=== PATIENT | female | born 1945 | race Caucasian/White ===

== ENCOUNTER → 2018-01-02 10:23 | Outpatient (CLI) | payer MEDICARE, BC, SELFPAY ==
--- NOTE | 2018-01-02 10:30 | XR_ITS ---
XR knee RT 3V HISTORY: ITS.REASON: ANTERIOR RT KNEE PAIN ORDERING PHYSICIAN: Joni Valente MD PATIENT AGE: 72 years COMPARISON: None FINDINGS: There are mild osteoarthritic changes of the medial compartment. Increased density is present in the suprapatellar region suggesting small knee joint effusion. No fracture or dislocation. No lytic or blastic change. IMPRESSION: Mild osteoarthritis with small knee joint effusion
== END ==
PROVIDERS: PCP Internal Medicine Adolescent Medicine; Visit Provider Internal Medicine Adolescent Medicine
DX: M25.561 Pain in right knee (principal)
CPT/HCPCS: 73562

== ENCOUNTER → 2018-01-18 10:04 | Outpatient (CLI) | payer MEDICARE, BC, SELFPAY ==
--- NOTE | 2018-01-18 10:07 | XR_ITS ---
XR DEXA axial skeleton HISTORY: ITS.REASON: POST MENOPAUSAL ORDERING PHYSICIAN: Joni Valente MD PATIENT AGE: 72 years COMPARISON: FINDINGS: The BMD measured at the right femoral neck femoral neck is 0.650 g/cm squared with a T score of -2.8. This is considered osteoporotic according to the World Health Organization criteria. Fracture risk is high. Treatment is advised. L1 L4 density has is -0.7. There is sclerosis in the mid lumbar spine. The radius 33% T score is -3.2 IMPRESSION: Osteoporosis with high fracture risk. Treatment suggested. Recommend follow-up exam in January 2019
== END ==
PROVIDERS: PCP Internal Medicine Adolescent Medicine; Visit Provider Internal Medicine Adolescent Medicine
DX: Z13.820 Encounter for screening for osteoporosis (principal); Z78.0 Asymptomatic menopausal state
CPT/HCPCS: 77080

== ENCOUNTER → 2018-04-11 16:07 | Outpatient (CLI) | payer MEDICARE, SELFPAY ==
--- NOTE | 2018-04-11 16:15 | XR_ITS ---
XR hip RT 2-3V w/pelvis HISTORY: ITS.REASON: RT HIP PAIN ORDERING PHYSICIAN: Nae Cortés PATIENT AGE: 72 years COMPARISON: 09/23/2015 FINDINGS: There are mild osteoarthritic changes of the right hip with decrease in the joint space superiorly and mild osteosclerosis of the acetabular roof with small subarticular cystic changes of the acetabulum and femoral head. The osteoarthritis is slightly worse compared to the previous exam. No fracture or dislocation. No lytic or blastic change. There is a bipolar prosthesis in the left hip in good alignment. IMPRESSION: Mild osteoarthritic changes of the right hip which is slightly worsened compared to the previous exam
== END ==
PROVIDERS: PCP Internal Medicine Adolescent Medicine; Visit Provider Nurse Practitioner Family
DX: M25.551 Pain in right hip (principal)
CPT/HCPCS: 73502

== ENCOUNTER → 2018-04-23 09:17 | Outpatient (POV) | payer MEDICARE, SELFPAY ==
[2018-04-23 09:42] VITALS: BP 183/64; PULSE 70; RESP 18; O2SAT 99; BMI 27.3
--- NOTE | 2018-04-23 11:47 | HMH.PAINSOAP ---
[facility] Pain Management SOAP Note Subjective:: Patient is a pleasant 72-year-old white female who presents today for follow-up. Patient had injections in her hip and SI joint in the past and did well with them. She is awaiting a right hip replacement. She rates her pain a 8 out of 10 today. Patient is interested in getting injections to help with the pain until she has her surgery. ROS General: no recent weight change, no fever, no sleep disturbances Respiratory: no cough, no shortness of air, no recurring pulmonary infections Cardiovascular/Peripheral Vascular: No chest pain, No palpitations, no edema, no shortness of breath. Gastrointestinal: no incontinence, normal bowel movements reported Genitourinary: no incontinence Musculoskeletal: Right SI joint pain, right hip pain Psychiatric: normal mood/ affect Neurological: [denies weakness in extremities], [denies balance issues] Objective:: Physical Exam General: Alert and oriented x3, no acute distress, pleasant and cooperative, [on room air] Lungs: Resps E/U, Symmetrical chest expansion, Eyes: PERRL Musculoskeletal: Flexion and extension of lumbar spine somewhat guarded secondary to pain, deep tendon reflexes normal, strength in upper and lower extremities [5/5], [abnormal gait noted] Neurological: speech clear, mechanical process engineer equal, no gross sensory deficits Assessment:: Right hip pain, sacroiliitis Plan:: We will schedule the patient for right SI right greater trochanteric bursa injection. I believe it would be beneficial for her. I will follow-up with the patient after her injection and reassess her symptoms at that time. Dr. Lopez has reviewed this note and agrees with this plan of care. This note was dictated using voice recognition software and may contain errors or omissions
--- NOTE | 2018-04-23 11:50 | P.CONS_ITS ---
[facility] Pain Management SOAP Note Subjective:: Patient is a pleasant 72-year-old white female who presents today for follow-up. Patient had injections in her hip and SI joint in the past and did well with them. She is awaiting a right hip replacement. She rates her pain a 8 out of 10 today. Patient is interested in getting injections to help with the pain until she has her surgery. ROS General: no recent weight change, no fever, no sleep disturbances Respiratory: no cough, no shortness of air, no recurring pulmonary infections Cardiovascular/Peripheral Vascular: No chest pain, No palpitations, no edema, no shortness of breath. Gastrointestinal: no incontinence, normal bowel movements reported Genitourinary: no incontinence Musculoskeletal: Right SI joint pain, right hip pain Psychiatric: normal mood/ affect Neurological: [denies weakness in extremities], [denies balance issues] Objective:: Physical Exam General: Alert and oriented x3, no acute distress, pleasant and cooperative, [on room air] Lungs: Resps E/U, Symmetrical chest expansion, Eyes: PERRL Musculoskeletal: Flexion and extension of lumbar spine somewhat guarded secondary to pain, deep tendon reflexes normal, strength in upper and lower extremities [5/5], [abnormal gait noted] Neurological: speech clear, ear muff assembler equal, no gross sensory deficits Assessment:: Right hip pain, sacroiliitis Plan:: We will schedule the patient for right SI right greater trochanteric bursa injection. I believe it would be beneficial for her. I will follow-up with the patient after her injection and reassess her symptoms at that time. Dr. Lopez has reviewed this note and agrees with this plan of care. This note was dictated using voice recognition software and may contain errors or omissions
== END ==
PROVIDERS: PCP Internal Medicine Adolescent Medicine; Visit Provider Clinical Nurse Specialist Family Health
DX: M46.1 Sacroiliitis, not elsewhere classified (principal)
CPT/HCPCS: 99213

== ENCOUNTER → 2018-05-28 10:44 | Outpatient (POV) | payer MEDICARE, SELFPAY ==
[2018-05-28 11:10] VITALS: BP 189/87; PULSE 68; RESP 18; O2SAT 98; BMI 27.6
--- NOTE | 2018-05-28 16:19 | HMH.PAINSOAP ---
[facility] Pain Management SOAP Note Subjective:: Patient is a very pleasant 72-year-old white female who presents today for follow-up after SI joint and bursa injection. Patient is awaiting a right hip replacement she rates her pain a 8 out of 10. She states that the injection did help her for 3 weeks. She states she had 50-60% relief of her pain during that time. Patient would like to repeat this 1 more time prior to surgery. ROS General: no recent weight change, no fever, no sleep disturbances Respiratory: no cough, no shortness of air, no recurring pulmonary infections Cardiovascular/Peripheral Vascular: No chest pain, No palpitations, no edema, no shortness of breath. Gastrointestinal: no incontinence, normal bowel movements reported Genitourinary: no incontinence Musculoskeletal: Right hip pain Psychiatric: normal mood/ affect Neurological: [denies weakness in extremities], [denies balance issues] Objective:: Physical Exam General: Alert and oriented x3, no acute distress, pleasant and cooperative, [on room air] Lungs: Resps E/U, Symmetrical chest expansion, Eyes: PERRL Musculoskeletal: Flexion and extension of lumbar spine somewhat guarded secondary to pain, deep tendon reflexes normal, strength in upper and lower extremities [5/5], [abnormal gait noted] positive SI joint compression test, hip thrust test, Alfredo's test on the right side, extreme point tenderness over right greater trochanteric bursa Neurological: speech clear, oncology patient navigator equal, no gross sensory deficits Assessment:: Sacroiliitis, bursitis Plan:: We will schedule right SI joint and right greater trochanteric bursa injection for the patient. We will do one more prior to her having surgery. I will follow-up with the patient at this time reassess her symptoms. Patient's been instructed to call the office if she has any issues prior to her next appointment. Dr. Lopez has reviewed this note and agrees with this plan of care. This note was dictated using voice recognition software and may contain errors or omissions
== END ==
PROVIDERS: PCP Internal Medicine Adolescent Medicine; Visit Provider Clinical Nurse Specialist Family Health
DX: M46.1 Sacroiliitis, not elsewhere classified (principal); M71.9 Bursopathy, unspecified
CPT/HCPCS: 99213

== ENCOUNTER → 2018-06-20 09:47 | Outpatient (CLI) | payer MEDICARE, SELFPAY ==
[2018-06-20 09:53] LABS: Microscopic, Urine URINE MICROSCOPIC (MICROSCOPIC)
--- NOTE | 2018-06-20 10:17 | XR_ITS ---
XR chest 2V HISTORY: ITS.REASON: COPD ORDERING PHYSICIAN: Raúl Merritt PATIENT AGE: 73 years COMPARISON: 03/27/2016 FINDINGS: The cardiomediastinal silhouette and pulmonary vascularity are within normal limits. The lungs are clear without infiltrates, suspicious nodules, or pleural effusions. There is mild hyperinflation with attenuation of the peripheral pulmonary vessels consistent with COPD. No acute bony abnormalities. IMPRESSION: COPD, no change with no acute finding
[2018-06-20 10:19] LABS: Appearance,Urine CLEAR (Clear); Bilirubin,Urine Negative (Negative); Blood, Urine Negative (Negative); Color,Urine YELLOW (Yellow); Glucose,Urine (UA) Negative (Negative); Ketones,Urine Negative (Negative); Leukocyte Esterase,Urine Negative (Negative); Nitrate,Urine Negative (Negative); PH,Urine 6.5 (5.0-8.5); Protein,Urine Negative (Negative); Urobilinogen,Urine 0.2 EU/dl (0.2)
[2018-06-20 10:32] LABS: Basophils # 0.1 K/mm3 (0-0.2); Basophils % 0.7 % (0.1-2.0); Eosinophils # 0.2 K/mm3 (0.0-0.4); Eosinophils % 1.8 % (0.1-12.0); Hematocrit 41.8 % (37.0-47.0); Hemoglobin 13.6 g/dL (12.2-16.2); Lymphocytes # 2.4 K/mm3 (0.7-4.5); Lymphocytes % 28.2 % (10-50); Mean Corpuscular HGB Conc 32.5 g/dL (31.8-35.4); Mean Corpuscular Hemoglobin 31.1 pg (27.0-31.2); Mean Corpuscular Volume 95.5 fl (81-99); Mean Platelet Volume 6.5 fl (7.4-10.4); Monocytes # 0.6 K/mm3 (0.1-1.0); Monocytes % 7.5 % (1.7-9.3); Neutrophils # 5.2 K/mm3 (1.8-7.8); Neutrophils % 61.9 % (37.0-80.0); Platelet Count 293 K/mm3 (142-424); Red Blood Count 4.38 M/mm3 (4.20-5.40); Red Cell Distribution Width 13.6 % (11.5-17.5); White Blood Count 8.3 K/mm3 (4.8-10.8)
[2018-06-20 10:38] LABS: INR 0.98 (0.9-1.1); Prothrombin Time 10.1 seconds (9.4-11.8)
[2018-06-20 11:06] LABS: Bacteria,Urine 3+ /lpf
[2018-06-20 13:37] LABS: Hemoglobin A1C 5.8 % (0.0-7.0)
[2018-06-20 13:40] LABS: Anion Gap 14.5 mEq/L (5-15); Blood Urea Nitrogen 17 mg/dL (7-18); Calcium 9.8 mg/dL (8.5-10.1); Carbon Dioxide 29 mmol/L (21.0-32.0); Chloride 95 mmol/L (98-107); Creatinine,Serum 0.76 mg/dL (0.55-1.02); Estimated Glomerular Filt Rate 75 ml/min (>60); GFR (African American) 91 ML/MIN (>60); Glucose 101 mg/dL (74-106); Potassium 4.5 mmoL/L (3.5-5.1); Sodium 134 mmol/L (136-145)
== END ==
PROVIDERS: Visit Provider Orthopaedic Surgery
DX: E11.9 Type 2 diabetes mellitus without complications (principal); J44.9 Chronic obstructive pulmonary disease, unspecified; R82.90 Unspecified abnormal findings in urine; Z01.818 Encounter for other preprocedural examination
CPT/HCPCS: 36415; 71046; 80048; 81001; 83036; 85025; 85610; 85730; 87086; 93005

== ENCOUNTER → 2018-10-30 08:15 | Outpatient (CLI) | payer MEDICARE, SELFPAY ==
--- NOTE | 2018-10-30 08:50 | CT_ITS ---
PROCEDURE: CT LUMBAR SPINE WO CON CLINICAL HISTORY: LUMBAR NEURALGIA,MECHANICAL LOW BACK PAIN Low back pain. Right leg and hip pain COMPARISON: DRIER AND PULVERIZER TENDER/O MRI-L-SPINE W/O from 03/02/2014 TECHNIQUE: Axial images obtained with sagittal and coronal reformats. All CT scans at the facility use one or more dose reduction, viz: automated exposure control, ma/kV adjustment per patient size (including targeted exams where dose is matched to indication, i.e. head), or iterative reconstruction technique. FINDINGS: There is moderate lumbar curvature convex right measuring 26 degrees by the Aburto technique. T10-T11: Mild bilateral lateral recess narrowing from facet and ligamentum hypertrophic change T11-T12: Unremarkable. T12-L1: Unremarkable. L1-L2: Mild degenerative disc disease with right lateral bulging disc L2-L3: Degenerate disc disease. L3-L4: Degenerate disc disease with concentric bulging disc. L4-5: Degenerate disc disease with concentric bulging disc eccentric toward the left with mild left-sided foraminal narrowing and mild left lateral recess narrowing. L5-S1: Degenerate disc disease with mild concentric bulging disc and mild bilateral foraminal narrowing. No acute fracture or dislocation. No lytic or blastic change. 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 IMPRESSION: Dextroscoliosis with multilevel lumbar spondylosis with degenerative disc disease with bulging disc and mild facet arthritic change. Please see above for detailed description at each level Dictated by: Jerman Skinner MD 10/31/2018 06:30 Signed by: <Electronically signed by Jerman Skinner MD in [place]> 10/31/2018 06:30
== END ==
PROVIDERS: PCP Internal Medicine Adolescent Medicine; Visit Provider Internal Medicine Adolescent Medicine
DX: M54.5 Low back pain (principal); M54.16 Radiculopathy, lumbar region
CPT/HCPCS: 72131

== ENCOUNTER → 2018-11-05 10:04 | Outpatient (POV) | payer MEDICARE, SELFPAY ==
--- NOTE | 2018-11-05 12:45 | P.CONS_ITS ---
[facility] Pain Management SOAP Note Subjective:: Patient is a pleasant 73-year-old white female who presents today for follow-up after recent CT of her lumbar spine. Patient had right hip replacement done back in July her hip pain seems to have resolved some she does have some numbness and tingling in the area of the surgery. She also had her left hip replaced several years back and she still has numbness and tingling in that area as well. But her complaint today is low back pain radiating into her legs. She does have an L4-L5 L5-S1 bulging disc. Patient past we discussed repeating one to see if this is beneficial. Her pain started back in September. She is not on any anticoagulation therapy. Patient has just recently completed physical therapy and is continuing a home stretching program. She rates her pain today a 5 out of 10. ROS General: no recent weight change, no fever, no sleep disturbances Respiratory: no cough, no shortness of air, no recurring pulmonary infections Cardiovascular/Peripheral Vascular: No chest pain, No palpitations, no edema, no shortness of breath. Gastrointestinal: no incontinence, normal bowel movements reported Genitourinary: no incontinence Musculoskeletal: Back pain, leg pain Psychiatric: normal mood/ affect Neurological: [denies weakness in extremities], [denies balance issues] Objective:: Physical Exam General: Alert and oriented x3, no acute distress, pleasant and cooperative, [on room air] Lungs: Resps E/U, Symmetrical chest expansion, Eyes: PERRL Musculoskeletal: Flexion and extension of lumbar spine somewhat guarded secondary to pain, deep tendon reflexes normal, strength in upper and lower extremities [5/5], [abnormal gait noted] Neurological: speech clear, bowl sander equal, no gross sensory deficits Assessment:: Degenerative disc disease lumbar spine with lumbar radiculopathy Plan:: We will schedule the patient for an L4-L5 lumbar epidural steroid injection and I believe given her symptomology this would be beneficial. I will follow-up with the patient after her injection reassess her symptoms at that time she is been instructed to call the office if she has any issues prior to her next appointment. Dr. Lopez has reviewed this note and agrees with this plan of care. This note was dictated using voice recognition software and may contain errors or omissions Pain Management Hx Components *Have you ever received a pneumonia vaccine?: Yes *Have you received a flu vaccine this season?: Yes - *Social History *Occupational Status:: retired *Travel in the last 8 weeks: None
== END ==
PROVIDERS: PCP Internal Medicine Adolescent Medicine; Visit Provider Clinical Nurse Specialist Family Health
DX: M51.16 Intervertebral disc disorders with radiculopathy, lumbar region (principal)
CPT/HCPCS: 99212

== ENCOUNTER → 2018-12-09 14:13 | Outpatient (POV) | payer MEDICARE, SELFPAY ==
[2018-12-09 14:29] VITALS: BP 117/55; PULSE 75; RESP 18; O2SAT 98; BMI 24.9
--- NOTE | 2018-12-10 08:34 | HMH.PAINSOAP ---
[facility] Pain Management SOAP Note Subjective:: Patient is a pleasant 73-year-old white female who presents today for follow-up after lumbar epidural steroid injection. Patient had no relief with this injection however her pain is changed. Patient's main pain is focal in her back. Patient has difficulty with twisting. Patient does have a CT and a MRI stating that she has spondylosis. She is completed physical therapy and is continuing at home. She is on anti-inflammatories. Patient and I discussed a medial branch block. She rates her pain sitting down a 4 out of 10 ROS General: no recent weight change, no fever, no sleep disturbances Respiratory: no cough, no shortness of air, no recurring pulmonary infections Cardiovascular/Peripheral Vascular: No chest pain, No palpitations, no edema, no shortness of breath. Gastrointestinal: no incontinence, normal bowel movements reported Genitourinary: no incontinence Musculoskeletal: Low back pain Psychiatric: normal mood/ affect, [denies depression], [denies anxiety] Neurological: [denies weakness in extremities], [denies balance issues] Objective:: Physical Exam General: Alert and oriented x3, no acute distress, pleasant and cooperative, Lungs: Resps E/U, Symmetrical chest expansion, Eyes: PERRL Positive Musculoskeletal: Flexion and extension of lumbar spine somewhat guarded secondary to pain, deep tendon reflexes normal, strength in upper and lower extremities [5/5], [abnormal gait noted] positive Kemps test and facet loading lumbar spine bilaterally Neurological: speech clear, utilization management um nurse equal, no gross sensory deficits Assessment:: Lumbar spondylosis Plan:: We will plan on an L4-L5 L5-S1 bilateral medial branch block/facet joint injection she understands the diagnostic nature of this. Patient potentially could be a rhizotomy candidate I will follow-up with the patient after this reassess her symptoms at that time she is been instructed to call the office if she has any issues prior to her next appointment. She is not on any anticoagulation therapy. Dr. Lopez has reviewed this note and agrees with this plan of care. This note was dictated using voice recognition software and may contain errors or omissions [facility] History I have reviewed the patient's past medical history: Yes Medical History: Reports:: Hypertension Denies:: Cancer, Diabetes Mellitus Type 1, Diabetes Mellitus Type 2, Internal Pacemaker, MRSA, Seizures *Have you ever received a pneumonia vaccine?: Yes *Have you received a flu vaccine this season?: Yes Laterality Cases: Left: Total Hip Replacement Other Surgeries: Yes: Thyroidectomy. No: Pacemaker Amputation: No Fractures: No - *Social History Smoking Status: Current every day smoker Tobacco Type: cigarettes # Packs/Day (cigarettes): 1 Alcohol Intake: never *Occupational Status:: other Housing: house Household Members: other *Travel in the last 8 weeks: None Family Hx:: Non-contributory
== END ==
PROVIDERS: PCP Internal Medicine Adolescent Medicine; Visit Provider Clinical Nurse Specialist Family Health
DX: M47.816 Spondylosis without myelopathy or radiculopathy, lumbar region (principal)
CPT/HCPCS: 99212

== ENCOUNTER → 2019-08-06 14:05 | Outpatient (CLI) | payer MEDICARE, SELFPAY ==
--- NOTE | 2019-08-06 14:20 | XR_ITS ---
PROCEDURE: XR FEMUR LT 2V CLINICAL INDICATION: LT HIP PAIN,LT SIDE SCIATICA COMPARISON: XR HIP LT 2-3V W/PELVIS from 08/06/2019 FINDINGS: An AP view of the pelvis shows a bilateral bipolar prosthesis present in good position. The left femur has an otherwise unremarkable appearance. No fracture or dislocation. Minimal osteoarthritic changes are present at the knee. IMPRESSION: Bipolar prosthesis present. No acute finding Dictated by: Jerman Skinner MD 08/06/2019 15:12 Electronically signed by Jerman Skinner MD in [place] 08/06/2019 15:12
--- NOTE | 2019-08-06 14:20 | XR_ITS ---
PROCEDURE: XR LUMBAR SPINE MIN 4V CLINICAL INDICATION: LT HIP PAIN,LT SIDE SCIATICA COMPARISON: LS5 LUMBAR SPINE 5 VIEWS from 02/20/[address] CHEST W/ CONTRAST from 12/21/2014 FINDINGS: Moderate dextroscoliosis of the lumbar spine slightly worse. Multilevel degenerative disc disease. There is mild right lateral translation of L2 of 7 mm. There is degenerative disc disease from L1-S1. No obvious fracture or dislocation. Facet arthritic changes are present on the left at the lumbosacral junction. Bilateral bipolar hip prosthesis are present. IMPRESSION: Scoliosis with degenerative disc disease. These findings have progressed since the previous exam Dictated by: Jerman Skinner MD 08/06/2019 15:10 Electronically signed by Jerman Skinner MD in [place] 08/06/2019 15:10
== END ==
PROVIDERS: PCP Internal Medicine Adolescent Medicine; Visit Provider Internal Medicine Adolescent Medicine
DX: M25.552 Pain in left hip (principal); M54.32 Sciatica, left side
CPT/HCPCS: 72110; 73502; 73552

== ENCOUNTER → 2019-08-07 10:17 | Outpatient (POV) | payer MEDICARE, SELFPAY ==
[2019-08-07 12:07] VITALS: BP 143/85; PULSE 69; RESP 18; TEMP 36.6; O2SAT 99; BMI 25.1
--- NOTE | 2019-08-07 13:17 | HMH.PAINSOAP ---
[facility] Pain Management SOAP Note Subjective:: Patient is a 74-year-old white female who presents today for follow-up after medial branch block/facet joint injections at L4-L5 L5-S1 bilaterally. Patient is being treated for low back pain with lumbar spondylosis and facet arthropathy lumbar spine. Patient rates her pain a 3 out of 10 today. She says she is continuing to have low back pain with radiation into her left hip and leg lateral thigh area. She says that she has numbness and tingling in her left leg. Patient says that she did get approximately 60% relief with her medial branch block, however, she does feel that her previous injection of a SI injection did give her more relief. She says that she would like to proceed with a another left SI injection and a left trochanteric bursa injection. Patient does point to her left hip and says that she feels severe pain over her left hip with walking and standing. Her pain is improved with sitting. She says she is currently on Xifaxan prescribed per Dr. Blank. She has been encouraged not to take any type of steroid injection at this time until she completes her medication. Patient says she will complete the medicine on Sunday this upcoming week. Review of Systems General: No recent weight changes, no fever, no sleep disturbances Respiratory: No cough, no shortness of air, no recurring pulmonary infections Cardiovascular/peripheral vascular: No chest pain, no palpitations, no edema, no shortness of breath Gastrointestinal: No new onset incontinence, normal bowel movements reported Genitourinary: No new onset incontinence Musculoskeletal: Low back pain, left hip pain, left lateral thigh pain Psychiatric: Normal mood/affect Neurological: [Denies weakness in extremities], [denies balance issues] Objective:: Physical exam General: Alert and oriented x3, no acute distress, pleasant and cooperative, [on room air] Lungs: Respirations even and unlabored, symmetrical chest expansion Eyes: PERRL Musculoskeletal: Flexion and extension of lumbar spine somewhat guarded secondary to pain, deep tendon reflexes normal, strength in upper and lower extremities [5/5], [abnormal gait noted] Neurological: Speech clear, tutoring manager equal, no gross sensory deficit Assessment:: Degenerative disc disease lumbar spine with lumbar radiculopathy symptoms, lumbar spondylosis, facet arthropathy lumbar spine, left sacroiliitis, left trochanteric bursitis Plan:: Patient does not feel she got adequate relief with the medial branch block. She would like to proceed with a left SI joint injection left trochanteric bursa injection. We will schedule her for the procedures after she completes her medication of Xifaxan. We will see her back in the clinic afterwards to reassess her symptoms. Patient has been instructed to contact clinic if she has any concerns for next appointment. The patient and I specifically discussed risk factors for COVID19. These risks include, but are not limited to age greater than 60, heart or lung disease, diabetes, immunosuppression, and travel. We also discussed NSAIDs may worsen COVID19 infection or symptoms. Patient should not use NSAIDs to treat COVID19 signs or symptoms. Patient was also informed that any type of corticosteroid of any form (oral or injection) will decrease the patient's immune system response and may increase the likelihood of COVID19 infection and symptoms. Given the risks and benefits of the injection, she would like to proceed with the injection. Dr. Lopez has reviewed this note and agrees with this plan of care. This note was dictated using voice recognition software and make contain errors or omissions. [facility] History I have reviewed the patient's past medical history: Yes Medical History: Reports:: Hypertension Denies:: Cancer, Diabetes Mellitus Type 1, Diabetes Mellitus Type 2, Internal Pacemaker, MRSA, Seizures *Have you ever received a pneumonia vaccine?: Yes *Have
== END ==
PROVIDERS: PCP Internal Medicine Adolescent Medicine; Visit Provider Clinical Nurse Specialist Family Health
DX: M51.16 Intervertebral disc disorders with radiculopathy, lumbar region (principal); M47.816 Spondylosis without myelopathy or radiculopathy, lumbar region; M12.88 Other specific arthropathies, not elsewhere classified, other specified site; M46.1 Sacroiliitis, not elsewhere classified; M70.62 Trochanteric bursitis, left hip
CPT/HCPCS: 99212

== ENCOUNTER 2019-08-12 14:02 | Day surgery (SDC) | payer MEDICARE, SELFPAY ==
[2019-08-12 14:09] VITALS: BP 159/75; PULSE 75; RESP 18; TEMP 36.7; O2SAT 98; BMI 25.1
[2019-08-12 14:28] VITALS: BP 162/85; PULSE 85; RESP 18
[2019-08-12 14:31] VITALS: BP 165/88; PULSE 79; RESP 18; O2SAT 98
--- NOTE | 2019-08-12 14:40 | HMH.PMPROC ---
- Procedure Date: 08/12/19 Time: 14:40 Anesthesiologist:: Yuliya Caraballo APRN Complications:: None Pre-procedure Diagnosis:: Left hip pain, arthritis, sacroiliitis Post-procedure Diagnosis:: Same Indications for Procedure:: Patient is a pleasant 74-year-old white female who presents today for a left SI joint injection left hip injection. Patient has had both hips replaced by Dr. Ramires. She has pain in her left SI joint left hip. She rates it a 5 out of 10. She has a positive Niko test SI joint compression test and Cyndi's test on the left side. She is also extremely tender over her left hip. Physical Exam General: Alert and oriented x3, no acute distress, pleasant and cooperative, [on room air] Lungs: Resps E/U, Symmetrical chest expansion, Eyes: PERRL Musculoskeletal: Flexion and extension of lumbar spine somewhat guarded secondary to pain, deep tendon reflexes normal, strength in upper and lower extremities [5/5], [abnormal gait noted] Neurological: speech clear, dry ice maker equal, no gross sensory deficits Procedure Details:: Informed consent was obtained and the risks and benefits of the procedure were explained to the patient. Patient was taken to the procedure room. Patient was placed prone on the procedure table. The left hip was prepped using ChloraPrep as a cleansing solution. The skin and subcutaneous tissues were anesthetized using lidocaine. Using fluoroscopic guidance I placed a 22-gauge spinal needle into the inferior aspect of the left SI joint. After this I injected 5 mL bupivacaine 0.25% and Depo-Medrol 40 mg into the [right] SI joint. The patient tolerated the procedure well with no complication. We then moved onto the intra-articular hip injection. Under fluoroscopic guidance the area of maximal tenderness was identified. The skin overlying the left hip region was prepped with ChloraPrep and draped in sterile fashion. Strict aseptic technique was observed throughout the entire procedure. The skin was anesthetized with 1% lidocaine without epinephrine. A 22-gauge spinal needle was passed to the joint space using fluoroscopic guidance. 1.5 mL's of Omnipaque 300 preservative-free contrast was injected into the joint to confirm location 3 mL's of a solution containing 0.25% bupivacaine and 40 mg of Depo-Medrol were injected into the left hip. Patient tolerated well. Plan and Disposition:: Follow-up with the patient after 2 to 3 weeks reassess her symptoms at that time she has been instructed to call the office if she has any issues prior to her next appointment. Dr. Lopez has reviewed this note and agrees with this plan of care. This note was dictated using voice recognition software and may contain errors or omissions
[2019-08-12 14:45] VITALS: BP 153/78; PULSE 72; RESP 20; O2SAT 98
== END 2019-08-12 14:46 | disposition home or self-care (01) ==
LOC: SC.PAINP 14:03
PROVIDERS: PCP Internal Medicine Adolescent Medicine; Visit Provider Clinical Nurse Specialist Family Health
DX: M25.552 Pain in left hip (principal); M19.90 Unspecified osteoarthritis, unspecified site; M46.1 Sacroiliitis, not elsewhere classified
CPT/HCPCS: 20610; 27096; 77002; G0260; J1030; Q9966

== ENCOUNTER → 2019-09-02 09:27 | Outpatient (POV) | payer MEDICARE, SELFPAY ==
[2019-09-02 09:30] VITALS: BP 175/84; PULSE 65; RESP 18; TEMP 36.8; O2SAT 99; BMI 27.3
--- NOTE | 2019-09-02 10:16 | P.CONS_ITS ---
[facility] Pain Management SOAP Note Subjective:: Patient is a pleasant 74-year-old white female who presents today for follow-up after left SI joint injection. Patient is doing well at this time. She rates her pain today 2 out of 10. She just recently returned from a visit to [place]. ROS General: no recent weight change, no fever, no sleep disturbances Respiratory: no cough, no shortness of air, no recurring pulmonary infections Cardiovascular/Peripheral Vascular: No chest pain, No palpitations, no edema, no shortness of breath. Gastrointestinal: no new onset incontinence, normal bowel movements reported Genitourinary: no new onset incontinence Musculoskeletal: SI joint pain, hip pain at times Psychiatric: normal mood/ affect, Neurological: [denies new onset weakness in extremities], [denies new onset balance issues] Objective:: Physical Exam General: Alert and oriented x3, no acute distress, pleasant and cooperative, [on room air] Lungs: Resps E/U, Symmetrical chest expansion, Eyes: PERRL Musculoskeletal: Flexion and extension of lumbar spine somewhat guarded secondary to pain, deep tendon reflexes normal, strength in upper and lower extremities [5/5], antalgic gait noted Neurological: speech clear, corrections caseworker equal, no gross sensory deficits Assessment:: Sacroiliitis, left hip pain, arthritis Plan:: We will see the patient back on an as-needed basis she has been instructed to call the office if she has any issues prior to her next appointment. Dr. Lopez has reviewed this note and agrees with this plan of care. This note was dictated using voice recognition software and may contain errors or omissions [facility] History I have reviewed the patient's past medical history: Yes Medical History: Reports:: Arrhythmia, Hypertension Denies:: Cancer, Diabetes Mellitus Type 1, Diabetes Mellitus Type 2, Internal Pacemaker, MRSA, Seizures *Have you ever received a pneumonia vaccine?: Yes *Have you received a flu vaccine this season?: Yes Other Medical History: Reports: Thyroid Disease. Denies: Blood Transfusion Reaction Laterality Cases: Bilateral: Total Hip Replacement Other Surgeries: Yes: Thyroidectomy. No: Pacemaker Amputation: No Fractures: No - *Social History Smoking Status: Current every day smoker Tobacco Type: cigarettes # Packs/Day (cigarettes): 1 Alcohol Intake: never *Occupational Status:: other Housing: house Household Members: other *Travel in the last 8 weeks: None Family Hx:: Non-contributory
== END ==
PROVIDERS: PCP Internal Medicine Adolescent Medicine; Visit Provider Clinical Nurse Specialist Family Health
DX: M46.1 Sacroiliitis, not elsewhere classified (principal); M19.90 Unspecified osteoarthritis, unspecified site
CPT/HCPCS: 99212

== ENCOUNTER → 2019-12-29 10:37 | Outpatient (CLI) | payer MEDICARE, SELFPAY ==
[2019-12-29 12:19] LABS: Alanine Aminotransferase 13 U/L (12-78); Albumin Level 4.2 g/dl (3.5-5.0); Albumin/Globulin Ratio 1.6 (1.1-1.8); Alkaline Phosphatase 49 U/L (38-126); Anion Gap 12.4 mEq/L (5-15); Aspartate Amino Transferase 22 U/L (14-36); Bilirubin,Total 0.4 mg/dl (0.2-1.3); Blood Urea Nitrogen 15 mg/dl (7-17); Calcium 10.3 mg/dl (8.4-10.2); Carbon Dioxide 32 mmol/L (22.0-30.0); Chloride 90 mmol/L (98-107); Estimated Glomerular Filt Rate 70 ml/min (>60); GFR (African American) 85 ML/MIN (>60); Globulin 2.6 g/dL (1.3-3.2); Glucose 105 mg/dl (74-100); Potassium 4.4 mmoL/L (3.5-5.1); Sodium 130 mmol/L (136-145); Total Protein,Serum 6.8 g/dl (6.3-8.2)
[2019-12-29 13:34] LABS: Basophils # 0.1 K/mm3 (0-0.2); Basophils % 0.8 % (0.1-2.0); Eosinophils # 0.2 K/mm3 (0.0-0.4); Eosinophils % 2.1 % (0.1-12.0); Hematocrit 43.1 % (37.0-47.0); Hemoglobin 13.7 g/dL (12.2-16.2); Lymphocytes # 2.1 K/mm3 (0.7-4.5); Mean Corpuscular HGB Conc 31.7 g/dL (31.8-35.4); Mean Corpuscular Hemoglobin 30.9 pg (27.0-31.2); Mean Corpuscular Volume 97.4 fl (81-99); Mean Platelet Volume 8.2 fl (7.4-10.4); Monocytes # 0.6 K/mm3 (0.1-1.0); Monocytes % 7.8 % (1.7-9.3); Neutrophils # 4.9 K/mm3 (1.8-7.8); Neutrophils % 62.3 % (37.0-80.0); Platelet Count 354 K/mm3 (142-424); Red Blood Count 4.43 M/mm3 (4.20-5.40); Red Cell Distribution Width 13.4 % (11.5-17.5); White Blood Count 7.8 K/mm3 (4.8-10.8)
== END ==
PROVIDERS: Visit Provider Internal Medicine Adolescent Medicine
DX: K52.9 Noninfective gastroenteritis and colitis, unspecified (principal)
CPT/HCPCS: 36415; 80053; 85025

== ENCOUNTER → 2019-12-30 14:14 | Outpatient (CLI) | payer MEDICARE, SELFPAY ==
[2019-12-30 14:19] LABS: Adenovirus F 40/41, stool Not Detected (NotDetected); Astrovirus Not Detected (NotDetected); Campylobacter Not Detected (NotDetected); Clostridium Difficile A/B, PCR Not Detected (NotDetected); Cryptosporidium Not Detected (NotDetected); Cyclospora Cayetanesis Not Detected (NotDetected); Entamoeba histolytica Not Detected (NotDetected); Enteroaggregative E coli Not Detected (NotDetected); Enteropathogenic E coli Not Detected (NotDetected); Enterotoxigenic E coli Not Detected (NotDetected); Giardia lamblia Not Detected (NotDetected); Norovirus Not Detected (NotDetected); Plesimonas Shigalloides, PCR Not Detected (NotDetected); Rotavirus A Not Detected (NotDetected); Salmonella, PCR Not Detected (NotDetected); Sapovirus Not Detected (NotDetected); Shiga-like toxin E coli Not Detected (NotDetected); Shigella Enterovasive E coli Not Detected (NotDetected); Vibrio Cholerae Not Detected (NotDetected); Vibrio, PCR Not Detected (NotDetected); Yersinia Entercolitica, PCR Not Detected (NotDetected)
[2020-01-02 10:04] LABS: Fats, Neutral Normal (.); Fats, Total Normal (.)
[2020-01-05 23:15] LABS: Calprotectin, Fecal 68 ug/g (0-120)
== END ==
PROVIDERS: Visit Provider Internal Medicine Adolescent Medicine
DX: K52.9 Noninfective gastroenteritis and colitis, unspecified (principal)
CPT/HCPCS: 82705; 83993; 87205; 87506

== ENCOUNTER → 2020-01-24 11:37 | Outpatient (CLI) | payer MEDICARE, SELFPAY ==
[2020-01-24 15:58] LABS: Coronavirus 19 IgG Antibody Positive (Negative); Coronavirus 19 IgM Antibody Negative (Negative)
== END ==
PROVIDERS: Visit Provider Internal Medicine Gastroenterology
DX: Z01.818 Encounter for other preprocedural examination (principal); Z12.11 Encounter for screening for malignant neoplasm of colon
CPT/HCPCS: 36415; 86328

== ENCOUNTER 2020-01-26 09:53 | Day surgery (SDC) | payer MEDICARE, SELFPAY ==
[2020-01-20 15:15] VITALS: BMI 24.5
[2020-01-26] VITALS (7 sets, daily range): BP systolic 94–135; BP diastolic 53–69; PULSE 62–81; RESP 18; TEMP 36.3–36.6; O2SAT 96–97
--- NOTE | 2020-01-26 10:40 | P.PN_ITS ---
[facility] Anesthesia Checklist - Patient Identification Patient Identification: Arm Band, Verbal (Name & ) - Structural Data Admitted From: Home Planned Operative Procedure/s: Colonoscopy Consent for Planned Operative Procedure(s) Verified: Yes Verified Documents: Surgical Consent, History and Physical - NPO Status Verified Time NPO: 00:00 - Chart Verification Results Verified: CBC, BMP - Additional verifications Anesthesia Reactions: No Hx Blood Transfusions: No Blood Transfusion Reaction: No - Airway Assessment C-Spine Mobility Assessed: Yes TMJ Mobility Assessed: Yes Dentition: Good Dentition - Neurological Assessment Level of Consciousness: Awake, Alert, Appropriate, Follows Commands Hx Seizures: No Numbness or tingling in extremities: No - Anesthesia Plan Anesthesia Risk discussed: Yes Anesthesia Plan: Verified ASA Class: III Anesthesia Type: MAC [facility] History I have reviewed the patient's past medical history: Yes Medical History: Reports:: Anxiety, Arrhythmia, Chronic Obstructive Pulmonary Disease (COPD), Hypertension Denies:: Cancer, Diabetes Mellitus Type 1, Diabetes Mellitus Type 2, Internal Pacemaker, MRSA, Seizures *Have you ever received a pneumonia vaccine?: Yes *Have you received a flu vaccine this season?: Yes Other Medical History: Reports: Hypothyroidism, Thyroid Disease. Denies: Blood Transfusion Reaction Anesthesia experience/problems:: None Laterality Cases: Bilateral: Cataract, Total Hip Replacement Other Surgeries: Yes: Thyroidectomy. No: Pacemaker Amputation: No Fractures: No - *Social History Smoking Status: Current every day smoker Tobacco Type: cigarettes # Packs/Day (cigarettes): 1 Alcohol Intake: never Substance Use Type: denies use *Occupational Status:: retired Housing: house Household Members: spouse *Travel in the last 8 weeks: None Family Hx:: No significant family history
--- NOTE | 2020-01-26 11:06 | HMH.PROC ---
[facility] Procedure Note Procedure Note:: Colonoscopy Procedure Report: Colonoscopy with cold snare polypectomy and cold biopsies Endoscopist: Jorge Cortez II, MD Referring physician: Joni Valente M.D. Date of Procedure: January 26, 2020 Equipment: Olympus 180 variable stiffness pediatric colonoscope Sedation: MAC sedation Indication: Mrs. Braxton is a 74-year-old female who has had a change in her bowel habits. The patient does state that she has had some intermittent chronic diarrhea since her cholecystectomy more than 20 years ago. She would have some postprandial bowel urgency. Since June or July 2019, she has noted a change in her bowel habits with thin stools that are either loose or watery. She will see some yellow bilious discoloration and some slimy mucus. She does state that she had colitis many years ago. Her last colonoscopy was more than 10 years ago. The patient has had some gassiness and bloating. She reports no abdominal pain or cramps. She reports no rectal bleeding. She reports no family history of colitis, Crohn's disease or colon cancer. Her PCR gastrointestinal panel was also reportedly normal. Procedure: Prior to the procedure, a history and physical exam was performed, and patient's medications and allergies were reviewed. The risks, benefits and alternatives of the sedation and procedure were discussed with the patient. All questions were answered and informed consent was obtained. The patient was brought to the procedure room. Patient identification and proposed procedure were verified by the physician and the nurse. The patient was placed in a left lateral decubitus position and the scope was passed under direct vision. Throughout the procedure, the patient's blood pressure, pulse, and oxygen saturations were monitored continuously. The colonoscopy was accomplished without difficulty. The patient tolerated the procedure well. Findings: On digital rectal examination there was normal rectal tone. There were no external hemorrhoids. The colonoscope was introduced through the anal canal to the rectum and advanced to the cecum. The ileocecal valve and appendiceal orifice were identified. The scope was advanced a short distance into the ileum which appeared grossly normal. The scope was then withdrawn into the colon. The cecum was normal. There were 5 colon polyps (ascending x1 (4 mm), descending x2 (4 and 6 mm), sigmoid x1 (7 mm) and rectosigmoid x1 (5 mm)) which were all removed via cold snare polypectomy. There were extensive scattered diverticuli throughout the colon but more predominantly in the descending and sigmoid colon (LEFT colon). Random biopsies were taken from both the right and the left colon to rule out microscopic colitis. The rectum itself was normal. Upon retroflexion within the rectum there were grade 1-2 internal hemorrhoids. The preparation was excellent throughout with [place] Preparation Score of 9. The cecal time was 13 minutes. Impression: 1. Colonic polyps x5 2. Extensive pandiverticulosis 3. Grade 1-2 internal hemorrhoids Plan: I will follow-up the polyp histology and biopsies. She certainly may have microscopic/lymphocytic colitis. I would encourage bulk fiber supplementation (FiberCon 2 tablets by mouth twice daily). If the biopsies are normal, I would consider colestipol. If the biopsies do show evidence of microscopic (lymphocytic or collagenous colitis), I will recommend treatment with budesonide/Entocort. I will discuss the findings with the patient and family.
== END 2020-01-26 12:11 | disposition home or self-care (01) ==
LOC: OUTP 09:57
PROVIDERS: PCP Internal Medicine Adolescent Medicine; Visit Provider Internal Medicine Gastroenterology
PROC: 0DJD8ZZ Inspection of Lower Intestinal Tract, Via Natural or Artificial Opening Endoscopic (ICD-10-PCS; CPT 45378; principal; 2020-01-26 10:30)
DX: K63.5 Polyp of colon (principal); K57.30 Diverticulosis of large intestine without perforation or abscess without bleeding; K64.0 First degree hemorrhoids; K52.9 Noninfective gastroenteritis and colitis, unspecified; Z90.49 Acquired absence of other specified parts of digestive tract; J44.9 Chronic obstructive pulmonary disease, unspecified; I10 Essential (primary) hypertension; F41.9 Anxiety disorder, unspecified; I49.9 Cardiac arrhythmia, unspecified; E03.9 Hypothyroidism, unspecified; Z72.0 Tobacco use
CPT/HCPCS: 45385; 88305

== ENCOUNTER → 2020-03-22 10:08 | Outpatient (POV) | payer MEDICARE, SELFPAY | PROVIDERS: Visit Provider Nurse Practitioner Family | DX: Z00.00 Encounter for general adult medical examination without abnormal findings (principal) ==

== ENCOUNTER → 2020-06-21 10:02 | Outpatient (POV) | payer MEDICARE, SELFPAY ==
[2020-06-21 10:52] VITALS: BP 135/85; PULSE 65; RESP 18; TEMP 36.8; O2SAT 98; BMI 26.4
--- NOTE | 2020-06-21 11:31 | P.CONS_ITS ---
[facility] Pain Management SOAP Note Subjective:: Patient is a pleasant 75-year-old white female who presents today for follow-up. Patient had a left SI joint injection back summer of last year. She is done well until recently. She rates her pain a 6 out of 10. Her pain is beginning to return. Mostly in her low back radiating down her left leg does not past her knee. Patient is interested in injective therapy given the efficacy of this in the past. She got over 80% relief for over 3 months. She has a positive Niko test SI joint compression test Cyndi's test and distraction test on the left side. ROS General: no recent weight change, no fever, no sleep disturbances Respiratory: no cough, no shortness of air, no recurring pulmonary infections Cardiovascular/Peripheral Vascular: No chest pain, No palpitations, no edema, no shortness of breath. Gastrointestinal: no new onset incontinence, normal bowel movements reported Genitourinary: no new onset incontinence Musculoskeletal: Left SI joint pain Psychiatric: normal mood/ affect Neurological: [denies new onset weakness in extremities], [denies new onset balance issues] Objective:: Physical Exam General: Alert and oriented x3, no acute distress, pleasant and cooperative, [on room air] Lungs: Resps E/U, Symmetrical chest expansion, Eyes: PERRL Musculoskeletal: Flexion and extension of lumbar spine somewhat guarded secondary to pain, deep tendon reflexes normal, strength in upper and lower extremities [5/5], [abnormal gait noted] Neurological: speech clear, power generation turbine room operator equal, no gross sensory deficits Assessment:: Sacroiliitis Plan:: We will schedule the patient for left SI joint injection. We will follow up with her after this reassess her symptoms at that time she has been instructed to call the office if she has any issues prior to her next appointment. Dr. Lopez has reviewed this note and agrees with this plan of care. This note was dictated using voice recognition software and may contain errors or omissions [facility] History I have reviewed the patient's past medical history: Yes Medical History: Reports:: Anxiety, Arrhythmia, Chronic Obstructive Pulmonary Disease (COPD), Hypertension Denies:: Cancer, Diabetes Mellitus Type 1, Diabetes Mellitus Type 2, Internal Pacemaker, MRSA, Seizures *Have you ever received a pneumonia vaccine?: Yes *Have you received a flu vaccine this season?: Yes Other Medical History: Reports: Hypothyroidism, Thyroid Disease. Denies: Blood Transfusion Reaction Laterality Cases: Bilateral: Total Hip Replacement Other Surgeries: Yes: Thyroidectomy. No: Pacemaker Amputation: No Fractures: No - *Social History Smoking Status: Current every day smoker Tobacco Type: cigarettes # Packs/Day (cigarettes): 1 Alcohol Intake: never Substance Use Type: denies use *Occupational Status:: retired Housing: house Household Members: spouse *Travel in the last 8 weeks: None - Psychiatric History Pschychiatric History:: Reports:: Anxiety Family Hx:: No significant family history
== END ==
PROVIDERS: Visit Provider Clinical Nurse Specialist Family Health
DX: M46.1 Sacroiliitis, not elsewhere classified (principal)
CPT/HCPCS: 99212; G0463

== ENCOUNTER 2020-07-02 10:22 | Day surgery (SDC) | payer MEDICARE, SELFPAY ==
[2020-07-02 10:31] VITALS: BP 186/80; PULSE 64; RESP 18; TEMP 36.6; O2SAT 98; BMI 19.2
[2020-07-02 10:53] VITALS: BP 174/88; PULSE 85; RESP 18; TEMP 36.8; O2SAT 98
[2020-07-02 10:56] VITALS: BP 168/88; PULSE 78; RESP 18; O2SAT 98
[2020-07-02 11:07] VITALS: BP 178/68; PULSE 64; RESP 20; O2SAT 98
--- NOTE | 2020-07-02 11:08 | P.PCN_ITS ---
- Procedure Date: 07/02/20 Time: 11:08 Anesthesiologist:: Mike Lopez MD Complications:: None Pre-procedure Diagnosis:: Sacroiliitis Post-procedure Diagnosis:: Same Indications for Procedure:: Patient is a pleasant 75-year-old white female who we are treating for this. She has tenderness over the left SI joint. She has a positive Cyndi's test on the left side. She is positive Niko test on the left side. She has positive SI joint compression test on the left side. She has a positive distraction test on left side. We will plan on left SI joint injection under fluoroscopy today to help with pain symptoms. Procedure Details:: Left SI joint injection under fluoroscopy Informed consent was obtained and the risks and benefits of the procedure was e xplained to the patient. Patient was taken to the procedure room. Patient was placed prone on the procedure table. The left hip was prepped using ChloraPrep. The skin and subcutaneous tissues were anesthetized using lidocaine. I placed a 22-gauge spinal needle into the inferior aspect of the left SI joint. Needle placement was confirmed with dye. After this we injected 5 mL bupivacaine 0.25% and Depo-Medrol 40 mg into the left SI joint. The patient tolerated the procedure well with no complication. Plan and Disposition:: We will follow-up with her in 2 weeks. Will reevaluate symptoms at that time.
== END 2020-07-02 11:08 | disposition home or self-care (01) ==
LOC: SC.PAINP 10:26
PROVIDERS: PCP Internal Medicine Adolescent Medicine; Visit Provider Anesthesiology
DX: M46.1 Sacroiliitis, not elsewhere classified (principal); I10 Essential (primary) hypertension; J44.9 Chronic obstructive pulmonary disease, unspecified; F41.9 Anxiety disorder, unspecified; F32.9 Major depressive disorder, single episode, unspecified; E89.0 Postprocedural hypothyroidism; Z90.49 Acquired absence of other specified parts of digestive tract; Z88.8 Allergy status to other drugs, medicaments and biological substances; Z88.1 Allergy status to other antibiotic agents; Z91.040 Latex allergy status
CPT/HCPCS: 27096; G0260; J1040; Q9966

== ENCOUNTER → 2020-07-19 11:36 | Outpatient (POV) | payer MEDICARE, SELFPAY ==
[2020-07-19 11:43] VITALS: BP 148/77; PULSE 52; RESP 18; O2SAT 96; BMI 23.6
--- NOTE | 2020-07-19 11:56 | HMH.PAINSOAP ---
[facility] Pain Management SOAP Note Subjective:: 75-year-old white female presents today for follow-up after left SI joint injection. Patient has had significant improvement rating her pain today 3 out of 10. Patient usually gets up to 80% relief for 3 to 4 months. Overall patient doing well at this time. ROS General: no recent weight change, no fever, no sleep disturbances Respiratory: no cough, no shortness of air, no recurring pulmonary infections Cardiovascular/Peripheral Vascular: No chest pain, No palpitations, no edema, no shortness of breath. Gastrointestinal: no new onset incontinence, normal bowel movements reported Genitourinary: no new onset incontinence Musculoskeletal: Left SI joint pain Psychiatric: normal mood/ affect Neurological: [denies new onset weakness in extremities], [denies new onset balance issues] Objective:: Physical Exam General: Alert and oriented x3, no acute distress, pleasant and cooperative, [on room air] Lungs: Resps E/U, Symmetrical chest expansion, Eyes: PERRL Musculoskeletal: Flexion and extension of lumbar spine somewhat guarded secondary to pain, deep tendon reflexes normal, strength in upper and lower extremities [5/5], slightly antalgic gait noted Neurological: speech clear, learning support services director equal, no gross sensory deficits Assessment:: Sacroiliitis Plan:: We will see the patient back in 2 months reassess her symptoms at that time if she has any issues prior to this appointment she has been instructed to call the office. Dr. Lpoez has reviewed this note and agrees with this plan of care. This note was dictated using voice recognition software and may contain errors or omissions [facility] History I have reviewed the patient's past medical history: Yes Medical History: Reports:: Anxiety, Arrhythmia, Chronic Obstructive Pulmonary Disease (COPD), Hypertension Denies:: Cancer, Diabetes Mellitus Type 1, Diabetes Mellitus Type 2, Internal Pacemaker, MRSA, Seizures *Have you ever received a pneumonia vaccine?: Yes *Have you received a flu vaccine this season?: Yes Other Medical History: Reports: Hypothyroidism, Thyroid Disease. Denies: Blood Transfusion Reaction Laterality Cases: Bilateral: Total Hip Replacement Other Surgeries: Yes: Cholecystectomy, Thyroidectomy. No: Pacemaker Amputation: No Fractures: No - *Social History Smoking Status: Current every day smoker Tobacco Type: cigarettes # Packs/Day (cigarettes): 1 Alcohol Intake: never Substance Use Type: denies use *Occupational Status:: other Housing: house Household Members: spouse *Travel in the last 8 weeks: None - Psychiatric History Pschychiatric History:: Reports:: Anxiety Family Hx:: No significant family history
== END ==
PROVIDERS: PCP Internal Medicine Adolescent Medicine; Visit Provider Clinical Nurse Specialist Family Health
DX: M46.1 Sacroiliitis, not elsewhere classified (principal)
CPT/HCPCS: 99212; G0463

== ENCOUNTER → 2020-11-29 11:03 | Outpatient (CLI) | payer MEDICARE, SELFPAY ==
[2020-11-29 11:43] LABS: Basophils # 0.1 K/mm3 (0-0.2); Eosinophils # 0.1 K/mm3 (0.0-0.4); Eosinophils % 0.9 % (0.1-12.0); Hematocrit 45.1 % (37.0-47.0); Hemoglobin 14.7 g/dL (12.2-16.2); Lymphocytes # 2.3 K/mm3 (0.7-4.5); Lymphocytes % 29.3 % (10-50); Mean Corpuscular HGB Conc 32.5 g/dL (31.8-35.4); Mean Corpuscular Hemoglobin 32.8 pg (27.0-31.2); Mean Corpuscular Volume 100.9 fl (81-99); Mean Platelet Volume 6.7 fl (7.4-10.4); Monocytes # 0.6 K/mm3 (0.1-1.0); Monocytes % 7.2 % (1.7-9.3); Neutrophils # 4.8 K/mm3 (1.8-7.8); Neutrophils % 61.4 % (37.0-80.0); Platelet Count 322 K/mm3 (142-424); Red Blood Count 4.47 M/mm3 (4.20-5.40); Red Cell Distribution Width 12.6 % (11.5-17.5); White Blood Count 7.8 K/mm3 (4.8-10.8)
[2020-11-29 12:29] LABS: Alanine Aminotransferase 17 U/L (12-78); Albumin Level 4.2 g/dl (3.5-5.0); Albumin/Globulin Ratio 1.8 (1.1-1.8); Alkaline Phosphatase 48 U/L (38-126); Anion Gap 13.8 mEq/L (5-15); Aspartate Amino Transferase 25 U/L (14-36); Bilirubin,Total 0.3 mg/dl (0.2-1.3); Blood Urea Nitrogen 10 mg/dl (7-17); Calcium 9.7 mg/dl (8.4-10.2); Carbon Dioxide 32 mmol/L (22.0-30.0); Chloride 87 mmol/L (98-107); Chol/HDL Ratio 3.3 (1-3.5); Cholesterol 228 mg/dl (140-200); Estimated Glomerular Filt Rate 98 ml/min (>60); GFR (African American) 118 ML/MIN (>60); Globulin 2.4 g/dL (1.3-3.2); Glucose 116 mg/dl (74-100); HDL Cholesterol 69 mg/dl (40-60); Magnesium 1.8 mg/dl (1.6-2.3); Potassium 3.8 mmoL/L (3.5-5.1); Sodium 129 mmol/L (136-145); Total Protein,Serum 6.6 g/dl (6.3-8.2); Triglycerides 168 mg/dl (30-150); VLDL Cholesterol 34 mg/dL (0-40)
[2020-11-29 12:41] LABS: Direct LDL Cholesterol 111.66 mg/dL (100-129)
[2020-11-29 12:45] LABS: 25-OH Vitamin D, Total 51.2 ng/mL (30-100)
[2020-11-29 13:00] LABS: Thyroid Stimulating Hormone 1.21 uIU/mL (0.465-4.68)
== END ==
PROVIDERS: Visit Provider Nurse Practitioner Family
DX: R00.2 Palpitations (principal); R60.9 Edema, unspecified; I10 Essential (primary) hypertension; E03.9 Hypothyroidism, unspecified; E55.9 Vitamin D deficiency, unspecified
CPT/HCPCS: 36415; 80053; 80061; 82306; 83735; 84443; 85025; 93225; 93226

== ENCOUNTER 2021-01-29 16:46 | Emergency (ER) | payer MEDICARE, SELFPAY ==
[2021-01-29 17:00] VITALS: BP 204/98; PULSE 70; RESP 18; TEMP 36.7; O2SAT 96; BMI 24.1
--- NOTE | 2021-01-29 17:06 | XR_ITS ---
PROCEDURE INFORMATION: Exam: XR Chest Exam date and time: 01/29/2021 5:06 PM Age: 75 years old Clinical indication: Cough; Additional info: Cough for 1 month- non smoker TECHNIQUE: Imaging protocol: XR of the chest. Views: 2 views. Total images: 2 COMPARISON: CR CXR2V XR chest 2V 06/20/2018 10:22 AM FINDINGS: Lungs: Question slight hyperexpansion and hyperlucency with minimal diaphragmatic flattening suggesting possible COPD. Mild central vascular congestion. Alveolar opacities in the right mid lung and lung base concerning for multifocal pneumonia. Pleural spaces: No pleural effusion. No pneumothorax. Heart/Mediastinum: Heart size normal. No tracheal/mediastinal shift. Vasculature: Moderate aortic ectasia/tortuosity. Bones/joints: No acute osseous abnormalities are identified. Osteopenia. Moderate rightward convexity scoliosis with about 1.2 cm leftward lateral listhesis of T12 on L1 and advanced upper lumbar degenerative disc disease. IMPRESSION: 1. Right-sided alveolar opacities concerning for pneumonia. 2. Evidence of underlying COPD.
--- NOTE | 2021-01-29 17:33 | HMH.EDUTC ---
[facility] [place] Clinical Impression: COPD exacerbation Disposition: Home, Self-Care Condition on Discharge: Good Instructions: Pneumonia-Adult, Chronic Obstructive Pulmonary Disease, DI for Chronic Obstructive Pulmonary Disease, DI for Pneumonia -- Adult Additional Instructions: Drink plenty of fluids. Take tylenol or ibuprofen for pain or fever. Take the medications as directed. Make sure you follow up with Dr. Valente within the next 48 to 72 hours to be rechecked to make sure you are getting better. GO TO THE ER FOR ANY WORSENING SYMPTOMS Prescriptions: Benzonatate [Benzonatate 100mg cap] 100 mg PO TIDP PRN #30 cap PRN Reason: Cough Transmission Status: Received by [facility] predniSONE [Deltasone 10mg tablet] 10 mg PO DAILY 9 Days #21 tab Transmission Status: Received by [facility] Cefdinir [Omnicef 300mg Capsule] 300 mg PO BID #20 cap Transmission Status: [facility] Referrals: Joni Valente MD [Primary Care Provider] - Time of Disposition: 19:21 Medical Decision Making - Medical Records Medical records reviewed: No: I reviewed the patient's medical records. - Adalid Inquiry Pt receiving controlled substance: No Vital Signs: 01/29/21 17:00 01/29/21 19:24 Temperature 98.1 F 98.1 F Temperature Source Oral Pulse Rate 70 Pulse Rate [Left] 70 Respiratory Rate 18 18 Blood Pressure 0/0 L Blood Pressure [Right Arm] 204/98 H Blood Pressure Mean [Right Arm] 133 02 Sat by Pulse Oximetry 96 - Lab Data Lab Results 01/29/21 18:10: WBC 10.0, RBC 4.05 L, Hgb 12.8, Hct 39.6, MCV 97.9, MCH 31.7 H, MCHC 32.4, RDW 13.2, Plt Count 417, MPV 7.7, Neut % (Auto) 73.0, Lymph % (Auto) 17.9, Wirt % (Auto) 7.1, Eos % (Auto) 1.1, Baso % (Auto) 0.9, Neut # (Auto) 7.3, Lymph # (Auto) 1.8, Wirt # (Auto) 0.7, Eos # (Auto) 0.1, Baso # (Auto) 0.1 01/29/21 18:10: Sodium 131 L, Potassium 3.8, Chloride 90 L, Carbon Dioxide 37 H, Anion Gap 7.8, BUN 12, Creatinine 0.60, Estimated Creat Clear 45, Estimated GFR 98, Est GFR ( Amer) 118, Glucose 108 H, Calcium 9.5 Result diagrams: 01/29/21 18:10 01/29/21 18:10 Orders (Tests/Meds): ED MEDICATIONS Discontinued Medications Generic Name Dose Route Start Last Admin Trade Name Freq PRN Reason Stop Dose Admin Ceftriaxone Sodium 1 gm 01/29/21 18:58 01/29/21 19:15 Ceftriaxone 1gm Vial IM 01/29/21 18:59 1 gm ONCE ONE Administration Lidocaine HCl 0 ml 01/29/21 18:58 01/29/21 19:15 Lidocaine 1% 5ml Pf Vial IM 01/29/21 18:59 2.5 ml ONCE ONE Administration Methylprednisolone Sodium Succinate 125 mg 01/29/21 18:58 01/29/21 19:15 Methylprednisolone Sod Succ 125mg Vial IM 01/29/21 18:59 125 mg ONCE ONE Administration - Radiology Data #1 Image(s): Chest Image Reviewed: Yes I reviewed the patient's radiology image, Yes I have reviewed radiologist's interpretation Preliminary Findings: Abnormal PROCEDURE INFORMATION: Exam: XR Chest Exam date and time: 01/29/2021 5:06 PM Age: 75 years old Clinical indication: Cough; Additional info: Cough for 1 month- non smoker TECHNIQUE: Imaging protocol: XR of the chest. Views: 2 views. Total images: 2 COMPARISON: CR CXR2V XR chest 2V 06/20/2018 10:22 AM FINDINGS: Lungs: Question slight hyperexpansion and hyperlucency with minimal diaphragmatic flattening suggesting possible COPD. Mild central vascular congestion. Alveolar opacities in the right mid lung and lung base concerning for multifocal pneumonia. Pleural spaces: No pleural effusion. No pneumothorax. Heart/Mediastinum: Heart size normal. No tracheal/mediastinal shift. Vasculature: Moderate aortic ectasia/tortuosity. Bones/joints: No acute osseous abnormalities are identified. Osteopenia. Moderate rightward convexity scoliosis with about 1.2 cm leftward lateral listhesis of T12 on L1 and advanced upper lumbar degenerative disc disease.
[2021-01-29 18:28] LABS: Basophils # 0.1 K/mm3 (0-0.2); Basophils % 0.9 % (0.1-2.0); Eosinophils # 0.1 K/mm3 (0.0-0.4); Eosinophils % 1.1 % (0.1-12.0); Hematocrit 39.6 % (37.0-47.0); Hemoglobin 12.8 g/dL (12.2-16.2); Lymphocytes # 1.8 K/mm3 (0.7-4.5); Lymphocytes % 17.9 % (10-50); Mean Corpuscular HGB Conc 32.4 g/dL (31.8-35.4); Mean Corpuscular Hemoglobin 31.7 pg (27.0-31.2); Mean Corpuscular Volume 97.9 fl (81-99); Mean Platelet Volume 7.7 fl (7.4-10.4); Monocytes # 0.7 K/mm3 (0.1-1.0); Monocytes % 7.1 % (1.7-9.3); Neutrophils # 7.3 K/mm3 (1.8-7.8); Platelet Count 417 K/mm3 (142-424); Red Blood Count 4.05 M/mm3 (4.20-5.40); Red Cell Distribution Width 13.2 % (11.5-17.5)
[2021-01-29 18:37] LABS: Anion Gap 7.8 mEq/L (5-15); Blood Urea Nitrogen 12 mg/dl (7-17); Calcium 9.5 mg/dl (8.4-10.2); Carbon Dioxide 37 mmol/L (22.0-30.0); Chloride 90 mmol/L (98-107); Creatinine Clearance Estimated 45 mL/min (50-200); Estimated Glomerular Filt Rate 98 ml/min (>60); GFR (African American) 118 ML/MIN (>60); Glucose 108 mg/dl (74-100); Potassium 3.8 mmoL/L (3.5-5.1); Sodium 131 mmol/L (136-145)
[2021-01-29 19:24] VITALS: BP 0/0; PULSE 70; RESP 18; TEMP 36.7
== END 2021-01-29 19:30 | disposition home or self-care (01) ==
PROVIDERS: Emergency Provider Nurse Practitioner Family; PCP Internal Medicine Adolescent Medicine
DX: J44.1 Chronic obstructive pulmonary disease with (acute) exacerbation (principal); F41.9 Anxiety disorder, unspecified; I10 Essential (primary) hypertension; E03.9 Hypothyroidism, unspecified; F17.210 Nicotine dependence, cigarettes, uncomplicated
CPT/HCPCS: G0463; 71046; 80048; 85025; 99202; C9803; U0003; U0005

== ENCOUNTER → 2021-02-16 17:30 | Outpatient (CLI) | payer MEDICARE, SELFPAY ==
[2021-02-16 18:10] LABS: Basophils # 0.1 K/mm3 (0-0.2); Eosinophils # 0.2 K/mm3 (0.0-0.4); Eosinophils % 2.5 % (0.1-12.0); Hematocrit 41.3 % (37.0-47.0); Hemoglobin 13.8 g/dL (12.2-16.2); Lymphocytes # 2.4 K/mm3 (0.7-4.5); Mean Corpuscular HGB Conc 33.4 g/dL (31.8-35.4); Mean Corpuscular Hemoglobin 32.5 pg (27.0-31.2); Mean Corpuscular Volume 97.2 fl (81-99); Mean Platelet Volume 7.8 fl (7.4-10.4); Monocytes # 0.6 K/mm3 (0.1-1.0); Monocytes % 9.1 % (1.7-9.3); Neutrophils # 3.8 K/mm3 (1.8-7.8); Neutrophils % 53.5 % (37.0-80.0); Platelet Count 314 K/mm3 (142-424); Red Blood Count 4.24 M/mm3 (4.20-5.40); White Blood Count 7.1 K/mm3 (4.8-10.8)
[2021-02-16 18:41] LABS: Anion Gap 7.9 mEq/L (5-15); Blood Urea Nitrogen 16 mg/dl (7-17); Calcium 9.9 mg/dl (8.4-10.2); Carbon Dioxide 35 mmol/L (22.0-30.0); Chloride 91 mmol/L (98-107); Estimated Glomerular Filt Rate 98 ml/min (>60); GFR (African American) 118 ML/MIN (>60); Glucose 101 mg/dl (74-100); Potassium 3.9 mmoL/L (3.5-5.1); Sodium 130 mmol/L (136-145)
[2021-02-16 18:50] LABS: NT Pro Brain Natriuretic Pep. 969 pg/mL (0-125)
[2021-02-16 19:12] LABS: Thyroid Stimulating Hormone 1.46 uIU/mL (0.465-4.68)
== END ==
PROVIDERS: Visit Provider Nurse Practitioner Family
DX: E03.9 Hypothyroidism, unspecified (principal); R60.9 Edema, unspecified; R06.09 Other forms of dyspnea
CPT/HCPCS: 36415; 80048; 83735; 83880; 84443; 85025

== ENCOUNTER → 2021-02-21 14:13 | Outpatient (CLI) | payer MEDICARE, SELFPAY ==
--- NOTE | 2021-02-21 | CA_ITS ---
APPROVED REPORT EXAM: Comprehensive 2D, Doppler, and color-flow Echocardiogram Convention Worker: Tiffany Stanford RT(R) Ht: 5 ft 1 in Wt: 135lbs BSA: 1.60 BP: 204/98 mmHg Indications: COPD, Smoker, edema, HTN, SOB, Elevated BNP, recent pneumonia 2D Dimensions LVOT 1.89 cm (M/F) 1.5-2.5 LVEF (Garay's) 59.20 % F: 54 - 74 LV Volume 90.90 mL F: 46 - 106 LV Volume Index 57.16 mL/m2 F: 29 - 61 LA Volume 36.70 mL LA Volume Index 23.08 mL/m2 (M/F) 16-34 M-Mode Dimensions RVDd 2.48 cm (0.9-2.6) LA Diam 3.43 cm (1.9-4.0) LVDd 3.99 cm (3.5-5.7) Ao Diam 2.52 cm (2.0-3.7) LVDs 3.15 cm (3.5-5.7) IVSd 0.84 cm (0.6-1.1) PWd 0.67 cm (0.6-1.1) EF (Teich) 43.40% FS 21.10% EDV (Teich) 69.60 mL ESV (Teich) 39.40 mL LV Diastology E Decel Time 207.00 (160-240 msec) E/A Ratio 0.6 MED E' 6.90 (< 7 cm/sec) E'/MED E' Ratio 7.88 (>14) LAT E' 7.80 (<10 cm/sec) E/LAT E' Ratio 6.97 (>14) Mitral Valve MV E Max Davin. 54.00 (40-130 cm/s) MV A Velocity 88.00 (40-130 cm/s) E/A Ratio 0.62 MV Decel. Time 207.00 (160-240 ms) MV PHT 61.00 ms Left Ventricle Left atrium is mildly enlarged, left ventricle is normal size, mild concentric left ventricular hypertrophy, visually estimated ejection fraction 55% with no regional wall motion abnormality, grade 1 diastolic dysfunction seen without tissue Doppler evidence of raise left atrial pressure. Right Ventricle Right atrium and right ventricle are normal size and contractility. Aortic Valve Aortic valve is minimally thickened and fibrosed, there is no aortic stenosis or aortic insufficiency. Mitral Valve Mitral valve is grossly normal, there is trace mitral regurgitation. Tricuspid Valve Tricuspid valve grossly normal, there is trace tricuspid regurgitation, tricuspid regurgitation jet velocity is inadequate for calculation of the right ventricular systolic pressure. Pulmonic Valve Pulmonic valve is poorly visualized. Great Vessels Aortic root is normal size. Inferior vena cava is normal size with normal inspiratory collapse. Pericardium No significant pericardial effusion noted. Conclusion 1. Left atrium is mildly enlarged, left ventricle is normal size, mild concentric left ventricular hypertrophy, visually estimated ejection fraction 55% with no regional wall motion abnormality, grade 1 diastolic dysfunction seen without tissue Doppler evidence of raise left atrial pressure. 2. Trace mitral and tricuspid regurgitation. 3. No significant pericardial effusion noted. 4. Inferior vena cava normal size with normal inspiratory collapse. Electronically signed by : Karl Hamlin MD 02/21/2021 20:12:58
== END ==
PROVIDERS: PCP Internal Medicine Adolescent Medicine; Visit Provider Nurse Practitioner Family
DX: R60.0 Localized edema (principal); R06.02 Shortness of breath; R79.89 Other specified abnormal findings of blood chemistry
CPT/HCPCS: 93306

== ENCOUNTER → 2021-06-10 16:57 | Outpatient (CLI) | payer MEDICARE, SELFPAY ==
[2021-06-10 18:02] LABS: Anion Gap 9.2 mEq/L (5-15); Blood Urea Nitrogen 14 mg/dl (7-17); Calcium 9.3 mg/dl (8.4-10.2); Carbon Dioxide 36 mmol/L (22.0-30.0); Chloride 91 mmol/L (98-107); Estimated Glomerular Filt Rate 120 ml/min (>60); GFR (African American) 146 ML/MIN (>60); Glucose 104 mg/dl (74-100); Potassium 4.2 mmoL/L (3.5-5.1); Sodium 132 mmol/L (136-145)
== END ==
PROVIDERS: PCP Nurse Practitioner Family; Visit Provider Internal Medicine Adolescent Medicine
DX: R60.9 Edema, unspecified (principal)
CPT/HCPCS: 36415; 80048

== ENCOUNTER → 2021-06-21 09:53 | Outpatient (POV) | payer MEDICARE, SELFPAY ==
[2021-06-21 10:26] VITALS: BP 152/92; PULSE 58; RESP 18; TEMP 36.1; O2SAT 98; BMI 24.1
--- NOTE | 2021-06-21 11:10 | P.CONS_ITS ---
[facility] Pain Management SOAP Note Subjective:: Patient is very pleasant 75-year-old female that comes our clinic today for follow-up visit regarding bilateral lumbar back pain. She has extreme point tenderness over the bilateral SI joints. Patient has had SI joint injections in the past with significant improvement. Also, bilateral trochanteric bursa injections as well. Patient has been on her feet quite a bit lately and states her lumbar back pain is worse than normal. She rates the pain 7/10. I discussed in detail with the patient regarding bilateral SI joint injections. She wishes to proceed. Patient states pain increases when standing for any length of time. Pain increases when sitting for any length of time. Objective:: Patient is awake alert oriented x3. No acute distress. Flexion-extension lumbar spine somewhat guarded secondary to pain. Deep tendon reflexes upper and lower extremities normal. Motor strength upper and lower extremities normal. There is no gross sensory deficit. Gait is normal. Assessment:: Degenerative disc disease lumbar spine multilevels. Bilateral sacroiliitis. Plan:: I suggest bilateral SI joint injections. Patient is to proceed. We will get this scheduled for her. [facility] History Medical History: Reports:: Anxiety, Arrhythmia, Chronic Obstructive Pulmonary Disease (COPD), Hypertension Denies:: Cancer, Diabetes Mellitus Type 1, Diabetes Mellitus Type 2, Internal Pacemaker, MRSA, Seizures *Have you ever received a pneumonia vaccine?: No *Have you received a flu vaccine this season?: No Other Medical History: Reports: Hypothyroidism, Thyroid Disease. Denies: Blood Transfusion Reaction Laterality Cases: Bilateral: Total Hip Replacement Other Surgeries: Yes: Cholecystectomy, Thyroidectomy. No: Pacemaker Amputation: No Fractures: No - *Social History Smoking Status: Current every day smoker Tobacco Type: cigarettes # Packs/Day (cigarettes): 1 Alcohol Intake: never Substance Use Type: denies use *Occupational Status:: retired Housing: house Household Members: spouse *Travel in the last 8 weeks: None - Psychiatric History Pschychiatric History:: Reports:: Anxiety Family Hx:: No significant family history
== END ==
PROVIDERS: Visit Provider Nurse Anesthetist, Certified Registered
DX: M51.36 Other intervertebral disc degeneration, lumbar region (principal); M46.1 Sacroiliitis, not elsewhere classified
CPT/HCPCS: 99212; G0463

== ENCOUNTER 2021-07-08 11:27 | Day surgery (SDC) | payer MEDICARE, SELFPAY ==
[2021-07-08 11:34] VITALS: BP 178/98; PULSE 63; RESP 20; TEMP 36.4; O2SAT 98; BMI 24.1
[2021-07-08 12:06] VITALS: BP 192/110; PULSE 68; RESP 18; O2SAT 98
[2021-07-08 12:07] VITALS: BP 192/110; PULSE 82; RESP 18; O2SAT 98
[2021-07-08 12:15] VITALS: BP 175/99; PULSE 62; RESP 20; TEMP 36.3; O2SAT 98
--- NOTE | 2021-07-08 12:16 | HMH.PMPROC ---
- Procedure Date: 07/08/21 Time: 12:16 Anesthesiologist:: Mike Lopez MD Complications:: None Pre-procedure Diagnosis:: Sacroiliitis Post-procedure Diagnosis:: Same Indications for Procedure:: The patient is a pleasant 76-year-old white female who we are treating for bilateral sacroiliitis. She is tender over both SI joints. She has positive Cyndi's test bilaterally. She is positive Niko test bilaterally. She is positive SI joint compression test bilaterally. We will plan on bilateral SI joint injections under fluoroscopy today to help her with her pain symptoms. Procedure Details:: B/L SI joint injection under fluoroscopy Informed consent was obtained and the risks and benefits of the procedure was explained to the patient. The patient was taken to the procedure room and placed prone on the procedure table. The patient was prepped using ChloraPrep. The skin and subcutaneous tissues overlying the SI joints were anesthetized using lidocaine. I placed a 22-gauge needle first in the left SI joint and second in the right SI joint. Needle placement was confirmed with dye. After this we injected 5 mL bupivacaine 0.25% and Depo-Medrol 40 mg into each SI joint. Patient tolerated the procedure well with no complication. Plan and Disposition:: We will follow-up with her in 2 weeks. Will reevaluate symptoms at that time.
== END 2021-07-08 12:16 | disposition home or self-care (01) ==
LOC: SC.PAINP 11:28
PROVIDERS: PCP Nurse Practitioner Family; Visit Provider Anesthesiology
DX: M46.1 Sacroiliitis, not elsewhere classified (principal); F41.9 Anxiety disorder, unspecified; J44.9 Chronic obstructive pulmonary disease, unspecified; I10 Essential (primary) hypertension; I49.9 Cardiac arrhythmia, unspecified; E78.5 Hyperlipidemia, unspecified; E89.0 Postprocedural hypothyroidism; F32.A Depression, unspecified; Z90.49 Acquired absence of other specified parts of digestive tract; Z72.0 Tobacco use; Z88.8 Allergy status to other drugs, medicaments and biological substances; Z88.1 Allergy status to other antibiotic agents; Z91.040 Latex allergy status
CPT/HCPCS: 27096; G0260; J1030; Q9966

== ENCOUNTER 2021-07-22 11:54 | Day surgery (SDC) | payer MEDICARE, SELFPAY ==
[2021-07-22 12:05] VITALS: BP 134/101; PULSE 39; RESP 20; TEMP 36.6; O2SAT 99; BMI 22.6
--- NOTE | 2021-07-22 12:06 | P.PCN_ITS ---
- Procedure Date: 07/22/21 Time: 12:07 Anesthesiologist:: Alfredo Nice CRNA Complications:: None Pre-procedure Diagnosis:: Left trochanteric bursitis Post-procedure Diagnosis:: Same Indications for Procedure:: Patient is a pleasant 76-year-old female that presents to our injection clinic today for left trochanteric bursa injection. Patient has extreme point tenderness over the left trochanteric bursa area. Procedure Details:: Procedure:Left trochanteric bursa injection under fluoroscopy We then moved to the left trochanteric bursa.~ C-arm fluoroscopy was used to view the left greater trochanter.~ The skin and subcutaneous tissues overlying the left greater trochanter were anesthetized using lidocaine, 1.5% and a 25- gauge needle.~ After this, a 22-gauge spinal needle was inserted and advanced until it contacted the left greater trochanter.~ Dye was injected and good spread was seen throughout the left trochanteric bursa. After this, approximatel y 5 mL of bupivacaine, 0.25% and Depo-Medrol, 40 mg was incrementally injected into the left trochanteric bursa.~ The patient tolerated the procedure well with no complications. Plan and Disposition:: Patient was discharged without incident.
[2021-07-22 12:14] VITALS: BP 135/104; PULSE 45; RESP 18; O2SAT 99
[2021-07-22 12:16] VITALS: BP 135/104; PULSE 45; RESP 18; O2SAT 99
[2021-07-22 12:32] VITALS: BP 174/78; PULSE 64; RESP 20; O2SAT 98
== END 2021-07-22 12:33 | disposition home or self-care (01) ==
LOC: SC.PAINP 11:55
PROVIDERS: PCP Nurse Practitioner Family; Visit Provider Nurse Anesthetist, Certified Registered
DX: M70.62 Trochanteric bursitis, left hip (principal); I10 Essential (primary) hypertension; F41.9 Anxiety disorder, unspecified; F32.A Depression, unspecified; Z72.0 Tobacco use; J44.9 Chronic obstructive pulmonary disease, unspecified; Z88.8 Allergy status to other drugs, medicaments and biological substances; Z88.1 Allergy status to other antibiotic agents; Z91.040 Latex allergy status
CPT/HCPCS: 20610; 77002; J1040

== ENCOUNTER → 2021-08-02 11:45 | Outpatient (POV) | payer MEDICARE, SELFPAY ==
[2021-08-02 11:58] VITALS: BP 178/101; PULSE 62; RESP 18; TEMP 36.3; O2SAT 97; BMI 22.6
--- NOTE | 2021-08-02 13:09 | HMH.PAINSOAP ---
[facility] Pain Management SOAP Note Subjective:: Patient is a pleasant 86-year-old female came to our clinic today for a follow-up after receiving bilateral SI joint injections. She is reporting 50 to 70% improvement terms of her lumbar back pain and bilateral posterior hip pain. The injections were done on 07/08/2021. Patient continues to be doing much better. Patient describing some left lateral hip numbness which is now a chronic issue after having left hip replaced. Patient states feeling has not returned to that area covering the incision. Otherwise patient seems to be doing very well. Patient's Adalid [id number] is been reviewed and appropriate. Objective:: Patient is awake alert oriented x3. In no acute distress. Flexion-extension lumbar spine somewhat guarded secondary to pain. Deep tendon reflexes upper lower extremities normal. Motor strength upper and lower extremities normal. There is no gross sensory deficit. Gait is normal. Patient has small open wound on the left lower lateral leg. She is point to wound therapy for treatment. Assessment:: Bilateral sacroiliitis. Degenerative disc disease lumbar spine. Left multilevels. Plan:: Patient return to see us in 2 months. She is doing quite well since having bilateral SI joint injections. [facility] History Medical History: Reports:: Anxiety, Arrhythmia, Chronic Obstructive Pulmonary Disease (COPD), Hyperlipidemia, Hypertension Denies:: Cancer, Diabetes Mellitus Type 1, Diabetes Mellitus Type 2, Internal Pacemaker, MRSA, Seizures *Have you ever received a pneumonia vaccine?: Yes *Have you received a flu vaccine this season?: No Other Medical History: Reports: Arthritis, Hypothyroidism, Thyroid Disease. Denies: Blood Transfusion Reaction Laterality Cases: Bilateral: Total Hip Replacement Other Surgeries: Yes: Cholecystectomy, Open Heart Surgery, Thyroidectomy. No: Pacemaker Amputation: No Fractures: No - *Social History Smoking Status: Current every day smoker Tobacco Type: cigarettes # Packs/Day (cigarettes): 1 Alcohol Intake: never Substance Use Type: denies use *Occupational Status:: retired Housing: house Household Members: spouse *Travel in the last 8 weeks: None - Psychiatric History Pschychiatric History:: Reports:: Anxiety Family Hx:: No significant family history
== END ==
PROVIDERS: Visit Provider Nurse Anesthetist, Certified Registered
DX: M46.1 Sacroiliitis, not elsewhere classified (principal); M51.36 Other intervertebral disc degeneration, lumbar region
CPT/HCPCS: 99212; G0463

== ENCOUNTER 2021-09-14 14:00 | Outpatient (RCR) | payer MEDICARE, SELFPAY ==
--- NOTE | 2021-07-20 10:43 | HMH.PTOPWND ---
Rehab Outpt Wound Evaluation Rehab OP Wound Evaluation Start: 07/20/21 09:09 Freq: Status: Active Protocol: Document 07/20/21 10:32 STEFANO (Rec: 07/20/21 10:43 PHOMALLORY [id number]) Electronically Signed By Sebastien Womack, PT 07/20/21 10:32 Subjective/History History History Pt is 76 yowf who presents with c/o L anterior mcdaniels wound x ~ 6 wks with slow healing. She reports, I bumped my leg on a chair and it just hasn't healed. 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 She reports PMH of HTN, SVT, hypothyroid, anxiety, depression. Subjective Subjective Pt c/o pain in the eliecer-wound area, 5/10. Pt reports significant tenderness to palpation, 3/4 with light touch to eliecer-wound skin. Wound Eval Wound Left Anterior Mcdaniels Wound Type Skin Tear Is This a Chronic Wound Yes Wound Length (cm) 2.5 Wound Width (cm) 2.0 Wound Depth (cm) 0.2 Wound Bed Appearance Beefy Red,[place],Yellow,Eschar Percentage Granulated (%) 30 Percentage of Eschar (Yellow) (%) 70 Wound Margins Description Well Defined Surrounding Tissue Appearance [place] Edema Type Non-Pitting Edema Degree 1+ Query Text:1+ Trace, Barely Detectable, Rebound 15-30 seconds 2+ Moderate, Slight Indentation, Rebound 10-20 seconds 3+ Deep, Deeper Indentation, Rebound > 30 seconds 4+ Very Deep, Rebound > 60 seconds Edema Appearance Puffy Drainage Description Serosanguineous Drainage Amount Scant Wound Topical Solution/Irrigant Saline Irrigant Primary Dressing Composite Comment therahoney gel, optifoam gentle border lite. Wound Debridement Method Sharps,Forceps,Gauze Wound Debridement Amount of Tissue Minimal Removed Dressing Change Patient Tolerance Tolerated Poorly Wound Problems/Impairments Impairments Problems/Impairmments Palpation Tenderness,Impaired Walking,Impaired Standing, Impaired Recreational Activities,I
--- NOTE | 2021-08-15 10:28 | HMH.RHREAS ---
Rehab Reassessment Rehab OP Re-assessment Start: 08/15/21 10:21 Freq: Status: Active Protocol: Document 08/15/21 10:22 STEFANO (Rec: 08/15/21 10:27 STEFANO [id number]) Electronically Signed By Sebastien Womack, PT 08/15/21 10:22 Rehab Re-assessment Subjective Subjective PT reports much less pain overall, but she remains anxious about her B LE edema and healing of her wound. Objective Objective Notes L lateral anterior mcdaniels wound: L= 1.7 cm, W= 1.0 cm, D= 0.0 cm. Assessment Progress Assessment Progressing as Expected Assessment Notes Pt has shown significant change in status with >50% of wound area decrease at this point. She has no depth to her wound at this time and almost complete granulation tissue in the wound bed. B LE edema remains consistent. Patient goals met ST,2,3 Goals Not Met LT,2,3,4,5 Revised Goals none Plan Plan Continue per initial POC. Pt would benefit from lyphedema compression pump moving forward due to chronic B LE edema. Frequency of Therapy 1-2 x/wk Duration of therapy 4 wks Time and Billing Re-Eval Time 16 Re-Eval Billing Units 1 PHYSICIAN CERTIFICATION: I certify the specified therapy services for Cindy Braxton are required, authorized, and reviewed every 30 days.
== END 2021-09-14 14:05 | disposition home or self-care (01) ==
LOC: PT 14:00
PROVIDERS: PCP Nurse Practitioner Family; Visit Provider Nurse Practitioner Family
DX: S81.802D Unspecified open wound, left lower leg, subsequent encounter (principal); L97.221 Non-pressure chronic ulcer of left calf limited to breakdown of skin
CPT/HCPCS: 97140; 97162; 97164; 97597

== ENCOUNTER → 2021-09-29 11:01 | Outpatient (POV) | payer MEDICARE, SELFPAY ==
[2021-09-29 11:09] VITALS: BP 164/92; PULSE 61; RESP 20; O2SAT 97; BMI 22.6
--- NOTE | 2021-09-29 13:02 | HMH.PAINSOAP ---
[facility] Pain Management SOAP Note Subjective:: Patient is a pleasant 76-year-old female who comes to our clinic today for follow-up. We are currently treating the patient for degenerative disc disease of lumbar spine, left multilevels, bilateral sacroiliitis. Today she rates her pain a 8 out of 10. She states the pain is in her low back that goes down to her left hip and down her left leg stops at her knee. She states this is a aching, throbbing, occasional numb sensation that is worse with activity. She states she feels her legs are weak and she cannot sleep on her left side due to the pain. She states that she feels like her pain has increased over the last several months which has led to a decrease in her independence at home doing activities. She states she has been having to rely on her children more frequently. Patient denies any new trauma or injury to the area. She denies any new change to the location or the type of pain. We have done injective therapy in the past for this patient. She states that she has had 1 injection per year for the last 3 years. She states her last injection the SI and hip did provide about 50% improvement but this only lasted for 2 to 3 days. Patient states she has had physical therapy a couple years ago with minimal relief. She has tried at home exercise and strength training with minimal relief. She has also tried topical application of icy hot and Biofreeze with minimal relief. She states she takes 2 Tylenol and up ibuprofen multiple times throughout the day to help manage this pain. She states the Mobic gives her no relief. Her Adalid is [id number]. It has been reviewed and appropriate. Review of Systems: General: No recent weight changes, no fever, no sleep disturbances Respiratory: No cough, no shortness of air, no recurring pulmonary infections Cardiovascular/peripheral vascular: No chest pain, no palpitations, no edema, no shortness of breath Gastrointestinal: No new onset incontinence, normal bowel movements reported Genitourinary: No new onset incontinence Musculoskeletal: Back pain, left leg pain, left hip pain Psychiatric: [Normal mood/affect] Neurological: [Denies weakness in extremities], [denies balance issues] Objective:: Physical Exam: General: Alert and oriented x3, no acute distress, pleasant and cooperative Lungs: Respirations even and unlabored, symmetrical chest expansion Eyes: PERRL Musculoskeletal: Flexion and extension of lumbar [spine] somewhat guarded secondary to pain, [antalgic gait noted] Neurological: Speech clear, no gross sensory deficit Assessment:: Degenerative disc disease of lumbar spine, left multilevels bilateral sacroiliitis Plan:: Patient is still currently experiencing significant pain in her low back that radiates to her left hip and down to her knee. Patient did receive Left SI and hip injection that provided 50% relief that lasted 2 to 3 days. I have discussed with the patient regarding having a repeat SI and hip injection. Risk and benefits of this procedure were discussed with the patient and her daughter. They would like to proceed forward with these injections. I have counseled the patient regarding having more frequent injections to provide better relief. I have also discussed with the patient regarding possible SI stabilization, as well as long-term therapy in the future such as a stimulator. Educational handouts were given to the patient at today's visit we will start the patient on compounding cream. We will schedule the patient for repeat left SI and left greater trochanteric bursa injections at today's visit. Patient has been instructed to contact the clinic with any concerns before the next appointment. Dr. Lopez has reviewed this note and agrees with this plan of care. This note was dictated using voice recognition software and make contain errors or omissions. [facility] History I have reviewed the patient's past medical history: Yes Medical History: Darlyn
== END ==
PROVIDERS: Visit Provider Student in an Organized Health Care Education/Training Program
DX: M51.36 Other intervertebral disc degeneration, lumbar region (principal); M46.1 Sacroiliitis, not elsewhere classified
CPT/HCPCS: 99212; G0463

== ENCOUNTER 2021-10-04 12:41 | Day surgery (SDC) | payer MEDICARE, SELFPAY ==
[2021-10-04 12:59] VITALS: BP 177/96; BP 190/91; PULSE 66; PULSE 70; RESP 18; RESP 20; TEMP 36.5; O2SAT 94; BMI 23.0
[2021-10-04 13:23] VITALS: BP 187/82; PULSE 63; RESP 18; O2SAT 96
--- NOTE | 2021-10-04 13:33 | HMH.PMPROC ---
- Procedure Date: 10/04/21 Time: 13:33 Anesthesiologist:: Alfredo Nice CRNA Complications:: None Pre-procedure Diagnosis:: Left sacroiliitis. Left trochanteric bursitis. Post-procedure Diagnosis:: Same Indications for Procedure:: This patient is a pleasant 76-year-old female whose been a patient of ours for quite some time. Today she presents to the injection clinic for left SI joint injection as well as left trochanteric bursa injection. Upon examination he has extreme point tenderness over the left SI joint as well as the left trochanteric bursa. Patient has had both of the sites injected in the past with a couple of weeks of relief. Today she complains the pain is sharp, stabbing in both locations. She rates the pain 8/10. Procedure Details:: Procedure: Left sacroiliac injection under fluoroscopy Informed consent was obtained and the risk and benefits of the procedure were explained to the patient.~ The patient was taken to the procedure room and noninvasive monitors were placed including noninvasive blood pressure cuff and pulse oximeter.~ The patient was placed prone on the procedure table.~ The~ left hip was cleansed using Betadine as a cleansing solution.~ C-arm fluorosocpy was used to view the left SI joint.~ The skin and subcutaneous tissues were anesthetized using Lidocaine 1.5% and a 25-gauge needle.~ After this, a 22-gauge spinal needle was inserted under fluoroscopic guidance into the inferior aspect of the left SI joint.~ Omnipaque dye was injected and a good spread was seen throughout the joint.~ After this, approximately 5 mL of bupivacaine 0.25% and Depo-Medrol 40 mg was incrementally injected into the sacroiliac joint.~ The patient tolerated the procedure well with no complications.~ The patient was observed in the Pain Clinic for a period of 30-45 minutes, then discharged home neurologically intact.~ Procedure:Left trochanteric bursa injection under fluoroscopy We then moved to the left trochanteric bursa.~ C-arm fluoroscopy was used to view the left greater trochanter.~ The skin and subcutaneous tissues overlying the left greater trochanter were anesthetized using lidocaine, 1.5% and a 25-gauge needle.~ After this, a 22-gauge spinal needle was inserted and advanced until it contacted the left greater trochanter.~ Dye was injected and good spread was seen throughout the left trochanteric bursa. After this, approximately 5 mL of bupivacaine, 0.25% and Depo-Medrol, 40 mg was incrementally injected into the left trochanteric bursa.~ The patient tolerated the procedure well with no complications. Plan and Disposition:: Patient was reevaluated 10 minutes post procedure. She reports 80 to 90% improvement in both sites. Patient reports less pain when ambulating and sitting. Patient discussed with me regarding previous medial branch block lumbar spine. She reports 1 week of significant improvement terms of her low back pain. Patient will follow-up with us in 2 weeks.
== END 2021-10-04 13:24 | disposition home or self-care (01) ==
LOC: SC.PAINP 12:42
PROVIDERS: PCP Nurse Practitioner Family; Visit Provider Nurse Anesthetist, Certified Registered
DX: M46.1 Sacroiliitis, not elsewhere classified (principal); M53.3 Sacrococcygeal disorders, not elsewhere classified; M70.62 Trochanteric bursitis, left hip
CPT/HCPCS: 20610; 27096; 77002; G0260; J1040

== ENCOUNTER → 2021-10-17 13:10 | Outpatient (POV) | payer MEDICARE, SELFPAY ==
[2021-10-17 13:20] VITALS: BP 137/79; PULSE 70; RESP 20; BMI 23.0
--- NOTE | 2021-10-17 14:13 | HMH.PAINSOAP ---
[facility] Pain Management SOAP Note Subjective:: Patient is a pleasant 76-year-old female who presents today for follow-up of a left sacral iliac injection and left trochanteric bursa on 10/04/2021. We are currently treating the patient for left sacroiliitis and left trochanteric bursitis. Patient states she has had moderate relief from this injection. She states about 60% improvement. Patient rates her pain a 4 out of 10 today. She states she does still have numbness in her left hip that radiates down her leg to her knee. She states she has had this since about 2 weeks after her hip surgery about 7 years ago. She was currently seeing physical therapy and it was during 1 therapy session that this started. Patient states she takes 2 Tylenol with an ibuprofen every day with some relief. States she did just get her compounding cream mailed to her and she has not started it yet. Patient denies any new trauma or injury. She denies any change to the location or type of pain she experiences. her Adalid is [id number]. It has been reviewed and appropriate. Review of Systems: General: No recent weight changes, no fever, no sleep disturbances Respiratory: No cough, no shortness of air, no recurring pulmonary infections Cardiovascular/peripheral vascular: No chest pain, no palpitations, no edema, no shortness of breath Gastrointestinal: No new onset incontinence, normal bowel movements reported Genitourinary: No new onset incontinence Musculoskeletal: [Left hip pain, left leg pain/numbness] Psychiatric: [Normal mood/affect] Neurological: [Denies weakness in extremities], [denies balance issues] Objective:: Physical Exam: General: Alert and oriented x3, no acute distress, pleasant and cooperative Lungs: Respirations even and unlabored, symmetrical chest expansion Eyes: PERRL Musculoskeletal: Flexion and extension of lumbar [spine] somewhat guarded secondary to pain, [antalgic gait noted] Neurological: Speech clear, no gross sensory deficit Assessment:: Left sacroiliitis, left trochanteric bursitis Plan:: Patient has had 60% improvement from her left SI and left trochanteric bursa injections. I have discussed with the patient regarding trying diclofenac 75 mg twice daily. The patient was counseled on taking medication with food to decrease stomach upset and discontinuing any other NSAIDs while trying this medication. I will order diclofenac 75 mg twice a day and give a 14-day supply. Patient will follow-up in 2 weeks. I have also discussed with the patient regarding having repeat injections if her symptoms worsen. Patient will return to clinic in 2 weeks for follow-up and reevaluation of symptoms. Patient has been instructed to contact the clinic with any concerns before the next appointment. Dr. Lopez has reviewed this note and agrees with this plan of care. This note was dictated using voice recognition software and make contain errors or omissions. [facility] History I have reviewed the patient's past medical history: Yes Medical History: Reports:: Anxiety, Arrhythmia, Chronic Obstructive Pulmonary Disease (COPD), Hyperlipidemia, Hypertension Denies:: Cancer, Diabetes Mellitus Type 1, Diabetes Mellitus Type 2, Internal Pacemaker, MRSA, Seizures *Have you ever received a pneumonia vaccine?: Yes *Have you received a flu vaccine this season?: No Other Medical History: Reports: Arthritis, Hypothyroidism, Thyroid Disease. Denies: Blood Transfusion Reaction Laterality Cases: Bilateral: Total Hip Replacement Other Surgeries: Yes: Cholecystectomy, Open Heart Surgery, Thyroidectomy. No: Pacemaker Amputation: No Fractures: No - *Social History Smoking Status: Current every day smoker Tobacco Type: cigarettes # Packs/Day (cigarettes): 1 Alcohol Intake: never Substance Use Type: denies use *Occupational Status:: retired Housing: house Household Members: spouse *Travel in the last 8 weeks: None - Psychiatric History Pschychiatric History:: Reports:: Anxiety
== END ==
PROVIDERS: PCP Nurse Practitioner Family; Visit Provider Nurse Practitioner Family
DX: M46.1 Sacroiliitis, not elsewhere classified (principal); M70.62 Trochanteric bursitis, left hip
CPT/HCPCS: 99212; G0463

== ENCOUNTER → 2021-10-31 13:26 | Outpatient (POV) | payer MEDICARE, SELFPAY ==
[2021-10-31 13:46] VITALS: BP 159/81; PULSE 95; RESP 20; TEMP 36.7; O2SAT 98; BMI 30.5
--- NOTE | 2021-10-31 14:06 | HMH.PAINSOAP ---
[facility] Pain Management SOAP Note Subjective:: Patient is a pleasant 76-year-old female that presents today for follow-up. We are currently treating the patient for left sacroiliitis and left trochanteric bursitis. Today she rates her pain a 7 out of 10 and states it is all in her low back with more pain on her left side. We have done injective therapy in the past that has provided significant improvement of her symptoms however none of these have given long-term relief. Patient states that she is having anxiety regarding the fact that she feels like she is still hurting just the same as when she started coming to our office. Patient has a history of bilateral hip surgery. She is also seen physical therapy in the past with some improvement of her symptoms. She does take [id number] Tylenol as needed for her pain. She states that her compounding cream does help her pain however it is about the same as her Biofreeze. Patient has been taking diclofenac 75 mg twice a day for the last 2 weeks. She denies any side effects to this medication. She states she has not noticed a significant difference as of right now. She is requesting a 3-month refill due to her Medicare advantage health insurance. Her Adalid is [id number]. Its been reviewed and appropriate. Review of Systems: General: No recent weight changes, no fever, no sleep disturbances Respiratory: No cough, no shortness of air, no recurring pulmonary infections Cardiovascular/peripheral vascular: No chest pain, no palpitations, no edema, no shortness of breath Gastrointestinal: No new onset incontinence, normal bowel movements reported Genitourinary: No new onset incontinence Musculoskeletal: Low back pain Psychiatric: [Normal mood/affect] Neurological: [Denies weakness in extremities], [denies balance issues] Objective:: Physical Exam: General: Alert and oriented x3, no acute distress, pleasant and cooperative Lungs: Respirations even and unlabored, symmetrical chest expansion Eyes: PERRL Musculoskeletal: Flexion and extension of lumbar [spine] somewhat guarded secondary to pain, [antalgic gait noted] Neurological: Speech clear, no gross sensory deficit Assessment:: Left sacroiliitis, left trochanteric bursitis, low back pain Plan:: Patient continues to have low back pain primarily on her left side. I have discussed with the patient regarding doing a SI stabilization procedure for more long-term results. Patient was given educational handouts on corner lock at a previous visit. At this time the patient is unsure of how much relief she is getting with these injections and would like to wait at this time. I have also discussed with the patient that she may benefit from trying physical therapy again. She did have a good experience with [facility] in the past. I I will refill the patient's diclofenac 75 mg twice a day. Patient denies any side effects with this medication states she has no cardiac history or kidney issues. I will prescribe her a 90-day refill on this due to the fact it is cheaper through her insurance. Patient will follow-up in 3 months. Patient will return to clinic in 3 months for follow-up, reevaluation of symptoms and medication refill. Patient has been instructed to contact the clinic with any concerns before the next appointment. Dr. Lopez has reviewed this note and agrees with this plan of care. This note was dictated using voice recognition software and make contain errors or omissions. [facility] History I have reviewed the patient's past medical history: Yes Medical History: Reports:: Anxiety, Arrhythmia, Chronic Obstructive Pulmonary Disease (COPD), Hyperlipidemia, Hypertension Denies:: Cancer, Diabetes Mellitus Type 1, Diabetes Mellitus Type 2, Internal Pacemaker, MRSA, Seizures *Have you ever received a pneumonia vaccine?: No *Have you received a flu vaccine this season?: No Other Medical History: Reports: Arthritis, Hypothyroidism, Thyroid Disease. Denies: Blood Transfusi
== END ==
PROVIDERS: PCP Nurse Practitioner Family; Visit Provider Nurse Practitioner Family
DX: M46.1 Sacroiliitis, not elsewhere classified (principal); M70.62 Trochanteric bursitis, left hip; M54.50 Low back pain, unspecified
CPT/HCPCS: 99212; G0463

== ENCOUNTER → 2021-12-06 11:01 | Outpatient (POV) | payer MEDICARE, SELFPAY ==
[2021-12-06 11:17] VITALS: PULSE 60; RESP 20; TEMP 36.4; O2SAT 98; BMI 23.0
--- NOTE | 2021-12-06 12:48 | EXP.PAIN.SOA ---
[facility] Pain Management SOAP Note Subjective:: This patient is a pleasant 76-year-old female who comes our clinic today for follow-up visit in regards to chronic low back pain, bilateral hip and leg radicular symptoms, sacroiliac joint pain. Patient has had a plethora of injections including lumbar epidural steroid injection, bilateral sacroiliac joint injections, bilateral trochanteric bursa injections. Patient states each injection has been effective only 3 to 4 days. Pain returns in its entirety after this time. Patient a little bit exhausted regarding her pain and options. I discussed in detail with her regarding intrathecal pain pump. I think this would be her best option for her significant improvement in her overall symptoms and active daily living. I answered the patient's questions. Gave her a brochure regarding the procedure. I talked extensively with her regarding pump trial. Permanent pump. Objective:: Patient is awake alert Darwin x3. No acute distress. Flexion extension lumbar spine very guarded secondary to pain. Deep tendon reflexes upper lower extremities normal. Motor strength upper and lower extremities normal. There is no gross sensory deficit. Gait is normal. Assessment:: Degenerative disc disease lumbar spine multilevels. Lumbar radiculopathy symptoms. Lumbar scoliosis. Lumbar spondylosis. Multilevel lumbar facet arthropathy. Bilateral sacroiliitis. Bilateral trochanteric bursitis. Plan:: Patient will read material and watch video regarding intrathecal pain pump management. I answered a plethora of questions for her today. I spent about 25 minutes with her explaining options for chronic back pain. She will call for a return visit when she makes up her mind regarding intrathecal pain pump option. [facility] Social History Smoking Status: Current every day smoker tobacco type: cigarettes packs per day: 1 second hand exposure: Yes alcohol intake: never substance use type: denies use current occupational status: retired Travel in the last 8 weeks: None household members: spouse housing: house current occupational exposures/hazards: No caffeine: Yes
== END ==
PROVIDERS: PCP Nurse Practitioner Family; Visit Provider Nurse Anesthetist, Certified Registered
DX: M51.16 Intervertebral disc disorders with radiculopathy, lumbar region (principal); M47.26 Other spondylosis with radiculopathy, lumbar region; M46.1 Sacroiliitis, not elsewhere classified; M70.61 Trochanteric bursitis, right hip; M70.62 Trochanteric bursitis, left hip; M41.9 Scoliosis, unspecified
CPT/HCPCS: 99212; G0463

== ENCOUNTER → 2022-01-13 13:50 | Outpatient (CLI) | payer MEDICARE, SELFPAY ==
--- NOTE | 2022-01-13 13:57 | US_ITS ---
PROCEDURE INFORMATION: Exam: US Left Breast, Complete Exam date and time: 01/13/2022 3:04 PM Age: 76 years old Clinical indication: Mass, lump, or swelling; Left; Additional info: Mass upper outer quad L breast TECHNIQUE: Imaging protocol: Complete ultrasound of all four quadrants of the Left breast and the retroareolar regions, including ultrasound of the axilla when performed. COMPARISON: MG MM DIG MAMM BI DX W/CAD 01/13/2022 2:03 PM FINDINGS: Breast: In the area of palpable concern, left breast 2 o'clock position, there is a rounded but irregularly marginated lesion containing low level echoes, measuring 1.1 x 1.4 x 1.1 cm. This lesion is nonspecific but can not be characterized as benign based on current study. Punctate calcifications are indicated on series 1, image 14 (also at the 2 o'clock position of the left breast) and in the left inner quadrant on series 1, image 22 (left inner quadrant). Other findings: The left axillary region, there are several apparent lymph nodes, measuring 1.4, 0.8 and 1.9 cm. IMPRESSION: 1. Rounded, irregularly marginated lesion at the 2 o'clock position left breast which can not be characterized as benign based on current study. Correlate with mammographic findings. 2. Punctate calcifications are also noted the left breast, as above. 3. Mildly prominent left axillary lymph nodes.
--- NOTE | 2022-01-13 13:59 | MM_ITS ---
PROCEDURE INFORMATION: Exam: US Left Breast, Complete MG Bilateral Diagnostic Breast Tomosynthesis Exam date and time: 01/13/2022 2:03 PM Age: 76 years old Clinical indication: Concern for lump in the left upper outer quadrant. No family history of breast cancer. TECHNIQUE: Imaging protocol: Complete ultrasound of all four quadrants of the Left breast and the retroareolar regions, including ultrasound of the axilla when performed. Bilateral Diagnostic tomosynthesis and 2D mammography including computer-aided detection (CAD) when performed. Unilateral or bilateral exam. COMPARISON: No relevant prior studies available. If prior mammograms are provided, I am happy to add an addendum. FINDINGS: MAMMOGRAPHY: Breast composition: There are scattered areas of fibroglandular density. Mass: Corresponding to the palpable concern in the left upper outer quadrant posterior 3rd, is a 1.0 cm slightly irregular mass. Architectural distortion: None. Calcifications: No suspicious calcifications. Asymmetric density: None. Skin thickening: None. Axillary adenopathy: Mild symmetric bilateral skin thickening. ULTRASOUND: Corresponding to the palpable concern and mammographic mass in the left breast at 2 o'clock 7 cm from the nipple, is an irregular solid mass measuring 1.1 by 1.4 x 1.1 cm, which is suspicious for cancer. Retained shadowing macro calcification is annotated at 7 o'clock 3 cm from the nipple. Abnormal appearing axillary nodes with thickened cortex and compressed hilum. IMPRESSION: Corresponding to the palpable concern in the highly suspicious mass in the left breast at 2 o'clock, seen mammographically and sonographically. Ultrasound-guided biopsy is recommended with corresponds to ensure that the clip matches the mammographic target. Abnormal appearing axillary lymph nodes, consider fine needle aspiration as clinically indicated. ASSESSMENT: BI-RADS Category 5: Highly suggestive of malignancy
== END ==
PROVIDERS: PCP Nurse Practitioner Family; Visit Provider Nurse Practitioner Family
DX: R92.8 Other abnormal and inconclusive findings on diagnostic imaging of breast (principal); N63.20 Unspecified lump in the left breast, unspecified quadrant
CPT/HCPCS: 76641; 77062; 77066; G0279

== ENCOUNTER → 2022-01-25 08:58 | Outpatient (CLI) | payer MEDICARE, SELFPAY ==
--- NOTE | 2022-01-25 09:05 | MM_ITS ---
FINAL REPORT CLINICAL HISTORY: .s/p clip placement, left breast biopsy FINDINGS: MAMMOGRAM LEFT TECHNIQUE: Standard digital 2-D views COMPARISON: None DENSITY: There are scattered areas of fibroglandular density FINDINGS: Nodule recently biopsied in the left upper outer quadrant is noted. Biopsy marker clip is not visualized within the lesion. The clip was thought to be within the lesion at the time of ultrasound deployment. IMPRESSION: Left breast nodule without marker clip evident RECOMMENDATION: Given histopathology of invasive ductal carcinoma, medical and surgical oncology referral recommended. If imaging guided localization is needed prior to surgery, lesion is amenable to ultrasound directed wire localization given appearance on post biopsy ultrasound. Authenticated and ERN
--- NOTE | 2022-01-25 09:47 | US_ITS ---
FINAL REPORT CLINICAL HISTORY: Left breast mass FINDINGS: ULTRASOUND-GUIDED LEFT BREAST CORE BIOPSY TECHNIQUE: Limited images were obtained to localize region of interest. The left breast was prepped in a routine sterile fashion and locally anesthetized with 1% lidocaine. Standard written informed consent was obtained. The biopsy needle was positioned within the outer periphery of the lesion. A total of 3 passes were made with a 16 gauge core biopsy needle. A biopsy marker clip was deployed and appeared to be in good position on sonography. However postbiopsy mammogram showed the lesion to be associated with post biopsy changes but no clip was evident. Clip may have been dislodged due to superficial nature or not deployed as originally thought during the biopsy portion of the procedure. Procedure was well tolerated . CONCLUSION: 1. Technically successful ultrasound guided core biopsy of left breast lesion as above. 2. Failed attempt at biopsy marker clip placement on postbiopsy mammogram. However the lesion did remain readily evident sonographically. Should patient require surgical intervention, sonographic localization based on the readily visualized nodule should be performed. Authenticated and ERN
== END ==
PROVIDERS: PCP Nurse Practitioner Family; Visit Provider Nurse Practitioner Family
DX: R92.8 Other abnormal and inconclusive findings on diagnostic imaging of breast (principal)
CPT/HCPCS: 19083; 77065

== ENCOUNTER 2022-02-04 13:31 | Emergency (ER) | payer MEDICARE, SELFPAY ==
[2022-02-04] VITALS (8 sets, daily range): BP systolic 160–179; BP diastolic 71–118; PULSE 32–68; RESP 15–20; TEMP 36.9; O2SAT 91–94; BMI 22.6
--- NOTE | 2022-02-04 15:30 | XR_ITS ---
PROCEDURE INFORMATION: Exam: XR Chest Exam date and time: 02/04/2022 4:09 PM Age: 76 years old Clinical indication: Shortness of breath; Additional info: Weakness. TECHNIQUE: Imaging protocol: Radiologic exam of the chest. Views: 1 view. COMPARISON: CR XR CHEST 2V 01/29/2021 5:07 PM FINDINGS: Lungs: No evidence of pneumonia or interstitial edema. Pleural spaces: Unremarkable. No pleural effusion. No pneumothorax. Heart/Mediastinum: Unremarkable. No cardiomegaly. Bones/joints: Unremarkable. IMPRESSION: No evidence of pneumonia or interstitial edema.
[2022-02-04 15:44] LABS: Basophils # 0.1 K/mm3 (0-0.2); Basophils % 0.9 % (0.1-2.0); Eosinophils # 0.1 K/mm3 (0.0-0.4); Eosinophils % 1.7 % (0.1-12.0); Hematocrit 44.7 % (37.0-47.0); Hemoglobin 13.8 g/dL (12.2-16.2); Lymphocytes # 2.1 K/mm3 (0.7-4.5); Lymphocytes % 35.1 % (10-50); Mean Corpuscular HGB Conc 30.9 g/dL (31.8-35.4); Mean Corpuscular Hemoglobin 31.1 pg (27.0-31.2); Mean Corpuscular Volume 100.5 fl (81-99); Monocytes # 0.5 K/mm3 (0.1-1.0); Monocytes % 8.4 % (1.7-9.3); Neutrophils # 3.2 K/mm3 (1.8-7.8); Platelet Count 193 K/mm3 (142-424); Red Blood Count 4.45 M/mm3 (4.20-5.40); Red Cell Distribution Width 12.5 % (11.5-17.5); White Blood Count 5.9 K/mm3 (4.8-10.8)
[2022-02-04 15:50] LABS: Chloride 88 mmol/L (98-107); Potassium 3.8 mmoL/L (3.5-5.1); Sodium 129 mmol/L (136-145)
[2022-02-04 15:53] LABS: Alanine Aminotransferase 48 U/L (12-78); Albumin Level 3.9 g/dl (3.5-5.0); Albumin/Globulin Ratio 1.6 (1.1-1.8); Alkaline Phosphatase 53 U/L (38-126); Anion Gap 6.8 mEq/L (5-15); Aspartate Amino Transferase 41 U/L (14-36); Bilirubin,Total 0.3 mg/dl (0.2-1.3); Blood Urea Nitrogen 11 mg/dl (7-17); Carbon Dioxide 38 mmol/L (22.0-30.0); Creatinine Clearance Estimated 42 mL/min (50-200); Estimated Glomerular Filt Rate 120 ml/min (>60); GFR (African American) 146 ML/MIN (>60); Globulin 2.5 g/dL (1.3-3.2); Total Protein,Serum 6.4 g/dl (6.3-8.2)
[2022-02-04 15:54] LABS: Calcium 9.3 mg/dl (8.4-10.2); Glucose 99 mg/dl (74-100)
[2022-02-04 16:05] LABS: Microscopic, Urine URINE MICROSCOPIC (MICROSCOPIC)
[2022-02-04 16:24] LABS: Appearance,Urine CLEAR (Clear); Bilirubin,Urine Negative (Negative); Blood, Urine Negative (Negative); Color,Urine YELLOW (Yellow); Glucose,Urine (UA) Negative (Negative); Ketones,Urine Negative (Negative); Leukocyte Esterase,Urine Negative (Negative); Nitrate,Urine Negative (Negative); PH,Urine 5.5 (5.0-8.5); Protein,Urine Negative (Negative); Urobilinogen,Urine 0.2 EU/dl (0.2)
[2022-02-04 16:52] LABS: Bacteria,Urine 1+ /lpf; WBC,Urine Occasional #/hpf (0-3)
--- NOTE | 2022-02-04 17:17 | HMH.EDGENADL ---
Discharge Plan Disposition Patient Disposition: Home, Self-Care Condition: Good Prescriptions Prescriptions: New azithromycin [Zithromax] 250 mg tablet 250 mg PO DAILY 4 Days Qty: 4 0RF Rx Instructions: start on day 2 of therapy No Action alprazolam 0.5 MG tablet 0.5 mg PO QID levothyroxine 150 MCG tablet 150 mcg PO DAILY diclofenac sodium 75 MG tablet,delayed release (DR/EC) 75 mg PO BID diclofenac sodium 75 MG tablet,delayed release (DR/EC) 75 mg PO BID Qty: 180 3RF citalopram 20 MG tablet 20 mg PO DAILY nadolol 40 MG tablet 40 mg PO BID dicyclomine 20 MG tablet 20 mg PO BID furosemide 20 MG tablet 20 mg PO BID losartan 100 MG tablet 100 mg PO DAILY Referrals Follow up/Referrals: Joni Valente MD [Primary Care Provider] - See instructions Activity Restrictions/Add. Instructions Additional Instructions/Restrictions: Zithromax as prescribed. Continue current medications. Take and record your blood pressure twice a day and present readings to Sandra at next appointment. Follow-up with primary care provider, call Sunday to make appointment. Return to the emergency department if worsening symptoms. Clinical Impressions Clinical Impression: Acute bronchitis, Hypertension, Anxiety, Contraction, premature ventricular Instructions Patient Instructions: DI for Acute Bronchitis, DI for Anxiety -- Adult, DI for High Blood Pressure Discharge ED Provider: Jatin Sherman General Adult HPI General Chief complaint: Anxiety Stated complaint: SOB, congestion, cough, bp high Time Seen by Provider: 02/04/22 16:57 Mode of Arrival: Ambulatory Source of Information: Patient Limitations: No Limitations Description of Symptoms (Recalled from ER Triage Doc. by RN): pt to ed c/o anxiety, shortness of breath and weakness. pt states she has had a recent cancer dx and has been feling bas since. pt reports being hypertensive and bradycardic since sunday. History of Present Illness HPI narrative: Patient has multiple complaints. History is obtained from her as well as her family. Patient states that she has been in a full-blown panic attack since Sunday . At that time she found out that she had intraductal breast cancer. She has a history of anxiety and is on Xanax 4 times a day. Family states the panic attacks come and go. Her blood pressure has been high today. She states that at home it was 150s systolic. She says her heart rate on her pulse monitor and blood pressure monitor was in the 30s for 2 hours. She says that they spoke to Dr. Olivares on the phone, he was covering for her primary care provider Sandra at Dr. Valente's office. He advised him to come to the emergency department to be checked. She also complains that she thinks she might have bronchitis. She has a head cold and chest congestion. It has been going on for several days. She denies fever. She feels fatigued. She says that she was exposed to a director of corporate marketing at a restaurant who was coughing and said that she had been diagnosed with bronchitis that day. The patient did a home COVID test today that was negative. She saw her primary care provider on Sunday. Advised that if she was not improving in a couple days she might need antibiotics. No antibiotics were started at that time and no testing was done in the office. States she has not had her evening medications and is due for alprazolam, nadolol, and citalopram. She takes half of a nadolol 40 mg in the evening and half of a citalopram 20 mg in the evening in addition to Xanax 0.5 mg. Related Data Home Medications Medication Instructions Recorded Confirmed alprazolam 0.5 mg tablet 0.5 mg PO QID Anxiety 04/17/18 10/31/21 levothyroxine 150 mcg tablet 150 mcg PO DAILY thyroid 04/17/18 10/31/21 citalopram 20 mg tablet 20 mg PO DAILY . 07/08/21 10/31/21 nadolol 40 mg tablet 40 mg PO BID htn 07/08/21 10/31/21 dicyclomine
--- NOTE | 2022-02-04 17:18 | ECG_ITS ---
APPROVED REPORT Exam: Resting ECG HR:63 bpm ECG Measurements Heart Rate 63 AXES CA 190 P 55 QRSd 84 QRS 51 QT 425 T 54 QTc 433 Conclusion SINUS RHYTHM WITH FREQUENT VENTRICULAR PREMATURE COMPLEXES POSSIBLE LEFT ATRIAL ENLARGEMENT [-0.1mV P-WAVE IN V1/V2] ABNORMAL RHYTHM ECG UNCONFIRMED REPORT Electronically signed by : Joni Valente MD 02/05/2022 14:56:10
[2022-02-04 17:42] LABS: Coronavirus 19, PCR Not Detected (NotDetected); Influenza A, PCR Not Detected (NotDetected); Influenza B, PCR Not Detected (NotDetected)
[2022-02-04 17:51] LABS: Troponin I 0.02 ng/ml (0.00-0.034)
--- NOTE | 2022-02-04 18:32 | PC.NURSE ---
at the bedside
== END 2022-02-04 19:01 | disposition home or self-care (01) ==
PROVIDERS: Emergency Provider Emergency Medicine; PCP Internal Medicine Adolescent Medicine
DX: I49.3 Ventricular premature depolarization (principal); J20.9 Acute bronchitis, unspecified; I10 Essential (primary) hypertension; F41.9 Anxiety disorder, unspecified; Z79.899 Other long term (current) drug therapy
CPT/HCPCS: 71045; 80053; 81001; 84484; 85025; 93005; 99285; C9803; U0003; U0005

== ENCOUNTER 2022-04-13 07:19 | Day surgery (SDC) | payer MEDICARE, SELFPAY ==
[2022-04-11 11:54] VITALS: BMI 22.6
[2022-04-13] VITALS (15 sets, daily range): BP systolic 121–199; BP diastolic 50–103; PULSE 52–66; RESP 16–18; TEMP 36.3–43; O2SAT 91–100
[2022-04-13 08:32] LABS: Anion Gap 8.8 mEq/L (5-15); Blood Urea Nitrogen 14 mg/dl (7-17); Calcium 9.3 mg/dl (8.4-10.2); Carbon Dioxide 33 mmol/L (22.0-30.0); Chloride 98 mmol/L (98-107); Creatinine Clearance Estimated 42 mL/min (50-200); Estimated Glomerular Filt Rate 97 ml/min (>60); GFR (African American) 118 ML/MIN (>60); Glucose 100 mg/dl (74-100); Potassium 3.8 mmoL/L (3.5-5.1); Sodium 136 mmol/L (136-145)
--- NOTE | 2022-04-13 09:30 | EXP.ANES.CKL ---
[facility] Disclaimer: The information contained in this section may have been updated after the patient was seen, as this information can be updated by other users. Medical History (Updated 04/13/22 @ 07:54 by Lew Higuera RN) Anxiety Arthritis of hip Breast cancer COPD exacerbation Emphysema/COPD Hypertension Hypothyroid SVT (supraventricular tachycardia) Surgical History H/O thyroidectomy History of cataract surgery History of colonoscopy History of laparoscopic cholecystectomy History of total hip replacement Family History Other No significant family history Social History Smoking Status: Never smoker second hand exposure: Yes alcohol intake: never substance use type: denies use current occupational status: retired Travel in the last 8 weeks: None household members: spouse housing: house current occupational exposures/hazards: No caffeine: Yes [facility] Anesthesia Checklist Patient Identification Patient Identification: Arm Band Structural Data Admitted From: Home Planned Operative Procedure/s: Left Breast Lumpectomy Consent for Planned Operative Procedure(s) Verified: Yes Verified Documents: Surgical Consent and History and Physical NPO Status Verified Time NPO: 00:00 Additional verifications Anesthesia Reactions: No Hx Blood Transfusions: No Blood Transfusion Reaction: No Airway Assessment C-Spine Mobility Assessed: Yes TMJ Mobility Assessed: Yes Dentition: Good Dentition Neurological Assessment Level of Consciousness: Awake and Alert Anesthesia Plan Anesthesia Risk discussed: Yes Anesthesia Plan: Verified ASA Class: II Anesthesia Type: General
--- NOTE | 2022-04-13 10:38 | EXP.OP.NOTE ---
Date of procedure: 04/13/22 Pre-op Diagnosis:: Left breast cancer Post-op Diagnosis:: Same Procedure performed:: Left partial mastectomy (lumpectomy) Left axillary sentinel lymph node biopsy Surgeon:: Del Damon MD VISITOR SERVICES TECHNICIAN:: Braulio Gonzalez Anesthesia: LMA Estimated blood loss (mL): 15 Operative findings:: Left axillary sentinel lymph node Neoprobe target count 13,504 Operative note:: After informed consent was obtained the patient underwent injection of radioisotope at the areolar margin (preoperative holding area). After standard delay to allow for appropriate uptake she was transferred to the operative suite. Peritumoral diluted methylene blue injection was then completed after general anesthesia with laryngeal mask airway was achieved. Her left axilla and breast region were prepped and draped in a sterile fashion. After infiltration local anesthetic and incision was made at the site of maximum uptake of radioisotope in the left axilla. The deep subcutaneous tissue was carefully dissected. A somewhat firm area of nodularity was carefully elevated and the target node(s) were excised with electrocautery. Obvious uptake of blue dye noted. Neoprobe target count 13,504 confirmed. Reevaluation of the axilla revealed background uptake only . The sentinel node tissue was passed off for pathologic evaluation. Electrocautery was utilized to achieve hemostasis. The deep subcutaneous tissue was reapproximated with non-dyed 2-0 Vicryl and skin was closed with 3-0 Monocryl STRATAFIX. Attention was then turned to the palpable left mid/lateral breast mass. After infiltration with local anesthetic a slightly curvilinear incision was made overlying the palpable mass. A combination of sharp dissection with scalpel and electrocautery was utilized to transect around the tumor circumferentially. The tumor and surrounding tissue was excised in toto and passed off for pathologic evaluation after being marked for orientation with non-dyed and dyed suture. Electrocautery and metallic clips were utilized to achieve hemostasis. Additional clips were placed along the wound base and margin. The deep subcutaneous tissue was reapproximated with 2-0 Vicryl and skin was then closed with 4-0 Monocryl in a running subcuticular manner. Dressings were applied and the patient was transferred to recovery in stable condition. Condition: stable Disposition: PACU Specimens:: Left axillary sentinel lymph node (target count 13,504) Left breast partial mastectomy (lumpectomy) Complications:: No immediate
--- NOTE | 2022-04-13 10:49 | P.PNANES_ITS ---
[facility] Anesthesia Record Part I Anesthesia Record I Intake, IV Amount: 1,000 Estimated blood loss (mL): 10 Urine output (mL): 0 Blood Products used (#): none Blood Pressure: 163/103 SaO2: 100 Pulse Rate: 52 Respiratory Rate: 16 Temperature: 97.4 F Patient is:: Drowsy and Stable Stable to PACU at:: 10:50
--- NOTE | 2022-04-13 19:09 | EXP.ANES.II ---
[facility] Anesthesia Record Part II Anesthesia Record Part II Discharge Time: 11:50 Destination: Surgical Day Care (OP Surgery) PACU nurse assessment reviewed?: Yes Patient Condition:: Good Anesthesia Complications:: None Swallowing reflex intact?: Yes Cyanosis?: No Blood Pressure: 185/93 Pulse Rate: 62 Temperature: 97.5 F Mental Status: Alert & Oriented Pain level:: 3 Nausea and/or vomitting:: None Intake, IV Amount: 0
== END 2022-04-13 12:50 | disposition home or self-care (01) ==
PROVIDERS: PCP Internal Medicine Adolescent Medicine; Visit Provider Surgery
PROC: (CPT 19301; principal; 2022-04-13 08:45)
DX: C50.412 Malignant neoplasm of upper-outer quadrant of left female breast (principal); Z17.0 Estrogen receptor positive status [ER+]; C77.3 Secondary and unspecified malignant neoplasm of axilla and upper limb lymph nodes
CPT/HCPCS: 19301; 38525; 38900; 80048; 88307; 88342; 96374; A9541; J2405

== ENCOUNTER → 2022-05-03 09:52 | Outpatient (CLI) | payer MEDICARE, SELFPAY ==
[2022-05-03 11:01] LABS: Blood Urea Nitrogen 13 mg/dl (7-17); Creatinine,Serum 0.54 mg/dl (0.52-1.04); Estimated Glomerular Filt Rate 110 ml/min (>60); GFR (African American) 133 ML/MIN (>60)
== END ==
PROVIDERS: PCP Nurse Practitioner Family; Visit Provider Internal Medicine Medical Oncology
DX: Z01.818 Encounter for other preprocedural examination (principal); C50.912 Malignant neoplasm of unspecified site of left female breast
CPT/HCPCS: 36415; 82565; 84520

== ENCOUNTER → 2022-05-09 10:10 | Outpatient (CLI) | payer MEDICARE, SELFPAY ==
--- NOTE | 2022-05-09 10:17 | CT_ITS ---
FINAL REPORT TECHNIQUE: Axial images of the chest were performed with and without contrast. Sagittal and coronal reformatted images were obtained and reviewed. This study was performed with techniques to keep radiation doses as low as reasonably achievable (ALARA). Individualized dose reduction techniques using automated exposure control or adjustment of mA and/or kV according to the patient's size were employed. CLINICAL HISTORY: .breast cancer FINDINGS: There is no evidence of axillary, mediastinal, or hilar lymphadenopathy. There is a fluid collection containing air within the left breast measuring 7.3 cm, likely represents postoperative hematoma or seroma although abscess is not entirely excluded. There is skin thickening of the left breast. There are changes of emphysema. No suspicious mass or pulmonary nodule is identified. There is no acute osseous abnormality. IMPRESSION: Postoperative changes in the left breast with probable hematoma or seroma although abscess is not entirely excluded. No evidence of metastatic disease to the chest. Reviewed, Interpreted and Dictated by Michelle Melvin MD Transcribed by Becca Harmon Authenticated and [facility]
--- NOTE | 2022-05-09 10:17 | CT_ITS ---
FINAL REPORT TECHNIQUE: Pre-and postcontrast axial imaging of the abdomen and pelvis was obtained. Oral contrast was given. This study was performed with techniques to keep radiation doses as low as reasonably achievable, (ALARA). Individualized dose reduction technique using automated exposure control or adjustment of mA and/or kV according to the patient's size were employed. CLINICAL HISTORY: .breast cancer FINDINGS: The liver is homogeneous. The gallbladder is absent. The spleen and pancreas are unremarkable. There are bilateral adrenal nodules. Right adrenal nodule measures 2.3 cm with a mean attenuation value of less than 10 Hounsfield units on noncontrast images consistent with an adenoma. The left adrenal nodule does not meet strict criteria for an adenoma. There is no hydronephrosis or solid renal mass. On precontrast imaging, no renal stones are identified. There is no evidence of small-bowel obstruction. There is a suprarenal abdominal aortic aneurysm measuring 4.7 cm. There is a infrarenal aneurysm measuring 3.5 cm. There is no lymphadenopathy or ascites. The uterus is small. The appendix is unremarkable. There is diverticulosis without evidence of diverticulitis. There is mild long segment proximal colonic wall thickening, colitis is not excluded. There is no lymphadenopathy or ascites. No acute osseous abnormalities identified. IMPRESSION: Left adrenal nodule does not meet strict criteria for an adenoma. Consider PET CT if indicated. Otherwise, no evidence of metastatic disease to the abdomen and pelvis. Possible colitis. Abdominal aortic aneurysm. Reviewed, Interpreted and Dictated by Michelle Melvin MD Transcribed by Becca Harmon Authenticated and [facility]
== END ==
PROVIDERS: PCP Nurse Practitioner Family; Visit Provider Internal Medicine Medical Oncology
DX: C50.912 Malignant neoplasm of unspecified site of left female breast (principal)
CPT/HCPCS: 71270; 74178; Q9967

== ENCOUNTER → 2022-09-14 14:59 | Outpatient (POV) | payer MEDICARE, SELFPAY ==
--- NOTE | 2022-09-14 15:02 | EXP.PAIN.SOA ---
[facility] Pain Management SOAP Note Subjective:: Patient is a pleasant 77-year-old female that presents today for follow-up. We are currently treating the patient for chronic left sacroiliitis and left trochanteric bursitis. Today she rates her pain a 9 out of 10. She states her pain is all in her low back along her left side with radiating symptoms into her hip. She does describe this as a aching, throbbing sensation that is worse with increased activity. She does state the pain interferes with her ability perform activities of daily living such as cooking and cleaning. Patient has had significant issues from her last visit. Patient states that she was diagnosed with breast cancer and had a lumpectomy. Patient states she had 4 weeks of radiation however this had to be discontinued due to worsening symptoms. Patient does state that the cancer was found in at least 1 lymph node and that she is now on a oral medication that has caused menopause like symptoms. She also states that she has recently lost a sister. She has had multiple SI and bursa injections in the past that did provide significant relief however only lasting for short periods of time. She is interested in scheduling an injection during today's visit. At our last visit she was prescribed a 3-month supply of diclofenac 75 mg twice a day. Patient denies any side effects from this medication. Patient denies having any cardiac or kidney issues. She does state that now she is just doing 2 Tylenol and 1 ibuprofen 3 times a day. She was prescribed compounding cream in the past however she stated that she did not notice any additional improvement over her Biofreeze. Patient does have a history of bilateral hip surgery and has been to multiple sessions of physical therapy in the past. Her Adalid is [id number]. Its been reviewed and appropriate. Review of Systems: General: No recent weight changes, no fever, no sleep disturbances Respiratory: No cough, no shortness of air, no recurring pulmonary infections Cardiovascular/peripheral vascular: No chest pain, no palpitations, no edema, no shortness of breath Gastrointestinal: No new onset incontinence, normal bowel movements reported Genitourinary: No new onset incontinence Musculoskeletal: Low back pain Psychiatric: [Normal mood/affect] Neurological: [Denies weakness in extremities], [denies balance issues] Objective:: Physical Exam: General: Alert and oriented x3, no acute distress, pleasant and cooperative Lungs: Respirations even and unlabored, symmetrical chest expansion Eyes: PERRL Musculoskeletal: Flexion and extension of lumbar [spine] somewhat guarded secondary to pain, [antalgic gait noted] point tenderness noted at left bursa and point tenderness at left SI with positive left Cyndi's, Darrick's, Gaenslen's, compression and distraction exam Neurological: Speech clear, no gross sensory deficit Assessment:: Chronic left sacroiliitis, left trochanteric bursitis, low back pain Plan:: Patient is experiencing significant pain in her low back along the left side with radiating symptoms into her left hip. Patient had point tenderness noted at her left bursa and left SI with positive left Cyndi's, Darrick's, Gaenslen's, compression and distraction exam. I have discussed with the patient that she may benefit from repeat bursa and SI injections. Risk and benefits were discussed with the patient. Patient does state that her hip pain is bothering her more than her SI pain at today's visit and she would like to proceed forward with this injection first. I have counseled the patient that when she goes for her bursa injection that we can schedule her for the following left SI injection. She will be scheduled for a left bursa injection. Patient has been instructed to contact the clinic with any concerns before the next appointment. Dr. Lopez has reviewed this note and agrees with this plan of care. This note was dictated using voice recognition software and make
[2022-09-14 16:07] VITALS: BP 150/82; PULSE 63; RESP 18; BMI 21.0
== END ==
PROVIDERS: PCP Internal Medicine Adolescent Medicine; Visit Provider Nurse Practitioner Family
DX: M46.1 Sacroiliitis, not elsewhere classified (principal); M70.62 Trochanteric bursitis, left hip; M54.16 Radiculopathy, lumbar region
CPT/HCPCS: 99212; G0463

== ENCOUNTER 2022-09-26 11:01 | Day surgery (SDC) | payer MEDICARE, SELFPAY ==
[2022-09-26 11:16] VITALS: BP 172/83; PULSE 61; RESP 18; TEMP 36.5; O2SAT 93; BMI 22.4
[2022-09-26 11:30] VITALS: BP 186/81; PULSE 53; RESP 18; O2SAT 98
--- NOTE | 2022-09-26 11:37 | P.PCN_ITS ---
Procedure Date: 09/26/22 Time: 11:25 Anesthesiologist:: Alfredo Nice CRNA Complications:: None Pre-procedure Diagnosis:: Left trochanteric bursitis. Post-procedure Diagnosis:: Same. Indications for Procedure:: Patient is a very pleasant 77-year-old female that comes our clinic today for a left trochanteric bursa injection. Patient describes the pain as constant, dull, sharp, stabbing. She has extreme point tenderness over the left trochanteric bursa. She rates her pain 7/10. Procedure Details:: Procedure:Left trochanteric bursa injection under fluoroscopy We then moved to the left trochanteric bursa.~ C-arm fluoroscopy was used to view the left greater trochanter.~ The skin and subcutaneous tissues overlying the left greater trochanter were anesthetized using lidocaine, 1.5% and a 25- gauge needle.~ After this, a 22-gauge spinal needle was inserted and advanced until it contacted the left greater trochanter.~ Dye was injected and good spread was seen throughout the left trochanteric bursa. After this, approximately 5 mL of bupivacaine, 0.25% and Depo-Medrol, 40 mg was incrementally injected into the left trochanteric bursa.~ The patient tolerated the procedure well with no complications. Plan and Disposition:: Patient was discharged without incident.
[2022-09-26 11:40] VITALS: BP 190/86; PULSE 54; RESP 18; O2SAT 93
== END 2022-09-26 11:40 | disposition home or self-care (01) ==
PROVIDERS: PCP Internal Medicine Adolescent Medicine; Visit Provider Nurse Anesthetist, Certified Registered
DX: M70.62 Trochanteric bursitis, left hip (principal)
CPT/HCPCS: 20610; 77002; J1040

== ENCOUNTER 2022-10-10 11:01 | Day surgery (SDC) | payer MEDICARE, SELFPAY ==
[2022-10-10 11:10] VITALS: BP 111/67; PULSE 51; RESP 18; O2SAT 98; BMI 21.5
--- NOTE | 2022-10-10 11:17 | P.PCN_ITS ---
Procedure Date: 10/10/22 Time: 11:10 Anesthesiologist:: Alfredo Nice CRNA Complications:: None Pre-procedure Diagnosis:: Bilateral sacroiliitis. Post-procedure Diagnosis:: Same. Indications for Procedure:: Patient is a pleasant 77-year-old female that comes our clinic today for a left sacroiliac joint injection. However, patient complaining of severe right posterior hip pain as well. Upon examination she has extreme point tenderness over the bilateral sacroiliac joints. Patient has positive bilateral sacroiliac joint compression test. Positive Cyndi's test bilaterally. She rates her pain 8/10. Patient reports having difficulty transitioning from sitting to standing. Patient reports ambulating for any distance is difficult secondary to severe posterior hip pain. Procedure Details:: Procedure: Bilateral sacroiliac joint injections under fluoroscopy Informed consent was obtained and the risks and benefits of the procedure were explained to the patient.~ The patient was taken to the procedure room and noninvasive monitors were placed including a noninvasive blood pressure cuff and pulse oximeter.~ The patient was placed prone on the procedure table. Both hips were cleansed using Betadine as a cleansing solution. C-arm fluoroscopy was used to view the right sacroiliac joint.~ The skin and subcutaneous tissues were anesthetized using lidocaine 1.5% and a 25-gauge needle.~ After this, a 22-gauge spinal needle was inserted under fluoroscopic guidance into the inferior aspect of the right sacroiliac joint.~ Omnipaque dye was injected and good spread was seen throughout the joint.~ After this, approximately 5 mL of bupivacaine, 0.25% and Depo-Medrol, 40 mg was incrementally injected into the right sacroiliac joint. We then moved to the left sacroiliac joint.~ The skin and subcutaneous tissues were anesthetized using lidocaine 1.5% and a 25-gauge needle.~ After this, a 22- gauge spinal needle was inserted under fluoroscopic guidance into the inferior aspect of the left sacroiliac joint.~ Omnipaque dye was injected and good spread was seen throughout the joint. After this, approximately 5 mL of bupivacaine, 0.25% and Depo-Medrol, 40 mg was incrementally injected into the left sacroiliac joint.~ The patient tolerated the procedure well with no complications. The patient was observed in the Pain Clinic and then was discharged home neurologically intact. Plan and Disposition:: Patient was discharged without incident.
[2022-10-10 11:18] VITALS: BP 118/73; PULSE 53; RESP 18; O2SAT 98
== END 2022-10-10 11:18 | disposition home or self-care (01) ==
PROVIDERS: PCP Nurse Practitioner Family; Visit Provider Nurse Anesthetist, Certified Registered
DX: M46.1 Sacroiliitis, not elsewhere classified (principal)
CPT/HCPCS: 27096; G0260; J1040

== ENCOUNTER → 2022-10-25 11:02 | Outpatient (POV) | payer MEDICARE, SELFPAY ==
[2022-10-25 11:28] VITALS: BP 166/88; PULSE 55; RESP 18; O2SAT 97; BMI 21.3
--- NOTE | 2022-10-25 11:42 | EXP.PAIN.SOA ---
[facility] Pain Management SOAP Note Subjective:: Patient is a pleasant 77-year-old female that presents today for follow-up of bilateral SI injections on 10/10/2022. We are currently treating the patient for chronic left sacroiliitis and left trochanteric bursitis. Today she rates her pain a 8 out of 10. She states that the injections do help however it is typically only temporary relief. She is stating that she is back to her baseline today. She does describe this as a aching, throbbing sensation that is worse with increased activity. She does state from our last visit she has had additional issues. Patient was recently diagnosed with cancer and is scheduled for her follow-up with Natasha Ramirez next week. Patient does state along with that she is also dealing with uterine prolapse that she has been seeing Dr. Yang for. She states that they did do a pessary device and it has provided some improvement however recently she had it come out by accident when she was applying cream. Patient also states that she does have chronic IBS and has been on medication however as of lately she has been dealing more with constipation. Patient does state that she continues to take several Tylenol and ibuprofen during the day to help with her symptoms. She is prescribed diclofenac 75 mg twice a day from our office. Patient denies any side effects from this medication. She is also prescribed alprazolam 1 mg 3 times a day from an outside provider. Her Adalid is [id number]. Its been reviewed and appropriate. Review of Systems: General: No recent weight changes, no fever, no sleep disturbances Respiratory: No cough, no shortness of air, no recurring pulmonary infections Cardiovascular/peripheral vascular: No chest pain, no palpitations, no edema, no shortness of breath Gastrointestinal: No new onset incontinence, normal bowel movements reported Genitourinary: No new onset incontinence Musculoskeletal: Low back pain Psychiatric: [Normal mood/affect] Neurological: [Denies weakness in extremities], [denies balance issues] Objective:: Physical Exam: General: Alert and oriented x3, no acute distress, pleasant and cooperative Lungs: Respirations even and unlabored, symmetrical chest expansion Eyes: PERRL Musculoskeletal: Flexion and extension of lumbar [spine] somewhat guarded secondary to pain, [antalgic gait noted] Neurological: Speech clear, no gross sensory deficit Assessment:: low back pain, chronic sacroiliitis, left trochanteric bursitis Plan:: Patient continues to experience significant pain in her low back with limited range of motion. I have discussed with the patient that due to her recent cancer diagnosis I am not recommending proceeding forward with a pain pump trial at this time. I have also counseled the patient that she would benefit from MiraLAX being added to her daily medication regimen. I have also explained that this does not have to be taken every day that she will have to try it and see what works best for her. I have also discussed with the patient that she may benefit from the addition of tramadol for pain however she states that due to taking 9 medications already she would like to wait on this option. I have counseled her that she can contact our office if she would like this to be sent over electronically. Patient denies any cardiac or kidney issues. I have also discussed with patient that she may benefit from occasional injective therapy as needed. Patient has previously gotten significant improvement with SI and bursa injections. I have counseled the patient that she can always call and schedule her bilateral SI injections over the phone if she starts having worsening pain before her next follow-up appointment. Patient will return to clinic in 1 month for reevaluation of symptoms and plan of care. Patient has been instructed to contact the clinic with any concerns before the next appointment. Dr. Lopez has reviewed this note and agrees with this plan of ca
== END ==
PROVIDERS: PCP Nurse Practitioner Family; Visit Provider Nurse Practitioner Family
DX: M46.1 Sacroiliitis, not elsewhere classified (principal); M70.62 Trochanteric bursitis, left hip; M54.50 Low back pain, unspecified
CPT/HCPCS: 99212; G0463

== ENCOUNTER → 2022-11-14 12:23 | Outpatient (CLI) | payer MEDICARE, SELFPAY ==
[2022-11-14 12:49] LABS: Basophils # 0.1 K/mm3 (0-0.2); Basophils % 0.8 % (0.1-2.0); Eosinophils # 0.1 K/mm3 (0.0-0.4); Hematocrit 47.3 % (37.0-47.0); Hemoglobin 15.1 g/dL (12.2-16.2); Lymphocytes # 1.6 K/mm3 (0.7-4.5); Lymphocytes % 26.3 % (10-50); Mean Corpuscular HGB Conc 31.9 g/dL (31.8-35.4); Mean Corpuscular Hemoglobin 31.8 pg (27.0-31.2); Mean Corpuscular Volume 99.7 fl (81-99); Mean Platelet Volume 7.7 fl (7.4-10.4); Monocytes # 0.6 K/mm3 (0.1-1.0); Monocytes % 9.5 % (1.7-9.3); Neutrophils # 3.7 K/mm3 (1.8-7.8); Neutrophils % 61.4 % (37.0-80.0); Platelet Count 232 K/mm3 (142-424); Red Blood Count 4.74 M/mm3 (4.20-5.40); Red Cell Distribution Width 13.4 % (11.5-17.5)
[2022-11-14 13:07] LABS: Chloride 92 mmol/L (98-107); Potassium 3.8 mmoL/L (3.5-5.1); Sodium 133 mmol/L (136-145)
[2022-11-14 13:10] LABS: Alanine Aminotransferase 20 U/L (12-78); Albumin Level 3.7 g/dl (3.5-5.0); Albumin/Globulin Ratio 1.5 (1.1-1.8); Alkaline Phosphatase 36 U/L (38-126); Anion Gap 10.8 mEq/L (5-15); Aspartate Amino Transferase 26 U/L (14-36); Bilirubin,Total 0.4 mg/dl (0.2-1.3); Blood Urea Nitrogen 9 mg/dl (7-17); Calcium 9.4 mg/dl (8.4-10.2); Carbon Dioxide 34 mmol/L (22.0-30.0); Estimated Glomerular Filt Rate 97 ml/min (>60); GFR (African American) 118 ML/MIN (>60); Globulin 2.5 g/dL (1.3-3.2); Glucose 97 mg/dl (74-100); Total Protein,Serum 6.2 g/dl (6.3-8.2)
== END ==
PROVIDERS: PCP Nurse Practitioner Family; Visit Provider Internal Medicine Medical Oncology
DX: C50.012 Malignant neoplasm of nipple and areola, left female breast (principal)
CPT/HCPCS: 36415; 80053; 85025

== ENCOUNTER → 2022-11-21 09:36 | Outpatient (CLI) | payer MEDICARE, SELFPAY ==
--- NOTE | 2022-11-21 09:41 | CT_ITS ---
FINAL REPORT TECHNIQUE: Axial images were obtained from the lung bases through the pubic symphysis before and after the administration of intravenous contrast. Oral contrast was administered. This study was performed with techniques to keep radiation doses as low as reasonably achievable (ALARA). Individualized dose reduction techniques using automated exposure control or adjustment of mA and/or kV according to the patient's size were employed. CLINICAL HISTORY: BREAST CANCER COMPARISON: April 2022 FINDINGS: Precontrast images demonstrate no evidence of nephrolithiasis or hydronephrosis. Abdomen: The lung bases are clear. The liver parenchyma is homogeneous. There has been cholecystectomy. The spleen and packed are unremarkable.. There are stable bilateral adrenal nodules favoring adenomas. The kidneys enhance normally. There is no mass or adenopathy identified. There is no evidence of bowel obstruction. There is descending and sigmoid colon diverticulosis without diverticulitis. There is an approximate 3.8 cm abdominal aortic aneurysm that is stable from the prior exam. There is moderate mural thrombus. Pelvis: The appendix is not identified. The urinary bladder is unremarkable. There is no mass, free fluid or adenopathy. There is streak artifact from bilateral hip arthroplasties. There is prominence of the vaginal cuff of uncertain significance. There are prominent pelvic vessels which can be seen with pelvic congestion. IMPRESSION: Stable abdominal aortic aneurysm with moderate mural thrombus. Diverticulosis without diverticulitis. Prominent pelvic vessels which can be seen with pelvic congestion syndrome. Reviewed, Interpreted and Dictated by Phillip Javier III, MD Transcribed by Noel Raymond Authenticated and [facility]
--- NOTE | 2022-11-21 09:41 | CT_ITS ---
FINAL REPORT CLINICAL HISTORY: BREAST CANCER COMPARISON: 05/09/2022 FINDINGS: Multiplanar MR imaging of the chest was performed with and without contrast. There is no evidence of mediastinal or hilar mass. There are postoperative changes in the left breast. The heart is normal in size. There is no pleural or pericardial effusion. There is mild emphysema and mild scarring. There is calcified granuloma in the left upper lobe. Limited images of the upper abdomen reveal a partially imaged abdominal aortic aneurysm measuring at least 4.4 cm. IMPRESSION: No evidence of metastatic disease. Reviewed, Interpreted and Dictated by Phillip Javier III, MD Transcribed by Becca Harmon Authenticated and [facility]
== END ==
PROVIDERS: PCP Nurse Practitioner Family; Visit Provider Internal Medicine Medical Oncology
DX: C50.912 Malignant neoplasm of unspecified site of left female breast (principal); Z17.0 Estrogen receptor positive status [ER+]
CPT/HCPCS: 71270; 74178; Q9967

== ENCOUNTER → 2023-01-04 13:06 | Outpatient (CLI) | payer MEDICARE, SELFPAY ==
--- NOTE | 2023-01-04 13:13 | MM_ITS ---
PROCEDURE INFORMATION: Exam: MG Bilateral Diagnostic Breast Tomosynthesis Exam date and time: 01/04/2023 1:09 PM Age: 77 years old Clinical indication: Short-term radiographic followup; Left breast; cancer TECHNIQUE: Imaging protocol: Bilateral Diagnostic tomosynthesis and 2D mammography including computer-aided detection (CAD) when performed. Unilateral or bilateral exam. COMPARISON: 1. MG MM CLIP PLACEMENT LT 01/25/2022 10:18 AM 2. MG MM DIG MAMM BI DX W/CAD 01/13/2022 2:03 PM FINDINGS: MAMMOGRAPHY: The breast tissue is composed of scattered areas of fibroglandular density. There is no stellate mass, architectural distortion or suspicious microcalcifications in either breast to suggest malignancy. The previously noted left upper outer quadrant biopsy-proven invasive ductal carcinoma has been removed. Surgical clips a postoperative distortion is noted in the left upper outer quadrant. Diffuse skin thickening on the left and increased stromal markings are consistent with radiation change. No axillary adenopathy. IMPRESSION: No mammographic evidence of malignancy. Annual bilateral mammographic screening is recommended unless otherwise clinically indicated. ASSESSMENT: BI-RADS Category 2: Benign
== END ==
PROVIDERS: PCP Nurse Practitioner Family; Visit Provider Internal Medicine Medical Oncology
DX: C50.912 Malignant neoplasm of unspecified site of left female breast (principal); Z17.1 Estrogen receptor negative status [ER-]; R92.8 Other abnormal and inconclusive findings on diagnostic imaging of breast
CPT/HCPCS: 77062; 77066; G0279

== ENCOUNTER → 2023-02-19 13:36 | Outpatient (CLI) | payer MEDICARE, SELFPAY ==
[2023-02-19 14:24] LABS: Basophils % 0.6 % (0.1-2.0); Eosinophils # 0.1 K/mm3 (0.0-0.4); Eosinophils % 2.2 % (0.1-12.0); Hematocrit 45.8 % (37.0-47.0); Hemoglobin 15.2 g/dL (12.2-16.2); Lymphocytes # 1.4 K/mm3 (0.7-4.5); Lymphocytes % 28.6 % (10-50); Mean Corpuscular HGB Conc 33.1 g/dL (31.8-35.4); Mean Corpuscular Hemoglobin 32.8 pg (27.0-31.2); Mean Corpuscular Volume 99.1 fl (81-99); Mean Platelet Volume 7.5 fl (7.4-10.4); Monocytes # 0.6 K/mm3 (0.1-1.0); Monocytes % 12.4 % (1.7-9.3); Neutrophils # 2.7 K/mm3 (1.8-7.8); Neutrophils % 56.2 % (37.0-80.0); Platelet Count 237 K/mm3 (142-424); Red Blood Count 4.62 M/mm3 (4.20-5.40); White Blood Count 4.8 K/mm3 (4.8-10.8)
[2023-02-19 14:43] LABS: Chloride 90 mmol/L (98-107); Potassium 3.9 mmoL/L (3.5-5.1); Sodium 132 mmol/L (136-145)
[2023-02-19 14:45] LABS: Alanine Aminotransferase 21 U/L (12-78); Aspartate Amino Transferase 32 U/L (14-36); Blood Urea Nitrogen 13 mg/dl (7-17); Estimated Glomerular Filt Rate 81 ml/min (>60); GFR (African American) 98 ML/MIN (>60)
[2023-02-19 14:46] LABS: Albumin/Globulin Ratio 1.5 (1.1-1.8); Alkaline Phosphatase 42 U/L (38-126); Bilirubin,Total 0.4 mg/dl (0.2-1.3); Calcium 8.9 mg/dl (8.4-10.2); Globulin 2.6 g/dL (1.3-3.2); Glucose 90 mg/dl (74-100); Total Protein,Serum 6.6 g/dl (6.3-8.2)
[2023-02-19 14:53] LABS: Anion Gap 7.9 mEq/L (5-15); Carbon Dioxide 38 mmol/L (22.0-30.0)
== END ==
PROVIDERS: PCP Nurse Practitioner Family; Visit Provider Internal Medicine Medical Oncology
DX: C50.912 Malignant neoplasm of unspecified site of left female breast (principal); Z17.0 Estrogen receptor positive status [ER+]
CPT/HCPCS: 36415; 80053; 85025

== ENCOUNTER → 2023-04-02 11:48 | Outpatient (POV) | payer MEDICARE, SELFPAY ==
--- NOTE | 2023-04-02 12:06 | EXP.PAIN.SOA ---
[facility] Pain Management SOAP Note Subjective:: Patient is a pleasant 77-year-old female that presents today for follow-up. We are currently treating the patient for chronic left sacroiliitis and left trochanteric bursitis. Today she rates her pain a 8 out of 10. Patient denies any new trauma or injury. She does state that she is experiencing worsening pain in her low back and hips. She describes this as a constant aching, throbbing sensation that is worse with increased activity or ambulation. She states the pain does interfere with her ability to perform activities of daily living. She states that the pain worsens with prolonged standing or walking. Patient states that she did end up having surgery for her breast cancer and underwent 18 radiation treatments. Patient states she did end up experiencing blistering of her skin and did not end up doing any additional radiation treatments. She states that that time they were not recommending any chemotherapy. Patient states that she did end up having a mammogram in December that was okay and that they are planning on just monitoring her progress. Patient does state that she continues to take several Tylenol and ibuprofen during the day to help with her symptoms. She was prescribed diclofenac 75 mg twice a day from our office however she states that she did not end up picking this up. Patient has tried Celebrex in the past with minimal improvement. Patient is interested in starting the diclofenac medication again. She is prescribed alprazolam from an outside provider. Her Adalid has been reviewed and appropriate. Review of Systems: General: No recent weight changes, no fever, no sleep disturbances Respiratory: No cough, no shortness of air, no recurring pulmonary infections Cardiovascular/peripheral vascular: No chest pain, no palpitations, no edema, no shortness of breath Gastrointestinal: No new onset incontinence, normal bowel movements reported Genitourinary: No new onset incontinence Musculoskeletal: Low back pain, bilateral hips pain Psychiatric: [Normal mood/affect] Neurological: [Denies weakness in extremities], [denies balance issues] Objective:: Physical Exam: General: Alert and oriented x3, no acute distress, pleasant and cooperative Lungs: Respirations even and unlabored, symmetrical chest expansion Eyes: PERRL Musculoskeletal: Flexion and extension of lumbar [spine] somewhat guarded secondary to pain, [antalgic gait noted] point tenderness along bilateral SIs with positive bilateral Cyndi's, Darrick's, Gaenslen's, compression and distraction exam Neurological: Speech clear, no gross sensory deficit Assessment:: Low back pain with lumbar radiculopathy symptoms, chronic sacroiliitis, greater trochanteric bursitis Plan:: Patient is experiencing worsening pain in her low back and bilateral hips with limited range of motion of her lumbar spine. Patient did have point tenderness along her bilateral SIs with positive bilateral Cyndi's, Darrick's, Gaenslen's, compression and distraction exam. I have discussed with the patient that she may benefit from bilateral SI injections. Risk and benefits were discussed with the patient and she would like to proceed forward with this plan of care. Has previously had SI injections that did provide 60% improvement lasting several months. I will also send in a refill of the diclofenac 75 mg twice daily. I have counseled the patient to discontinue her ibuprofen while she tries this medication and that she can take it with Tylenol for better pain improvement. Patient has also been counseled to take this medication with food to minimize GI upset. Patient will be scheduled for bilateral SI injections. Patient has been instructed to contact the clinic with any concerns before the next appointment. Dr. Lopez has reviewed this note and agrees with this plan of care. This note was dictated using voice recognition software and make contain errors or omissions. [facility] Disclaimer: The information contained in this section may have been updated after the patient was seen, as this information can be updated by other users. Medical History Anxiety Arthritis of hip Breast cancer COPD exacerbation Emphysema/COPD Hypertension Hypothyroid SVT (supraventricular tachycardia) Surgical History H/O thyroidectomy H/O tubal ligation History of cataract surgery History of colonoscopy History of laparoscopic cholecystectomy History of partial mastectomy of left breast History of total hip replacement Family History Daughter Cancer lung Social History Smoking Status: Current every day smoker tobacco type: cigarettes packs per day: 1 second hand exposure: Yes alcohol intake: never substance use type: denies use current occupational status: retired Travel in the last 8 weeks: None household members: spouse housing: house current occupational exposures/hazards: No caffeine: Yes
[2023-04-02 14:48] VITALS: BP 152/86; PULSE 66; RESP 18; O2SAT 95; BMI 21.2
== END | disposition home or self-care (01) ==
PROVIDERS: PCP Nurse Practitioner Family; Visit Provider Nurse Practitioner Family
DX: M54.16 Radiculopathy, lumbar region (principal); M46.1 Sacroiliitis, not elsewhere classified; G89.29 Other chronic pain; M70.60 Trochanteric bursitis, unspecified hip
CPT/HCPCS: 99212; G0463

== ENCOUNTER 2023-05-15 13:21 | Day surgery (SDC) | payer MEDICARE, SELFPAY ==
[2023-05-15 13:40] VITALS: BP 164/85; PULSE 60; RESP 18; TEMP 36.4; O2SAT 95; BMI 22.3
--- NOTE | 2023-05-15 13:53 | P.PCN_ITS ---
Procedure Date: 05/15/23 Time: 13:50 Anesthesiologist:: Alfredo Nice CRNA Complications:: None Pre-procedure Diagnosis:: Bilateral sacroiliitis Post-procedure Diagnosis:: Same. Indications for Procedure:: Patient is a very pleasant 77-year-old female comes our clinic today for bilateral sacroiliac joint injections. Patient reports bilateral posterior hip pain that she describes as constant, dull, aching. Patient describes having difficulty transitioning from sitting to standing. Ambulation increases posterior hip pain bilaterally. She rates her pain 7/10. Procedure Details:: Procedure: Bilateral sacroiliac joint injections under fluoroscopy Informed consent was obtained and the risks and benefits of the procedure were explained to the patient.~ The patient was taken to the procedure room and noninvasive monitors were placed including a noninvasive blood pressure cuff and pulse oximeter.~ The patient was placed prone on the procedure table. Both hips were cleansed using Betadine as a cleansing solution. C-arm fluoroscopy was used to view the right sacroiliac joint.~ The skin and subcutaneous tissues were anesthetized using lidocaine 1.5% and a 25-gauge needle.~ After this, a 22-gauge spinal needle was inserted under fluoroscopic guidance into the inferior aspect of the right sacroiliac joint.~ Omnipaque dye was injected and good spread was seen throughout the joint.~ After this, approximately 5 mL of bupivacaine, 0.25% and Depo-Medrol, 40 mg was incrementally injected into the right sacroiliac joint. We then moved to the left sacroiliac joint.~ The skin and subcutaneous tissues were anesthetized using lidocaine 1.5% and a 25-gauge needle.~ After this, a 22- gauge spinal needle was inserted under fluoroscopic guidance into the inferior aspect of the left sacroiliac joint.~ Omnipaque dye was injected and good spread was seen throughout the joint. After this, approximately 5 mL of bupivacaine, 0.25% and Depo-Medrol, 40 mg was incrementally injected into the left sacroiliac joint.~ The patient tolerated the procedure well with no complications. The patient was observed in the Pain Clinic and then was discharged home neurologically intact. Plan and Disposition:: Patient was discharged without incident.
[2023-05-15 14:00] VITALS: BP 142/67; PULSE 60; RESP 16; O2SAT 95
[2023-05-15] MEDS: methylPREDNISolone ACETATE 80MG/ML VIAL 80 MG (14:44)
[2023-05-15] MEDS: LIDOCAINE 1% 5ML PF VIAL 5 ML (14:44)
[2023-05-15 14:45] VITALS: BP 184/81; PULSE 62; RESP 18; O2SAT 97
== END 2023-05-15 14:00 | disposition home or self-care (01) ==
PROVIDERS: PCP Nurse Practitioner Family; Visit Provider Nurse Anesthetist, Certified Registered
DX: M46.1 Sacroiliitis, not elsewhere classified (principal)
CPT/HCPCS: 27096; 77002; G0260; J1040

== ENCOUNTER 2023-05-31 13:45 | Outpatient (POV) | payer MEDICARE, SELFPAY ==
--- NOTE | 2023-05-31 13:49 | A.OFFVIS_ITS ---
[facility] Pain Management SOAP Note Subjective:: Patient is a pleasant 77-year-old female that presents today for follow-up of bilateral SI injections on 05/15/2023. Today she rates her pain a 6 out of 10. Patient denies any new trauma or injury. She does state that she had significant improvement with her bilateral SI injections of at least 50%. Today she states her pain is more along her left hip with numbness and pain to touch. She does state the pain can interfere with her ability to perform activities of daily living such as cooking and cleaning. Patient has been recently to her breast cancer doctor and states everything went well and she is not scheduled to go back for another 3 months. At her last visit we did prescribe the patient diclofenac 75 mg twice a day. She denies any side effects from this medication and feels like it did help. She states she is planning on having her primary care provider continue this medication. She is prescribed alprazolam from an outside provider. Her Adalid has been reviewed and appropriate. Review of Systems: General: No recent weight changes, no fever, no sleep disturbances Respiratory: No cough, no shortness of air, no recurring pulmonary infections Cardiovascular/peripheral vascular: No chest pain, no palpitations, no edema, no shortness of breath Gastrointestinal: No new onset incontinence, normal bowel movements reported Genitourinary: No new onset incontinence Musculoskeletal: Left hip pain Psychiatric: [Normal mood/affect] Neurological: [Denies weakness in extremities], [denies balance issues] Objective:: Physical Exam: General: Alert and oriented x3, no acute distress, pleasant and cooperative Lungs: Respirations even and unlabored, symmetrical chest expansion Eyes: PERRL Musculoskeletal: Flexion and extension of lumbar [spine] somewhat guarded secondary to pain, [antalgic gait noted] point tenderness along left greater trochanteric bursa Neurological: Speech clear, no gross sensory deficit Assessment:: chronic left sacroiliitis and left trochanteric bursitis Plan:: Patient is experiencing worsening pain in and around her left hip with limited range of motion of her lumbar spine and point tenderness along her left greater trochanteric bursa. I have discussed with patient that she may benefit from bursa injection. Risk and benefits were discussed with patient and she would like to proceed forward with this plan of care. Patient will be scheduled for a left greater trochanteric bursa injection under fluoroscopy. Patient has been instructed to contact the clinic with any concerns before the next appointment. Dr. Lopez has reviewed this note and agrees with this plan of care. This note was dictated using voice recognition software and make contain errors or omissions. [facility] Disclaimer: The information contained in this section may have been updated after the patient was seen, as this information can be updated by other users. Medical History SVT (supraventricular tachycardia) Hypothyroid Emphysema/COPD Breast cancer Anxiety Hypertension COPD exacerbation Arthritis of hip Surgical History H/O tubal ligation History of partial mastectomy of left breast History of colonoscopy History of cataract surgery H/O thyroidectomy History of laparoscopic cholecystectomy History of total hip replacement Family History Daughter Cancer lung Social History Smoking Status: Current every day smoker tobacco type: cigarettes packs per day: 1 second hand exposure: Yes alcohol intake: never substance use type: denies use current occupational status: retired Travel in the last 8 weeks: None household members: spouse housing: house current occupational exposures/hazards: No caffeine: Yes
[2023-05-31 14:27] VITALS: BP 145/62; PULSE 62; RESP 18; O2SAT 96; BMI 21.2
== END 2023-05-31 23:59 ==
PROVIDERS: PCP Nurse Practitioner Family; Visit Provider Nurse Practitioner Family
DX: M46.1 Sacroiliitis, not elsewhere classified (principal); G89.29 Other chronic pain; M70.62 Trochanteric bursitis, left hip
CPT/HCPCS: 99212; G0463

== ENCOUNTER 2023-06-26 10:09 | Day surgery (SDC) | payer MEDICARE, SELFPAY ==
[2023-06-26 10:27] VITALS: BP 158/84; PULSE 53; RESP 16; O2SAT 95; BMI 21.5
--- NOTE | 2023-06-26 11:04 | P.PCN_ITS ---
Procedure Date: 06/26/23 Time: 11:00 Anesthesiologist:: Alfredo Nice CRNA Complications:: None Pre-procedure Diagnosis:: Left greater trochanteric bursitis Post-procedure Diagnosis:: Same Indications for Procedure:: Very pleasant 78-year-old female comes our clinic today for a left trochanteric bursa injection. Patient describes left lateral hip pain as constant, dull, aching, sharp, stabbing at times. Patient reports having difficulty lying on left side at any time due to pain. She rates her pain 7/10. Procedure Details:: Procedure:Left trochanteric bursa injection under fluoroscopy We then moved to the left trochanteric bursa.~ C-arm fluoroscopy was used to view the left greater trochanter.~ The skin and subcutaneous tissues overlying the left greater trochanter were anesthetized using lidocaine, 1.5% and a 25- gauge needle.~ After this, a 22-gauge spinal needle was inserted and advanced until it contacted the left greater trochanter.~ Dye was injected and good spread was seen throughout the left trochanteric bursa. After this, approximately 5 mL of bupivacaine, 0.25% and Depo-Medrol, 40 mg was incrementally injected into the left trochanteric bursa.~ The patient tolerated the procedure well with no complications. Plan and Disposition:: Patient was discharged without incident.
[2023-06-26] MEDS: LIDOCAINE 1% 5ML PF VIAL 5 ML (11:06)
[2023-06-26] MEDS: BUPIVACAINE 0.25% 10ML INJ 25 MG IJ (11:06)
[2023-06-26 11:07] VITALS: BP 140/76; PULSE 55; RESP 18; O2SAT 95
[2023-06-26] MEDS: methylPREDNISolone ACETATE 80MG/ML VIAL 80 MG (11:07)
[2023-06-26 11:08] VITALS: BP 140/76; PULSE 55; RESP 18; O2SAT 95
[2023-06-26 11:13] VITALS: BP 173/84; PULSE 52; RESP 18; O2SAT 95
== END 2023-06-26 11:13 | disposition home or self-care (01) ==
PROVIDERS: PCP Nurse Practitioner Family; Visit Provider Nurse Anesthetist, Certified Registered
DX: M70.62 Trochanteric bursitis, left hip (principal)
CPT/HCPCS: 20610; 77002; J1010

== ENCOUNTER 2023-07-12 10:25 | Outpatient (POV) | payer MEDICARE, SELFPAY ==
--- NOTE | 2023-07-12 11:17 | EXP.PAIN.SOA ---
[facility] Pain Management SOAP Note Subjective:: Patient is a pleasant 78-year-old female who presents today for follow-up left bursa injection on 06/26/2023. Today she rates her pain a 7 out of 10. Patient does state that the injection did not help however it did not last but a couple of weeks and she is back to her baseline. Patient does state that she just has a lot going on with her history of breast cancer and having to do routine follow-ups. Patient states that all of this has done well however she was recently during the breast cancer issues diagnosed with an abdominal aneurysm and a kidney aneurysm. Patient states that they did monitor this between last year at different times and it did grow. Patient states it has been since November when her last updated scan to see any additional change. Patient states that with all of her gynecological issues that she had talked to Dr. Yang about a hysterectomy however that she is too high risk and that he is not willing to proceed forward with this surgery. Patient states that she does occasionally still have pain between her shoulders however her chronic pain is still all they are within her low back. Patient does state that she is hoping with the weather changes noted will make a difference and help provide overall improvement. Patient just feels like she has a lot on her plate and it does affect her emotionally and physically. Patient states that she is still taking the diclofenac 75 mg twice a day that we initially prescribed and it is still helping. She states that she did end up having her family care doctor take over this prescription. Her Adalid has been reviewed and is appropriate. Review of Systems: General: No recent weight changes, no fever, no sleep disturbances Respiratory: No cough, no shortness of air, no recurring pulmonary infections Cardiovascular/peripheral vascular: No chest pain, no palpitations, no edema, no shortness of breath Gastrointestinal: No new onset incontinence, normal bowel movements reported Genitourinary: No new onset incontinence Musculoskeletal: Low back pain Psychiatric: [Normal mood/affect] Neurological: [Denies weakness in extremities], [denies balance issues] Objective:: Physical Exam: General: Alert and oriented x3, no acute distress, pleasant and cooperative Lungs: Respirations even and unlabored, symmetrical chest expansion Eyes: PERRL Musculoskeletal: Flexion and extension of lumbar [spine] somewhat guarded secondary to pain, [antalgic gait noted] Neurological: Speech clear, no gross sensory deficit Assessment:: Degenerative disc disease of lumbar spine with lumbar radiculopathy symptoms, chronic left sacroiliitis and left trochanteric bursitis Plan:: Patient continues to experience significant pain in multiple areas. I have discussed with the patient that she may benefit from additional injection therapy however with everything else she has going on that we will wait at this time. We will follow-up with her in 2 months for reevaluation of symptoms and plan of care. Patient has been instructed to contact the clinic with any concerns before the next appointment. Dr. Lopez has reviewed this note and agrees with this plan of care. This note was dictated using voice recognition software and make contain errors or omissions. [facility] Disclaimer: The information contained in this section may have been updated after the patient was seen, as this information can be updated by other users. Medical History SVT (supraventricular tachycardia) Hypothyroid Emphysema/COPD Breast cancer Anxiety Hypertension COPD exacerbation Arthritis of hip Surgical History H/O tubal ligation History of partial mastectomy of left breast History of colonoscopy History of cataract surgery H/O thyroidectomy History of laparoscopic cholecystectomy History of total hip replacement Family History Daughter Cancer lung Social History Smoking Status: Current every day smoker tobacco type: cigarettes packs per day: 1 second hand exposure: Yes alcohol intake: never substance use type: denies use current occupational status: retired Travel in the last 8 weeks: None household members: spouse housing: house current occupational exposures/hazards: No caffeine: Yes
[2023-07-12 11:37] VITALS: BP 152/88; PULSE 58; RESP 18; O2SAT 96; BMI 21.2
== END 2023-07-12 23:59 | disposition home or self-care (01) ==
LOC: SC.PAIN 10:26
PROVIDERS: PCP Nurse Practitioner Family; Visit Provider Nurse Practitioner Family
DX: M51.16 Intervertebral disc disorders with radiculopathy, lumbar region (principal); M46.1 Sacroiliitis, not elsewhere classified; G89.29 Other chronic pain; M70.62 Trochanteric bursitis, left hip
CPT/HCPCS: 99212; G0463

== ENCOUNTER 2023-09-17 10:53 | Outpatient (POV) | payer MEDICARE, SELFPAY ==
[2023-09-17 11:17] VITALS: BP 158/86; PULSE 50; RESP 16; O2SAT 95; BMI 20.7
--- NOTE | 2023-09-17 12:33 | EXP.PAIN.SOA ---
[facility] Disclaimer: The information contained in this section may have been updated after the patient was seen, as this information can be updated by other users. Medical History SVT (supraventricular tachycardia) Hypothyroid Emphysema/COPD Breast cancer Anxiety Hypertension COPD exacerbation Arthritis of hip Surgical History H/O tubal ligation History of partial mastectomy of left breast History of colonoscopy History of cataract surgery H/O thyroidectomy History of laparoscopic cholecystectomy History of total hip replacement Family History Daughter Cancer lung Social History Smoking Status: Current every day smoker tobacco type: cigarettes packs per day: 1 second hand exposure: Yes alcohol intake: never substance use type: denies use current occupational status: other Travel in the last 8 weeks: None household members: spouse housing: house current occupational exposures/hazards: No caffeine: Yes PM Subjective & Objective Subjective Subjective:: Patient is a pleasant 78-year-old female who presents today for follow-up. Today she rates her pain an 8 out of 10. Patient states her pain is all along her left hip as well as radiating across her low back. She describes this as a chronic achy, throbbing sensation that is worse with increased activity or certain movements such as bending or twisting. Patient does state the pain interferes with her ability perform activities of daily living such as cooking and cleaning. Patient does state that she is interested in injection therapy due to the worsening pain. Patient does continue to have a lot going on including a recent lump felt along her left breast during her routine follow-ups with Dr. Womack. She states that she is scheduled for mammogram coming up due to her history of breast cancer in the left. Patient does also states she continues to worry about her abdominal aneurysm and kidney aneurysm and that they have not been checked since November on . Patient does also states she continues to have gynecological issues and that she does need a hysterectomy however due to being high risk with her other health history that Dr. Yang is not wanting to proceed at this time. Patient is currently managed with diclofenac 75 mg twice a day from her PCP. Her Adalid has been reviewed and is appropriate. Review of Systems: General: No recent weight changes, no fever, no sleep disturbances Respiratory: No cough, no shortness of air, no recurring pulmonary infections Cardiovascular/peripheral vascular: No chest pain, no palpitations, no edema, no shortness of breath Gastrointestinal: No new onset incontinence, normal bowel movements reported Genitourinary: No new onset incontinence Musculoskeletal: Low back pain, left hip pain Psychiatric: [Normal mood/affect] Neurological: [Denies weakness in extremities], [denies balance issues] Pain at rest (0-10 scale): 8 Objective Objective:: Physical Exam: General: Alert and oriented x3, no acute distress, pleasant and cooperative Lungs: Respirations even and unlabored, symmetrical chest expansion Eyes: PERRL Musculoskeletal: Flexion and extension of lumbar [spine] somewhat guarded secondary to pain, [antalgic gait noted] positive Kemps test, point tenderness along the left greater trochanteric bursa Neurological: Speech clear, no gross sensory deficit Has patient had previous pain injection?: No Conservative treatment options previously tried: NSAIDS Length of treatment: Longer than 6 weeks, Home exercise plan Length of treatment: Longer than 6 weeks and Prescription medications Length of treatment: Longer than 6 weeks Meds Home Medications and Allergies Home Medications Medication Instructions Recorded Confirmed Type losartan 100 mg tablet 100 mg PO DAILY High blood pressure 09/29/21 09/17/23 History hydralazine 50 mg tablet 50 mg PO TID BLOOD PRESSURE 08/31/22 09/17/23 History citalopram 20 mg tablet 40 mg PO BID . 10/04/22 09/17/23 History nadolol 40 mg tablet 20 mg PO BID htn 10/04/22 09/17/23 History potassium 99 mg tablet 99 mg PO DAILY . 10/04/22 09/17/23 History oxyquinoline 0.025 %-sodium lauryl 1 ea vaginal .twice weekly . 10/10/22 09/17/23 History sulfate 0.01 % vaginal gel (Trimo-Carbone Jelly) alprazolam 1 mg tablet 1 mg PO TID 11/02/22 09/17/23 History cholecalciferol (vitamin D3) 125 125 mcg PO DAILY 11/02/22 09/17/23 History mcg (5,000 unit) capsule mecobalamin (vitamin B12) 2,500 2,500 mcg PO DIRECTED SUPPLIMENT 11/02/22 09/17/23 History mcg chewable tablet levothyroxine 175 mcg tablet 175 mcg PO DAILY THYROID 02/22/23 09/17/23 History diclofenac sodium 75 mg 75 mg PO BID #60 tabs 04/02/23 09/17/23 Rx tablet,delayed release acetaminophen 325 mg capsule 500 mg PO TID Pain 05/30/23 09/17/23 History (Tylenol) furosemide 40 mg tablet 20 mg PO BID Fluid 05/30/23 09/17/23 History New Prescriptions to Start Prescriptions: Allergies Allergy/AdvReac Type Severity Reaction Status Date / Time doxycycline Allergy Mild Verified 08/30/23 13:32 Antihistamines - Allergy Unknown Verified 08/30/23 13:32 Ethylenediamine latex [LATEX] Allergy Unknown UNKNOWN Verified 08/30/23 13:32 ketoprofen AdvReac Unknown I-RASH Verified 08/30/23 13:32 amoxicillin AdvReac Diarrhea Verified 08/30/23 13:32 steri strips Allergy Unknown Unknown Uncoded 08/30/23 13:32 allergy reaction Assessment and Plan *Assessment and plan (1) Degenerative disc disease, lumbar: Status: Acute Category: Medical Code(s): M51.36 - Other intervertebral disc degeneration, lumbar region (2) Greater trochanteric bursitis of left hip: Status: Acute Category: Medical Code(s): M70.62 - Trochanteric bursitis, left hip (3) Lumbar facet arthropathy: Status: Acute Category: Medical Code(s): M47.816 - Spondylosis without myelopathy or radiculopathy, lumbar region Plan Patient is experiencing worsening pain throughout her low back and left hip. Patient did state that her left hip was more bothersome than the low back at this time. Patient did have limited range of motion of her lumbar spine with a positive Kemps test and point tenderness along her left greater trochanteric bursa. I have discussed with patient that she may benefit from a left bursa injection as well as a lumbar medial branch block. Risk and benefits of both of these injections were explained to the patient and she would like to proceed forward with this plan of care. Patient has previously had the first injection that did provide at least 50% improvement lasting approximately 2 weeks. Patient did have overall improved function during that timeframe. I have counseled the patient that we will get her scheduled for the bursa injection first since that is more problematic and that at her appointment for that injection we can discuss about getting her scheduled for the lumbar medial branch block in the future. Patient is agreeable to this. Patient will be submitted for a left greater trochanteric bursa injection. Patient has been instructed to contact the clinic with any concerns before the next appointment. Dr. Lopez has reviewed this note and agrees with this plan of care. This note was dictated using voice recognition software and make contain errors or omissions.
== END 2023-09-17 23:59 | disposition home or self-care (01) ==
LOC: SC.PAIN 10:54
PROVIDERS: PCP Nurse Practitioner Family; Visit Provider Nurse Practitioner Family
DX: M51.36 Other intervertebral disc degeneration, lumbar region (principal); M70.62 Trochanteric bursitis, left hip; M47.816 Spondylosis without myelopathy or radiculopathy, lumbar region; G89.29 Other chronic pain
CPT/HCPCS: 99212; G0463

== ENCOUNTER 2023-10-09 13:10 | Day surgery (SDC) | payer MEDICARE, SELFPAY ==
[2023-10-09 13:15] VITALS: BP 180/90; PULSE 52; RESP 16; TEMP 36.8; O2SAT 94; BMI 20.5
[2023-10-09] MEDS: BUPIVACAINE 0.25% 10ML INJ 25 MG IJ (13:34)
[2023-10-09] MEDS: LIDOCAINE 1% 5ML PF VIAL 5 ML (13:34)
[2023-10-09] MEDS: methylPREDNISolone ACETATE 80MG/ML VIAL 80 MG (13:35)
[2023-10-09 13:40] VITALS: BP 177/82; PULSE 56; RESP 18; O2SAT 95
--- NOTE | 2023-10-09 13:42 | P.PCN_ITS ---
Procedure Date: 10/09/23 Time: 13:25 Anesthesiologist:: Alfredo Nice CRNA Complications:: None Pre-procedure Diagnosis:: Left trochanteric bursitis Post-procedure Diagnosis:: Same Indications for Procedure:: Patient is a pleasant 78-year-old female comes to clinic today for left trochanteric bursa injection. Patient has extreme point tenderness over the left lateral hip area. She reports not being able to lie on her left side due to the pain. She rates pain 7/10. Procedure Details:: Procedure:Left trochanteric bursa injection under fluoroscopy We then moved to the left trochanteric bursa.~ C-arm fluoroscopy was used to view the left greater trochanter.~ The skin and subcutaneous tissues overlying the left greater trochanter were anesthetized using lidocaine, 1.5% and a 25- gauge needle.~ After this, a 22-gauge spinal needle was inserted and advanced until it contacted the left greater trochanter.~ Dye was injected and good spread was seen throughout the left trochanteric bursa. After this, approximately 5 mL of bupivacaine, 0.25% and Depo-Medrol, 40 mg was incrementally injected into the left trochanteric bursa.~ The patient tolerated the procedure well with no complications. Plan and Disposition:: Patient was discharged without incident.
== END 2023-10-09 13:42 | disposition home or self-care (01) ==
PROVIDERS: PCP Nurse Practitioner Family; Visit Provider Nurse Anesthetist, Certified Registered
DX: M25.552 Pain in left hip (principal); M70.62 Trochanteric bursitis, left hip
CPT/HCPCS: 20610; 77002; J1010

== ENCOUNTER 2023-10-24 13:57 | Outpatient (CLI) | payer MEDICARE, MEDICAID, SELFPAY ==
--- NOTE | 2023-10-24 14:01 | MM_ITS ---
PROCEDURE INFORMATION: Exam: US Right Breast, Complete MG Right Diagnostic Breast Tomosynthesis Exam date and time: 10/24/2023 1:52 PM Age: 78 years old Clinical indication: Region of palpable concern in the right breast. TECHNIQUE: Imaging protocol: Complete ultrasound of all four quadrants of the right breast and the retroareolar regions, including ultrasound of the axilla when performed. Right Diagnostic tomosynthesis and 2D mammography including computer-aided detection (CAD) when performed. Unilateral or bilateral exam. COMPARISON: 1. MG MM DIG MAMM BI DX W/CAD 01/04/2023 1:09 PM 2. MG MM DIG MAMM BI DX W/CAD 01/13/2022 2:03 PM FINDINGS: MAMMOGRAPHY: Breast composition: There are scattered areas of fibroglandular density. Breast mammogram findings: Right breast full field and spot-compression tomosynthesis views were obtained. A radiopaque marker was placed over the region of palpable concern in the upper-outer quadrant. Mass: There is an irregular high density mass localizing to the site of palpable concern at approximately 10 o'clock, 7 cm from the nipple in the right breast measuring roughly 1 cm Architectural distortion: None. Calcifications: No suspicious calcifications. Asymmetric density: None. Skin thickening: None. Axillary adenopathy: None. ULTRASOUND: Breast ultrasound findings: Right breast ultrasound: There is an irregular hypoechoic mass measuring 1.1 x 0.9 x 1.2 cm at 10 o'clock 7 cm from the nipple corresponding to the site of palpable concern. There is a single borderline abnormal axillary lymph node without visible fatty sujata. Elsewhere, there are no suspicious masses in the visualized right breast. IMPRESSION: Suspicious right breast mass. Recommend ultrasound-guided needle biopsy. ASSESSMENT: BI-RADS Category 4: Suspicious.
== END 2023-10-24 23:59 | disposition home or self-care (01) ==
LOC: RAD 13:57
PROVIDERS: PCP Nurse Practitioner Family; Visit Provider Internal Medicine Medical Oncology
DX: R92.8 Other abnormal and inconclusive findings on diagnostic imaging of breast (principal); C50.912 Malignant neoplasm of unspecified site of left female breast
CPT/HCPCS: 76641; 77061; 77065; G0279

== ENCOUNTER 2023-10-25 11:13 | Outpatient (POV) | payer MEDICARE, MEDICAID, SELFPAY ==
[2023-10-25 11:22] VITALS: BP 193/75; PULSE 60; RESP 16; O2SAT 93; BMI 20.5
--- NOTE | 2023-10-25 11:52 | EXP.PAIN.SOA ---
[facility] Disclaimer: The information contained in this section may have been updated after the patient was seen, as this information can be updated by other users. Medical History SVT (supraventricular tachycardia) Hypothyroid Emphysema/COPD Breast cancer Anxiety Hypertension COPD exacerbation Arthritis of hip Surgical History H/O tubal ligation History of partial mastectomy of left breast History of colonoscopy History of cataract surgery H/O thyroidectomy History of laparoscopic cholecystectomy History of total hip replacement Family History Daughter Cancer lung Social History Smoking Status: Current every day smoker tobacco type: cigarettes packs per day: 1 second hand exposure: Yes alcohol intake: never substance use type: denies use current occupational status: retired Travel in the last 8 weeks: None household members: spouse housing: house current occupational exposures/hazards: No caffeine: Yes PM Subjective & Objective Subjective Subjective:: Patient is a pleasant 78-year-old female who presents today for follow-up of left trochanteric bursa injection on 10/09/2023. Today she rates her pain a 7 out of 10. She denies any new trauma or injury. She does state that she got about a week of significant relief however she states she is basically back at her baseline. Patient states the pain is fairly constant and that she does have it throughout multiple areas including her low back. Patient does state that at home she is not able to do many ADLs such as cooking or cleaning or even making the bed due to the worsening pain. She does have to stop and sit down and take a break. Patient does state today that her blood pressure is increased due to her increased anxiety. Patient is on medication for this and does state that her PCP recently added an additional medication. Patient states that yesterday she had a very busy day and had a updated mammogram and ultrasound and so her pain is a little worse today on top of it. Patient is prescribed diclofenac 75 mg twice a day from her PCP. Her Adalid has been reviewed and is appropriate. Review of Systems: General: No recent weight changes, no fever, no sleep disturbances Respiratory: No cough, no shortness of air, no recurring pulmonary infections Cardiovascular/peripheral vascular: No chest pain, no palpitations, no edema, no shortness of breath Gastrointestinal: No new onset incontinence, normal bowel movements reported Genitourinary: No new onset incontinence Musculoskeletal: Low back pain, bursa pain Psychiatric: [Normal mood/affect] Neurological: [Denies weakness in extremities], [denies balance issues] Pain at rest (0-10 scale): 7 Objective Objective:: Physical Exam: General: Alert and oriented x3, no acute distress, pleasant and cooperative Lungs: Respirations even and unlabored, symmetrical chest expansion Eyes: PERRL Musculoskeletal: Flexion and extension of lumbar [spine] somewhat guarded secondary to pain, [antalgic gait noted] Neurological: Speech clear, no gross sensory deficit Has patient had previous pain injection?: Yes Percent improvement in pain since last injection: 50% 1 week Conservative treatment options previously tried: Home exercise plan Length of treatment: Longer than 6 weeks Meds Home Medications and Allergies Home Medications ?Medication ?Instructions ?Recorded ?Confirmed ?Type losartan 100 mg tablet 100 mg PO DAILY High blood pressure 09/29/21 10/25/23 History hydralazine 50 mg tablet 50 mg PO TID BLOOD PRESSURE 08/31/22 10/25/23 History citalopram 20 mg tablet 40 mg PO BID . 10/04/22 10/25/23 History nadolol 40 mg tablet 20 mg PO BID htn 10/04/22 10/25/23 History potassium 99 mg tablet 99 mg PO DAILY . 10/04/22 10/25/23 History oxyquinoline 0.025 %-sodium lauryl 1 ea vaginal .twice weekly . 10/10/22 10/25/23 History sulfate 0.01 % vaginal gel (Trimo-Carbone Jelly) alprazolam 1 mg tablet 1 mg PO TID 11/02/22 10/25/23 History cholecalciferol (vitamin D3) 125 125 mcg PO DAILY 11/02/22 10/25/23 History mcg (5,000 unit) capsule mecobalamin (vitamin B12) 2,500 2,500 mcg PO DIRECTED SUPPLIMENT 11/02/22 10/25/23 History mcg chewable tablet levothyroxine 175 mcg tablet 175 mcg PO DAILY THYROID 02/22/23 10/25/23 History diclofenac sodium 75 mg 75 mg PO BID #60 tabs 04/02/23 10/25/23 Rx tablet,delayed release acetaminophen 325 mg capsule 500 mg PO TID Pain 05/30/23 10/25/23 History (Tylenol) furosemide 40 mg tablet 20 mg PO BID Fluid 05/30/23 10/25/23 History New Prescriptions to Start Prescriptions: Allergies Allergy/AdvReac Type Severity Reaction Status Date / Time doxycycline Allergy Mild Verified 10/16/23 14:29 Antihistamines - Allergy Unknown Verified 10/16/23 14:29 Ethylenediamine latex [LATEX] Allergy Unknown UNKNOWN Verified 10/16/23 14:29 ketoprofen AdvReac Unknown I-RASH Verified 10/16/23 14:29 amoxicillin AdvReac Diarrhea Verified 10/16/23 14:29 steri strips Allergy Unknown Unknown Uncoded 10/16/23 14:29 allergy reaction Assessment and Plan *Assessment and plan (1) Lumbar facet arthropathy: Status: Acute Category: Medical Code(s): M47.816 - Spondylosis without myelopathy or radiculopathy, lumbar region (2) Greater trochanteric bursitis of left hip: Status: Acute Category: Medical Code(s): M70.62 - Trochanteric bursitis, left hip (3) Degenerative disc disease, lumbar: Status: Acute Category: Medical Code(s): M51.36 - Other intervertebral disc degeneration, lumbar region Plan Patient continues to experience significant pain throughout her low back and hips. Patient does also have a significant health history with breast cancer and does have other gynecological issues however is unable to have surgery due to being high risk. I have discussed with patient that I do think it would be beneficial to try some pain medications to see if this would help improve her day-to-day pain. Patient is in agreement with this. I will send in [place] 5 mg twice a day and provide a 2-week supply of this medication. Patient does state that she has been on the Lortab in the past and had no side effects. Patient will return to clinic in 2 weeks for reevaluation of symptoms and plan of care. Risks and benefits of the medication have been explained in detail to the patient. The patient does understand the risk of dependence on the medication when given over a prolonged period. Patient has been advised of risks of oversedation with the prescribed medication. Narcan has been offered to the paitent in the event of oversedation. Patient has been advised that a family member should also be educated regarding administration of Narcan. The patient has been advised to consult with his/her primary care provider and pharmacist regarding drug-drug interaction of medications currently prescribed. Patient has been prescribed a controlled substance after being counseled on the medication, medication safety, and possible side effects. Opioid contract was reviewed and signed by the patient, and that they have agreed to all of the terms set forth by our compliance program. Patient has been instructed to contact the clinic with any concerns before the next appointment. Dr. Lopez has reviewed this note and agrees with this plan of care. This note was dictated using voice recognition software and make contain errors or omissions.
== END 2023-10-25 23:59 | disposition home or self-care (01) ==
PROVIDERS: Visit Provider Nurse Practitioner Family
DX: M47.816 Spondylosis without myelopathy or radiculopathy, lumbar region (principal); M70.62 Trochanteric bursitis, left hip; M51.36 Other intervertebral disc degeneration, lumbar region; F17.210 Nicotine dependence, cigarettes, uncomplicated; Z73.89 Other problems related to life management difficulty; Z79.899 Other long term (current) drug therapy
CPT/HCPCS: 99212; G0463

== ENCOUNTER 2023-11-05 13:00 | Outpatient (POV) | payer MEDICARE, MEDICAID, SELFPAY ==
[2023-11-05 13:18] VITALS: BP 122/55; PULSE 54; RESP 18; O2SAT 99; BMI 20.5
--- NOTE | 2023-11-05 14:38 | EXP.PAIN.SOA ---
[facility] Disclaimer: The information contained in this section may have been updated after the patient was seen, as this information can be updated by other users. Medical History SVT (supraventricular tachycardia) Hypothyroid Emphysema/COPD Breast cancer Anxiety Hypertension COPD exacerbation Arthritis of hip Surgical History H/O tubal ligation History of partial mastectomy of left breast History of colonoscopy History of cataract surgery H/O thyroidectomy History of laparoscopic cholecystectomy History of total hip replacement Family History Daughter Cancer lung Social History Smoking Status: Current every day smoker tobacco type: cigarettes packs per day: 1 second hand exposure: Yes alcohol intake: never substance use type: denies use current occupational status: retired Travel in the last 8 weeks: None household members: spouse housing: house current occupational exposures/hazards: No caffeine: Yes PM Subjective & Objective Subjective Subjective:: Patient is a pleasant 78-year-old female who presents today for medication follow-up. Patient rates her pain today a 6 out of 10. She denies any new trauma or injury. She does state that the pain medication we sent in is helping. She was prescribed [place] 5 mg twice a day as needed. Patient does state that she felt like the 5 mg was a little bit too strong for her and that she did better with breaking it in half. Patient denies any side effects. Patient does also state that she is scheduled to see her PCP coming up and that because where she is not charged a co-pay and that she does see her primary care more frequently is going to request if she can take over this medication. Patient is also prescribed diclofenac. Her Adalid has been reviewed and is appropriate. Review of Systems: General: No recent weight changes, no fever, no sleep disturbances Respiratory: No cough, no shortness of air, no recurring pulmonary infections Cardiovascular/peripheral vascular: No chest pain, no palpitations, no edema, no shortness of breath Gastrointestinal: No new onset incontinence, normal bowel movements reported Genitourinary: No new onset incontinence Musculoskeletal: Low back pain Psychiatric: [Normal mood/affect] Neurological: [Denies weakness in extremities], [denies balance issues] Pain at rest (0-10 scale): 6 Objective Objective:: Physical Exam: General: Alert and oriented x3, no acute distress, pleasant and cooperative Lungs: Respirations even and unlabored, symmetrical chest expansion Eyes: PERRL Musculoskeletal: Flexion and extension of lumbar [spine] somewhat guarded secondary to pain, [antalgic gait noted] Neurological: Speech clear, no gross sensory deficit Has patient had previous pain injection?: No Conservative treatment options previously tried: Home exercise plan Length of treatment: Longer than 6 weeks Meds Home Medications and Allergies Home Medications ?Medication ?Instructions ?Recorded ?Confirmed ?Type losartan 100 mg tablet 100 mg PO DAILY High blood pressure 09/29/21 11/05/23 History hydralazine 50 mg tablet 50 mg PO TID BLOOD PRESSURE 08/31/22 11/05/23 History citalopram 20 mg tablet 40 mg PO BID . 10/04/22 11/05/23 History nadolol 40 mg tablet 20 mg PO BID htn 10/04/22 11/05/23 History potassium 99 mg tablet 99 mg PO DAILY . 10/04/22 11/05/23 History oxyquinoline 0.025 %-sodium lauryl 1 ea vaginal .twice weekly . 10/10/22 11/05/23 History sulfate 0.01 % vaginal gel (Trimo-Carbone Jelly) alprazolam 1 mg tablet 1 mg PO TID 11/02/22 11/05/23 History cholecalciferol (vitamin D3) 125 125 mcg PO DAILY 11/02/22 11/05/23 History mcg (5,000 unit) capsule mecobalamin (vitamin B12) 2,500 2,500 mcg PO DIRECTED SUPPLIMENT 11/02/22 11/05/23 History mcg chewable tablet levothyroxine 175 mcg tablet 175 mcg PO DAILY THYROID 02/22/23 11/05/23 History diclofenac sodium 75 mg 75 mg PO BID #60 tabs 04/02/23 11/05/23 Rx tablet,delayed release acetaminophen 325 mg capsule 500 mg PO TID Pain 05/30/23 11/05/23 History (Tylenol) furosemide 40 mg tablet 20 mg PO BID Fluid 05/30/23 11/05/23 History hydrocodone 5 mg-acetaminophen 325 1 tab PO BID #28 tabs 10/25/23 11/05/23 Rx mg tablet New Prescriptions to Start Prescriptions: Allergies Allergy/AdvReac Type Severity Reaction Status Date / Time doxycycline Allergy Mild Verified 10/30/23 13:45 Antihistamines - Allergy Unknown Verified 10/30/23 13:45 Ethylenediamine latex [LATEX] Allergy Unknown UNKNOWN Verified 10/30/23 13:45 ketoprofen AdvReac Unknown I-RASH Verified 10/30/23 13:45 amoxicillin AdvReac Diarrhea Verified 10/30/23 13:45 steri strips Allergy Unknown Unknown Uncoded 10/30/23 13:45 allergy reaction Assessment and Plan *Assessment and plan (1) Degenerative disc disease, lumbar: Status: Acute Category: Medical Code(s): M51.36 - Other intervertebral disc degeneration, lumbar region Plan I did review over at length with the patient and her 2 daughters additional injection therapy options as well as possible spinal cord stimulator or pump trial due to her chronic pain history and history of breast cancer. Patient did get significant relief with her injections however over time they are not as effective as what they were initially. Patient was counseled for her to let us know if she would like additional injections that it is up to her based off how much relief they do provide. Patient was also counseled to just let our office know if her primary care is not able to take over this pain medication prescription. Patient agrees with this plan of care. Patient has been instructed to contact the clinic with any concerns before the next appointment. Dr. Lopez has reviewed this note and agrees with this plan of care. This note was dictated using voice recognition software and make contain errors or omissions. All injections are used with Lidocaine or Bupivacaine and Depo Medrol.
== END 2023-11-05 23:59 | disposition home or self-care (01) ==
LOC: SC.PAIN 13:01
PROVIDERS: PCP Nurse Practitioner Family; Visit Provider Nurse Practitioner Family
DX: M51.36 Other intervertebral disc degeneration, lumbar region (principal); F17.210 Nicotine dependence, cigarettes, uncomplicated; Z79.899 Other long term (current) drug therapy
CPT/HCPCS: 99212; G0463

== ENCOUNTER 2023-11-08 04:49 | Inpatient (IN) | payer MEDICARE, MEDICAID, SELFPAY ==
[2023-11-08] VITALS (12 sets, daily range): BP systolic 109–161; BP diastolic 68–90; PULSE 53–91; RESP 14–22; TEMP 36.4–37.1; O2SAT 90–96; BMI 20.5
--- NOTE | 2023-11-08 05:03 | CT_ITS ---
PROCEDURE INFORMATION: Exam: CTA Chest With Contrast Exam date and time: 11/08/2023 5:47 AM Age: 78 years old Clinical indication: Shortness of breath; Additional info: SOA, fluid overload, recent recurrence of breast c TECHNIQUE: Imaging protocol: Computed tomographic angiography of the chest with contrast. Exam focused on the arteries. 3D rendering (Not supervised by radiologist): MIP and/or 3D reconstructed images were created by the technologist. Radiation optimization: All CT scans at this facility use at least one of these dose optimization techniques: automated exposure control; mA and/or kV adjustment per patient size (includes targeted exams where dose is matched to clinical indication); or iterative reconstruction. Contrast material: ISOVUE; Contrast volume: 70 ml; Contrast route: INTRAVENOUS (IV); COMPARISON: 1. CT CHEST WO/W CON 11/21/2022 9:[address] CHEST WO/W CON 05/09/2022 10:47 AM FINDINGS: Pulmonary arteries: No evidence of PE. Aorta: Stable appearing partially imaged infrarenal abdominal aortic aneurysm measuring about 4 cm. The thoracic aorta is unremarkable. Lungs: Centrilobular emphysema in both upper lobes. Trace subsegmental atelectasis in the right middle lobe. There is an old calcified granuloma in the left upper lobe. Pleural spaces: Small left pleural effusion. Heart: Mild cardiomegaly. No pericardial effusion. Elevated right heart pressures. There is reflux of IV contrast into the IVC and hepatic veins. Coronary arteries: Extensive calcified coronary artery disease. Lymph nodes: Multiple small old calcified left hilar lymph nodes and small calcified subcarinal lymph nodes. Several tiny noncalcified pulmo mediastinal lymph nodes, similar in appearance to previous imaging. Adrenal glands: Stable appearing right adrenal adenoma measuring about 2 cm. Bones/joints: There is a rotatory dextroscoliosis of the upper lumbar spine. No acute osseous lesions identified. There are multilevel chronic degenerative changes throughout the visualized spine. Soft tissues: Unremarkable. Other findings: RV/LV= 1.23 (mildly elevated). IMPRESSION: 1. No evidence of PE. 2. The thoracic aorta is unremarkable. There is a partially imaged 4 cm infrarenal abdominal aortic aneurysm. 3. Centrilobular emphysema. 4. Calcified coronary artery disease. 5. Right heart strain with reflux of IV contrast into the IVC and hepatic veins and the RV/LV ratio is elevated. 6. Small left pleural effusion. 7. 4 cm infrarenal abdominal aortic aneurysm (partially imaged). COMMENTS: The presence of pulmonary emphysema on CT is an independent risk factor for lung cancer. In the absence of a history or active diagnosis of lung cancer, it is recommended that this patient with emphysema be evaluated for enrollment in a low dose CT lung cancer screening program.
--- NOTE | 2023-11-08 05:03 | XR_ITS ---
FINAL REPORT CLINICAL HISTORY: soa, fluid overload COMPARISON: 02/04/2022 FINDINGS: Mild cardiomegaly is present with unfolding of the aorta. The mediastinum is normal. There is no focal infiltrate or edema. Mild scarring is present in the lung bases. There are no pleural effusions. There is no pneumothorax. There is no osseous abnormality. IMPRESSION: No acute cardiopulmonary process Reviewed, Interpreted and Dictated by Deandre Rich MD Transcribed by Ekta Perez Authenticated and . [facility]
--- NOTE | 2023-11-08 05:05 | ED_ITS ---
Discharge Plan Disposition Patient Disposition: Admitted Clinical Impressions Clinical Impression: Acute hypoxic respiratory failure, Fluid overload, Elevated brain natriuretic peptide (BNP) level, Hyponatremia Discharge ED Provider: Marla Paniagua General Chief Complaint: Shortness of Breath/Dyspnea Stated Complaint: SOA Time Seen by Provider: 11/08/23 04:50 Mode of Arrival: EMS Source of Information: Patient and EMS Limitations: No Limitations Description of Symptoms (Recalled from ER Triage Doc. by RN): pt reports she has been expierncing increased shortness of breath for a couple of days and this morning it became so the family called EMS. patient reports a productive cough with white sputum History of Present Illness HPI narrative: 78-year-old female presents to the ER with increasing shortness of breath over the last few days. This morning it was so bad that family called EMS. Patient is reporting a productive cough with white, frothy sputum. She does not report missing any of her medications including her furosemide. Patient does have a history of COPD diagnosis but does not take inhalers or breathing treatments at home. She denies fevers. Patient reports severe shortness of breath with exertion. Denies any chest pain. EMS reports twelve-lead ECG without findings of STEMI, they also report that when they arrived on scene patient was saturating 65% and smoking a cigarette. She was attempting to refuse transport but family talked her into coming to the ER. Patient was transported on nonrebreather with improving oxygen saturation. Patient does report her legs are more swollen than they typically are. She reports her breast cancer was recently found to be back in the right breast and she feels like since that time everything has fallen apart including her breathing. This was identified approximately 1 month ago when she follows up with oncology next week. Patient does not wear oxygen at baseline. Related Data Home Medications ?Medication ?Instructions ?Recorded ?Confirmed losartan 100 mg tablet 100 mg PO DAILY High blood pressure 09/29/21 11/08/23 hydralazine 50 mg tablet 50 mg PO TID BLOOD PRESSURE 08/31/22 11/08/23 citalopram 20 mg tablet 40 mg PO BID . 10/04/22 11/08/23 nadolol 40 mg tablet 20 mg PO BID htn 10/04/22 11/08/23 potassium 99 mg tablet 99 mg PO DAILY . 10/04/22 11/08/23 alprazolam 1 mg tablet 0.5 mg PO QID 11/02/22 11/08/23 cholecalciferol (vitamin D3) 125 125 mcg PO DAILY 11/02/22 11/08/23 mcg (5,000 unit) capsule mecobalamin (vitamin B12) 2,500 2,500 mcg PO DIRECTED SUPPLIMENT 11/02/22 11/08/23 mcg chewable tablet acetaminophen 325 mg capsule 500 mg PO TID Pain 05/30/23 11/05/23 (Tylenol) furosemide 40 mg tablet 20 mg PO BID Fluid 05/30/23 11/08/23 furosemide 40 mg tablet 20 mg PO BID 11/08/23 11/08/23 levothyroxine 175 mcg tablet 150 mcg PO DAILY 11/08/23 11/08/23 Previous Rx's ?Medication ?Instructions ?Recorded diclofenac sodium 75 mg 75 mg PO BID #60 tabs 04/02/23 tablet,delayed release hydrocodone 5 mg-acetaminophen 325 1 tab PO BID #28 tabs 10/25/23 mg tablet Allergies Allergy/AdvReac Type Severity Reaction Status Date / Time doxycycline Allergy Mild Verified 10/30/23 13:45 Antihistamines - Allergy Unknown Verified 10/30/23 13:45 Ethylenediamine diclofenac Allergy Unknown Unknown Verified 11/08/23 05:09 allergy reaction latex [LATEX] Allergy Unknown Rash Verified 11/08/23 05:09 duloxetine AdvReac Unknown Fatigued Verified 11/08/23 05:09 ketoprofen AdvReac Unknown I-RASH Verified 10/30/23 13:45 amoxicillin AdvReac Diarrhea Verified 10/30/23 13:45 steri strips Allergy Unknown Unknown Uncoded 10/30/23 13:45 allergy reaction PFSH PFSH Disclaimer: The information contained in this section may have been updated after the patient was seen, as this information can be updated by other users. Medical History SVT (supraventricular tachycardia) Hypothyroid Emphysema/COPD Breast cancer Anxiety Hypertension COPD exacerbation Arthritis of hip Surgical History H/O tubal ligation History of partial mastectomy of left breast History of colonoscopy History of cataract surgery H/O thyroidectomy History of laparoscopic cholecystectomy History of total hip replacement Family History Daughter Cancer lung Social History Smoking Status: Current every day smoker tobacco type: cigarettes packs per day: 1 second hand exposure: Yes alcohol intake: never substance use type: denies use current occupational status: retired Travel in the last 8 weeks: None household members: spouse housing: house current occupational exposures/hazards: No caffeine: Yes ROS Obtained: Yes All systems reviewed & no additional complaints except as documented Positive ROS per HPI Physical Exam General General appearance: alert and in no apparent distress Comment: Chronically ill-appearing Head Head exam: atraumatic and normocephalic Eye Eye exam: Present PERRL and EOMI ENT ENT exam: Present mucous membranes moist Neck Neck exam: Present normal inspection and full ROM Chest Chest inspection: Present symmetric chest wall rise; Absent tenderness Respiratory Respiratory exam: Present respiratory distress (Tachypneic, increased work of breathing, poor oxygen saturation) and prolonged expiratory phase; Absent normal lung sounds bilaterally (Severely diminished breath sounds throughout with rales at bilateral bases) or stridor Cardiovascular Cardiovascular exam: Present regular rate and normal rhythm Abdominal Exam Abdominal exam: Present soft; Absent distention or tenderness Extremities Exam Extremities exam: Present full ROM and edema (+3 pitting edema in bilateral lower extremities) Neurological Exam Neurological exam: Present alert and oriented X3; Absent motor sensory deficit Psychiatric Psychiatric exam: Present normal affect and normal mood Skin Skin exam: Present warm and dry HEART Score HEART Score HEART Score assessment performed?: Yes History (anamnesis): Slightly suspicious ECG: Non-specific disturbance Age: >65 years Risk factors: 1-2 risk factors Troponin: </= normal limit HEART Score: 4 Procedures Miscellaneous Procedure Procedure Performed: Limited lung ultrasound A focused ultrasound exam of the pleural spaces was performed to evaluate for pneumothorax, pulmonary edema, pleural effusion and/or consolidation. The ultrasound was performed with the following indications, as noted in the H&P: Shortness of breath, hypoxia Identified structures: Bilateral thoracic cavities were examined. Findings: Lung sliding: -Present bilaterally B-lines: Present at bilateral bases Pleural effusion: -Absent bilateral Consolidation: Absent bilaterally Impression: No pneumothorax, pleural effusion, or consolidation however B-lines are present at the bilateral bases Images were saved to permanent archive The study was technically adequate CPT 24677-59 This study was performed by me, and I personally interpreted all images/videos. Based on my clinical judgement, these images were adequate and did not necessitate further imaging. Critical Care Critical Care Time Critical Care Time: Yes Attestation: On 11/08/23, the high probability of a clinically significant, sudden or life threatening deterioration of the following system(s) required my full and direct attention, intervention and personal management. The time I documented below is in addition to time spent performing reported procedures but includes the following listed in this critical care notation. Total Time Total Critical Care Time: 35 Medical Decision Making Medical Records Medical records reviewed: Yes I reviewed the patient's medical records. MR Comment: Patient was seen by Dr. Womack on 10/30/2023. Her oncology history includes an initial finding of ER positive breast cancer at the end of 2021. Patient had discontinued adjuvant tamoxifen in November 2022 secondary to side effects. Patient was found to have a palpable abnormality in right upper outer quadrant of the breast. Planning for ultrasound-guided biopsy of this area. Adalid Inquiry Pt receiving controlled substance: No Vital Signs Vital Signs: 11/08/23 04:58 11/08/23 05:02 11/08/23 05:04 Temperature 97.6 F 97.6 F Temperature Source Oral Pulse Rate 67 63 Pulse Rate [Right] 67 Respiratory Rate 22 22 Blood Pressure 161/90 H Blood Pressure [Right Arm] 161/90 H Blood Pressure Mean [Right Arm] 113 02 Sat by Pulse Oximetry 91 L 91 L Oxygen Delivery Method Room Air Room Air 11/08/23 05:04 Temperature Temperature Source Pulse Rate 57 L Pulse Rate [Right] Respiratory Rate Blood Pressure Blood Pressure [Right Arm] Blood Pressure Mean [Right Arm] 02 Sat by Pulse Oximetry Oxygen Delivery Method Lab Data Labs: Lab Results 11/08/23 04:50: WBC 5.4, RBC 4.04 L, Hgb 12.8, Hct 40.6, MCV 100.3 H, MCH 31.7 H , MCHC 31.6 L, RDW 14.8, Plt Count 270, MPV 7.8, Neut % (Auto) 75.5, Lymph % (Auto) 16.3, [place] % (Auto) 6.5, Eos % (Auto) 1.1, Baso % (Auto) 0.7, Neut # (Auto) 4.1, Lymph # (Auto) 0.9, [place] # (Auto) 0.4, Eos # (Auto) 0.1, Baso # (Auto) 0.0, PT 11.2, INR 1.00, Sodium 124 L, Potassium 3.5, Chloride 89 L, C arbon Dioxide 34 H, Anion Gap 4.5 L, BUN 12, Creatinine 0.50 L, Estimated Creat Clear 37, Estimated GFR 120, Est GFR ( Amer) 145, Glucose 130 H, Calcium 7.9 L, Total Bilirubin 0.5, AST 97 H, ALT 158 H, Alkaline Phosphatase 86, Troponin I < 0.01, NT-Pro-B Natriuret Pep 3580 H, Total Protein 5.9 L, Albumin 3.5, Globulin 2.4, Albumin/Globulin Ratio 1.5 11/08/23 05:05: VBG pH 7.36, VBG pCO2 59.9 H, VBG pO2 24.9 L, VBG HCO3 32.7 H, V BG Total CO2 34.5 H, VBG O2 Saturation 45.1 L, VBG Base Excess 7.2 H, VBG Lactic Acid 1.2 11/08/23 04:50 11/08/23 04:50 Response Orders (Tests/Meds): ED MEDICATIONS Discontinued Medications Generic Name Dose Route Start Last Admin Trade Name Freq PRN Reason Stop Dose Admin Albuterol/Ipratropium 9 ml 11/08/23 05:08 11/08/23 05:11 Ipratropium/Albuterol 3 Ml Neb IH 11/08/23 05:09 9 ml ONCE ONE Administration Iopamidol 70 ml 11/08/23 05:52 11/08/23 05:53 Iopamidol-370 (76%);100ml Bottle IV 11/08/23 05:53 70 ml ONCE ONE Administration Methylprednisolone Sodium Succinate 125 mg 11/08/23 06:00 11/08/23 06:08 Methylprednisolone Sod Succ 125mg Vial IV 11/08/23 06:01 125 mg ONCE ONE Administration Sodium Chloride 50 ml 11/08/23 05:52 11/08/23 05:53 0.9 % Sodium Chloride 50 Ml Vial IV 11/08/23 05:53 50 ml ONCE ONE Administration Sodium Chloride 10 ml 11/08/23 05:52 11/08/23 05:53 Sodium Chloride 0.9% 10ml Syr (Rad Only) IV 11/08/23 05:53 10 ml ONCE ONE Administration ORDERS Category Date Time Status CT angio chest PE protocol Stat Cat Scan 11/08/23 05:03 Taken POCUS Point of Care (ER Only) Stat Exams 11/08/23 04:52 Completed XR chest portable Stat Exams 11/08/23 05:03 Taken Complete Blood Count Auto Diff Stat Lab 11/08/23 04:50 Completed Comprehensive Metabolic Panel Stat Lab 11/08/23 04:50 Completed NT Pro Brain Natriuretic Pep. Stat Lab 11/08/23 04:50 Completed Prothrombin Time INR Stat Lab 11/08/23 04:50 Completed Troponin I Q3H Lab 11/08/23 04:50 Completed Troponin I Q3H Lab 11/08/23 08:15 Ordered Troponin I Q3H Lab 11/08/23 11:15 Ordered VBG [Venous Blood Gas] Stat RT 11/08/23 05:05 Completed MDM Narrative Medical Decision Narrative: In summary, this 78-year-old female presents to the emergency department today with shortness of breath, cough productive of frothy white sputum, significant peripheral edema and shortness of breath with exertion. On initial evaluation patient is hemodynamically stable and afebrile, however she is working significantly to breathe with prolonged expiratory phase, diminished breath sounds throughout, rales at the bilateral bases. Differential diagnosis includes but is not limited to COPD exacerbation, pneumonia, fluid overload, electrolyte abnormality, hypercarbia, ACS. Based on these concerns, I ordered VBG, cardiac workup, thoracic imaging including CTA PE given patient has a comorbidity of cancer which increases her potential for blood clot as well as lung neoplasm. ECG personally interpreted demonstrates sinus rhythm with occasional PVCs, normal DC and QTc, normal axis, there is significant baseline artifact which makes interpretation difficult however there is no STEMI. Patient received DuoNebs for treatment. [id number] bedside ultrasound personally performed and interpreted demonstrates B-lines at the bases concerning for fluid overload. Labs personally reviewed demonstrate no leukocytosis or anemia, platelets normal at 270, PT/INR normal, ABG with normal pH but hypercarbia present, lactic normal at 1.2, CMP notable for new significant hyponatremia, hypochloremia, normal potassium, good kidney function, initial troponin undetectably low at less than 0.01, BNP elevated at 3580. Chest x-ray personally interpreted demonstrates borderline enlarged cardiac silhouette as well as abnormality in the left lung field, possibly pneumonia versus atelectasis. See radiology read for final interpretation. CTAP personally interpreted does not demonstrate large pulmonary embolism on my personal interpretation, I also do not appreciate any lobar infiltrate, patient does have significant emphysematous changes in the lungs. On reassessment after DuoNeb's, patient has had some improvement in her air movement, she is not wheezing. She is now saturating in the low to mid 90s on 2 L nasal cannula with improved work of breathing. Patient's clinical picture is most consistent with accommodation of COPD exacerbation and fluid overload as well as electrolyte abnormalities. She is receiving IV Solu-Medrol. Given her significant work of breathing on arrival, hypoxia, new oxygen requirement, I believe she requires admission to address all of these problems. Patient is amenable to this plan. I discussed this case with the hospitalist including her oxygen requirement, response to nebulizers, treatment so far in the ER, and likely need for diuresis and close conjunction with monitoring of her sodium. Patient accepted for admission.
[2023-11-08 05:07] LABS: Lactate Venous 1.2 mmol/L (0.4-2.0); VBG Base Excess 7.2 mmol/L (-2.4-2.3); VBG HCO3 32.7 mmol/L (23-30); VBG Oxygen Saturation 45.1 % (50-70); VBG PCO2 59.9 mmol/L (35-51); VBG PH 7.36 mmol/L (7.31-7.41); VBG PO2 24.9 mmol/L (28-40); VBG Total CO2 34.5 mmol/L (23-27)
[2023-11-08 05:10] LABS: Basophils % 0.7 % (0.1-2.0); Eosinophils # 0.1 K/mm3 (0.0-0.4); Eosinophils % 1.1 % (0.1-12.0); Hematocrit 40.6 % (37.0-47.0); Hemoglobin 12.8 g/dL (12.2-16.2); Lymphocytes # 0.9 K/mm3 (0.7-4.5); Lymphocytes % 16.3 % (10-50); Mean Corpuscular HGB Conc 31.6 g/dL (31.8-35.4); Mean Corpuscular Hemoglobin 31.7 pg (27.0-31.2); Mean Corpuscular Volume 100.3 fl (81-99); Mean Platelet Volume 7.8 fl (7.4-10.4); Monocytes # 0.4 K/mm3 (0.1-1.0); Monocytes % 6.5 % (1.7-9.3); Neutrophils # 4.1 K/mm3 (1.8-7.8); Neutrophils % 75.5 % (37.0-80.0); Platelet Count 270 K/mm3 (142-424); Red Blood Count 4.04 M/mm3 (4.20-5.40); Red Cell Distribution Width 14.8 % (11.5-17.5); White Blood Count 5.4 K/mm3 (4.8-10.8)
[2023-11-08 05:11] LABS: Albumin Level 3.5 g/dl (3.5-5.0); Chloride 89 mmol/L (98-107); Sodium 124 mmol/L (136-145)
[2023-11-08] MEDS: IPRATROPIUM/ALBUTEROL 3 ML NEB 9 ML IH (05:11)
[2023-11-08 05:12] LABS: Potassium 3.5 mmoL/L (3.5-5.1)
--- NOTE | 2023-11-08 05:12 | ECG_ITS ---
APPROVED REPORT Exam: Resting ECG HR:69 bpm ECG Measurements Heart Rate 69 AXES FL 202 P 62 QRSd 96 QRS 88 QT 420 T 59 QTc 438 Conclusion SINUS RHYTHM WITH OCCASIONAL VENTRICULAR PREMATURE COMPLEXES MODERATE ST DEPRESSION [0.05+ mV ST DEPRESSION] ABNORMAL ECG No STEMI Electronically signed by : DENISSE HAYNES, 11/08/2023 06:24:24
[2023-11-08 05:14] LABS: Alanine Aminotransferase 158 U/L (12-78); Albumin/Globulin Ratio 1.5 (1.1-1.8); Alkaline Phosphatase 86 U/L (38-126); Anion Gap 4.5 mEq/L (5-15); Aspartate Amino Transferase 97 U/L (14-36); Bilirubin,Total 0.5 mg/dl (0.2-1.3); Blood Urea Nitrogen 12 mg/dl (7-17); Carbon Dioxide 34 mmol/L (22.0-30.0); Creatinine Clearance Estimated 37 mL/min (50-200); Estimated Glomerular Filt Rate 120 ml/min (>60); GFR (African American) 145 ML/MIN (>60); Globulin 2.4 g/dL (1.3-3.2); Total Protein,Serum 5.9 g/dl (6.3-8.2)
[2023-11-08 05:15] LABS: Calcium 7.9 mg/dl (8.4-10.2); Glucose 130 mg/dl (74-100)
[2023-11-08 05:16] LABS: Prothrombin Time 11.2 seconds (10.1-12.5)
[2023-11-08 05:24] LABS: NT Pro Brain Natriuretic Pep. 3580 pg/mL (0-450)
[2023-11-08 05:28] LABS: Troponin I < 0.01 ng/ml (0.00-0.034)
[2023-11-08] MEDS: 0.9 % SODIUM CHLORIDE 50 ML VIAL IV (05:53)
[2023-11-08] MEDS: SODIUM CHLORIDE 0.9% 10ML SYR (RAD ONLY) 10 ML IV (05:53)
[2023-11-08] MEDS: IOPAMIDOL-370 (76%);100ML BOTTLE 70 ML IV (05:53)
[2023-11-08] MEDS: METHYLPREDNISOLONE SOD SUCC 125MG VIAL 125 MG IV (06:08)
--- NOTE | 2023-11-08 06:21 | PC.NURSE ---
Report given to LISANDRO Maurice on second floor.
--- NOTE | 2023-11-08 06:21 | PC.NURSE ---
1142 Received phone report from Tavia MCMAHON/ED nurse. Patient is 78 yp female . Diagnosis Resp failure/ COPD Exacerbation, fluid overload. May transport by stretcher.
--- NOTE | 2023-11-08 06:33 | US_ITS ---
FINAL REPORT CLINICAL HISTORY: Transaminitis COMPARISON: None FINDINGS: Sonographic images of the right upper quadrant were obtained. Liver parenchyma appears normal. There is no intrahepatic ductal dilatation. No evidence of common bile duct dilatation is identified. The gallbladder is surgically absent. The portal veins and hepatic veins demonstrate normal direction of flow. The visualized right kidney is unremarkable. The pancreas is partially obscured. There is an abdominal aortic aneurysm with extensive plaque and tortuosity measuring up to 3.8 cm in diameter. There is question of septation. Please see CTA chest report from earlier same day. IMPRESSION: Abdominal aortic aneurysm with extensive plaque and tortuosity. Question of septation. Please see CTA chest from earlier same day. Reviewed, Interpreted and Dictated by Deandre Rich MD Transcribed by Carla Yang Authenticated and [facility]
--- NOTE | 2023-11-08 06:33 | CA_ITS ---
APPROVED REPORT EXAM: Comprehensive 2D, Doppler, and color-flow Echocardiogram Kinder Teacher: Tiffany Stanford, RT(R) Ht: 5 ft 1 in Wt: 109lbs BSA: 1.46 BP: 136/76 mmHg Indications: resp failure, COPD, HTN, smoker, hypoxia, fluid overload, hx of left breast Cancer. Echo Enhancing Agent Indication: Rule out Shunt Agent(s) / Amount(s) Used: Agitated Saline 15 cc 2D Dimensions LVEF (Garay's) 73.30 % F: 54 - 74 LV Volume 81.50 mL F: 46 - 106 LV Volume Index 55.8 mL/m2 F: 29 - 61 LA Volume 46.50 mL LA Volume Index 31.85 mL/m2 (M/F) 16-34 EF AP4 69.10 % EF AP2 75.3 % EF BP 73.3 % GL Strain -22.6 % M-Mode Dimensions RVDd 3.27 cm (0.9-2.6) LA Diam 3.34 cm (1.9-4.0) LVDd 3.65 cm (3.5-5.7) LVDs 2.28 cm (3.5-5.7) IVSd 0.88 cm (0.6-1.1) PWd 0.88 cm (0.6-1.1) EF (Teich) 68.60% FS 37.50% EDV (Teich) 56.30 mL TAPSE 2.29 (<1.7) ESV (Teich) 17.70 mL LV Diastology E Decel Time 297 (160-240 msec) E/A Ratio 0.65 Mitral Valve MV A Velocity 95.0 (40-130 cm/s) E/A Ratio 0.65 Tricuspid Valve TR P. Velocity 432.00 cm/s RAP Estimate 15.00 mmHg RVSP 89.50 mmHg Left Ventricle The left ventricle is normal size. The left ventricular systolic function is normal. The left ventricular ejection fraction is within the normal range. There is increased LV wall thickness. There is normal LV segmental wall motion. Grade 2 diastolic dysfunction is present. LVEF is 55%. Right Ventricle Right ventricle is mild to moderately dilated. Right ventricle is mildly hypokinetic. Atria Left atrium is mildly dilated. Right atrium is moderately dilated. The interatrial septum is hypermobile. No Doppler evidence of interatrial shunt. Agitated saline administration demonstrates no migration of bubbles from the RA into the LA. Aortic Valve The aortic valve is mildly thickened. Aortic sclerosis is present, with no evidence of aortic stenosis. Trace aortic regurgitation. Mitral Valve Mild mitral annular calcification. The mitral valve leaflets are mildly thickened. Mild mitral regurgitation. No evidence of mitral valve stenosis. Tricuspid Valve The tricuspid valve leaflets are thin and pliable. Moderate tricuspid regurgitation. Markedly elevated RVSP > 60 mmHg. Pulmonic Valve The pulmonary valve is normal in structure. Mild pulmonic regurgitation. Great Vessels The aortic root is normal in size. The ascending aorta is not well-visualized. The IVC is not well-visualized. Pericardium There is no pericardial effusion. Other Information Study Quality: Fair Conclusion Normal LV systolic function. Grade 2 diastolic dysfunction. Mild to moderate RV dilation with mild reduction in RV function. Biatrial dilation. Mild MR, mild PI. Moderate TR. Markedly elevated RVSP > 60 mmHg. The interatrial septum is hypermobile. No color Doppler evidence of interatrial shunt. Agitated saline administration demonstrates no evidence of interatrial shunt. Electronically signed by : Bobbi Kirklnad MD 11/13/2023 09:25:09
--- NOTE | 2023-11-08 06:40 | P.HP_ITS ---
History of Present Illness *Admission Date: 11/08/23 *Reason for visit:: Shortness of air *History of present illness: This is a 78-year-old female who presents to [facility] emergency department with concerns of shortness of air. The patient identifies a chronic tobacco dependence history with previously assessed emphysema on no home O2 or inhalers. The patient reports 2 to 3 days of feeling weak with acute on chronic cough that she attributes to her tobacco use history. She denies fever, chills, confusion or purulent production. She denies hemoptysis. She has identified increasing shortness of air worse with exertion but no pain with inspiration. Chronic lower extremity edema worse over the last 2 to 3 days. In the ED she required oxygen therapy to maintain appropriate oxygen saturations and her chest x-ray identified no infiltrates or opacities. Her labs were significant for hyponatremia and transaminitis. [facility] Medical History (Updated 11/08/23 @ 06:43 by Blue Haile MD) (HFpEF) heart failure with preserved ejection fraction Tobacco dependence SVT (supraventricular tachycardia) Hypothyroid Emphysema/COPD Breast cancer Anxiety Hypertension COPD exacerbation Arthritis of hip Surgical History H/O tubal ligation History of partial mastectomy of left breast History of colonoscopy History of cataract surgery H/O thyroidectomy History of laparoscopic cholecystectomy History of total hip replacement Family History Daughter Cancer lung Social History Smoking Status: Current every day smoker tobacco type: cigarettes packs per day: 1 second hand exposure: Yes alcohol intake: never substance use type: denies use current occupational status: retired Travel in the last 8 weeks: None household members: spouse housing: house current occupational exposures/hazards: No caffeine: Yes Review of Systems Review of Systems Review of systems:: pertinent systems reviewed and negative unless documented below *Cardiovascular Cardiovascular: Denies chest pain, Denies chest pain at rest, Reports dyspnea, Reports dyspnea on exertion and Denies palpitations *Respiratory Respiratory: Reports dyspnea, Reports dyspnea on exertion and Denies hemoptysis *Gastrointestinal Gastrointestinal: Denies loose stools, Denies nausea and Denies vomiting *Musculoskeletal Musculoskeletal: Reports arthralgias and Reports back pain Integumentary/Breasts Skin/Breast: Reports wounds Endocrine Endocrine: Denies palpitations Meds Home Medications and Allergies Home Medications ?Medication ?Instructions ?Recorded ?Confirmed ?Type losartan 100 mg tablet 100 mg PO DAILY High blood pressure 09/29/21 11/08/23 History hydralazine 50 mg tablet 50 mg PO TID BLOOD PRESSURE 08/31/22 11/08/23 History citalopram 20 mg tablet 40 mg PO BID . 10/04/22 11/08/23 History nadolol 40 mg tablet 20 mg PO BID htn 10/04/22 11/08/23 History potassium 99 mg tablet 99 mg PO DAILY . 10/04/22 11/08/23 History alprazolam 1 mg tablet 0.5 mg PO QID 11/02/22 11/08/23 History cholecalciferol (vitamin D3) 125 125 mcg PO DAILY 11/02/22 11/08/23 History mcg (5,000 unit) capsule mecobalamin (vitamin B12) 2,500 2,500 mcg PO DIRECTED SUPPLIMENT 11/02/22 11/08/23 History mcg chewable tablet diclofenac sodium 75 mg 75 mg PO BID #60 tabs 04/02/23 11/08/23 Rx tablet,delayed release acetaminophen 325 mg capsule 500 mg PO TID Pain 05/30/23 11/05/23 History (Tylenol) furosemide 40 mg tablet 20 mg PO BID Fluid 05/30/23 11/08/23 History hydrocodone 5 mg-acetaminophen 325 1 tab PO BID #28 tabs 10/25/23 11/08/23 Rx mg tablet furosemide 40 mg tablet 20 mg PO BID 11/08/23 11/08/23 History levothyroxine 175 mcg tablet 150 mcg PO DAILY 11/08/23 11/08/23 History New Prescriptions to Start Prescriptions: Allergies Allergy/AdvReac Type Severity Reaction Status Date / Time doxycycline Allergy Mild Verified 10/30/23 13:45 Antihistamines - Allergy Unknown Verified 10/30/23 13:45 Ethylenediamine diclofenac Allergy Unknown Unknown Verified 11/08/23 05:09 allergy reaction latex [LATEX] Allergy Unknown Rash Verified 11/08/23 05:09 duloxetine AdvReac Unknown Fatigued Verified 11/08/23 05:09 ketoprofen AdvReac Unknown I-RASH Verified 10/30/23 13:45 amoxicillin AdvReac Diarrhea Verified 10/30/23 13:45 steri strips Allergy Unknown Unknown Uncoded 10/30/23 13:45 allergy reaction Exam Data for Last 24 hours Vital signs and Labs for Last 24 Hours: Temp Pulse Resp BP Pulse Ox O2 Del Method O2 Flow Rate 98.7 F 62 18 136/76 91 L Nasal Cannula 4 11/08/23 06:21 11/08/23 06:21 11/08/23 06:21 11/08/23 06:21 11/08/23 05:02 11/08/23 06:21 11/08/23 06:21 Laboratory Results - last 24 hr 11/08/23 04:50: WBC 5.4, RBC 4.04 L, Hgb 12.8, Hct 40.6, MCV 100.3 H, MCH 31.7 H , MCHC 31.6 L, RDW 14.8, Plt Count 270, MPV 7.8, Neut % (Auto) 75.5, Lymph % (Auto) 16.3, [place] % (Auto) 6.5, Eos % (Auto) 1.1, Baso % (Auto) 0.7, Neut # (Auto) 4.1, Lymph # (Auto) 0.9, [place] # (Auto) 0.4, Eos # (Auto) 0.1, Baso # (Auto) 0.0, PT 11.2, INR 1.00, Sodium 124 L, Potassium 3.5, Chloride 89 L, Carbon Dioxide 34 H, Anion Gap 4.5 L, BUN 12, Creatinine 0.50 L, Estimated Creat Clear 37, Estimated GFR 120, Est GFR ( Amer) 145, Glucose 130 H, Calcium 7.9 L, Total Bilirubin 0.5, AST 97 H, ALT 158 H, Alkaline Phosphatase 86, Troponin I < 0.01, NT-Pro-B Natriuret Pep 3580 H, Total Protein 5.9 L, Albumin 3.5, Globulin 2.4, Albumin/Globulin Ratio 1.5 11/08/23 05:05: VBG pH 7.36, VBG pCO2 59.9 H, VBG pO2 24.9 L, VBG HCO3 32.7 H, VBG Total CO2 34.5 H, VBG O2 Saturation 45.1 L, VBG Base Excess 7.2 H, VBG Lactic Acid 1.2 I & O for Last 24 hours: Intake & Output 11/05/23 11/06/23 11/07/23 11/08/23 23:59 23:59 23:59 23:59 Weight 49.442 kg Constitutional Constitutional: no acute distress, thin, chronically ill appearing and c ooperative *Routine HEENT Exam Head: Present normocephalic and atraumatic Eye: Present EOMI and PERRL ENT: Present mucous membranes moist *Routine Neck Exam Neck: Present supple and trachea midline; Absent lymphadenopathy *Routine Respiratory Exam Respiratory: Present accessory muscle use, rhonchi, wheezes, crackles, diminished air movement and symmetric chest movement *Routine Cardiovascular Exam Cardiovascular: Present RRR *Routine Abdominal Exam Abdominal: Present soft and normoactive bowel sounds; Absent tenderness *Routine Rectal Exam Rectal:: deferred *Routine Genitalia Exam Genitalia:: deferred *Routine Extremities Exam Extremities: Present edema *Routine Skin Exam Skin: Absent rash *Routine Neurological Exam Neurological: Present alert, oriented X3, moving all extremities, vision grossly intact and hearing grossly intact; Absent sensory deficit or motor deficit Routine Psychiatric Exam Psychiatric: Present normal affect and cooperative Assessment and Plan *Assessment and plan (1) Acute on chronic respiratory failure with hypoxia and hypercapnia: Status: Acute Category: Medical Code(s): J96.21 - Acute and chronic respiratory failure with hypoxia; J96.22 - Acute and chronic respiratory failure with hypercapnia (2) COPD exacerbation: Status: Acute Category: Medical Code(s): J44.1 - Chronic obstructive pulmonary disease with (acute) exacerbation (3) Tobacco dependence: Status: Acute Category: Medical Code(s): F17.200 - Nicotine dependence, unspecified, uncomplicated (4) Acute on chronic heart failure with preserved ejection fraction (HFpEF): Status: Acute Category: Medical Code(s): I50.33 - Acute on chronic diastolic (congestive) heart failure (5) Transaminitis: Status: Acute Category: Medical Code(s): R74.01 - Elevation of levels of liver transaminase levels (6) Hyponatremia: Status: Acute Category: Medical Code(s): E87.1 - Hypo-osmolality and hyponatremia (7) Recurrent breast cancer: Status: Acute Category: Medical Code(s): C50.919 - Malignant neoplasm of unspecified site of unspecified female breast (8) Chronically on benzodiazepine therapy: Status: Acute Category: Medical Code(s): 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 She reports no home oxygen or inhaler therapy. She reports ongoing tobacco dependence. Problems addressed as follows: Acute on chronic hypoxic and hypercapnic respiratory failure COPD exacerbation Tobacco dependence Pulse oximetry monitoring Oxygen therapy to maintain appropriate oxygen saturations Currently requiring 2 L via nasal cannula (no home O2 reported) ED VBG with pCO2 60 Chest x-ray with COPD findings CTA chest pending Marta/Chasity inhalation therapy ICS therapy P.o. prednisone therapy PPI therapy Tobacco cessation education Nicotine replacement therapy Acute on chronic HFpEF Telemetry monitoring Accurate I's and O's Sodium and fluid restriction Daily weights Previous echo (2020) with EF 55% and diastolic dysfunction ED proBNP 3580 Intermittent proBNP evaluations Echo ordered IV loop diuretic therapy Drug therapy requiring intensive monitoring for toxicity Routine electrolytes, magnesium and creatinine evaluations Beta-nohemy therapy SGLT2 inhibitor therapy ARB therapy with consideration of ARNI start pending echo results Aldosterone antagonist therapy Transaminitis Broad differential diagnoses with recurrent breast cancer Liver ultrasound Acute hepatitis panel Trending LFTs Hyponatremia Home loop diuretic therapy noted Trending electrolytes Urine studies Chronically prescribed benzodiazepines Routine nursing interaction Benzodiazepine therapy Hypothyroidism TSH, free T4 evaluation Levothyroxine replacement therapy Recurrent breast cancer on left side Follows with oncology (10/30/2023 office note reviewed) CTA chest pending Pain control Poor prognosis Goals of care conversation The length of stay for this patient will be 2 midnights or greater due to above diagnoses.
--- NOTE | 2023-11-08 06:56 | PC.NURSE ---
0655 Patient arrived to the floor by stretcher. 3 family members present.
[2023-11-08 08:02] LABS: Troponin I 0.02 ng/ml (0.00-0.034)
--- NOTE | 2023-11-08 08:16 | HMH.PHAINT1 ---
Pharmacy Intervention Comments: MEDICATION RECONCILIATION COMPLETED ON PATIENT USING EXTERNAL FILL FROM PHARMACY. -LORENA GUNDERSON, JANED
[2023-11-08 08:22] LABS: Thyroid Stimulating Hormone 1.21 uIU/mL (0.465-4.68)
[2023-11-08] MEDS: BUMETANIDE 1MG/4ML VIAL 1 MG IV ×2 (08:52→15:40)
[2023-11-08] MEDS: predniSONE 20MG TAB 40 MG PO (08:54)
[2023-11-08] MEDS: DOCUSATE SODIUM 100 MG CAPSULE PO (08:54)
[2023-11-08] MEDS: ACETAMINOPHEN 500MG TAB 1000 MG PO ×2 (08:54→20:49)
[2023-11-08] MEDS: IRBESARTAN 150MG TAB 150 MG PO (08:54)
[2023-11-08] MEDS: BISOPROLOL 5MG TABLET 5 MG PO (08:55)
[2023-11-08] MEDS: EMPAGLIFLOZIN 10MG TABLET 10 MG PO (08:55)
[2023-11-08] MEDS: PANTOPRAZOLE 40MG TABLET 40 MG PO (08:55)
[2023-11-08] MEDS: SPIRONOLACTONE 25MG TABLET 25 MG PO (08:55)
[2023-11-08] MEDS: ENOXAPARIN 40MG/0.4ML SYRINGE 40 MG SQ (08:57)
[2023-11-08 09:00] LABS: Free T4 (Free Thyroxine) 1.58 ng/dl (0.78-2.19)
[2023-11-08 09:19] LABS: Adenovirus,PCR Not Detected (NotDetected); Bordetella Pertussis Not Detected (NotDetected); Chlamydophila Pneumoniae, PCR Not Detected (NotDetected); Coronavirus 19, PCR Not Detected (NotDetected); Coronavirus 229E Not Detected (NotDetected); Coronavirus NL63 Not Detected (NotDetected); Coronavirus OC43 Not Detected (NotDetected); Coronovirus HKU1,PCR Not Detected (NotDetected); Human Metapneumovirus Not Detected (NotDetected); Influenza A, PCR Not Detected (NotDetected); Influenza AH1, 2009 Not Detected (NotDetected); Influenza AH1, PCR Not Detected (NotDetected); Influenza AH3,PCR Not Detected (NotDetected); Influenza B, PCR Not Detected (NotDetected); Mycoplasma Pneumoniae, PCR Not Detected (NotDetected); Parainfluenza 1, PCR Not Detected (NotDetected); Parainfluenza 2, PCR Not Detected (NotDetected); Parainfluenza 3, PCR Not Detected (NotDetected); Parainfluenza 4, PCR Not Detected (NotDetected); Respiratory Syncytial Virus Not Detected (NotDetected); Rhinovirus/Enterovirus Not Detected (NotDetected)
[2023-11-08 09:56] LABS: Vitamin B12 > 1000 pg/mL (239-931)
--- NOTE | 2023-11-08 11:26 | EXP.CARD.CON ---
History of Present Illness History of Present Illness Consult date: 11/08/23 Requesting physician: Al Bailey Consult reason: shortness of breath Chief complaint: soa History of present illness: This is a 78-year-old white female with past medical history of COPD/emphysema with chronic tobacco use and recurrent left breast cancer who presented to emergency department with complaints of increased shortness of breath, worsening lower extremity edema and generalized weakness x 2 days. Labs were significant for hyponatremia and transaminitis. Patient was requiring oxygen therapy to maintain oxygen saturation greater than 90%. Chest x-ray showed no significant cardiopulmonary process. Patient was started on IV diuretics and admitted for further evaluation. This morning patient denies chest pain reports shortness of air has improved and is maintaining oxygen saturation of 95% on room air. Echocardiogram is pending. [facility] Disclaimer: The information contained in this section may have been updated after the patient was seen, as this information can be updated by other users. Medical History (Updated 11/08/23 @ 11:30 by Roselia Washington APRN) (HFpEF) heart failure with preserved ejection fraction Tobacco dependence SVT (supraventricular tachycardia) Hypothyroid Emphysema/COPD Breast cancer Anxiety Hypertension COPD exacerbation Arthritis of hip Surgical History H/O tubal ligation History of partial mastectomy of left breast History of colonoscopy History of cataract surgery H/O thyroidectomy History of laparoscopic cholecystectomy History of total hip replacement Family History Daughter Cancer lung Social History (Updated 11/08/23 @ 09:17 by Shannan Chapa RN) Smoking Status: Current every day smoker tobacco type: cigarettes packs per day: 1 second hand exposure: Yes alcohol intake: never substance use type: denies use current occupational status: retired Travel in the last 8 weeks: None household members: spouse housing: house current occupational exposures/hazards: No caffeine: Yes Review of Systems *Cardiovascular Cardiovascular: Denies chest pain and Reports dyspnea *Respiratory Respiratory: Reports dyspnea Exam Data for Last 24 hours Vital signs and Labs for Last 24 Hours: Temp Pulse Resp BP Pulse Ox O2 Del Method O2 Flow Rate 98.7 F 64 14 131/75 95 Room Air 4 11/08/23 06:21 11/08/23 07:25 11/08/23 07:25 11/08/23 07:25 11/08/23 07:25 11/08/23 10:40 11/08/23 09:00 Laboratory Results - last 24 hr 11/08/23 04:50: WBC 5.4, RBC 4.04 L, Hgb 12.8, Hct 40.6, MCV 100.3 H, MCH 31.7 H, MCHC 31.6 L, RDW 14.8, Plt Count 270, MPV 7.8, Neut % (Auto) 75.5, Lymph % (Auto) 16.3, [place] % (Auto) 6.5, Eos % (Auto) 1.1, Baso % (Auto) 0.7, Neut # (Auto) 4.1, Lymph # (Auto) 0.9, [place] # (Auto) 0.4, Eos # (Auto) 0.1, Baso # (Auto) 0.0, PT 11.2, INR 1.00, Sodium 124 L, Potassium 3.5, Chloride 89 L, Carbon Dioxide 34 H, Anion Gap 4.5 L, BUN 12, Creatinine 0.50 L, Estimated Creat Clear 37, Estimated GFR 120, Est GFR ( Amer) 145, Glucose 130 H, Calcium 7.9 L, Total Bilirubin 0.5, AST 97 H, ALT 158 H, Alkaline Phosphatase 86, Troponin I < 0.01, NT-Pro-B Natriuret Pep 3580 H, Total Protein 5.9 L, Albumin 3.5, Globulin 2.4, Albumin/Globulin Ratio 1.5 11/08/23 05:05: VBG pH 7.36, VBG pCO2 59.9 H, VBG pO2 24.9 L, VBG HCO3 32.7 H, VBG Total CO2 34.5 H, VBG O2 Saturation 45.1 L, VBG Base Excess 7.2 H, VBG Lactic Acid 1.2 11/08/23 07:30: Troponin I 0.02, Vitamin B12 > 1000 H, TSH 1.21, Free T4 1.58 11/08/23 09:14: Chlamy pneumoniae PCR Not detected, Adenovirus (PCR) Not detected, B. pertussis DNA (PCR) Not detected, Coronavirus OC43 (PCR) Not detected, Coronavirus HKU1 (PCR) Not detected, Coronavirus 229E (PCR) Not detected, SARS-CoV-2 (PCR) Not detected, Coronavirus NL63 (PCR) Not detected, Human Metapneumovir PCR Not detected, Influenza A (H1) PCR Not detected, Influ A (H1N1/09) PCR Not detected, Influenza A (H3) PCR Not detected, Influenza Type A (PCR) Not detected, Influenza Type B (PCR) Not detected, M. pneumoniae (PCR) Not detected, Parainfluenza 1 (PCR) Not detected, Parainfluenza 2 (PCR) Not detected, Parainfluenza 3 (PCR) Not detected, Parainfluenza 4 (PCR) Not detected, RSV (PCR) Not detected, Entero/Rhino (PCR) Not detected I & O for Last 24 hours: Intake & Output 11/05/23 11/06/23 11/07/23 11/08/23 23:59 23:59 23:59 23:59 Intake Total 480 / 480 Balance 480 / 480 Weight 109 lb Constitutional Constitutional: no acute distress *Routine Respiratory Exam Respiratory: Present CTA bilaterally and symmetric chest movement *Routine Cardiovascular Exam Cardiovascular: Present RRR, Normal S1 and Normal S2 *Routine Abdominal Exam Abdominal: Present soft and normoactive bowel sounds; Absent tenderness *Routine Extremities Exam Extremities: Present edema, full ROM and normal capillary refill *Routine Skin Exam Skin: Present intact, dry and warm Detailed Neck Exam: Thyroids Thyroid: Absent bruit Meds Home Medications and Allergies Home Medications ?Medication ?Instructions ?Recorded ?Confirmed ?Type losartan 100 mg tablet 100 mg PO DAILY 09/29/21 11/08/23 History hydralazine 50 mg tablet 50 mg PO TID 08/31/22 11/08/23 History nadolol 40 mg tablet 20 mg PO BID 10/04/22 11/08/23 History cholecalciferol (vitamin D3) 125 125 mcg PO DAILY 11/02/22 11/08/23 History mcg (5,000 unit) capsule diclofenac sodium 75 mg 75 mg PO BID #60 tabs 04/02/23 11/08/23 Rx tablet,delayed release hydrocodone 5 mg-acetaminophen 325 1 tab PO BID #28 tabs 10/25/23 11/08/23 Rx mg tablet alprazolam 0.5 mg tablet 0.5 mg PO QIDP PRN Anxiety 11/08/23 11/08/23 History citalopram 40 mg tablet 20 mg PO BID 11/08/23 11/08/23 History furosemide 40 mg tablet 20 mg PO BID 11/08/23 11/08/23 History levothyroxine 175 mcg tablet 150 mcg PO DAILY 11/08/23 11/08/23 History potassium 99 mg tablet 99 mg PO DAILY 11/08/23 11/08/23 History New Prescriptions to Start Prescriptions: Allergies Allergy/AdvReac Type Severity Reaction Status Date / Time doxycycline Allergy Mild Unknown Verified 11/08/23 07:35 allergy reaction adhesive Allergy Unknown Unknown Verified 11/08/23 07:35 allergy reaction Antihistamines - Allergy Unknown Unknown Verified 11/08/23 07:35 Ethylenediamine allergy reaction diclofenac Allergy Unknown Unknown Verified 11/08/23 05:09 allergy reaction latex [LATEX] Allergy Unknown Rash Verified 11/08/23 05:09 duloxetine AdvReac Unknown Fatigued Verified 11/08/23 05:09 ketoprofen AdvReac Unknown I-RASH Verified 10/30/23 13:45 amoxicillin AdvReac Diarrhea Verified 10/30/23 13:45 Assessment and Plan *Assessment and plan (1) Acute on chronic heart failure with preserved ejection fraction (HFpEF): Status: Acute Category: Medical Code(s): I50.33 - Acute on chronic diastolic (congestive) heart failure (2) Tobacco dependence: Status: Acute Category: Medical Code(s): F17.200 - Nicotine dependence, unspecified, uncomplicated (3) COPD (chronic obstructive pulmonary disease): Status: Acute Category: Medical Code(s): J44.9 - Chronic obstructive pulmonary disease, unspecified (4) Respiratory failure: Status: Acute Category: Medical Code(s): J96.90 - Respiratory failure, unspecified, unspecified whether with hypoxia or hypercapnia Plan Acute on chronic hypoxic respiratory failure Known COPD Tobacco dependence HFpEF/Right sided heart failure Pulmonary HTN Preliminary echo shows normal LV function, moderate TR, mild reduction in RV function, moderate MR, RVSP 55-60 CTA chest: Negative for PE, centrilobular emphysema present, calcified coronary artery disease, right heart strain with reflux of IV contrast into the IVC and hepatic veins with RV/LV ratio elevated, small left pleural effusion, 4 cm infrarenal abdominal aortic BNP 3580 Continue Bumex 1 mg IV twice daily and Jardiance 10 mg p.o. daily Continue Aldactone 25 mg p.o. daily Continue bisoprolol 5 mg p.o. daily Recommend starting amlodipine 2.5 mg p.o. daily for pulmonary hypertension Recommend pulmonology consult Hypertension Continue beta-nohemy and irbesartan Transaminitis AST 97, ALT 158 Defer to primary service Hyponatremia Sodium 124 Recurrent breast cancer on left side Defer to primary service CV summary 11/08/2023: Continue to diurese patient, recommend pulmonology consult. Cardiac meds Bumex 1 mg IV twice daily Jardiance 10 mg p.o. daily Aldactone 25 mg p.o. daily Amlodipine 2.5 mg p.o. daily Bisoprolol 5 mg p.o. daily Irbesartan 150 mg p.o. daily
[2023-11-08 11:54] LABS: Troponin I 0.01 ng/ml (0.00-0.034)
[2023-11-08] MEDS: IPRATROPIUM/ALBUTEROL 3 ML NEB IH ×2 (12:02→18:09)
--- NOTE | 2023-11-08 14:22 | HMH.PTEV ---
Physical Therapy Evaluation Rehab PT IP Evaluation Start: 11/08/23 12:44 Freq: ONCE Status: Active Protocol: Document 11/08/23 14:16 KASSI (Rec: 11/08/23 14:22 KASSI [id number]) Subjective/History History History Per H&P: This is a 78-year- old female who presents to [facility] emergency department with concerns of shortness of air. The patient identifies a chronic tobacco dependence history with previously assessed emphysema on no home O2 or inhalers. The patient reports 2 to 3 days of feeling weak with acute on chronic cough that she attributes to her tobacco use history. She denies fever, chills, confusion or purulent production. She denies hemoptysis. She has identified increasing shortness of air worse with exertion but no pain with inspiration. Chronic lower extremity edema worse over the last 2 to 3 days. In the ED she required oxygen therapy to maintain appropriate oxygen saturations and her chest x- ray identified no infiltrates or opacities. Her labs were significant for hyponatremia and transaminitis. Subjective Subjective Pt reports she lives alone in a single story home with 3-4 EMILY. Pt was IND with all mobility with intermittent use of rollator. Pt IND with ADLs and most IADLs (only did light cleaning). Pt has 2 daughters who report can stay with her if needed. Rehab PT IP Eval Objective Appearance Patient Behavior Appropriate,Cooperative Patient Orientation Person,Place,Situation Difficulty following instructions none Speech Pattern Clear Ambulation Patient Able to Ambulate Yes Ambulation Observation IP General Gait Pattern Observation No Deviations/Normal Ambulation Distance (feet) 40 Ambulation Assistive Device None Ambulation Ability Supervision/Stand by Balance Ability to Arise Able, uses arms to help Sitting Balance Steady, safe Standing Balance Steady, wide stance Transfers Bed Transfer Ability Supervision/Stand by Sit to Stand Bed Transfer Ability Supervision/Stand by Rehab PT IP prob,goals,plan Problems Date of Evaluation: 11/08/23 Rehab Potential Rehab Potential Innapropriate for Skilled Therapy Discharge Plan PT Discharge Plan Pt safe to d/c home when deemed medically necessary d/t current level of mobility, home set-up, and family support. Pt demo'd safe ambulation without LOB or use of AD. Pt not appropriate for skilled acute care PT at this time d/t pt?s mobility being at baseline. Eval Complexity Eval Charge Codes 30980 - Moderate Complexity PHYSICIAN CERTIFICATION: I certify the specified therapy services for Cindyfoster Braxton are required, authorized, and reviewed every 30 days.
--- NOTE | 2023-11-08 14:23 | HMH.OTEV ---
OT Inpatient Evaluation Rehab OT IP Evaluation Start: 11/08/23 12:44 Freq: ONCE Status: Active Protocol: Document 11/08/23 14:18 LUIS CARLOS (Rec: 11/08/23 14:23 [facility] [id number]) Rehab OT IP Assessment Subjective History Pt oriented x3 on arrival. Pt agreeable to engage in therapy evaluation. Pt admitted on 11/08/23 due to respiratory failure and hypoxia. History and Physical: This is a 78-year-old female who presents to [facility] emergency department with concerns of shortness of air. The patient identifies a chronic tobacco dependence history with previously assessed emphysema on no home O2 or inhalers. The patient reports 2 to 3 days of feeling weak with acute on chronic cough that she attributes to her tobacco use history. She denies fever , chills, confusion or purulent production. She denies hemoptysis. She has identified increasing shortness of air worse with exertion but no pain with inspiration. Chronic lower extremity edema worse over the last 2 to 3 days. In the ED she required oxygen therapy to maintain appropriate oxygen saturations and her chest x- ray identified no infiltrates or opacities. Her labs were significant for hyponatremia and transaminitis. Subjective What am I doing this for? Pt reports prior to being in the hospital, she lived at home alone. Pt claims normally she is independent with all ADLs such dressing, bathing, and feeding. She is also able to complete simple IADLS such as laundry, dishes, etc. Her family would come in and complete all heavier insole stiffener such as mopping and vacuuming. Pt does have 3 steps to enter home, but the rest of her home is on one level. Pt does have a rolling walker and cane but does not use them during functional transfers. Pt also still drives. Objective Patient Orientation Person,Place,Birthday Right Upper Extremity Gross ROM WFL Left Upper Extremity Gross ROM WFL Bed Mobility bed mobility-scooting,bed mobility - supine/sit Assist Level Supervision/Stand by Transfer Training Sit/Stand Transfer Assist Level Supervision/Stand by Lower Body Dressing Ability Standby Assistance Performing Toilet Hygiene Ability Standby Assistance Overall Commode/Toilet Transfer Ability Standby Assistance Commode/Toilet Transfer Technique Sit to/from Ambulatory Commode/Toilet Transfer Assistive Grab Bars Devices Rehab OT IP prob,goals,plan Problems Date of Evaluation: 11/08/23 Rehab Potential Rehab Potential Innapropriate for Skilled Therapy Discharge Plan OT Discharge Plan Pt appears to be at her baseline with functional transfers and ADL independence . Pt can return home once medically stable per physician . Eval Complexity Eval Charge Codes 47168 - Low Complexity PHYSICIAN CERTIFICATION: I certify the specified therapy services for Cindy Braxton are required, authorized, and reviewed every 30 days.
[2023-11-08] MEDS: HYDROCODONE/APAP 5/325 MG TABLET 1 TAB PO (15:54)
[2023-11-08] MEDS: NICOTINE 21MG/24HR PATCH 21 MG TD (16:04)
--- NOTE | 2023-11-08 16:43 | PC.NURSE ---
pt o2 requirement weaned from 4L to 2L nc this shift. pt has been satting in low 90s. pt had requested that her home medications be ordered previously in shift. MD notified and home medications have been reordered. pt is being diuresed per MAY and has been going to restroom frequently. pt has nicotine patch to lt upper arm that was placed by this RN AT 1600. pt educated on medication usage. no new orders at this time. call light within reach.
[2023-11-08] MEDS: BUDESONIDE 0.5MG/2ML NEB 0.5 MG IH (18:09)
[2023-11-08] MEDS: CITALOPRAM 20MG TABLET 20 MG PO (20:40)
[2023-11-08] MEDS: ALPRAZolam 0.5MG TABLET 0.5 MG PO (20:48)
[2023-11-08] MEDS: HYDROCODONE/APAP 5/325 MG TABLET 0.5 TAB PO (21:53)
[2023-11-09] VITALS (8 sets, daily range): BP systolic 140–160; BP diastolic 69–94; PULSE 58–64; RESP 16–18; TEMP 36.1–36.8; O2SAT 92–99; BMI 22.4
[2023-11-09] MEDS: IPRATROPIUM/ALBUTEROL 3 ML NEB IH ×2 (00:14→06:20)
[2023-11-09] MEDS: ALPRAZolam 0.5MG TABLET 0.5 MG PO (02:47)
[2023-11-09] MEDS: HYDROCODONE/APAP 5/325 MG TABLET 0.5 TAB PO (05:19)
[2023-11-09 05:57] LABS: Basophils % 0.3 % (0.1-2.0); Eosinophils % 0.3 % (0.1-12.0); Hematocrit 41.9 % (37.0-47.0); Hemoglobin 12.9 g/dL (12.2-16.2); Lymphocytes # 1.1 K/mm3 (0.7-4.5); Lymphocytes % 17.9 % (10-50); Mean Corpuscular HGB Conc 30.9 g/dL (31.8-35.4); Mean Corpuscular Hemoglobin 31.3 pg (27.0-31.2); Mean Corpuscular Volume 101.5 fl (81-99); Mean Platelet Volume 7.5 fl (7.4-10.4); Monocytes # 0.7 K/mm3 (0.1-1.0); Monocytes % 11.2 % (1.7-9.3); Neutrophils # 4.3 K/mm3 (1.8-7.8); Neutrophils % 70.4 % (37.0-80.0); Platelet Count 298 K/mm3 (142-424); Red Blood Count 4.13 M/mm3 (4.20-5.40); Red Cell Distribution Width 14.8 % (11.5-17.5); White Blood Count 6.2 K/mm3 (4.8-10.8)
[2023-11-09 06:18] LABS: Albumin Level 3.3 g/dl (3.5-5.0); Chloride 91 mmol/L (98-107); Potassium 4.2 mmoL/L (3.5-5.1); Sodium 128 mmol/L (136-145)
[2023-11-09 06:20] LABS: Alanine Aminotransferase 139 U/L (12-78); Aspartate Amino Transferase 54 U/L (14-36); Blood Urea Nitrogen 14 mg/dl (7-17); Creatinine Clearance Estimated 40 mL/min (50-200); Estimated Glomerular Filt Rate 97 ml/min (>60); GFR (African American) 117 ML/MIN (>60)
[2023-11-09] MEDS: BUDESONIDE 0.5MG/2ML NEB 0.5 MG IH (06:20)
[2023-11-09 06:21] LABS: Albumin/Globulin Ratio 1.4 (1.1-1.8); Alkaline Phosphatase 63 U/L (38-126); Anion Gap 4.2 mEq/L (5-15); Bilirubin,Total 0.5 mg/dl (0.2-1.3); Calcium 8.7 mg/dl (8.4-10.2); Carbon Dioxide 37 mmol/L (22.0-30.0); Globulin 2.4 g/dL (1.3-3.2); Glucose 94 mg/dl (74-100); Magnesium 2.1 mg/dl (1.6-2.3); Total Protein,Serum 5.7 g/dl (6.3-8.2)
[2023-11-09] MEDS: LEVOTHYROXINE 175MCG (0.175MG) TAB 175 MCG PO (06:25)
[2023-11-09 06:29] LABS: NT Pro Brain Natriuretic Pep. 2320 pg/mL (0-450)
--- NOTE | 2023-11-09 06:55 | PC.NURSE ---
Patient has rested well throughout the night. Tolerated 2L NC well with o2 stats >90%. Patient has ambulated to/from restroom well throughout shift with standby assist. Alprazolam and [place] administered q6h for pain and anxiety per MAR. Patients daughter has remained at bedside throughout the night.
[2023-11-09] MEDS: BUMETANIDE 1MG/4ML VIAL 1 MG IV (09:25)
[2023-11-09] MEDS: BISOPROLOL 5MG TABLET 5 MG PO (09:25)
[2023-11-09] MEDS: predniSONE 20MG TAB 40 MG PO (09:25)
[2023-11-09] MEDS: ENOXAPARIN 40MG/0.4ML SYRINGE 40 MG SQ (09:25)
[2023-11-09] MEDS: DOCUSATE SODIUM 100 MG CAPSULE PO (09:25)
[2023-11-09] MEDS: PANTOPRAZOLE 40MG TABLET 40 MG PO (09:25)
[2023-11-09] MEDS: CITALOPRAM 20MG TABLET 20 MG PO (09:25)
[2023-11-09] MEDS: AMLODIPINE 2.5MG TABLET 2.5 MG PO (09:25)
[2023-11-09] MEDS: SPIRONOLACTONE 25MG TABLET 25 MG PO (09:25)
[2023-11-09] MEDS: EMPAGLIFLOZIN 10MG TABLET 10 MG PO (09:25)
[2023-11-09] MEDS: IRBESARTAN 150MG TAB 150 MG PO (09:31)
[2023-11-09] MEDS: ACETAMINOPHEN 500MG TAB 1000 MG PO (09:50)
--- NOTE | 2023-11-09 09:53 | P.CONS_ITS ---
History of Present Illness History of present illness: Ms. Braxton is a 78-year-old female greater than [id number] smoking history last moved around 2 to 4 years ago carries a diagnosis of COPD not using any long-acting inhalers continue albuterol 3 times daily presented to the hospital worsening respiratory distress and pulmonary was called for further evaluation and management. [facility] Disclaimer: The information contained in this section may have been updated after the patient was seen, as this information can be updated by other users. Medical History (Updated 11/09/23 @ 13:37 by Shai Yang MD) Pleural effusion (HFpEF) heart failure with preserved ejection fraction Tobacco dependence SVT (supraventricular tachycardia) Hypothyroid Emphysema/COPD Breast cancer Anxiety Hypertension COPD exacerbation Arthritis of hip Surgical History H/O tubal ligation History of partial mastectomy of left breast History of colonoscopy History of cataract surgery H/O thyroidectomy History of laparoscopic cholecystectomy History of total hip replacement Family History Daughter Cancer lung Social History (Updated 11/08/23 @ 09:17 by Shannan Chapa, RN) Smoking Status: Current every day smoker tobacco type: cigarettes packs per day: 1 second hand exposure: Yes alcohol intake: never substance use type: denies use current occupational status: retired Travel in the last 8 weeks: None household members: spouse housing: house current occupational exposures/hazards: No caffeine: Yes Review of Systems Constitutional Constitutional: Reports anorexia, Reports body ache(s) and Reports fatigue Eyes Eyes: Denies eye discharge, Denies dry eyes, Denies irritation and Denies itchy eyes ENT Ears, Nose, Mouth, and Throat: Denies epistaxis, Denies facial pain, Denies lip swelling and Denies throat swelling *Cardiovascular Cardiovascular: Reports dyspnea, Reports dyspnea on exertion, Reports leg edema and Reports orthopnea *Respiratory Respiratory: Reports chest congestion, Reports cough, Reports dyspnea, Reports dyspnea on exertion, Denies excessive phlegm production and Denies wheezing *Gastrointestinal Gastrointestinal: Denies abdominal pain, Denies belching and Denies cramping *Musculoskeletal Musculoskeletal: Reports back pain, Reports myalgias and Reports other (No small joint swelling or Pain) Psychiatric Psychiatric: Denies homicidal ideation and Denies suicidal ideation Endocrine Endocrine: Reports fatigue and Denies heat intolerance Hematologic/Lymphatic Hematologic/Lymphatic: Denies easy bleeding and Denies lymphadenopathy Allergic/Immunologic Allergic/Immunologic: Denies itchy eyes, Denies lip swelling, Denies throat swelling and Denies wheezing Pulmonology Exam Inpatient Vital signs and Labs for Last 24 Hours: Temp Pulse Resp BP Pulse Ox O2 Del Method O2 Flow Rate 96.9 F L 60 18 160/83 H 92 L Room Air 2 11/09/23 07:28 11/09/23 07:28 11/09/23 07:28 11/09/23 07:28 11/09/23 08:44 11/09/23 08:44 11/09/23 08:01 Laboratory Results - last 24 hr 11/08/23 07:30: Vitamin B12 > 1000 H 11/08/23 09:14: Chlamy pneumoniae PCR Not detected, Adenovirus (PCR) Not detected, B. pertussis DNA (PCR) Not detected, Coronavirus OC43 (PCR) Not detected, Coronavirus HKU1 (PCR) Not detected, Coronavirus 229E (PCR) Not detected, SARS-CoV-2 (PCR) Not detected, Coronavirus NL63 (PCR) Not detected, Human Metapneumovir PCR Not detected, Influenza A (H1) PCR Not detected, Influ A (H1N1/09) PCR Not detected, Influenza A (H3) PCR Not detected, Influenza Type A (PCR) Not detected, Influenza Type B (PCR) Not detected, M. pneumoniae (PCR) Not detected, Parainfluenza 1 (PCR) Not detected, Parainfluenza 2 (PCR) Not detected, Parainfluenza 3 (PCR) Not detected, Parainfluenza 4 (PCR) Not detected, RSV (PCR) Not detected, Entero/Rhino (PCR) Not detected 11/08/23 11:15: Troponin I 0.01 11/09/23 05:37: WBC 6.2, RBC 4.13 L, Hgb 12.9, Hct 41.9, MCV 101.5 H, MCH 31.3 H , MCHC 30.9 L, RDW 14.8, Plt Count 298, MPV 7.5, Neut % (Auto) 70.4, Lymph % (Auto) 17.9, [place] % (Auto) 11.2 H, Eos % (Auto) 0.3, Baso % (Auto) 0.3, Neut # (Auto) 4.3, Lymph # (Auto) 1.1, [place] # (Auto) 0.7, Eos # (Auto) 0.0, Baso # (Auto) 0.0, Sodium 128 L, Potassium 4.2, Chloride 91 L, Carbon Dioxide 37 H, A nion Gap 4.2 L, BUN 14, Creatinine 0.60, Estimated Creat Clear 40, Estimated GFR 97, Est GFR ( Amer) 117, Glucose 94, Calcium 8.7, Magnesium 2.1, Total Bilirubin 0.5, AST 54 H D, ALT 139 H, Alkaline Phosphatase 63, NT-Pro-B Natriuret Pep 2320 H, Total Protein 5.7 L, Albumin 3.3 L, Globulin 2.4, Albumin/Globulin Ratio 1.4 I & O for Labs for Last 24 Hours: Intake & Output 11/06/23 11/07/23 11/08/23 11/09/23 23:59 23:59 23:59 23:59 Intake Total 720 / 720 Output Total 0 / 0 0 / 0 Balance 720 / 720 0 / 0 Weight 109 lb 118 lb 8 oz Constitutional: Present moderate distress Head: Present normocephalic and atraumatic ENT: Present normal exam, normal oropharynx and mucous membranes moist Neck: Present normal inspection and full ROM Respiratory: Present able to speak in complete sentences; Absent prolonged expiratory phase, respiratory distress, wheezes or diminished air movement Cardiac: Present S1/S2, Tachycardia and radial pulses present GI: Present soft and distention; Absent tenderness or guarding Rectal (female): Present deferred (female): Present deferred Skin: Present intact; Absent cyanosis or jaundice Neuro: Present alert, awake and oriented x 3 Extremities: Present normal inspection; Absent clubbing or cyanosis Psychiatric: Present normal affect and cooperative Meds Home Medications and Allergies Home Medications ?Medication ?Instructions ?Recorded ?Confirmed ?Type hydralazine 50 mg tablet 50 mg PO TID 08/31/22 11/08/23 History nadolol 40 mg tablet 20 mg PO BID 10/04/22 11/08/23 History cholecalciferol (vitamin D3) 125 125 mcg PO DAILY 11/02/22 11/08/23 History mcg (5,000 unit) capsule diclofenac sodium 75 mg 75 mg PO BID #60 tabs 04/02/23 11/08/23 Rx tablet,delayed release hydrocodone 5 mg-acetaminophen 325 1 tab PO BID #28 tabs 10/25/23 11/08/23 Rx mg tablet alprazolam 0.5 mg tablet 0.5 mg PO QIDP PRN Anxiety 11/08/23 11/08/23 History citalopram 40 mg tablet 20 mg PO BID 11/08/23 11/08/23 History levothyroxine 175 mcg tablet 150 mcg PO DAILY 11/08/23 11/08/23 History mecobalamin (vitamin B12) 2,500 2,500 mcg PO DAILY 11/08/23 11/08/23 History mcg chewable tablet potassium 99 mg tablet 99 mg PO DAILY 11/08/23 11/08/23 History albuterol sulfate 90 mcg/actuation 2 puff inhalation Q6H PRN 11/09/23 Rx aerosol inhaler shortness of breath or wheezing #8.5 grams amlodipine 2.5 mg tablet 2.5 mg PO DAILY 30 days #30 tabs 11/09/23 Rx bumetanide 1 mg tablet 1 mg PO BIDL 30 days #60 tabs 11/09/23 Rx empagliflozin 10 mg tablet 10 mg PO DAILY 30 days #30 tabs 11/09/23 Rx (Jardiance) glycopyrrolate 9 mcg-formoterol 2 puff inhalation BID #10.7 grams 11/09/23 Rx 4.8 mcg HFA aerosol inhaler (Bevespi Aerosphere) irbesartan 150 mg tablet 150 mg PO DAILY 30 days #30 tabs 11/09/23 Rx nicotine 21 mg/24 hr daily 21 mg transdermal DAILY #28 ea 11/09/23 Rx transdermal patch prednisone 20 mg tablet 40 mg (2 x 20 mg) PO DAILY 3 days 11/09/23 Rx #6 tabs spironolactone 25 mg tablet 25 mg PO DAILY 30 days #30 tabs 11/09/23 Rx New Prescriptions to Start Prescriptions: albuterol sulfate Al Bailey amlodipine Leo,Al bumetanide Al Bailey empagliflozin [Jardiance] Al Bailey glycopyrrolate-formoterol [Bevespi Aerosphere] Leo,Al irbesartan Leo,Al nicotine Leo,Al prednisone Leo,Al spironolaAl Vásquez Allergies Allergy/AdvReac Type Severity Reaction Status Date / Time doxycycline Allergy Mild Unknown Verified 11/08/23 07:35 allergy reaction adhesive Allergy Unknown Unknown Verified 11/08/23 07:35 allergy reaction Antihistamines - Allergy Unknown Unknown Verified 11/08/23 07:35 Ethylenediamine allergy reaction diclofenac Allergy Unknown Unknown Verified 11/08/23 05:09 allergy reaction latex [LATEX] Allergy Unknown Rash Verified 11/08/23 05:09 duloxetine AdvReac Unknown Fatigued Verified 11/08/23 05:09 ketoprofen AdvReac Unknown I-RASH Verified 10/30/23 13:45 amoxicillin AdvReac Diarrhea Verified 10/30/23 13:45 Results Laboratory Findings 11/09/23 05:37 11/09/23 05:37 PT/INR, D-dimer PT 11.2 seconds (10.1-12.5) 11/08/23 04:50 INR 1.00 (0.9-1.1) 11/08/23 04:50 Abnormal lab findings: Abnormal Labs 11/08/23 11/08/23 11/08/23 04:50 05:05 07:30 RBC 4.04 L MCV 100.3 H MCH 31.7 H MCHC 31.6 L [place] % (Auto) VBG pCO2 59.9 H VBG pO2 24.9 L VBG HCO3 32.7 H VBG Total CO2 34.5 H VBG O2 Saturation 45.1 L VBG Base Excess 7.2 H Sodium 124 L Chloride 89 L Carbon Dioxide 34 H Anion Gap 4.5 L Creatinine 0.50 L Glucose 130 H Calcium 7.9 L AST 97 H ALT 158 H NT-Pro-B Natriuret Pep 3580 H Total Protein 5.9 L Albumin Vitamin B12 > 1000 H 11/09/23 05:37 RBC 4.13 L MCV 101.5 H MCH 31.3 H MCHC 30.9 L [place] % (Auto) 11.2 H VBG pCO2 VBG pO2 VBG HCO3 VBG Total CO2 VBG O2 Saturation VBG Base Excess Sodium 128 L Chloride 91 L Carbon Dioxide 37 H Anion Gap 4.2 L Creatinine Glucose Calcium AST 54 H D ALT 139 H NT-Pro-B Natriuret Pep 2320 H Total Protein 5.7 L Albumin 3.3 L Vitamin B12 Assessment and Plan *Assessment and plan (1) Respiratory failure: Status: Acute Category: Medical Code(s): J96.90 - Respiratory failure, unspecified, unspecified whether with hypoxia or hypercapnia (2) Emphysema/COPD: Status: Acute Category: Medical Code(s): J43.9 - Emphysema, unspecified (3) Pleural effusion: Status: Acute Category: Medical Code(s): J90 - Pleural effusion, not elsewhere classified Plan Ms. Braxton is a 78-year-old female greater than [id number] smoking history last moved around 2 to 4 years ago carries a diagnosis of COPD not using any long-acting inhalers continue albuterol 3 times daily presented to the hospital worsening respiratory distress and pulmonary was called for further evaluation and management. Afebrile. Hemodynamically stable. No evidence of leukocytosis. VBG on admission consistent with hypoxic respiratory failure. Mild hypercarbia noted with a pH of 7.[address] chest upon admission bilateral diffuse emphysematous changes. Right middle lobe nodular opacity noted. Small left pleural effusion noted. No other consolidative/airspace disease noted. No evidence of pulmonary embolism noted. CT also reported to have right heart strain reflux of IV contrast into IVC and hepatic veins. Echocardiogram pending. Patient currently being managed for COPD exacerbation nebulization therapies and steroids. She is also receiving diuretics. On examination patient does not appear to be in any respiratory distress. Bilateral clear breath sounds. On room air saturating greater than 90%. Prefer not to use powder-based inhaler therapies. Will discharge the patient on Bevespi inhaler 2 puffs twice daily Albuterol every 6 hours and as needed patient Follow with final echocardiogram report regarding concerning right heart failure. # Right middle lobe nodule: History of breast cancer status post recurrence. Due to undergo biopsy again in November. CTA showed right middle lobe pleural-based likely atelectasis/scarring which are predominantly stable from her prior CT from November 2022. Plan: Monitor clinically and continue annual low-dose CT screening/breast cancer surveillance scans # Thank you for involving pulmonary in this patient care. Will continue to follow.
--- NOTE | 2023-11-09 10:17 | P.PN_ITS ---
Subjective Subjective Date: 11/09/23 Time: 08:00 Principal diagnosis: COPD, acute hypoxic respiratory failure, volume overload Interval history: Morning labs reviewed Exam Data for Last 24 hours Vital signs and Labs for Last 24 Hours: Temp Pulse Resp BP Pulse Ox O2 Del Method O2 Flow Rate 96.9 F L 60 18 160/83 H 92 L Nasal Cannula 2 11/09/23 07:28 11/09/23 07:28 11/09/23 07:28 11/09/23 07:28 11/09/23 08:44 11/09/23 09:59 11/09/23 09:59 Laboratory Results - last 24 hr 11/08/23 09:14: Chlamy pneumoniae PCR Not detected, Adenovirus (PCR) Not detected, B. pertussis DNA (PCR) Not detected, Coronavirus OC43 (PCR) Not detected, Coronavirus HKU1 (PCR) Not detected, Coronavirus 229E (PCR) Not detected, SARS-CoV-2 (PCR) Not detected, Coronavirus NL63 (PCR) Not detected, Human Metapneumovir PCR Not detected, Influenza A (H1) PCR Not detected, Influ A (H1N1/09) PCR Not detected, Influenza A (H3) PCR Not detected, Influenza Type A (PCR) Not detected, Influenza Type B (PCR) Not detected, M. pneumoniae (PCR) Not detected, Parainfluenza 1 (PCR) Not detected, Parainfluenza 2 (PCR) Not detected, Parainfluenza 3 (PCR) Not detected, Parainfluenza 4 (PCR) Not detected, RSV (PCR) Not detected, Entero/Rhino (PCR) Not detected 11/08/23 11:15: Troponin I 0.01 11/09/23 05:37: WBC 6.2, RBC 4.13 L, Hgb 12.9, Hct 41.9, MCV 101.5 H, MCH 31.3 H , MCHC 30.9 L, RDW 14.8, Plt Count 298, MPV 7.5, Neut % (Auto) 70.4, Lymph % (Auto) 17.9, [place] % (Auto) 11.2 H, Eos % (Auto) 0.3, Baso % (Auto) 0.3, Neut # (Auto) 4.3, Lymph # (Auto) 1.1, [place] # (Auto) 0.7, Eos # (Auto) 0.0, Baso # (Auto) 0.0, Sodium 128 L, Potassium 4.2, Chloride 91 L, Carbon Dioxide 37 H, Anion Gap 4.2 L, BUN 14, Creatinine 0.60, Estimated Creat Clear 40, Estimated GFR 97, Est GFR ( Amer) 117, Glucose 94, Calcium 8.7, Magnesium 2.1, Total Bilirubin 0.5, AST 54 H D, ALT 139 H, Alkaline Phosphatase 63, NT-Pro-B Natriuret Pep 2320 H, Total Protein 5.7 L, Albumin 3.3 L, Globulin 2.4, Albumin/Globulin Ratio 1.4 I & O for Last 24 hours: Intake & Output 11/06/23 11/07/23 11/08/23 11/09/23 23:59 23:59 23:59 23:59 Intake Total 720 / 720 Output Total 0 / 0 0 / 0 Balance 720 / 720 0 / 0 Weight 109 lb 118 lb 8 oz Constitutional Constitutional: no acute distress *Routine Respiratory Exam Respiratory: Present CTA bilaterally and symmetric chest movement *Routine Cardiovascular Exam Cardiovascular: Present RRR, Normal S1 and Normal S2 *Routine Abdominal Exam Abdominal: Present soft and normoactive bowel sounds; Absent tenderness *Routine Extremities Exam Extremities: Present full ROM and normal capillary refill; Absent edema *Routine Skin Exam Skin: Present intact, dry and warm Detailed Neck Exam: Thyroids Thyroid: Absent bruit Progress Note: A&P Assessment and plan (1) Acute on chronic heart failure with preserved ejection fraction (HFpEF): Status: Acute (2) Tobacco dependence: Status: Acute (3) COPD (chronic obstructive pulmonary disease): Status: Acute (4) Respiratory failure: Status: Acute Assessment and Plan Assessment and Plan for All Diagnoses:: Acute on chronic hypoxic respiratory failure Known COPD Tobacco dependence HFpEF/Right sided heart failure Pulmonary HTN Preliminary echo shows normal LV function, moderate TR, mild reduction in RV function, moderate MR, RVSP 55-60 CTA chest: Negative for PE, centrilobular emphysema present, calcified coronary artery disease, right heart strain with reflux of IV contrast into the IVC and hepatic veins with RV/LV ratio elevated, small left pleural effusion, 4 cm infrarenal abdominal aortic BNP 3580 Change IV bumux to Bumex 1 mg p.o. twice daily and continue Jardiance 10 mg p.o. daily Continue Aldactone 25 mg p.o. daily Continue bisoprolol 5 mg p.o. daily Continue amlodipine 2.5 mg p.o. daily for pulmonary hypertension Pulmonology consult pending [id number] Continue beta-nohemy and irbesartan Transaminitis-improving Today AST is 54 and ALT is 139 Defer to primary service Hyponatremia-improving Today sodium is 128 Recurrent breast cancer on left side Defer to primary service CV summary 11/09/2023: Patient is CV stable, cardiology will sign off. Please continue below listed medications and have patient follow-up in cardiology clinic in 1 week. Cardiac meds Bumex 1 mg p.o. twice daily Jardiance 10 mg p.o. daily Aldactone 25 mg p.o. daily Amlodipine 2.5 mg p.o. daily Bisoprolol 5 mg p.o. daily Irbesartan 150 mg p.o. daily
--- NOTE | 2023-11-09 11:38 | P.DS_ITS ---
General Admission date:: 11/08/23 Discharge date: 11/09/23 HPI HPI HPI: This is a 78-year-old female who presents to [facility] emergency department with concerns of shortness of air. The patient identifies a chronic tobacco dependence history with previously assessed emphysema on no home O2 or inhalers. The patient reports 2 to 3 days of feeling weak with acute on chronic cough that she attributes to her tobacco use history. She denies fever, chills, confusion or purulent production. She denies hemoptysis. She has identified increasing shortness of air worse with exertion but no pain with inspiration. Chronic lower extremity edema worse over the last 2 to 3 days. In the ED she required oxygen therapy to maintain appropriate oxygen saturations and her chest x-ray identified no infiltrates or opacities. Her labs were significant for hyponatremia and transaminitis. Hospital Course Hospital Course Hospital Course: This is a 78-year-old female with recurrent left breast cancer and recent oncology evaluation (10/30/2023) who presents with dyspnea and previously identified emphysema. She reports no home oxygen or inhaler therapy. She reports ongoing tobacco dependence. Given her new oxygen requirement, admitted for acute hypoxemic respiratory failure, COPD exacerbation, CHF exacerbation. Cardiology and pulmonology consulted during admission to assist with care. Found to have significant diastolic dysfunction. Able to wean to room air at rest by day of discharge. Initiated on goal-directed therapy. Will of close follow-up as an outpatient. Stable to discharge home. Problems addressed as follows: Acute on chronic hypoxic and hypercapnic respiratory failure COPD exacerbation Tobacco dependence Initiated on supplemental oxygen. Given diastolic dysfunction/dilated right side of her heart with negative CT for PEs, patient initiated on diuretics. Saw significant improvement with diuresis. Breathing treatments as needed every 6 hours. Chest imaging consistent with emphysema. Initiated on prednisone to complete 5 days of steroids. Pulmonology consulted to assist with care. Recommend tobacco cessation. Initiated on nicotine patches. Also recommend close follow-up as an outpatient and initiation of Bevespi inhaler twice daily. Rescue inhaler with albuterol provided at discharge. Oxygen saturations dropped to 85% on room air during 6-minute walk test. Necessitating 2 L to recover back to normal levels. Recommend 2 L continuous oxygen at home at discharge. Acute on chronic HFpEF Pulmonary hypertension Hypertension Monitored on telemetry. BNP elevated at 3500. Improved to 2300 on day of discharge with diuresis. Cardiology consulted and patient initiated on goal- directed therapy. Was noted to have previous echo from 2020 with an EF of 55% and grade 1 diastolic dysfunction. Repeat echo obtained this visit showing severely elevated RVSP, preserved ejection fraction. Patient did on Bumex IV, transition to 1 mg twice daily orally at discharge. Continue Jardiance 10 mg daily for heart failure treatment. Initiated on Aldactone 25 mg daily. Continue nadolol 20 mg twice daily per home regimen. Initiated on amlodipine 2.5 mg daily for pulmonary hypertension. Additionally will transition her ARB from losartan to irbesartan for improved half-life and consistent duration of control during the day. Will make further adjustments of close follow-up with cardiology if blood pressure remains elevated. Showing improvement in oxygen requirement. Still has edema but improving by morning of discharge. Aortic aneurysm: Stable at 4 cm on ultrasound and CT. Needs repeat imaging in 1 year. Transaminitis-improving: Elevated on admission, consistent with hepatic congestion from her heart failure. Serial enzymes improving. Ultrasound obtained, no cirrhosis or significant insult to liver. Recurrent breast cancer on left side: Follows with oncology. Further management as an outpatient. Discussed goals of care given her multiple complexities in the setting of diastolic heart failure, COPD, recurrent breast cancer. Discussed concept of hospice if symptoms get to a point where she wants to focus on comfort and quality over curative measures. Patient appreciative of conversation. No decisions made about CODE STATUS at this time or change in plan. Wants to continue to pursue workup and treatment for breast cancer at this point. Chronically prescribed benzodiazepines Anxiety Continue alprazolam 0.5 mg 4 times as needed, citalopram 20 mg twice daily. In light of her chronic pain: Recently started on hydrocodone. Takes 2.5 mg twice daily. Counseled on risks of this medication concurrent with benzodiazepines. Patient states understanding. Hypothyroidism TSH well-controlled at 1.2. Continue home red men of levothyroxine 150 mcg daily. Total time spent on discharge 60 minutes in counseling, documentation, chart review, and direct care with patient. Exam Data for Last 24 hours Vital signs and Labs for Last 24 Hours: Temp Pulse Resp BP Pulse Ox O2 Del Method O2 Flow Rate 97.5 F L 58 L 18 147/69 H 97 Room Air 2 11/09/23 11:33 11/09/23 11:33 11/09/23 11:33 11/09/23 11:33 11/09/23 11:33 11/09/23 11:33 11/09/23 09:59 Laboratory Results - last 24 hr 11/08/23 11:15: Troponin I 0.01 11/09/23 05:37: WBC 6.2, RBC 4.13 L, Hgb 12.9, Hct 41.9, MCV 101.5 H, MCH 31.3 H , MCHC 30.9 L, RDW 14.8, Plt Count 298, MPV 7.5, Neut % (Auto) 70.4, Lymph % (Auto) 17.9, [place] % (Auto) 11.2 H, Eos % (Auto) 0.3, Baso % (Auto) 0.3, Neut # (Auto) 4.3, Lymph # (Auto) 1.1, [place] # (Auto) 0.7, Eos # (Auto) 0.0, Baso # (Auto) 0.0, Sodium 128 L, Potassium 4.2, Chloride 91 L, Carbon Dioxide 37 H, Anion Gap 4.2 L, BUN 14, Creatinine 0.60, Estimated Creat Clear 40, Estimated GFR 97, Est GFR ( Amer) 117, Glucose 94, Calcium 8.7, Magnesium 2.1, Total Bilirubin 0.5, AST 54 H D, ALT 139 H, Alkaline Phosphatase 63, NT-Pro-B Natriuret Pep 2320 H, Total Protein 5.7 L, Albumin 3.3 L, Globulin 2.4, Albumin/Globulin Ratio 1.4 I & O for Last 24 hours: Intake & Output 11/06/23 11/07/23 11/08/23 11/09/23 23:59 23:59 23:59 23:59 Intake Total 720 / 720 240 / 240 Output Total 0 / 0 0 / 0 Balance 720 / 720 240 / 240 Weight 49.442 kg 53.751 kg Constitutional Constitutional: no acute distress, average body habitus, chronically ill appearing and cooperative *Routine HEENT Exam Head: Present normocephalic and atraumatic Eye: Present EOMI and PERRL ENT: Present mucous membranes moist *Routine Neck Exam Neck: Present supple *Routine Respiratory Exam Respiratory: Present CTA bilaterally and symmetric chest movement; Absent rhonchi, wheezes or crackles *Routine Cardiovascular Exam Cardiovascular: Present RRR, Normal S1 and Normal S2 *Routine Abdominal Exam Abdominal: Present soft and normoactive bowel sounds; Absent tenderness *Routine Rectal Exam Patient deferred: visual exam *Routine Exam Patient deferred: external exam *Routine Extremities Exam Extremities: Present edema (3+ to knees), full ROM and normal capillary refill *Routine Skin Exam Skin: Present intact, dry and warm *Routine Neurological Exam Neurological: Present alert, oriented X3 and moving all extremities; Absent altered mental status Detailed Neck Exam: Thyroids Thyroid: Absent bruit Results Data Completed and Pending Labs on day of discharge: Labs from last 24 hours 11/09/23 11/08/23 05:37 11:15 WBC 6.2 RBC 4.13 L Hgb 12.9 Hct 41.9 MCV 101.5 H MCH 31.3 H MCHC 30.9 L RDW 14.8 Plt Count 298 MPV 7.5 Neut % (Auto) 70.4 Lymph % (Auto) 17.9 [place] % (Auto) 11.2 H Eos % (Auto) 0.3 Baso % (Auto) 0.3 Neut # (Auto) 4.3 Lymph # (Auto) 1.1 [place] # (Auto) 0.7 Eos # (Auto) 0.0 Baso # (Auto) 0.0 Sodium 128 L Potassium 4.2 Chloride 91 L Carbon Dioxide 37 H Anion Gap 4.2 L BUN 14 Creatinine 0.60 Estimated Creat Clear 40 Estimated GFR 97 Est GFR ( Amer) 117 Glucose 94 Calcium 8.7 Magnesium 2.1 Total Bilirubin 0.5 AST 54 H D ALT 139 H Alkaline Phosphatase 63 Troponin I 0.01 NT-Pro-B Natriuret Pep 2320 H Total Protein 5.7 L Albumin 3.3 L Globulin 2.4 Albumin/Globulin Ratio 1.4 DS: Diagnosis Discharge Diagnosis (1) Acute on chronic heart failure with preserved ejection fraction (HFpEF): Status: Acute Code(s): I50.33 - Acute on chronic diastolic (congestive) heart failure (2) Tobacco dependence: Status: Acute Code(s): F17.200 - Nicotine dependence, unspecified, uncomplicated (3) COPD (chronic obstructive pulmonary disease): Status: Acute Code(s): J44.9 - Chronic obstructive pulmonary disease, unspecified (4) Respiratory failure: Status: Acute Code(s): J96.90 - Respiratory failure, unspecified, unspecified whether with hypoxia or hypercapnia (5) Pleural effusion: Status: Acute Code(s): J90 - Pleural effusion, not elsewhere classified (6) Emphysema/COPD: Status: Acute Code(s): J43.9 - Emphysema, unspecified (7) Transaminitis: Status: Acute Code(s): R74.01 - Elevation of levels of liver transaminase levels (8) Hypothyroid: Status: Acute Code(s): E03.9 - Hypothyroidism, unspecified (9) Recurrent breast cancer: Status: Acute Code(s): C50.919 - Malignant neoplasm of unspecified site of unspecified female breast (10) Chronically on benzodiazepine therapy: Status: Acute Code(s): Z79.899 - Other terminal gauger (current) drug therapy Meds Home Medications and Allergies Home Medications ?Medication ?Instructions ?Recorded ?Confirmed ?Type hydralazine 50 mg tablet 50 mg PO TID 08/31/22 11/08/23 History nadolol 40 mg tablet 20 mg PO BID 10/04/22 11/08/23 History cholecalciferol (vitamin D3) 125 125 mcg PO DAILY 11/02/22 11/08/23 History mcg (5,000 unit) capsule diclofenac sodium 75 mg 75 mg PO BID #60 tabs 04/02/23 11/08/23 Rx tablet,delayed release hydrocodone 5 mg-acetaminophen 325 1 tab PO BID #28 tabs 10/25/23 11/08/23 Rx mg tablet alprazolam 0.5 mg tablet 0.5 mg PO QIDP PRN Anxiety 11/08/23 11/08/23 History citalopram 40 mg tablet 20 mg PO BID 11/08/23 11/08/23 History levothyroxine 175 mcg tablet 150 mcg PO DAILY 11/08/23 11/08/23 History mecobalamin (vitamin B12) 2,500 2,500 mcg PO DAILY 11/08/23 11/08/23 History mcg chewable tablet potassium 99 mg tablet 99 mg PO DAILY 11/08/23 11/08/23 History albuterol sulfate 90 mcg/actuation 2 puff inhalation Q6H PRN 11/09/23 Rx aerosol inhaler shortness of breath or wheezing #8.5 grams amlodipine 2.5 mg tablet 2.5 mg PO DAILY 30 days #30 tabs 11/09/23 Rx bumetanide 1 mg tablet 1 mg PO BIDL 30 days #60 tabs 11/09/23 Rx empagliflozin 10 mg tablet 10 mg PO DAILY 30 days #30 tabs 11/09/23 Rx (Jardiance) glycopyrrolate 9 mcg-formoterol 2 puff inhalation BID #10.7 grams 11/09/23 Rx 4.8 mcg HFA aerosol inhaler (Bevespi Aerosphere) irbesartan 150 mg tablet 150 mg PO DAILY 30 days #30 tabs 11/09/23 Rx nicotine 21 mg/24 hr daily 21 mg transdermal DAILY #28 ea 11/09/23 Rx transdermal patch prednisone 20 mg tablet 40 mg (2 x 20 mg) PO DAILY 3 days 11/09/23 Rx #6 tabs spironolactone 25 mg tablet 25 mg PO DAILY 30 days #30 tabs 11/09/23 Rx New Prescriptions to Start Prescriptions: albuterol sulfate Leo,Al amlodipine Leo,Al bumetanide Leo,Al empagliflozin [Jardiance] Leo,Al glycopyrrolate-formoterol [Bevespi Aerosphere] Leo,Al irbesartan Leo,lA nicotine Leo,Al prednisone Leo,Al spironolactone Leo,Al Allergies Allergy/AdvReac Type Severity Reaction Status Date / Time doxycycline Allergy Mild Unknown Verified 11/08/23 07:35 allergy reaction adhesive Allergy Unknown Unknown Verified 11/08/23 07:35 allergy reaction Antihistamines - Allergy Unknown Unknown Verified 11/08/23 07:35 Ethylenediamine allergy reaction diclofenac Allergy Unknown Unknown Verified 11/08/23 05:09 allergy reaction latex [LATEX] Allergy Unknown Rash Verified 11/08/23 05:09 duloxetine AdvReac Unknown Fatigued Verified 11/08/23 05:09 ketoprofen AdvReac Unknown I-RASH Verified 10/30/23 13:45 amoxicillin AdvReac Diarrhea Verified 10/30/23 13:45 Discharge Plan Disposition Patient Disposition: Home, Self-Care Condition: Fair Discharge Order Discharge Orders: Discharge Order (Routine); Ordered 11/09/23 Ordered By: Al Bailey Follow up Plan Follow up with: Shai Yang MD [Physician] - 11/23/23 10:00 am Nae Cortés APRN [Nurse Practitioner] - 11/15/23 10:15 am Dale Kirkland MD [Staff Physician] - 11/15/23 2:00 pm Prescriptions/Medication Reconciliation: New amlodipine 2.5 mg Tablet 2.5 mg PO DAILY 30 Days Qty: 30 0RF Jardiance 10 mg Tablet 10 mg PO DAILY 30 Days Qty: 30 0RF nicotine 21 mg/24 hr Patch 24 Hour 21 mg transdermal DAILY Qty: 28 2RF prednisone 20 mg Tablet 40 mg PO DAILY 3 Days Qty: 6 0RF spironolactone 25 mg Tablet 25 mg PO DAILY 30 Days Qty: 30 0RF irbesartan 150 mg Tablet 150 mg PO DAILY 30 Days Qty: 30 0RF bumetanide 1 mg tablet 1 mg PO BIDL 30 Days Qty: 60 0RF Bevespi Aerosphere 9-4.8 mcg HFA aerosol inhaler 2 puff inhalation BID Qty: 10.7 0RF albuterol sulfate 90 mcg/actuation HFA aerosol inhaler 2 puff inhalation Q6H PRN (Reason: shortness of breath or wheezing) Qty: 8.5 0RF Continued cholecalciferol (vitamin D3) 125 mcg (5,000 unit) capsule 125 mcg PO DAILY hydrocodone-acetaminophen 5-325 mg tablet 1 tab PO BID Qty: 28 0RF nadolol 40 mg tablet 20 mg PO BID diclofenac sodium 75 mg tablet,delayed release (DR/EC) 75 mg PO BID Qty: 60 0RF levothyroxine 175 mcg tablet 150 mcg PO DAILY citalopram 40 mg tablet 20 mg PO BID alprazolam 0.5 mg tablet 0.5 mg PO QIDP PRN (Reason: Anxiety) mecobalamin (vitamin B12) 2,500 mcg Tablet,Chewable 2,500 mcg PO DAILY Held hydralazine 50 mg tablet 50 mg PO TID Hold Instructions: pending follow-up with cardiology Patient Comments: TAKE 1 TABLET BY MOUTH THREE TIMES DAILY potassium 99 mg Tablet 99 mg PO DAILY Hold Instructions: pending repeat labs and potassium levels Discontinued losartan 100 MG tablet 100 mg PO DAILY furosemide 40 mg tablet 20 mg PO BID Other Ambulatory Orders: Home Medical Equipment (Routine) Location: None Selected Ordered By: Al Bailey Basic Metabolic Panel (Routine) Timeframe: 4 Days Facility: [facility] - Location: Laboratory Ordered By: Al Bailey Problem Reconciliation Problems Reviewed?: Yes Patient Discharge Instructions ACTIVITY: Continue current activity DIET: continue same diet Patient Instructions: DI for Chronic Obstructive Pulmonary Disease, DI for Hyponatremia, DI for Respiratory Failure Print Language: Syriac Providers Primary Care Provider: Joni Valente Admit Provider: Al Bailey Attending Provider: Al Bailey
--- NOTE | 2023-11-09 14:32 | CARE MANAGER ---
Patient requires Oxygen on discharge. Initially set up through [facility], but patient is [employer] Medicare HMO and will have to use [employer] due to insurance. [employer] was sent patient's information.
--- NOTE | 2023-11-13 15:24 | CARE MANAGER ---
Patient called back. Reports she is doing better. She is taking new medications and is aware of follow up appointments. Denies questions or concerns. LISANDRO Mcfadden
== END 2023-11-09 13:53 | disposition home or self-care (01) | DRG 291 ==
LOC: ER 06:04 → 2ND 06:25
PROVIDERS: Family Medicine; Admitting Provider Internal Medicine Adolescent Medicine; Emergency Provider Emergency Medicine; PCP Internal Medicine Adolescent Medicine; Visit Provider Internal Medicine Adolescent Medicine
DX: I50.33 Acute on chronic diastolic (congestive) heart failure; J44.1 Chronic obstructive pulmonary disease with (acute) exacerbation; E87.1 Hypo-osmolality and hyponatremia; R74.01 Elevation of levels of liver transaminase levels; C50.912 Malignant neoplasm of unspecified site of left female breast; Z79.899 Other long term (current) drug therapy; I11.0 Hypertensive heart disease with heart failure; Z79.51 Long term (current) use of inhaled steroids; I27.20 Pulmonary hypertension, unspecified; Z87.891 Personal history of nicotine dependence
CPT/HCPCS: 36415; 71045; 71275; 76705; 80050; 80053; 82607; 82803; 83735; 83880; 84439; 84443; 84484; 85025; 85610; 87581; 87632; 87635; 87798; 93005; 93306; 94618; 94640; 94761; 97162; 97165; 99291; J1650; J2919; J7620; Q9967

== ENCOUNTER 2023-11-13 12:36 | Outpatient (CLI) | payer MEDICARE, MEDICAID, SELFPAY ==
[2023-11-13 13:32] LABS: Chloride 88 mmol/L (98-107); Sodium 129 mmol/L (136-145)
[2023-11-13 13:33] LABS: Potassium 4.7 mmoL/L (3.5-5.1)
[2023-11-13 13:35] LABS: Blood Urea Nitrogen 19 mg/dl (7-17); Estimated Glomerular Filt Rate 97 ml/min (>60); GFR (African American) 117 ML/MIN (>60)
[2023-11-13 13:36] LABS: Anion Gap 6.7 mEq/L (5-15); Carbon Dioxide 39 mmol/L (22.0-30.0); Glucose 85 mg/dl (74-100)
== END 2023-11-13 23:59 | disposition home or self-care (01) ==
LOC: LAB 12:38
PROVIDERS: PCP Nurse Practitioner Family; Visit Provider Internal Medicine Adolescent Medicine
DX: I50.33 Acute on chronic diastolic (congestive) heart failure (principal)
CPT/HCPCS: 36415; 80048

== ENCOUNTER 2023-11-20 08:39 | Outpatient (CLI) | payer MEDICARE, MEDICAID, SELFPAY ==
--- NOTE | 2023-11-20 08:51 | US_ITS ---
FINAL REPORT CLINICAL HISTORY: RT BREAST MASS -- needle core bx -- dr arnaldo becker FINDINGS: ULTRASOUND-GUIDED RIGHT BREAST CORE BIOPSY HISTORY: Right breast nodule COMPARISON: Diagnostic mammogram and ultrasound 10/24/2023 TECHNIQUE: The right breast was prepped in a routine sterile fashion and locally anesthetized with 1% lidocaine. Lesion was localized at 10:00 near the right chest wall. Sonographic guidance was utilized. The needle was positioned within the outer periphery of the lesion. A total of 3 passes were made with a 16 gauge core biopsy needle. A biopsy marker clip was deployed in satisfactory position. Since biopsy marker clip was well seen, mammogram was not performed. Limited postbiopsy images showed no evidence of significant hemorrhage. Procedure was well tolerated. IMPRESSION: 1. Technically successful image guided biopsy of right breast lesion as above. Histopathology results reveal invasive ductal carcinoma.. Pathology is concordant with breast imaging findings. Oncologic follow-up recommended. Authenticated and ERN
== END 2023-11-20 23:59 | disposition home or self-care (01) ==
LOC: RAD 08:42
PROVIDERS: PCP Nurse Practitioner Family; Visit Provider Internal Medicine Medical Oncology
DX: C50.911 Malignant neoplasm of unspecified site of right female breast (principal); R92.8 Other abnormal and inconclusive findings on diagnostic imaging of breast
CPT/HCPCS: 19083; 88305; 88342; 88360

== ENCOUNTER 2023-11-23 11:42 | Outpatient (CLI) | payer MEDICARE, MEDICAID, SELFPAY ==
[2023-11-23 12:23] LABS: Chloride 93 mmol/L (98-107); Potassium 4.4 mmoL/L (3.5-5.1); Sodium 129 mmol/L (136-145)
[2023-11-23 12:26] LABS: Anion Gap 7.4 mEq/L (5-15); Blood Urea Nitrogen 18 mg/dl (7-17); Carbon Dioxide 33 mmol/L (22.0-30.0); Estimated Glomerular Filt Rate 81 ml/min (>60); GFR (African American) 98 ML/MIN (>60)
[2023-11-23 12:27] LABS: Glucose 97 mg/dl (74-100)
== END 2023-11-23 23:59 | disposition home or self-care (01) ==
LOC: LAB 11:43
PROVIDERS: PCP Nurse Practitioner Family; Visit Provider Nurse Practitioner Family
DX: I10 Essential (primary) hypertension (principal); F17.200 Nicotine dependence, unspecified, uncomplicated; I50.33 Acute on chronic diastolic (congestive) heart failure; J44.9 Chronic obstructive pulmonary disease, unspecified; R06.00 Dyspnea, unspecified; R60.9 Edema, unspecified
CPT/HCPCS: 36415; 80048

== ENCOUNTER 2023-12-06 10:46 | Outpatient (CLI) | payer MEDICARE, MEDICAID, SELFPAY ==
--- NOTE | 2023-12-06 | CA_ITS ---
APPROVED REPORT Exam: Pharmacologic Technologist: Symone Babcock, Ht: 5 ft 0 in Wt: 105 lbs BSA: 1.42 m2 HR: 58 bpm BP: 161/100 mmHg Rhythm: sinus jeanne, PVCs, vent couplet Indications: Dyspnea Medical History Medications: Amlodipine,,,,, Alprazolam,,,,, Irbesartan,,,,, Levothyroxine,,,,, Citalopram,,,,, Duoneb,,,,, Albuterol,,,,, Vit D3,,,,, Vit B12,,,,, Nadolol,,,,, Bevespi,,,,, Potassium,,,,, Cardiac Risk Factors: HTN, Smoking Stress Test Details Test: LEXISCAN HR Resting HR: 59 bpm Max Heart Rate (APMHR): 143 bpm Max HR Achieved: 80 bpm Target HR (85% APMHR): 122 bpm % of APMHR: 56 Recovery HR: 75 bpm BP Resting BP: 161.0/100.0 mmHg Max BP: 167.0/89.0 mmHg Recovery BP: 159.0/91.0 mmHg ECG Resting ECG: sinus jeanne, PVCs, ventricular couplet Stress ECG: No significant ST changes Arrhythmia: PVCs, couplet Clinical Exercise duration: 04:00 min Highest Stage Achieved: Exercise capacity: 1.0 METs Stress ECG Conclusion During lexiscan pt experinced mild SOA, abdominal pain, headache. No CP noted. Ectopy: Moderately frequent PVCs. Rare ventricular couplet. ST changes: No significant ST changes. Conclusion: Unremarkable lexiscan stress. Myoview images reported separately. Test Summary REST . . . . . . . Sitting REST . . . . . . . Sitting REST 08:27 . . 59 . 161/100 . . Stage 1 01:00 . . 65 . . . . Stage 2 01:00 . . 78 . . . . Stage 3 01:00 . . 75 . 159/ 84 . . Stage 4 01:00 . . 75 . 157/ 89 . Stop exercise at 04:00 RECOVERY 01:00 . . 78 . 159/ 91 . . RECOVERY 02:00 . . 74 . 159/ 91 . . RECOVERY 03:00 . . 77 . 167/ 89 . . RECOVERY 04:00 . . 72 . 161/ 83 . . RECOVERY 04:45 . . 74 . 161/ 83 . . Electronically signed by : Bobbi Kirkland MD 12/10/2023 12:16:50
--- NOTE | 2023-12-06 10:56 | NM_ITS ---
APPROVED REPORT Exam: Nuclear Stress Test Indication: soa..pre-op Patient Location: Outpatient Stress Tech: Symone ROSS Tech:Praveena Johnson BERHANEKevin RT(R)(N) Ht: 5 ft 1 in Wt: 106 lbs Bra Size: b HR: 59 bpm BP: 161/100 mmHg BSA: 1.44 m2 TID: 1.14 BMI: 20.0 History: soa..pre-op Procedure: Patient received 0.4 mg of intravenous Lexiscan, resting heart rate 59 bpm, resting blood pressure 161/100 mmHg, with Lexiscan maximum heart rate achieved was 80 bpm which is 85 % of the maximum predicted heart rate and blood pressure was 167/89 mmHg. With Lexiscan, patient denied any complaint of chest pain. The patient was not able to lay on her abdomen for prone images. Cardiac Stress and Resting SPECT Images: Cardiac Stress and Resting SPECT images were obtained using technetium 99m Myoview 30.8 mCi stress and 9.77 mCi at rest. The patient could not lie on her abdomen. Therefore, prone stress imaging could not be performed. This may affect the diagnostic interpretation of the study findings. Resting and stress imaging in supine positions demonstrate no evidence of fixed or reversible perfusion defects. Gated imaging demonstrates normal global and regional LV systolic function. LVEF is calculated at 52%. Of note, SPECT imaging suggests possible RV dilation. Correlation with new or recent TTE is suggested. Conclusion: No evidence of fixed or reversible perfusion defects. Gated imaging demonstrates normal global and regional LV systolic function. LVEF is calculated at 52%. Of note, SPECT imaging suggests possible RV dilation. Correlation with new or recent TTE is suggested. Electronically signed by : Bobbi Kirkland MD 12/10/2023 12:20:21
--- NOTE | 2023-12-06 10:56 | US_ITS ---
FINAL REPORT CLINICAL HISTORY: aaa COMPARISON: 11/08/2023 FINDINGS: Limited sonographic imaging of the abdomen was obtained. There is an upper and mid abdominal aortic aneurysm measuring up to 4 cm. Distal aorta is normal in caliber. There is moderate plaque and/or mural thrombus. IMPRESSION: Abdominal aortic aneurysm measuring up to 4 cm. Due to tortuosity of the aorta and involvement of the supraceliac abdominal aorta, follow-up would best be performed with CT. Reviewed, Interpreted and Dictated by Efe Truong MD Transcribed by Leela Lee Authenticated and [facility]
[2023-12-06] MEDS: ISOTOPE MYOVIEW (PER STUDY) 1 DOSE IV (13:52)
[2023-12-06] MEDS: SODIUM CHLORIDE 0.9% 10ML SYR (RAD ONLY) 10 ML IV ×2 (13:52)
[2023-12-06] MEDS: REGADENOSON 0.4MG/5ML SYRINGE 0.4 MG IV (13:52)
== END 2023-12-06 23:59 | disposition home or self-care (01) ==
LOC: RAD 10:48
PROVIDERS: PCP Nurse Practitioner Family; Visit Provider Nurse Practitioner Family
DX: I71.40 Abdominal aortic aneurysm, without rupture, unspecified (principal); R07.9 Chest pain, unspecified
CPT/HCPCS: 76705; 78452; 93017; 93018; A9502; J2785

== ENCOUNTER 2023-12-19 15:48 | Outpatient (CLI) | payer MEDICARE, MEDICAID, SELFPAY ==
[2023-12-19 16:33] LABS: Blood Urea Nitrogen 27 mg/dl (7-17); Calcium 9.3 mg/dl (8.4-10.2); Carbon Dioxide 33 mmol/L (22.0-30.0); Chloride 94 mmol/L (98-107); Estimated Glomerular Filt Rate 54 ml/min (>60); GFR (African American) 65 ML/MIN (>60); Glucose 89 mg/dl (74-100); Sodium 127 mmol/L (136-145)
== END 2023-12-19 23:59 | disposition home or self-care (01) ==
LOC: LAB 15:50
PROVIDERS: PCP Nurse Practitioner Family; Visit Provider Internal Medicine
DX: K21.9 Gastro-esophageal reflux disease without esophagitis (principal); I71.40 Abdominal aortic aneurysm, without rupture, unspecified; I27.20 Pulmonary hypertension, unspecified; R60.1 Generalized edema; R06.09 Other forms of dyspnea; J44.1 Chronic obstructive pulmonary disease with (acute) exacerbation; I50.33 Acute on chronic diastolic (congestive) heart failure; F17.200 Nicotine dependence, unspecified, uncomplicated; C50.919 Malignant neoplasm of unspecified site of unspecified female breast; I10 Essential (primary) hypertension
CPT/HCPCS: 36415; 80048

== ENCOUNTER 2023-12-25 13:48 | Outpatient (CLI) | payer MEDICARE, MEDICAID, SELFPAY ==
--- NOTE | 2023-12-25 13:53 | CA_ITS ---
APPROVED REPORT EXAM: Comprehensive 2D, Doppler, and color-flow Echocardiogram Mold Repair Technician: Seema Glass CRT Ht: 5 ft 1 in Wt: 107lbs BSA: 1.45 BP: 137/70 mmHg Indications: Shortness of Breath, Hyperlipidemia, Hypertension/HDD, SVT, CHF, AAA, Breast ca dx 2D Dimensions LA Volume 36.80 mL LA Volume Index 24.90 mL/m2 (M/F) 16-34 M-Mode Dimensions RVDd 3.08 cm (0.9-2.6) LA Diam 3.02 cm (1.9-4.0) LVDd 3.68 cm (3.5-5.7) LVDs 2.62 cm (3.5-5.7) IVSd 1.74 cm (0.6-1.1) PWd 0.62 cm (0.6-1.1) EF (Teich) 56.30% FS 28.80% EDV (Teich) 57.40 mL ESV (Teich) 25.10 mL LV Diastology E Decel Time 520 (160-240 msec) E/A Ratio 0.49 MED A' 12.10 cm/s LAT A' 9.10 cm/s Aortic Valve AO Peak GR. 11.00 mmHg Mitral Valve MV A Velocity 79.0 (40-130 cm/s) E/A Ratio 0.49 Pulmonary Valve PV Peak Velocity 103.0 (50-150 cm/s) Tricuspid Valve TR P. Velocity 342.00 cm/s RAP Estimate 10.00 mmHg RVSP 56.70 mmHg Left Ventricle The left ventricle is normal size. The left ventricular systolic function is normal. The left ventricular ejection fraction is within the normal range. There is increased LV wall thickness. There is normal LV segmental wall motion. The left ventricular diastolic function is normal. LVEF is 60%. Right Ventricle The right ventricle is normal size. The right ventricular systolic function is normal. Atria The left atrium is mildly dilated. The right atrium is mildly dilated. There is no Doppler evidence of interatrial shunt. Aortic Valve The aortic valve is mildly thickened. There is no aortic valvular stenosis. Trace aortic regurgitation. Mitral Valve The mitral valve leaflets are mildly thickened. No evidence of mitral valve stenosis. Trace mitral regurgitation. Tricuspid Valve The tricuspid valve leaflets are thin and pliable. Mild tricuspid regurgitation. RVSP is 40-45 mmHg. Pulmonic Valve The pulmonary valve is normal in structure. Trace pulmonic regurgitation. Great Vessels The aortic root is normal in size. The ascending aorta is not well-visualized. IVC is normal in size and collapses >50% with inspiration. Pericardium There is no pericardial effusion. Other Information Study Quality: Fair Conclusion Normal biventricular systolic function. Mild biatrial dilation. Mild TR. Elevated RVSP 40-45 mmHg. Compared to prior study, the RV dilation and severity of TR have improved. Electronically signed by : Bobbi Kirkland MD 12/26/2023 14:31:02
== END 2023-12-25 23:59 | disposition home or self-care (01) ==
LOC: RT 13:49
PROVIDERS: PCP Nurse Practitioner Family; Visit Provider Internal Medicine
DX: I51.7 Cardiomegaly (principal); I36.1 Nonrheumatic tricuspid (valve) insufficiency; I71.40 Abdominal aortic aneurysm, without rupture, unspecified; I27.20 Pulmonary hypertension, unspecified; R60.1 Generalized edema; R06.09 Other forms of dyspnea
CPT/HCPCS: 93306

== ENCOUNTER 2023-12-31 12:08 | Outpatient (CLI) | payer MEDICARE, MEDICAID, SELFPAY ==
[2023-12-31 12:13] LABS: Adenovirus F 40/41, stool Not Detected (NotDetected); Astrovirus Not Detected (NotDetected); Campylobacter Not Detected (NotDetected); Clostridium Difficile A/B, PCR Not Detected (NotDetected); Cryptosporidium Not Detected (NotDetected); Cyclospora Cayetanesis Not Detected (NotDetected); Entamoeba histolytica Not Detected (NotDetected); Enteroaggregative E coli Not Detected (NotDetected); Enteropathogenic E coli Not Detected (NotDetected); Enterotoxigenic E coli Not Detected (NotDetected); Giardia lamblia Not Detected (NotDetected); Norovirus Not Detected (NotDetected); Plesimonas Shigalloides, PCR Not Detected (NotDetected); Rotavirus A Not Detected (NotDetected); Salmonella, PCR Not Detected (NotDetected); Sapovirus Not Detected (NotDetected); Shiga-like toxin E coli Not Detected (NotDetected); Shigella Enterovasive E coli Not Detected (NotDetected); Vibrio Cholerae Not Detected (NotDetected); Vibrio, PCR Not Detected (NotDetected); Yersinia Entercolitica, PCR Not Detected (NotDetected)
== END 2023-12-31 23:59 | disposition home or self-care (01) ==
LOC: LAB 12:09
PROVIDERS: PCP Nurse Practitioner Family; Visit Provider Internal Medicine
DX: R19.7 Diarrhea, unspecified (principal); R63.4 Abnormal weight loss; R63.0 Anorexia
CPT/HCPCS: 87506

== ENCOUNTER 2024-01-15 09:39 | Outpatient (CLI) | payer MEDICARE, MEDICAID, SELFPAY ==
--- NOTE | 2024-01-15 09:39 | XR_ITS ---
FINAL REPORT TECHNIQUE: Bone densitometry calculations of the lumbar spine and left hip were obtained. CLINICAL HISTORY: post menopausal COMPARISON: None FINDINGS: Using L1-4, the bone mineral density of the spine is 0.939 g/cm2, corresponding to T-score of -1.0. This bone mineral density result may be artificially elevated secondary to bony sclerosis. Using the left forearm, the bone mineral density of the 1/3 is 0.335 g/cm2, corresponding to a T-score of -6.0. Using the right forearm, the bone mineral density of the 1/3 is 0.351 g/cm?, corresponding to a T-score of -5.7 NOTE: T-score: Standard deviation compared with peak bone mass of young adult mean. *Following the recommendations of the International Society of Bone Densitometry, classification of hip BMD is based on the lower of two T-scores; total hip or femoral neck. IMPRESSION: Osteoporosis: Lowest T-score is at or below -2.5. This patient's T-score meets the World Health Organization criteria for osteoporosis. Authenticated and ERN
== END 2024-01-15 23:59 | disposition home or self-care (01) ==
LOC: RAD 09:39
PROVIDERS: PCP Nurse Practitioner Family; Visit Provider Internal Medicine Pulmonary Disease
DX: Z78.0 Asymptomatic menopausal state (principal); Z85.3 Personal history of malignant neoplasm of breast
CPT/HCPCS: 77080

== ENCOUNTER 2024-01-17 13:01 | Outpatient (CLI) | payer MEDICARE, MEDICAID, SELFPAY ==
[2024-01-17] MEDS: ALBUTEROL 0.083% 2.5 MG/3 ML NEB IH (14:20)
== END 2024-01-17 23:59 | disposition home or self-care (01) ==
LOC: RT 13:02
PROVIDERS: PCP Nurse Practitioner Family; Visit Provider Internal Medicine Pulmonary Disease
DX: R06.09 Other forms of dyspnea (principal)
CPT/HCPCS: 94060; 94726; 94729; J7613

== ENCOUNTER 2024-01-23 15:06 | Outpatient (CLI) | payer MEDICARE, MEDICAID, SELFPAY ==
--- NOTE | 2024-01-23 15:07 | MM_ITS ---
PROCEDURE INFORMATION: Exam: MG Left Diagnostic Breast Tomosynthesis Exam date and time: 01/23/2024 2:52 PM Age: 78 years old Clinical indication: Family history of breast cancer; history of Breast cancer. screening, left TECHNIQUE: Imaging protocol: Left Diagnostic tomosynthesis and 2D mammography including computer-aided detection (CAD) when performed. Unilateral or bilateral exam. COMPARISON: MG MM DIG MAMM BI DX W/CAD 01/13/2022 2:03 PM FINDINGS: MAMMOGRAPHY: Breast composition: There are scattered areas of fibroglandular density. Breast mammogram findings: There is no stellate mass, suspicious architectural distortion or suspicious microcalcifications in either breast to suggest malignancy. Postoperative distortion in the left upper outer quadrant due to prior lumpectomy. Diffuse skin thickening on the left is due to radiation change. The patient is status post right mastectomy. No axillary adenopathy. IMPRESSION: No mammographic evidence of malignancy. Annual mammographic screening is recommended unless otherwise clinically indicated. ASSESSMENT: BI-RADS Category 2: Benign.
== END 2024-01-23 23:59 | disposition home or self-care (01) ==
LOC: RAD 15:07
PROVIDERS: PCP Nurse Practitioner Family; Visit Provider Internal Medicine Medical Oncology
DX: Z12.31 Encounter for screening mammogram for malignant neoplasm of breast (principal); Z85.3 Personal history of malignant neoplasm of breast
CPT/HCPCS: 77061; 77065; G0279

== ENCOUNTER 2024-04-08 14:15 | Outpatient (CLI) | payer MEDICARE, MEDICAID, SELFPAY ==
[2024-04-08 14:46] LABS: Basophils % 0.7 % (0.1-2.0); Eosinophils # 0.1 K/mm3 (0.0-0.4); Eosinophils % 2.3 % (0.1-12.0); Hematocrit 33.8 % (37.0-47.0); Hemoglobin 10.9 g/dL (12.2-16.2); Lymphocytes # 1.1 K/mm3 (0.7-4.5); Lymphocytes % 19.5 % (10-50); Mean Corpuscular HGB Conc 32.2 g/dL (31.8-35.4); Mean Corpuscular Hemoglobin 30.4 pg (27.0-31.2); Mean Corpuscular Volume 94.4 fl (81-99); Mean Platelet Volume 8.5 fl (7.4-10.4); Monocytes # 0.7 K/mm3 (0.1-1.0); Neutrophils # 3.8 K/mm3 (1.8-7.8); Neutrophils % 65.3 % (37.0-80.0); Platelet Count 220 K/mm3 (142-424); Red Blood Count 3.58 M/mm3 (4.20-5.40); Red Cell Distribution Width 12.6 % (11.5-17.5); White Blood Count 5.8 K/mm3 (4.8-10.8)
[2024-04-08 15:08] LABS: Alanine Aminotransferase 21 U/L (12-78); Albumin/Globulin Ratio 1.8 (1.1-1.8); Alkaline Phosphatase 48 U/L (38-126); Anion Gap 12.3 mEq/L (5-15); Aspartate Amino Transferase 23 U/L (14-36); Blood Urea Nitrogen 34 mg/dl (7-17); Calcium 9.3 mg/dl (8.4-10.2); Carbon Dioxide 29 mmol/L (22.0-30.0); Chloride 94 mmol/L (98-107); Estimated Glomerular Filt Rate 44 ml/min (>60); GFR (African American) 53 ML/MIN (>60); Globulin 2.2 g/dL (1.3-3.2); Glucose 95 mg/dl (74-100); Potassium 4.3 mmoL/L (3.5-5.1); Sodium 131 mmol/L (136-145); Total Protein,Serum 6.2 g/dl (6.3-8.2)
[2024-04-08 15:17] LABS: Bilirubin,Total 0.1 mg/dl (0.2-1.3)
[2024-04-08 15:25] LABS: 25-OH Vitamin D, Total 57.6 ng/mL (30-100)
== END 2024-04-08 23:59 | disposition home or self-care (01) ==
LOC: LAB 14:15
PROVIDERS: PCP Nurse Practitioner Family; Visit Provider Nurse Practitioner Family
DX: R60.9 Edema, unspecified (principal); E03.9 Hypothyroidism, unspecified; E55.9 Vitamin D deficiency, unspecified
CPT/HCPCS: 36415; 80053; 82306; 83735; 84443; 85025

== ENCOUNTER 2024-05-14 12:59 | Outpatient (CLI) | payer MEDICARE, MEDICAID, SELFPAY ==
--- NOTE | 2024-05-14 13:01 | CT_ITS ---
FINAL REPORT CLINICAL HISTORY: RML nodule COMPARISON: 11/08/2023 FINDINGS: CT CHEST without contrast COMPARISON: None . TECHNIQUE: Axial CT without contrast There is underlying emphysema. Scattered mild scarring is identified. There is no suspicious pulmonary nodule. The thoracic aorta is ectatic without aneurysm. There is an incompletely visualized abdominal aortic aneurysm measuring 40 mm on coronal images. The previously noted right heart enlargement relative to the left has improved. There is a subcutaneous presternal nodule measuring 16 mm, was 13 mm. This could be inflammatory or less likely neoplastic. No pleural or pericardial effusion is seen . No adenopathy or mass lesion is present . IMPRESSION: 1. No suspicious pulmonary nodule. 2. Incompletely visualized abdominal aortic aneurysm measures 40 mm, stable. 3. Resolved right heart strain relative to the left. 4. Enlarging subcutaneous presternal nodule. Correlate with direct exam. This study was performed using automated techniques to achieve radiation exposure as low as reasonably achievable Reviewed, Interpreted and Dictated by Efe Truong MD Transcribed by Becca Harmon Authenticated and [facility]
== END 2024-05-14 23:59 | disposition home or self-care (01) ==
LOC: RAD 12:59
PROVIDERS: PCP Nurse Practitioner Family; Visit Provider Internal Medicine Pulmonary Disease
DX: R91.8 Other nonspecific abnormal finding of lung field (principal)
CPT/HCPCS: 71250

== ENCOUNTER 2024-06-19 10:28 | Day surgery (SDC) | payer MEDICARE, MEDICAID, SELFPAY ==
--- NOTE | 2024-06-18 15:56 | SUR.PREOP ---
left detailed message on pt's voicemail. Also called pt's daughter who will be here with her tomorrow to verify arrival time. Daughter verbalized understanding
[2024-06-18 15:59] VITALS: BMI 22.1
[2024-06-19 10:45] VITALS: BP 142/77; PULSE 70; RESP 20; TEMP 36.3; O2SAT 96
[2024-06-19] MEDS: LIDOCAINE 1% 20ML MDV 20 ML (11:09)
--- NOTE | 2024-06-19 11:29 | EXP.OP.NOTE ---
Date of procedure: 06/19/24 Pre-op Diagnosis:: 1.5 cm cyst along mid anterior chest Post-op Diagnosis:: Same Procedure performed:: Excision of 1.5 cm mid anterior chest cyst Surgeon:: Del Damon MD Anesthesia: local Estimated blood loss (mL): 5 Operative findings:: Lesion excised in toto Operative note:: After informed consent was obtained the patient was taken to the procedure room. Her mid anterior chest was prepped and draped in a sterile fashion. After infiltration with local anesthetic an elliptical incision was made around the lesion. The lesion was excised sharply in toto and passed off for pathologic evaluation. Thermal cautery was utilized to achieve hemostasis. Skin was then reapproximated with 4-0 nylon in an interrupted mattress fashion. Dressings were applied and the patient was discharged home in stable condition. Condition: stable Disposition: no change Specimens:: Chest cyst Complications:: No immediate
[2024-06-19 11:30] VITALS: BP 120/49; PULSE 73; RESP 17; TEMP 36.4; O2SAT 98
== END 2024-06-19 11:30 | disposition home or self-care (01) ==
PROVIDERS: PCP Nurse Practitioner Family; Visit Provider Surgery
PROC: (CPT 11402; principal; 2024-06-19 11:15)
DX: L72.0 Epidermal cyst (principal)
CPT/HCPCS: 11402; 88304

== ENCOUNTER 2024-07-22 13:53 | Outpatient (CLI) | payer MEDICARE, MEDICAID, SELFPAY ==
--- NOTE | 2024-07-22 14:00 | US_ITS ---
PROCEDURE INFORMATION: Exam: US Right Breast, Complete Exam date and time: 07/22/2024 1:51 PM Age: 79 years old Clinical indication: Cancer of the breast; Right; Upper outer quadrant (uoq); Additional info: Breast cancer history protocal week june TECHNIQUE: Imaging protocol: Complete ultrasound of all four quadrants of the right breast and the retroareolar regions, including ultrasound of the axilla when performed. COMPARISON: US BIOPSY BREAST RT 11/20/2023 8:56 AM FINDINGS: ULTRASOUND: Breast ultrasound findings: Sonographic images of the right breast including the retroareolar region, all 4 quadrants and the axilla do not demonstrate any cystic masses. Previously biopsied carcinoma in the right 10 o'clock axis 7 cm from the nipple is significantly smaller on the current examination previously 1.3 x 0.9 x 1.2 cm and currently 0.8 x 0.6 x 0.8 cm. No architectural distortion or acoustical shadowing. No skin thickening or axillary adenopathy. IMPRESSION: Significant interval decrease in size of the biopsy-proven carcinoma in the right upper outer quadrant ASSESSMENT: BI-RADS Category 6: Known Biopsy-Proven Malignancy.
== END 2024-07-22 23:59 | disposition home or self-care (01) ==
LOC: RAD 13:54
PROVIDERS: PCP Nurse Practitioner Family; Visit Provider Internal Medicine Medical Oncology
DX: C50.411 Malignant neoplasm of upper-outer quadrant of right female breast (principal)
CPT/HCPCS: 76641

== ENCOUNTER 2024-08-12 15:02 | Outpatient (CLI) | payer MEDICARE, MEDICAID, SELFPAY ==
[2024-08-12 16:02] LABS: Basophils # 0.1 K/mm3 (0-0.2); Eosinophils # 0.2 Kmm3 (0.0-0.4); Eosinophils % 3.1 % (0.1-12.0); Hematocrit 34.7 % (37.0-47.0); Hemoglobin 11.4 g/dL (12.2-16.2); Immature Granulocytes # 0.02 10^3uL; Immature Granulocytes % 0.3 %; Lymphocytes # 1.3 K/mm3 (0.7-4.5); Lymphocytes % 21.2 % (10-50); Mean Corpuscular HGB Conc 32.9 g/dL (31.8-35.4); Mean Corpuscular Volume 94.3 fl (81-99); Mean Platelet Volume 8.8 fl (7.4-10.4); Monocytes # 0.7 K/mm3 (0.1-1.0); Monocytes % 11.2 % (1.7-9.3); Neutrophils # 3.8 K/mm3 (1.8-7.8); Neutrophils % 63.2 % (37.0-80.0); Nucleated Red Blood Cells # 0 10^3/uL; Nucleated Red Blood Cells % 0 %; Platelet Count 250 K/mm3 (142-424); Red Blood Count 3.68 M/mm3 (4.20-5.40); Red Cell Distribution Width 12.7 % (11.5-17.5); Red Cell Distribution Width-SD 44.2 fL; White Blood Count 6.1 K/mm3 (4.8-10.8)
[2024-08-12 16:52] LABS: Cholesterol 228 mg/dl (140-200); Triglycerides 226 mg/dl (30-150); VLDL Cholesterol 45 mg/dL (0-40)
[2024-08-12 16:53] LABS: HDL Cholesterol 57 mg/dl (40-60)
[2024-08-12 16:56] LABS: Alanine Aminotransferase 21 U/L (12-78); Albumin Level 4.1 g/dl (3.5-5.0); Albumin/Globulin Ratio 1.8 (1.1-1.8); Alkaline Phosphatase 50 U/L (38-126); Anion Gap 11.9 mEq/L (5-15); Aspartate Amino Transferase 23 U/L (14-36); Bilirubin,Total 0.2 mg/dl (0.2-1.3); Blood Urea Nitrogen 42 mg/dl (7-17); Calcium 9.1 mg/dl (8.4-10.2); Carbon Dioxide 29 mmol/L (22.0-30.0); Chloride 91 mmol/L (98-107); Estimated Glomerular Filt Rate 31 ml/min (>60); GFR (African American) 38 ML/MIN (>60); Globulin 2.3 g/dL (1.3-3.2); Glucose 90 mg/dl (74-100); Magnesium 2.2 mg/dl (1.6-2.3); Potassium 4.9 mmoL/L (3.5-5.1); Sodium 127 mmol/L (136-145); Total Protein,Serum 6.4 g/dl (6.3-8.2)
[2024-08-12 17:03] LABS: Direct LDL Cholesterol 103.76 mg/dL (100-129)
[2024-08-12 17:15] LABS: Free T4 (Free Thyroxine) 1.13 ng/dl (0.78-2.19)
[2024-08-12 17:29] LABS: Thyroid Stimulating Hormone 2.68 uIU/mL (0.465-4.68)
== END 2024-08-12 23:59 | disposition home or self-care (01) ==
LOC: LAB 15:06
PROVIDERS: PCP Nurse Practitioner Family; Visit Provider Internal Medicine
DX: E03.9 Hypothyroidism, unspecified (principal); I50.32 Chronic diastolic (congestive) heart failure; R60.9 Edema, unspecified
CPT/HCPCS: 36415; 80053; 80061; 83735; 84439; 84443; 85025

== ENCOUNTER 2024-08-19 13:11 | Outpatient (CLI) | payer MEDICARE, MEDICAID, SELFPAY ==
[2024-08-19] MEDS: ZOLEDRONIC ACID 4 MG in 0.9 % SODIUM CHLORIDE 100 ML 420 MG IV (13:26)
[2024-08-19] MEDS: SODIUM CHLORIDE 0.9% 50ML BAG 50 ML IV (13:27)
[2024-08-19 13:30] VITALS: BP 111/62; PULSE 71; RESP 18; TEMP 36.8; O2SAT 95
--- OUTSIDE RECORDS SUMMARY | 2024-08-19 13:31 | XMS_ITS | Encounter Summary ---
Author Organization [employer] Address [address] [place] [address] Care Team Providers Care Refining Still Operator Name Role Phone Unavailable Primary Care Provider Grady peres Encounter Details Date Type Department Care Team (Late st Contact Info) Description 07/15/2018 Transcribed Document [facility] [place] [facility] [place] [address] ProviderKristel MD [address] [place] [address] Social History Tobacco Use Types Packs/Day Years Used Date Smoking Tobacco: Never Assessed Comments Unknown Sex and Gender Information Value Date Recorded Sex Assigned at Female 09/06/2021 8:30 PM CDT Legal Sex Female 8:30 PM CDT Gender Identity Female 09/06/2021 8:30 PM CDT Sexual Orientation Not on file documented as of this encounter Miscellaneous Notes * [employer]ner Conversion Note - Historical ProviderMD - 07/15/2018 8:00 PM CDT Pain Assessment Entered On: 07/16/2018 2:48 EDT Performed On: 07/15/2018 22:16 EDT by Karina Zimmer LPN Intervention Information: traMADol Performed by Karina Zimmer LPN on 07/15/2018 21:16:00 EDT traMADol,50mg Oral Pain Assessment Pain Assessment : Follow-up assessment Pain Scale Goal : 4 Pain Scale Used : 0-10 Scale Karina Zimmer LPN - 07/16/2018 2:48 EDT Pain Scale Intensity : 3 Karina Zimmer LPN - 07/16/2018 2:48 EDT Image 4 - Images currently included in the form version of this document have not been included in the text rendition version of the form. documented in this encounter Plan of Treatment Not on file documented as of this encounter Visit Diagnoses Not on filedocumented in this encounter
--- OUTSIDE RECORDS SUMMARY | 2024-08-19 13:31 | XMS_ITS | Encounter Summary ---
Author Organization [employer] Address [address] [place] [address] Care Team Providers Care Teller Head Name Role Phone Unavailable Primary Care Provider Unavailabl e Encounter Details Date Type Department Care Team (Late st Contact Info) Description 07/15/2018 Transcribed Document [facility] [place] Pending sale [place] [address] ProviderKristel MD [place] [address] Social History Tobacco Use Types Packs/Day Years Used Date Smoking Tobacco: Never Assessed Comments Unknown Sex and Gender Information Value Date Recorded Sex Assigned at Female 09/06/2021 8:30 PM CDT Legal Sex Female 8:30 PM CDT Gender Identity Female 09/06/2021 8:30 PM CDT Sexual Orientation Not on file documented as of this encounter Miscellaneous Notes * Cerner Conversion Note - Kristel ProviderMD - 07/15/2018 8:01 AM CDT [facility] Main OR PreOp Summary Primary Physician: DEREK DURAN MD-ORT Finalized Date/Time: 07/15/18 12:30:00 Pt. Name: CINDY LABOY /Sex: 1945 Female Med Rec #: [id number] Physician: DEREK DURAN MD-ORT Financial #: [id number] Pt. Type: I Room/Bed: 3/ Admit/Disch: 07/15/18 04:51:00 - Institution: [facility] [place] PreOp Case Times Entry 1 In Preop 07/15/18 05:40:00 Ready for Holding n/a Room Patient Ready for 07/15/18 07:12:00 Surgery Patient Out of Preop 07/15/18 07:25:00 Patient Out of n/a Holding Room Last Modified By: CHADWICK CHAN 07/15/18 12:29:59 [facility] PreOp Case Times Audit 07/15/18 12:29:59 Plate Stacker: MAY Modifier: CATLETDD <+> 1 Patient Out of Preop Finalized By: CHADWICK CHAN Document Signatures Signed By: CHADWICK CHAN 07/15/18 12:30 documented in this encounter Plan of Treatment Not on file documented as of this encounter Visit Diagnoses Not on filedocumented in this encounter
--- OUTSIDE RECORDS SUMMARY | 2024-08-19 13:31 | XMS_ITS | Clinical Summary ---
Author Organization [email or web address] Address [address] [place] [address] Care Team Providers Care Plant Associate Name Role Phone Unavailable Primary Care Provider Unavailabl e Social History Tobacco Use Types Packs/Day Years Used Date Smoking Tobacco: Never Assessed Interpersonal Safety Answer Date Record ed Family or friends hurt you Not on file 03/30 Family or friends insult you Not on file Family or friends threaten you Not on file 0 03/30/2023 Family or friends scream or curse at you Not on file 03/30/2023 Housing Stability Answer Date Recorded Living situation today Not on file Living situation problems Not on file 2023 Food Insecurity Answer Date Recorded Food run out past 12 months Not on file 03/12 Food did not last past 12 months Not on file 03/30/2023 Employment Answer Date Recorded Help finding and keeping a job Not on file 0 03/30/2023 Family and Community Support Answer Minesh e Recorded Help with Day to Day Activities Not on file 03/30/2023 Feeling Lonely or Isolated Not on file 03/30 Educational Attainment Answer Date Bryson rded Speak language other than Turkish at home Not on file 03/30/2023 Want help with school or training Not on file 03/30/2023 Depression Answer Date Recorded PHQ-2 Risk Not on file 03/30/2023 Disabilities Answer Date Recorded Difficulty concentrating Not on file 024 Difficulty doing errands alone Not on file 0 03/30/2023 Substance Use Answer Date Recorded Used prescription meds for non-medical reasons N ot on file 03/30/2023 Used illegal drugs past 12 months Not on file 03/30/2023 Comments Unknown Sex and Gender Information Value Date Recorded Sex Assigned at Female 09/06/2021 8:30 PM CDT Legal Sex Female 8:30 PM CDT Gender Identity Female 09/06/2021 8:30 PM CDT Sexual Orientation Not on file Plan of Treatment Health Maintenance Due Date Last Done Comments DXA SCAN 1945 Depression Screening (12+) 1958 Tobacco Cessation Counseling and Screening (12+) 1958 Hepatitis C Screening 1964 Shingles Vaccine (Zoster) (1 of 2) 1996 Respiratory Syncytial Virus (RSV) Adult or (1 - 1-dose 75+ series) 2021 COVID-19 VACCINE (3 - 2023-2 5 season) 2023 05/19/2020, 04/21/2020 Falls Risk Screening 03/12/2024 Influenza Vaccine (Season Ended) 2024 01/19/2022, 12/29/2019, 12/31/2018, Additional history exists DTAP/TDAP/TD VACCINES (3 - T d or Tdap) 06/03/2031 06/02/2021, 05/16/1996 Pneumococcal 50+ years Completed 12/04/2016, 2015
--- OUTSIDE RECORDS SUMMARY | 2024-08-19 13:31 | XMS_ITS | Referral Summary ---
Author Organization [employer] Address [address] [place] [address] Care Team Providers Care Mechanic Sound Technician Name Role Phone Unavailable Primary Care Provider [...] Date Bryson rded Speak language other than Khmer at home Not on file 03/30/2023 Want [...] Orientation Not on file Plan of Treatment Not on file
--- OUTSIDE RECORDS SUMMARY | 2024-08-19 13:31 | XMS_ITS | Encounter Summary ---
Author Organization [email or web address] Address [address] [place] [address] Care Team Providers Care Cartoon Artist Name Role Phone Unavailable Primary Care Provider Unavailabl e Encounter Details Date Type Department Care Team (Late st Contact Info) Description 07/15/2018 Transcribed Document [facility] [place] [facility] [place] [address] ProviderKristel MD [address] [place] [address] Social History Tobacco Use Types Packs/Day [...] Conversion Note - Kristel ProviderMD - 07/15/2018 12:49 PM CDT Treatment Intervention, PT Entered On: 07/16/2018 10:44 EDT Performed On: 07/16/2018 10:39 EDT by NIRU AIKEN, PT General Information, PT Visit Type, PT : Treatment Note Patient Orders : Order Date Order Ordering 07/15/2018 10:18 PT Evaluation and Treatment Ordered By: DEREK DURAN MD-ORT 07/15/2018 10:18 PT Treatment Instructions Ordered By: DEREK DURAN MD-ORT 07/15/2018 10:18 PT Treatment Instructions Ordered By: DEREK DURAN MD-ORT 07/15/2018 10:18 PT Treatment Instructions Ordered By: DEREK DURNA MD-ORT 07/15/2018 10:18 PT Treatment Instructions Ordered By: DEREK DURAN MD-ORT 07/15/2018 10:18 PT Treatment Instructions Ordered By: DEREK DURAN MD-ORT 07/15/2018 12:49 PT Additional Treatment Ordered By: VERO TAMEZ, PT Active Diagnoses : 07/16/2018 00:00 Presence of unspecified artificial hip joint Therapy Diagnosis, PT : aftercare following R ATHA Admission Date : 07/15/2018 04:51 Personal Devices : Personal Devices Glasses Assistive Devices : Assistive Devices Walker Precautions in Place : Fall prevention measures NIRU AIKEN, PT - 07/16/2018 10:39 EDT General Status Patient Received Status : Supine in bed, Bed alarm activated, Other: SCDs applied. Treatment Start Time : 07/16/2018 10:00 EDT Patient Left Status : Supine in bed, Bed alarm activated, RN/PCT informed, Communication board completed, All needs met and within reach, Other: SCDs applied. RN/PCT Informed Comment : RN and patient consenting to treatment this date. Treatment End Time : 07/16/2018 10:35 EDT Treatment Time : 35 Minute(s) NIRU AIKEN, PT - 07/16/2018 10:39 EDT Edu Topics Physical Therapy Education Grid Balance Training : Verbalizes understanding Bed Mobility Training : Verbalizes understanding Gait Training : Verbalizes understanding Home Program/Exercises : Verbalizes understanding Home Safety : Verbalizes understanding Role of Physical Therapy : Verbalizes understanding Safety : Verbalizes understanding Transfer Training : Verbalizes understanding Use of Assistive Device : Verbalizes understanding NIRU AIKEN, PT - 07/16/2018 10:39 EDT Plan of Care, PT PT Tx Plan/Goals Established w Patient : Yes NIRU AIKEN PT - 07/16/2018 10:39 EDT Correction Goals Other PT LTG Grid Goal #1 Goal #2 Goal #3 Other : Pt will be able to ambualte 75 feet or greater iwth RWX, min assist x1, 25# WB RLE in order for her to safely navigate her home Pt will be able to ascend and descend 3 steps with a single rail and min assist x1 in order for her to safely gain entry into her home Pt will participate in therapeutic exercise training and be issued a written HEP in order to increase strength for improved gait and provide carryover into the home environment Date to Meet : 07/18/2018 EDT 07/18/2018 EDT 07/18/2018 EDT Goal Status : Goal met Discontinue Goal met Date Met : 07/16/2018 EDT 07/16/2018 EDT Comment : DC stair goal, patient declined due to fatigue and will be going home with daughter now who has no steps at home. NIRU AIKEN, PT - 07/16/2018 10:39 EDT NIRU AIKEN, PT - 07/16/2018 10:39 EDT NIRU AIKEN, PT - 07/16/2018 10:39 EDT Treatment Note Subjective Comment : Patient was lethargic and reporting fatigue/fuzzy thinking that she relates to pain medication. Reports 4/10 pain at rest although more in low back than in hip. RN is aware of patient issues. Patient's Response to Treatment : No adverse reactions to treatment but limited by patient's lethargy. Additional Objective Information : Patient completed supine to sit with min assist to RLE and increased time. Patient completed come to stand at RW with increased use of UE and CGA. Patient ambulated 100 feet with RW and CGA with slow pace, step to progressing to step through pattern, small step size bilaterally with narrow base of support and downward gaze. Needs cues for full hip extension in standing. Patient completed ther ex as follows: 2x10 ankle pumps, quad sets, glut sets, short arc quads, long arc quads, seated knee flexion, hamstrings sets and heel slides. Assessment : Patient has met 2/3 goals, discontinued stair goal as patient felt it may be unsafe due to her feeling lethargic and pain meds affecting cognition. She will now be DC'ing home with daughter for assist x 1 week with no steps to enter this home. Plan for Treatment : DC when medically released with daughter to assist and HHPT to follow. NIRU AIKEN, PT - 07/16/2018 10:[address] [facility] PT Therap. Exercise 15 min : 1 Gait Training Each 15 Min : 1 NIRU AIKEN PT - 07/16/2018 10:39 EDT documented in this encounter Plan of Treatment Not on file documented as of this encounter Visit Diagnoses Not on filedocumented in this encounter
--- OUTSIDE RECORDS SUMMARY | 2024-08-19 13:31 | XMS_ITS | Encounter Summary ---
Author Organization [facility] Address [address] [place] [address] Care Team Providers Care Canvas Products Sales Representative Name Role Phone Unavailable Primary Care Provider Unavailabl e Encounter Details Date Type Department Care Team (Late st Contact Info) Description 07/15/2018 Transcribed Document [facility] [place] [facility] [place] [address] ProviderKristel MD [facility] [place] [address] Social History Tobacco Use Types [...] Conversion Note - Historical ProviderMD - 07/15/2018 3:49 PM CDT UM Authorization Entered On: 07/15/2018 15:50 EDT Performed On: 07/15/2018 15:49 EDT by ERICK JONES RN-Utilization Review Primary Insurance Authorization Authorization and Policy Numbers : Insurance 1 Health Plan: [employer] PPO Policy Number: [id number] Authorization Number: [id number] Insurance Primary Name : [employer] Medicare Authorization Status-Primary : Awaiting callback Authorization Number-Primary : [id number] Authorized Service Begin Date-Primary : 07/15/2018 EDT Authorization Comments-Primary : Uploaded clinicals to [employer] via [employer] by ANNE. Historical Authorization Comments-Primary : No Authorization Comments Found ERICK JONES RN-Utilization Review - 07/15/2018 15:49 EDT documented in this encounter Plan of Treatment Not on file documented as of this encounter Visit Diagnoses Not on filedocumented in this encounter
--- OUTSIDE RECORDS SUMMARY | 2024-08-19 13:31 | XMS_ITS | Encounter Summary ---
Author Organization [employer] Address [address] [place] [address] Care Team Providers Care Stack Clerk Name Role Phone Unavailable Primary Care Provider Unavailabl e Encounter Details Date Type Department Care Team (Late st Contact Info) Description 07/15/2018 Transcribed Document [facility] [place] [facility] [place] [address] ProviderKristel MD [facility] [place] [address] Social History Tobacco Use Types [...] Conversion Note - Historical ProviderMD - 07/15/2018 7:24 AM CDT Patient: CINDY LABOY Age: 73 Years Sex: Female : 1945 Discharge Plan Ortho Discharge Summary Addendum Discharge: Home Procedure: Right ATHA Complications: None DVT Prophylaxis: Aspirin 81 mg tabs, 1 BID for 45 days. Script written, on chart WB Status: WBAT, USE WALKER FOR 2 WEEKS AND PROGRESS TO CANE TOLERATED WITH PT GUIDENCE. F/U in clinic 6 weeks Additional Instructions: Must walk with walker for 1st 2 weeks post op to decrease risk of post op femur fracture. Discharge Instructions: 1)Elevate the affected knee and the entire lower extremity on 2 or 3 pillows while sleeping at night for the first 6-8 weeks after surgery in order to help combat swelling in the lower extremities. 2) The patient may shower on the 3rd day after surgery but must keep the wound or dressing completely dry until 7 days postoperatively using glad press and seal. 3)The current dressing may be removed on the tenth day after surgery and the incision may remain uncovered if it is completely dry. 4) Call for wound drainage or excessive redness that is present beyond 10 days after surgery. 5) The patient may progress from a walker to crutches to a cane to no support at the discretion of the therapist after 2 weeks. The patient should not progress to the next level until they are walking without a limp at the previous level. 6) Tylenol, Oxycodone (assuming no allergy), Tramadol, and for severe pain Dilaudid will be used for post op pain. 7) Place pillow under operative thigh to keep hip flexed while sleeping. 8) The patient will be on blood thinner after surgery. Each patient's blood thinner may be different pending past medical history. It may be stopped at the discretion of the surgeon if wound problems develop. Bilateral CHELLE hose are to be worn daily for DVT prophylaxis. You may remove these for daily skin inspections, but otherwise these are to be worn at all times. Do not start or stop anticoagulation without discussing with Dr. Merritt first. Discharge Medications (7) Active ALPRAZolam 0.5 mg oral tablet 0.5 mg = 1 Tab, Oral, QID hydroCHLOROthiazide-triamterene 25 mg-37.5 mg oral tablet 0.5 Tab, Oral, Daily levothyroxine 150 mcg, Oral, Daily Metoprolol Tartrate 50 mg oral tablet 50 mg = 1 Tab, Oral, BID Vitamin B12 2,500 mcg, SubLINgual, Daily Vitamin D3 1,000 Int Units, Oral, Daily zinc (as gluconate) 50 mg oral tablet 1 Tab, Oral, Daily Oxycodone 5mg 1-2 tabs every 6 hours PRN pain Dilaudid 2mg Q6hrs PRN (extreme pain only, this is not for management of pain but for rescue only) Tramadol 50mg 1 tab Q 6hrs PRN ECASA 81mg BID x 6 weeks Colace 100mg 1 tab daily Gabapentin 300mg 1 tab QHS documented in this encounter Plan of Treatment Not on file documented as of this encounter Visit Diagnoses Not on filedocumented in this encounter
--- OUTSIDE RECORDS SUMMARY | 2024-08-19 13:31 | XMS_ITS | Encounter Summary ---
Author Organization [employer] Address [address] [place] [address] Care Team Providers Care Consular Officer Name Role Phone Unavailable Primary Care Provider Unavailabl e Encounter Details Date Type Department Care Team (Late st Contact Info) Description 07/15/2018 Transcribed Document [facility] – [place] [address] ProviderKristel MD [address] [place] [address] Social History Tobacco Use Types Packs/Day [...] Conversion Note - Kristel ProviderMD - 07/15/2018 12:40 PM CDT Treatment Intervention, OT Entered On: 07/16/2018 10:57 EDT Performed On: 07/16/2018 9:34 EDT by DANA PALMA OTR/L General Information, OT Visit Type, OT : Treatment Note Patient Orders : Order Date Order Ordering 07/15/2018 10:18 OT Evaluation and Treatment Ordered By: DEREK DURAN MD-ORT 07/15/2018 10:18 OT Treatment Instructions Ordered By: DEREK DURAN MD-ORT 07/15/2018 12:40 Occupational Therapy Additional Tx Ordered By: Active Diagnoses : 07/16/2018 00:00 Presence of unspecified artificial hip joint Admission Date : 07/15/2018 04:51 Personal Devices : Personal Devices Glasses Assistive Devices : Assistive Devices Walker Precautions in Place : Fall prevention measures DANA PALMA OTR/L - 07/16/2018 10:56 EDT General Status Patient Received Status : Up in restroom, Other: pt standing at sink with daughter in room daughter was assisting Treatment Start Time : 07/16/2018 9:21 EDT Patient Left Status : Up in chair, Chair alarm activated, RN/PCT informed, Family/Visitors at bedside, All needs met and within reach, Other: RN/PCT Informed Comment : RN Ok'd to tx, ID and verified Treatment End Time : 07/16/2018 9:34 EDT Treatment Time : 13 Minute(s) DANA PALMA OTR/L - 07/16/2018 10:58 EDT Self Care/Home Management, OT Upper Body Dressing Assist Level, OT : Independent, complete Lower Body Dressing Device Comment, OT : pt educated on dressing technique, simulates donning pants as pt already dressing with CGA/SBA, daughter assisted prior Bed/Chair/WC Transfer Assist Level : Supervision or set-up Bed/Chair/WC Transfer Device : Belt, gait, Walker, front wheel Bed/Chair/WC Device Comment : cues for safety DANA PALMA OTR/L - 07/16/2018 10:58 EDT Mobility Device/Prosthesis/Wt Bearing Weight Bearing Status : As tolerated Functional Mobility Device : Gait belt, Walker, front wheel DANA PALMA OTR/L - 07/16/2018 10:58 EDT Functional Mobility Functional MobilityComment : pt standing in bathroom at sink with rw, walks back to chair with S and cues for safety/hand placement to transfer back into chair with S DANA PALMA OTR/L 07/16/2018 10:58 EDT Education OT Occupational Therapy Education Grid Activity of Daily Living Training : Verbalizes understanding, Returns demonstration Functional Mobility Training : Verbalizes understanding, Returns demonstration Home Safety : Verbalizes understanding (Comment: handout provided [DANA PALMA OTR/L 07/16/2018 10:58 EDT] ) DANA PALMA OTR/L - 07/16/2018 10:58 EDT Plan of Care, OT OT Tx Plan/Goals Established w Patient : No Reason OT Treatment/Plan Not Established : goals met, pt will be discharging home DANA PALMA OTR/L - 07/16/2018 10:58 EDT 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 Pt will complete ADL transfer with CGA, RW level. Pt will complete LB self care task with CGA, AE prn. Date to Meet : 07/21/2018 EDT 07/21/2018 EDT 07/21/2018 EDT Goal Status : Goal met Goal met Goal met Date Met : 07/16/2018 EDT 07/16/2018 EDT 07/16/2018 EDT DANA PALMA OTR/Mari - 07/16/2018 10:58 EDT DANA PALMA OTR/Mari - 07/16/2018 10:58 EDT DANA PALMA OTR/Mari - 07/16/2018 10:58 EDT Treatment Note Subjective Comment : pt agrees to tx Additional Objective Information : ADL Assessment : pt met 05/12 acute care OT goals Plan for Treatment : pt will be discharging home with her daughter to her house and home health services DANA PALMA OTR/Mari - 07/16/2018 10:58 EDT Pain Assessment Pain Scaled Used : 0-10 Pain scale Pain Score Pre-Intervention : 5 Location : Back, Hip, right Pain Comment : pt reports medicated already DANA PALMA OTR/Mari - 07/16/2018 10:58 EDT Image 1 - Images currently included in the form version of this document have not been included in the text rendition version of the form. [facility] OT Charges OT Selfcare/Hm Mgmt Ea 15 Min : 1 DANA PALMA OTR/Mari - 07/16/2018 10:58 EDT documented in this encounter Plan of Treatment Not on file documented as of this encounter Visit Diagnoses Not on filedocumented in this encounter
--- OUTSIDE RECORDS SUMMARY | 2024-08-19 13:31 | XMS_ITS | Encounter Summary ---
Author Organization [email or web address] Address [address] [place] [address] Care Team Providers Care Hat Brim And Crown Laminating Operator Name Role Phone Unavailable Primary Care Provider Unavailabl e Encounter Details Date Type Department Care Team (Late st Contact Info) Description 07/15/2018 Transcribed Document [facility] [place] [facility] [place] [address] ProviderKristel MD [address] [place] [address] Social History Tobacco Use Types Packs/Day [...] Conversion Note - Historical ProviderMD - 07/15/2018 10:15 AM CDT Pain Assessment Entered On: 07/16/2018 12:38 EDT Performed On: 07/16/2018 12:09 EDT by Lani Youssef Rn Intervention Information: oxyCODONE Performed by Lani Youssef Rn on 07/16/2018 11:09:00 EDT oxyCODONE,5mg Oral,Pain (Moderate 4-6) Pain Assessment Pain Assessment : Follow-up assessment Pain Scale Goal : 4 Pain Scale Used : 0-10 Scale Lani Youssef Rn - 07/16/2018 12:38 EDT Pain Scale Intensity : 3 Lani Youssef Rn - 07/16/2018 12:38 EDT Image 4 - Images currently included in the form version of this document have not been included in the text rendition version of the form. documented in this encounter Plan of Treatment Not on file documented as of this encounter Visit Diagnoses Not on filedocumented in this encounter
--- OUTSIDE RECORDS SUMMARY | 2024-08-19 13:31 | XMS_ITS | Encounter Summary ---
Author Organization [email or web address] Address [address] [place] [address] Care Team Providers Care Equine Science Instructor Name Role Phone Unavailable Primary Care Provider Unavailabl e Encounter Details Date Type Department Care Team (Late st Contact Info) Description 07/15/2018 Transcribed Document [facility] [place] [facility] [place] [address] ProviderKristel MD [address] [place] [address] Social History Tobacco Use Types Packs/Day [...] Conversion Note - Kristel ProviderMD - 07/15/2018 10:15 AM CDT Evaluation, Occupational Therapy Entered On: 07/15/2018 12:39 EDT Performed On: 07/15/2018 11:14 EDT by OSCAR FRANZ OTR/L General Information, OT Visit Type, OT : Initial evaluation Patient Orders : Order Date Order Ordering 07/15/2018 10:18 OT Evaluation and Treatment Ordered By: DEREK DURAN MD-ORKevin 07/15/2018 10:18 OT Treatment Instructions Ordered By: DEREK DURAN MD-ORT Active Diagnoses : No Qualifying Diagnoses Therapy Diagnosis, OT : reduced mobility Admission Date : 07/15/2018 04:51 Assisted by, OT : Physical Therapist Personal Devices : Personal Devices Glasses Assistive Devices : Assistive Devices Walker Precautions in Place : Fall prevention measures OSCAR FRANZ OTR/L - 07/15/2018 12:28 EDT General Status Patient Received Status : Long sitting in bed, Bed alarm activated, HOB elevated Treatment Start Time : 07/15/2018 11:14 EDT Patient Left Status : Up in chair, Chair alarm activated, RN/PCT informed, Family/Visitors at bedside, Communication board completed, All needs met and within reach RN/PCT Informed Comment : nursing ok'd tx. id and verified. Treatment End Time : 07/15/2018 11:34 EDT Treatment Time : 20 Minute(s) OSCAR FRANZ, OTR/L - 07/15/2018 12:28 EDT History and Environment, OT Living Situation, Therapy : Home Patient Lives With : Alone Persons Assisting Patient at Home : Child/Children Professional Skilled Services : None Persons Providing Information : Patient Home Equipment, Therapy : Commode, Shower Equipment, Walker Commode : Commode, bedside Shower Equipment : Shower Chair, with back Walker : Walker, front wheel Home Setup : One story Stairs : Yes Stair Location(s) : Outside Outside Stairs, Number of Steps : 3 Railing Outside : Yes Outside Railing Position : Right, going up OSCAR FRANZ, AUGUSTINR/L - 07/15/2018 12:28 EDT Prior LOF Bathing, OT : Independent Prior LOF Bed Mobility : Independent Prior LOF Upper Body Dressing, OT : Independent Prior LOF Lower Body Dressing, OT : Independent Prior LOF Toileting : Independent Prior LOF Transfer : Independent Prior LOF Grooming, OT : Independent Prior LOF for IADLs, OT : Independent OSCAR FRANZ OTR/L - 07/15/2018 12:28 EDT Upper Extremity Upper Extremity Dominance : Right Right UE Active ROM : WFL Right UE Strength : WFL Left UE Active ROM : WFL Left UE Strength : WFL Upper Extremity Strength Impaired : No Fine Motor Coordination Impaired : No OSCAR FRANZ, AUGUSTINR/L - 07/15/2018 12:28 EDT Self Care/Home Management, OT Self Feeding Assist Level, OT : Independent, complete Grooming Assist Level, OT : Independent, complete Bathing Assist Level, OT : Supervision or set-up Upper Body Dressing Assist Level, OT : Independent, complete Lower Body Dressing Assist Level, OT : Assist, minimal Toileting Assist Level : Assist, minimal Toileting Device : Commode, bedside, [id number] commode Toilet Transfer Assist Level : Assist, minimal Toilet Transfer Device : Belt, gait, Commode, bedside, Walker, rolling OSCAR FRANZ OTR/L - 07/15/2018 12:28 EDT Mobility Device/Prosthesis/Wt Bearing Weight Bearing Status Maintained : Yes Weight Bearing Status : Partial right lower extremity Functional Mobility Device : Gait belt, Walker, front wheel OSCAR FRANZ OTR/L - 07/15/2018 12:28 EDT Functional Mobility Mobility Grid Supine to Sit : Rehab Minimal assistance Sit to Stand : Rehab Minimal assistance Bed to Chair : Rehab Minimal assistance Stand to Sit : Rehab Minimal assistance OSCAR FRANZ OTR/L - 07/15/2018 12:28 EDT AM PAC Daily Activity Putting On/Taking Off Lower Body Clothes : A little Bathing (Washing, Rinsing, Drying) : A little Toileting Includes Toilet, Bedpan, Urinal : A little Putting On/Taking Off Upper Clothing : None Taking Care of Grooming : None Eating Meals : None AM-PAC Daily Activity Raw Score : 21 AM-PAC Daily Activity Standardized Score : 44.27 AM-PAC Daily Activity CMS 0-100% Score : 32.79 % OSCAR FRANZ OTR/L - 07/15/2018 12:28 EDT Image 3 - Images currently included in the form version of this document have not been included in the text rendition version of the form. Activity Tolerance, OT Activity Comment : OSCAR AGUILAR OTR/L - 07/15/2018 12:28 EDT Cognition Assessment, OT Orientation : Oriented x 4 OSCAR FRANZ OTR/L - 07/15/2018 12:28 EDT Education OT Occupational Therapy Education Grid Activity of Daily Living Training : Verbalizes understanding, Returns demonstration, Needs further teaching Functional Mobility Training : Verbalizes understanding, Returns demonstration, Needs further teaching Role of Occupational Therapy : Verbalizes understanding OSCAR FRANZ OTR/L - 07/15/2018 12:28 EDT Indication Assessment, OT Occupational Therapy Indicated : Yes Problem List, OT : Impaired, bed mobility, Impaired, activities daily living, Impaired functional mobility, Impaired, standing balance, Impaired, transfers Potential Barriers, OT : None evident Rehabilitation Potential, OT : Good OSCAR FRANZ OTR/L - 07/15/2018 12:28 EDT Plan of Care, OT OT Tx Plan/Goals Established w Patient : Yes OT Frequency Rehab : Other: 3-5 x week OT Duration Rehab : Seven Days OT Treatments Planned : Activities of daily living, Functional mobility training, Safety education, Therapeutic activities, Therapeutic exercises Plan of Care Comment, OT : see OT POC. OSCAR FRANZ OTR/L - 07/15/2018 12:28 EDT Cheese Cook Goals, OT Other LTG Grid Goal #1 Goal #2 Goal #3 Goal : Pt will VU of home safety and car transfer handout. Pt will complete ADL transfer with CGA, RW level. Pt will complete LB self care task with CGA, AE prn. Date to Meet : 07/21/2018 EDT 07/21/2018 EDT 07/21/2018 EDT Goal Status : Initial goal Initial goal Initial goal OSCAR FRANZ OTR/L - 07/15/2018 12:28 EDT OSCAR FRANZ OTR/L - 07/15/2018 12:28 EDT OSCAR FRANZ OTR/L - 07/15/2018 12:28 EDT Treatment Note Subjective Comment : pt ok'd tx. Additional Objective Information : EVAL = 8 min ADL = 12 min Pt educated on ADL transfers at RW level. Assessment : Pt is min assist with ADL transfers and LB self care tasks. Pt to benefit from continued OT services during in-patient stay. Plan for Treatment : Pt to be seen by skilled OT 3-5 x week. OSCAR FRANZ OTR/L - 07/15/2018 12:28 EDT Pain Assessment Pain Scaled Used : 0-10 Pain scale Pain Score Pre-Intervention : 2 Pain Score During-Intervention : 2 Pain Score Post-Intervention. : 2 Location : Hip, right Pain Comment : nurse aware OSCAR FRANZ OTR/L - 07/15/2018 12:28 EDT Image 1 - Images currently included in the form version of this document have not been included in the text rendition version of the form. Anticipated Discharge Needs, OT/PT Anticipated Discharge to : Other: to be determined. Recommend Continued Therapy at Discharge : Yes OSCAR FRANZ OTR/L - 07/15/2018 12:[address] [facility] OT Charges OT Selfcare/Hm Mgmt Ea 15 Min : 1 OT Eval Low Complexity : 1 OSACR FRANZ, OTR/L - 07/15/2018 12:28 EDT Electronically signed by Rosario, [facility] Conversion Weapons Designer Cerner at 06/29/2022 1:44 PM CDT documented in this encounter Plan of Treatment Not on file documented as of this encounter Visit Diagnoses Not on filedocumented in this encounter
--- OUTSIDE RECORDS SUMMARY | 2024-08-19 13:31 | XMS_ITS | Encounter Summary ---
Author Organization [employer] Address [address] [place] [address] Care Team Providers Care News Writer Name Role Phone Unavailable Primary Care Provider Unavailabl e Encounter Details Date Type Department Care Team (Late st Contact Info) Description 07/15/2018 Transcribed Document [facility] [place] [facility] [place] [address] ProviderKristel MD [address] [place] [address] Social History Tobacco Use Types Packs/Day [...] Kristel ProviderMD - 07/15/2018 8:01 AM CDT [facility] OR PACU Summary Primary Physician: DEREK DURAN MD-ORT Finalized Date/Time: 07/15/18 10:28:25 Pt. Name: CINDY LABOY /Sex: 1945 Female Med Rec #: [id number] Physician: DEREK DURAN MD-ORT Financial #: [id number] Pt. Type: I Room/Bed: [facility]/ Admit/Disch: 07/15/18 04:51:00 - Institution: [facility] OR PACU Case Times Entry 1 In PACU I 07/15/18 09:21:00 Ready for PACU 07/15/18 09:51:00 Discharge Discharge from PACU 07/15/18 10:10:00 I Last Modified By: Nikki Wang RN 07/15/18 10:27:52 [facility] OR PACU Case Times Audit 07/15/18 10:27:52 Manager Residential: HELFEP Modifier: HELFEP <+> 1 Ready for PACU Discharge <+> 1 Discharge from PACU I [facility] OR PACU Acuity Entry 1 Start Time 07/15/18 09:51:00 Stop Time 07/15/18 10:10:00 Acuity Level [facility] PACU Acuity I Last Modified By: Nikki Wang RN 07/15/18 10:28:21 Finalized By: Nikki Wang RN Document Signatures Signed By: Nikki Wang RN 07/15/18 10:28 Electronically signed by Rosario [facility] Conversion Ratoprinter Cerner at 06/29/2022 1:40 PM CDT documented in this encounter Plan of Treatment Not on file documented as of this encounter Visit Diagnoses Not on filedocumented in this encounter
--- OUTSIDE RECORDS SUMMARY | 2024-08-19 13:31 | XMS_ITS | Encounter Summary ---
Author Organization [employer] Address [address] [place] [address] Care Team Providers Care Test Facility Engineer Name Role Phone Unavailable Primary Care Provider Unavailabl e Encounter Details Date Type Department Care Team (Late st Contact Info) Description 07/15/2018 Transcribed Document [facility] [place] [facility] [place] [address] ProviderKristel MD [address] [place] [address] Social History Tobacco Use Types Packs/Day [...] ProviderMD - 07/15/2018 10:15 AM CDT Evaluation, Physical Therapy Entered On: 07/15/2018 12:49 EDT Performed On: 07/15/2018 11:14 EDT by VERO TAMEZ, PT General Information, PT Visit Type, PT : Initial evaluation Patient Orders : Order [...] Diagnoses : No Qualifying Diagnoses Therapy Diagnosis, PT : aftercare following RTHA-anterior Admission Date : 07/15/2018 04:51 Assisted by, PT : Occupational Therapist Personal Devices : Personal Devices Glasses Assistive Devices : Assistive Devices Walker VERO TAMEZ, PT - 07/15/2018 12:39 EDT General Status Patient Received Status : Supine in bed, Bed alarm activated Treatment Start Time : 07/15/2018 11:14 EDT Patient Left Status : Up in chair, Chair alarm activated, RN/PCT informed, Family/Visitors at bedside, Communication board completed, All needs met and within reach RN/PCT Informed Comment : Yes, RN approved pt for PT eval and pt agreeable Treatment End Time : 07/15/2018 11:34 EDT Treatment Time : 20 Minute(s) VERO TAMEZ, PT - 07/15/2018 12:39 EDT History and Environment Living Situation, Therapy : Home Patient Lives With : Alone Persons Assisting Patient at Home : Child/Children Professional Skilled Services : None Persons Providing Information : Patient, Family member(s) Home Equipment Therapy, PT : Commode, Shower Equipment, Walker Home Setup : One story Stairs : Yes Stair Location(s) : Outside Outside Stairs, Number of Steps : 3 Railing Outside : Yes Outside Railing Position : Right, going up VERO TAMEZ, PT - 07/15/2018 12:39 EDT Prior Level of Function PT GRID Prior LOF Ambulation, Household : Independent Prior LOF Ambulation, Community : Independent Prior LOF Bed Mobility : Independent Prior LOF Toileting : Independent Prior LOF Transfer : Independent VERO TAMEZ, PT - 07/15/2018 12:39 EDT Upper Extremity Upper Extremity Dominance : Right Right UE Active ROM : WF Right UE Strength : WF Left UE Active ROM : WF Left UE Strength : WFL VERO TAMEZ, PT - 07/15/2018 12:39 EDT Lower Extremity RLE Active ROM : Impaired Right LE Strength : Impaired LLE Active ROM : WFL Left LE Strength : WFL Lower Extremity Comment : RLE is impaired secondary to surgery 3/5 grossly assessed LLE is WFL's VERO TAMEZ, PT - 07/15/2018 12:39 EDT Functional Mobility Mobility Grid Bed Roll Right : Rehab Complete independence Bed Scooting : Rehab Complete independence Supine to Sit : Rehab Modified independence Sit to Stand : Rehab Minimal assistance Bed to Chair : Rehab Minimal assistance Stand to Sit : Rehab Minimal assistance VERO TAMEZ, PT - 07/15/2018 12:39 EDT Gait Training/Assessment, PT Weight Bearing Status Comment : 25# RLE Gait Assistance Level : Assist, minimal Walking Distance : 7 steps to recliner with RWX, min assist x1, verbal cues for restricted weight bearing (25#) on RLE and for sequencing Ambulatory Devices : Gait belt, Walker, front wheel Gait Deviations : Yes Gait Training Comment : see above Stair(s) Ascend/Descend Training : No VERO TAMEZ, PT - 07/15/2018 12:39 EDT Neuromuscular Reeducation, PT Balance Comment : good sitting and standing VERO TAMEZ, PT - 07/15/2018 12:39 EDT Neurological/Sensory Overall Sensory Response : Intact Light Touch Response : Intact VERO TAMEZ, PT - 07/15/2018 12:39 EDT Activity Tolerance, PT Activity Comment : good VERO TAMEZ, PT - 07/15/2018 12:39 EDT Cognition Assessment, PT Orientation : Oriented x 4 Attention Assessment : Present VERO TAMEZ, PT - 07/15/2018 12:39 EDT Edu Topics Physical Therapy Education Grid Bed Mobility Training : Verbalizes understanding, Returns demonstration, Needs further teaching Gait Training : Verbalizes understanding, Returns demonstration, Needs further teaching Precaution/Contraindication : Verbalizes understanding, Returns demonstration, Needs further teaching (Comment: 25# WB RLE [VERO TAMEZ, PT - 07/15/2018 12:39 EDT] ) Transfer Training : Verbalizes understanding, Returns demonstration, Needs further teaching Use of Assistive Device : Verbalizes understanding, Returns demonstration, Needs further teaching VERO TAMEZ, PT - 07/15/2018 12:39 EDT Indication Assesessment, PT Physical Therapy Indicated : Yes Interdisciplinary Consultation(s) Needed : Yes Interdisciplinary Consult : Occupational Therapy PT Problem List : Impaired, bed mobility, Impaired, gait, Impaired, stair mobility, Impaired, strength, Impaired, transfers Potential Barriers To Therapy : Acuity of Illness Rehabilitation Potential : Good VERO TAMEZ, PT - 07/15/2018 12:39 EDT Plan of Care, PT PT Tx Plan/Goals Established w Patient : Yes PT Frequency Rehab : Daily, twice (bid) Other PT Treatment Provided This Date : gait as per note PT Duration Rehab : Three days PT Treatments Planned : Bed mobility training, Gait training, Safety education, Stair training, Therapeutic exercises, Transfer training Plan of Care Comment, PT : Pt will be seen twice daily for PT treatment which may include training in transfers, bed mobility, gait, stairs, use of AD, balance training, therapeutic exercise, HEP instruction and pt education on safety precautions VERO TAMEZ, PT - 07/15/2018 12:39 EDT Aviation Maintenance Instructor Goals Other PT LTG Grid Goal #1 [...] 07/18/2018 EDT 07/18/2018 EDT Goal Status : Initial goal Initial goal Initial goal VERO TAMEZ, PT - 07/15/2018 12:39 EDT VERO TAMEZ, PT - 07/15/2018 12:39 EDT VERO TAMEZ, PT - 07/15/2018 12:39 EDT Treatment Note Subjective Comment : agreeable Patient's Response to Treatment : good Additional Objective Information : eval gait as per note Pt completed 10 reps each of ankle pumps, quad sets and gluteal sets for anti-embolism purposes per MD orders and pt instructed to perform these exercises 2-3X per hour when awake PT educated pt and family on progression of PT activities and MD expectations Assessment : Pt would benefit from continued skilled PT services in the acute care setting to improve her level of mobility and assist her to return to her PLOF Plan for Treatment : continue per eval POC VERO TAMEZ, PT - 07/15/2018 12:39 EDT Pain Assessment Pain Scaled Used : 0-10 Pain scale Pain Score Pre-Intervention : 2 Pain Score Post-Intervention. : 2 VERO TAMEZ, PT - 07/15/2018 12:39 EDT Image 1 - Images currently included in the form version of this document have not been included in the text rendition version of the form. Anticipated Discharge Needs, OT/PT Anticipated Discharge to : Other: to be determined pending pt's progress toward goals VERO TAMEZ, PT - 07/15/2018 12:39 EDT [place] PT Charges Gait Training Each 15 Min : 1 PT Eval Low Complexity : 1 VERO TAMEZ, PT - 07/15/2018 12:39 EDT documented in this encounter Plan of Treatment Not on file documented as of this encounter Visit Diagnoses Not on filedocumented in this encounter
--- OUTSIDE RECORDS SUMMARY | 2024-08-19 13:32 | XMS_ITS | Encounter Summary ---
Author Organization [employer] Address [address] [place] [address] Care Team Providers Care Poll Watcher Name Role Phone Unavailable Primary Care Provider Unavailabl e Encounter Details Date Type Department Care Team (Late st Contact Info) Description 07/15/2018 Transcribed Document [facility] [place] [facility] [place] [address] ProviderKristel MD [address] [place] [address] Social History Tobacco Use Types Packs/Day [...] Conversion Note - Historical ProviderMD - 07/15/2018 6:15 AM CDT Pediatric Growth Entered On: 07/15/2018 6:15 EDT Performed On: 07/15/2018 6:15 EDT by Earlene Sheriff Patient Cooler Room Worker Height and Weight, Clinical Dosing Height Source : Stated Height Entry Format : Grady Height, Feet : 5 ft(Converted to: 152 cm, 60 Inch) Height, Inches : 1 Inch(Converted to: 0 ft 1 Inch, 2.54 cm) Clinical Height : 154.94 cm Weight Source : Standing scale Weight Entry Format : Grady Clinical Dosing Weight : 63.18 kg Weight, Pounds : 139 lb Body Surface Area (BSA) : 1.62 m2 Body Mass Index : 26.3 kg/m2 (HI) Harviell Body Weight : 47 kg Earlene Sheriff Patient Cooler Room Worker - 07/15/2018 6:15 EDT documented in this encounter Plan of Treatment Not on file documented as of this encounter Visit Diagnoses Not on filedocumented in this encounter
--- OUTSIDE RECORDS SUMMARY | 2024-08-19 13:32 | XMS_ITS | Encounter Summary ---
Author Organization [employer] Address [address] [place] [address] Care Team Providers Care Insurance Account Manager Name Role Phone Unavailable Primary Care Provider Unavailabl e Encounter Details Date Type Department Care Team (Late st Contact Info) Description 07/16/2018 Transcribed Document [facility] [place] Medicine [facility] [place] [address] ProviderKristel MD [address] [place] [address] Social History Tobacco Use Types Packs/Day [...] Cerner Conversion Note - Historical ProviderMD - 07/16/2018 8:00 AM CDT Pain Assessment Entered On: 07/16/2018 9:54 EDT Performed On: 07/16/2018 9:19 EDT by Lani Youssef Rn Intervention Information: traMADol Performed by Lani Youssef Rn on 07/16/2018 08:19:00 EDT traMADol,50mg Oral Pain Assessment Pain Assessment : Follow-up assessment Pain Scale Goal : 4 Pain Scale Used : 0-10 Scale Lani Youssef Rn - 07/16/2018 9:54 EDT Pain Scale Intensity : 3 Lani Youssef Rn - 07/16/2018 9:54 EDT Image 4 - Images currently included in the form version of this document have not been included in the text rendition version of the form. Electronically signed by Tatiana Ponce Conversion Radiology Interventional Physician Cerremy at 06/29/2022 1:20 PM CDT documented in this encounter Plan of Treatment Not on file documented as of this encounter Visit Diagnoses Not on filedocumented in this encounter
--- OUTSIDE RECORDS SUMMARY | 2024-08-19 13:32 | XMS_ITS | Encounter Summary ---
Author Organization [employer] Address [address] [place] [address] Care Team Providers Care Clinical Lab Scientist Name Role Phone Unavailable Primary Care Provider Unavailabl e Encounter Details Date Type Department Care Team (Late st Contact Info) Description 07/16/2018 Transcribed Document [facility] [place] Family Medicine [place] [address] ProviderKristel MD [place] [address] Social History Tobacco Use Types [...] Conversion Note - Historical ProviderMD - 07/16/2018 9:53 AM CDT Initial Discharge Planning Entered On: 07/16/2018 9:54 EDT Performed On: 07/16/2018 9:53 EDT by NAYA MINOR, Care Management-Kindergarten Instructional Assistant Initial Assessment I Previously Documented Living Environment : No qualifying data available. Living Situation : Home Patient Lives With : Alone Emergency Contact #1 : Sera Emergency Contact #1 Emergency Contact #1 Relationship : daughter Emergency Contact #2 : Nae Emergency Contact #2 Emergency Contact #2 Relationship : daughter NAYA MINOR Care Management-Kindergarten Instructional Assistant - 07/16/2018 9:53 EDT Initial Assessment II Sensory and Motor Deficits : Other: AYESHA Current Home Treatments and Equipment : Bedside commode, Shower chair, Walker NAYA MINOR Care Management-Kindergarten Instructional Assistant - 07/16/2018 9:53 EDT Discharge Needs I Anticipated Discharge Date : 07/16/2018 EDT Anticipated Discharge To, CM : Home with home health Current Home Treatment/Equipment : Current Home Treatment/Equipment No qualifying data available. NAYA MINOR, Care Management-Kindergarten Instructional Assistant - 07/16/2018 9:53 EDT Discharge Needs II Professional Skilled Services : Professional Skilled Services No qualifying data available. Services and Community Resources : Home Health Needs Assistance with Transportation : No Discharge Options Discussed with Patient : [facility] [place], Home Health NAYA MINOR Care Management-Kindergarten Instructional Assistant - 07/16/2018 9:53 EDT Electronically signed by Tatiana Ponce Conversion Networking Technology Instructor Cerner at 06/29/2022 1:23 PM CDT documented in this encounter Plan of Treatment Not on file documented as of this encounter Visit Diagnoses Not on filedocumented in this encounter
--- OUTSIDE RECORDS SUMMARY | 2024-08-19 13:32 | XMS_ITS | Encounter Summary ---
Author Organization [employer] Address [address] [place] [address] Care Team Providers Care Rehab Liaison Name Role Phone Unavailable Primary Care Provider Unavailabl e Encounter Details Date Type Department Care Team (Late st Contact Info) Description 07/19/2018 Transcribed Document [facility] [place] [facility] [place] [address] ProviderKristel MD [place] [address] Social History Tobacco Use Types [...] Cerner Conversion Note - Historical ProviderMD - 07/19/2018 10:31 AM CDT Post Visit Phone Call Entered On: 07/19/2018 10:33 EDT Performed On: 07/19/2018 10:31 EDT by MICHELLE KAY, RN Post Visit Phone Call Post Visit Phone Call History : First call, Left message MICHELLE KAY, RN - 07/19/2018 10:31 EDT documented in this encounter Plan of Treatment Not on file documented as of this encounter Visit Diagnoses Not on filedocumented in this encounter
--- OUTSIDE RECORDS SUMMARY | 2024-08-19 13:32 | XMS_ITS | Encounter Summary ---
Author Organization [employer] Address [address] [place] [address] Care Team Providers Care Nursing Home Manager Name Role Phone Unavailable Primary Care Provider Unavailabl e Encounter Details Date Type Department Care Team (Late st Contact Info) Description 07/16/2018 Transcribed Document [facility] [place] [facility] [place] [address] ProviderKristel MD [address] [place] [address] Social History Tobacco Use Types [...] Cerner Conversion Note - Kristel ProviderMD - 07/16/2018 9:10 AM CDT Patient Education Materials Follows: What to expect after the Procedure: After the procedure, it is common to have: ?? Pain and swelling. ?? A small amount of blood or clear fluid coming from your incision for up to 7 days ?? It is normal to have a moderate amount of bleeding from the site of the drain that was pulled on the morning after surgery. You can hold pressure on the area for 3-5 minutes and cover with a bandage as needed. Diet: ?? Resume usual diet ?? No alcoholic beverages while taking pain medication ?? Drink 8-10 glasses of water a day to prevent constipation from pain medication ?? Increase fiber to help prevent constipation. Straining can cause increased pressure and pain in your incision area ?? Increase protein to promote healing Driving: ?? Do not drive until your health care provider approves. Ask your health care provider when it is safe to drive if you have an immobilizer on your knee. ?? Do not drive or operate heavy machinery while taking prescription pain medicine. ?? Do not drive for 24 hours if you received a sedative. Activity: ?? Do not lift anything that is heavier than 10 lb (4.5 kg) until your health care provider approves. ?? No strenuous activity ?? Avoid high-impact activities, including running, jumping rope, and jumping jacks. ?? Avoid sitting for a long time without moving. Get up and move around at least every few hours. ?? Keep legs elevated while seated and place surgery leg on 2-3 pillows, this will decrease swelling ?? Continue using walker until cleared by physical therapy Bathing: ?? Do not take baths, swim, or use a hot tub for one month after surgery. ?? May shower on the third day after surgery by covering incision with Glad Brand Press and Seal saran wrap. After showering, dry off completely BEFORE removing saran wrap. ?? Use Press and Seal saran wrap to shower for one month after surgery ?? You must be seated to shower until you are no longer using the walker Other: ?? Leave dressing in place for 7 days then remove and leave open to air ?? Continue Aspirin 81mg twice a day for 45 days to help prevent blood clots ?? Wear compression stockings on both legs for 6 weeks, only remove to shower and inspect skin then put back on ?? Use ice therapy for 20-30 minutes at a time and leave off for 20-30 minutes at a time. Always keep a towel or cloth between the ice pack and your skin ?? Continue to use Incentive Spirometer 10 times an hour while awake for one month to help prevent pneumonia Contact a health care provider if: ?? You have more redness, swelling, or pain around your incision. ?? You have more fluid or blood coming from your incision. ?? Your incision or drain site feels warm to the touch. ?? You have pus or a bad smell coming from your incision. ?? You have a fever. ?? Your incision breaks open after your health care provider removes your sutures, skin glue, or adhesive tape. ?? Your prosthesis feels loose. ?? You have knee pain that does not go away. DVT: Blood Clot Blood clots are a common risk after an orthopedic surgery Symptoms: ?? Swelling of your leg or arm, especially if one side is much worse. ?? Warmth and redness of your leg or arm, especially if one side is much worse. ?? Pain in your arm or leg. If the clot is in your leg, symptoms may be more noticeable or worse when you stand or walk. ?? A feeling of pins and needles, if the clot is in the arm. The symptoms of a DVT that has traveled to the lungs (pulmonary embolism, PE) usually start suddenly and include: ?? Shortness of breath while active or at rest. ?? Coughing or coughing up blood or blood-tinged mucus. ?? Chest pain that is often worse with deep breaths. ?? Rapid or irregular heartbeat. ?? Feeling light-headed or dizzy. ?? Fainting. ?? Feeling anxious. ?? Sweating. There may also be pain and swelling in a leg if that is where the blood clot started. How is this prevented? ?? Exercise regularly. For at least 30 minutes every day, engage in: -Activity that involves moving your arms and legs. -Activity that encourages good blood flow through your body by increasing your heart rate. ?? Exercise your arms and legs every hour during long-distance travel (over 4 hours). ?? Drink plenty of water and avoid drinking alcohol while traveling. ?? Avoid sitting or lying in bed for long periods of time without moving your legs. ?? Maintain a weight that is appropriate for your height. Ask your health care provider what weight is healthy for you. ?? If you are a woman who is over 35 years of age, avoid unnecessary use of medicines that contain estrogen. These include control pills. ?? Do not smoke, especially if you take estrogen medicines. If you need help quitting, ask your health care provider. ?? Wear compression stockings (if told by your health care provider) to help prevent blood clots from forming. High Fiber/High Protein Diet High fiber foods: To prevent constipation Grains Whole-grain breads. Multigrain cereal. Oats and oatmeal. Brown rice. Barley. Bulgur wheat. Millet. Bran muffins. Popcorn. [place] wafer crackers. Vegetables Sweet potatoes. Spinach. Kale. Artichokes. Cabbage. Broccoli. Green peas. Carrots. Squash. Fruits Berries. Pears. Apples. Oranges. Avocados. Prunes and raisins. Dried figs. Meats and Other Protein Sources [place], kidney, christ[place]on, and soy beans. Split peas. Lentils. Nuts and seeds. Dairy Fiber-fortified yogurt. Beverages Fiber-fortified soy milk. Fiber-fortified orange juice. Other Fiber bars. High-protein foods: To promote healing High-protein foods contain 4 grams (4 g) or more of protein per serving. They include: ?? Beef, ground sirloin (cooked) ??? 3 oz have 24 g of protein. ?? Cheese (hard) ??? 1 oz has 7 g of protein. ?? Chicken breast, boneless and skinless (cooked) ??? 3 oz have 13.4 g of protein. ?? Cottage cheese ??? 1/2 cup has 13.4 g of protein. ?? Egg ??? 1 egg has 6 g of protein. ?? Fish, filet (cooked) ??? 1 oz has 6???7 g of protein. ?? Garbanzo beans (canned or cooked) ??? 1/2 cup has 6???7 g of protein. ?? Kidney beans (canned or cooked) ??? 1/2 cup has 6???7 g of protein. ?? Gómez (cooked) ??? 3 oz has 24 g of protein. ?? Milk ??? 1 cup (8 oz) has 8 g of protein. ?? Nuts (peanuts, pistachios, almonds) ??? 1 oz has 6 g of protein. ?? Peanut butter ??? 1 oz has 7???8 g of protein. ?? Pork tenderloin (cooked) ??? 3 oz has 18.4 g of protein. ?? Pumpkin seeds ??? 1 oz has 8.5 g of protein. ?? Soybeans (roasted) ??? 1 oz has 8 g of protein. ?? Soybeans (cooked) ??? 1/2 cup has 11 g of protein. ?? Soy milk ??? 1 cup (8 oz) has 5???10 g of protein. ?? Soy or vegetable gabriel ??? 1 gabriel has 11 g of protein. ?? [place] seeds ??? 1 oz has 5.5 g of protein. ?? Tofu (firm) ??? 1/2 cup has 20 g of protein. ?? Tuna (canned in water) ??? 3 oz has 20 g of protein. ?? Yogurt ??? 6 oz has 8 g of protein. Fall Prevention ?? Use night lights. ?? Install grab bars by the toilet and in the tub and shower. Do not use towel bars as grab bars. ?? Use non-skid mats or decals on the floor of the tub or shower. ?? If you need to sit down while you are in the shower, use a plastic, non-slip stool. ?? Keep the floor dry. Immediately clean up any water that spills on the floor. ?? Remove soap buildup in the tub or shower on a regular basis. ?? Remove throw rugs and other tripping hazards from the floor. ?? Place frequently used items in upud-rp-nnpum places ?? Keep electrical cables out of the way. ?? Do not leave any items on the stairs. ?? Make sure that there are handrails on both sides of the stairs. Fix handrails that are broken or loose. Make sure that handrails are as long as the stairways. ?? Check any carpeting to make sure that it is firmly attached to the stairs. Fix any carpet that is loose or worn. ?? Avoid having throw rugs at the top or bottom of stairways, or secure the rugs with carpet tape to prevent them from moving. ?? Wear closed-toe shoes that fit well and support your feet. Wear shoes that have rubber soles or low heels. ?? Use mobility aids as needed, such as canes, walkers, scooters, and crutches. ?? Turn on lights if it is dark. Replace any light bulbs that burn out. ?? Set up furniture so that there are clear paths. Keep the furniture in the same spot. ?? Be aware of any and all pets. ?? Review your medicines with your healthcare provider. Some medicines can cause dizziness or changes in blood pressure, which increase your risk of falling. Hand Washing You should wash your hands whenever you think they are dirty. You should also wash your hands: ??? After: ?? Working or playing outside. ?? Touching an animal or its toys or leash. ?? Handling livestock. ?? Using the bathroom. ?? Using household paper bag machine operator or toxic chemicals. ?? Touching or taking out the garbage. ?? Touching anything dirty around your home. ?? Handling soiled clothes or rags. ?? Taking care of a sick child. This includes touching used tissues, toys, and clothes. ?? Sneezing, coughing, or blowing your nose. ?? Using public transportation. ?? Shaking hands. ?? Using a phone, including your mobile phone. ?? Touching money. ??? Before and after: ?? Preparing food. ?? Feeding a baby or young child. ?? Eating. ?? Visiting or taking care of someone who is sick. ?? Changing a diaper. ?? Changing a bandage (dressing) or taking care of an injury or wound. ?? Giving or taking medicine. If soap and clean water are not available, use an alcohol-based wipe, spray, or hand gel. Use a hand-sanitizing agent that contains at least 60% alcohol. If you are preparing food, hand sanitizers are not recommended as a substitute for hand washing. Walker Use To Walk With a Front-Wheeled Walker: 1. Slide your front-wheeled walker one step-length in front of you. Your toes should be farther forward than the back legs of your walker. 2. Hold on to the walker for support, and step your weaker (surgery) leg into the middle of the walker. 3. Step your stronger leg forward to land next to your weaker leg. 4. Repeat the process for each step. ?? Always keep both feet within the width of the walker's legs or wheels. ?? When using your walker, you should not feel like you need to lean forward or to the side to keep your hands on the handgrips. ?? Make sure you are following any weight-bearing instructions that your health care provider has given you. ?? Be careful not to let the walker get too far ahead of you as you walk. ?? If your walker does not glide well over carpet, consider cutting an X into two tennis balls and placing the balls over the back legs of your walker. How to use a walker on a curb or step To Use a Walker to Step Up: 1. Put all four legs of the walker on the curb or step. 2. Get your feet as close to the curb or step as you can. 3. Test the steadiness of the walker by pressing down on the handgrips. 4. If the walker is steady, press down on it with your hands as you step up with your stronger leg. 5. Step up with your weaker leg. To Use a Walker to Step Down: 1. Put all four legs of the walker on the surface that is lower than the curb or step. 2. Get your feet as close to the curb or step as you can. 3. Test the steadiness of the walker by pressing down on the handgrips. 4. If the walker is steady, press down on it with your hands as you step down with your weaker leg. 5. Step down with your stronger leg. documented in this encounter Plan of Treatment Not on file documented as of this encounter Visit Diagnoses Not on filedocumented in this encounter
--- OUTSIDE RECORDS SUMMARY | 2024-08-19 13:32 | XMS_ITS | Encounter Summary ---
Author Organization [employer] Address [address] [place] [address] Care Team Providers Care Analytical Engineer Name Role Phone Unavailable Primary Care Provider Grady peres Encounter Details Date Type Department Care Team (Late st Contact Info) Description 07/15/2018 Transcribed Document [facility] [place] [facility] [place] [address] ProviderKristel MD [address] [place] [address] Social History Tobacco Use Types Packs/Day [...] AM CDT Pain Assessment Entered On: 07/16/2018 2:49 EDT Performed On: 07/15/2018 23:33 EDT by Karina Zimmer LPN Intervention Information: oxyCODONE Performed by Karina Zimmer LPN on 07/15/2018 22:33:00 EDT oxyCODONE,10mg Oral,Pain (Severe 7-10) Pain Assessment Pain Assessment : Follow-up assessment Pain Scale Goal : 4 Pain Scale Used : 0-10 Scale Karina Zimmer LPN - 07/16/2018 2:48 EDT Pain Scale Intensity : 4 Karina Zimmer LPN - 07/16/2018 2:48 EDT Image 4 - Images currently included in the form version of this document have not been included in the text rendition version of the form. documented in this encounter Plan of Treatment Not on file documented as of this encounter Visit Diagnoses Not on filedocumented in this encounter
--- OUTSIDE RECORDS SUMMARY | 2024-08-19 13:32 | XMS_ITS | Encounter Summary ---
Author Organization [employer] Address [address] [place] [address] Care Team Providers Care Acid Mixer Name Role Phone Unavailable Primary Care Provider Unavailabl e Encounter Details Date Type Department Care Team (Late st Contact Info) Description 07/22/2018 Transcribed Document [facility] [place] Medicine [facility] [place] [address] ProviderKristel MD [facility] [place] [address] Social History Tobacco Use Types [...] Cerner Conversion Note - Historical ProviderMD - 07/22/2018 12:50 PM CDT UM Authorization Entered On: 07/22/2018 12:50 EDT Performed On: 07/22/2018 12:50 EDT by LYNN REID RN-Utilization Review Primary Insurance Authorization Authorization and Policy Numbers : Insurance 1 Health Plan: [employer] PPO Policy Number: [id number] Authorization Number: [id number] Insurance Primary Name : [employer] Medicare Authorization Status-Primary : Notification only Reference Number-Primary : [id number] Authorization Number-Primary : [id number] Authorized Service Begin Date-Primary : 07/15/2018 EDT Authorization Comments-Primary : approved per availity for inpt Historical Authorization Comments-Primary : Comment 1: Uploaded clinicals to [employer] via [employer] by . (ERICK JONES RN-Utilization Review 07/15/2018 15:49) LYNN REID RN-Utilization Review - 07/22/2018 12:50 EDT documented in this encounter Plan of Treatment Not on file documented as of this encounter Visit Diagnoses Not on filedocumented in this encounter
--- OUTSIDE RECORDS SUMMARY | 2024-08-19 13:32 | XMS_ITS | Encounter Summary ---
Author Organization [employer] Address [address] [place] [address] Care Team Providers Care Maintenance Coordinator Name Role Phone Unavailable Primary Care Provider Unavailabl e Encounter Details Date Type Department Care Team (Late st Contact Info) Description 07/16/2018 Transcribed Document [facility] [place] Family Medicine [facility] [place] [address] ProviderKristel MD [facility] [place], [place] [address] Social History Tobacco Use Types Packs/Day Years [...] Conversion Note - Historical ProviderMD - 07/16/2018 9:10 AM CDT Nursing Discharge Summary Entered On: 07/16/2018 9:11 EDT Performed On: 07/16/2018 9:10 EDT by Meche Oshea RN Discharge Documentation Patient Disposition, General : Discharge Discharge To : Home with ambulatory/outpatient follow-up Mode Of Departure, General Discharge : Private vehicle Accompanied By, Discharge : Care provider IV Discontinued : Yes Personal Belongings With Patient : Yes Discharge Instructions Reviewed With, Opportunity For Questions Given : Patient Teaching Method : Demonstration, Explanation, Printed materials Teaching Evaluation : Verbalizes understanding Meche Oshea RN - 07/16/2018 9:10 EDT documented in this encounter Plan of Treatment Not on file documented as of this encounter Visit Diagnoses Not on filedocumented in this encounter
--- OUTSIDE RECORDS SUMMARY | 2024-08-19 13:32 | XMS_ITS | Encounter Summary ---
Author Organization [employer] Address [address] [place], [place] [id number] Care Team Providers Care Filer Finish Name Role Phone Unavailable Primary Care Provider Grady peres Encounter Details Date Type Department Care Team (Late st Contact Info) Description 07/16/2018 Transcribed Document [facility] Family Medicine [facility] [place] [address] ProviderKristel MD [facility] [place] [address] Social History Tobacco Use Types [...] Conversion Note - Historical ProviderMD - 07/16/2018 2:00 AM CDT Support Worker Details Entered On: 07/16/2018 2:49 EDT Performed On: 07/16/2018 2:00 EDT by Karina Zimmer LPN Order Details Transport Mode Order Detail : Ambulatory Isolation Precautions Order Detail : Standard Precautions Order Detail : N/A IV Order Detail : 1 Oxygen Order Detail : 1 Nurse Collect Order Detail : 0 Lift/Transfer : Independent Central Line Order Detail : No Room Service : Appropriate Arterial Line : No Karina Zimmer LPN - 07/16/2018 2:48 EDT documented in this encounter Plan of Treatment Not on file documented as of this encounter Visit Diagnoses Not on filedocumented in this encounter
--- OUTSIDE RECORDS SUMMARY | 2024-08-19 13:32 | XMS_ITS | Encounter Summary ---
Author Organization [email or web address] Address [address] [place] [id number] Care Team Providers Care Reflow Operator Name Role Phone Unavailable Primary Care Provider Unavailabl e Encounter Details Date Type Department Care Team (Late st Contact Info) Description 07/15/2018 Transcribed Document [facility] Radiology [address] [place] [address] Ronal Robert MD [address] [place] [address] [address] [id number] Social History Tobacco Use Types Packs/Day Years Used Date Smoking Tobacco: Never Assessed Comments Unknown Sex and Gender Information Value Date Recorded Sex Assigned at Female 09/06/2021 8:30 PM CDT Legal Sex Female 8:30 PM CDT Gender Identity Female 09/06/2021 8:30 PM CDT Sexual Orientation Not on file documented as of this encounter Miscellaneous Notes * Cerner Conversion Note - Ronal Robert MD - 07/15/2018 11:58 AM EDT Patient: CINDY LABOY Age: 73 years Sex: Female : 1945 Associated Diagnoses: None Author: RONAL ROBERT MD Basic Information Source of history: Self, Family member, Medical record. Present at bedside: Family member, Medical personnel. Referral source: DEREK MERRITT MD-[facility]. History limitation: None. Primary Care Provider RANDAL ALBARADO MD (REF)-[facility] Chief Complaint Right hip pain History of Present Illness This patient is a pleasant 73 yo WF who presents with right hip pain. The pain has been going on for a year but has gotten progressively worse. She describes it as a stabbing pain. It is now to the point that it is affecting her ADLs. She has tried Tylenol, NSAIDs, and injections without relief of her pain. She has not fallen. She has used a walker as an assistive device. She saw Dr Merritt who evaluated her and determined that she has severe DJD affecting the right hip. Pt was offered a Right Total Hip Arthroplasty via Anterior Approach and agreed to the procedure. After the procedure, patient was complaining of pain around the surgery site, pain does not radiate, 5 out of 10, worse with movement and changing position, better with pain medicine, patient denied any chest pain, shortness of breath, nausea or vomiting after surgery, patient was hemodynamically stable. Review of Systems Constitutional: [No fevers, chills, sweats] Eye: [No recent visual problems, eye discharge, eye pain, redness] HEENT: [No ear pain, nasal congestion, sore throat, voice changes] Respiratory: [No shortness of breath, cough, pain on breathing, sputum production] Cardiovascular: [No Chest pain, palpitations, syncope, shortness of breath while laying flat] Gastrointestinal: [No nausea, vomiting, diarrhea, constipation] Genitourinary: [No hematuria, dysuria, incontinence, lesions on genitalia] Rey/Lymph: [Negative for bruising tendency, swollen lymph glands, nosebleeds, history of anticoagulation] Endocrine: [Negative for excessive thirst, excessive hunger, excessive urination, heat or cold intolerance] Musculoskeletal: Right hip pain Integumentary: [No rash, pruritus, abrasions, lesions] Neurologic: [No weakness, numbness, frequent headaches, tremors, blackouts ] Psychiatric: [No anxiety, depression, mood changes, hallucinations] Health Status Allergies: Allergic Reactions (Selected) Severity Not Documented Decongestant- Heart rate increase. Diclofenac- Facial swelling. Doxycycline- Yeast infection. Ketoprofen- No reactions were documented. Latex- No reactions were documented., Allergies (5) Active Reaction Decongestant Heart rate increase diclofenac Facial swelling doxycycline Yeast infection ketoprofen None Documented Latex None Documented Current medications: (Selected) Inpatient Medications Ordered ALPRAZolam: 0.5 mg, Oral, QID Ancef: 1,000 mg, 50 mL, 100 mL/Hr, IV Piggyback, 1-Time Benadryl: 12.5 mg, Oral, At Bedtime, PRN: Insomnia Benadryl: 25 mg, Oral, Q4H, PRN: Itching Colace: 100 mg, Oral, BID Cyklokapron 1,000 mg + syringe 1 Each + Sodium Chloride 0.9% intravenous solution 20 mL: 1,000 mg, 10 mL, 30 mL/Hr, Topical, 1-Time Dulcolax Laxative: 10 mg, Rectal, 1-Time, PRN: Constipation Protonix: 40 mg, Oral, Daily Senokot S: 2 Tab, Oral, At Bedtime Sodium Chloride 0.9% intravenous solution 1,000 mL: 100 mL/Hr, IntraVENous, Stop: 07/15/18 18:14:00 EDT Sodium Chloride 0.9% intravenous solution 1,000 mL: 50 mL/Hr, IntraVENous Tylenol: 1,000 mg, Oral, Q6HInt Vitamin B12: 2,500 mcg, SubLINgual, Daily Vitamin D3: 1,000 Int Units, Oral, Daily Zofran: 4 mg, IV Push, Q8H, PRN: Nausea aspirin: 81 mg, Oral, BID levothyroxine: 150 mcg, Oral, Daily metoclopramide: 5 mg, IV Push, Q4H, PRN: Nausea/Vomiting multivitamin: 1 Tab, Oral, Daily naloxone: 0.1 mg, IV Push, Q5Min, PRN: Oversedation oxyCODONE: 10 mg, Oral, Q4H, PRN: Pain (Severe 7-10) oxyCODONE: 5 mg, Oral, Q4H, PRN: Pain (Moderate 4-6) senna: 8.6 mg, Oral, At Bedtime, PRN: Constipation traMADol: 50 mg, Oral, Q6H While Awake Incomplete Metoprolol Tartrate 50 mg oral tablet: 50 mg, 1 Tab, Oral, BID zinc (as gluconate) 50 mg oral tablet: 1 Tab, Oral, Daily Documented Medications Documented ALPRAZolam 0.5 mg oral tablet: 1 Tab, Oral, QID, 0 Refill(s) Metoprolol Tartrate 50 mg oral tablet: 1 Tab, Oral, BID, 0 Refill(s) Vitamin B12: 2,500 mcg, SubLINgual, Daily, 0 Refill(s) Vitamin D3: 1,000 Int Units, Oral, Daily, 0 Refill(s) hydroCHLOROthiazide-triamterene 25 mg-37.5 mg oral tablet: 0.5 Tab, Oral, Daily, 0 Refill(s) levothyroxine: 150 mcg, Oral, Daily, 0 Refill(s) zinc (as gluconate) 50 mg oral tablet: 1 Tab, Oral, Daily, 0 Refill(s), Medications (24) Active Scheduled: (13) acetaminophen 500 mg tab 1,000 mg 2 Tab, Oral, Q6HInt ALPRAZolam 0.5 mg tab 0.5 mg 1 Tab, Oral, QID aspirin EC 81 mg tab 81 mg 1 Tab, Oral, BID ceFAZolin 1,000 mg 50 mL, IV Piggyback, 1-Time cholecalciferol 1,000 Int Units, Oral, Daily cyanocobalamin 2,500 mcg, SubLINgual, Daily docusate sodium 100 mg cap 100 mg 1 Cap, Oral, BID levothyroxine 150 mcg (0.15 mg) tab 150 mcg 1 Tab, Oral, Daily multiple vitamin (Thera) tab 1 Tab, Oral, Daily pantoprazole EC 40 mg tab 40 mg 1 Tab, Oral, Daily senna/docusate 8.6/50 mg tab 2 Tab, Oral, At Bedtime traMADol 50 mg tab 50 mg 1 Tab, Oral, Q6H While Awake tranexamic acid 1,000 mg + syringe 1 Each + NaCl 0.9% 20 mL 1,000 mg 10 mL, Topical, 1-Time Continuous: (2) NaCl 0.9% 1,000 mL 1,000 mL, IntraVENous, 100 mL/Hr NaCl 0.9% 1,000 mL 1,000 mL, IntraVENous, 50 mL/Hr PRN: (9) bisacodyl 10 mg supp 10 mg 1 Supp, Rectal, 1-Time diphenhydrAMINE 25 mg tab 25 mg 1 Tab, Oral, Q4H diphenhydrAMINE 25 mg tab 12.5 mg 0.5 Tab, Oral, At Bedtime metoclopramide 10 mg/2 mL inj 5 mg 1 mL, IV Push, Q4H naloxone 0.4 mg/1 mL inj 0.1 mg 0.25 mL, IV Push, Q5Min ondansetron 4 mg/2 mL inj 4 mg 2 mL, IV Push, Q8H oxyCODONE 5 mg tab 5 mg 1 Tab, Oral, Q4H oxyCODONE 5 mg tab 10 mg 2 Tab, Oral, Q4H senna 8.6 mg tab 8.6 mg 1 Tab, Oral, At Bedtime Problem list: Medical SVT (supraventricular tachycardia) / SNOMED CT 20279363 / Confirmed Hypertension / SNOMED CT 2372937861 / Confirmed Hypothyroidism / SNOMED CT 22959300 / Confirmed Anxiety disorder / SNOMED CT 105249050 / Confirmed COPD (chronic obstructive pulmonary disease) / SNOMED CT 96645842 / Confirmed Osteoarthritis / SNOMED CT 4368487149 / Confirmed Hyperlipidemia / SNOMED CT 98836757 / Confirmed At risk for sleep apnea / IMO [id number] / Confirmed, Active Problems (8) Anxiety disorder At risk for sleep apnea COPD (chronic obstructive pulmonary disease) Hyperlipidemia Hypertension Hypothyroidism Osteoarthritis SVT (supraventricular tachycardia) Histories Past Medical History: Active Problems (8) Anxiety disorder At risk for sleep apnea COPD (chronic obstructive pulmonary disease) Hyperlipidemia Hypertension Hypothyroidism Osteoarthritis SVT (supraventricular tachycardia) Family History: Significant for cancer Procedure history: Thyroidectomy (56958627). Tonsillectomy (382300492). Cholecystectomy (81077145). Tubal ligation (853906080). - Spontaneous vaginal delivery. left hip replacment. Social History Social & Psychosocial Habits Alcohol 06/28/2018 Alcohol Use History, Social Habits No Substance Abuse 06/28/2018 Recreational Drug Use History No Tobacco 06/28/2018 Smoking Status 10 or more cigarettes (1/ Smokeless Tobacco Status Never . Physical Examination VS/Measurements Vitals Signs (last 24 hrs) Last Charted Minimum Maximum Temp 97.4 (JULY 15 10:07) 97.0 (JULY 15 09:21) 99.2 (JULY 15 06:15) Apical HR 67 (JULY 15 06:15) 67 (JULY 15 06:15) 67 (JULY 15 06:15) Mon HR 60 (JULY 15 10:10) 60 (JULY 15 10:00) 82 (JULY 15 09:21) Resp Rate 16 (JULY 15 10:07) 16 (JULY 15 06:15) 16 (JULY 15 06:15) SBP 109 (JULY 15 10:07) 107 (JULY 15 09:25) H 143 (JULY 15 06:15) DBP L 51 (JULY 15 10:07) L 47 (JULY 15 09:21) 77 (JULY 15 06:15) MAP 73 (JULY 15 10:10) 73 (JULY 15 09:21) 80 (JULY 15 09:30) SpO2 95 (JULY 15 10:10) L 90 (JULY 15 09:35) 99 (JULY 15 06:15) GENERAL: The patient is a well-developed, well-nourished, no apparent distress. alert and oriented x3. Head : is normocephalic and atraumatic. EYES: Extraocular muscles are intact. Pupils are equal, round, and reactive to light and accommodation. NECK: Supple. No carotid bruits. No lymphadenopathy or thyromegaly. LUNGS: Clear to auscultation. No added sounds. No tenderness HEART: Regular rate and rhythm without murmur. No heave ABDOMEN: Soft, nontender, and nondistended. Positive bowel sounds. No hepatosplenomegaly was noted. EXTREMITIES: Without any cyanosis, clubbing, rash, lesions or edema. PSYCHIATY: Anxious and cooperative SKIN: No ulceration or induration present. Musculoskeletal : Right hip region pain, wound VAC in place Review / Management CBC Results (Current Encounter/Past 24 Hours) Hct 35.1 % 07/15/2018 09:44 Hgb 11.9 Gram/dL 07/15/2018 09:44 Impression and Plan 1.Right Hip Pain secondary to DJD- status post total right hip arthroplasty by Dr Merritt on 07/15/2018 - Continue IV pain control. - Continue IV fluids for hydration. - Continue incentive spirometry - Physical Therapy for early mobilization. - Deep venous thrombosis and gastrointestinal prophylaxis . - Diet recommendation will be by Surgery \ 2. COPD- Nebs/Inhalers prn. Stable 3. Hypertension- hold HCTZ/Triamterene and continue Metoprolol. 4. Hypothyroidism- Continue Synthroid. 5. Anxiety- Continue Alprazolam. DVT and GI prophylaxis Past medical history reviewed Labs reviewed Medications reviewed Preoperative note reviewed CODE STATUS full code Time spent 40 minutes documented in this encounter Plan of Treatment Not on file documented as of this encounter Visit Diagnoses Not on filedocumented in this encounter
--- OUTSIDE RECORDS SUMMARY | 2024-08-19 13:32 | XMS_ITS | Encounter Summary ---
Author Organization [employer] Address [address] [place] [id number] Care Team Providers Care Artists' Model Name Role Phone Unavailable Primary Care Provider Unavailabl e Encounter Details Date Type Department Care Team (Late st Contact Info) Description 07/15/2018 Transcribed Document [facility] [place] On license of [facility] [place] [address] ProviderKristel MD [address] [place] [id number] Social History Tobacco Use Types Packs/Day [...] 07/15/2018 8:01 AM CDT [facility] Main OR IntraOp Summary Primary Physician: DEREK DURAN MD-ORT Finalized Date/Time: 07/15/18 09:37:40 Pt. Name: EDOSN LABOY /Sex: 1945 Female Med Rec #: [id number] Physician: DEREK DURAN MD-ORT Financial #: [id number] Pt. Type: I Room/Bed: [facility] Admit/Disch: 07/15/18 04:51:00 - Institution: [facility] [place] IntraOp Case Attendance Entry 1 Entry 2 Entry 3 Case Attendee Ney Ann ST Austin, Martha Wells RN Role Performed Scrub, Second Scrub, First Filter Bed Placer, First Time In 07/15/18 07:28:00 07/15/18 07:28:00 07/15/18 07:28:00 Time Out 07/15/18 09:18:00 07/15/18 09:18:00 07/15/18 09:18:00 Procedure Hip Total Anterior Hip Total Anterior Hip Total Anterior Approach Approach Approach Other Attendee Superficial Wound Closed By: Last Modified By: Martha Torrez RN Bland, Jordyn A, RN Bland, Jordyn A, RN 07/15/18 09:35:33 07/15/18 09:35:34 07/15/18 09:35:33 Entry 4 Entry 5 Entry 6 Case Attendee DEREK DURAN, Deedee Brown, Frankie Brooks, Aysha Guerra MD-ORT Tech Lining Strap Closer Role Performed Surgeon/Proceduralist, Assistive Personnel Director Of Patient Care First Time In 07/15/18 07:59:00 07/15/18 07:28:00 07/15/18 07:28:00 Time Out 07/15/18 09:18:00 07/15/18 09:18:00 07/15/18 09:18:00 Procedure Hip Total Anterior Hip Total Anterior Hip Total Anterior Approach Approach Approach Other Attendee Superficial Wound Closed By: Last Modified By: Martha Torrez RN Bland, Jordyn A, RN Bland, Jordyn A, RN 07/15/18 09:35:33 07/15/18 09:35:33 07/15/18 09:35:33 Entry 7 Entry 8 Entry 9 Case Attendee CLARITZA VEGAS, CELSO DAMON, NURSE WOUND MAHAMED BE, PAC Role Performed Child Care Group Leader, First NURSE WOUND/Nurse Nuclear Equipment Design Engineer Physician field research assistant Time In 07/15/18 07:28:00 07/15/18 07:28:00 07/15/18 08:25:00 Time Out 07/15/18 08:26:00 07/15/18 09:18:00 07/15/18 09:18:00 Procedure Hip Total Anterior Hip Total Anterior Hip Total Anterior Approach Approach Approach Other Attendee Superficial Wound Closed By: Last Modified By: Martha Torrez RN Bland, Jordyn A, RN Bland, Jordyn A, RN 07/15/18 09:35:33 07/15/18 09:35:33 07/15/18 09:35:34 Entry 10 Case Attendee OTHER, ATTENDEE Role Performed Vendor Time In 07/15/18 07:28:00 Time Out 07/15/18 09:18:00 Procedure Hip Total Anterior Approach Other Attendee JER DIXON Superficial Wound Closed By: Last Modified By: Martha Torrez RN 07/15/18 09:35:34 [facility] IntraOp Case Attendance Audit 07/15/18 09:35:34 Drilling Plant Operator: KARLOS Modifier: KARLOS 8 <+> Time Out 8 <*> Procedure Hip Total Anterior Approach 9 <+> Time Out 9 <*> Procedure Hip Total Anterior Approach 10 <+> Time Out 10 <*> Procedure Hip Total Anterior Approach 07/15/18 09:35:33 Drilling Plant Operator: KARLOS Modifier: KARLOS 1 <+> Time Out 1 <*> Procedure Hip Total Anterior Approach 2 <+> Time Out 2 <*> Procedure Hip Total Anterior Approach 3 <+> Time Out 3 <*> Procedure Hip Total Anterior Approach 4 <+> Time Out 4 <*> Procedure Hip Total Anterior Approach 5 <+> Time Out 5 <*> Procedure Hip Total Anterior Approach 6 <+> Time Out 6 <*> Procedure Hip Total Anterior Approach 7 <*> Procedure Hip Total Anterior Approach 07/15/18 08:26:33 Drilling Plant Operator: KARLOS Modifier: KARLOS 7 <+> Time Out 7 <*> Procedure Hip Total Anterior Approach 9 <*> Time In 07/15/18 07:28:00 9 <*> Procedure Hip Total Anterior Approach 07/15/18 08:01:40 Drilling Plant Operator: KARLOS Modifier: KARLOS 1 <*> Case Attendee DERKE DURAN MD-ORKevin 1 <*> Role Performed Surgeon/Proceduralist, First 1 <*> Time In 07/15/18 07:28:00 1 <*> Procedure Hip Total Anterior Approach 2 <*> Case Attendee Martha Torrez, RN 2 <*> Role Performed Filter Bed Placer, First 2 <*> Time In 07/15/18 07:28:00 2 <*> Procedure Hip Total Anterior Approach 3 <*> Case Attendee Nae Saez 3 <*> Role Performed Scrub, First 3 <*> Time In 07/15/18 07:28:00 3 <*> Procedure Hip Total Anterior Approach 4 <*> Case Attendee Ney Ann, ST 4 <*> Role Performed Scrub, Second 4 <*> Time In 07/15/18 07:28:00 4 <*> Procedure Hip Total Anterior Approach 5 <*> Case Attendee Deedee Brown, Craniologist 5 <*> Role Performed Assistive Personnel 5 <*> Time In 07/15/18 07:28:00 5 <*> Procedure Hip Total Anterior Approach 6 <*> Case Attendee CLARITZA VEGAS, CSA 6 <*> Role Performed Child Care Group Leader, First 6 <*> Time In 07/15/18 07:28:00 6 <*> Procedure Hip Total Anterior Approach 7 <*> Case Attendee MAHAMED BE, PAC 7 <*> Role Performed Physician field research assistant 7 <*> Time In 07/15/18 07:28:00 7 <*> Procedure Hip Total Anterior Approach 8 <*> Case Attendee OTHER, ATTENDEE 8 <*> Role Performed Vendor 8 <*> Time In 07/15/18 07:28:00 8 <*> Procedure Hip Total Anterior Approach 8 <-> Other Attendee JER DIXON 9 <*> Case Attendee Aysha Brooks, Lining Strap Closer 9 <*> Role Performed Director Of Patient Care 9 <*> Time In 07/15/18 07:28:00 9 <*> Procedure Hip Total Anterior Approach 10 <*> Case Attendee CELSO QUISPE CRNA 10 <*> Role Performed NURSE WOUND/Nurse Nuclear Equipment Design Engineer 10 <+> Time In 10 <*> Procedure Hip Total Anterior Approach 10 <+> Other Attendee 07/15/18 07:52:23 Drilling Plant Operator: KARLOS Modifier: KARLOS 1 <+> Time In 1 <*> Procedure Hip Total Anterior Approach 2 <+> Time In 2 <*> Procedure Hip Total Anterior Approach 3 <+> Time In 3 <*> Procedure Hip Total Anterior Approach 4 <+> Time In 4 <*> Procedure Hip Total Anterior Approach 5 <+> Time In 5 <*> Procedure Hip Total Anterior Approach 6 <+> Time In 6 <*> Procedure Hip Total Anterior Approach 7 <+> Time In 7 <*> Procedure Hip Total Anterior Approach 8 <+> Time In 8 <*> Procedure Hip Total Anterior Approach 9 <*> Case Attendee CHADWICK PANCHAL RT 9 <+> Time In 9 <*> Procedure Hip Total Anterior Approach <+> 10 Case Attendee <+> 10 Role Performed <+> 10 Procedure [facility] IntraOp Case Times Entry 1 Patient In Room Time 07/15/18 07:28:00 Out Room Time 07/15/18 09:18:00 Anesthesia Start Time 07/15/18 07:28:00 Stop Time 07/15/18 09:18:00 Anesthesia Ready 07/15/18 07:28:00 Surgery / Procedure Times Start Time 07/15/18 08:01:00 Stop Time 07/15/18 09:08:00 Last Modified By: Martha Torrez RN 07/15/18 09:35:17 [facility] IntraOp Case Times Audit 07/15/18 09:35:17 Drilling Plant Operator: KARLOS Modifier: JORDYNBLAND <+> 1 Out Room Time <+> 1 Stop Time 07/15/18 09:08:56 Drilling Plant Operator: KARLOS Modifier: JORDYNBLAND <+> 1 Stop Time 07/15/18 08:01:26 Drilling Plant Operator: MARTHABLNITIN Modifier: JORDYNBLAND <+> 1 Start Time [facility] IntraOp Cautery Entry 1 ESU Identification Cautery Type Monopolar ESU ID Number [id number] ID Type Hospital Number Cautery Settings Cut Setting 70 Coag Setting 70 ESU Grounding Pad Ground Pad Type Adult Grounding Pad Site Left Upper Abdomen Grounding Pad Martha Torrez RN Applied By Grounding Pad Site Warm, dry and intact Skin Condition Before Cautery Grounding Pad Site Unchanged, Warm, dry Skin Condition and intact After Cautery Last Modified By: Martha Torrez RN 07/15/18 07:52:44 [facility] IntraOp Communication Entry 1 Communication To Family/Significant other Comment START Communication By Martha Torrez RN Date and Time 07/15/18 08:01:00 Last Modified By: Martha Torrez RN 07/15/18 08:01:49 [facility] IntraOp Counts Verification Entry 1 Entry 2 Procedure Hip Total Anterior Hip Total Anterior Approach Approach Count Info Count Type Sponge, Sharps, Sponge, Sharps, Miscellaneous Miscellaneous Counts Verification Baseline/pre-procedure Before wound closure Sequence Count Results Correct, surgeon Correct, surgeon notified notified If Incorrect or Waived complete the Counts Action Taken form: If Intentional Retention, complete the Intential Retention form: Counts Performed By Count Performed By Nae Saez Sarah (Scrub) Count Performed By Martha Torrez RN Bland, Jordyn A, RN (RN) Last Modified By: Martha Torrez RN Bland, Jordyn A, RN 07/15/18 07:07:32 07/15/18 08:50:53 [facility] IntraOp Counts Verification Audit 07/15/18 08:50:53 Drilling Plant Operator: KARLOS Modifier: SALENAAND <+> 2 Procedure <+> 2 Count Type <+> 2 Counts Verification Sequence <+> 2 Count Results <+> 2 Count Performed By (Scrub) <+> 2 Count Performed By (RN) [facility] IntraOp Counts Final Entry 1 Procedure Hip Total Anterior Approach Final Count Info Count Type Sponge, Sharps, Miscellaneous Counts Verification Skin Closure/end of Sequence procedure Count Results Correct, surgeon notified Counts Performed By Count Performed By Nae Saez (Scrub) Count Performed By Martha Torrez RN (RN) Last Modified By: Martha Torrez RN 07/15/18 09:01:28 [facility] IntraOp Cultures and Spec Summary Entry 1 Cultrures and Specimens Specimen Ordered: Yes Specimens Types Pathology Specimen(s) Labeled Pathology and Sent to Last Modified By: Martha Torrez RN 07/15/18 07:52:46 [facility] IntraOp Departure from OR Entry 1 Integumentary Assessment Transfer/Handoff Transfer to PACU Phase I Handoff Method Bedside/Face to face Post-op Transport Bed (including Via specialty) Patient Transport CELSO QUISPE CRNA, Accompanied by Martha Torrez RN Last Modified By: Martha Torrez RN 07/15/18 09:01:34 General Comments: REDNESS NOTED TO RIGHT UPPER KNEE FROM DRAPING DURING PROCEDURE; JORGE LUIS CHAVEZ AND MD ROGER AWARE. [facility] IntraOp Drains and Tubes Entry 1 Device Type Hemovac Size MED. Drain/Tube Activity Inserted Drain/Tube Suction Not applicable Device Location RIGHT HIP Method of Drainage Compression Last Modified By: Martha Torrez RN 07/15/18 07:52:53 [facility] IntraOp Dressing and Packing Entry 1 Type Dressing Location RIGHT HIP Wound Dressing Item Occlusive dressing, Skin Closure Glue Applied By MAHAMED BE PAC Other Comments MEPILEX; DERMABOND Last Modified By: Martha Torrez RN 07/15/18 07:53:04 [facility] IntraOp Fire Risk Assessment Entry 1 Fire Info Surgical Site or 0- No Incision Above the Xyphoid Open O2 Source 0- No (Mask or Cannula) Available Ignition 1- Yes (ESU, Laser, Light Source) Fire Risk 1 Assessment Score Fire Score Fire Risk Yes Assessment Complete Fire Risk Martha Torrez RN Assessment Verified By Fire Risk 07/15/18 07:07:00 Assessment Verified Date/Time Fire Risk High Risk Protocol Yes Implemented Standard Fire Yes Safety Precautions Followed Last Modified By: Martha Torrez RN 07/15/18 07:07:36 [facility] IntraOp General Case Outcome Analyst 1 Case Information OR OR 01 SJE Case Level 1 Room Verified Yes Wound Class I - Clean Specialty SN Orthopedic Anesthesia Type General ASA Class 4 Diagnosis Preop Diagnosis DJD RIGHT HIP Postop Same As Preop No Postop Diagnosis DICTATED BY MD Last Modified By: Martha Torrez RN 07/15/18 07:53:11 E IntraOp General Case Data Audit 07/15/18 07:53:11 Drilling Plant Operator: KARLOS Modifier: KARLOS <+> 1 ASA Class <+> 1 Preop Diagnosis [facility] IntraOp Implant Log Entry 1 Entry 2 Entry 3 Type Implant (Synthetic) Implant (Synthetic) Implant (Synthetic) Implant Log Implant Type Hardware Hardware Hardware Tissue Implant Type Implant SHELL ACET LOGICAL 48MM LNER LGCL CP 50MM STEM HIP COXA CLLR Identification [id number] ORIGIN [id number] Description Implant Quantity 1 1 1 Implant Site RIGHT HIP RIGHT HIP RIGHT HIP Implant Identification Model Number Implant Identification Serial Number Implant [id number] Identification Lot Number Implant Paxeon Reconstruction Paxeon Reconstruction Paxeon Reconstruction Identification Websphere Administrator Name: Implant [id number] Identification Catalog Number Implant Size Implant Has an Yes Yes Yes Expiration Date Implant Expiration 06/10/23 02/08/23 04/11/23 Date Wasted Radioactive Material Time Implanted Tissue Implant Continue for Tissue Implant Documentation Tissue Identification Number Graft Prep Per Websphere Administrator Instructions: Tissue Preparation Method: Reconstitution Solution: Reconstitution Solution Lot Number Reconstitution Solution Expiration Date: Thawing Solution Thawing Solution Lot Number Thawing Solution Expiration Date Preparation Materials, Other Preparation Materials, Other Lot Number Preparation Materials, Other Expiration Date Tissue Prepared/Processed By Websphere Administrator Paperwork Completed Implant Type Comment Last Modified By: Martha Torrez RN Bland, Jordyn A, RN Bland, Jordyn A, RN 07/15/18 08:26:09 07/15/18 08:26:09 07/15/18 08:47:20 Entry 4 Type Implant (Synthetic) Implant Log Implant Type Hardware Tissue Implant Type Implant HEAD FEM CERC [id number] 32MM Identification [id number] Description Implant Quantity 1 Implant Site RIGHT HIP Implant Identification Model Number Implant Identification Serial Number Implant [id number] Identification Lot Number Implant Paxeon Reconstruction Identification Websphere Administrator Name: Implant [id number] Identification Catalog Number Implant Size Implant Has an Yes Expiration Date Implant Expiration 04/11/23 Date Wasted Radioactive Material Time Implanted Tissue Implant Continue for Tissue Implant Documentation Tissue Identification Number Graft Prep Per Websphere Administrator Instructions: Tissue Preparation Method: Reconstitution Solution: Reconstitution Solution Lot Number Reconstitution Solution Expiration Date: Thawing Solution Thawing Solution Lot Number Thawing Solution Expiration Date Preparation Materials, Other Preparation Materials, Other Lot Number Preparation Materials, Other Expiration Date Tissue Prepared/Processed By Websphere Administrator Paperwork Completed Implant Type Comment Last Modified By: Martha Torrez RN 07/15/18 08:47:20 [facility] IntraOp Implant Log Audit 07/15/18 08:47:20 Drilling Plant Operator: KARLOS Modifier: KARLOS <+> 3 Implant Identification Description <+> 3 Implant Identification Lot Number <+> 3 Implant Identification Websphere Administrator Name: <+> 3 Implant Expiration Date <+> 3 Implant Identification Catalog Number <+> 4 Implant Identification Description <+> 4 Implant Identification Lot Number <+> 4 Implant Identification Websphere Administrator Name: <+> 4 Implant Expiration Date <+> 4 Implant Identification Catalog Number 07/15/18 08:26:09 Drilling Plant Operator: KARLOS Modifier: KARLOS <+> 1 Implant Identification Description <+> 1 Implant Identification Lot Number <+> 1 Implant Identification Websphere Administrator Name: <+> 1 Implant Expiration Date <+> 1 Implant Identification Catalog Number <+> 2 Implant Identification Description <+> 2 Implant Identification Lot Number <+> 2 Implant Identification Websphere Administrator Name: <+> 2 Implant Expiration Date <+> 2 Implant Identification Catalog Number 07/15/18 07:54:53 Drilling Plant Operator: KARLOS Modifier: KARLOS <+> 3 Implant Site <+> 3 Implant Quantity <+> 3 Implant Type <+> 3 Implant Has an Expiration Date <+> 3 Type <+> 4 Implant Site <+> 4 Implant Quantity <+> 4 Implant Type <+> 4 Implant Has an Expiration Date <+> 4 Type [facility] IntraOp Intraoperative Assessment Entry 1 Valid History / Yes Physical in Chart Preoperative Yes Checklist Reviewed/Evaluated Allergies Reviewed Yes Patient is Latex No Sensitive Isolation Not applicable Precautions Noted Skin Assessment Yes Verified Present Upon IVs Arrival to OR Last Modified By: Martha Torrez RN 07/15/18 07:54:57 [facility] IntraOp Intraoperative Equipment Entry 1 Type Equipment Equipment Equipment Jonathan Suction System Setting HIGH Intraop Monitoring Antiembolic Devices Antiembolic Devices Sequential compression device, knee high Antiembolic Device Left Location Scopes Photo/Video Documentation Photo No Video No Last Modified By: Martha Torrez RN 07/15/18 07:55:02 [facility] IntraOp Medication Admin Entry 1 Entry 2 Entry 3 Medication/Irrigant TRANEXAMIC ACID vancomycin 1Gm vial - ANESTHETIC 1000MG/10 ML [id number] COCKTAIL-ROGER [id number] Combo Med List Time Administered Route of TOPICAL; MIXED W/ 25ML TOPICAL INJECTION Administration NACL Dose Dose 1000 1 Unit of Measure mg gram Volume 10ML Administered By DEREK DURAN CHRISTENSEN, ROGER REED CHRISTIAN, MD-ORT MD-ORT MD-ORT Procedure Irrigation Irrigant Volume In Irrigant Volume Out Last Modified By: Martha Torrez RN Bland, Jordyn A, RN Bland, Jordyn A, RN 07/15/18 07:07:44 07/15/18 07:07:44 07/15/18 07:07:44 S[facility] IntraOp Patient Positioning Entry 1 Procedure Hip Total Anterior Approach Body Position Supine Left Arm Position Secured on padded arm board Right Arm Position Secured across chest Left Leg Position Traction Right Leg Position Traction Feet Uncrossed Yes Pressure Points Yes Checked Positioning Devices Table, Fracture, Pillows, Arm Board Device Position SECURE RIGHT SIDE ARM WITH BENIGNO RUEL ACROSS CHEST-PAD WITH EGG CRATE;LEFT ARM ON ARM BOARD; WRAP BOTH FEET WITH COBAN; USE FOAM FOOT PADDING; WRAPPED RIGHT FOOT WITH COBAN AFTER PUTTING IN BOOT Positioned By CLARITZA VEGAS CSA, CELSO QUISPE, LUIS, Deedee Brown, Frankie Martell, Martha Torrez, RN Position Verified Positioning Yes Verified by Anesthesia Positioning Yes Verified by Surgeon Last Modified By: Martha Torrez RN 07/15/18 07:55:54 [facility] IntraOp Sign In Entry 1 Patient, Site, Yes Procedure Identified Surgical Consent Yes Confirmed Relevant Surgical Yes Documents Available Surgical Site Yes Marked by person performing procedure Anesthesia Machine Yes Check Completed Medication Checks Yes Completed Allergies Yes Airway Difficult Yes Airway/Aspiration Intervention Equipment Available Blood Loss Risk Yes Blood Loss Yes Intervention Equipment Prepared and Ready Hypothermia Risk Yes Warming Measures Yes Taken Last Modified By: Martha Torrez RN 07/15/18 07:55:58 [facility] Intra Op Sign Out Entry 1 RN Confirmation Surgical Yes Procedure(s) Identified Instrument, Sponge Yes and Sharps Counts Correct/Documented Equipment Problems Yes Documented Specimen Labeled Yes Correctly Urinary Catheter N/A Documented in IView Mariscal Patient Yes Recovery Concerns Reviewed with Anesthesia Provider, Surgeon and RN Mariscal Patient Yes Management Concerns Reviewed with Anesthesia Provider, Surgeon and RN Safety Checklist Yes Elements Complete? RN Sign Out Martha Torrez RN Signature RN Sign Out 07/15/18 09:18:00 Signature Date/Time Plan of Care Outcome - Fire Risk OUTCOME STATEMENT: Goal met Patient is free from injury related to surgical fire Plan of Care Outcome - Pt Positioning OUTCOME STATEMENT: Goal met Absence of signs and symptoms of positioning injury. Plan of Care Outcome - Skin Prep OUTCOME STATEMENT: Goal met Intraoperative care is consistent with measures to prevent infection Plan of Care Outcome - Xray/Images OUTCOME STATEMENT: Goal met Absence of observable signs or symptoms of radiation injury Plan of Care Outcome - Counts OUTCOME STATEMENT: Goal met Absence of signs and symptoms of injury related to extraneous objects Last Modified By: Martha Torrez RN 07/15/18 09:35:26 [facility] Intra Op Sign Out Audit 07/15/18 09:35:26 Drilling Plant Operator: KARLOS Modifier: KARLOS <+> 1 RN Sign Out Signature Date/Time [facility] IntraOp Skin Prep Entry 1 Procedure Hip Total Anterior Approach Prescribed Yes Pre-Surgical Prep Completed Prep Area RIGHT HIP; WIPE WITH ALCOHOL FIRST, THEN DURAPREP X 2 Intraop Prep Prep Agents DuraPrep, Alcohol Prep by Martha Torrez RN Hair Removal Methods No hair removal performed Last Modified By: Martha Torrez RN 07/15/18 07:56:14 [facility] IntraOp Surgical Procedures Entry 1 Procedure Hip Total Anterior Approach Additional RIGHT TOTAL HIP DIRECT Procedure ANTERIOR Description Primary Procedure Yes Primary Surgeon DEREK DURAN MD-ORT Start 07/15/18 08:01:00 Stop 07/15/18 09:08:00 Anesthesia Type General Specialty SN Orthopedic Wound Class I - Clean Last Modified By: Martha Torrez RN 07/15/18 09:08:57 [facility] IntraOp Surgical Procedures Audit 07/15/18 09:08:57 Drilling Plant Operator: KARLOS Modifier: KARLOS <+> 1 Start <+> 1 Stop [facility] IntraOp Temp Regulation Devices Entry 1 Temp Regulation Temperature Forced Air Warming Regulation Device device Temperature Upper body Regulation Site Temperature CELSO QUISPE CRNA Regulation Device Applied by Last Modified By: Martha Torrez RN 07/15/18 07:56:22 [facility] IntraOp Time Out Entry 1 Procedure to be Hip Total Anterior Performed Approach Time Out Time Out Pause Time 07/15/18 08:00:00 All activity Yes suspended (unless life threatening emergency) Team Verbally Correct patient Confirms Information identity, Correct side and site are marked, Consent form is present and accurate, Agreement on the procedure to be done, Correct patient position, Relevant images/results properly labeled/appropriately displayed, Confirm antibiotics have been administered, Confirm the skin prep has dried, Confirm prosthesis/implant/devic e is present, Performed in location of procedure after prepped/draped Antibiotic Yes Prophylaxis Administered Or In Progress Within the Last 60 Minutes Beta Pat Yes Administered Venous Yes Thromboembolism Prophylaxis Required Anticipated Critical Events Surgeon None expected Anesthesia Provider None expected Nursing Assures Sterility of instruments, Implant Availability Essential Imaging Yes Labeled and Displayed Last Modified By: Martha Torrez RN 07/15/18 08:01:30 S[facility] IntraOp Time Out Audit 07/15/18 08:01:30 Drilling Plant Operator: KARLOS Modifier: KARLOS 1 <+> Time Out Pause Time 1 <*> Procedure to be Performed Hip Total Anterior Approach 07/15/18 07:56:31 Drilling Plant Operator: KARLOS Modifier: KARLOS 1 <+> Beta Pat Administered 1 <*> Procedure to be Performed Hip Total Anterior Approach S[facility] IntraOp X-Ray and Images Entry 1 X-Ray/Imaging Type Fluoroscopy Fluoroscopy Type C-Arm Site RIGHT HIP Craft Recruiter Name Aysha Brooks, Lining Strap Closer Protective Devices Yes Used Last Modified By: Martha Torrez RN 07/15/18 07:56:43 Case Comments <None> Finalized By: Martha Torrez, RN Document Signatures Signed By: Martha Torrez RN 07/15/18 09:37 Electronically signed by Rosario [facility] Conversion Disk Grinder Cerner at 06/29/2022 1:20 PM CDT documented in this encounter Plan of Treatment Not on file documented as of this encounter Visit Diagnoses Not on filedocumented in this encounter
--- OUTSIDE RECORDS SUMMARY | 2024-08-19 13:32 | XMS_ITS | Encounter Summary ---
Author Organization [employer] Address [address] [place] [id number] Care Team Providers Care Travel Accommodations Rater Name Role Phone Unavailable Primary Care Provider Unavailabl e Encounter Details Date Type Department Care Team (Late st Contact Info) Description 07/16/2018 Transcribed Document [facility] [place] [facility] [place] [address] ProviderKristel MD [address] [place] [id number] Social History Tobacco Use Types Packs/Day [...] Conversion Note - Historical ProviderMD - 07/16/2018 11:00 AM CDT Pain Assessment Entered On: 07/16/2018 12:37 EDT Performed On: 07/16/2018 12:09 EDT by Lani Youssef Rn Intervention Information: acetaminophen Performed by Lani Youssef Rn on 07/16/2018 11:09:00 EDT acetaminophen,1000mg Oral Pain Assessment Pain Assessment : Follow-up assessment Pain Scale Goal : 4 Pain Scale Used : 0-10 Scale Lani Youssef Rn - 07/16/2018 12:37 EDT Pain Scale Intensity : 3 Lani Youssef Rn - 07/16/2018 12:37 EDT Image 4 - Images currently included in the form version of this document have not been included in the text rendition version of the form. documented in this encounter Plan of Treatment Not on file documented as of this encounter Visit Diagnoses Not on filedocumented in this encounter
--- OUTSIDE RECORDS SUMMARY | 2024-08-19 13:32 | XMS_ITS | Encounter Summary ---
Author Organization [employer] Address [address] [place] [address] Care Team Providers Care Retort Forker Name Role Phone Unavailable Primary Care Provider Unavailabl e Encounter Details Date Type Department Care Team (Late st Contact Info) Description 07/15/2018 Transcribed Document [facility] [place] Family Medicine [facility] [place] [address] ProviderKristel MD [facility] [address] Social History Tobacco Use Types [...] Conversion Note - Historical ProviderMD - 07/15/2018 6:34 AM CDT Pre Procedure Adult Entered On: 07/15/2018 6:37 EDT Performed On: 07/15/2018 6:34 EDT by Nicole Coley Rn Height and Weight, Clinical Dosing Height Source : Stated Height Entry Format : [place] Height, Feet : 5 ft(Converted to: 152 cm, 60 Inch) Height, Inches : 1 Inch(Converted to: 0 ft 1 Inch, 2.54 cm) Clinical Height : 154.94 cm Weight Source : Standing scale Weight Entry Format : [place] Clinical Dosing Weight : 63.18 kg Weight, Pounds : 139 lb Body Surface Area (BSA) : 1.62 m2 Body Mass Index : 26.3 kg/m2 (HI) [place] Body Weight : 47 kg Nicole Coley Rn - 07/15/2018 6:34 EDT Health Histories Smoking Status : 10 or more cigarettes (1/2 pack or more)/day in last 30 days Smokeless Tobacco Status : Never Desires Tobacco Cessation Medication : No Reason for No Tobacco Cessation Medication : Refuses FDA approved medications Implant/Device Type, Broadcast Designer and Model : left hip replacement, poss. gallbladder clamps Nicole Coley Rn - 07/15/2018 6:34 EDT Social History (As Of: 07/15/2018 06:37:18 EDT) Tobacco: 10 or more cigarettes (1/2 pack or more)/day in last 30 days Smoking Status. Never Smokeless Tobacco Status. (Last Updated: 06/28/2018 10:15:29 EDT by CLARISSA GUERRERO, LISANDRO) Alcohol: Alcohol Use History No. (Last Updated: 06/28/2018 10:15:29 EDT by CLARISSA GUERRERO, RN) Substance Abuse: Drug Use Hx: No. (Last Updated: 06/28/2018 10:15:29 EDT by CLARISSA GUERRERO, RN) Infectious Disease History Infectious Disease History : Chicken pox/Shingles, Measles, Mumps Fever/Chills Last 48 Hours : No Travel To Regions with Travel Advisories : No Travel Outside [place] Within Last 30 Days : No Contact With Traveler to Advisory Region : No Tuberculosis Symptoms : None Nicole Coley Rn - 07/15/2018 6:34 EDT Anesthesia/Transfusion History Family History of Anesthesia Reaction : No prior transfusion(s) Transfusion History : Prior anesthesia without reaction Family History of Anesthesia Reaction : None Nicole Coley Rn - 07/15/2018 6:45 EDT Functional Assessment Current Daily Living Assistance : Transportation Sensory Deficits : None Current Home Treatments : None Home Equipment : Walker Professional Skilled Services : None Special Services and Community Resources : None Nicole Coley Rn - 07/15/2018 6:52 EDT Living Situation : Home Patient Lives With : Alone Persons Assisting Patient at Home : Child/Children Mobility Assistance Prior to Admission : Partial assistance SANCHEZ Hx Falls Immediate/Within 3 Months : No Nicole Coley Rn - 07/15/2018 6:45 EDT Psychosocial History Do You Have a History of the Following? : Anxiety Currently in Unsafe Situation : No Tried to Harm Yourself in the Past? : No Thoughts of Harming/Killing Yourself : No Nicole Coley Rn - 07/15/2018 6:52 EDT Advance Directive Patient has Advance Directive *Q : Yes, Advance Directive not with the patient Advance Directive Type : Living will Copy Advance Directive Verified/on Chart : Nicole Suazo Rn - 07/15/2018 6:52 EDT Spiritual/Cultural Needs Any Spiritual/Cultural Needs or Requests : No Nicole Coley Rn - 07/15/2018 6:34 EDT Teaching/Learning Assessment Barriers To Learning : None evident Individuals Taught : Patient Readiness to Learn : Cooperative Readiness to Learn : Explanation Learning Style Preferences Patient : None Learning Style Preferences Family : None Nicole Coley Rn - 07/15/2018 6:34 EDT Education Topics, Periop Preadmission Perioperative Education [place] : Verbalizes understanding Infection Control : Verbalizes understanding IV's : Verbalizes understanding NPO Status/Directions : Verbalizes understanding Pain Management : Verbalizes understanding Postoperative Care Preparations : Verbalizes understanding Preprocedure Preparations : Verbalizes understanding Preprocedure Tests/Labs : Verbalizes understanding Nicole Coley Rn - 07/15/2018 6:34 EDT General Info Arrived From : Home Mode of Arrival on Unit : Ambulatory Patient Arrival Date/Time : 07/15/2018 5:40 EDT Legal Guardian : Daughter Want Family/Rep/Phys Notified of Admit : No Emergency Contact #1 : Sera Emergency Contact #1 Emergency Contact #1 Relationship : daughter Emergency Contact #2 : Nae Emergency Contact #2 Emergency Contact #2 Relationship : daughter Information Obtained From : Patient Primary Language : Prydeinig Preferred Communication Mode : Verbal Communication Barrier : None Currently Lactating : No Status : N/A Nicole Coley Rn - 07/15/2018 6:52 EDT Sleep Apnea Risk Assmt Hx of Obstructive Sleep Apnea Diagnosis : No Snore Loudly : Yes Tired, Fatigued, or Sleepy During Day : No Observed Stopping Breathing During Sleep : No Have/Are Being Treated for Hypertension : Yes BMI Greater Than 35 kg/m2 : No Age over 50 Years Old : Yes Neck Circumference Greater Than 40 cm : No Gender Male : No STOP-BANG Sleep Apnea Risk Level Score : 3 Nicole Coley Rn - 07/15/2018 6:52 EDT Jonathan Scale Jonathan Sensory Perception : No impairment Jonathan Moisture : Rarely moist Jonathan Activity : Walks occasionally Jonathan Mobility : Slightly limited Jonathan Nutrition : Adequate Jonathan Friction and Shear : No apparent problem Jonathan Score : 20 Nicole Coley Rn - 07/15/2018 6:34 EDT Oxygen Therapy Oxygen Therapy Mode : Room air Nicole Coley Rn - 07/15/2018 6:34 EDT Pain Assessment Pain Assessment : Initial assessment Pain Scale Goal : 4 Pain Scale Used : 0-10 Scale Location : Hip, right Nicole Coley Rn - 07/15/2018 6:52 EDT Fall Risk Scales ABCs Fall Injury Risk Identification : None SANCHEZ Hx Falls Immediate/Within 3 Months : No Sanchez Secondary Diagnosis : No SANCHEZ Use of Ambulatory Aid : Crutches/Cane/Walker SANCHEZ IV Therapy or IV Access : Yes Get Gait/Transferring : Weak Get Mental Status : Oriented to own ability Sanchez Fall Risk Score : 45 SANCHEZ Fall Scale Risk Level : 25-45 Medium Risk [place] Fall Interventions : Adequate lighting, Bed in low position, Call device within reach, Room free of clutter/spills, Upper side-rails up, Wheels locked Nicole Coley Rn - 07/15/2018 6:34 EDT Fall Risk Education Grid Call light use : Verbalizes understanding Nonskid Footwear Use : Verbalizes understanding Prevention Responsibility Patient : Verbalizes understanding Nicole Coley Rn - 07/15/2018 6:34 EDT Barriers to Learning : None evident Individuals Taught : Patient Readiness to Learn : Cooperative Teaching Method : Explanation Learning Style Preferences Family : None Learning Style Preferences Patient : None Nicole Coley Rn - 07/15/2018 6:34 EDT Education Topics, Day of Surgery DayofSurgery Education Grid Fall Risks : Verbalizes understanding Family Instructions : Verbalizes understanding Infection Control : Verbalizes understanding Infection Risks : Verbalizes understanding IV's : Verbalizes understanding Medication Instructions : Verbalizes understanding Pain Management : Verbalizes understanding Plan of Care : Verbalizes understanding Nicole Coley Rn - 07/15/2018 6:34 EDT Valuables and Belongings Valuables and Belongings : Clothing, Personal devices, Assistive devices Clothing : Common streetwear Clothing Disposition : With family Personal Device Disposition : With family Personal Devices : Glasses Assistive Devices From Home : Walker Assistive Device Disposition : With family Nicole Coley Rn - 07/15/2018 6:52 EDT Pain Scale Intensity : 2 Nicole Coley Rn - 07/15/2018 6:52 EDT Image 4 - Images currently included in the form version of this document have not been included in the text rendition version of the form. Maggi Coma [place] Best Motor Response : Obey commands [place] Best Verbal Response : Oriented [place] Eye Opening Response : Spontaneous Maggi Coma Score : 15 Nicole Coley Rn - 07/15/2018 6:34 EDT Electronically signed by Tatiana Ponce Conversion Vehicle Maintenance Supervisor Cerner at 06/29/2022 1:18 PM CDT documented in this encounter Plan of Treatment Not on file documented as of this encounter Visit Diagnoses Not on filedocumented in this encounter
--- OUTSIDE RECORDS SUMMARY | 2024-08-19 13:32 | XMS_ITS | Encounter Summary ---
Author Organization [employer] Address [address] [place] [address] Care Team Providers Care Director Safety Council Name Role Phone Unavailable Primary Care Provider Unavailabl e Encounter Details Date Type Department Care Team (Late st Contact Info) Description 07/16/2018 Transcribed Document [facility] Family Medicine [facility] [place] [address] ProviderKristel MD [address] [place] [address] Social History Tobacco Use Types Packs/Day Years [...] Conversion Note - Historical ProviderMD - 07/16/2018 10:44 AM CDT Discharge Summary, PT Entered On: 07/16/2018 10:53 EDT Performed On: 07/16/2018 10:44 EDT by NIRU AIKEN PT Discharge Summary Discharge Summary Provider Notified : Nursing Reason for Discharge : Discharged from hospital, All goals met Discharged to, Therapy : Home, with home health Discharge Equipment, PT : Walker Discharge Summary Comment, PT : Patient required min assist for supine to sit, CGA for come to stand at RW and and ambulation up to 100 feet with RW. Patient completed 2/3 goal, discontinued stair goal due to change in DC status. NIRU AIKEN, PT - 07/16/2018 10:44 EDT documented in this encounter Plan of Treatment Not on file documented as of this encounter Visit Diagnoses Not on filedocumented in this encounter
--- OUTSIDE RECORDS SUMMARY | 2024-08-19 13:32 | XMS_ITS | Encounter Summary ---
Author Organization [employer] Address [address] [place] [address] Care Team Providers Care Lining Marker Name Role Phone Unavailable Primary Care Provider Grady peres Encounter Details Date Type Department Care Team (Late st Contact Info) Description 07/16/2018 Transcribed Document [facility] [place] Family Medicine [facility] [place] [address] ProviderKristel MD [address] [place] [address] Social History Tobacco Use Types Packs/Day [...] Conversion Note - Historical ProviderMD - 07/16/2018 5:32 AM CDT Event Note Entered On: 07/16/2018 5:35 EDT Performed On: 07/16/2018 5:32 EDT by Karina Zimmer LPN Event Note Event Date/Time : 07/15/2018 19:00 EDT Event Location : Assigned room Event Details : Nursing assessment additional narrative Description of Event : Patient is refusing to wear CHELLE hose as ordered by . Also will only wear SCDS machine sleeves on lower extrimities very losely. Will continue to monitor. Karina Zimmer LPN - 07/16/2018 5:32 EDT documented in this encounter Plan of Treatment Not on file documented as of this encounter Visit Diagnoses Not on filedocumented in this encounter
--- OUTSIDE RECORDS SUMMARY | 2024-08-19 13:32 | XMS_ITS | Encounter Summary ---
Author Organization [employer] Address [address] [place] [address] Care Team Providers Care Glazing Department Supervisor Name Role Phone Unavailable Primary Care Provider Grady peres Encounter Details Date Type Department Care Team (Late st Contact Info) Description 07/16/2018 Transcribed Document [facility] Family Medicine [facility] [place] [address] ProviderKristel MD [facility] [place] [address] Social History Tobacco Use Types [...] Conversion Note - Historical ProviderMD - 07/16/2018 6:43 AM CDT Event Note Entered On: 07/16/2018 6:48 EDT Performed On: 07/16/2018 6:43 EDT by Karina Zimmer LPN Event Note Event Date/Time : 07/16/2018 6:00 EDT Event Location : Assigned room Event Details : Nursing assessment additional narrative Description of Event : Upon hourly rounding, patient did not have on SCDS. Family member states that she took them off of her because the patient was complaining of pain. SCDS were already very loose to accommodate the patients wants. Will continue to monitor. Karina Zimmer LPN - 07/16/2018 6:43 EDT documented in this encounter Plan of Treatment Not on file documented as of this encounter Visit Diagnoses Not on filedocumented in this encounter
--- OUTSIDE RECORDS SUMMARY | 2024-08-19 13:32 | XMS_ITS | Encounter Summary ---
Author Organization [employer] Address [address] [place] [address] Care Team Providers Care Hotel Service Supervisor Name Role Phone Unavailable Primary Care Provider Unavailabl e Encounter Details Date Type Department Care Team (Late st Contact Info) Description 07/16/2018 Transcribed Document [facility] Radiology [address] [place] [address] Ronal Robert MD [address] [place] [address] [place] [address] Social History Tobacco Use Types Packs/Day Years [...] Conversion Note - Ronal Robert MD - 07/16/2018 1:43 PM EDT Patient: CINDY LABOY Age: 73 years Sex: Female : 1945 Associated Diagnoses: None Author: RONAL ROBERT MD Date of admission 07/15/2018 Date of discharge 07/16/2018 Primary discharge diagnosis #1. Right hip degenerative joint disease and chronic pain status post right total hip arthroplasty #2. Hypertension #3. Hypothyroidism #4. Anxiety #5. Mild postoperative hyponatremia Consultation Orthopedic surgery Dr. Merritt Procedures Right sided total hip arthroplasty Disposition Home with home health Activity As tolerated Diet Low-sodium diet Follow-up Follow-up with primary care physician in 1-2 week Follow-up with orthopedic surgery as instructed Brief hospital stay This patient is a pleasant 73 yo [...] or vomiting after surgery, patient was hemodynamically stable, patient participated with physical therapy, patient cleared by orthopedic surgery to be discharged home with home health, pain medication and anti-cognition per orthopedic surgery, patient will follow-up with orthopedic surgery and primary care physician as instructed, patient was hemodynamically stable at time of discharge. Physical exam Alert and oriented Chest clear to auscultation Abdomen soft nontender Discharge Plan Ortho Discharge Summary Addendum Discharge: [...] discussing with Dr. Merritt first. Discharge Medications ALPRAZolam 0.5 mg oral tablet 0.5 mg [...] tab daily Gabapentin 300mg 1 tab QHS Primary Care Provider RANDAL ALBARADO (REF), -[facility] [employer] Time spent 35 minutes documented in this encounter Plan of Treatment Not on file documented as of this encounter Visit Diagnoses Not on filedocumented in this encounter
--- OUTSIDE RECORDS SUMMARY | 2024-08-19 13:32 | XMS_ITS | Encounter Summary ---
Author Organization [employer] Address [address] [place] [address] Care Team Providers Care Books Binder Name Role Phone Unavailable Primary Care Provider Unavailabl e Encounter Details Date Type Department Care Team (Late st Contact Info) Description 07/16/2018 Transcribed Document [facility] [place] [facility] [place] [address] ProviderKristel MD [facility] [place], [place] [id number] Social History Tobacco Use Types Packs/Day Years [...] Historical ProviderMD - 07/16/2018 9:10 AM CDT Stroke/Warfarin Instructions Entered On: 07/16/2018 9:10 EDT Performed On: 07/16/2018 9:10 EDT by Meche Oshea RN Stroke/Warfarin Instructions Stroke/TIA Discharge Ins : N/A Warfarin Discharge Ins : N/A Meche Oshea RN - 07/16/2018 9:10 EDT documented in this encounter Plan of Treatment Not on file documented as of this encounter Visit Diagnoses Not on filedocumented in this encounter
--- OUTSIDE RECORDS SUMMARY | 2024-08-19 13:32 | XMS_ITS | Encounter Summary ---
Author Organization [employer] Address [address] [place] [address] Care Team Providers Care General House Worker Name Role Phone Unavailable Primary Care Provider Unavailabl e Encounter Details Date Type Department Care Team (Late st Contact Info) Description 07/16/2018 Transcribed Document [facility] [place] [facility] [place] [address] ProviderKristel MD [address] [place] [address] Social History Tobacco Use Types Packs/Day [...] Conversion Note - Historical ProviderMD - 07/16/2018 9:54 AM CDT On Going Discharge Planning Entered On: 07/16/2018 9:54 EDT Performed On: 07/16/2018 9:54 EDT by NAYA MINOR, Care Management-Sanitation Manager Care Management Progress Note Discharge Arrangements : Patient Post-Acute Information Patient Name: CINDY BRAXTON Gender: Female : [birth year] Age: 73 Years No Post-Acute Placement(s) Listed No Post-Acute Service(s) Listed No [place] Referral(s) Listed Discharge Options Discussed with Patient : DME, Home Health Designation of Choice Signed : Yes Patient Offered Choice/Affiliations Explained : Yes List/Info Provided Pt/Fam/Support Person : Home health Were Referrals Sent to Post Acute Providers : Yes NAYA MINOR, Care Management-Sanitation Manager - 07/16/2018 9:54 EDT Electronically signed by Rosario, [facility] Conversion Liner Checker Cerner at 06/29/2022 1:33 PM CDT documented in this encounter Plan of Treatment Not on file documented as of this encounter Visit Diagnoses Not on filedocumented in this encounter
--- OUTSIDE RECORDS SUMMARY | 2024-08-19 13:32 | XMS_ITS | Encounter Summary ---
Author Organization [employer] Address [address] [place] [address] Care Team Providers Care Collection Manager Name Role Phone Unavailable Primary Care Provider Unavailabl e Encounter Details Date Type Department Care Team (Late st Contact Info) Description 07/16/2018 Transcribed Document [facility] [place] [facility] [place] [address] ProviderKristel MD [facility] [place] [address] Social History Tobacco Use Types [...] Historical ProviderMD - 07/16/2018 9:54 AM CDT Final Discharge Planning Entered On: 07/16/2018 9:55 EDT Performed On: 07/16/2018 9:54 EDT by NAYA MINOR Care Management-Lead Generator Final Discharge Planning Discharge Arrangements : Patient Post-Acute Information Patient Name: CINDY BRAXTON Gender: Female : [birth year] Age: 73 Years No Post-Acute Placement(s) Listed No Post-Acute Service(s) Listed No [place] Referral(s) Listed NAYA MINOR Care Management-Lead Generator - 07/16/2018 9:54 EDT [facility] Service : [employer] HE[facility] Organization : PHYSICAL THERAPY MILY, NAYA, Care Management-Lead Generator - 07/16/2018 9:54 EDT Discharge To Care Management : Home Health Services (Related/SOC within 3 days)-06 NAYA MINOR Care Management-Lead Generator - 07/16/2018 9:54 EDT Electronically signed by Rosario [facility] Conversion Corrections Officer Cerner at 06/29/2022 1:31 PM CDT documented in this encounter Plan of Treatment Not on file documented as of this encounter Visit Diagnoses Not on filedocumented in this encounter
--- OUTSIDE RECORDS SUMMARY | 2024-08-19 13:32 | XMS_ITS | Encounter Summary ---
Author Organization [employer] Address [address] [place] [address] Care Team Providers Care Quill Skinner Name Role Phone Unavailable Primary Care Provider Unavailabl e Encounter Details Date Type Department Care Team (Late st Contact Info) Description 07/16/2018 Transcribed Document [facility] [address] [place] [address] Raj Ching MD [address] [place] [address] [address] [place] [id number] Social History Tobacco Use Types Packs/Day Years Used Date Smoking Tobacco: Never Assessed Comments Unknown Sex and Gender Information Value Date Recorded Sex Assigned at Female 09/06/2021 8:30 PM CDT Legal Sex Female 8:30 PM CDT Gender Identity Female 09/06/2021 8:30 PM CDT Sexual Orientation Not on file documented as of this encounter Miscellaneous Notes * Cerner Conversion Note - Raj Ching MD - 07/16/2018 1:15 PM EDT PLEASE MODIFY BEFORE SIGNING CLINICAL DOCUMENTATION CLARIFICATION FORM: Dear : Jose A Ching Date __07/16/2018 Please exercise your independent, professional judgment in responding to the clarification form. Clinical indicators are provided on the bottom of this form for your review Please check appropriate box(s): [ x ] Hyponatremia - please specify etiology if known____post operative [ ] Hypo-osmolarity [ ] No Hyponatremia [ ] Other diagnosis [ ] Unable to determine For continuity of documentation, please document condition throughout progress notes and discharge summary. Thank You. To be completed by CDI/Coding staff for physician review: Present Clinical Indicators - Signs / Symptoms / Labs Results and Location in Medical Record [ xx ] Na level (Please cite specific Na level.) 07/15 Labs: Na 128 ( on admission ) 07/16 Labs: Na 130 Present Risk Factors Results and Location in Medical Record [ xx ] Hypothyrodism 5/6 H&P: Hypothyrodism [xx] Medication 5/6 H&P: Synthroid home medication [xx] NPO for sx 5/6 H&P: NPO for sx Present Treatments Results and Location in Medical Record [ xx ] IV fluids 07/15 Orders: NS @ 100ml [xx ] Series of electrolyte labs 07/15 Orders: Daily Labs CDS/ Signature: __Cadence perez RN DS Phone #: __[phone] This is a permanent part of the Medical Record documented in this encounter Plan of Treatment Not on file documented as of this encounter Visit Diagnoses Not on filedocumented in this encounter
--- OUTSIDE RECORDS SUMMARY | 2024-08-19 13:32 | XMS_ITS | Encounter Summary ---
Author Organization [employer] Address [address] [place] [id number] Care Team Providers Care Research Quality Assurance Analyst Name Role Phone Unavailable Primary Care Provider Unavailabl e Encounter Details Date Type Department Care Team (Late st Contact Info) Description 07/15/2018 Transcribed Document [facility] [place] Family Medicine [facility] [place] [address] ProviderKristel MD [facility] [place] [address] Social History Tobacco Use Types [...] Conversion Note - Historical ProviderMD - 07/15/2018 4:50 AM CDT Admission History, Adult Entered On: 07/15/2018 16:39 EDT Performed On: 07/15/2018 10:15 EDT by Nilda Claros Rn Advance Directive Patient has Advance Directive *Q : Yes, Advance Directive not with the patient Advance Directive Type : Living will Copy Advance Directive Verified/on Chart : No Nilda Claros Rn - 07/15/2018 16:37 EDT Anesthesia/Transfusion History Family History of Anesthesia Reaction : No prior transfusion(s) Transfusion History : Prior anesthesia without reaction Family History of Anesthesia Reaction : None Nilda Claros Rn - 07/15/2018 16:37 EDT Anticipated Discharge Needs Discharge To, Anticipated : Home Nilda Claros Rn - 07/15/2018 16:37 EDT Education Topics, Admission Orientation DCP GENERIC CODE Advance Directives : Verbalizes understanding Allergy Band Applied : Verbalizes understanding Assessment/Vital Signs : Verbalizes understanding Bed Control : Verbalizes understanding Call Light : Verbalizes understanding Confidentiality : Verbalizes understanding Diet/Room Service : Verbalizes understanding Fall Prevention : Verbalizes understanding Hand Hygiene : Verbalizes understanding Healthcare Provider Visit : Verbalizes understanding ID Band Applied : Verbalizes understanding Isolation Precautions : Verbalizes understanding Orientation to Room/Bathroom : Verbalizes understanding Patient Bill of Rights : Verbalizes understanding Patient Rights/Responsibilities : Verbalizes understanding Patient Safety : Verbalizes understanding Personal Privacy Code : Verbalizes understanding Rapid Response Initiated by Patient/Family : Verbalizes understanding Rounding : Verbalizes understanding Siderails use/risks : Verbalizes understanding Skin Precautions : Verbalizes understanding Smoking Policy : Verbalizes understanding Telemetry Monitoring : Verbalizes understanding Television/Phone : Verbalizes understanding Visiting Policy : Verbalizes understanding Nilda Claros Rn - 07/15/2018 16:37 EDT Functional Assessment Living Situation : Home Patient Lives With : Alone Persons Assisting Patient at Home : Child/Children Current Daily Living Assistance : Transportation Mobility Assistance Prior to Admission : Partial assistance Current Home Treatments : None Home Equipment : Walker Professional Skilled Services : None Special Services and Community Resources : None Nilda Claros Rn - 07/15/2018 16:37 EDT General Info Arrived From : Home Mode of Arrival on Unit : Ambulatory Legal Guardian : Daughter Want Family/Rep/Phys Notified of Admit : No Emergency Contact #1 : Sera Emergency Contact #1 Emergency Contact #1 Relationship : daughter Emergency Contact #2 : Nae Emergency Contact #2 Emergency Contact #2 Relationship : daughter Information Obtained From : Patient Primary Language : Irish Preferred Communication Mode : Verbal Communication Barrier : None Currently Lactating : No Status : N/A Nilda Claros Rn - 07/15/2018 16:37 EDT Fall Risk Scales ABCs Fall Injury Risk Identification : Bones, Coagulation, Surgery ABC Fall Injury Risk : Moderate to high injury risk Injury Moderate to High Risk Interventions : Bed alarm on, Chair alarm on, Specialty low bed, Transport methods appropriate to patient, Wrist band (fall risk) on per policy SANCHEZ Hx Falls Immediate/Within 3 Months : No Sanchez Secondary Diagnosis : Yes SANCHEZ Use of Ambulatory Aid : Crutches/Cane/Walker SANCHEZ IV Therapy or IV Access : Yes Sanchez Gait/Transferring : Impaired Sanchez Mental Status : Oriented to own ability Sanchez Fall Risk Score : 70 SANCHEZ Fall Scale Risk Level : 46 or > High Risk Harvey Fall Interventions : Adequate lighting, Bed in low position, Call device within reach, Fall prevention handout/education per facility policy, Frequent orientation to call device, Frequent orientation to surroundings, Hourly comfort/safety rounds, Non-slip footwear, Personal items within reach, Reinforced to call for assistance before getting out of bed, Room free of clutter/spills, Upper side-rails up, Wheels locked, Wires/Cords secured Fall Moderate to High Risk Interventions : Bed alarm on, Chair alarm on, Patient room close to nurses station, Transport methods appropriate to patient, Wrist band (fall risk) on Nilda Claros Rn - 07/15/2018 16:37 EDT Fall Risk Education Grid Alarms : Verbalizes understanding Assistive Equipment Use : Verbalizes understanding Bed Height/Stabilization : Verbalizes understanding Call light use : Verbalizes understanding Door Open : Verbalizes understanding Environmental Management : Verbalizes understanding Eyeglasses Use : Verbalizes understanding Fall Community Resources : Verbalizes understanding Fall Contract/Letter : Verbalizes understanding Fall Prevention in the Home : Verbalizes understanding Fall Prevention Protocol : Verbalizes understanding Hearing Aid Use : Verbalizes understanding Home Risk Assessment : Verbalizes understanding Need Constant Observation : Verbalizes understanding Night Light Use : Verbalizes understanding Nonskid Footwear Use : Verbalizes understanding Notification of Staff When Leaving : Verbalizes understanding Orthostatic Hypotension Precautions : Verbalizes understanding Personal Article Availability : Verbalizes understanding Prevention Responsibility Family : Verbalizes understanding Prevention Responsibility Patient : Verbalizes understanding Risk Alert Methods : Verbalizes understanding Risk Factors : Verbalizes understanding Safety Aids : Verbalizes understanding Siderails use/risks : Verbalizes understanding Special Assistive Devices : Verbalizes understanding Staff Responsiveness : Verbalizes understanding Symptom Identification & Action Plan *Q : Verbalizes understanding Symptom Reporting : Verbalizes understanding Toileting Schedule : Verbalizes understanding Transfer/Mobility Techniques : Verbalizes understanding Urinal/Bedpan Availability : Verbalizes understanding Wait for Assistance : Verbalizes understanding Wheelchair Safety : Verbalizes understanding Nilda Claros Rn - 07/15/2018 16:37 EDT Barriers to Learning : None evident Individuals Taught : Patient Readiness to Learn : Cooperative Baseline Knowledge of Topic : Limited Teaching Method : Explanation Learning Style Preferences Family : Verbal explanation Learning Style Preferences Patient : Demonstration, Verbal explanation Teaching Evaluation : Verbalizes understanding Fall Risk Scale Calc Temp : 0 Nilda Claros Rn - 07/15/2018 16:37 EDT Health Histories Smoking Status : 10 or more cigarettes (1/2 pack or more)/day in last 30 days Smokeless Tobacco Status : Never Desires Tobacco Cessation Medication : No Reason for No Tobacco Cessation Medication : Refuses FDA approved medications Implant/Device Type, Party Plan Sales Agent and Model : left hip replacement, poss. gallbladder clamps Nilda Claros Rn - 07/15/2018 16:39 EDT Social History (As Of: 07/15/2018 16:41:27 EDT) Tobacco: 10 or more cigarettes (1/2 pack or more)/day in last 30 days Smoking Status. Never Smokeless Tobacco Status. (Last Updated: 06/28/2018 10:15:29 EDT by CLARISSA GUERRERO RN) Alcohol: Alcohol Use History No. (Last Updated: 06/28/2018 10:15:29 EDT by CLARISSA GUERRERO RN) Substance Abuse: Drug Use Hx: No. (Last Updated: 06/28/2018 10:15:29 EDT by CLARISSA GUERRERO RN) Height and Weight, Clinical Dosing Height Source : Stated Height Entry Format : [place] Height, Feet : 5 ft(Converted to: 152 cm, 60 Inch) Height, Inches : 1 Inch(Converted to: 0 ft 1 Inch, 2.54 cm) Clinical Height : 154.94 cm Weight Source : Standing scale Weight Entry Format : [place] Clinical Dosing Weight : 63.18 kg Weight, Pounds : 139 lb Body Surface Area (BSA) : 1.62 m2 Body Mass Index : 26.3 kg/m2 (HI) [place] Body Weight : 47 kg Nilda Claros Rn - 07/15/2018 16:39 EDT Infectious Disease History Infectious Disease History : Chicken pox/Shingles, Measles, Mumps Active Surveillance Screen Assessment : Patient does not meet any of above criteria Active Surveillance Screen Negative : Yes Fever/Chills Last 48 Hours : No Travel To Regions with Travel Advisories : No Travel Outside [place] Within Last 30 Days : No Contact With Traveler to Advisory Region : No Tuberculosis Symptoms : None Nilda Claros Rn - 07/15/2018 16:39 EDT Influenza Vaccine Asmt, Adult Previous Vaccines from Immunization Schedule : No qualifying data available. Influenza Immunization, Current Season : Yes Influenza Immunization Date : 11/15/2017 EDT Nilda Claros Rn - 07/15/2018 16:39 EDT Pneumococcal Vaccine Previous Vaccines from Immunization Schedule : No qualifying data available. Pneumonia Immunization Received : Yes Pneumonia Immunization Date : 12/15/2016 EDT Nilda Claros Rn - 07/15/2018 16:39 EDT Order Details Transport Mode Order Detail : Ambulatory Isolation Precautions Order Detail : Standard Precautions Order Detail : N/A IV Order Detail : 1 Oxygen Order Detail : 1 Nurse Collect Order Detail : 0 Lift/Transfer : Independent Central Line Order Detail : No Room Service : Appropriate Arterial Line : No Nilda Claros Rn - 07/15/2018 16:39 EDT Nutrition History Feeding Ability : Independent Adaptive Feeding Equipment : None Adaptive Feeding Equipment : Regular Eating Poorly Due to Decreased Appetite : No Unplanned Weight Loss in Past 3-6 Months : No Malnutrition Screening Tool Total(mal) : 0 Malnutrition Screening Tool Risk Level : Patient not at risk Nilda Claros Rn - 07/15/2018 16:39 EDT Psychosocial History Do You Have a History of the Following? : Anxiety Currently in Unsafe Situation : No Tried to Harm Yourself in the Past? : No Thoughts of Harming/Killing Yourself : No Nilda Claros Rn - 07/15/2018 16:39 EDT Sleep Apnea Risk Assmt Hx of [...] Sleep Apnea Risk Level Score : 3 Nilda Claros Rn - 07/15/2018 16:39 EDT Spiritual/Cultural Needs Any Spiritual/Cultural Needs or Requests : No Nilda Claros Rn - 07/15/2018 16:39 EDT Valuables and Belongings Valuables and Belongings : Clothing, Personal devices, Assistive devices Clothing : Common streetwear Clothing Disposition : With family Personal Device Disposition : With family Personal Devices : Glasses Assistive Devices From Home : Walker Assistive Device Disposition : With family Nilda Claros Rn - 07/15/2018 16:39 EDT Electronically signed by [facility] Conversion Corporate Buyer Cerner at 06/29/2022 1:19 PM CDT documented in this encounter Plan of Treatment Not on file documented as of this encounter Visit Diagnoses Not on filedocumented in this encounter
--- OUTSIDE RECORDS SUMMARY | 2024-08-19 13:32 | XMS_ITS | Encounter Summary ---
Author Organization [employer] Address [address] [place] [id number] Care Team Providers Care Entry Level Management Name Role Phone Unavailable Primary Care Provider Unavailabl e Encounter Details Date Type Department Care Team (Late st Contact Info) Description 07/16/2018 Transcribed Document [facility] [place] Family Medicine [facility] [place] [address] ProviderKristel MD [address] [place] [id number] Social History Tobacco Use Types Packs/Day [...] Conversion Note - Historical ProviderMD - 07/16/2018 7:13 AM CDT Patient: CINDY LABOY Age: 73 Years Sex: Female : 1945 Assessment/Plan 1. WBAT OPERATIVE LEG 2. OK FOR DISCHARGE HOME WITH 3. PT SET UP, STANDARD POST OP ATHA ORDERS VTE Prophylaxis - Medical Sequential Compression Device Start: 07/15/18 10:15:00 EDT, Bilateral, Length: Knee High, Continuous Order (DEREK DURAN) Subjective Patient is s/p right ATHA. Pain is well controlled. Having low back discomfort likely related to positional changes and decreased ambulation Vital Signs Vitals Signs (last 24 hrs) Last Charted Minimum Maximum Temp 98.4 (JULY 16 05:27) 97.0 (JULY 15 09:21) 98.3 (JULY 15 20:00) Apical HR 72 (JULY 15 17:14) 72 (JULY 15 17:14) 72 (JULY 15 17:14) Mon HR 75 (JULY 16 05:27) 60 (JULY 15 10:00) 116 (JULY 15 20:00) Resp Rate 16 (JULY 16 05:00) 16 (JULY 15 09:21) 16 (JULY 15 09:21) SBP 117 (JULY 16:27) 107 (JULY 15:25) H 144 (JULY 15 22:00) DBP L 58 (JULY 16:) L 47 (JULY 15:21) 69 (JULY 15 22:00) MAP 69 (JULY 16:) 69 (JULY 16 05:27) 89 (JULY 15 22:00) SpO2 L 93 (JULY 16:) L 90 (JULY 15 09:35) 100 (JULY 15 15:52) Oxygen Settings (Last) Oxygen Therapy Mode: Room air (07/16/18 05:27:00 EDT) Oxygen Flow Rate: 2 Liter/Min (07/15/18 10:10:00 EDT) Intake & Output Totals Last 24 Hours (7a-7a) Input Total: 2335.8333 mL Output Total: 290 mL Balance: 2045.8333 mL Physical Exam Dressing clean, dry and intact N/V intact distally Gross motor function for the TA, EHL, gastroc and soleus intact No sign of DVT Medications ALPRAZolam, 0.5 mg= 1 Tab, Oral, QID aspirin, 81 mg= 1 Tab, Oral, BID Benadryl, 12.5 mg= 0.5 Tab, Oral, At Bedtime, PRN Benadryl, 25 mg= 1 Tab, Oral, Q4H, PRN Colace, 100 mg= 1 Cap, Oral, BID Dulcolax Laxative, 10 mg= 1 Supp, Rectal, 1-Time, PRN metoclopramide, 5 mg= 1 mL, IV Push, Q4H, PRN Metoprolol Succinate ER, 50 mg= 1 Tab, Oral, BID multivitamin, 1 Tab, Oral, Daily naloxone, 0.1 mg= 0.25 mL, IV Push, Q5Min, PRN oxyCODONE, 10 mg= 2 Tab, Oral, Q4H, PRN oxyCODONE, 5 mg= 1 Tab, Oral, Q4H, PRN Protonix, 40 mg= 1 Tab, Oral, Daily senna, 8.6 mg= 1 Tab, Oral, At Bedtime, PRN Senokot S, 2 Tab, Oral, At Bedtime Sodium Chloride 0.9% intravenous solution 1,000 mL, 1000 mL, IntraVENous Synthroid, 150 mcg= 2 Tab, Oral, Daily traMADol, 50 mg= 1 Tab, Oral, Q6H While Awake Tylenol, 1000 mg= 2 Tab, Oral, Q6HInt Vitamin B12, 2500 mcg= 2.5 Tab, SubLINgual, Daily Vitamin D3, 1000 Units= 1 Tab, Oral, Daily Zinc (as gluconate ), 50 mg, Oral, Daily Zofran, 4 mg= 2 mL, IV Push, Q8H, PRN Lab Results Test Name Test Result Date/Time Sodium Level 130 mmol/L (Low) 07/16/2018 04:02 EDT Sodium Level 128 mmol/L (Low) 07/15/2018 12:51 EDT Potassium Level 3.6 mmol/L 07/16/2018 04:02 EDT Potassium Level 3.7 mmol/L 07/15/2018 12:51 EDT Chloride Level 93 mmol/L (Low) 07/16/2018 04:02 EDT Chloride Level 91 mmol/L (Low) 07/15/2018 12:51 EDT Carbon Dioxide Level 29 mmol/L 07/16/2018 04:02 EDT Carbon Dioxide Level 27 mmol/L 07/15/2018 12:51 EDT Anion Gap 12 07/16/2018 04:02 EDT Anion Gap 14 07/15/2018 12:51 EDT Glucose Level 110 mg/dL (High) 07/16/2018 04:02 EDT Glucose Level 167 mg/dL (High) 07/15/2018 12:51 EDT Blood Urea Nitrogen 8 mg/dL 07/16/2018 04:02 EDT Blood Urea Nitrogen 11 mg/dL 07/15/2018 12:51 EDT Creatinine Level 0.47 mg/dL (Low) 07/16/2018 04:02 EDT Creatinine Level 0.66 mg/dL 07/15/2018 12:51 EDT eGFR >60 mL/min/1.73m2 07/16/2018 04:02 EDT eGFR >60 mL/min/1.73m2 07/15/2018 12:51 EDT eGFR NonAfrican >60 mL/min/1.73m2 07/16/2018 04:02 EDT eGFR NonAfrican >60 mL/min/1.73m2 07/15/2018 12:51 EDT Bun/Creatinine 17.0 07/16/2018 04:02 EDT Bun/Creatinine 16.7 07/15/2018 12:51 EDT Calcium Level 8.7 mg/dL 07/16/2018 04:02 EDT Calcium Level 8.4 mg/dL (Low) 07/15/2018 12:51 EDT Hgb 9.1 Gram/dL (Low) 07/16/2018 04:02 EDT Hgb 11.9 Gram/dL 07/15/2018 09:23 EDT Hct 26.5 % (Low) 07/16/2018 04:02 EDT Hct 35.1 % 07/15/2018 09:23 EDT documented in this encounter Plan of Treatment Not on file documented as of this encounter Visit Diagnoses Not on filedocumented in this encounter
--- OUTSIDE RECORDS SUMMARY | 2024-08-19 13:32 | XMS_ITS | Encounter Summary ---
Author Organization [employer] [email or web address] Address [address] [place] [address] Care Team Providers Care Hand Patcher Name Role Phone Unavailable Primary Care Provider Unavailabl e Encounter Details Date Type Department Care Team (Late st Contact Info) Description 06/28/2018 Transcribed Document [facility] [place] [facility] [place] [address] ProviderKristel MD [address] [place] [address] Social History Tobacco Use Types Packs/Day [...] [employer] Conversion Note - Historical ProviderMD - 06/28/2018 10:15 AM CDT PAT Adult Entered On: 06/28/2018 10:20 EDT Performed On: 06/28/2018 10:15 EDT by CLARISSA GUERRERO RN Vital Measurements Temperature Source : Temporal artery scanning Temperature Mode : Fahrenheit Temperature, Fahrenheit : 97.6 Deg F Clinical Temperature, C : 36.4 Deg C Peripheral Pulse Rate : 62 bpm Respiratory Rate : 18 Breaths/Min Systolic Blood Pressure : 148 mmHg (HI) Diastolic Blood Pressure : 69 mmHg Oxygen Saturation : 96 % Oxygen Therapy Mode : Room air CLARISSA GUERRERO RN - 06/28/2018 10:15 EDT Height and Weight, Clinical Dosing Height Source : Stated Height Entry Format : [place] Height, Feet : 5 ft(Converted to: 152 cm, 60 Inch) Height, Inches : 1 Inch(Converted to: 0 ft 1 Inch, 2.54 cm) Clinical Height : 154.94 cm Weight Source : Standing scale Weight Entry Format : [place] Clinical Dosing Weight : 65 kg Weight, Pounds : 143 lb Body Surface Area (BSA) : 1.64 m2 Body Mass Index : 27.1 kg/m2 (HI) [place] Body Weight : 47 kg CLARISSA GUERRERO RN - 06/28/2018 10:15 EDT Health Histories Smoking Status : 10 or more cigarettes (1/2 pack or more)/day in last 30 days Smokeless Tobacco Status : Never Desires Tobacco Cessation Medication : No Reason for No Tobacco Cessation Medication : Refuses FDA approved medications CLARISSA GUERRERO RN - 06/28/2018 10:15 EDT Social History (As Of: 06/28/2018 10:20:21 EDT) Tobacco: 10 or more cigarettes (1/2 pack or more)/day in last 30 days Smoking Status. Never Smokeless Tobacco Status. (Last Updated: 06/28/2018 10:15:29 EDT by CLARISSA GUERRERO, RN) Alcohol: Alcohol Use History No. (Last [...] Region : No Tuberculosis Symptoms : None CLARISSA GUERRERO RN - 06/28/2018 10:15 EDT Anesthesia/Transfusion History Family History of Anesthesia Reaction : No prior transfusion(s) Transfusion History : Prior anesthesia without reaction Family History of Anesthesia Reaction : None CLARISSA GUERRERO RN - 06/28/2018 10:15 EDT Functional Assessment Functional ADL Evaluation Index EBN Bathing : Independent (2) Dressing : Independent (2) Toileting : Independent (2) Transferring Bed or Chair : Independent (2) Continence : Independent (2) Feeding : Independent (2) CLARISSA GUERRERO RN - 06/28/2018 10:15 EDT ADL Index Score : 12 CLARISSA GUERRERO RN - 06/28/2018 10:15 EDT Advance Directive Patient has Advance Directive *Q : Yes, Advance Directive not with the patient Advance Directive Type : Living will Copy Advance Directive Verified/on Chart : No CLARISSA GUERRERO RN - 06/28/2018 10:15 EDT Spiritual/Cultural Needs Any Spiritual/Cultural Needs or Requests : No CLARISSA GUERRERO RN - 06/28/2018 10:15 EDT Psychosocial History Do You Have a History of the Following? : Anxiety Currently in Unsafe Situation : No Tried to Harm Yourself in the Past? : No Thoughts of Harming/Killing Yourself : No CLARISSA GUERRERO RN - 06/28/2018 10:15 EDT Teaching/Learning Assessment Barriers To Learning : None evident Individuals Taught : Patient Readiness to Learn : Cooperative Readiness to Learn : Explanation CLARISSA GUERRERO RN - 06/28/2018 10:15 EDT Education Topics, Periop Preadmission Perioperative Education Grid Arrival Time/Place : Verbalizes understanding CHG Preoperative Bathing/Cloths : Verbalizes understanding Infection Control : Verbalizes understanding NPO Status/Directions : Verbalizes understanding Preprocedure Preparations : Verbalizes understanding Preprocedure Tests/Labs : Verbalizes understanding Remove Body Piercings : Verbalizes understanding Responsible Adult : Verbalizes understanding Take/Hold Medications Pre-Procedure : Verbalizes understanding CLARISSA GUERRERO RN - 06/28/2018 10:15 EDT General Info Want Family/Rep/Phys Notified of Admit : No Emergency Contact #1 : Sera Emergency Contact #1 Emergency Contact #1 Relationship : daughter Emergency Contact #2 : Nae Emergency Contact #2 Emergency Contact #2 Relationship : daughter Primary Language : Kiswahili Communication Barrier : None CLARISSA GUERRERO RN - 06/28/2018 10:15 EDT Jonathan Scale Jonathan Sensory Perception : No impairment Jonathan Moisture : Rarely moist Jonathan Activity : Walks occasionally Jonathan Mobility : Slightly limited Jonathan Nutrition : Adequate Jonathan Friction and Shear : No apparent problem Jonathan Score : 20 CLARISSA GUERRERO RN - 06/28/2018 10:15 EDT Sleep Apnea Risk Assmt Hx of [...] Sleep Apnea Risk Level Score : 3 CLARISSA GUERRERO RN - 06/28/2018 10:15 EDT documented in this encounter Plan of Treatment Not on file documented as of this encounter Visit Diagnoses Not on filedocumented in this encounter
--- OUTSIDE RECORDS SUMMARY | 2024-08-19 13:32 | XMS_ITS | Encounter Summary ---
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 Name Role Phone Unavailable Primary Care Provider Unavailabl e Encounter Details Date Type Department Care Team (Late st Contact Info) Description 07/16/2018 Transcribed Document [facility] [place] Family Medicine [facility] [place] [address] ProviderKristel MD [facility] [place] [address] Social History Tobacco Use Types [...] Conversion Note - Kristel ProviderMD - 07/16/2018 12:02 [place] [address] CINDY LABOY :1945 Visit Time:07/15/2018 Your Visit Summary Your Care Team Admitting Physician - RONAL ROBERT MD Attending Physician - DEREK DURAN MD-ORT Primary Care Physician - RANDAL ALBARADO (REF)MD-[facility] Referring Physician - DEREK DURAN MD-ORT Your Diagnosis S/P total hip arthroplasty Unilateral primary osteoarthritis, right hip, Unilateral primary osteoarthritis, right hip These Are Your Goals I want to mow the yard. Interventions: Work with PT Discharge Vitals Heart Rate 72 Blood Pressure 105/62 What to do next Instructions From Your Care Team [facility] FOR [facility]ICAL [facility], PT WILL NEED TO INFORM HOME HEALTH DIRECTLY OF WHEN SHE WILL CHANGE 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 TO HER OWN HOME [phone] PT HAS ALL NEEDED DME Follow-Up Appointments Follow Up with JAIDEN LEBRON PA-C When 08/26/2018 10:00 AM EDT Comments Appointment has been made Where: [address] [facility] [address] [place] [address]- Follow Up with Follow up with primary care provider When Within 1 week Medications What How Much When Instructions Next Dose aspirin (aspirin 81 mg oral delayed release tablet) 1 Tablet(s) Oral Two Times A Day Printed Prescription docusate (Colace 100 mg oral capsule) 1 Capsule(s) Oral Two Times A Day oxyCODONE (oxyCODONE 5 mg oral tablet) 1 Tablet(s) Oral Every 4 Hours as needed for Pain (Moderate 4-6) traMADol (traMADol 50 mg oral tablet) 1 Tablet(s) Oral Every 6 Hours While Awake ALPRAZolam (ALPRAZolam 0.5 mg oral tablet) 1 Tablet(s) Oral Four Times A Day cholecalciferol (Vitamin D3) 1,000 International Units Oral Every Day cyanocobalamin (Vitamin B12) 2,500 Microgram(s) SubLINgual Every Day hydrochlorothiazide-triamterene (hydroCHLOROthiazide-triamterene 25 mg-37.5 mg oral tablet) 0.5 Tablet(s) Oral Every Day hold for 3 days levothyroxine 150 Microgram(s) Oral Every Day metoprolol (Metoprolol Tartrate 50 mg oral tablet) 1 Tablet(s) Oral Two Times A Day zinc gluconate (zinc (as gluconate) 50 mg oral tablet) 1 Tablet(s) Oral Every Day Take your medications faithfully. Do NOT skip medication. Do NOT stop taking medications without the direction of a physician. Carry a list of your medications with you at all times, and take this medication list with you to your first follow up visit. Report any side effects. Avoid herbal remedies unless discussed with your physician. As part of your treatment plan, your physician may have prescribed a limited course of a controlled substance. This medication may be given to help people with moderate or severe pain or for other medical conditions, but there are risks involved with treatment. Common side effects may include nausea, constipation, drowsiness, sweating, itching, dry mouth, and rash. More serious side effects may include cognitive and motor impairment, like problems with thinking, concentrating, alertness, and movement (e.g. slowed reflexes), and driving and operating heavy machinery can be dangerous. It is important for you to talk to your physician if you have these side effects or questions. These controlled substances can produce physical dependence and be habit-forming if taken for an extended period of time, which means that the body has gotten used to them and may experience withdrawal symptoms if they are abruptly stopped. Withdrawal symptoms can include runny nose, sweating, goose bumps, diarrhea, abdominal cramping, rapid heartbeat, difficulty sleeping, and nervousness. Please dispose of unused and medications per your retail pharmacy guidance. Allergies Decongestant (Heart rate increase) Latex diclofenac (Facial swelling) doxycycline (Yeast infection) ketoprofen Immunizations This Visit No Immunizations Found Education Materials What to expect after the Procedure: After the procedure, it is common to have: ??? Pain and swelling. ??? A small amount of blood or clear fluid coming from your incision for up to 7 days ??? It is normal to have a moderate amount of bleeding from the site of the drain that was pulled on the morning after surgery. You can hold pressure on the area for 3-5 minutes and cover with a bandage as needed. Diet: ??? Resume usual diet ??? No alcoholic beverages while taking pain medication ??? Drink 8-10 glasses of water a day to prevent constipation from pain medication ??? Increase fiber to help prevent constipation. Straining can cause increased pressure and pain in your incision area ??? Increase protein to promote healing Driving: ??? Do not drive until your health care provider approves. Ask your health care provider when it is safe to drive if you have an immobilizer on your knee. ??? Do not drive or operate heavy machinery while taking prescription pain medicine. ??? Do not drive for 24 hours if you received a sedative. Activity: ??? Do not lift anything that is heavier than 10 lb (4.5 kg) until your health care provider approves. ??? No strenuous activity ??? Avoid high-impact activities, including running, jumping rope, and jumping jacks. ??? Avoid sitting for a long time without moving. Get up and move around at least every few hours. ??? Keep legs elevated while seated and place surgery leg on 2-3 pillows, this will decrease swelling ??? Continue using walker until cleared by physical therapy Bathing: ??? Do not take baths, swim, or use a hot tub for one month after surgery. ??? May shower on the third day after surgery by covering incision with Glad Brand Press and Seal saran wrap. After showering, dry off completely BEFORE removing saran wrap. ??? Use Press and Seal saran wrap to shower for one month after surgery ??? You must be seated to shower until you are no longer using the walker Other: ??? Leave dressing in place for 7 days then remove and leave open to air ??? Continue Aspirin 81mg twice a day for 45 days to help prevent blood clots ??? Wear compression stockings on both legs for 6 weeks, only remove to shower and inspect skin then put back on ??? Use ice therapy for 20-30 minutes at a time and leave off for 20-30 minutes at a time. Always keep a towel or cloth between the ice pack and your skin ??? Continue to use Incentive Spirometer 10 times an hour while awake for one month to help prevent pneumonia Contact a health care provider if: ??? You have more redness, swelling, or pain around your incision. ??? You have more fluid or blood coming from your incision. ??? Your incision or drain site feels warm to the touch. ??? You have pus or a bad smell coming from your incision. ??? You have a fever. ??? Your incision breaks open after your health care provider removes your sutures, skin glue, or adhesive tape. ??? Your prosthesis feels loose. ??? You have knee pain that does not go away. DVT: Blood Clot Blood clots are a common risk after an orthopedic surgery Symptoms: ??? Swelling of your leg or arm, especially if one side is much worse. ??? Warmth and redness of your leg or arm, especially if one side is much worse. ??? Pain in your arm or leg. If the clot is in your leg, symptoms may be more noticeable or worse when you stand or walk. ??? A feeling of pins and needles, if the clot is in the arm. The symptoms of a DVT that has traveled to the lungs (pulmonary embolism, PE) usually start suddenly and include: ??? Shortness of breath while active or at rest. ??? Coughing or coughing up blood or blood-tinged mucus. ??? Chest pain that is often worse with deep breaths. ??? Rapid or irregular heartbeat. ??? Feeling light-headed or dizzy. ??? Fainting. ??? Feeling anxious. ??? Sweating. There may also be pain and swelling in a leg if that is where the blood clot started. How is this prevented? Exercise regularly. For at least 30 minutes every day, engage in: -Activity that involves moving your arms and legs. -Activity that encourages good blood flow through your body by increasing your heart rate. ??? Exercise your arms and legs every hour during long-distance travel (over 4 hours). ??? Drink plenty of water and avoid drinking alcohol while traveling. ??? Avoid sitting or lying in bed for long periods of time without moving your legs. ??? Maintain a weight that is appropriate for your height. Ask your health care provider what weight is healthy for you. ??? If you are a woman who is over 35 years of age, avoid unnecessary use of medicines that contain estrogen. These include control pills. ??? Do not smoke, especially if you take estrogen medicines. If you need help quitting, ask your health care provider. ??? Wear compression stockings (if told by your health care provider) to help prevent blood clots from forming. High Fiber/High Protein Diet High fiber foods: To prevent constipation Grains Whole-grain breads. Multigrain cereal. Oats and oatmeal. Brown rice. Barley. Bulgur wheat. Millet. Bran muffins. Popcorn. [place] wafer crackers. Vegetables Sweet potatoes. Spinach. Kale. Artichokes. Cabbage. Broccoli. Green peas. Carrots. Squash. Fruits Berries. Pears. Apples. Oranges. Avocados. Prunes and raisins. Dried figs. Meats and Other Protein Sources [place], kidney, [place], and soy beans. Split peas. Lentils. Nuts and seeds. Dairy Fiber-fortified yogurt. Beverages Fiber-fortified soy milk. Fiber-fortified orange juice. Other Fiber bars. High-protein foods: To promote healing High-protein foods contain 4 grams (4 g) or more of protein per serving. They include: ??? Beef, ground sirloin (cooked) ??? 3 oz have 24 g of protein. ??? Cheese (hard) ??? 1 oz has 7 g of protein. ??? Chicken breast, boneless and skinless (cooked) ??? 3 oz have 13.4 g of protein. ??? Cottage cheese ??? 1/2 cup has 13.4 g of protein. ??? Egg ??? 1 egg has 6 g of protein. ??? Fish, filet (cooked) ??? 1 oz has 6???7 g of protein. ??? Garbanzo beans (canned or cooked) ??? 1/2 cup has 6???7 g of protein. ??? Kidney beans (canned or cooked) ??? 1/2 cup has 6???7 g of protein. ??? Gómez (cooked) ??? 3 oz has 24 g of protein. ??? Milk ??? 1 cup (8 oz) has 8 g of protein. ??? Nuts (peanuts, pistachios, almonds) ??? 1 oz has 6 g of protein. ??? Peanut butter ??? 1 oz has 7???8 g of protein. ??? Pork tenderloin (cooked) ??? 3 oz has 18.4 g of protein. ??? Pumpkin seeds ??? 1 oz has 8.5 g of protein. ??? Soybeans (roasted) ??? 1 oz has 8 g of protein. ??? Soybeans (cooked) ??? 1/2 cup has 11 g of protein. ??? Soy milk ??? 1 cup (8 oz) has 5???10 g of protein. ??? Soy or vegetable gabriel ??? 1 gabriel has 11 g of protein. ??? [place] seeds ??? 1 oz has 5.5 g of protein. ??? Tofu (firm) ??? 1/2 cup has 20 g of protein. ??? Tuna (canned in water) ??? 3 oz has 20 g of protein. ??? Yogurt ??? 6 oz has 8 g of protein. Fall Prevention ??? Use night lights. ??? Install grab bars by the toilet and in the tub and shower. Do not use towel bars as grab bars. ??? Use non-skid mats or decals on the floor of the tub or shower. ??? If you need to sit down while you are in the shower, use a plastic, non-slip stool. ??? Keep the floor dry. Immediately clean up any water that spills on the floor. ??? Remove soap buildup in the tub or shower on a regular basis. ??? Remove throw rugs and other tripping hazards from the floor. ??? Place frequently used items in [id number] places ??? Keep electrical cables out of the way. ??? Do not leave any items on the stairs. ??? Make sure that there are handrails on both sides of the stairs. Fix handrails that are broken or loose. Make sure that handrails are as long as the stairways. ??? Check any carpeting to make sure that it is firmly attached to the stairs. Fix any carpet that is loose or worn. ??? Avoid having throw rugs at the top or bottom of stairways, or secure the rugs with carpet tape to prevent them from moving. ??? Wear closed-toe shoes that fit well and support your feet. Wear shoes that have rubber soles or low heels. ??? Use mobility aids as needed, such as canes, walkers, scooters, and crutches. ??? Turn on lights if it is dark. Replace any light bulbs that burn out. ??? Set up furniture so that there are clear paths. Keep the furniture in the same spot. ??? Be aware of any and all pets. ??? Review your medicines with your healthcare provider. Some medicines can cause dizziness or changes in blood pressure, which increase your risk of falling. Hand Washing You should wash your hands whenever you think they are dirty. You should also wash your hands: ??? After: ??? Working or playing outside. ??? Touching an animal or its toys or leash. ??? Handling livestock. ??? Using the bathroom. ??? Using household hospital monitor or toxic chemicals. ??? Touching or taking out the garbage. ??? Touching anything dirty around your home. ??? Handling soiled clothes or rags. ??? Taking care of a sick child. This includes touching used tissues, toys, and clothes. ??? Sneezing, coughing, or blowing your nose. ??? Using public transportation. ??? Shaking hands. ??? Using a phone, including your mobile phone. ??? Touching money. ??? Before and after: ??? Preparing food. ??? Feeding a baby or young child. ??? Eating. ??? Visiting or taking care of someone who is sick. ??? Changing a diaper. ??? Changing a bandage (dressing) or taking care of an injury or wound. ??? Giving or taking medicine. If soap and [...] 4. Repeat the process for each step. ??? Always keep both feet within the width of the walker's legs or wheels. ??? When using your walker, you should not feel like you need to lean forward or to the side to keep your hands on the handgrips. ??? Make sure you are following any weight-bearing instructions that your health care provider has given you. ??? Be careful not to let the walker get too far ahead of you as you walk. ??? If your walker does not glide well [...] 5. Step down with your stronger leg. Emergency Awareness and Preventative Care STROKE is an EMERGENCY Every Minute Counts Act FAST and Check for these signs: FACE Does the face look uneven? ARM Does one arm drift down? SPEECH Does their speech sound strange? TIME Call at any sign of stroke Stroke Risk Factors Atrial Fibrillation (irregular heartbeat) Diabetes Family history of stroke Heart Disease Heavy alcohol use High Blood Pressure High Cholesterol Physical inactivity and obesity Smoking Cigarette Smoking The facts are clear, cigarette smoking will shorten your life. Smoking can cause many illnesses along the way. As a healthcare provider, we recommend that you stop smoking. Assistance with quitting is available by contacting 6-871-VFRU-NOW. This is a free resource providing counseling, support, and referral. Or you may contact your personal physician. National Suicide Prevention Lifeline: The National Suicide Prevention Lifeline is a national network of local crisis centers that provides free and confidential emotional support to people in suicidal crisis or emotional distress 24 hours a day, 7 days a week. Don't Wait! Stop a Heart Attack Before it Starts What is a heart attack? A heart attack is damage or to a part of the heart from severely decreased or lack of blood flow to the heart. Over time, arteries can become narrow from the buildup of fat and cholesterol, which is called plaque. The plaque can rupture causing a blood clot to form. When the blood clot forms, the artery can become severely narrowed or completely blocked, causing a heart attack. Heart attack is the leading cause of in the [place]. 85% of muscle damage occurs within the first 2 hours. Delay in the recognition of heart attack symptoms increases the chances of . Know the early symptoms of a heart attack: Nausea Feeling of fullness in chest Jaw Pain Pain that travels down one or both arms Fatigue/being tired Anxiety Back Pain Chest pressure, squeezing, or discomfort Shortness of breath Sweating, or a cold sweat Feeling of impending doom There are unusual signs of a heart attack, too! Women, the elderly, and diabetics may present with atypical symptoms: Fainting/dizziness Weakness Confusion Risk Factors for a Heart Attack Some heart disease risk factors, such as age and family history, cannot be changed. Others, like smoking and lack of exercise, can be changed. Smoking High Cholesterol High Blood Pressure Family History Obesity Age Gender (Males are at higher risk) Lack of Exercise Diabetes Diet Stress Excessive Alcohol Intake If you or someone you know is experiencing the signs and symptoms of a heart attack, DON???T DELAY. Call immediately and seek help. If someone collapses, perform CPR! Do not attempt to drive if you are having symptoms of heart attack. Hands-Only CPR Why Hands-Only CPR? Hands-Only CPR has been shown to be as effective as conventional CPR for cardiac arrests that occur outside of a hospital. Survival depends on immediately receiving CPR from someone nearby. How do you perform Hands-Only CPR? There are two easy steps: Call if you see a teen or adult collapse Push hard and fast in the center of the chest at a beat of 100 beats per minute. Save a life! 4 WAYS TO GET AHEAD OF SEPSIS SEPSIS is a MEDICAL EMERGENCY. Time matters! Infections put you and your family at risk for a life-threatening condition called sepsis. Sepsis is the body's extreme response to an infection. It is life-threatening, and without timely treatment, sepsis can rapidly lead to tissue damage, organ failure, and . Sepsis happens when an infection you already have-in your skin, lungs, urinary tract or somewhere else-triggers a chain reaction throughout your body. 1 PREVENT INFECTIONS Take good care of chronic conditions. Talk to your doctor about getting the recommended vaccines. 2 PRACTICE GOOD HYGIENE Wash your hands frequently. Keep cuts or open sores clean and covered until they are healed. 3 KNOW THE SYMPTOMS Confusion or disorientation Shortness of breath High heart rate Fever, shivering, or feeling very cold Extreme pain or discomfort Clammy or sweaty skin 4 ACT FAST Get medical care IMMEDIATELY if you suspect sepsis or if you have an infection that is not getting better or is getting worse. To learn more about sepsis and how to prevent infections, visit www.cdc.gov/sepsis. Patient Portal Reminder: Be sure to sign up for the [facility] patient portal, which gives you 02/10 access to your medical information ??? including these discharge instructions ??? using your computer, smartphone, or tablet. Just go to [place] to get started. Questions? Call . Test Results Laboratory or Other Results This Visit (last charted value for your 07/15/2018 visit) Hematology 07/16/18 04:02:00 Hct: 26.5 % -- Normal range between ( 34.1 and 44.9 ) Hgb: 9.1 Gram/dL -- Normal range between ( 11.2 and 15.7 ) Blood Bank 07/15/18 06:39:00 ABO/Rh Repeat: A POS 07/15/18 06:37:00 ABO/Rh: A POS Antibody Screen (Tube): Negative [facility] General Chemistry 07/16/18 04:02:00 Creatinine Level: 0.47 mg/dL -- Normal range between ( 0.55 and 1.02 ) Sodium Level: 130 mmol/L -- Normal range between ( 136 and 146 ) Potassium Level: 3.6 mmol/L -- Normal range between ( 3.5 and 5.1 ) Chloride Level: 93 mmol/L -- Normal range between ( 102 and 112 ) Carbon Dioxide Level: 29 mmol/L -- Normal range between ( 21 and 32 ) Anion Gap: 12 -- Normal range between ( 9 and 20 ) Bun/Creatinine: 17.0 -- Normal range between ( 8.0 and 20.0 ) Calcium Level: 8.7 mg/dL -- Normal range between ( 8.5 and 10.1 ) eGFR : >60 mL/min/1.73m2 eGFR NonAfrican: >60 mL/min/1.73m2 Glucose Level: 110 mg/dL -- Normal range between ( 74 and 106 ) Blood Urea Nitrogen: 8 mg/dL -- Normal range between ( 7 and 22 ) Patient Name:CINDY LABOY I have received and understand this information and was given the opportunity to ask questions. Patient/Embedded Case Manager Name: Patient/Embedded Case Manager Signature: Relationship to Patient: Clinician/Hospital Embedded Case Manager Signature: Date: documented in this encounter Plan of Treatment Not on file documented as of this encounter Visit Diagnoses Not on filedocumented in this encounter
--- OUTSIDE RECORDS SUMMARY | 2024-08-19 13:32 | XMS_ITS | Encounter Summary ---
Author Organization [employer] Address [address] [place] [id number] Care Team Providers Care Keno Writer / Runner Name Role Phone Unavailable Primary Care Provider Unavailabl e Encounter Details Date Type Department Care Team (Late st Contact Info) Description 06/28/2018 Transcribed Document [facility] [place] [facility] [place] [address] ProviderKristel MD [facility] [place] [address] Social History Tobacco Use Types [...] Conversion Note - Historical ProviderMD - 06/28/2018 9:57 AM CDT Event Note Entered On: 06/28/2018 9:58 EDT Performed On: 06/28/2018 9:57 EDT by CLARISSA GUERRERO RN Event Note Event Date/Time : 06/28/2018 9:57 EDT Description of Event : called [id number] , spoke to Latisha, informed her that patient has a latex allergy CLARISSA GUERRERO, RN - 06/28/2018 9:57 EDT Electronically signed by Tatiana Ponce Conversion Outpatient Coding Specialist Cerremy at 06/29/2022 1:40 PM CDT documented in this encounter Plan of Treatment Not on file documented as of this encounter Visit Diagnoses Not on filedocumented in this encounter
--- OUTSIDE RECORDS SUMMARY | 2024-08-19 13:32 | XMS_ITS | Encounter Summary ---
Author Organization [employer] Address [address] [place] [address] Care Team Providers Care Commission Clerk Name Role Phone Unavailable Primary Care Provider Unavailabl e Encounter Details Date Type Department Care Team (Late st Contact Info) Description 07/16/2018 Transcribed Document [facility] [place] Family Medicine [facility] [place] [address] ProviderKristel MD [facility] [place] [address] Social History Tobacco Use Types [...] Conversion Note - Kristel ProviderMD - 07/16/2018 12:09 [place] [address] CINDY LABOY :1945 Visit Time:07/15/2018 Your Visit Summary Your Care Team Admitting Physician - RONAL ROBERT MD Attending Physician - DEREK DURAN MD-ORT Primary Care Physician - RANDAL ALBARADO (REF)[facility] Referring Physician - DEREK DURAN MD-ORT Your Diagnosis S/P total hip arthroplasty Unilateral primary osteoarthritis, right hip, Unilateral primary osteoarthritis, right hip These Are Your Goals I want to mow the yard. Interventions: Work with PT Discharge Vitals Heart Rate 72 Blood Pressure 105/62 What to do next Instructions From Your Care Team [facility], PT WILL NEED TO INFORM HOME HEALTH DIRECTLY OF WHEN SHE WILL CHANGE 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 TO HER OWN HOME [phone] PT HAS ALL NEEDED DME Follow-Up Appointments Follow Up with JAIDEN LEBRON PA-C When 08/26/2018 10:00 AM EDT Comments Appointment has been made Where: [address] [facility] [address] [place] [address]- Follow Up with Follow up with primary [...] Barley. Bulgur wheat. Millet. Bran muffins. Popcorn. [place] wafer crackers. Vegetables Sweet potatoes. Spinach. Kale. Artichokes. Cabbage. Broccoli. Green peas. Carrots. Squash. Fruits Berries. Pears. Apples. Oranges. Avocados. Prunes and raisins. Dried figs. Meats and Other Protein Sources [place], kidney, christ[place]on, and soy beans. Split peas. [...] gabriel has 11 g of protein. ??? [place] seeds ??? 1 oz has 5.5 g [...] floor. ??? Place frequently used items in jpar-yc-cweoq places ??? Keep electrical cables out of [...] ??? Using the bathroom. ??? Using household welder fitter arc or toxic chemicals. ??? Touching or taking [...] Assistance with quitting is available by contacting 9-164-GIUJ-NOW. This is a free resource providing counseling, [...] Be sure to sign up for the [facility] patient portal, which gives you 02/10 access to your medical information ??? including these discharge instructions ??? using your computer, smartphone, or tablet. Just go to [employer] to get started. Questions? Call . Test [...] was given the opportunity to ask questions. Patient/Wine Bottle Inspector Name: Patient/Wine Bottle Inspector Signature: Relationship to Patient: Clinician/Hospital Wine Bottle Inspector Signature: Date: documented in this encounter Plan of Treatment Not on file documented as of this encounter Visit Diagnoses Not on filedocumented in this encounter
--- OUTSIDE RECORDS SUMMARY | 2024-08-19 13:32 | XMS_ITS | Encounter Summary ---
Author Organization [employer] Address [address] [place] [address] Care Team Providers Care Lumber Sorter Machine Name Role Phone Unavailable Primary Care Provider Unavailabl e Encounter Details Date Type Department Care Team (Late st Contact Info) Description 07/16/2018 Transcribed Document [facility] [place] Family Medicine [facility] [place] [address] ProviderKristel MD [facility] [place] [address] Social History Tobacco Use Types [...] Conversion Note - Kristel ProviderMD - 07/16/2018 12:10 [place] [address] CINDY LABOY :1945 Visit Time:07/15/2018 Your Visit Summary Your Care Team Admitting Physician - RONAL ROBERT MD Attending Physician - DEREK DURAN MD-ORT Primary Care Physician - RANDAL ALBARADO (REF)MD-[facility] Referring Physician - DEREK DURAN MD-ORT Your Diagnosis S/P total hip arthroplasty Unilateral primary osteoarthritis, right hip, Unilateral primary osteoarthritis, right hip These Are Your Goals I want to mow the yard. Interventions: Work with PT Discharge Vitals Heart Rate 72 Blood Pressure 105/62 What to do next Instructions From Your Care Team [facility], PT WILL NEED TO INFORM HOME HEALTH DIRECTLY OF WHEN SHE WILL CHANGE 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 TO HER OWN HOME [phone] PT HAS ALL NEEDED DME Follow-Up Appointments Follow Up with JAIDEN LEBRON PA-C When 08/26/2018 10:00 AM EDT Comments Appointment has been made Where: [address] [facility] [address] [place] [address]- Follow Up with Follow up with primary [...] Barley. Bulgur wheat. Millet. Bran muffins. Popcorn. [place] wafer crackers. Vegetables Sweet potatoes. Spinach. Kale. Artichokes. Cabbage. Broccoli. Green peas. Carrots. Squash. Fruits Berries. Pears. Apples. Oranges. Avocados. Prunes and raisins. Dried figs. Meats and Other Protein Sources [place], kidney, christ[place]on, and soy beans. Split peas. [...] gabriel has 11 g of protein. ??? [place] seeds ??? 1 oz has 5.5 g [...] floor. ??? Place frequently used items in odbm-kf-wkrjv places ??? Keep electrical cables out of [...] ??? Using the bathroom. ??? Using household senior front end engineer or toxic chemicals. ??? Touching or taking [...] Assistance with quitting is available by contacting 5-211-ZJXP-NOW. This is a free resource providing counseling, [...] Be sure to sign up for the [facility] patient portal, which gives you 02/10 access to your medical information ??? including these discharge instructions ??? using your computer, smartphone, or tablet. Just go to [employer] to get started. Questions? Call . Test [...] was given the opportunity to ask questions. Patient/Hemodialysis Technician Name: Patient/Hemodialysis Technician Signature: Relationship to Patient: Clinician/Hospital Hemodialysis Technician Signature: Date: documented in this encounter Plan of Treatment Not on file documented as of this encounter Visit Diagnoses Not on filedocumented in this encounter
--- OUTSIDE RECORDS SUMMARY | 2024-08-19 13:32 | XMS_ITS | Encounter Summary ---
Author Organization [employer] Address [address] [place] [address] Care Team Providers Care Flatwork Washer Name Role Phone Unavailable Primary Care Provider Unavailabl e Encounter Details Date Type Department Care Team (Late st Contact Info) Description 06/28/2018 Transcribed Document [facility] [place] Family Medicine [facility] [place] [address] ProviderKristel MD [address] [place] [address] Social History Tobacco Use Types Packs/Day [...] Cerner Conversion Note - Kristel ProviderMD - 06/28/2018 10:15 AM CDT Patient: CINDY LABOY Age: 73 Years Sex: Female : 1945 Chief Complaint Right Hip Pain Primary Care Provider RANDAL ALBARADO (REF)MD-[facility] History of Present Illness This patient is [...] Anterior Approach and agreed to the procedure. Pt denies a h/o DVT/PE. No trouble with anesthesia in the past. Pt has a h/o COPD but no asthma or JOHN. Review of Systems Constitutional: Neg for fevers or chills. Eyes: Neg for blurry vision or change in vision. ENT: Neg for sore throat, ear pain, or dizziness. Cardiac: Neg for chest pain or dyspnea on exertion. Respiratory: Neg for shortness of breath. Gastrointestinal: Neg for nausea, vomiting, diarrhea, or constipation. Musculoskeletal: Pos for right hip pain. Neurologic: Neg for headaches or seizures. Psychiatric: Neg for anxiety and depression. Integumentary: Neg for rash. Vital Signs Vitals Signs (last 24 hrs) Last Charted Minimum Maximum Temp 97.6 (JUN 28 10:15) 97.6 (JUN 28 10:15) 97.6 (JUN 28 10:15) Periph HR 62 (JUN 28 10:15) 62 (JUN 28 10:15) 62 (JUN 28 10:15) Resp Rate 18 (JUN 28 10:15) 18 (JUN 28 10:15) 18 (JUN 28 10:15) SBP H 148 (JUN 28 10:15) H 148 (JUN 28 10:15) H 148 (JUN 28 10:15) DBP 69 (JUN 28 10:15) 69 (JUN 28 10:15) 69 (JUN 28 10:15) SpO2 96 (JUN 28 10:15) 96 (JUN 28 10:15) 96 (JUN 28 10:15) Oxygen Settings (Last) Oxygen Therapy Mode: Room air (06/28/18 10:15:00 EDT) Physical Exam Constitutional: This is a pleasant 73 yo WF, BMI 27.1, in no acute distress. HEENT: Normocephalic, atraumatic. PEERLA. Extraocular muscles intact. Conjunctiva pink without exudate. Oropharynx pink and moist. Neck supple. No JVD. Cardiac: SI, S2. RRR. No M/R/G. Respiratory: Lungs CTA bilaterally. No wheezes, rales, or rhonchi. Abdomen: Soft, nontender, nondistended. Active bowel sounds. No visible masses. Musculoskeletal: Right Hip Flexion 100, IR 0, ER 35. Integumentary: Skin is pink, warm and dry. No rashes. Neurologic: CN II-XII grossly intact. Psychiatric: Judgment and affect appropriate. Assessment/Plan 1. Preoperative Evaluation- Pt underwent preoperative laboratory workup and diagnostic studies. This included a medical evaluation from her PCP who provided her with clearance to proceed with surgery. 2. Right Hip Pain secondary to DJD- Proceed with surgery as scheduled with Dr Merritt on 07/15/2018. 3. Hypertension- Continue HCTZ/Triamterene and Metoprolol. 4. Hypothyroidism- Continue Synthroid. 5. Anxiety- Continue Alprazolam. 6. COPD- Nebs/Inhalers prn. Problem List/Past Medical History Ongoing Anxiety disorder At risk for sleep apnea COPD (chronic obstructive pulmonary disease) Hyperlipidemia Hypertension Hypothyroidism Osteoarthritis SVT (supraventricular tachycardia) Procedure/Surgical History Cholecystectomy, left hip replacment, - Spontaneous vaginal delivery, Thyroidectomy, Tonsillectomy, Tubal ligation. Home Medications (7) Active ALPRAZolam 0.5 mg oral [...] mg oral tablet 1 Tab, Oral, Daily Allergies Decongestant (Heart rate increase) Latex diclofenac (Facial swelling) doxycycline (Yeast infection) ketoprofen Social History Alcohol Alcohol Use History No. Substance Abuse Drug Use Hx: No. Tobacco 10 or more cigarettes (1/2 pack or more)/day in last 30 days Smoking Status. Never Smokeless Tobacco Status. Family History Pt mother at 89 from Pancreatic Cancer. Pt father at 76 from a low red blood cell count. Diagnostic Results EKG- Sinus rhythm, 69 CXR- COPD, NAD Lab Results WBCs- 8.3 Hbg- 13.6 Hct- 41.8 Plts- 293 Glucose- 101 Na- 134 K- 4.5 BUN- 17 Cr- 0.76 GFR- 75 Hbg A1C- 5.8 PT- 10.1 INR- 0.98 PTT- 25 UA is neg for nitrites and LE documented in this encounter Plan of Treatment Not on file documented as of this encounter Visit Diagnoses Not on filedocumented in this encounter
--- OUTSIDE RECORDS SUMMARY | 2024-08-19 13:32 | XMS_ITS | Encounter Summary ---
Author Organization [employer] Address [address] [place] [address] Care Team Providers Care Associate Property Manager Name Role Phone Unavailable Primary Care Provider Grady peres Encounter Details Date Type Department Care Team (Late st Contact Info) Description 07/16/2018 Transcribed Document [facility] Family Medicine [facility] [place] [address] ProviderKristel MD [facility] [place] [address] Social History Tobacco Use Types [...] Conversion Note - Historical ProviderMD - 07/16/2018 5:00 AM CDT Chart Check - Review Order Profile Entered On: 07/16/2018 3:40 EDT Performed On: 07/16/2018 5:00 EDT by Karina Zimmer LPN Chart Check Powerplans Initiated/Discontinued as Appropriate : Yes All Active Orders Reviewed : Yes Karina Zimmer LPN - 07/16/2018 3:40 EDT documented in this encounter Plan of Treatment Not on file documented as of this encounter Visit Diagnoses Not on filedocumented in this encounter
[2024-08-19 13:45] VITALS: BP 107/52; PULSE 67; O2SAT 95
== END 2024-08-19 13:50 | disposition home or self-care (01) ==
LOC: INF 13:14
PROVIDERS: PCP Nurse Practitioner Family; Visit Provider Internal Medicine Medical Oncology
DX: C50.911 Malignant neoplasm of unspecified site of right female breast (principal)
CPT/HCPCS: 96374; J3489

== ENCOUNTER 2024-08-22 09:10 | Outpatient (CLI) | payer MEDICARE, MEDICAID, SELFPAY ==
--- OUTSIDE RECORDS SUMMARY | 2024-08-22 09:12 | XMS_ITS | Encounter Summary ---
Author Organization [employer] Address [address] [place] [address] Care Team Providers Care Boiler Shop Mechanic Name Role Phone Unavailable Primary Care Provider Unavailabl e Encounter Details Date Type Department Care Team (Late st Contact Info) Description 07/15/2018 Transcribed Document [facility] [place] [facility] [place] [address] ProviderKristel MD [address] [place] [address] Social History Tobacco Use Types Packs/Day [...] NIRU AIKEN PT - 07/16/2018 10:39 EDT Detention Goals Other PT LTG Grid Goal #1 [...]
--- OUTSIDE RECORDS SUMMARY | 2024-08-22 09:12 | XMS_ITS | Encounter Summary ---
Author Organization [employer] Address [address] [place] [address] Care Team Providers Care Coal Getter Name Role Phone Unavailable Primary Care Provider Unavailabl e Encounter Details Date Type Department Care Team (Late st Contact Info) Description 07/15/2018 Transcribed Document [facility] [place] Medicine [facility] [place] [address] ProviderKristel MD [facility] [place] [address] Social History Tobacco Use Types [...]
--- OUTSIDE RECORDS SUMMARY | 2024-08-22 09:12 | XMS_ITS | Encounter Summary ---
Author Organization [employer] Address [address] [place] [address] Care Team Providers Care Service Observer Chief Name Role Phone Unavailable Primary Care Provider Unavailabl e Encounter Details Date Type Department Care Team (Late st Contact Info) Description 07/15/2018 Transcribed Document [facility] [place] [facility] [place] [address] ProviderKristel MD [address] [place] [address] Social History Tobacco Use Types Packs/Day [...] Assist, minimal Toileting Device : Commode, bedside, [id number] commode Toilet Transfer Assist Level : Assist, [...] OSCAR FRANZ OTR/L - 07/15/2018 12:28 EDT Journeyman Carpenter Goals, OT Other LTG Grid Goal #1 [...] 1 OT Eval Low Complexity : 1 OSCAR FRANZ, OTR/L - 07/15/2018 12:28 EDT Electronically signed by Rosario, [facility] Conversion Nickel Plater Cerner at 06/29/2022 1:44 PM CDT documented in this encounter Plan of Treatment Not on file documented as of this encounter Visit Diagnoses Not on filedocumented in this encounter
--- OUTSIDE RECORDS SUMMARY | 2024-08-22 09:12 | XMS_ITS | Clinical Summary ---
Author Organization [employer] Address [address] [place] [address] Care Team Providers Care Business Performance Advisor Name Role Phone Unavailable Primary Care Provider [...] Date Bryson rded Speak language other than Polish at home Not on file 03/30/2023 Want [...]
--- OUTSIDE RECORDS SUMMARY | 2024-08-22 09:12 | XMS_ITS | Encounter Summary ---
Author Organization [employer] Address [address] [place] [address] Care Team Providers Care Front End Mechanic Name Role Phone Unavailable Primary Care Provider Unavailabl e Encounter Details Date Type Department Care Team (Late st Contact Info) Description 07/15/2018 Transcribed Document [facility] [place] Family Medicine [facility] [place] [address] ProviderKristel MD [address] [place] [address] Social History Tobacco Use Types Packs/Day [...] VERO TAMEZ, PT - 07/15/2018 12:39 EDT Benefits Processor Goals Other PT LTG Grid Goal #1 [...] VERO TAMEZ, PT - 07/15/2018 12:39 EDT [place] PT Charges Gait Training Each 15 Min : 1 PT Eval Low Complexity : 1 VERO TAMEZ, PT - 07/15/2018 12:39 EDT documented in this encounter Plan of Treatment Not on file documented as of this encounter Visit Diagnoses Not on filedocumented in this encounter
--- OUTSIDE RECORDS SUMMARY | 2024-08-22 09:13 | XMS_ITS | Encounter Summary ---
Author Organization [email or web address] Address [address] [place] [address] Care Team Providers Care Hydrator Operator Name Role Phone Unavailable Primary Care Provider Grayd peres Encounter Details Date Type Department Care Team (Late st Contact Info) Description 07/16/2018 Transcribed Document [facility] [place] [facility] [place] [address] ProviderKristel MD [facility] [place] [address] Social History Tobacco Use Types [...]
--- OUTSIDE RECORDS SUMMARY | 2024-08-22 09:13 | XMS_ITS | Encounter Summary ---
Author Organization [employer] Address [address] [place] [address] Care Team Providers Care Financial Services Sales Representative Name Role Phone Unavailable Primary Care Provider Unavailabl e Encounter Details Date Type Department Care Team (Late st Contact Info) Description 07/16/2018 Transcribed Document [facility] [place] [facility] [place] [address] ProviderKristel MD [facility] [place] [address] Social History Tobacco Use Types [...] Kristel ProviderMD - 07/16/2018 12:02 [place] [address] CINDY LABOY :1945 Visit Time:07/15/2018 Your Visit Summary Your Care Team Admitting Physician - RONAL ROBERT MD Attending Physician - DEREK DURAN MD-ORT Primary Care Physician - RANDAL ALBARADO (REF)MD-[facility] Referring Physician - DEREK DURAN MD-ORT Your Diagnosis S/P total hip arthroplasty Unilateral primary osteoarthritis, right hip, Unilateral primary osteoarthritis, right hip These Are Your Goals I want to mow the yard. Interventions: Work with PT Discharge Vitals Heart Rate 72 Blood Pressure 105/62 What to do next Instructions From Your Care Team [facility], PT WILL NEED TO INFORM HOME HEALTH DIRECTLY OF WHEN SHE WILL CHANGE 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 TO HER OWN HOME [phone] PT HAS ALL NEEDED DME Follow-Up Appointments Follow Up with JAIDEN LEBRON PA-C When 08/26/2018 10:00 AM EDT Comments Appointment has been made Where: [address] [facility] [address] [place] [address]- Follow Up with Follow up with primary [...] Barley. Bulgur wheat. Millet. Bran muffins. Popcorn. [place] wafer crackers. Vegetables Sweet potatoes. Spinach. Kale. Artichokes. Cabbage. Broccoli. Green peas. Carrots. Squash. Fruits Berries. Pears. Apples. Oranges. Avocados. Prunes and raisins. Dried figs. Meats and Other Protein Sources [place], kidney, christianson, and soy beans. Split peas. [...] gabriel has 11 g of protein. ??? [place] seeds ??? 1 oz has 5.5 g [...] floor. ??? Place frequently used items in ocgh-wo-zpqyu places ??? Keep electrical cables out of [...] ??? Using the bathroom. ??? Using household union organizer or toxic chemicals. ??? Touching or taking [...] Assistance with quitting is available by contacting 6-441-IXRB-NOW. This is a free resource providing counseling, [...] Be sure to sign up for the [facility] patient portal, which gives you 02/10 access to your medical information ??? including these discharge instructions ??? using your computer, smartphone, or tablet. Just go to [employer] to get started. Questions? Call . Test [...] was given the opportunity to ask questions. Patient/Microfiche Duplicator Name: Patient/Microfiche Duplicator Signature: Relationship to Patient: Clinician/Hospital Microfiche Duplicator Signature: Date: documented in this encounter Plan of Treatment Not on file documented as of this encounter Visit Diagnoses Not on filedocumented in this encounter
--- OUTSIDE RECORDS SUMMARY | 2024-08-22 09:13 | XMS_ITS | Encounter Summary ---
Author Organization [employer] Address [address] [place] [address] Care Team Providers Care Cement Fittings Maker Name Role Phone Unavailable Primary Care Provider Unavailabl e Encounter Details Date Type Department Care Team (Late st Contact Info) Description 07/16/2018 Transcribed Document [facility] [place] Family Medicine [facility] [place] [address] ProviderKristel MD [facility] [place], [place] [address] Social History Tobacco Use Types Packs/Day Years [...]
--- OUTSIDE RECORDS SUMMARY | 2024-08-22 09:13 | XMS_ITS | Encounter Summary ---
Author Organization [employer] Address [address] [place] [address] Care Team Providers Care Learning Center Coordinator Name Role Phone Unavailable Primary Care Provider Unavailabl e Encounter Details Date Type Department Care Team (Late st Contact Info) Description 07/16/2018 Transcribed Document [facility] [place] Medicine [facility] [place] [address] ProviderKristel MD [facility] [place], [place] 4486[address] Social History Tobacco Use Types Packs/Day Years [...]
--- OUTSIDE RECORDS SUMMARY | 2024-08-22 09:13 | XMS_ITS | Encounter Summary ---
Author Organization [employer] Address [address] [place] [address] Care Team Providers Care Special Investigation Unit Investigator Name Role Phone Unavailable Primary Care Provider Grady peres Encounter Details Date Type Department Care Team (Late st Contact Info) Description 07/15/[address] [facility] [place] Medicine [facility] [place] [address] ProviderKristel MD [address] [place] [address] Social History Tobacco Use Types Packs/Day [...]
--- OUTSIDE RECORDS SUMMARY | 2024-08-22 09:13 | XMS_ITS | Encounter Summary ---
Author Organization [employer] Address [address] [place] [address] Care Team Providers Care Child & Adolescent Psychiatrist Name Role Phone Unavailable Primary Care Provider Unavailabl e Encounter Details Date Type Department Care Team (Late st Contact Info) Description 07/16/2018 Transcribed Document [place] Family Medicine [facility] [place] [address] ProviderKristel MD [facility] [place] [place] [address] Social History Tobacco Use Types [...] 07/16/2018 9:54 EDT by NAYA MINOR Care Management-Heating Repair Technician Final Discharge Planning Discharge Arrangements : Patient Post-Acute Information Patient Name: CINDY BRAXTON Gender: Female : [birth year] Age: 73 Years No Post-Acute Placement(s) Listed No Post-Acute Service(s) Listed No [place] Referral(s) Listed NAYA MINOR Care Management-Heating Repair Technician - 07/16/2018 9:54 EDT [facility] Service : [facility] Organization : PHYSICAL THERAPY MILY, NAYA, Care Management-Heating Repair Technician - 07/16/2018 9:54 EDT Discharge To Care Management : Home Health Services (Related/SOC within 3 days)-06 NAYA MINOR Care Management-Heating Repair Technician - 07/16/2018 9:54 EDT Electronically signed by Rosario [facility] Conversion Aluminum Fabrication Supervisor Cerner at 06/29/2022 1:31 PM CDT documented in this encounter Plan of Treatment Not on file documented as of this encounter Visit Diagnoses Not on filedocumented in this encounter
--- OUTSIDE RECORDS SUMMARY | 2024-08-22 09:13 | XMS_ITS | Encounter Summary ---
Author Organization [employer] Address [address] [place] [address] Care Team Providers Care Animal Keeper Head Name Role Phone Unavailable Primary Care Provider Unavailabl e Encounter Details Date Type Department Care Team (Late st Contact Info) Description 07/15/2018 Transcribed Document [facility] [place] [facility] [place] [address] ProviderKristel MD [address] [place] [address] Social History Tobacco Use Types Packs/Day [...]
--- OUTSIDE RECORDS SUMMARY | 2024-08-22 09:13 | XMS_ITS | Encounter Summary ---
Author Organization [employer] Address [address] [place] [address] Care Team Providers Care Treasury Consultant Name Role Phone Unavailable Primary Care Provider Unavailabl e Encounter Details Date Type Department Care Team (Late st Contact Info) Description 07/16/2018 Transcribed Document [facility] [place] [address] ProviderKristel MD [address] [place] [address] Social History Tobacco Use Types Packs/Day [...]
--- OUTSIDE RECORDS SUMMARY | 2024-08-22 09:13 | XMS_ITS | Encounter Summary ---
Author Organization [employer] Address [address] [place] [address] Care Team Providers Care Motel Operator Name Role Phone Unavailable Primary Care Provider Unavailabl e Encounter Details Date Type Department Care Team (Late st Contact Info) Description 07/16/[address] [facility] [place] [facility] [place] [address] ProviderKristel MD [address] [place] [address] Social History Tobacco Use Types Packs/Day [...]
--- OUTSIDE RECORDS SUMMARY | 2024-08-22 09:13 | XMS_ITS | Encounter Summary ---
Author Organization [employer] Address [address] [place] [address] Care Team Providers Care Repacker Name Role Phone Unavailable Primary Care Provider Unavailabl e Encounter Details Date Type Department Care Team (Late st Contact Info) Description 06/28/2018 Transcribed Document [facility] [place] [facility] [place] [address] ProviderKristel MD [address] [place] [address] Social History Tobacco Use Types Packs/Day [...] Hip Pain Primary Care Provider RANDAL ALBARADO (REF)[facility] History of Present Illness This patient [...]
--- OUTSIDE RECORDS SUMMARY | 2024-08-22 09:13 | XMS_ITS | Encounter Summary ---
Author Organization [employer] Address [address] [place] [address] Care Team Providers Care Airborne Electronics Analyst Name Role Phone Unavailable Primary Care Provider Unavailabl e Encounter Details Date Type Department Care Team (Late st Contact Info) Description 07/15/2018 Transcribed Document [facility] [place] [facility] [place] [address] ProviderKristel MD [address] [place] [address] Social History Tobacco Use Types Packs/Day [...] DANA PALMA OTR/L - 07/16/2018 10:58 EDT Tape Control Skin Or Spar Mill Operator Goals, OT Other LTG Grid Goal #1 [...]
--- OUTSIDE RECORDS SUMMARY | 2024-08-22 09:13 | XMS_ITS | Encounter Summary ---
Author Organization [employer] Address [address] [place] [address] Care Team Providers Care Infection Prevention Specialist Name Role Phone Unavailable Primary Care Provider Unavailabl e Encounter Details Date Type Department Care Team (Late st Contact Info) Description 07/15/2018 Transcribed Document [facility] [place] Family Medicine [facility] [place] [address] ProviderKristel MD [address] [place] [address] Social History Tobacco Use Types Packs/Day [...] Kristel ProviderMD - 07/15/2018 8:01 AM CDT [facility] OR PACU Summary Primary Physician: DEREK DURAN MD-ORT Finalized Date/Time: 07/15/18 10:28:25 Pt. Name: CINDY LABOY /Sex: 1945 Female Med Rec #: [id number] Physician: DEREK DURAN MD-ORT Financial #: [id number] Pt. Type: I Room/Bed: [facility]/ Admit/Disch: 07/15/18 04:51:00 - Institution: [facility] OR PACU Case Times Entry 1 In PACU I 07/15/18 09:21:00 Ready for PACU 07/15/18 09:51:00 Discharge Discharge from PACU 07/15/18 10:10:00 I Last Modified By: Nikki Wang RN 07/15/18 10:27:52 [facility] OR PACU Case Times Audit 07/15/18 10:27:52 Motorcycle Repairer: HELFEP Modifier: HELFEP <+> 1 Ready for PACU Discharge <+> 1 Discharge from PACU I [facility] OR PACU Acuity Entry 1 Start Time 07/15/18 09:51:00 Stop Time 07/15/18 10:10:00 Acuity Level [facility] PACU Acuity I Last Modified By: Nikki Wang RN 07/15/18 10:28:21 Finalized By: Nikki Wang RN Document Signatures Signed By: Nikki Wang RN 07/15/18 10:28 Electronically signed by Rosario [facility] Conversion Silk Screen Painter Cerner at 06/29/2022 1:40 PM CDT documented in this encounter Plan of Treatment Not on file documented as of this encounter Visit Diagnoses Not on filedocumented in this encounter
--- OUTSIDE RECORDS SUMMARY | 2024-08-22 09:13 | XMS_ITS | Encounter Summary ---
Author Organization [employer] Address [address] [place] [address] Care Team Providers Care Pick Pulling Machine Tender Name Role Phone Unavailable Primary Care Provider Unavailabl e Encounter Details Date Type Department Care Team (Late st Contact Info) Description 07/15/2018 Transcribed Document [facility] Family Medicine [facility] [place] [address] ProviderKristel MD [address] [place] [address] Social History Tobacco Use Types Packs/Day [...] 07/15/2018 6:15 EDT by Earlene Sheriff Patient Dj Instructor Height and Weight, Clinical Dosing Height Source : Stated Height Entry Format : Dickey Height, Feet : 5 ft(Converted to: 152 cm, 60 Inch) Height, Inches : 1 Inch(Converted to: 0 ft 1 Inch, 2.54 cm) Clinical Height : 154.94 cm Weight Source : Standing scale Weight Entry Format : Dickey Clinical Dosing Weight : 63.18 kg Weight, Pounds : 139 lb Body Surface Area (BSA) : 1.62 m2 Body Mass Index : 26.3 kg/m2 (HI) [place] Body Weight : 47 kg Earlene Sheriff Patient Dj Instructor - 07/15/2018 6:15 EDT documented in this encounter Plan of Treatment Not on file documented as of this encounter Visit Diagnoses Not on filedocumented in this encounter
--- OUTSIDE RECORDS SUMMARY | 2024-08-22 09:13 | XMS_ITS | Encounter Summary ---
Author Organization [employer] Address [address] [place] [address] Care Team Providers Care Network Consultant Name Role Phone Unavailable Primary Care Provider Unavailabl e Encounter Details Date Type Department Care Team (Late st Contact Info) Description 06/28/2018 Transcribed Document [facility] [place] [facility] [place] [address] ProviderKristel MD [address] [place] [address] Social History Tobacco Use Types Packs/Day [...] Source : Stated Height Entry Format : Keavy Height, Feet : 5 ft(Converted to: 152 cm, 60 Inch) Height, Inches : 1 Inch(Converted to: 0 ft 1 Inch, 2.54 cm) Clinical Height : 154.94 cm Weight Source : Standing scale Weight Entry Format : Keavy Clinical Dosing Weight : 65 kg Weight, Pounds : 143 lb Body Surface Area (BSA) : 1.64 m2 Body Mass Index : 27.1 kg/m2 (HI) [place] Body Weight : 47 kg CLARISSA GUERRERO [...] #2 Relationship : daughter Primary Language : Czech Communication Barrier : None CLARISSA GUERRERO RN [...]
--- OUTSIDE RECORDS SUMMARY | 2024-08-22 09:13 | XMS_ITS | Encounter Summary ---
Author Organization [employer] Address [address] [place] [address] Care Team Providers Care Order Booker Name Role Phone Unavailable Primary Care Provider Unavailabl e Encounter Details Date Type Department Care Team (Late st Contact Info) Description 07/15/2018 Transcribed Document [facility] [place] [facility] [place] [address] ProviderKristel MD [address] [place] [address] Social History Tobacco Use Types Packs/Day [...] MD-ORT Finalized Date/Time: 07/15/18 09:37:40 Pt. Name: EDSON LABOY /Sex: 1945 Female Med Rec #: [id number] Physician: DEREK DURAN MD-ORT Financial #: [id number] Pt. Type: I Room/Bed: [facility] Admit/Disch: 07/15/18 04:51:00 - Institution: [facility] [place] IntraOp Case Attendance Entry 1 Entry 2 Entry 3 Case Attendee Ney Ann ST Austin, Martha Wells RN Role Performed Scrub, Second Scrub, First Remote Broadcast Technician, First Time In 07/15/18 07:28:00 07/15/18 07:28:00 07/15/18 07:28:00 Time Out 07/15/18 09:18:00 07/15/18 09:18:00 07/15/18 09:18:00 Procedure Hip Total Anterior Hip Total Anterior Hip Total Anterior Approach Approach Approach Other Attendee Superficial Wound Closed By: Last Modified By: Marhta Torrez RN Bland, Jordyn A, RN Bland, Jordyn A, RN 07/15/18 09:35:33 07/15/18 09:35:34 07/15/18 09:35:33 Entry 4 Entry 5 Entry 6 Case Attendee DEREK DURAN, Deedee Brown, Frankie Brooks, Aysha Guerra MD-ORT Tech Wad Blanking Press Adjuster Role Performed Surgeon/Proceduralist, Assistive Personnel Twisting Frame Fixer First Time In 07/15/18 07:59:00 07/15/18 07:28:00 [...] 9 Case Attendee CLARITZA VEGAS, CELSO DAMON, FEED MANAGEMENT ADVISOR MAHAMED BE, PAC Role Performed Camp Advisor, First FEED MANAGEMENT ADVISOR/Nurse Continuous Process Tanner Rotary Drum Physician store assistant Time In 07/15/18 07:28:00 07/15/18 07:28:00 [...] [facility] IntraOp Case Attendance Audit 07/15/18 09:35:34 Chemical Waste Management Technician: KARLOS Modifier: KARLOS 8 <+> Time Out 8 <*> Procedure Hip Total Anterior Approach 9 <+> Time Out 9 <*> Procedure Hip Total Anterior Approach 10 <+> Time Out 10 <*> Procedure Hip Total Anterior Approach 07/15/18 09:35:33 Chemical Waste Management Technician: KARLOS Modifier: KARLOS 1 <+> Time Out [...] Procedure Hip Total Anterior Approach 07/15/18 08:26:33 Chemical Waste Management Technician: KARLOS Modifier: KARLOS 7 <+> Time Out 7 <*> Procedure Hip Total Anterior Approach 9 <*> Time In 07/15/18 07:28:00 9 <*> Procedure Hip Total Anterior Approach 07/15/18 08:01:40 Chemical Waste Management Technician: KARLOS Modifier: KARLOS 1 <*> Case Attendee DEREK DURAN MD-ORKevin 1 <*> Role Performed Surgeon/Proceduralist, First 1 <*> Time In 07/15/18 07:28:00 1 <*> Procedure Hip Total Anterior Approach 2 <*> Case Attendee Martha Torrez, RN 2 <*> Role Performed Remote Broadcast Technician, First 2 <*> Time In 07/15/18 07:28:00 [...] Approach 5 <*> Case Attendee Deedee Brown, Ethylbenzene Cracking Supervisor 5 <*> Role Performed Assistive Personnel 5 <*> Time In 07/15/18 07:28:00 5 <*> Procedure Hip Total Anterior Approach 6 <*> Case Attendee CLARITZA VEGAS, CSA 6 <*> Role Performed Camp Advisor, First 6 <*> Time In 07/15/18 07:28:00 6 <*> Procedure Hip Total Anterior Approach 7 <*> Case Attendee MAHAMED BE, PAC 7 <*> Role Performed Physician store assistant 7 <*> Time In 07/15/18 07:28:00 7 <*> Procedure Hip Total Anterior Approach 8 <*> Case Attendee OTHER, ATTENDEE 8 <*> Role Performed Vendor 8 <*> Time In 07/15/18 07:28:00 8 <*> Procedure Hip Total Anterior Approach 8 <-> Other Attendee JER DIXON 9 <*> Case Attendee Aysha Brooks, Wad Blanking Press Adjuster 9 <*> Role Performed Twisting Frame Fixer 9 <*> Time In 07/15/18 07:28:00 9 <*> Procedure Hip Total Anterior Approach 10 <*> Case Attendee CELSO QUISPE CRNA 10 <*> Role Performed FEED MANAGEMENT ADVISOR/Nurse Continuous Process Tanner Rotary Drum 10 <+> Time In 10 <*> Procedure Hip Total Anterior Approach 10 <+> Other Attendee 07/15/18 07:52:23 Chemical Waste Management Technician: KARLOS Modifier: KARLOS 1 <+> Time In [...] [facility] IntraOp Case Times Audit 07/15/18 09:35:17 Chemical Waste Management Technician: KARLOS Modifier: JORDYNBLAND <+> 1 Out Room Time <+> 1 Stop Time 07/15/18 09:08:56 Chemical Waste Management Technician: KARLOS Modifier: JORDYNBLAND <+> 1 Stop Time 07/15/18 08:01:26 Chemical Waste Management Technician: MARTHABLNITIN Modifier: JORDYNBLAND <+> 1 Start Time [...] [facility] IntraOp Counts Verification Audit 07/15/18 08:50:53 Chemical Waste Management Technician: KARLOS Modifier: SALENAAND <+> 2 Procedure <+> [...] RN 07/15/18 07:07:36 [facility] IntraOp General Case Supplemental Manager 1 Case Information OR OR 01 [facility] Case Level 1 Room Verified Yes Wound Class I - Clean Specialty SN Orthopedic Anesthesia Type General ASA Class 4 Diagnosis Preop Diagnosis DJD RIGHT HIP Postop Same As Preop No Postop Diagnosis DICTATED BY MD Last Modified By: Martha Torrez RN 07/15/18 07:53:11 E IntraOp General Case Data Audit 07/15/18 07:53:11 Chemical Waste Management Technician: KARLOS Modifier: KARLOS <+> 1 ASA Class <+> 1 Preop Diagnosis [facility] IntraOp Implant Log Entry 1 Entry 2 Entry 3 Type Implant (Synthetic) Implant (Synthetic) Implant (Synthetic) Implant Log Implant Type Hardware Hardware Hardware Tissue Implant Type Implant SHELL ACET LOGICAL 48MM LNER LGCL CP 50MM STEM HIP COXA CLLR Identification [id number] ORIGIN [id number] Description Implant Quantity 1 1 1 Implant Site RIGHT HIP RIGHT HIP RIGHT HIP Implant Identification Model Number Implant Identification Serial Number Implant [id number] Identification Lot Number Implant Paxeon Reconstruction Paxeon Reconstruction Paxeon Reconstruction Identification Sample Driller Name: Implant [id number] Identification Catalog Number Implant Size Implant Has an Yes Yes Yes Expiration Date Implant Expiration 06/10/23 02/08/23 04/11/23 Date Wasted Radioactive Material Time Implanted Tissue Implant Continue for Tissue Implant Documentation Tissue Identification Number Graft Prep Per Sample Driller Instructions: Tissue Preparation Method: Reconstitution Solution: Reconstitution Solution Lot Number Reconstitution Solution Expiration Date: Thawing Solution Thawing Solution Lot Number Thawing Solution Expiration Date Preparation Materials, Other Preparation Materials, Other Lot Number Preparation Materials, Other Expiration Date Tissue Prepared/Processed By Sample Driller Paperwork Completed Implant Type Comment Last Modified By: Martha Torrez RN Bland, Jordyn A, RN Bland, Jordyn A, RN 07/15/18 08:26:09 07/15/18 08:26:09 07/15/18 08:47:20 Entry 4 Type Implant (Synthetic) Implant Log Implant Type Hardware Tissue Implant Type Implant HEAD FEM CERC [id number] 32MM Identification [id number] Description Implant Quantity 1 Implant Site RIGHT HIP Implant Identification Model Number Implant Identification Serial Number Implant [id number] Identification Lot Number Implant Paxeon Reconstruction Identification Sample Driller Name: Implant [id number] Identification Catalog Number Implant Size Implant Has an Yes Expiration Date Implant Expiration 04/11/23 Date Wasted Radioactive Material Time Implanted Tissue Implant Continue for Tissue Implant Documentation Tissue Identification Number Graft Prep Per Sample Driller Instructions: Tissue Preparation Method: Reconstitution Solution: Reconstitution Solution Lot Number Reconstitution Solution Expiration Date: Thawing Solution Thawing Solution Lot Number Thawing Solution Expiration Date Preparation Materials, Other Preparation Materials, Other Lot Number Preparation Materials, Other Expiration Date Tissue Prepared/Processed By Sample Driller Paperwork Completed Implant Type Comment Last Modified By: Martha Torrez RN 07/15/18 08:47:20 [facility] IntraOp Implant Log Audit 07/15/18 08:47:20 Chemical Waste Management Technician: KARLOS Modifier: KARLOS <+> 3 Implant Identification Description <+> 3 Implant Identification Lot Number <+> 3 Implant Identification Sample Driller Name: <+> 3 Implant Expiration Date <+> 3 Implant Identification Catalog Number <+> 4 Implant Identification Description <+> 4 Implant Identification Lot Number <+> 4 Implant Identification Sample Driller Name: <+> 4 Implant Expiration Date <+> 4 Implant Identification Catalog Number 07/15/18 08:26:09 Chemical Waste Management Technician: KARLOS Modifier: KARLOS <+> 1 Implant Identification Description <+> 1 Implant Identification Lot Number <+> 1 Implant Identification Sample Driller Name: <+> 1 Implant Expiration Date <+> 1 Implant Identification Catalog Number <+> 2 Implant Identification Description <+> 2 Implant Identification Lot Number <+> 2 Implant Identification Sample Driller Name: <+> 2 Implant Expiration Date <+> 2 Implant Identification Catalog Number 07/15/18 07:54:53 Chemical Waste Management Technician: KARLOS Modifier: KARLOS <+> 3 Implant Site [...] vancomycin 1Gm vial - ANESTHETIC 1000MG/10 ML [id number] COCKTAIL-ROGER [id number] Combo Med List Time Administered Route of [...] Intra Op Sign Out Audit 07/15/18 09:35:26 Chemical Waste Management Technician: KARLOS Modifier: KARLOS <+> 1 RN Sign [...] [facility] IntraOp Surgical Procedures Audit 07/15/18 09:08:57 Chemical Waste Management Technician: KARLOS Modifier: KARLOS <+> 1 Start <+> [...] [facility] IntraOp Time Out Audit 07/15/18 08:01:30 Chemical Waste Management Technician: KARLOS Modifier: KARLOS 1 <+> Time Out Pause Time 1 <*> Procedure to be Performed Hip Total Anterior Approach 07/15/18 07:56:31 Chemical Waste Management Technician: KARLOS Modifier: KARLOS 1 <+> Beta Pat Administered 1 <*> Procedure to be Performed Hip Total Anterior Approach [facility] IntraOp X-Ray and Images Entry 1 X-Ray/Imaging Type Fluoroscopy Fluoroscopy Type C-Arm Site RIGHT HIP Note Specialist Name Aysha Brooks, Wad Blanking Press Adjuster Protective Devices Yes Used Last Modified By: Martha Torrez RN 07/15/18 07:56:43 Case Comments <None> Finalized By: Martha Torrez, RN Document Signatures Signed By: Martha Torrez RN 07/15/18 09:37 Electronically signed by Rosario [facility] Conversion Cloth Burler Cerner at 06/29/2022 1:20 PM CDT documented in this encounter Plan of Treatment Not on file documented as of this encounter Visit Diagnoses Not on filedocumented in this encounter
--- OUTSIDE RECORDS SUMMARY | 2024-08-22 09:13 | XMS_ITS | Encounter Summary ---
Author Organization [employer] Address [address] [place] [address] Care Team Providers Care Water Fabricator Operator Name Role Phone Unavailable Primary Care Provider Unavailabl e Encounter Details Date Type Department Care Team (Late st Contact Info) Description 07/15/2018 Transcribed Document [facility] [place] Medicine [place] [address] ProviderKristel MD [place] [address] Social History Tobacco Use Types [...] Obtained From : Patient Primary Language : Anguillan Preferred Communication Mode : Verbal Communication Barrier [...] Level : 46 or > High Risk [place] Fall Interventions : Adequate lighting, Bed in [...] : Refuses FDA approved medications Implant/Device Type, Forensic Social Worker and Model : left hip replacement, poss. [...] Source : Stated Height Entry Format : Harding Height, Feet : 5 ft(Converted to: 152 cm, 60 Inch) Height, Inches : 1 Inch(Converted to: 0 ft 1 Inch, 2.54 cm) Clinical Height : 154.94 cm Weight Source : Standing scale Weight Entry Format : Harding Clinical Dosing Weight : 63.18 kg Weight, Pounds : 139 lb Body Surface Area (BSA) : 1.62 m2 Body Mass Index : 26.3 kg/m2 (HI) [place] Body Weight : 47 kg Nilda Claros [...] 07/15/2018 16:39 EDT Electronically signed by Rosario [facility] Conversion Enroute Controller Cerner at 06/29/2022 1:19 PM CDT documented in this encounter Plan of Treatment Not on file documented as of this encounter Visit Diagnoses Not on filedocumented in this encounter
--- OUTSIDE RECORDS SUMMARY | 2024-08-22 09:13 | XMS_ITS | Encounter Summary ---
Author Organization [employer] Address [address] [place] [address] Care Team Providers Care Location And Measurement Technician Name Role Phone Unavailable Primary Care Provider Unavailabl e Encounter Details Date Type Department Care Team (Late st Contact Info) Description 07/19/2018 Transcribed Document [facility] [place] [facility] [place] [facility] [address] ProviderKristel MD [facility] [place] [address] Social History Tobacco Use Types [...]
--- OUTSIDE RECORDS SUMMARY | 2024-08-22 09:13 | XMS_ITS | Encounter Summary ---
Author Organization [employer] Address [address] [place] [address] Care Team Providers Care Financial Administration Officer Name Role Phone Unavailable Primary Care Provider Unavailabl e Encounter Details Date Type Department Care Team (Late st Contact Info) Description 07/16/2018 Transcribed Document [facility] [place] [facility] [place] [address] ProviderKristel MD [facility] [place] [address] Social History Tobacco Use Types [...] Kristel ProviderMD - 07/16/2018 12:09 [place] [address] CINDY LABOY :1945 Visit Time:07/15/2018 Your Visit Summary Your Care Team Admitting Physician - RONAL ROBERT MD Attending Physician - DEREK DURAN MD-ORT Primary Care Physician - RANDAL ALBARADO (REF)[facility] Referring Physician - DEREK DURAN MD-ORT Your Diagnosis S/P total hip arthroplasty Unilateral primary osteoarthritis, right hip, Unilateral primary osteoarthritis, right hip These Are Your Goals I want to mow the yard. Interventions: Work with PT Discharge Vitals Heart Rate 72 Blood Pressure 105/62 What to do next Instructions From Your Care Team [facility], PT WILL NEED TO INFORM HOME HEALTH DIRECTLY OF WHEN SHE WILL CHANGE 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 TO HER OWN HOME [phone] PT HAS ALL NEEDED DME Follow-Up Appointments Follow Up with JAIDEN LEBRON PA-C When 08/26/2018 10:00 AM EDT Comments Appointment has been made Where: [address] [facility] [address] [place] [address]- Follow Up with Follow up with primary [...] Barley. Bulgur wheat. Millet. Bran muffins. Popcorn. Lonepine wafer crackers. Vegetables Sweet potatoes. Spinach. Kale. Artichokes. Cabbage. Broccoli. Green peas. Carrots. Squash. Fruits Berries. Pears. Apples. Oranges. Avocados. Prunes and raisins. Dried figs. Meats and Other Protein Sources [place], kidney, christians[place], and soy beans. Split peas. [...] gabriel has 11 g of protein. ??? Cascade seeds ??? 1 oz has 5.5 g [...] floor. ??? Place frequently used items in qalq-tf-gwbgw places ??? Keep electrical cables out of [...] ??? Using the bathroom. ??? Using household reclamation worker or toxic chemicals. ??? Touching or taking [...] Assistance with quitting is available by contacting 2-448-XYSI-NOW. This is a free resource providing counseling, [...] Be sure to sign up for the [facility] patient portal, which gives you 02/10 access to your medical information ??? including these discharge instructions ??? using your computer, smartphone, or tablet. Just go to [employer] to get started. Questions? Call . Test [...] was given the opportunity to ask questions. Patient/Manager Art Name: Patient/Manager Art Signature: Relationship to Patient: Clinician/Hospital Manager Art Signature: Date: documented in this encounter Plan of Treatment Not on file documented as of this encounter Visit Diagnoses Not on filedocumented in this encounter
--- OUTSIDE RECORDS SUMMARY | 2024-08-22 09:13 | XMS_ITS | Encounter Summary ---
Author Organization [employer] Address [address] [place] [address] Care Team Providers Care Inspector Crystal Name Role Phone Unavailable Primary Care Provider Unavailabl e Encounter Details Date Type Department Care Team (Late st Contact Info) Description 07/22/2018 Transcribed Document [facility] [place] Family Medicine [facility] [place] [address] ProviderKristel MD [facility] [place] [address] Social History Tobacco Use Types [...] Policy Numbers : Insurance 1 Health Plan: [employer] PPO Policy Number: [id number] Authorization Number: [id number] Insurance Primary Name : [email or web address] Medicare Authorization Status-Primary : Notification only Reference Number-Primary : [id number] Authorization Number-Primary : [id number] Authorized Service Begin Date-Primary : 07/15/2018 EDT Authorization Comments-Primary : approved per availity for inpt Historical Authorization Comments-Primary : Comment 1: Uploaded clinicals to [employer] via [employer]Wave Interactivener by . (ERICK JONES RN-Utilization Review 07/15/2018 15:49) LYNN REID RN-Utilization Review - 07/22/2018 12:50 EDT documented in this encounter Plan of Treatment Not on file documented as of this encounter Visit Diagnoses Not on filedocumented in this encounter
--- OUTSIDE RECORDS SUMMARY | 2024-08-22 09:13 | XMS_ITS | Encounter Summary ---
Author Organization [employer] Address [address] [place] [address] Care Team Providers Care Revenue Research Analyst Name Role Phone Unavailable Primary Care Provider Unavailabl e Encounter Details Date Type Department Care Team (Late st Contact Info) Description 07/15/2018 Transcribed Document [facility] Radiology 1 [place] [address] Ronal Robert MD [address] [place] [address] [address] [id number] Social History Tobacco Use Types Packs/Day Years [...] None. Primary Care Provider RANDAL ALBARADO MD (REF)-[facility] Chief Complaint Right hip pain History of [...] Medical SVT (supraventricular tachycardia) / SNOMED CT 79474541 / Confirmed Hypertension / SNOMED CT 9036019051 / Confirmed Hypothyroidism / SNOMED CT 53104202 / Confirmed Anxiety disorder / SNOMED CT 851885150 / Confirmed COPD (chronic obstructive pulmonary disease) / SNOMED CT 62548189 / Confirmed Osteoarthritis / SNOMED CT 9575117871 / Confirmed Hyperlipidemia / SNOMED CT 85155086 / Confirmed At risk for sleep apnea / IMO 53873017 / Confirmed, Active Problems (8) Anxiety disorder At risk for sleep apnea COPD (chronic obstructive pulmonary disease) Hyperlipidemia Hypertension Hypothyroidism Osteoarthritis SVT (supraventricular tachycardia) Histories Past Medical History: Active Problems (8) Anxiety disorder At risk for sleep apnea COPD (chronic obstructive pulmonary disease) Hyperlipidemia Hypertension Hypothyroidism Osteoarthritis SVT (supraventricular tachycardia) Family History: Significant for cancer Procedure history: Thyroidectomy (41347571). Tonsillectomy (430605681). Cholecystectomy (60392310). Tubal ligation (921127613). - Spontaneous vaginal delivery. left hip replacment. [...]
--- OUTSIDE RECORDS SUMMARY | 2024-08-22 09:13 | XMS_ITS | Encounter Summary ---
Author Organization [employer] Address [address] [place] [address] Care Team Providers Care Inventory Control Specialist Name Role Phone Unavailable Primary Care Provider Unavailabl e Encounter Details Date Type Department Care Team (Late st Contact Info) Description 07/16/2018 Transcribed Document [facility] 1 [place] [address] Raj Ching MD [address] [place] [address] [address] [place] [id number] Social History Tobacco Use Types Packs/Day Years [...] Signature: __Cadence perez RN DS Phone #: __[phone] This is a permanent part of the Medical Record documented in this encounter Plan of Treatment Not on file documented as of this encounter Visit Diagnoses Not on filedocumented in this encounter
--- OUTSIDE RECORDS SUMMARY | 2024-08-22 09:13 | XMS_ITS | Encounter Summary ---
Author Organization [employer] Address [address] [place] [address] Care Team Providers Care Labor Relations Director Name Role Phone Unavailable Primary Care Provider Unavailabl e Encounter Details Date Type Department Care Team (Late st Contact Info) Description 07/16/2018 Transcribed Document [facility] 1 [place] [address] Ronal Robert MD [address] [place] [address] [place] [address] Social History Tobacco Use Types Packs/Day Years [...] QHS Primary Care Provider RANDAL ALBARADO (REF), -[facility] Time spent 35 minutes documented in this encounter Plan of Treatment Not on file documented as of this encounter Visit Diagnoses Not on filedocumented in this encounter
--- OUTSIDE RECORDS SUMMARY | 2024-08-22 09:13 | XMS_ITS | Encounter Summary ---
Author Organization [email or web address] Address [address] [place] [address] Care Team Providers Care Commodity Specialist Name Role Phone Unavailable Primary Care Provider Unavailabl e Encounter Details Date Type Department Care Team (Late st Contact Info) Description 07/15/2018 Transcribed Document [facility] [place] [facility] [place] [address] ProviderKristel MD [facility] [place] [address] Social History Tobacco Use Types [...] Source : Stated Height Entry Format : [place] Height, Feet : 5 ft(Converted to: 152 cm, 60 Inch) Height, Inches : 1 Inch(Converted to: 0 ft 1 Inch, 2.54 cm) Clinical Height : 154.94 cm Weight Source : Standing scale Weight Entry Format : [place] Clinical Dosing Weight : 63.18 kg Weight, Pounds : 139 lb Body Surface Area (BSA) : 1.62 m2 Body Mass Index : 26.3 kg/m2 (HI) [place] Body Weight : 47 kg Nicole Coley Rn - 07/15/2018 6:34 EDT Health Histories Smoking Status : 10 or more cigarettes (1/2 pack or more)/day in last 30 days Smokeless Tobacco Status : Never Desires Tobacco Cessation Medication : No Reason for No Tobacco Cessation Medication : Refuses FDA approved medications Implant/Device Type, Manager Utilization Management and Model : left hip replacement, poss. [...] Obtained From : Patient Primary Language : Bangladeshi Preferred Communication Mode : Verbal Communication Barrier [...] Scale Risk Level : 25-45 Medium Risk [place] Fall Interventions : Adequate lighting, Bed in [...] rendition version of the form. Maggi Coma [place] Best Motor Response : Obey commands [place] Best Verbal Response : Oriented [place] Eye Opening Response : Spontaneous Maggi Coma Score : 15 Nicole Coley Rn - 07/15/2018 6:34 EDT documented in this encounter Plan of Treatment Not on file documented as of this encounter Visit Diagnoses Not on filedocumented in this encounter
--- OUTSIDE RECORDS SUMMARY | 2024-08-22 09:13 | XMS_ITS | Referral Summary ---
Author Organization [employer] Address [address] [place] [address] Care Team Providers Care Structural Welder Name Role Phone Unavailable Primary Care Provider [...] Date Bryson rded Speak language other than Bulgarian at home Not on file 03/30/2023 Want [...]
--- OUTSIDE RECORDS SUMMARY | 2024-08-22 09:13 | XMS_ITS | Encounter Summary ---
Author Organization [email or web address] Address [address] [place] [address] Care Team Providers Care Membership Advisor Name Role Phone Unavailable Primary Care Provider Unavailabl e Encounter Details Date Type Department Care Team (Late st Contact Info) Description 07/15/2018 Transcribed Document [facility] [place] [facility] [place] [address] ProviderKristel MD [facility] [place] [address] Social History Tobacco Use Types [...] Policy Numbers : Insurance 1 Health Plan: [employer] PPO Policy Number: [id number] Authorization Number: [id number] Insurance Primary Name : [employer] Medicare Authorization Status-Primary : Awaiting callback Authorization Number-Primary : [id number] Authorized Service Begin Date-Primary : 07/15/2018 EDT [...]
--- OUTSIDE RECORDS SUMMARY | 2024-08-22 09:13 | XMS_ITS | Encounter Summary ---
Author Organization [employer] Address [address] [place] [address] Care Team Providers Care Assembly Repairer Name Role Phone Unavailable Primary Care Provider Unavailabl e Encounter Details Date Type Department Care Team (Late st Contact Info) Description 07/15/2018 Transcribed Document [facility] [place] Family Medicine [facility] [place] [address] ProviderKristel MD [facility] [place] [address] Social History Tobacco Use Types [...] LABOY /Sex: 1945 Female Med Rec #: [id number] Physician: DEREK DURAN MD-ORT Financial #: [id number] Pt. Type: I Room/Bed: 3/ Admit/Disch: 07/15/18 04:51:00 - Institution: [facility] [place] PreOp Case Times Entry 1 In Preop 07/15/18 05:40:00 Ready for Holding n/a Room Patient Ready for 07/15/18 07:12:00 Surgery Patient Out of Preop 07/15/18 07:25:00 Patient Out of n/a Holding Room Last Modified By: CHADWICK CHAN 07/15/18 12:29:59 SHARAN PreOp Case Times Audit 07/15/18 12:29:59 Senior Clinical Consultant: MAY Modifier: CATLETDD <+> 1 Patient Out of Preop Finalized By: CHADWICK CHAN Document Signatures Signed By: CHADWICK CHAN 07/15/18 12:30 documented in this encounter Plan of Treatment Not on file documented as of this encounter Visit Diagnoses Not on filedocumented in this encounter
--- OUTSIDE RECORDS SUMMARY | 2024-08-22 09:13 | XMS_ITS | Encounter Summary ---
Author Organization [employer] Address [address] [place] [address] Care Team Providers Care Structural Steel Painter Name Role Phone Unavailable Primary Care Provider Unavailabl e Encounter Details Date Type Department Care Team (Late st Contact Info) Description 06/28/2018 Transcribed Document [facility] [place] Family Medicine [facility] [place] [address] ProviderKristel MD [facility] [place] [address] Social History Tobacco Use Types [...] CLARISSA GUERRERO, RN - 06/28/2018 9:57 EDT documented in this encounter Plan of Treatment Not on file documented as of this encounter Visit Diagnoses Not on filedocumented in this encounter
--- OUTSIDE RECORDS SUMMARY | 2024-08-22 09:13 | XMS_ITS | Encounter Summary ---
Author Organization [employer] Address [address] [place] [address] Care Team Providers Care Golf Starter And Ranger Name Role Phone Unavailable Primary Care Provider Grady peres Encounter Details Date Type Department Care Team (Late st Contact Info) Description 07/16/2018 Transcribed Document [facility] [place] Family Medicine [facility] [place] [address] ProviderKristel MD [facility] [place] [address] Social History Tobacco Use Types [...]
--- OUTSIDE RECORDS SUMMARY | 2024-08-22 09:13 | XMS_ITS | Encounter Summary ---
Author Organization [employer] Address [address] [place], [place] [id number] Care Team Providers Care Court Worker Name Role Phone Unavailable Primary Care Provider Grady peres Encounter Details Date Type Department Care Team (Late st Contact Info) Description 07/16/2018 Transcribed Document [facility] [place] [facility] [place] [address] ProviderKristel MD [facility] [place] [address] Social History Tobacco Use Types [...] Historical ProviderMD - 07/16/2018 2:00 AM CDT Material Specialist Details Entered On: 07/16/2018 2:49 EDT Performed [...] Karina Zimmer LPN - 07/16/2018 2:48 EDT Electronically signed by Tatiana Ponce Conversion Petroleum Blending Plant Operator Cerner at 06/29/2022 1:34 PM CDT documented in this encounter Plan of Treatment Not on file documented as of this encounter Visit Diagnoses Not on filedocumented in this encounter
--- OUTSIDE RECORDS SUMMARY | 2024-08-22 09:13 | XMS_ITS | Encounter Summary ---
Author Organization [employer] Address [address] [place] [address] Care Team Providers Care Vet Tech Name Role Phone Unavailable Primary Care Provider Unavailabl e Encounter Details Date Type Department Care Team (Late st Contact Info) Description 07/16/2018 Transcribed Document [facility] [place] [facility] [place] [address] ProviderKristel MD [address] [place] [address] Social History Tobacco Use Types Packs/Day Years [...]
--- OUTSIDE RECORDS SUMMARY | 2024-08-22 09:13 | XMS_ITS | Encounter Summary ---
Author Organization [employer] Address [address] [place] [address] Care Team Providers Care Ocean Export Agent Name Role Phone Unavailable Primary Care Provider Unavailabl e Encounter Details Date Type Department Care Team (Late st Contact Info) Description 07/16/2018 Transcribed Document [facility] [place] [facility] [place] [address] ProviderKristel MD [address] [place] [address] Social History Tobacco Use Types Packs/Day [...] 07/16/2018 9:54 EDT by NAYA MINOR, Care Management-Building Construction Ironworker Care Management Progress Note Discharge Arrangements : [...] Acute Providers : Yes NAYA MINOR, Care Management-Building Construction Ironworker - 07/16/2018 9:54 EDT Electronically signed by Rosario, [facility] [place] Conversion Soap Drier Operator Cerner at 06/29/2022 1:33 PM CDT documented in this encounter Plan of Treatment Not on file documented as of this encounter Visit Diagnoses Not on filedocumented in this encounter
--- OUTSIDE RECORDS SUMMARY | 2024-08-22 09:13 | XMS_ITS | Encounter Summary ---
Author Organization [employer] Address [address] [place] [address] Care Team Providers Care Fruit Buyer Name Role Phone Unavailable Primary Care Provider Grady peres Encounter Details Date Type Department Care Team (Late st Contact Info) Description 07/15/2018 Transcribed Document [facility] [place] [facility] [place] [address] ProviderKristel MD [address] [place] [address] Social History Tobacco Use Types Packs/Day [...]
--- OUTSIDE RECORDS SUMMARY | 2024-08-22 09:14 | XMS_ITS | Encounter Summary ---
Author Organization [employer] Address [address] [place] [address] Care Team Providers Care Act Tutor Name Role Phone Unavailable Primary Care Provider Unavailabl e Encounter Details Date Type Department Care Team (Late st Contact Info) Description 07/16/2018 Transcribed Document [facility] [place] Family Medicine [facility] [place] [address] ProviderKristel MD [address] [place] [address] Social History Tobacco Use Types Packs/Day [...] EDT Hct 35.1 % 07/15/2018 09:23 EDT Electronically signed by Tatiana Ponce Conversion Licensed Psychiatric Technician Cerner at 06/29/2022 1:22 PM CDT documented in this encounter Plan of Treatment Not on file documented as of this encounter Visit Diagnoses Not on filedocumented in this encounter
--- OUTSIDE RECORDS SUMMARY | 2024-08-22 09:14 | XMS_ITS | Encounter Summary ---
Author Organization [email or web address] Address [address] [place] [address] Care Team Providers Care Health Care Coordinator Name Role Phone Unavailable Primary Care Provider Unavailabl e Encounter Details Date Type Department Care Team (Late st Contact Info) Description 07/16/2018 Transcribed Document [facility] [place] [facility] [place] [address] ProviderKristel MD [address] [place] [address] Social History Tobacco Use Types [...] Barley. Bulgur wheat. Millet. Bran muffins. Popcorn. [place] wafer crackers. Vegetables Sweet potatoes. Spinach. Kale. Artichokes. Cabbage. Broccoli. Green peas. Carrots. Squash. Fruits Berries. Pears. Apples. Oranges. Avocados. Prunes and raisins. Dried figs. Meats and Other Protein Sources [place], kidney, [place], and soy beans. Split peas. [...] gabriel has 11 g of protein. ?? [place] seeds ??? 1 oz has 5.5 g [...] floor. ?? Place frequently used items in clhn-ik-kwsaw places ?? Keep electrical cables out of [...] ?? Using the bathroom. ?? Using household catcher helper or toxic chemicals. ?? Touching or taking [...]
--- OUTSIDE RECORDS SUMMARY | 2024-08-22 09:14 | XMS_ITS | Encounter Summary ---
Author Organization [employer] Address [address] [place] [address] Care Team Providers Care Bonding Agent Name Role Phone Unavailable Primary Care Provider Grady peres Encounter Details Date Type Department Care Team (Late st Contact Info) Description 07/16/2018 Transcribed Document [facility] [place] [facility] [place] [address] ProviderKristel MD [address] [place] [address] Social History Tobacco Use Types Packs/Day [...] Karina Zimmer LPN - 07/16/2018 5:32 EDT Electronically signed by Tatiana Ponce Conversion Medical Receptionist Medical Assistant Cerner at 06/29/2022 1:21 PM CDT documented in this encounter Plan of Treatment Not on file documented as of this encounter Visit Diagnoses Not on filedocumented in this encounter
--- OUTSIDE RECORDS SUMMARY | 2024-08-22 09:14 | XMS_ITS | Encounter Summary ---
Author Organization [employer] Address [address] [place] [address] Care Team Providers Care Blueprint Cutter Name Role Phone Unavailable Primary Care Provider Unavailabl e Encounter Details Date Type Department Care Team (Late st Contact Info) Description 07/16/2018 Transcribed Document [facility] [place] [facility] [place] [address] ProviderKristel MD [facility] [place] [address] Social History Tobacco Use Types [...] Kristel ProviderMD - 07/16/2018 12:10 [place] [address] CINDY LABOY :1945 Visit Time:07/15/2018 Your Visit Summary Your Care Team Admitting Physician - RONAL ROBERT MD Attending Physician - DEREK DURAN MD-ORT Primary Care Physician - RANDAL ALBARADO (REF)MD-[facility] Referring Physician - DEREK DURAN MD-ORT Your Diagnosis S/P total hip arthroplasty Unilateral primary osteoarthritis, right hip, Unilateral primary osteoarthritis, right hip These Are Your Goals I want to mow the yard. Interventions: Work with PT Discharge Vitals Heart Rate 72 Blood Pressure 105/62 What to do next Instructions From Your Care Team [facility], PT WILL NEED TO INFORM HOME HEALTH DIRECTLY OF WHEN SHE WILL CHANGE 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 TO HER OWN HOME [phone] PT HAS ALL NEEDED DME Follow-Up Appointments Follow Up with JAIDEN LEBRON PA-C When 08/26/2018 10:00 AM EDT Comments Appointment has been made Where: [address] [facility] [address] [place] [address]- Follow Up with Follow up with primary [...] Barley. Bulgur wheat. Millet. Bran muffins. Popcorn. [place] wafer crackers. Vegetables Sweet potatoes. Spinach. Kale. Artichokes. Cabbage. Broccoli. Green peas. Carrots. Squash. Fruits Berries. Pears. Apples. Oranges. Avocados. Prunes and raisins. Dried figs. Meats and Other Protein Sources [place], kidney, [place], and soy beans. Split peas. Lentils. Nuts [...] gabriel has 11 g of protein. ??? [place] seeds ??? 1 oz has 5.5 g [...] floor. ??? Place frequently used items in bwqk-vr-wxpbo places ??? Keep electrical cables out of [...] ??? Using the bathroom. ??? Using household topstitcher zigzag or toxic chemicals. ??? Touching or taking [...] Assistance with quitting is available by contacting 6-999-ICRD-NOW. This is a free resource providing counseling, [...] computer, smartphone, or tablet. Just go to [employer] to get started. Questions? Call . Test [...] was given the opportunity to ask questions. Patient/Strap Machine Operator Automatic Name: Patient/Strap Machine Operator Automatic Signature: Relationship to Patient: Clinician/Hospital Strap Machine Operator Automatic Signature: Date: documented in this encounter Plan of Treatment Not on file documented as of this encounter Visit Diagnoses Not on filedocumented in this encounter
--- OUTSIDE RECORDS SUMMARY | 2024-08-22 09:14 | XMS_ITS | Encounter Summary ---
Author Organization [email or web address] Address [address] [place] [address] Care Team Providers Care Director Of Research Name Role Phone Unavailable Primary Care Provider Unavailabl e Encounter Details Date Type Department Care Team (Late st Contact Info) Description 07/16/2018 Transcribed Document [facility] [place] [address] ProviderKristel MD [place] [address] Social History Tobacco Use Types [...] 07/16/2018 9:53 EDT by NAYA MINOR, Care Management-Manager Of Application Development Initial Assessment I Previously Documented Living Environment : No qualifying data available. Living Situation : Home Patient Lives With : Alone Emergency Contact #1 : Sera Emergency Contact #1 Emergency Contact #1 Relationship : daughter Emergency Contact #2 : Nae Emergency Contact #2 Emergency Contact #2 Relationship : daughter NAYA MINOR Care Management-Manager Of Application Development - 07/16/2018 9:53 EDT Initial Assessment II Sensory and Motor Deficits : Other: AYESHA Current Home Treatments and Equipment : Bedside commode, Shower chair, Walker NAYA MINOR Care Management-Manager Of Application Development - 07/16/2018 9:53 EDT Discharge Needs I Anticipated Discharge Date : 07/16/2018 EDT Anticipated Discharge To, CM : Home with home health Current Home Treatment/Equipment : Current Home Treatment/Equipment No qualifying data available. NAYA MINOR, Care Management-Manager Of Application Development - 07/16/2018 9:53 EDT Discharge Needs II Professional Skilled Services : Professional Skilled Services No qualifying data available. Services and Community Resources : Home Health Needs Assistance with Transportation : No Discharge Options Discussed with Patient : [facility] [place] NAYA MINOR Care Management-Manager Of Application Development - 07/16/2018 9:53 EDT documented in this encounter Plan of Treatment Not on file documented as of this encounter Visit Diagnoses Not on filedocumented in this encounter
--- NOTE | 2024-08-22 09:15 | US_ITS ---
FINAL REPORT TECHNIQUE: Ultrasound images of the abdominal aorta were obtained. CLINICAL HISTORY: AAA FINDINGS: ULTRASOUND OF THE ABDOMINAL AORTA The infrarenal abdominal aorta measures up to 4.9 x 4.6 cm. The iliacs also appear enlarged. IMPRESSION: Infrarenal abdominal aortic aneurysm with the apparent enlargement of the iliac vessels. Infused abdomen and pelvic CT is highly recommended for further characterization. Reviewed, Interpreted and Dictated by Deandre Rich MD Transcribed by Carla Yang Authenticated and [facility]
--- NOTE | 2024-08-22 09:48 | US_ITS ---
FINAL REPORT TECHNIQUE: Ultrasound images of the kidneys and bladder were obtained. CLINICAL HISTORY: ABNORMAL RENAL FUNCTION FINDINGS: The right kidney measures 11.6 cm in length. It is normal in echogenicity. There is no hydronephrosis. The left kidney measures 11.9 cm in length. It is normal in echogenicity. There is no hydronephrosis. The spleen is unremarkable. IMPRESSION: Unremarkable renal ultrasound. Reviewed, Interpreted and Dictated by Deandre Rich MD Transcribed by Becca Harmon Authenticated and [facility]
== END 2024-08-22 23:59 | disposition home or self-care (01) ==
LOC: RAD 09:11
PROVIDERS: PCP Nurse Practitioner Family; Visit Provider Nurse Practitioner Family
DX: I71.43 Infrarenal abdominal aortic aneurysm, without rupture (principal); I72.3 Aneurysm of iliac artery; I11.0 Hypertensive heart disease with heart failure; I50.33 Acute on chronic diastolic (congestive) heart failure; I49.3 Ventricular premature depolarization; R94.4 Abnormal results of kidney function studies
CPT/HCPCS: 76706; 76770

== ENCOUNTER 2024-09-03 13:38 | Outpatient (CLI) | payer MEDICARE, MEDICAID, SELFPAY ==
--- OUTSIDE RECORDS SUMMARY | 2024-09-03 13:42 | XMS_ITS | Encounter Summary ---
Author Organization [employer] i[employer] Address [address] [place] [address] Care Team Providers Care Auto Glass Worker Name Role Phone Unavailable Primary Care Provider Unavailabl e Encounter Details Date Type Department Care Team (Late st Contact Info) Description 07/15/2018 Transcribed Document [facility] [place] Family Medicine [place] [address] ProviderKristel MD [place] [address] Social History Tobacco Use Types [...] Obtained From : Patient Primary Language : Citizen Of [place] Preferred Communication Mode : Verbal Communication Barrier [...] Level : 46 or > High Risk [place] Fall Interventions : Adequate lighting, Bed in [...] : Refuses FDA approved medications Implant/Device Type, Pneumatic Jacketer and Model : left hip replacement, poss. [...] Source : Stated Height Entry Format : [place] Height, Feet : 5 ft(Converted to: 152 cm, 60 Inch) Height, Inches : 1 Inch(Converted to: 0 ft 1 Inch, 2.54 cm) Clinical Height : 154.94 cm Weight Source : Standing scale Weight Entry Format : [place] Clinical Dosing Weight : 63.18 kg Weight, Pounds : 139 lb Body Surface Area (BSA) : 1.62 m2 Body Mass Index : 26.3 kg/m2 (HI) [place] Body Weight : 47 kg Nilda Claros [...] 07/15/2018 16:39 EDT Electronically signed by Rosario [facility] Conversion Studio Coordinator Cerner at 06/29/2022 1:19 PM CDT documented in this encounter Plan of Treatment Not on file documented as of this encounter Visit Diagnoses Not on filedocumented in this encounter
--- OUTSIDE RECORDS SUMMARY | 2024-09-03 13:42 | XMS_ITS | Encounter Summary ---
Author Organization [employer] iatYuMingle Address [address] [place] [address] Care Team Providers Care Roving Winder Name Role Phone Unavailable Primary Care Provider Unavailabl e Encounter Details Date Type Department Care Team (Late st Contact Info) Description 07/15/2018 Transcribed Document [facility] [place] [facility] [place] [address] ProviderKristel MD [address] [place] [address] Social History Tobacco Use Types Packs/Day [...] Assist, minimal Toileting Device : Commode, bedside, [id number] commode Toilet Transfer Assist Level : Assist, [...] OSCAR FRANZ OTR/L - 07/15/2018 12:28 EDT Rn Night Goals, OT Other LTG Grid Goal #1 [...] 07/15/2018 12:28 EDT Electronically signed by Rosario, [facility] Conversion Alcohol Rubber Cerner at 06/29/2022 1:44 PM CDT documented in this encounter Plan of Treatment Not on file documented as of this encounter Visit Diagnoses Not on filedocumented in this encounter
--- OUTSIDE RECORDS SUMMARY | 2024-09-03 13:42 | XMS_ITS | Encounter Summary ---
Author Organization [employer] Address [address] [place] [address] Care Team Providers Care Enrollment Consultant Name Role Phone Unavailable Primary Care Provider Unavailabl e Encounter Details Date Type Department Care Team (Late st Contact Info) Description 07/15/2018 Transcribed Document [facility] Radiology 1 [place] [address] Ronal Robert MD [address] [place] [address] [address] [id number] Social History Tobacco Use Types Packs/Day Years [...] None. Primary Care Provider RANDAL ALBARADO MD (REF)-[facility] Chief Complaint Right hip pain History [...] Medical SVT (supraventricular tachycardia) / SNOMED CT 54359869 / Confirmed Hypertension / SNOMED CT 9619662279 / Confirmed Hypothyroidism / SNOMED CT 67695569 / Confirmed Anxiety disorder / SNOMED CT 555478489 / Confirmed COPD (chronic obstructive pulmonary disease) / SNOMED CT 55120316 / Confirmed Osteoarthritis / SNOMED CT 9622215356 / Confirmed Hyperlipidemia / SNOMED CT 17390960 / Confirmed At risk for sleep apnea / IMO 58032058 / Confirmed, Active Problems (8) Anxiety disorder At risk for sleep apnea COPD (chronic obstructive pulmonary disease) Hyperlipidemia Hypertension Hypothyroidism Osteoarthritis SVT (supraventricular tachycardia) Histories Past Medical History: Active Problems (8) Anxiety disorder At risk for sleep apnea COPD (chronic obstructive pulmonary disease) Hyperlipidemia Hypertension Hypothyroidism Osteoarthritis SVT (supraventricular tachycardia) Family History: Significant for cancer Procedure history: Thyroidectomy (21672998). Tonsillectomy (698241232). Cholecystectomy (01231102). Tubal ligation (786176869). - Spontaneous vaginal delivery. left hip replacment. [...]
--- OUTSIDE RECORDS SUMMARY | 2024-09-03 13:42 | XMS_ITS | Encounter Summary ---
Author Organization [employer] i[employer]pozy Address [address] [place] [address] Care Team Providers Care Claims Collector Name Role Phone Unavailable Primary Care Provider Unavailabl e Encounter Details Date Type Department Care Team (Late st Contact Info) Description 07/15/2018 Transcribed Document [facility] [place] [facility] [place] [address] ProviderKristel MD [address] [place] [address] Social History Tobacco Use Types Packs/Day [...] 07/15/2018 6:15 EDT by Earlene Sheriff Patient Fisher Clam Height and Weight, Clinical Dosing Height Source : Stated Height Entry Format : [place] Height, Feet : 5 ft(Converted to: 152 cm, 60 Inch) Height, Inches : 1 Inch(Converted to: 0 ft 1 Inch, 2.54 cm) Clinical Height : 154.94 cm Weight Source : Standing scale Weight Entry Format : [place] Clinical Dosing Weight : 63.18 kg Weight, Pounds : 139 lb Body Surface Area (BSA) : 1.62 m2 Body Mass Index : 26.3 kg/m2 (HI) [place] Body Weight : 47 kg Earlene Sheriff Patient Fisher Clam - 07/15/2018 6:15 EDT documented in this encounter Plan of Treatment Not on file documented as of this encounter Visit Diagnoses Not on filedocumented in this encounter
--- OUTSIDE RECORDS SUMMARY | 2024-09-03 13:42 | XMS_ITS | Encounter Summary ---
Author Organization [employer] iat[employer]n Address [address] [place] [address] Care Team Providers Care Custom Leather Products Maker Name Role Phone Unavailable Primary Care Provider Unavailabl e Encounter Details Date Type Department Care Team (Late st Contact Info) Description 06/28/2018 Transcribed Document [facility] [place] Family Medicine [facility] [place] [address] ProviderKristel MD [facility] [place] [address] Social History Tobacco Use Types [...] EDT Electronically signed by Tatiana Ponce Conversion Community Reinvestment Act Officer Cerremy at 06/29/2022 1:40 PM CDT documented in this encounter Plan of Treatment Not on file documented as of this encounter Visit Diagnoses Not on filedocumented in this encounter
--- OUTSIDE RECORDS SUMMARY | 2024-09-03 13:42 | XMS_ITS | Encounter Summary ---
Author Organization [employer] iatBirchbox Address [address] [place] [address] Care Team Providers Care Workers' Compensation Claims Examiner Name Role Phone Unavailable Primary Care Provider Unavailabl e Encounter Details Date Type Department Care Team (Late st Contact Info) Description 07/15/2018 Transcribed Document [facility] [place] Family Medicine [facility] [place] [address] ProviderKristel MD [address] [place] [address] Social History Tobacco Use Types Packs/Day [...]
--- OUTSIDE RECORDS SUMMARY | 2024-09-03 13:42 | XMS_ITS | Encounter Summary ---
Author Organization [employer] iatTruminim Address [address] [place] [address] Care Team Providers Care Hotel Services Supervisor Name Role Phone Unavailable Primary Care Provider Unavailabl e Encounter Details Date Type Department Care Team (Late st Contact Info) Description 07/15/2018 Transcribed Document [facility] [place] [address] ProviderKristel MD [place] [address] Social History Tobacco Use Types [...] Source : Stated Height Entry Format : [place] Height, Feet : 5 ft(Converted to: 152 cm, 60 Inch) Height, Inches : 1 Inch(Converted to: 0 ft 1 Inch, 2.54 cm) Clinical Height : 154.94 cm Weight Source : Standing scale Weight Entry Format : [place] Clinical Dosing Weight : 63.18 kg Weight, Pounds : 139 lb Body Surface Area (BSA) : 1.62 m2 Body Mass Index : 26.3 kg/m2 (HI) [place] Body Weight : 47 kg Nicole Coley Rn - 07/15/2018 6:34 EDT Health Histories Smoking Status : 10 or more cigarettes (1/2 pack or more)/day in last 30 days Smokeless Tobacco Status : Never Desires Tobacco Cessation Medication : No Reason for No Tobacco Cessation Medication : Refuses FDA approved medications Implant/Device Type, Die Assembler and Model : left hip replacement, poss. [...] Obtained From : Patient Primary Language : Maltese Preferred Communication Mode : Verbal Communication Barrier [...] Scale Risk Level : 25-45 Medium Risk [place] Fall Interventions : Adequate lighting, Bed in [...] rendition version of the form. Maggi Coma [place] Best Motor Response : Obey commands [place] Best Verbal Response : Oriented [place] Eye Opening Response : Spontaneous Maggi Coma Score : 15 Nicole Coley Rn - 07/15/2018 6:34 EDT documented in this encounter Plan of Treatment Not on file documented as of this encounter Visit Diagnoses Not on filedocumented in this encounter
--- OUTSIDE RECORDS SUMMARY | 2024-09-03 13:42 | XMS_ITS | Encounter Summary ---
Author Organization [employer] [email or web address] Address [address] [place] [address] Care Team Providers Care Music Publisher Name Role Phone Unavailable Primary Care Provider Unavailabl e Encounter Details Date Type Department Care Team (Late st Contact Info) Description 07/15/2018 Transcribed Document [facility] [place] [address] ProviderKristel MD [address] [place] [address] Social History Tobacco Use Types Packs/Day [...] NIRU AIKEN PT - 07/16/2018 10:39 EDT Alf Goals Other PT LTG Grid Goal #1 [...]
--- OUTSIDE RECORDS SUMMARY | 2024-09-03 13:42 | XMS_ITS | Encounter Summary ---
Author Organization [employer] Address [address] [place] [address] Care Team Providers Care Stockroom Attendant Name Role Phone Unavailable Primary Care Provider Unavailabl e Encounter Details Date Type Department Care Team (Late st Contact Info) Description 07/16/2018 Transcribed Document [facility] [place] Family Medicine [facility] [place] [address] ProviderKristel MD [address] [place] [address] Social History Tobacco Use Types Packs/Day [...]
--- OUTSIDE RECORDS SUMMARY | 2024-09-03 13:42 | XMS_ITS | Encounter Summary ---
Author Organization [employer] [email or web address] Address [address] [place] [address] Care Team Providers Care Price Checker Name Role Phone Unavailable Primary Care Provider Unavailabl e Encounter Details Date Type Department Care Team (Late st Contact Info) Description 07/19/2018 Transcribed Document [facility] [place] Family Medicine [facility] [place] [address] ProviderKristel MD [facility] [place] [address] Social History Tobacco Use Types [...] MICHELLE KAY, RN - 07/19/2018 10:31 EDT Electronically signed by Tatiana Ponce Conversion Tangible Personal Property Appraiser Cerner at 06/29/2022 1:31 PM CDT documented in this encounter Plan of Treatment Not on file documented as of this encounter Visit Diagnoses Not on filedocumented in this encounter
--- OUTSIDE RECORDS SUMMARY | 2024-09-03 13:42 | XMS_ITS | Encounter Summary ---
Author Organization [employer] iatInnovacene Address [address] [place] [address] Care Team Providers Care Event Attendant Name Role Phone Unavailable Primary Care Provider Grady peres Encounter Details Date Type Department Care Team (Late st Contact Info) Description 07/15/2018 Transcribed Document [facility] [place] [facility] [place] [address] ProviderKristel MD [address] [place] [address] Social History Tobacco Use Types Packs/Day [...]
--- OUTSIDE RECORDS SUMMARY | 2024-09-03 13:42 | XMS_ITS | Encounter Summary ---
Author Organization [employer] i[employer] Address [address] [place] [address] Care Team Providers Care Refinery Technician Name Role Phone Unavailable Primary Care Provider Unavailabl e Encounter Details Date Type Department Care Team (Late st Contact Info) Description 07/15/2018 Transcribed Document [facility] [place] [facility] [place] [address] ProviderKristel MD [address] [place] [address] Social History Tobacco Use Types Packs/Day [...] Kristel ProviderMD - 07/15/2018 8:01 AM CDT [facility] OR PACU Summary Primary Physician: DEREK DURAN MD-ORKevin Finalized Date/Time: 07/15/18 10:28:25 Pt. Name: EDSON LABOY /Sex: 1945 Female Med Rec #: [id number] Physician: DEREK DURAN MD-ORT Financial #: [id number] Pt. Type: I Room/Bed: [facility]/ Admit/Disch: 07/15/18 04:51:00 - Institution: [facility] OR PACU Case Times Entry 1 In PACU I 07/15/18 09:21:00 Ready for PACU 07/15/18 09:51:00 Discharge Discharge from PACU 07/15/18 10:10:00 I Last Modified By: Nikki Wang RN 07/15/18 10:27:52 [facility] OR PACU Case Times Audit 07/15/18 10:27:52 Internal Recruiter: HELFEP Modifier: HELFEP <+> 1 Ready for PACU Discharge <+> 1 Discharge from PACU I [facility] OR PACU Acuity Entry 1 Start Time 07/15/18 09:51:00 Stop Time 07/15/18 10:10:00 Acuity Level [facility] PACU Acuity I Last Modified By: Nikki Wang RN 07/15/18 10:28:21 Finalized By: Nikki Wang RN Document Signatures Signed By: Nikki Wang RN 07/15/18 10:28 Electronically signed by Rosario [facility] Conversion Integration Engineer Cerner at 06/29/2022 1:40 PM CDT documented in this encounter Plan of Treatment Not on file documented as of this encounter Visit Diagnoses Not on filedocumented in this encounter
--- OUTSIDE RECORDS SUMMARY | 2024-09-03 13:42 | XMS_ITS | Encounter Summary ---
Author Organization [employer] [email or web address]! Technologies Address [address] [place] [address] Care Team Providers Care Food Vendor Name Role Phone Unavailable Primary Care Provider Unavailabl e Encounter Details Date Type Department Care Team (Late st Contact Info) Description 07/15/2018 Transcribed Document [facility] [place] Family Medicine [facility] [place] [address] ProviderKristel MD [address] [place] [address] Social History Tobacco Use Types Packs/Day [...] DANA PALMA OTR/L - 07/16/2018 10:58 EDT Retail Field Supervisor Goals, OT Other LTG Grid Goal #1 [...]
--- OUTSIDE RECORDS SUMMARY | 2024-09-03 13:42 | XMS_ITS | Encounter Summary ---
Author Organization [employer] Address [address] [place] [address] Care Team Providers Care Assurance Manager Name Role Phone Unavailable Primary Care Provider Unavailabl e Encounter Details Date Type Department Care Team (Late st Contact Info) Description 07/15/2018 Transcribed Document [facility] [place] [facility] [place] [address] ProviderKristel MD [facility] [place] [address] Social History Tobacco Use Types [...]
--- OUTSIDE RECORDS SUMMARY | 2024-09-03 13:42 | XMS_ITS | Encounter Summary ---
Author Organization [email or web address] Address [address] [place] [address] Care Team Providers Care Strategic Planning Specialist Name Role Phone Unavailable Primary Care Provider Unavailabl e Encounter Details Date Type Department Care Team (Late st Contact Info) Description 07/15/2018 Transcribed Document [facility] [place] Family Medicine Counts include 234 beds at the [facility] [place] [address] ProviderKristel MD [address] [place] [address] Social History Tobacco Use Types Packs/Day [...] LABOY /Sex: 1945 Female Med Rec #: [id number] Physician: DEREK DURAN MD-ORT Financial #: [id number] Pt. Type: I Room/Bed: [facility] Admit/Disch: 07/15/18 04:51:00 - Institution: [facility] [place] IntraOp Case Attendance Entry 1 Entry 2 Entry 3 Case Attendee Ney Ann ST Austin, Martha Wells RN Role Performed Scrub, Second Scrub, First Informaticist, First Time In 07/15/18 07:28:00 07/15/18 07:28:00 [...] Brown, Frankie Brooks, Aysha Guerra MD-ORT Tech Financial Aid Manager Role Performed Surgeon/Proceduralist, Assistive Personnel Dye Room Helper First Time In 07/15/18 07:59:00 07/15/18 07:28:00 [...] 9 Case Attendee CLARITZA VEGAS, CELSO DAMON, SCHEDULING COORDINATOR MAHAMED BE, PAC Role Performed Game Preserve Manager, First SCHEDULING COORDINATOR/Nurse Road Freight Brake Coupler Physician assistant public defender Time In 07/15/18 07:28:00 07/15/18 07:28:00 07/15/18 [...] SJE IntraOp Case Attendance Audit 07/15/18 09:35:34 Upset Operator: KARLOS Modifier: KARLOS 8 <+> Time Out 8 <*> Procedure Hip Total Anterior Approach 9 <+> Time Out 9 <*> Procedure Hip Total Anterior Approach 10 <+> Time Out 10 <*> Procedure Hip Total Anterior Approach 07/15/18 09:35:33 Upset Operator: KARLOS Modifier: KARLOS 1 <+> Time [...] Procedure Hip Total Anterior Approach 07/15/18 08:26:33 Upset Operator: KARLOS Modifier: KARLOS 7 <+> Time Out 7 <*> Procedure Hip Total Anterior Approach 9 <*> Time In 07/15/18 07:28:00 9 <*> Procedure Hip Total Anterior Approach 07/15/18 08:01:40 Upset Operator: KARLOS Modifier: KARLOS 1 <*> Case Attendee DEREK DURAN MD-ORKevin 1 <*> Role Performed Surgeon/Proceduralist, First 1 <*> Time In 07/15/18 07:28:00 1 <*> Procedure Hip Total Anterior Approach 2 <*> Case Attendee Martha Torrez, RN 2 <*> Role Performed Informaticist, First 2 <*> Time In 07/15/18 07:28:00 [...] Approach 5 <*> Case Attendee Deedee Brown, Lacing Cutter 5 <*> Role Performed Assistive Personnel 5 <*> Time In 07/15/18 07:28:00 5 <*> Procedure Hip Total Anterior Approach 6 <*> Case Attendee CLARITZA VEGAS, CSA 6 <*> Role Performed Game Preserve Manager, First 6 <*> Time In 07/15/18 07:28:00 6 <*> Procedure Hip Total Anterior Approach 7 <*> Case Attendee MAHAMED BE, PAC 7 <*> Role Performed Physician assistant public defender 7 <*> Time In 07/15/18 07:28:00 7 <*> Procedure Hip Total Anterior Approach 8 <*> Case Attendee OTHER, ATTENDEE 8 <*> Role Performed Vendor 8 <*> Time In 07/15/18 07:28:00 8 <*> Procedure Hip Total Anterior Approach 8 <-> Other Attendee JER DIXON 9 <*> Case Attendee Aysha Brooks, Financial Aid Manager 9 <*> Role Performed Dye Room Helper 9 <*> Time In 07/15/18 07:28:00 9 <*> Procedure Hip Total Anterior Approach 10 <*> Case Attendee CELSO QUISPE CRNA 10 <*> Role Performed SCHEDULING COORDINATOR/Nurse Road Freight Brake Coupler 10 <+> Time In 10 <*> Procedure Hip Total Anterior Approach 10 <+> Other Attendee 07/15/18 07:52:23 Upset Operator: KARLOS Modifier: KARLOS 1 <+> Time [...] SJE IntraOp Case Times Audit 07/15/18 09:35:17 Upset Operator: KARLOS Modifier: JORDYNBLAND <+> 1 Out Room Time <+> 1 Stop Time 07/15/18 09:08:56 Upset Operator: KARLOS Modifier: JORDYNBLAND <+> 1 Stop Time 07/15/18 08:01:26 Upset Operator: MARTHABLNITIN Modifier: JORDYNBLAND <+> 1 Start [...] SJE IntraOp Counts Verification Audit 07/15/18 08:50:53 Upset Operator: KARLOS Modifier: SALENAAND <+> 2 Procedure [...] RN 07/15/18 07:07:36 SJE IntraOp General Case Machine Repair Person 1 Case Information OR OR 01 SJE Case Level 1 Room Verified Yes Wound Class I - Clean Specialty SN Orthopedic Anesthesia Type General ASA Class 4 Diagnosis Preop Diagnosis DJD RIGHT HIP Postop Same As Preop No Postop Diagnosis DICTATED BY MD Last Modified By: Martha Torrez RN 07/15/18 07:53:11 E IntraOp General Case Data Audit 07/15/18 07:53:11 Upset Operator: KARLOS Modifier: KARLOS <+> 1 ASA Class <+> 1 Preop Diagnosis SJE IntraOp Implant Log Entry 1 Entry 2 Entry 3 Type Implant (Synthetic) Implant (Synthetic) Implant (Synthetic) Implant Log Implant Type Hardware Hardware Hardware Tissue Implant Type Implant SHELL ACET LOGICAL 48MM LNER LGCL CP 50MM STEM HIP COXA CLLR Identification -[id number] ORIGIN [id number] Description Implant Quantity 1 1 1 Implant Site RIGHT HIP RIGHT HIP RIGHT HIP Implant Identification Model Number Implant Identification Serial Number Implant [id number] Identification Lot Number Implant Paxeon Reconstruction Paxeon Reconstruction Paxeon Reconstruction Identification Saw Superintendent Name: Implant [id number] Identification Catalog Number Implant Size Implant Has an Yes Yes Yes Expiration Date Implant Expiration 06/10/23 02/08/23 04/11/23 Date Wasted Radioactive Material Time Implanted Tissue Implant Continue for Tissue Implant Documentation Tissue Identification Number Graft Prep Per Saw Superintendent Instructions: Tissue Preparation Method: Reconstitution Solution: Reconstitution Solution Lot Number Reconstitution Solution Expiration Date: Thawing Solution Thawing Solution Lot Number Thawing Solution Expiration Date Preparation Materials, Other Preparation Materials, Other Lot Number Preparation Materials, Other Expiration Date Tissue Prepared/Processed By Saw Superintendent Paperwork Completed Implant Type Comment Last Modified By: Martha Torrez RN Bland, Jordyn A, RN Bland, Jordyn A, RN 07/15/18 08:26:09 07/15/18 08:26:09 07/15/18 08:47:20 Entry 4 Type Implant (Synthetic) Implant Log Implant Type Hardware Tissue Implant Type Implant HEAD FEM CERC [id number] 32MM Identification [id number] Description Implant Quantity 1 Implant Site RIGHT HIP Implant Identification Model Number Implant Identification Serial Number Implant [id number] Identification Lot Number Implant Paxeon Reconstruction Identification Saw Superintendent Name: Implant [id number] Identification Catalog Number Implant Size Implant Has an Yes Expiration Date Implant Expiration 04/11/23 Date Wasted Radioactive Material Time Implanted Tissue Implant Continue for Tissue Implant Documentation Tissue Identification Number Graft Prep Per Saw Superintendent Instructions: Tissue Preparation Method: Reconstitution Solution: Reconstitution Solution Lot Number Reconstitution Solution Expiration Date: Thawing Solution Thawing Solution Lot Number Thawing Solution Expiration Date Preparation Materials, Other Preparation Materials, Other Lot Number Preparation Materials, Other Expiration Date Tissue Prepared/Processed By Saw Superintendent Paperwork Completed Implant Type Comment Last Modified By: Martha Torrez RN 07/15/18 08:47:20 SJ IntraOp Implant Log Audit 07/15/18 08:47:20 Upset Operator: KARLOS Modifier: KRALOS <+> 3 Implant Identification Description <+> 3 Implant Identification Lot Number <+> 3 Implant Identification Saw Superintendent Name: <+> 3 Implant Expiration Date <+> 3 Implant Identification Catalog Number <+> 4 Implant Identification Description <+> 4 Implant Identification Lot Number <+> 4 Implant Identification Saw Superintendent Name: <+> 4 Implant Expiration Date <+> 4 Implant Identification Catalog Number 07/15/18 08:26:09 Upset Operator: KARLOS Modifier: KARLOS <+> 1 Implant Identification Description <+> 1 Implant Identification Lot Number <+> 1 Implant Identification Saw Superintendent Name: <+> 1 Implant Expiration Date <+> 1 Implant Identification Catalog Number <+> 2 Implant Identification Description <+> 2 Implant Identification Lot Number <+> 2 Implant Identification Saw Superintendent Name: <+> 2 Implant Expiration Date <+> 2 Implant Identification Catalog Number 07/15/18 07:54:53 Upset Operator: KARLOS Modifier: KARLOS <+> 3 Implant [...] vancomycin 1Gm vial - ANESTHETIC 1000MG/10 ML [id number] COCKTAIL-ROGER [id number] Combo Med List Time Administered Route of [...] Intra Op Sign Out Audit 07/15/18 09:35:26 Upset Operator: KARLOS Modifier: KARLOS <+> 1 RN [...] SJE IntraOp Surgical Procedures Audit 07/15/18 09:08:57 Upset Operator: KARLOS Modifier: KARLOS <+> 1 Start [...] SJE IntraOp Time Out Audit 07/15/18 08:01:30 Upset Operator: KARLOS Modifier: KARLOS 1 <+> Time Out Pause Time 1 <*> Procedure to be Performed Hip Total Anterior Approach 07/15/18 07:56:31 Upset Operator: KARLOS Modifier: KARLOS 1 <+> Beta Pat Administered 1 <*> Procedure to be Performed Hip Total Anterior Approach SJE IntraOp X-Ray and Images Entry 1 X-Ray/Imaging Type Fluoroscopy Fluoroscopy Type C-Arm Site RIGHT HIP Watcher Automat Long Goods Name Aysha Brooks, Financial Aid Manager Protective Devices Yes Used Last Modified By: Martha Torrez RN 07/15/18 07:56:43 Case Comments <None> Finalized By: Martha Torrez, RN Document Signatures Signed By: Martha Torrez RN 07/15/18 09:37 Electronically signed by Rosario [facility] Conversion Care Worker Cerner at 06/29/2022 1:20 PM CDT documented in this encounter Plan of Treatment Not on file documented as of this encounter Visit Diagnoses Not on filedocumented in this encounter
--- OUTSIDE RECORDS SUMMARY | 2024-09-03 13:42 | XMS_ITS | Encounter Summary ---
Author Organization [employer] Address [address] [place] [address] Care Team Providers Care Review Specialist Name Role Phone Unavailable Primary Care Provider Unavailabl e Encounter Details Date Type Department Care Team (Late st Contact Info) Description 07/22/2018 Transcribed Document [facility] Count includes the [facility] [place] [address] ProviderKristel MD Count includes the [facility] [place] [address] Social History Tobacco Use Types [...] Policy Numbers : Insurance 1 Health Plan: [employer] PPO Policy Number: [id number] Authorization Number: [id number] Insurance Primary Name : [employer] Medicare Authorization Status-Primary : Notification only Reference Number-Primary : [id number] Authorization Number-Primary : [id number] Authorized Service Begin Date-Primary : 07/15/2018 EDT Authorization Comments-Primary : approved per availity for inpt Historical Authorization Comments-Primary : Comment 1: Uploaded clinicals to [employer] via [email or web address] by . (ERICK JONES RN-Utilization Review 07/15/2018 15:49) LYNN REID RN-Utilization Review - 07/22/2018 12:50 EDT documented in this encounter Plan of Treatment Not on file documented as of this encounter Visit Diagnoses Not on filedocumented in this encounter
--- OUTSIDE RECORDS SUMMARY | 2024-09-03 13:42 | XMS_ITS | Encounter Summary ---
Author Organization [employer] Address [address] [place] [address] Care Team Providers Care Utility Specialist Name Role Phone Unavailable Primary Care Provider Unavailabl e Encounter Details Date Type Department Care Team (Late st Contact Info) Description 07/15/2018 Transcribed Document [facility] [place] Family Medicine [facility] [place] [address] ProviderKristel MD [facility] [place] [address] Social History Tobacco Use Types [...] Policy Numbers : Insurance 1 Health Plan: [email or web address] PPO Policy Number: [id number] Authorization Number: [id number] Insurance Primary Name : [employer] Medicare Authorization Status-Primary : Awaiting callback Authorization Number-Primary : [id number] Authorized Service Begin Date-Primary : 07/15/2018 EDT [...]
--- OUTSIDE RECORDS SUMMARY | 2024-09-03 13:42 | XMS_ITS | Encounter Summary ---
Author Organization [employer] Address [address] [place] [address] Care Team Providers Care Java Lead Developer Name Role Phone Unavailable Primary Care Provider Unavailabl e Encounter Details Date Type Department Care Team (Late st Contact Info) Description 07/16/2018 Transcribed Document [facility] [place] [facility] [place] [address] ProviderKristel MD [facility] [place] [address] Social History Tobacco Use Types [...] Kristel ProviderMD - 07/16/2018 12:02 [place] [address] CINDY LABOY :1945 Visit Time:07/15/2018 Your Visit Summary Your Care Team Admitting Physician - RONAL ROBERT MD Attending Physician - DEREK DURAN MD-ORT Primary Care Physician - RANDAL ALBARADO (REF)[facility] Referring Physician - DEREK DURAN MD-ORT Your Diagnosis S/P total hip arthroplasty Unilateral primary osteoarthritis, right hip, Unilateral primary osteoarthritis, right hip These Are Your Goals I want to mow the yard. Interventions: Work with PT Discharge Vitals Heart Rate 72 Blood Pressure 105/62 What to do next Instructions From Your Care Team [facility] FOR PHYSICAL THERAP[facility], PT WILL NEED TO INFORM HOME HEALTH DIRECTLY OF WHEN SHE WILL CHANGE 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 TO HER OWN HOME [phone] PT HAS ALL NEEDED DME Follow-Up Appointments Follow Up with JAIDEN LEBRON PA-C When 08/26/2018 10:00 AM EDT Comments Appointment has been made Where: [address] [facility] [address] [place] [address]- Follow Up with Follow up with primary [...] Barley. Bulgur wheat. Millet. Bran muffins. Popcorn. Roberts wafer crackers. Vegetables Sweet potatoes. Spinach. Kale. Artichokes. Cabbage. Broccoli. Green peas. Carrots. Squash. Fruits Berries. Pears. Apples. Oranges. Avocados. Prunes and raisins. Dried figs. Meats and Other Protein Sources Edcouch, kidney, christianson, and soy beans. Split peas. [...] gabriel has 11 g of protein. ??? [place] seeds ??? 1 oz has 5.5 g [...] floor. ??? Place frequently used items in ehlt-cr-vcesz places ??? Keep electrical cables out of [...] ??? Using the bathroom. ??? Using household cloth printing back tender or toxic chemicals. ??? Touching or taking [...] Assistance with quitting is available by contacting 6-313-XTFP-NOW. This is a free resource providing counseling, [...] computer, smartphone, or tablet. Just go to vLine to get started. Questions? Call . Test [...] was given the opportunity to ask questions. Patient/Learning Designer Name: Patient/Learning Designer Signature: Relationship to Patient: Clinician/Hospital Learning Designer Signature: Date: documented in this encounter Plan of Treatment Not on file documented as of this encounter Visit Diagnoses Not on filedocumented in this encounter
--- OUTSIDE RECORDS SUMMARY | 2024-09-03 13:42 | XMS_ITS | Encounter Summary ---
Author Organization [employer] Address [address] [place] [address] Care Team Providers Care Model Maker Apprentice Name Role Phone Unavailable Primary Care Provider Unavailabl e Encounter Details Date Type Department Care Team (Late st Contact Info) Description 07/16/2018 Transcribed Document [facility] [place] Medicine [facility] [address] ProviderKristel MD [address] [place] [address] Social History Tobacco Use Types Packs/Day Years [...]
--- OUTSIDE RECORDS SUMMARY | 2024-09-03 13:42 | XMS_ITS | Encounter Summary ---
Author Organization [employer] Address [address] [place] [address] Care Team Providers Care Paper Cutting Machine Operator Name Role Phone Unavailable Primary Care Provider Unavailabl e Encounter Details Date Type Department Care Team (Late st Contact Info) Description 06/28/2018 Transcribed Document [facility] [place] Family Medicine [facility] [place] [address] ProviderKristel MD [address] [place] [address] Social History Tobacco Use Types Packs/Day [...] Source : Stated Height Entry Format : Ceres Height, Feet : 5 ft(Converted to: 152 cm, 60 Inch) Height, Inches : 1 Inch(Converted to: 0 ft 1 Inch, 2.54 cm) Clinical Height : 154.94 cm Weight Source : Standing scale Weight Entry Format : Ceres Clinical Dosing Weight : 65 kg Weight, Pounds : 143 lb Body Surface Area (BSA) : 1.64 m2 Body Mass Index : 27.1 kg/m2 (HI) Lawn Body Weight : 47 kg CLARISSA GUERRERO [...] #2 Relationship : daughter Primary Language : Amharic Communication Barrier : None CLARISSA GUERRERO RN [...] CLARISSA GUERRERO RN - 06/28/2018 10:15 EDT Electronically signed by Tatiana Ponce Conversion Direct Customer Service Representative Cerner at 06/29/2022 1:31 PM CDT documented in this encounter Plan of Treatment Not on file documented as of this encounter Visit Diagnoses Not on filedocumented in this encounter
--- OUTSIDE RECORDS SUMMARY | 2024-09-03 13:42 | XMS_ITS | Encounter Summary ---
Author Organization [employer] Address [address] [place] [address] Care Team Providers Care Heat Treat Operator Name Role Phone Unavailable Primary Care Provider Grady peres Encounter Details Date Type Department Care Team (Late st Contact Info) Description 07/16/2018 Transcribed Document [facility] [place] Family Medicine [facility] [place] [address] ProviderKristel MD [facility] [place] [address] Social History Tobacco Use Types [...]
--- OUTSIDE RECORDS SUMMARY | 2024-09-03 13:42 | XMS_ITS | Referral Summary ---
Author Organization [email or web address] Address [address] [place] [address] Care Team Providers Care Dispatcher Bus And Trolley Name Role Phone Unavailable Primary Care Provider [...] Date Bryson rded Speak language other than Sami at home Not on file 03/30/2023 Want [...]
--- OUTSIDE RECORDS SUMMARY | 2024-09-03 13:42 | XMS_ITS | Encounter Summary ---
Author Organization [employer] Address [address] [place] [address] Care Team Providers Care Covered Buckle Assembler Name Role Phone Unavailable Primary Care Provider Unavailabl e Encounter Details Date Type Department Care Team (Late st Contact Info) Description 07/15/2018 Transcribed Document [facility] [place] [address] ProviderKristel MD [address] [place] [address] Social History Tobacco Use Types Packs/Day [...] VERO TAMEZ, PT - 07/15/2018 12:39 EDT Body Corporate Manager Goals Other PT LTG Grid Goal #1 [...] VERO TAMEZ, PT - 07/15/2018 12:39 EDT [place] PT Charges Gait Training Each 15 Min : 1 PT Eval Low Complexity : 1 VEOR TAMEZ, PT - 07/15/2018 12:39 EDT Electronically signed by Tatiana Ponce Conversion Nuclear Medicine Technologist Cerner at 06/29/2022 1:34 PM CDT documented in this encounter Plan of Treatment Not on file documented as of this encounter Visit Diagnoses Not on filedocumented in this encounter
--- OUTSIDE RECORDS SUMMARY | 2024-09-03 13:42 | XMS_ITS | Encounter Summary ---
Author Organization [employer] Address [address] [place] [address] Care Team Providers Care Application Packager Name Role Phone Unavailable Primary Care Provider Unavailabl e Encounter Details Date Type Department Care Team (Late st Contact Info) Description 07/15/2018 Transcribed Document [facility] [place] Family Medicine [facility] [place] [address] ProviderKristel MD [facility] [place] [address] Social History Tobacco Use Types [...] LABOY /Sex: 1945 Female Med Rec #: [id number] Physician: DEREK DURAN MD-ORT Financial #: [id number] Pt. Type: I Room/Bed: 3/ Admit/Disch: 07/15/18 04:51:00 - [place] [facility] [place] Case Times Entry 1 In Preop 07/15/18 05:40:00 Ready for Holding n/a Room Patient Ready for 07/15/18 07:12:00 Surgery Patient Out of Preop 07/15/18 07:25:00 Patient Out of n/a Holding Room Last Modified By: CHADWICK CHAN 07/15/18 12:29:59 SHARAN PreOp Case Times Audit 07/15/18 12:29:59 Oil Heaterman: MAY Modifier: CATLETDD <+> 1 Patient Out of Preop Finalized By: CHADWICK CHAN Document Signatures Signed By: CHADWICK HCAN 07/15/18 12:30 documented in this encounter Plan of Treatment Not on file documented as of this encounter Visit Diagnoses Not on filedocumented in this encounter
--- OUTSIDE RECORDS SUMMARY | 2024-09-03 13:42 | XMS_ITS | Clinical Summary ---
Author Organization [employer] Address [address] [place] [address] Care Team Providers Care Paramedic Rn Name Role Phone Unavailable Primary Care Provider [...] Date Bryson rded Speak language other than Japanese at home Not on file 03/30/2023 Want [...]
--- OUTSIDE RECORDS SUMMARY | 2024-09-03 13:42 | XMS_ITS | Encounter Summary ---
Author Organization [employer] Address [address] [place] [address] Care Team Providers Care Manager Order Name Role Phone Unavailable Primary Care Provider Grady peres Encounter Details Date Type Department Care Team (Late st Contact Info) Description 07/15/2018 Transcribed Document [facility] Family [place] [facility] [place] [address] ProviderKristel MD [address] [place] [address] Social History Tobacco Use Types Packs/Day [...]
--- OUTSIDE RECORDS SUMMARY | 2024-09-03 13:43 | XMS_ITS | Clinical Summary ---
Author Organization Healthcare Address [address] [place] [address] Care Team Providers Care Supervisor Alum Plant Name Role Phone Unavailable Primary Care Provider Unavailabl e Encounters Date Type Department Care Team Description 08/28/2024 Orders Only [facility] [place] [facility] [address] [facility] [place] [address] Maya Krueger, RN Infrarenal abdominal aortic aneurysm (AAA) without rupture (CMS/HCC) (Primary Dx) 08/27/2024 Community Orders [facility] [address] [place] [address] Nae Cortés APRN Elevated BUN (Primary Dx); Elevated creatine kinase 08/22/2024 Orders Only External Location [address] [place] [address] Provider, External from Last 3 Months Social History Tobacco Use Types Packs/Day Years Used Date Smoking Tobacco: Never Assessed Comments Unknown Sex and Gender Information Value Date Recorded Sex Assigned at Not on file Legal Sex Female 6:12 PM EDT Gender Identity Not on file Sexual Orientation Not on file Plan of Treatment Upcoming Encounters Date Type Department Care Team (Late st Contact Info) Description 10/17/2024 11:20 AM EDT Office Visit [place] [facility] [address] [facility] 5th Floor [address] [place] [address] Bjorn Galarza MD [address] [facility] [address] [place] [address] Health Maintenance Due Date Last Done Comments [facility]-Bone Density Scan 1945 [facility]-Depression Screening 1945 [facility]-Hepatitis C Screening 1945 [facility]-Medicare Annual Wellness (AWV) 1945 [facility]-/Child/Adol SDOH Screenings 1945 [facility]- SDOH Screenings 1964 [facility]-Adult SDOH Screenings 1964 [facility]-Zoster Vaccines (1 of 2) 1996 [facility]-RSV Vaccine: 60+ Years or (1 - 1-dose 75+ series) 2021 ZIG-EXEGH-64 Vaccine (3 - season) 2023 05/19/2020, 04/21/2020 [facility]-Influenza Vaccine (Season Ended) 2024 01/25/2023, 01/19/2022, 12/29/2019, Additional history exists [facility]-DTaP,Tdap,and Td Vaccines (2 - Td or Tdap) 06/03/2031 06/02/2021, 05/16/1996 [facility]-Pneumococcal Vaccine: 50+ Years Completed 12/04/2016, 11/28/2015 HPV Vaccines Aged Out No longer eligi ble based on patient's age to complete this topic [facility]-HIB Vaccines Aged Out No longer e ligible based on patient's age to complete this topic [facility]-Hepatitis A Vaccines Aged Out No longer eligible based on patient's age to complete this topic UKY-IPV Vaccines Aged Out No longer e ligible based on patient's age to complete this topic [facility]-Rotavirus Vaccines Aged Out No lo nger eligible based on patient's age to complete this topic Procedures Procedure Name Priority Date/Time Associated Diagnosis Comments US ABDOMEN OUTSIDE IMAGES 08/22/2024 9:32 AM EDT from Last 3 Months Results * US ABDOMEN OUTSIDE IMAGES (08/22/2024 9:32 AM EDT) Anatomical Region Laterality Modality Ultrasound 08/22/2024 9:32 AM EDT us External Provider IMG US PROCEDURES Final Result from Last 3 Months Insurance [facility]
--- OUTSIDE RECORDS SUMMARY | 2024-09-03 13:43 | XMS_ITS | Encounter Summary ---
Author Organization [employer] Address [address] [place] [address] Care Team Providers Care Sheet Music Salesperson Name Role Phone Unavailable Primary Care Provider Unavailabl e Encounter Details Date Type Department Care Team (Late st Contact Info) Description 07/16/2018 Transcribed Document [facility] [place] [place] Family Medicine [facility] [place] [address] ProviderKristel MD [address] [place] [address] Social History Tobacco Use Types Packs/Day [...] 07/16/2018 9:54 EDT by NAYA MINOR, Care Management-Plant Buyer Care Management Progress Note Discharge Arrangements : [...] Acute Providers : Yes NAYA MINOR, Care Management-Plant Buyer - 07/16/2018 9:54 EDT Electronically signed by Rosario, [facility] Conversion Geothermal Heat Pump Machinist Cerner at 06/29/2022 1:33 PM CDT documented in this encounter Plan of Treatment Not on file documented as of this encounter Visit Diagnoses Not on filedocumented in this encounter
--- OUTSIDE RECORDS SUMMARY | 2024-09-03 13:43 | XMS_ITS | Encounter Summary ---
Author Organization [employer] Address [address] [place] [address] Care Team Providers Care Diamond Sawer Name Role Phone Unavailable Primary Care Provider Unavailabl e Encounter Details Date Type Department Care Team (Late st Contact Info) Description 07/16/2018 Transcribed Document [facility] [address] [place] [address] Ronal Robert MD [address] [place] [address] [place] [address] Social History Tobacco Use Types Packs/Day Years [...] QHS Primary Care Provider RANDAL ALBARADO (REF), -[facility] Time spent 35 minutes documented in this encounter Plan of Treatment Not on file documented as of this encounter Visit Diagnoses Not on filedocumented in this encounter
--- OUTSIDE RECORDS SUMMARY | 2024-09-03 13:43 | XMS_ITS | Encounter Summary ---
Author Organization Healthcare Address [address] [place] [address] Care Team Providers Care Deaf And Hard Of Hearing Teacher Name Role Phone Unavailable Primary Care Provider Unavailabl e Encounter Details Date Type Department Care Team (Late Contact Info) Description 12/06/2023 Orders Only External Location [address] [place] [address] Provider, External Social History Tobacco Use Types Packs/Day Years Used Date Smoking Tobacco: Never Assessed Comments Unknown Sex and Gender Information Value Date Recorded Sex Assigned at Not on file Legal Sex Female 6:12 PM EDT Gender Identity Not on file Sexual Orientation Not on file documented as of this encounter Plan of Treatment Upcoming Encounters Date Type Department Care Team (Late Contact Info) Description 10/17/2024 11:20 AM EDT Office Visit [place] [facility] [address] [facility] 5th Floor [address] [place] [address] Bjorn Galarza MD [address] [facility] [address] [place] [address] documented as of this encounter Procedures Procedure Name Priority Date/Time Associated Diagnosis Comments US ABDOMEN OUTSIDE IMAGES 12/06/2023 10:49 AM EDT documented in this encounter Results * US ABDOMEN OUTSIDE IMAGES (12/06/2023 10:49 AM EDT) Anatomical Region Laterality Modality Ultrasound 12/06/2023 10:4 9 AM EDT us External Provider IMG US PROCEDURES Final Result documented in this encounter Visit Diagnoses Not on filedocumented in this encounter
--- OUTSIDE RECORDS SUMMARY | 2024-09-03 13:43 | XMS_ITS | Encounter Summary ---
Author Organization [employer] [facility] Address [address] [place] [address] Care Team Providers Care Lumber Bearer Name Role Phone Unavailable Primary Care Provider Unavailabl e Encounter Details Date Type Department Care Team (Late st Contact Info) Description 07/16/2018 Transcribed Document [facility] [place] Family Medicine [facility] [place] [address] ProviderKristel [place] [facility] [place] [address] Social History Tobacco Use Types [...] 07/16/2018 9:54 EDT by NAYA MINOR Care Management-Coal Hauler Final Discharge Planning Discharge Arrangements : Patient Post-Acute Information Patient Name: CINDY BRAXTON Gender: Female : [birth year] Age: 73 Years No Post-Acute Placement(s) Listed No Post-Acute Service(s) Listed No Curaspan Referral(s) Listed NAYA MINOR Care Management-Coal Hauler - 07/16/2018 9:54 EDT [facility] Service : [employer] [facility] Organization : PHYSICAL THERAPY MILY, NAYA, Care Management-Coal Hauler - 07/16/2018 9:54 EDT Discharge To Care Management : Home Health Services (Related/SOC within 3 days)-06 NAYA MINOR Care Management-Coal Hauler - 07/16/2018 9:54 EDT Electronically signed by Rosario [facility] Conversion Habilitation Specialist Cerner at 06/29/2022 1:31 PM CDT documented in this encounter Plan of Treatment Not on file documented as of this encounter Visit Diagnoses Not on filedocumented in this encounter
--- OUTSIDE RECORDS SUMMARY | 2024-09-03 13:43 | XMS_ITS | Encounter Summary ---
Author Organization [employer] Address [address] [place] [address] Care Team Providers Care Summer Intern Name Role Phone Unavailable Primary Care Provider Unavailabl e Encounter Details Date Type Department Care Team (Late st Contact Info) Description 07/16/2018 Transcribed Document [facility] [place] Family Medicine [facility] [address] ProviderKristel MD [facility] [place], [place] [id number] Social History Tobacco Use Types Packs/Day Years [...]
--- OUTSIDE RECORDS SUMMARY | 2024-09-03 13:43 | XMS_ITS | Encounter Summary ---
Author Organization Healthcare Address [address] [place] [address] Care Team Providers Care Health Services Director Name Role Phone Unavailable Primary Care Provider Unavailabl e Encounter Details Date Type Department Care Team (Late Contact Info) Description 08/22/2024 Orders Only External Location [address] [place] [address] Provider, External Social History Tobacco Use Types [...] [place] [facility] [address] [facility] 5th Floor [address] [place] [address] Bjorn Galarza MD [address] [facility] [address] [place] [address] documented as of this encounter Procedures Procedure Name Priority Date/Time Associated Diagnosis Comments US ABDOMEN OUTSIDE IMAGES 08/22/2024 9:32 AM EDT documented in this encounter Results * US ABDOMEN OUTSIDE IMAGES (08/22/2024 9:32 AM EDT) Anatomical Region Laterality Modality Ultrasound 08/22/2024 9:32 AM EDT us External Provider IMG US PROCEDURES Final Result documented in this encounter Visit Diagnoses Not on filedocumented in this encounter
--- OUTSIDE RECORDS SUMMARY | 2024-09-03 13:43 | XMS_ITS | Encounter Summary ---
Author Organization [employer] Address [address] [place] [address] Care Team Providers Care Dairy Grazer Name Role Phone Unavailable Primary Care Provider Unavailabl e Encounter Details Date Type Department Care Team (Late st Contact Info) Description 07/16/2018 Transcribed Document [facility] [place] [facility] [address] ProviderKristel MD [facility] [place], [place] [address] Social History Tobacco Use Types Packs/Day Years [...]
--- OUTSIDE RECORDS SUMMARY | 2024-09-03 13:43 | XMS_ITS | Encounter Summary ---
Author Organization [employer] Address [address] [place] [address] Care Team Providers Care Culinary Assistant Name Role Phone Unavailable Primary Care Provider Unavailabl e Encounter Details Date Type Department Care Team (Late st Contact Info) Description 07/16/2018 Transcribed Document [facility] [place] [facility] [place] [address] ProviderKristel [place] [address] Social History Tobacco Use Types [...] 07/16/2018 9:53 EDT by NAYA MINOR, Care Management-Acupuncture Physician Initial Assessment I Previously Documented Living Environment : No qualifying data available. Living Situation : Home Patient Lives With : Alone Emergency Contact #1 : Sera Emergency Contact #1 Emergency Contact #1 Relationship : daughter Emergency Contact #2 : Nae Emergency Contact #2 Emergency Contact #2 Relationship : daughter NAYA MINOR Care Management-Acupuncture Physician - 07/16/2018 9:53 EDT Initial Assessment II Sensory and Motor Deficits : Other: AYESHA Current Home Treatments and Equipment : Bedside commode, Shower chair, Walker NAYA MINOR Care Management-Acupuncture Physician - 07/16/2018 9:53 EDT Discharge Needs I Anticipated Discharge Date : 07/16/2018 EDT Anticipated Discharge To, CM : Home with home health Current Home Treatment/Equipment : Current Home Treatment/Equipment No qualifying data available. NAYA MINOR, Care Management-Acupuncture Physician - 07/16/2018 9:53 EDT Discharge Needs II Professional Skilled Services : Professional Skilled Services No qualifying data available. Services and Community Resources : Home Health Needs Assistance with Transportation : No Discharge Options Discussed with Patient : [facility], Home Health NAYA MINOR Care Management-Acupuncture Physician - 07/16/2018 9:53 EDT documented in this encounter Plan of Treatment Not on file documented as of this encounter Visit Diagnoses Not on filedocumented in this encounter
--- OUTSIDE RECORDS SUMMARY | 2024-09-03 13:43 | XMS_ITS | Encounter Summary ---
Author Organization [employer] Address [address] [place] [address] Care Team Providers Care Travel Pta Name Role Phone Unavailable Primary Care Provider Unavailabl e Encounter Details Date Type Department Care Team (Late st Contact Info) Description 07/16/2018 Transcribed Document [facility] 1 [place] [address] Raj Ching MD [address] [place] [address] [address] [place] [id number] Social History Tobacco Use Types Packs/Day Years [...] Signature: __Cadence perez RN DS Phone #: __[phone] This is a permanent part of the Medical Record documented in this encounter Plan of Treatment Not on file documented as of this encounter Visit Diagnoses Not on filedocumented in this encounter
--- OUTSIDE RECORDS SUMMARY | 2024-09-03 13:43 | XMS_ITS | Encounter Summary ---
Author Organization [employer] Address [address] [place] [address] Care Team Providers Care Head Buyer Tobacco Name Role Phone Unavailable Primary Care Provider Unavailabl e Encounter Details Date Type Department Care Team (Late st Contact Info) Description 07/16/2018 Transcribed Document [facility] [place] Family Medicine [facility] [place] [address] ProviderKristel MD [address] [place] [address] Social History Tobacco Use Types Packs/Day [...]
--- OUTSIDE RECORDS SUMMARY | 2024-09-03 13:43 | XMS_ITS | Encounter Summary ---
Author Organization [facility] Address [address] [place] [address] Care Team Providers Care Account Support Analyst Name Role Phone Unavailable Primary Care Provider Unavailabl e Reason for Referral * Consultation (Routine) - Authorized Specialty Diagnoses / Procedures Referred By Contact Referred To Contact Vascular Surgery / [facility] Diagnoses Infrarenal abdominal aortic aneurysm (AAA) without rupture (CMS/HCC) Roselia Washington APRN [address] [facility] [address] [place] [address] Phone: tel: fax: [facility] [address] [facility] 5th Floor [address] [place] [address] Phone: tel: fax: Referral ID Status Reason Start Date Expiration Date Visits Requested Visits Authorized [id number] Authorized Specialty Services Required 08/28/2024 02/27/2026 1 1 Scheduling Instructions Requesting VALENTIN appt for infrarenal AAA 4.9 x 4.6. Requested powershare of images. Encounter Details Date Type Department Care Team (Late st Contact Info) Description 08/28/2024 Orders Only [facility] [place] [address] [place] [address] Maya Krueger, RN HOSP. SPECIAL DIAGNOSTIC FACILITIES ADMI Infrarenal abdominal aortic aneurysm (AAA) without rupture (CMS/HCC) (Primary Dx) Social History Tobacco Use Types Packs/Day Years Used Date Smoking Tobacco: Never Assessed Comments Unknown Sex and Gender Information Value Date Recorded Sex Assigned at Not on file Legal Sex Female 6:12 PM EDT Gender Identity Not on file Sexual Orientation Not on file documented as of this encounter Miscellaneous Notes * Progress Notes - Maya Krueger, RN - 08/28/2024 4:18 PM EDT Requesting VALENTIN appt for infrarenal AAA 4.9 x 4.6. Requested powershare of images. documented in this encounter Plan of Treatment Upcoming Encounters Date Type Department Care Team (Late st Contact Info) Description 10/17/2024 11:20 AM EDT Office Visit [facility] [address] [facility] 5th Floor [address] [place] [address] Bjorn Galarza MD [address] [facility] [address] [place] [address] Scheduled Referrals Name Type Priority Associated Diagnoses Order Schedule Ambulatory referral to Vascular Surgery Outpatient Referral Routine Infrarenal abdominal aortic aneurysm (AAA) without rupture (CMS/HCC) Expected: 08/28/2024, Expires: 03/01/2026 documented as of this encounter Visit Diagnoses Diagnosis Infrarenal abdominal aortic aneurysm (AAA) without rupture (CMS/HCC)- Primary documented in this encounter
--- OUTSIDE RECORDS SUMMARY | 2024-09-03 13:43 | XMS_ITS | Encounter Summary ---
Author Organization [employer] Address [address] [place] [address] Care Team Providers Care Egg Factory Worker Name Role Phone Unavailable Primary Care Provider Unavailabl e Encounter Details Date Type Department Care Team (Late st Contact Info) Description 06/28/2018 Transcribed Document [facility] [place] [facility] [place] [address] ProviderKristel MD [address] [place] [address] Social History Tobacco Use Types Packs/Day [...] Hip Pain Primary Care Provider RANDAL ALBARADO (REF)[facility] History of Present Illness This patient [...] UA is neg for nitrites and LE Electronically signed by Juan Ponce Conversion Evening Or Night Nurse Supervisor Cerner at 06/29/2022 1:33 PM CDT documented in this encounter Plan of Treatment Not on file documented as of this encounter Visit Diagnoses Not on filedocumented in this encounter
--- OUTSIDE RECORDS SUMMARY | 2024-09-03 13:43 | XMS_ITS | Encounter Summary ---
Author Organization [employer] Address [address] [place] [address] Care Team Providers Care Manufacturing Worker Name Role Phone Unavailable Primary Care Provider Unavailabl e Encounter Details Date Type Department Care Team (Late st Contact Info) Description 07/16/2018 Transcribed Document [facility] [place] Family Medicine [facility] [place] [address] ProviderKristel MD [facility] [place] [address] Social History Tobacco Use Types [...] Kristel ProviderMD - 07/16/2018 12:10 [place] [address] CINDY LABOY :1945 Visit Time:07/15/2018 Your Visit Summary Your Care Team Admitting Physician - RONAL ROBERT MD Attending Physician - DEREK DURAN MD-ORT Primary Care Physician - RANDAL ALBARADO (REF)[facility] Referring Physician - DEREK DURAN MD-ORT Your Diagnosis S/P total hip arthroplasty Unilateral primary osteoarthritis, right hip, Unilateral primary osteoarthritis, right hip These Are Your Goals I want to mow the yard. Interventions: Work with PT Discharge Vitals Heart Rate 72 Blood Pressure 105/62 What to do next Instructions From Your Care Team [facility]AP[facility], PT WILL NEED TO INFORM HOME HEALTH DIRECTLY OF WHEN SHE WILL CHANGE 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 TO HER OWN HOME [phone] PT HAS ALL NEEDED DME Follow-Up Appointments Follow Up with JAIDEN LEBRON PA-C When 08/26/2018 10:00 AM EDT Comments Appointment has been made Where: [address] [facility] [address] [place] [address]- Follow Up with Follow up with primary [...] Barley. Bulgur wheat. Millet. Bran muffins. Popcorn. [place] wafer crackers. Vegetables Sweet potatoes. Spinach. Kale. Artichokes. Cabbage. Broccoli. Green peas. Carrots. Squash. Fruits Berries. Pears. Apples. Oranges. Avocados. Prunes and raisins. Dried figs. Meats and Other Protein Sources [place], kidney, [place], and soy beans. Split peas. [...] gabriel has 11 g of protein. ??? [place] seeds ??? 1 oz has 5.5 g [...] floor. ??? Place frequently used items in ioqq-to-cggps places ??? Keep electrical cables out of [...] ??? Using the bathroom. ??? Using household marketing professional or toxic chemicals. ??? Touching or taking [...] Assistance with quitting is available by contacting 1-999-EBHG-NOW. This is a free resource providing counseling, [...] sure to sign up for the [facility] patient portal, which gives you 02/10 access to your medical information ??? including these discharge instructions ??? using your computer, smartphone, or tablet. Just go to [employer] to get started. Questions? Call . Test [...] was given the opportunity to ask questions. Patient/Wire Puller Name: Patient/Wire Puller Signature: Relationship to Patient: Clinician/Hospital Wire Puller Signature: Date: documented in this encounter Plan of Treatment Not on file documented as of this encounter Visit Diagnoses Not on filedocumented in this encounter
--- OUTSIDE RECORDS SUMMARY | 2024-09-03 13:43 | XMS_ITS | Encounter Summary ---
Author Organization [employer] Address [address] [place] [address] Care Team Providers Care Cardiology Consultant Name Role Phone Unavailable Primary Care Provider Grady peres Encounter Details Date Type Department Care Team (Late st Contact Info) Description 07/16/2018 Transcribed Document [facility] [place] [facility] [place] [address] ProviderKristel [place] [address] Social History Tobacco Use Types [...]
--- OUTSIDE RECORDS SUMMARY | 2024-09-03 13:43 | XMS_ITS | Encounter Summary ---
Author Organization [employer] Address [address] [place], [place] [address] Care Team Providers Care Rock Star Name Role Phone Unavailable Primary Care Provider Grady peres Encounter Details Date Type Department Care Team (Late st Contact Info) Description 07/16/2018 Transcribed Document [facility] [place] [facility] [place] [address] ProviderKristel MD [facility] [place] [address] Social History Tobacco Use Types [...] Historical ProviderMD - 07/16/2018 2:00 AM CDT Dental Billing Specialist Details Entered On: 07/16/2018 2:49 EDT [...]
--- OUTSIDE RECORDS SUMMARY | 2024-09-03 13:43 | XMS_ITS | Encounter Summary ---
Author Organization [employer] Address [address] [place] [address] Care Team Providers Care Sheet Metal Smith Name Role Phone Unavailable Primary Care Provider Unavailabl e Encounter Details Date Type Department Care Team (Late st Contact Info) Description 07/16/2018 Transcribed Document [facility] [place] [facility] [place] [address] ProviderKristel MD [address] [place] [address] Social History Tobacco Use Types [...] Barley. Bulgur wheat. Millet. Bran muffins. Popcorn. [place] wafer crackers. Vegetables Sweet potatoes. Spinach. Kale. Artichokes. Cabbage. Broccoli. Green peas. Carrots. Squash. Fruits Berries. Pears. Apples. Oranges. Avocados. Prunes and raisins. Dried figs. Meats and Other Protein Sources [place], kidney, [place], and soy beans. Split peas. [...] gabriel has 11 g of protein. ?? [place] seeds ??? 1 oz has 5.5 g [...] floor. ?? Place frequently used items in eywg-rp-npajc places ?? Keep electrical cables out of [...] ?? Using the bathroom. ?? Using household perishable freight inspector or toxic chemicals. ?? Touching or taking [...]
--- OUTSIDE RECORDS SUMMARY | 2024-09-03 13:43 | XMS_ITS | Encounter Summary ---
Author Organization [facility] Address [address] [place] [address] Care Team Providers Care Restorative Aide Name Role Phone Unavailable Primary Care Provider Unavailabl e Reason for Referral * Consultation (Routine) - Authorized Specialty Diagnoses / Procedures Referred By Radha santacruz Referred To Contact Nephrology Diagnoses Elevated BUN Elevated creatine kinase Nae Cortés APRN [address] [address] Phone: tel: fax: [facility] [address] [place] [address] [address], [place] [address] Phone: tel: fax: Referral ID Status Reason Start Date Expiration Date Visits Requested Visits Authorized [id number] Authorized Specialty Services Required 08/27/2024 02/26/2026 1 1 Encounter Details Date Type Department Care Team (Late st Contact Info) Description 08/27/2024 Community Orders Community Practice [address] [place] [address] Nae Cortés APRN [address] [address] Elevated BUN (Primary Dx); Elevated creatine kinase Social History Tobacco Use Types Packs/Day Years [...] [place] [facility] [address] [facility] 5th Floor [address] [place] [address] Bjorn Galarza MD [address] [facility] [address] [place] [address] Scheduled Referrals Name Type Priority Associated Diagnoses Order Schedule Ambulatory referral to Nephrology Outpatient Referral Routine Elevated BUN Elevated creatine kinase Expected: 08/27/2024 (Approximate), Expires: 02/28/2026 documented as of this encounter Visit Diagnoses Diagnosis Elevated BUN- Primary Other abnormal blood chemistry Elevated creatine kinase Other nonspecific abnormal serum enzyme levels documented in this encounter
--- OUTSIDE RECORDS SUMMARY | 2024-09-03 13:43 | XMS_ITS | Encounter Summary ---
Author Organization [employer] Address [address] [place] [address] Care Team Providers Care Sider Name Role Phone Unavailable Primary Care Provider Unavailabl e Encounter Details Date Type Department Care Team (Late st Contact Info) Description 07/16/2018 Transcribed Document [facility] [place] [facility] [place] [address] ProviderKristel MD [address] [place] [address] Social History Tobacco Use Types Packs/Day [...]
--- OUTSIDE RECORDS SUMMARY | 2024-09-03 13:43 | XMS_ITS | Encounter Summary ---
Author Organization [employer] Address [address] [place] [address] Care Team Providers Care Distribution Center Assistant Name Role Phone Unavailable Primary Care Provider Grady peres Encounter Details Date Type Department Care Team (Late st Contact Info) Description 07/16/2018 Transcribed Document [facility] [place] [facility] [place] [address] ProviderKristel MD [address] [place] [address] Social History Tobacco Use Types Packs/Day [...]
--- OUTSIDE RECORDS SUMMARY | 2024-09-03 13:43 | XMS_ITS | Encounter Summary ---
Author Organization [employer] Address [address] [place] [address] Care Team Providers Care Gender Studies Professor Name Role Phone Unavailable Primary Care Provider Unavailabl e Encounter Details Date Type Department Care Team (Late st Contact Info) Description 07/16/2018 Transcribed Document [facility] [place] [facility] [place] [address] ProviderKristel MD [facility] [place] [address] Social History Tobacco Use Types [...] Kristel ProviderMD - 07/16/2018 12:09 [place] [address] CINDY LABOY :1945 Visit Time:07/15/2018 Your Visit Summary Your Care Team Admitting Physician - RONAL ROBERT MD Attending Physician - DEREK DURAN MD-ORT Primary Care Physician - RANDAL ALBARADO (REF)MD-[facility] Referring Physician - DEREK DURAN MD-ORT Your Diagnosis S/P total hip arthroplasty Unilateral primary osteoarthritis, right hip, Unilateral primary osteoarthritis, right hip These Are Your Goals I want to mow the yard. Interventions: Work with PT Discharge Vitals Heart Rate 72 Blood Pressure 105/62 What to do next Instructions From Your Care Team [facility], PT WILL NEED TO INFORM HOME HEALTH DIRECTLY OF WHEN SHE WILL CHANGE 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 TO HER OWN HOME [phone] PT HAS ALL NEEDED DME Follow-Up Appointments Follow Up with JAIDEN LEBRON PA-C When 08/26/2018 10:00 AM EDT Comments Appointment has been made Where: [address] [facility] [address] [place] [address]- Follow Up with Follow up with primary [...] Barley. Bulgur wheat. Millet. Bran muffins. Popcorn. [place] wafer crackers. Vegetables Sweet potatoes. Spinach. Kale. Artichokes. Cabbage. Broccoli. Green peas. Carrots. Squash. Fruits Berries. Pears. Apples. Oranges. Avocados. Prunes and raisins. Dried figs. Meats and Other Protein Sources [place], kidney, christianson, and soy beans. Split peas. [...] gabriel has 11 g of protein. ??? Cameron seeds ??? 1 oz has 5.5 g [...] floor. ??? Place frequently used items in awub-dy-rpryf places ??? Keep electrical cables out of [...] ??? Using the bathroom. ??? Using household roll wrapper or toxic chemicals. ??? Touching or taking [...] Assistance with quitting is available by contacting 6-039-LVLE-NOW. This is a free resource providing counseling, [...] sure to sign up for the [facility] patient portal, which gives you 02/10 access to your medical information ??? including these discharge instructions ??? using your computer, smartphone, or tablet. Just go to Interactive TKO to get started. Questions? Call . Test [...] was given the opportunity to ask questions. Patient/Executive Vice President Of Sales Name: Patient/Executive Vice President Of Sales Signature: Relationship to Patient: Clinician/Hospital Executive Vice President Of Sales Signature: Date: documented in this encounter Plan of Treatment Not on file documented as of this encounter Visit Diagnoses Not on filedocumented in this encounter
[2024-09-03 14:32] LABS: Basophils # 0.1 K/mm3 (0-0.2); Basophils % 1.2 % (0.1-2.0); Eosinophils # 0.1 Kmm3 (0.0-0.4); Hematocrit 33.8 % (37.0-47.0); Hemoglobin 11.1 g/dL (12.2-16.2); Immature Granulocytes # 0.02 10^3uL; Immature Granulocytes % 0.3 %; Lymphocytes # 1.3 K/mm3 (0.7-4.5); Lymphocytes % 21.1 % (10-50); Mean Corpuscular HGB Conc 32.8 g/dL (31.8-35.4); Mean Corpuscular Hemoglobin 31.1 pg (27.0-31.2); Mean Corpuscular Volume 94.7 fl (81-99); Mean Platelet Volume 8.5 fl (7.4-10.4); Monocytes # 0.7 K/mm3 (0.1-1.0); Monocytes % 11.4 % (1.7-9.3); Neutrophils # 3.8 K/mm3 (1.8-7.8); Nucleated Red Blood Cells # 0 10^3/uL; Nucleated Red Blood Cells % 0 %; Platelet Count 284 K/mm3 (142-424); Red Blood Count 3.57 M/mm3 (4.20-5.40); Red Cell Distribution Width 13.4 % (11.5-17.5); Red Cell Distribution Width-SD 46.8 fL
[2024-09-03 14:57] LABS: Chloride 92 mmol/L (98-107); Potassium 4.3 mmoL/L (3.5-5.1); Sodium 131 mmol/L (136-145)
[2024-09-03 14:59] LABS: Blood Urea Nitrogen 23 mg/dl (7-17); Estimated Glomerular Filt Rate 43 ml/min (>60); GFR (African American) 53 ML/MIN (>60); Iron 55 ug/dL (37-170)
[2024-09-03 15:00] LABS: Anion Gap 13.3 mEq/L (5-15); Calcium 9.1 mg/dl (8.4-10.2); Carbon Dioxide 30 mmol/L (22.0-30.0); Glucose 150 mg/dl (74-100); Magnesium 2.2 mg/dl (1.6-2.3); Phosphorous 4.3 mg/dl (2.5-4.5)
[2024-09-03 15:06] LABS: Creatinine,Urine Random 81 mg/dL (Not Estab.)
[2024-09-03 15:09] LABS: 25-OH Vitamin D, Total 59.3 ng/mL (30-100); Total Iron Binding Capacity 361 ug/dL (265-497)
[2024-09-03 15:35] LABS: Ferritin 28.4 ng/ml (11.1-264)
[2024-09-03 16:02] LABS: Folate > 20.00 ng/mL
== END 2024-09-03 23:59 | disposition home or self-care (01) ==
LOC: LAB 13:39
PROVIDERS: PCP Nurse Practitioner Family; Visit Provider Nurse Practitioner Family
DX: N18.30 Chronic kidney disease, stage 3 unspecified (principal); D64.9 Anemia, unspecified; E55.9 Vitamin D deficiency, unspecified
CPT/HCPCS: 36415; 80048; 82043; 82306; 82570; 82728; 82746; 83540; 83550; 83735; 84100; 85025

== ENCOUNTER 2024-09-10 12:55 | Outpatient (CLI) | payer MEDICARE, MEDICAID, SELFPAY ==
--- NOTE | 2024-09-10 13:00 | CT_ITS ---
PROCEDURE INFORMATION: Exam: CTA Abdominal Aorta and Bilateral Lower Extremities (Run-off) With Contrast Exam date and time: 09/10/2024 1:16 PM Age: 79 years old Clinical indication: Condition or disease; Arterial aneurysm; Without rupture; Abdominal; Additional info: Abdominal aneursym and enlargment of iliac vessels TECHNIQUE: Imaging protocol: Computed tomographic angiography of the of the abdominal aorta, pelvis and bilateral lower extremities with contrast. 3D rendering (Not supervised by radiologist): MIP and/or 3D reconstructed images were created by the technologist. Radiation optimization: All CT scans at this facility use at least one of these dose optimization techniques: automated exposure control; mA and/or kV adjustment per patient size (includes targeted exams where dose is matched to clinical indication); or iterative reconstruction. 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 More distal Unruptured aneurysm of the infrarenal aorta 4.3 x 5.2 cm.. Celiac trunk and mesenteric arteries: No occlusion or significant stenosis. Renal arteries: Stenosis at the origin of the right renal artery Right iliac arteries: Short segment of occlusion in the proximal aspect of the right internal iliac artery (series 3, image 44, 45).. Right femoral/popliteal arteries: No occlusion or significant stenosis. Right infrapopliteal arteries: Intermittent occlusion and reconstitution in the right trifurcation vessels. The right posterior tibial artery extends to the ankle . Left iliac arteries: No occlusion or significant stenosis. Left femoral/popliteal arteries: No occlusion or significant stenosis. Left infrapopliteal arteries: Intermittent occlusion and reconstitution in the left trifurcation vessels. The left posterior tibial artery extends to the ankle. The left peroneal artery extends to the ankle. Lungs: Atelectasis in the right middle lobe Liver: No mass. Gallbladder and biliary ducts: Unremarkable. No calcified stones. No ductal dilation. Pancreas: Unremarkable. No mass. No ductal dilation. Spleen: Normal. No splenomegaly. Adrenal glands: Normal. No mass. Kidneys and ureters: Normal. No mass. Stomach and bowel: Unremarkable. No obstruction. No mucosal thickening. Appendix: No evidence of appendicitis. Urinary bladder: Unremarkable. No mass. Reproductive: Unremarkable as visualized. Intraperitoneal space: Unremarkable. No free air. No significant fluid collection. Lymph nodes: No lymphadenopathy. Bones/joints: Bilateral total hip replacements Soft tissues: Unremarkable. IMPRESSION: 1. 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 2. More distal Unruptured aneurysm of the infrarenal aorta 4.3 x 5.2 cm.. 3. Short segment of occlusion in the proximal aspect of the right internal iliac artery (series 3, image 44, 45).. 4. Intermittent occlusion and reconstitution in the left trifurcation vessels. The left posterior tibial artery extends to the ankle. The left peroneal artery extends to the ankle. 5. Intermittent occlusion and reconstitution in the right trifurcation vessels. The right posterior tibial artery extends to the ankle .
--- OUTSIDE RECORDS SUMMARY | 2024-09-10 13:00 | XMS_ITS | Referral Summary ---
Author Organization [employer] ([place], [place], [place], [place]) Address [address] [place] [address] Care Team Providers Care Bacteriologist Medical Name Role Phone Unavailable Primary Care Provider Unavailabl e Social History Tobacco Use Types Packs/Day Years Used Date Smoking Tobacco: Never Assessed Food Insecurity Answer Date Recorded Food run [...] Date Bryson rded Speak language other than Mexican at home Not on file 03/30/2023 Want help with school or training Not on file 03/30/2023 Substance Use Answer Date Recorded Used [...]
--- OUTSIDE RECORDS SUMMARY | 2024-09-10 13:00 | XMS_ITS | Encounter Summary ---
Author Organization [employer] ([place], [place], [place], [place]) Address [address] [place] [address] Care Team Providers Care Double Cutter Name Role Phone Unavailable Primary Care Provider Unavailabl e Encounter Details Date Type Department Care Team (Late st Contact Info) Description 07/15/2018 Transcribed Document [facility] [place] [address] [place] [address] ProviderKristel MD [address] [place] [address] Social History Tobacco Use Types [...] Kristel ProviderMD - 07/15/2018 10:15 AM CDT Pain [...]
--- OUTSIDE RECORDS SUMMARY | 2024-09-10 13:00 | XMS_ITS | Encounter Summary ---
Author Organization [employer] ([place], [place], [place], [place]) Address [address] [place] [address] Care Team Providers Care Customer Development Representative Name Role Phone Unavailable Primary Care Provider Unavailabl e Encounter Details Date Type Department Care Team (Late st Contact Info) Description 07/15/2018 Transcribed Document [facility] [address] [place] [address] ProviderKristel MD [address] [place] [address] Social History Tobacco Use Types [...] Performed On: 07/16/2018 10:39 EDT by NIRU AIKEN PT General Information, PT Visit Type, PT [...] 12:49 PT Additional Treatment Ordered By: VERO TAMEZ PT Active Diagnoses : 07/16/2018 00:00 Presence [...] Plan/Goals Established w Patient : Yes NIRU AIKEN, PT - 07/16/2018 10:39 EDT Ironworker Foreman Goals Other PT LTG Grid Goal #1 [...]
--- OUTSIDE RECORDS SUMMARY | 2024-09-10 13:00 | XMS_ITS | Encounter Summary ---
Author Organization [employer] ([place], [place], [place], [place]) Address [address] [place] [address] Care Team Providers Care Compliance Auditor Name Role Phone Unavailable Primary Care Provider Unavailabl e Encounter Details Date Type Department Care Team (Late st Contact Info) Description 07/15/2018 Transcribed Document [facility] [place] Medicine [address] [place] [address] ProviderKristel MD [address] [place] [address] Social History Tobacco Use Types [...] Policy Numbers : Insurance 1 Health Plan: [employer] PPO Policy Number: [id number] Authorization Number: [id number] Insurance Primary Name : IP [employer] Medicare Authorization Status-Primary : Awaiting callback Authorization Number-Primary : [id number] Authorized Service Begin Date-Primary : 07/15/2018 EDT Authorization Comments-Primary : Uploaded clinicals to [employer] Medicare via [employer] by . Historical Authorization Comments-Primary : No Authorization Comments Found ERICK JONES RN-Utilization Review - 07/15/2018 15:49 EDT documented in this encounter Plan of Treatment Not on file documented as of this encounter Visit Diagnoses Not on filedocumented in this encounter
--- OUTSIDE RECORDS SUMMARY | 2024-09-10 13:00 | XMS_ITS | Encounter Summary ---
Author Organization [employer] ([place], [place], [place], [place]) Address [address] [place] [address] Care Team Providers Care Awnings Mechanic Name Role Phone Unavailable Primary Care Provider Unavailabl e Encounter Details Date Type Department Care Team (Late st Contact Info) Description 07/15/2018 Transcribed Document [facility] Radiology [address] [place] [address] [place] [address] [place] [address] [address] Social History Tobacco Use Types Packs/Day Years [...] limitation: None. Primary Care Provider RANDAL ALBARADO (MD [facility] Chief Complaint Right hip pain History [...] Medical SVT (supraventricular tachycardia) / SNOMED CT 63948875 / Confirmed Hypertension / SNOMED CT 0355238970 / Confirmed Hypothyroidism / SNOMED CT 21802248 / Confirmed Anxiety disorder / SNOMED CT 999448797 / Confirmed COPD (chronic obstructive pulmonary disease) / SNOMED CT 31885152 / Confirmed Osteoarthritis / SNOMED CT 8097737610 / Confirmed Hyperlipidemia / SNOMED CT 52653789 / Confirmed At risk for sleep apnea / IMO 10975839 / Confirmed, Active Problems (8) Anxiety disorder At risk for sleep apnea COPD (chronic obstructive pulmonary disease) Hyperlipidemia Hypertension Hypothyroidism Osteoarthritis SVT (supraventricular tachycardia) Histories Past Medical History: Active Problems (8) Anxiety disorder At risk for sleep apnea COPD (chronic obstructive pulmonary disease) Hyperlipidemia Hypertension Hypothyroidism Osteoarthritis SVT (supraventricular tachycardia) Family History: Significant for cancer Procedure history: Thyroidectomy (31475648). Tonsillectomy (588726657). Cholecystectomy (27092997). Tubal ligation (933249446). - Spontaneous vaginal delivery. left hip replacment. [...]
--- OUTSIDE RECORDS SUMMARY | 2024-09-10 13:00 | XMS_ITS | Encounter Summary ---
Author Organization [employer] ([place], [place], [place], [place]) Address [address] [place] [address] Care Team Providers Care Intertype Operator Name Role Phone Unavailable Primary Care Provider Grady peres Encounter Details Date Type Department Care Team (Late st Contact Info) Description 07/15/2018 Transcribed Document [facility] [place] [address] [place] [address] ProviderKristel MD [address] [place] [address] Social History Tobacco Use Types Packs/Day Years Used Date Smoking Tobacco: Never Assessed Comments Unknown Sex and Gender Information Value Date Recorded Sex Assigned at Female 09/06/2021 8:30 PM CDT Legal Sex Female 8:30 PM CDT Gender Identity Female 09/06/2021 8:30 PM CDT Sexual Orientation Not on file documented as of this encounter Miscellaneous Notes * David Conversion Note - Historical ProviderMD - 07/15/2018 [...]
--- OUTSIDE RECORDS SUMMARY | 2024-09-10 13:00 | XMS_ITS | Encounter Summary ---
Author Organization [employer] ([place], [place], [place], [place]) Address [address] [place] [address] Care Team Providers Care Medical Office Technician Name Role Phone Unavailable Primary Care Provider Unavailabl e Encounter Details Date Type Department Care Team (Late st Contact Info) Description 07/15/2018 Transcribed Document [facility] [address] [place] [address] ProviderKristel MD [address] [place] [address] Social History Tobacco Use Types [...] OT Treatment Instructions Ordered By: DEREK DURAN MD-ORKevin Active Diagnoses : No Qualifying Diagnoses Therapy [...] EDT Treatment Time : 20 Minute(s) OSCAR FRANZ OTR/L - 07/15/2018 12:28 EDT History and [...] Railing Position : Right, going up OSCAR FRANZ OTR/L - 07/15/2018 12:28 EDT Prior LOF Bathing, [...] Fine Motor Coordination Impaired : No OSCAR FRANZ OTR/L - 07/15/2018 12:28 EDT Self Care/Home Management, OT Self Feeding Assist Level, OT : Independent, complete Grooming Assist Level, OT : Independent, complete Bathing Assist Level, OT : Supervision or set-up Upper Body Dressing Assist Level, OT : Independent, complete Lower Body Dressing Assist Level, OT : Assist, minimal Toileting Assist Level : Assist, minimal Toileting Device : Commode, bedside, [id number] commode Toilet Transfer Assist Level : Assist, [...] form. Activity Tolerance, OT Activity Comment : GOOD OSCAR FRANZ OTR/L - 07/15/2018 12:28 EDT Cognition Assessment, [...] Rehabilitation Potential, OT : Good OSCAR FRANZ OTR/Mari - 07/15/2018 12:28 EDT Plan of Care, OT OT Tx Plan/Goals Established w Patient : Yes OT Frequency Rehab : Other: 3-5 x week OT Duration Rehab : Seven Days OT Treatments Planned : Activities of daily living, Functional mobility training, Safety education, Therapeutic activities, Therapeutic exercises Plan of Care Comment, OT : see OT POC. OSCAR FRANZ OTR/L - 07/15/2018 12:28 EDT Correction Goals, OT Other LTG Grid Goal #1 [...] Therapy at Discharge : Yes OSCAR FRANZ OTR/Mari - 07/15/2018 12:[address] [facility] [facility] OT Charges OT Selfcare/Hm Mgmt Ea 15 Min : 1 OT Eval Low Complexity : 1 OSCAR FRANZ OTR/Mari - 07/15/2018 12:28 EDT Electronically signed by [facility], [facility] Conversion Warehouse Logistics Coordinator Cerner at 06/29/2022 1:44 PM CDT documented in this encounter Plan of Treatment Not on file documented as of this encounter Visit Diagnoses Not on filedocumented in this encounter
--- OUTSIDE RECORDS SUMMARY | 2024-09-10 13:00 | XMS_ITS | Encounter Summary ---
Author Organization [employer] ([place], [place], [place], [place]) Address [address] [place] [address] Care Team Providers Care Painter Spray Name Role Phone Unavailable Primary Care Provider Unavailabl e Encounter Details Date Type Department Care Team (Late st Contact Info) Description 07/15/2018 Transcribed Document [facility] [place] [address] [place] [address] ProviderKristel MD [address] [place] [address] Social History Tobacco Use Types [...] 07/15/2018 6:15 EDT by Earlene Sheriff Patient Chief Medical Director Height and Weight, Clinical Dosing Height Source : Stated Height Entry Format : [place] Height, Feet : 5 ft(Converted to: 152 cm, 60 Inch) Height, Inches : 1 Inch(Converted to: 0 ft 1 Inch, 2.54 cm) Clinical Height : 154.94 cm Weight Source : Standing scale Weight Entry Format : [place] Clinical Dosing Weight : 63.18 kg Weight, Pounds : 139 lb Body Surface Area (BSA) : 1.62 m2 Body Mass Index : 26.3 kg/m2 (HI) [place] Body Weight : 47 kg Earlene Sheriff Patient Chief Medical Director - 07/15/2018 6:15 EDT Electronically signed by [facility] Conversion Whizzer Operator Cerner at 06/29/2022 1:18 PM CDT documented in this encounter Plan of Treatment Not on file documented as of this encounter Visit Diagnoses Not on filedocumented in this encounter
--- OUTSIDE RECORDS SUMMARY | 2024-09-10 13:00 | XMS_ITS | Encounter Summary ---
Author Organization [employer] ([place], [place], [place], [place]) Address [address] [place] [address] Care Team Providers Care Rotary Kiln Operator Name Role Phone Unavailable Primary Care Provider Unavailabl e Encounter Details Date Type Department Care Team (Late st Contact Info) Description 07/15/2018 Transcribed Document [facility] [place] Medicine [address] [place] [address] ProviderKristel MD [address] [place] [address] Social History Tobacco Use Types [...] LABOY /Sex: 1945 Female Med Rec #: [id number] Physician: DEREK DURAN MD-ORT Financial #: [id number] Pt. Type: I Room/Bed: 513/1 Admit/Disch: 07/15/18 04:51:00 - [place]: [facility] PreOp Case Times Entry 1 In Preop 07/15/18 05:40:00 Ready for Holding n/a Room Patient Ready for 07/15/18 07:12:00 Surgery Patient Out of Preop 07/15/18 07:25:00 Patient Out of n/a Holding Room Last Modified By: CHADWICK CHAN 07/15/18 12:29:59 SJE PreOp Case Times Audit 07/15/18 12:29:59 Hat Model: MAY Modifier: CATLETDD <+> 1 Patient Out of Preop Finalized By: CHADWICK CHAN Document Signatures Signed By: CHADWICK CHAN 07/15/18 12:30 documented in this encounter Plan of Treatment Not on file documented as of this encounter Visit Diagnoses Not on filedocumented in this encounter
--- OUTSIDE RECORDS SUMMARY | 2024-09-10 13:00 | XMS_ITS | Clinical Summary ---
Author Organization [employer] ([place], [place], [place], [place]) Address [address] [place] [address] Care Team Providers Care Group Home Counselor Name Role Phone Unavailable Primary Care Provider [...] Date Bryson rded Speak language other than Congolese at home Not on file 03/30/2023 Want [...] - 1-dose 75+ series) 2021 COVID-19 VACCINE (2023-2 5 season) 2023 05/19/2020, 04/21/2020 Falls Risk Screening 03/12/2024 Influenza Vaccine (Season Ended) 2024 01/19/2022, 12/29/2019, 12/31/2018, Additional history exists DTAP/TDAP/TD VACCINES (3 - T d or Tdap) 06/03/2031 06/02/2021, 05/16/1996 Pneumococcal 50+ years Completed 12/04/2016, 2015
--- OUTSIDE RECORDS SUMMARY | 2024-09-10 13:00 | XMS_ITS | Encounter Summary ---
Author Organization [employer] ([place], [place], [place], [place]) Address [address] [place] [address] Care Team Providers Care Cafe Cook Name Role Phone Unavailable Primary Care Provider Unavailabl e Encounter Details Date Type Department Care Team (Late st Contact Info) Description 06/28/2018 Transcribed Document [facility] [place] [address] [place] [address] ProviderKristel MD [address] [place] [address] Social History Tobacco Use Types [...] Performed On: 06/28/2018 9:57 EDT by CLARISSA GUERRERO, RN Event Note Event Date/Time : 06/28/2018 9:57 EDT Description of Event : called [facility] , spoke to Latisha, informed her that patient has a latex allergy CLARISSA GUERRERO, RN - 06/28/2018 9:57 EDT documented in this encounter Plan of Treatment Not on file documented as of this encounter Visit Diagnoses Not on filedocumented in this encounter
--- OUTSIDE RECORDS SUMMARY | 2024-09-10 13:00 | XMS_ITS | Encounter Summary ---
Author Organization [employer] ([place], [place], [place], [place]) Address [address] [place] [address] Care Team Providers Care Road Roller Engineer Name Role Phone Unavailable Primary Care Provider Unavailabl e Encounter Details Date Type Department Care Team (Late st Contact Info) Description 07/15/2018 Transcribed Document [facility] [place] [facility] [place] [address] ProviderKristel MD [address] [place] [address] Social History Tobacco Use Types [...]
--- OUTSIDE RECORDS SUMMARY | 2024-09-10 13:00 | XMS_ITS | Encounter Summary ---
Author Organization [employer] ([place], [place], [place], [place]) Address [address] [place] [address] Care Team Providers Care Lamp Cleaner Street Light Name Role Phone Unavailable Primary Care Provider Unavailabl e Encounter Details Date Type Department Care Team (Late st Contact Info) Description 07/22/2018 Transcribed Document [facility] [place] [address] [place] [address] ProviderKristel MD [address] [place] [address] Social History Tobacco Use Types [...] Cerner Conversion Note - Kristel ProviderMD - 07/22/2018 12:50 PM CDT UM Authorization Entered On: 07/22/2018 12:50 EDT Performed On: 07/22/2018 12:50 EDT by LYNN REID RN-Utilization Review Primary Insurance Authorization Authorization and Policy Numbers : Insurance 1 Health Plan: [employer] PPO Policy Number: [id number] Authorization Number: [id number] Insurance Primary Name : [employer] Medicare Authorization Status-Primary : Notification only Reference Number-Primary : [id number] Authorization Number-Primary : [id number] Authorized Service Begin Date-Primary : 07/15/2018 EDT Authorization Comments-Primary : approved per availity for inpt Historical Authorization Comments-Primary : Comment 1: Uploaded clinicals to [employer] Medicare via [employer] by . (ERICK JONES RN-Utilization Review 07/15/2018 15:49) LYNN REID RN-Utilization Review - 07/22/2018 12:50 EDT Electronically signed by [facility], [facility] Conversion Die Casting Machine Maintainer Cerner at 06/29/2022 1:34 PM CDT documented in this encounter Plan of Treatment Not on file documented as of this encounter Visit Diagnoses Not on filedocumented in this encounter
--- OUTSIDE RECORDS SUMMARY | 2024-09-10 13:00 | XMS_ITS | Encounter Summary ---
Author Organization [employer] ([place], [place], [place], [place]) Address [address] [place] [address] Care Team Providers Care Wood Cabinet Finisher Name Role Phone Unavailable Primary Care Provider Unavailabl e Encounter Details Date Type Department Care Team (Late st Contact Info) Description 07/15/2018 Transcribed Document [facility] [place] [address] [place] [address] ProviderKristel MD [address] [place] [address] Social History Tobacco Use [...] Obtained From : Patient Primary Language : Venezuelan Preferred Communication Mode : Verbal Communication Barrier [...] Level : 46 or > High Risk [place] Fall Interventions : Adequate lighting, Bed in [...] : Refuses FDA approved medications Implant/Device Type, Financial Investment Manager and Model : left hip replacement, poss. [...] 06/28/2018 10:15:29 EDT by CLARISSA GUERRERO, LISANDRO) Substance Abuse: Drug Use Hx: No. (Last Updated: 06/28/2018 10:15:29 EDT by CLARISSA GUERRERO, LISANDRO) Height and Weight, Clinical Dosing Height Source : Stated Height Entry Format : [place] Height, Feet : 5 ft(Converted to: 152 cm, 60 Inch) Height, Inches : 1 Inch(Converted to: 0 ft 1 Inch, 2.54 cm) Clinical Height : 154.94 cm Weight Source : Standing scale Weight Entry Format : [place] Clinical Dosing Weight : 63.18 kg Weight, Pounds : 139 lb Body Surface Area (BSA) : 1.62 m2 Body Mass Index : 26.3 kg/m2 (HI) [place] Body Weight : 47 kg Nilda Claros [...] - 07/15/2018 16:39 EDT Electronically signed by Rosario, Tatiana Conversion Instructional Design Consultant Cerner at 06/29/2022 1:19 PM CDT documented in this encounter Plan of Treatment Not on file documented as of this encounter Visit Diagnoses Not on filedocumented in this encounter
--- OUTSIDE RECORDS SUMMARY | 2024-09-10 13:00 | XMS_ITS | Encounter Summary ---
Author Organization [employer] ([place], [place], [place], [place]) Address [address] [place] [address] Care Team Providers Care Patent Examiner Name Role Phone Unavailable Primary Care Provider Unavailabl e Encounter Details Date Type Department Care Team (Late st Contact Info) Description 07/15/2018 Transcribed Document [facility] [place] Family Medicine [address] [place] [address] ProviderKristel MD [address] [place] [address] Social History Tobacco Use Types [...] Source : Stated Height Entry Format : [place] Height, Feet : 5 ft(Converted to: 152 cm, 60 Inch) Height, Inches : 1 Inch(Converted to: 0 ft 1 Inch, 2.54 cm) Clinical Height : 154.94 cm Weight Source : Standing scale Weight Entry Format : [place] Clinical Dosing Weight : 63.18 kg Weight, Pounds : 139 lb Body Surface Area (BSA) : 1.62 m2 Body Mass Index : 26.3 kg/m2 (HI) [place] Body Weight : 47 kg Nicole Coley Rn - 07/15/2018 6:34 EDT Health Histories Smoking Status : 10 or more cigarettes (1/2 pack or more)/day in last 30 days Smokeless Tobacco Status : Never Desires Tobacco Cessation Medication : No Reason for No Tobacco Cessation Medication : Refuses FDA approved medications Implant/Device Type, Wastewater Supervisor and Model : left hip replacement, poss. [...] Copy Advance Directive Verified/on Chart : No Nicole Coley Rn - 07/15/2018 6:52 EDT Spiritual/Cultural Needs [...] Obtained From : Patient Primary Language : British Preferred Communication Mode : Verbal Communication Barrier [...] Access : Yes Get Gait/Transferring : Weak Sanchez Mental Status : Oriented to own ability Sanchez Fall Risk Score : 45 SANCHEZ Fall Scale Risk Level : 25-45 Medium Risk [place] Jon Fall Interventions : Adequate lighting, Bed in [...] rendition version of the form. Maggi Coma [place] Best Motor Response : Obey commands Maggi Best Verbal Response : Oriented [place] Eye Opening Response : Spontaneous Maggi Coma Score : 15 Nicole Coley Rn - 07/15/2018 6:34 EDT documented in this encounter Plan of Treatment Not on file documented as of this encounter Visit Diagnoses Not on filedocumented in this encounter
--- OUTSIDE RECORDS SUMMARY | 2024-09-10 13:00 | XMS_ITS | Encounter Summary ---
Author Organization [employer] ([place], [place], [place], [place]) Address [address] [place] [address] Care Team Providers Care Social Insurance Administrator Name Role Phone Unavailable Primary Care Provider Unavailabl e Encounter Details Date Type Department Care Team (Late st Contact Info) Description 07/15/2018 Transcribed Document [facility] [place] [address] [place] [address] ProviderKristel MD [address] [place] [address] Social History Tobacco Use Types [...] Kristel ProviderMD - 07/15/2018 8:01 AM CDT [facility] Main OR PACU Summary Primary Physician: DEREK DURAN MD-ORKevin Finalized Date/Time: 07/15/18 10:28:25 Pt. Name: EDSON LABOY /Sex: 1945 Female Med Rec #: [id number] Physician: DEREK DURAN MD-ORT Financial #: [id number] Pt. Type: I Room/Bed: 3/ Admit/Disch: 07/15/18 04:51:00 - Institution: [facility] OR PACU Case Times Entry 1 In PACU I 07/15/18 09:21:00 Ready for PACU 07/15/18 09:51:00 Discharge Discharge from PACU 07/15/18 10:10:00 I Last Modified By: Nikki Wang RN 07/15/18 10:27:52 [facility] Main OR PACU Case Times Audit 07/15/18 10:27:52 Integration Software Engineer: HELFEP Modifier: HELFEP <+> 1 Ready for PACU Discharge <+> 1 Discharge from PACU I [facility] Main OR PACU Acuity Entry 1 Start Time 07/15/18 09:51:00 Stop Time 07/15/18 10:10:00 Acuity Level [facility] PACU Acuity I Last Modified By: Nikki Wang RN 07/15/18 10:28:21 Finalized By: Nikki Wang RN Document Signatures Signed By: Nikki Wang RN 07/15/18 10:28 Electronically signed by Rosario [facility] Conversion Reheater Cerner at 06/29/2022 1:40 PM CDT documented in this encounter Plan of Treatment Not on file documented as of this encounter Visit Diagnoses Not on filedocumented in this encounter
--- OUTSIDE RECORDS SUMMARY | 2024-09-10 13:00 | XMS_ITS | Encounter Summary ---
Author Organization Healthcare Address [address] [place] [address] Care Team Providers Care Gift Wrapper Name Role Phone Nae Cortés SOCK KNITTING MACHINE OPERATOR Primary Care Provider [phone] Encounter Details Date Type Department Care Team (Late Contact Info) Description 09/05/2024 Orders Only [facility] [address] [place] [address] Hedy Wright Stage 3 chronic kidney disease, unspecified whether stage 3a or 3b CKD (CMS/HCC) (Primary Dx); Vitamin D insufficiency Social History Tobacco Use Types Packs/Day Years [...] [place] [facility] [address] [facility] [address] [place] [address] Bjorn Galarza MD [address] [facility] [address] [place] [address] 10/20/2024 11:00 AM EDT Office Visit [facility] Nephrology, Bone & Mineral Metabolism [address] [facility], [address] [place] [address] Sergei Gan MD [address] [place] [phone] Scheduled Orders Name Type Priority Associated Diagnoses Orde r Schedule Renal Function Panel, Plasma Lab Routine Stage 3 chronic kidney disease, unspecified whether stage 3a or 3b CKD (CMS/HCC) Expected: 09/05/2024 (Approximate), Expires: 03/07/2026 CBC and Differential Lab Routine Stage 3 chronic kidney disease, unspecified whether stage 3a or 3b CKD (CMS/HCC) Expected: 09/05/2024 (Approximate), Expires: 03/07/2026 Creatinine, Random, Urine Lab Routine Stage 3 chronic kidney disease, unspecified whether stage 3a or 3b CKD (CMS/HCC) Expected: 09/05/2024 (Approximate), Expires: 03/07/2026 Protein, Random, Urine with Creatinine Lab Routine Stage 3 chronic kidney disease, unspecified whether stage 3a or 3b CKD (CMS/HCC) Expected: 09/05/2024 (Approximate), Expires: 03/07/2026 Urinalysis with reflex microscopic (Culture NOT Included) Lab Routine Stage 3 chronic kidney disease, unspecified whether stage 3a or 3b CKD (CMS/HCC) Expected: 09/05/2024 (Approximate), Expires: 03/07/2026 PTH Intact Total Lab Routine Stage 3 chronic kidney disease, unspecified whether stage 3a or 3b CKD (CMS/HCC) Vitamin D insufficiency Expected: 09/05/2024 (Approximate), Expires: 03/07/2026 Vitamin D 25 Hydroxy Lab Routine Stage 3 chronic kidney disease, unspecified whether stage 3a or 3b CKD (CMS/HCC) Vitamin D insufficiency Expected: 09/05/2024 (Approximate), Expires: 03/07/2026 documented as of this encounter Visit Diagnoses Diagnosis Stage 3 chronic kidney disease, unspecified whether stage 3a or 3b CKD (CMS/HCC)- Primary Vitamin D insufficiency documented in this encounter Care Teams Gift Wrapper Relationship Specialty Start Date End Date Nae Cortés APRN [facility] [id number] PCP - General 09/05/24 documented as of this encounter
--- OUTSIDE RECORDS SUMMARY | 2024-09-10 13:00 | XMS_ITS | Encounter Summary ---
Author Organization [employer] ([place], [place], [place], [place]) Address [address] [place] [address] Care Team Providers Care Nozzle Worker Name Role Phone Unavailable Primary Care Provider Unavailabl e Encounter Details Date Type Department Care Team (Late st Contact Info) Description 07/15/2018 Transcribed Document [facility] Family Medicine [address] [place] [address] ProviderKristel MD [address] [place] [address] Social History Tobacco Use Types [...] belt, Walker, front wheel DANA PALMA OTR/L 07/16/2018 10:58 EDT Functional Mobility Functional MobilityComment [...] will be discharging home DANA PALMA OTR/L 07/16/2018 10:58 EDT Fdc Goals, OT Other LTG Grid Goal #1 [...] OTR/Mari - 07/16/2018 10:58 EDT DANA PALMA OTR/L - 07/16/2018 10:58 EDT Treatment Note Subjective Comment : pt agrees to tx Additional Objective Information : ADL Assessment : pt met 3/ acute care OT goals Plan for Treatment [...]
--- OUTSIDE RECORDS SUMMARY | 2024-09-10 13:00 | XMS_ITS | Encounter Summary ---
Author Organization [employer] ([place], [place], [place], [place]) Address [address] [place] [address] Care Team Providers Care Reservationist Name Role Phone Unavailable Primary Care Provider Unavailmorris e Encounter Details Date Type Department Care Team (Late st Contact Info) Description 07/15/2018 Transcribed Document [facility] [place] Family Medicine [address] [place] [address] ProviderKristel MD [address] [place] [address] Social History Tobacco Use Types [...]
--- OUTSIDE RECORDS SUMMARY | 2024-09-10 13:00 | XMS_ITS | Encounter Summary ---
Author Organization [employer] ([place], [place], [place], [place]) Address [address] [place] [address] Care Team Providers Care Risk Reduction Counselor Name Role Phone Unavailable Primary Care Provider Unavailabl e Encounter Details Date Type Department Care Team (Late st Contact Info) Description 07/15/2018 Transcribed Document [facility] [place] Family Medicine [address] [place] [address] ProviderKristel MD [address] [place] [address] Social History Tobacco Use Types [...] LABOY /Sex: 1945 Female Med Rec #: [id number] Physician: DEREK DURAN MD-ORT Financial #: [id number] Pt. Type: I Room/Bed: / Admit/Disch: 07/15/18 04:51:00 - Institution: [facility] IntraOp Case Attendance Entry 1 Entry 2 Entry 3 Case Attendee Ney Ann ST Austin, Martha Wells RN Role Performed Scrub, Second Scrub, First Heritage Consultant, First Time In 07/15/18 07:28:00 07/15/18 07:28:00 [...] Brown, Frankie Brooks, Aysha Guerra MD-ORT Tech Assembling Motor Builder Role Performed Surgeon/Proceduralist, Assistive Personnel Investigation Specialist First Time In 07/15/18 07:59:00 07/15/18 07:28:00 [...] Entry 8 Entry 9 Case Attendee CLARITZA VEGAS CSA LUNSFORD, JAMES, PASSENGER CONDUCTOR MAHAMED BE, PAC Role Performed Ice Cream Van Vendor, First PASSENGER CONDUCTOR/Nurse Jigger Crown Pouncing Machine Operator Physician political science research assistant Time In 07/15/18 07:28:00 07/15/18 [...] [facility] IntraOp Case Attendance Audit 07/15/18 09:35:34 Brassiere Cup Mold Cutter: KARLOS Modifier: KARLOS 8 <+> Time Out 8 <*> Procedure Hip Total Anterior Approach 9 <+> Time Out 9 <*> Procedure Hip Total Anterior Approach 10 <+> Time Out 10 <*> Procedure Hip Total Anterior Approach 07/15/18 09:35:33 Brassiere Cup Mold Cutter: KARLOS Modifier: KARLOS 1 <+> Time Out [...] Procedure Hip Total Anterior Approach 07/15/18 08:26:33 Brassiere Cup Mold Cutter: KARLOS Modifier: KARLOS 7 <+> Time Out 7 <*> Procedure Hip Total Anterior Approach 9 <*> Time In 07/15/18 07:28:00 9 <*> Procedure Hip Total Anterior Approach 07/15/18 08:01:40 Brassiere Cup Mold Cutter: KARLOS Modifier: KARLOS 1 <*> Case Attendee DEREK DURAN MD-ORKevin 1 <*> Role Performed Surgeon/Proceduralist, First 1 <*> Time In 07/15/18 07:28:00 1 <*> Procedure Hip Total Anterior Approach 2 <*> Case Attendee Martha Torrez, RN 2 <*> Role Performed Heritage Consultant, First 2 <*> Time In 07/15/18 07:28:00 [...] Approach 5 <*> Case Attendee Deedee Brown, Rd Mechanical Engineer 5 <*> Role Performed Assistive Personnel 5 <*> Time In 07/15/18 07:28:00 5 <*> Procedure Hip Total Anterior Approach 6 <*> Case Attendee CLARITZA VEGAS, CSA 6 <*> Role Performed Ice Cream Van Vendor, First 6 <*> Time In 07/15/18 07:28:00 6 <*> Procedure Hip Total Anterior Approach 7 <*> Case Attendee MAHAMED BE, MIGUELINA 7 <*> Role Performed Physician political science research assistant 7 <*> Time In 07/15/18 07:28:00 7 <*> Procedure Hip Total Anterior Approach 8 <*> Case Attendee OTHER, ATTENDEE 8 <*> Role Performed Vendor 8 <*> Time In 07/15/18 07:28:00 8 <*> Procedure Hip Total Anterior Approach 8 <-> Other Attendee JER DIXON 9 <*> Case Attendee Aysha Brooks, Assembling Motor Builder 9 <*> Role Performed Investigation Specialist 9 <*> Time In 07/15/18 07:28:00 9 <*> Procedure Hip Total Anterior Approach 10 <*> Case Attendee CELSO QUISPE CRNA 10 <*> Role Performed PASSENGER CONDUCTOR/Nurse Jigger Crown Pouncing Machine Operator 10 <+> Time In 10 <*> Procedure Hip Total Anterior Approach 10 <+> Other Attendee 07/15/18 07:52:23 Brassiere Cup Mold Cutter: KARLOS Modifier: KARLOS 1 <+> Time In [...] [facility] IntraOp Case Times Audit 07/15/18 09:35:17 Brassiere Cup Mold Cutter: KARLOS Modifier: JORDYNBLAND <+> 1 Out Room Time <+> 1 Stop Time 07/15/18 09:08:56 Brassiere Cup Mold Cutter: KARLOS Modifier: JORDYNBLAND <+> 1 Stop Time 07/15/18 08:01:26 Brassiere Cup Mold Cutter: MARTHABLAND Modifier: JORDYNBLAND <+> 1 Start Time [facility] [...] [facility] IntraOp Counts Verification Audit 07/15/18 08:50:53 Brassiere Cup Mold Cutter: KARLOS Modifier: SALENAAND <+> 2 Procedure <+> [...] RN 07/15/18 07:07:36 [facility] IntraOp General Case Flagger 1 Case Information OR OR 01 E Case Level 1 Room Verified Yes Wound Class I - Clean Specialty SN Orthopedic Anesthesia Type General ASA Class 4 Diagnosis Preop Diagnosis DJD RIGHT HIP Postop Same As Preop No Postop Diagnosis DICTATED BY MD Last Modified By: Martha Torrez RN 07/15/18 07:53:11 [facility] IntraOp General Case Data Audit 07/15/18 07:53:11 Brassiere Cup Mold Cutter: KARLOS Modifier: KARLOS <+> 1 ASA Class <+> 1 Preop Diagnosis [facility] IntraOp Implant Log Entry 1 Entry 2 Entry 3 Type Implant (Synthetic) Implant (Synthetic) Implant (Synthetic) Implant Log Implant Type Hardware Hardware Hardware Tissue Implant Type Implant SHELL ACET LOGICAL 48MM LNER LGCL CP 50MM STEM HIP COXA CLLR Identification -[id number] ORIGIN [id number] Description Implant Quantity 1 1 1 Implant Site RIGHT HIP RIGHT HIP RIGHT HIP Implant Identification Model Number Implant Identification Serial Number Implant [id number] Identification Lot Number Implant Paxeon Reconstruction Paxeon Reconstruction Paxeon Reconstruction Identification Biochemistry Technician Name: Implant [id number] Identification Catalog Number Implant Size Implant Has an Yes Yes Yes Expiration Date Implant Expiration 06/10/23 02/08/23 04/11/23 Date Wasted Radioactive Material Time Implanted Tissue Implant Continue for Tissue Implant Documentation Tissue Identification Number Graft Prep Per Biochemistry Technician Instructions: Tissue Preparation Method: Reconstitution Solution: Reconstitution Solution Lot Number Reconstitution Solution Expiration Date: Thawing Solution Thawing Solution Lot Number Thawing Solution Expiration Date Preparation Materials, Other Preparation Materials, Other Lot Number Preparation Materials, Other Expiration Date Tissue Prepared/Processed By Biochemistry Technician Paperwork Completed Implant Type Comment Last Modified By: Martha Torrez RN Bland, Jordyn A, RN Bland, Jordyn A, RN 07/15/18 08:26:09 07/15/18 08:26:09 07/15/18 08:47:20 Entry 4 Type Implant (Synthetic) Implant Log Implant Type Hardware Tissue Implant Type Implant HEAD FEM CERC [id number] 32MM Identification -[id number] Description Implant Quantity 1 Implant Site RIGHT HIP Implant Identification Model Number Implant Identification Serial Number Implant [id number] Identification Lot Number Implant Paxeon Reconstruction Identification Biochemistry Technician Name: Implant [id number] Identification Catalog Number Implant Size Implant Has an Yes Expiration Date Implant Expiration 04/11/23 Date Wasted Radioactive Material Time Implanted Tissue Implant Continue for Tissue Implant Documentation Tissue Identification Number Graft Prep Per Biochemistry Technician Instructions: Tissue Preparation Method: Reconstitution Solution: Reconstitution Solution Lot Number Reconstitution Solution Expiration Date: Thawing Solution Thawing Solution Lot Number Thawing Solution Expiration Date Preparation Materials, Other Preparation Materials, Other Lot Number Preparation Materials, Other Expiration Date Tissue Prepared/Processed By Biochemistry Technician Paperwork Completed Implant Type Comment Last Modified By: Martha Torrez RN 07/15/18 08:47:20 [facility] IntraOp Implant Log Audit 07/15/18 08:47:20 Brassiere Cup Mold Cutter: KARLOS Modifier: KARLOS <+> 3 Implant Identification Description <+> 3 Implant Identification Lot Number <+> 3 Implant Identification Biochemistry Technician Name: <+> 3 Implant Expiration Date <+> 3 Implant Identification Catalog Number <+> 4 Implant Identification Description <+> 4 Implant Identification Lot Number <+> 4 Implant Identification Biochemistry Technician Name: <+> 4 Implant Expiration Date <+> 4 Implant Identification Catalog Number 07/15/18 08:26:09 Brassiere Cup Mold Cutter: KARLOS Modifier: KARLOS <+> 1 Implant Identification Description <+> 1 Implant Identification Lot Number <+> 1 Implant Identification Biochemistry Technician Name: <+> 1 Implant Expiration Date <+> 1 Implant Identification Catalog Number <+> 2 Implant Identification Description <+> 2 Implant Identification Lot Number <+> 2 Implant Identification Biochemistry Technician Name: <+> 2 Implant Expiration Date <+> 2 Implant Identification Catalog Number 07/15/18 07:54:53 Brassiere Cup Mold Cutter: KARLOS Modifier: KARLOS <+> 3 Implant Site [...] vancomycin 1Gm vial - ANESTHETIC 1000MG/10 ML [id number] COCKTAIL-ROGER [id number] Combo Med List Time Administered Route of TOPICAL; MIXED W/ 25ML TOPICAL INJECTION Administration NACL Dose Dose 1000 1 Unit of Measure mg gram Volume 10ML Administered By DEREK DURAN CHRISTENSEN, ROGER REED CHRISTIAN, MD-ORT -ORT MD-ORT Procedure Irrigation Irrigant Volume In Irrigant [...] IN BOOT Positioned By CLARITZA VEGAS CSA, LUNSFORD, JAMES, LUIS, Deedee Brown, Frankie Martell, Martha Torrez, [...] Intra Op Sign Out Audit 07/15/18 09:35:26 Brassiere Cup Mold Cutter: KARLOS Modifier: KARLOS <+> 1 RN Sign [...] [facility] IntraOp Surgical Procedures Audit 07/15/18 09:08:57 Brassiere Cup Mold Cutter: KARLOS Modifier: KARLOS <+> 1 Start <+> [...] [facility] IntraOp Time Out Audit 07/15/18 08:01:30 Brassiere Cup Mold Cutter: KARLOS Modifier: KARLOS 1 <+> Time Out Pause Time 1 <*> Procedure to be Performed Hip Total Anterior Approach 07/15/18 07:56:31 Brassiere Cup Mold Cutter: KARLOS Modifier: KARLOS 1 <+> Beta Pat Administered 1 <*> Procedure to be Performed Hip Total Anterior Approach [facility] IntraOp X-Ray and Images Entry 1 X-Ray/Imaging Type Fluoroscopy Fluoroscopy Type C-Arm Site RIGHT HIP Inside Wirer Name Aysha Brooks, Assembling Motor Builder Protective Devices Yes Used Last Modified By: Martha Torrez RN 07/15/18 07:56:43 Case Comments <None> Finalized By: Martha Torrez, RN Document Signatures Signed By: Martha Torrez RN 07/15/18 09:37 documented in this encounter Plan of Treatment Not on file documented as of this encounter Visit Diagnoses Not on filedocumented in this encounter
--- OUTSIDE RECORDS SUMMARY | 2024-09-10 13:00 | XMS_ITS | Encounter Summary ---
Author Organization [facility] ([place], [place], [place], [place]) Address [address] [place] [address] Care Team Providers Care It Manager Name Role Phone Unavailable Primary Care Provider Unavailabl e Encounter Details Date Type Department Care Team (Late st Contact Info) Description 07/16/2018 Transcribed Document [facility] [place] Family Medicine [facility] [address] ProviderKristel MD [address] [place] [address] Social History Tobacco Use Types [...]
--- OUTSIDE RECORDS SUMMARY | 2024-09-10 13:00 | XMS_ITS | Encounter Summary ---
Author Organization [employer] ([place], [place], [place], [place]) Address [address] [place] [address] Care Team Providers Care Arcade Games Mechanic Name Role Phone Unavailable Primary Care Provider Unavailabl e Encounter Details Date Type Department Care Team (Late st Contact Info) Description 07/15/2018 Transcribed Document [facility] [place] Family Medicine [address] [place] [address] ProviderKristel MD [address] [place] [address] Social History Tobacco Use Types [...] Performed On: 07/15/2018 11:14 EDT by VERO TAMEZ PT General Information, PT Visit Type, PT [...] : Right Right UE Active ROM : [facility] Right UE Strength : [facility] Left UE Active ROM : [facility] Left UE Strength : [facility] VEOR TAMEZ, PT - 07/15/2018 12:39 EDT Lower Extremity RLE Active ROM : Impaired Right LE Strength : Impaired LLE Active ROM : WF Left LE Strength : WFL Lower Extremity Comment : RLE is impaired secondary to surgery 3/5 grossly assessed LLE is WF's VERO TAMEZ, PT - 07/15/2018 12:39 EDT [...] VERO TAMEZ, PT - 07/15/2018 12:39 EDT Fdc Goals Other PT LTG Grid Goal #1 [...] VERO TAMEZ, PT - 07/15/2018 12:[address] [facility] PT Charges Gait Training Each 15 Min : 1 PT Eval Low Complexity : 1 VERO TAMEZ, PT - 07/15/2018 12:39 EDT documented in this encounter Plan of Treatment Not on file documented as of this encounter Visit Diagnoses Not on filedocumented in this encounter
--- OUTSIDE RECORDS SUMMARY | 2024-09-10 13:00 | XMS_ITS | Encounter Summary ---
Author Organization [employer] ([place], [place], [place], [place]) Address [address] [place] [address] Care Team Providers Care Instrumentation Technician Name Role Phone Unavailable Primary Care Provider Unavailabl e Encounter Details Date Type Department Care Team (Late st Contact Info) Description 07/19/[address] [facility] [place] Family Medicine [address] [place] [address] ProviderKristel MD [address] [place] [address] Social History Tobacco Use Types [...] : First call, Left message MICHELLE KAY, LISANDRO - 07/19/2018 10:31 EDT documented in this encounter Plan of Treatment Not on file documented as of this encounter Visit Diagnoses Not on filedocumented in this encounter
--- OUTSIDE RECORDS SUMMARY | 2024-09-10 13:01 | XMS_ITS | Encounter Summary ---
Author Organization [employer] ([place], [place], [place], [place]) Address [address] [place] [address] Care Team Providers Care Perinatal Social Worker Name Role Phone Unavailable Primary Care Provider Unavailabl e Encounter Details Date Type Department Care Team (Late st Contact Info) Description 07/16/2018 Transcribed Document [facility] [place] Family Medicine [address] [place] [address] ProviderKristel MD [address] [place] [address] Social History Tobacco Use Types [...] Kristel ProviderMD - 07/16/2018 12:02 [place] [address] CINDY LABOY :1945 Visit Time:07/15/2018 Your Visit Summary Your Care Team Admitting Physician - RONAL ROBERT MD Attending Physician - DEREK DURAN MD-MENDYT Primary Care Physician - RANDAL ALBARADO (REF)MD-[facility] Referring Physician - DEREK DURAN MD-ORT Your Diagnosis S/P total hip arthroplasty Unilateral primary osteoarthritis, right hip, Unilateral primary osteoarthritis, right hip These Are Your Goals I want to mow the yard. Interventions: Work with PT Discharge Vitals Heart Rate 72 Blood Pressure 105/62 What to do next Instructions From Your Care Team [facility], PT WILL NEED TO INFORM HOME HEALTH DIRECTLY OF WHEN SHE WILL CHANGE 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 TO HER OWN HOME [phone] PT HAS ALL NEEDED DME Follow-Up Appointments Follow Up with JAIDEN LEBRON PA-C When 08/26/2018 10:00 AM EDT Comments Appointment has been made Where: [address] [facility] [address] [place] [address]- Follow Up with Follow up with primary [...] Barley. Bulgur wheat. Millet. Bran muffins. Popcorn. [place] wafer crackers. Vegetables Sweet potatoes. Spinach. Kale. Artichokes. Cabbage. Broccoli. Green peas. Carrots. Squash. Fruits Berries. Pears. Apples. Oranges. Avocados. Prunes and raisins. Dried figs. Meats and Other Protein Sources [place], kidney, [place], and soy beans. Split peas. [...] gabriel has 11 g of protein. ??? [place] seeds ??? 1 oz has 5.5 g [...] floor. ??? Place frequently used items in kcfb-qi-yajxl places ??? Keep electrical cables out of [...] ??? Using the bathroom. ??? Using household electrical integrator or toxic chemicals. ??? Touching or taking [...] Assistance with quitting is available by contacting 2-237-VTNK-NOW. This is a free resource providing counseling, [...] Be sure to sign up for the [facility] patient portal, which gives you 02/10 access to your medical information ??? including these discharge instructions ??? using your computer, smartphone, or tablet. Just go to Zauber to get started. Questions? Call . Test [...] was given the opportunity to ask questions. Patient/Fabric Coating Supervisor Name: Patient/Fabric Coating Supervisor Signature: Relationship to Patient: Clinician/Hospital Fabric Coating Supervisor Signature: Date: documented in this encounter Plan of Treatment Not on file documented as of this encounter Visit Diagnoses Not on filedocumented in this encounter
--- OUTSIDE RECORDS SUMMARY | 2024-09-10 13:01 | XMS_ITS | Encounter Summary ---
Author Organization [employer] ([place], [place], [place], [place]) Address [address] [place] [address] Care Team Providers Care Immigration Patrol Inspector Name Role Phone Unavailable Primary Care Provider Unavailabl e Encounter Details Date Type Department Care Team (Late st Contact Info) Description 07/16/2018 Transcribed Document [facility] [place] [address] [place] [address] ProviderKristel MD [address] [place] [address] Social History Tobacco Use Types [...] 07/16/2018 9:54 EDT by NAYA MINOR Care Management-Health Coach Final Discharge Planning Discharge Arrangements : Patient Post-Acute Information Patient Name: CINDY BRAXTON Gender: Female : [birth year] Age: 73 Years No Post-Acute Placement(s) Listed No Post-Acute Service(s) Listed No [place] Referral(s) Listed NAYA MINOR, Care Management-Health Coach - 07/16/2018 9:54 EDT Accts Placement Outside [facility] Account #1 Service : [employer] [facility] Organization : PHYSICAL THERAPY NAYA MINOR Care Management-Health Coach - 07/16/2018 9:54 EDT Discharge To Care Management : Home Health Services (Related/SOC within 3 days)-06 NAYA MINOR Care Management-Health Coach - 07/16/2018 9:54 EDT Electronically signed by Rosario [facility] Conversion Delivery Tech Cerner at 06/29/2022 1:31 PM CDT documented in this encounter Plan of Treatment Not on file documented as of this encounter Visit Diagnoses Not on filedocumented in this encounter
--- OUTSIDE RECORDS SUMMARY | 2024-09-10 13:01 | XMS_ITS | Encounter Summary ---
Author Organization [employer] ([place], [place], [place], [place]) Address [address] [place] [address] Care Team Providers Care Press Supervisor Name Role Phone Unavailable Primary Care Provider Grady peres Encounter Details Date Type Department Care Team (Late st Contact Info) Description 07/16/2018 Transcribed Document [facility] [place] Family Medicine [address] [place] [address] ProviderKristel MD [address] [place] [address] Social History Tobacco Use Types [...]
--- OUTSIDE RECORDS SUMMARY | 2024-09-10 13:01 | XMS_ITS | Encounter Summary ---
Author Organization [employer] ([place], [place], [place], [place]) Address [address] [place] [address] Care Team Providers Care Guidance Director Name Role Phone Unavailable Primary Care Provider Unavailabl e Encounter Details Date Type Department Care Team (Late st Contact Info) Description 07/16/2018 Transcribed Document [facility] [place] [address] [place] [address] ProviderKristel MD [address] [place] [address] Social History Tobacco Use Types [...] On: 07/16/2018 9:10 EDT by Meche Oshea election judge Documentation Patient Disposition, General : Discharge Discharge [...] Meche Oshea RN - 07/16/2018 9:10 EDT Electronically signed by Rosario [facility] [place] Conversion Treatment Coordinator Cerner at 06/29/2022 1:27 PM CDT documented in this encounter Plan of Treatment Not on file documented as of this encounter Visit Diagnoses Not on filedocumented in this encounter
--- OUTSIDE RECORDS SUMMARY | 2024-09-10 13:01 | XMS_ITS | Encounter Summary ---
Author Organization [employer] ([place], [place], [place], [place]) Address [address] [place] [address] Care Team Providers Care Rn Pediatric Name Role Phone Unavailable Primary Care Provider Unavailmorris e Encounter Details Date Type Department Care Team (Late st Contact Info) Description 07/16/2018 Transcribed Document [facility] [place] Family Medicine [address] [place] [address] ProviderKristel MD [address] [place] [address] Social History Tobacco Use Types [...]
--- OUTSIDE RECORDS SUMMARY | 2024-09-10 13:01 | XMS_ITS | Encounter Summary ---
Author Organization [employer] ([place], [place], [place], [place]) Address [address] [place] [address] Care Team Providers Care Electric Range Preparer Name Role Phone Unavailable Primary Care Provider Unavailabl e Encounter Details Date Type Department Care Team (Late st Contact Info) Description 07/16/2018 Transcribed Document [facility] [place] Family Medicine [address] [place] [address] ProviderKristel MD [address] [place] [address] Social History Tobacco Use Types [...]
--- OUTSIDE RECORDS SUMMARY | 2024-09-10 13:01 | XMS_ITS | Encounter Summary ---
Author Organization [employer] ([place], [place], [place], [place]) Address [address] [place] [address] Care Team Providers Care Chair Trimmer Name Role Phone Unavailable Primary Care Provider Unavailabl e Encounter Details Date Type Department Care Team (Late st Contact Info) Description 07/16/2018 Transcribed Document [facility] Radiology [address] [place] [address] Ronal Robert MD [address] [place] [address] Social History Tobacco Use Types Packs/Day [...] tab QHS Primary Care Provider RANDAL ALBARADO (REF)MD-[facility] Time spent 35 minutes documented in this encounter Plan of Treatment Not on file documented as of this encounter Visit Diagnoses Not on filedocumented in this encounter
--- OUTSIDE RECORDS SUMMARY | 2024-09-10 13:01 | XMS_ITS | Encounter Summary ---
Author Organization [employer] ([place], [place], [place], [place]) Address [address] [place] [address] Care Team Providers Care Baggage Security Checker Name Role Phone Unavailable Primary Care Provider Unavailabl e Encounter Details Date Type Department Care Team (Late st Contact Info) Description 07/16/2018 Transcribed Document [facility] [place] Family Medicine [address] [place] [address] ProviderKristel MD [address] [place] [address] Social History Tobacco Use Types [...]
--- OUTSIDE RECORDS SUMMARY | 2024-09-10 13:01 | XMS_ITS | Encounter Summary ---
Author Organization [employer] ([place], [place], [place], [place]) Address [address] [place] [address] Care Team Providers Care Beef Lugger Name Role Phone Unavailable Primary Care Provider Unavailabl e Encounter Details Date Type Department Care Team (Late st Contact Info) Description 07/16/2018 Transcribed Document [facility] [place] Family Medicine [address] [place] [address] ProviderKristel MD [address] [place] [address] Social History Tobacco Use Types [...] Kristel ProviderMD - 07/16/2018 12:10 [place] [address] CINDY LABOY :1945 Visit Time:07/15/2018 Your Visit Summary Your Care Team Admitting Physician - RONAL ROBERT MD Attending Physician - DEREK DURAN MD-MENDYT Primary Care Physician - RANDAL ALBARADO (REF)[facility] Referring Physician - DEREK DURAN MD-ORT Your Diagnosis S/P total hip arthroplasty Unilateral primary osteoarthritis, right hip, Unilateral primary osteoarthritis, right hip These Are Your Goals I want to mow the yard. Interventions: Work with PT Discharge Vitals Heart Rate 72 Blood Pressure 105/62 What to do next Instructions From Your Care Team [facility], PT WILL NEED TO INFORM HOME HEALTH DIRECTLY OF WHEN SHE WILL CHANGE 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 TO HER OWN HOME [phone] PT HAS ALL NEEDED DME Follow-Up Appointments Follow Up with JAIDEN LEBRON PA-C When 08/26/2018 10:00 AM EDT Comments Appointment has been made Where: [address] [facility] [address] [place] [address]- Follow Up with Follow up with primary [...] Barley. Bulgur wheat. Millet. Bran muffins. Popcorn. [place] wafer crackers. Vegetables Sweet potatoes. Spinach. Kale. Artichokes. Cabbage. Broccoli. Green peas. Carrots. Squash. Fruits Berries. Pears. Apples. Oranges. Avocados. Prunes and raisins. Dried figs. Meats and Other Protein Sources [place], kidney, [place], and soy beans. Split peas. [...] gabriel has 11 g of protein. ??? [place] seeds ??? 1 oz has 5.5 g [...] floor. ??? Place frequently used items in ewyy-hn-qcowf places ??? Keep electrical cables out of [...] ??? Using the bathroom. ??? Using household php programmer or toxic chemicals. ??? Touching or taking [...] Assistance with quitting is available by contacting 4-470-ZBGW-NOW. This is a free resource providing counseling, [...] Be sure to sign up for the [facility] patient portal, which gives you 02/10 access to your medical information ??? including these discharge instructions ??? using your computer, smartphone, or tablet. Just go to e-Tag to get started. Questions? Call . Test [...] was given the opportunity to ask questions. Patient/Braker Passenger Train Name: Patient/Braker Passenger Train Signature: Relationship to Patient: Clinician/Hospital Braker Passenger Train Signature: Date: documented in this encounter Plan of Treatment Not on file documented as of this encounter Visit Diagnoses Not on filedocumented in this encounter
--- OUTSIDE RECORDS SUMMARY | 2024-09-10 13:01 | XMS_ITS | Encounter Summary ---
Author Organization [employer] ([place], [place], [place], [place]) Address [address] [place] [address] Care Team Providers Care County Nurse Name Role Phone Unavailable Primary Care Provider Grady peres Encounter Details Date Type Department Care Team (Late st Contact Info) Description 07/16/2018 Transcribed Document [facility] Family Medicine [address] [place] [address] ProviderKristel MD [address] [place] [address] Social History Tobacco Use Types [...]
--- OUTSIDE RECORDS SUMMARY | 2024-09-10 13:01 | XMS_ITS | Encounter Summary ---
Author Organization [employer] ([place], [place], [place], [place]) Address [address] [place] [address] Care Team Providers Care District Administrator Name Role Phone Unavailable Primary Care Provider Unavailmorris e Encounter Details Date Type Department Care Team (Late st Contact Info) Description 07/16/2018 Transcribed Document [facility] [place] Family Medicine [address] [place] [address] ProviderKristel MD [address] [place] [address] Social History Tobacco Use Types [...] Historical ProviderMD - 07/16/2018 2:00 AM CDT Harbor Engineer Details Entered On: 07/16/2018 2:49 EDT Performed [...]
--- OUTSIDE RECORDS SUMMARY | 2024-09-10 13:01 | XMS_ITS | Encounter Summary ---
Author Organization [employer] ([place], [place], [place], [place]) Address [address] [place] [address] Care Team Providers Care Tubing Tester Name Role Phone Unavailable Primary Care Provider Unavailabl e Encounter Details Date Type Department Care Team (Late st Contact Info) Description 07/16/2018 Transcribed Document [facility] Family Medicine [address] [place] [address] ProviderKristel MD [address] [place] [address] Social History Tobacco Use Types [...] 05:00) 16 (JULY 15 09:21) 16 (JULY 15:21) SBP 117 (JULY 16:27) 107 (JULY 15:25) [...]
--- OUTSIDE RECORDS SUMMARY | 2024-09-10 13:01 | XMS_ITS | Encounter Summary ---
Author Organization Healthcare Address [address] [place] [address] Care Team Providers Care Folder Gluer Operator Name Role Phone Unavailable Primary Care Provider Unavailabl e Encounter Details Date Type Department Care Team ([facility] Contact Info) Description 08/22/2024 Orders Only External Location [address] [place] [address] Provider, External Social History Tobacco Use Types [...] [place] [facility] [address] [facility] 5th Floor [address], [address] [place] [address] Bjorn Galarza MD [address] [facility] [address] [place] [address] 10/20/2024 11:00 AM EDT Office Visit [facility] [employer] [facility] [place] [facility] [address] [facility], [address] [place] [address] Sergei Gan MD [address] [place] [address] documented as of this encounter Procedures Procedure [...]
--- OUTSIDE RECORDS SUMMARY | 2024-09-10 13:01 | XMS_ITS | Clinical Summary ---
Author Organization [facility] Address [address] [place] [address] Care Team Providers Care Flight Nurse Name Role Phone Nae Cortés APRN Primary Care Provider [phone] Encounters Date Type Department Care Team Description 09/05/2024 Orders Only [facility] [address] [place] [address] Hedy Wright Stage 3 chronic kidney disease, unspecified whether stage 3a or 3b CKD (CMS/HCC) (Primary Dx); Vitamin D insufficiency 08/28/2024 Orders Only [facility] [place] [address] [facility] [place] [address] Maya Krueger, RN Infrarenal abdominal aortic aneurysm (AAA) without rupture (CMS/HCC) (Primary Dx) 08/27/2024 [facility] [address] [place] [address] Nae Cortés APRN Elevated BUN (Primary Dx); Elevated creatine kinase 08/22/2024 Orders Only External Location [address] [place] [address] Provider, External from Last 3 Months Social [...] [place] [facility] [address], [address] [place] [address] Bjorn Galarza MD [address] [place] [address] 10/20/2024 11:00 AM EDT Office Visit [facility] Nephrology, Bone & Mineral Metabolism [address] [facility], [address] [place] [address] Sergei Gan MD [address] [place] [address] Health Maintenance Due Date Last Done Comments [facility]-Bone Density Scan 1945 [facility]-Depression Screening 1945 [facility]-Hepatitis C Screening 1945 [facility]-Medicare Annual Wellness (AWV) 1945 [facility]-Infant/Child/Adol SDOH Screenings 1945 [facility]- SDOH Screenings 1964 [facility]-Adult SDOH Screenings 1964 [facility]-Zoster Vaccines (1 of 2) 1996 [facility]-RSV Vaccine: 60+ Years or (1 - 1-dose 75+ series) 2021 [id number]-BPZRW-42 Vaccine ( - season) 2023 05/19/2020, 04/21/2020 [facility]-Influenza Vaccine [...] Final Result from Last [address] [place] [address] [facility] MEDICARE Care Teams Flight Nurse Relationship Specialty Start Date End Date Nae Cortés APRN [address] [facility] [address] [place] [address] PCP - General 09/05/24
--- OUTSIDE RECORDS SUMMARY | 2024-09-10 13:01 | XMS_ITS | Encounter Summary ---
Author Organization [employer] ([place], [place], [place], [place]) Address [address] [place] [address] Care Team Providers Care Engineer Technician Name Role Phone Unavailable Primary Care Provider Unavailabl e Encounter Details Date Type Department Care Team (Late st Contact Info) Description 06/28/2018 Transcribed Document [facility] [place] Medicine [place] [address] ProviderKristel MD [address] [place] [address] Social History Tobacco Use Types [...] Source : Stated Height Entry Format : [facility] Height, Feet : 5 ft(Converted to: 152 cm, 60 Inch) Height, Inches : 1 Inch(Converted to: 0 ft 1 Inch, 2.54 cm) Clinical Height : 154.94 cm Weight Source : Standing scale Weight Entry Format : [facility] Clinical Dosing Weight : 65 kg Weight, Pounds : 143 lb Body Surface Area (BSA) : 1.64 m2 Body Mass Index : 27.1 kg/m2 ([place]) Bowers Body Weight : 47 kg CLARISSA GUERRERO [...] 06/28/2018 10:15:29 EDT by CLARISSA GUERRERO RN) Infectious Disease History Infectious Disease History [...] #2 Relationship : daughter Primary Language : Guamanian Communication Barrier : None CLARISSA GUERRERO RN [...]
--- OUTSIDE RECORDS SUMMARY | 2024-09-10 13:01 | XMS_ITS | Encounter Summary ---
Author Organization [facility] Address [address] [place] [address] Care Team Providers Care Paper Machine Operator Name Role Phone Unavailable Primary Care Provider Unavailabl e Reason for Referral * Consultation (Routine) - Authorized Specialty Diagnoses / Procedures Referred By Contact Referred To Contact Vascular Surgery / [facility] Diagnoses Infrarenal abdominal aortic aneurysm (AAA) without rupture (CMS/HCC) Roselia Washington APRN [address] [facility] [address] [place] [address] Phone: tel: fax: [facility] [address] [facility] 5th Floor [address], [address] [place] [address] Phone: tel: fax: Referral ID Status Reason Start Date Expiration Date Visits Requested Visits Authorized [id number] Authorized Specialty Services Required 08/28/2024 02/27/2026 1 1 Scheduling Instructions Requesting VALENTIN appt for infrarenal AAA 4.9 x 4.6. Requested powershare of images. Encounter Details Date Type Department Care Team (Late st Contact Info) Description 08/28/2024 Orders Only [facility] [place] [address] [place] [address] Maya Krueger, RN HOSP. SPECIAL DIAGNOSTIC FACILITIES [...] Miscellaneous Notes * Progress Notes - Maya Kureger, RN - 08/28/2024 4:18 PM EDT Requesting VALENTIN appt for infrarenal AAA 4.9 x 4.6. Requested powershare of images. documented in this encounter Plan of Treatment Upcoming Encounters Date Type Department Care Team (Late st Contact Info) Description 10/17/2024 11:20 AM EDT Office Visit [facility] [address] [facility] 5th Floor [address], [address] [place] [address] Bjorn Galarza MD [address] [facility] [address] [place] [address] 10/20/2024 11:00 AM EDT Office Visit [facility] Nephrology, Bone & Mineral Metabolism [address] [facility], [address] [place] [address] Sergei Gan MD [address] [place] [address] Scheduled Referrals Name Type Priority Associated Diagnoses Order Schedule Ambulatory referral to Vascular Surgery Outpatient Referral Routine Infrarenal abdominal aortic aneurysm (AAA) without rupture (CMS/HCC) Expected: 08/28/2024, Expires: 03/01/2026 documented as of this encounter Visit Diagnoses Diagnosis Infrarenal abdominal aortic aneurysm (AAA) without rupture (CMS/HCC)- Primary documented in this encounter
--- OUTSIDE RECORDS SUMMARY | 2024-09-10 13:01 | XMS_ITS | Encounter Summary ---
Author Organization [employer] ([place], [place], [place], [place]) Address [address] [place] [address] Care Team Providers Care Membership Sales Representative Name Role Phone Unavailable Primary Care Provider Unavailabl e Encounter Details Date Type Department Care Team (Late st Contact Info) Description 07/16/2018 Transcribed Document [facility] [place] Medicine [address] [place] [address] ProviderKristel MD [address] [place] [address] Social History Tobacco Use Types [...] Kristel ProviderMD - 07/16/2018 12:09 [place] [address] CINDY LABOY :1945 Visit Time:07/15/2018 Your Visit Summary Your Care Team Admitting Physician - RONAL ROBERT MD Attending Physician - DEREK DURAN MD-MENDYT Primary Care Physician - RANDAL ALBARADO (REF)MD-[facility] Referring Physician - DEREK DURAN MD-ORT Your Diagnosis S/P total hip arthroplasty Unilateral primary osteoarthritis, right hip, Unilateral primary osteoarthritis, right hip These Are Your Goals I want to mow the yard. Interventions: Work with PT Discharge Vitals Heart Rate 72 Blood Pressure 105/62 What to do next Instructions From Your Care Team [facility], PT WILL NEED TO INFORM HOME HEALTH DIRECTLY OF WHEN SHE WILL CHANGE 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 TO HER OWN HOME [phone] PT HAS ALL NEEDED DME Follow-Up Appointments Follow Up with JAIDEN LEBRON PA-C When 08/26/2018 10:00 AM EDT Comments Appointment has been made Where: [address] [facility] [address] [place] [address]- Follow Up with Follow up with primary [...] Barley. Bulgur wheat. Millet. Bran muffins. Popcorn. Homeland wafer crackers. Vegetables Sweet potatoes. Spinach. Kale. Artichokes. Cabbage. Broccoli. Green peas. Carrots. Squash. Fruits Berries. Pears. Apples. Oranges. Avocados. Prunes and raisins. Dried figs. Meats and Other Protein Sources [place], kidney, christianson, and soy beans. Split peas. [...] gabriel has 11 g of protein. ??? Warwick seeds ??? 1 oz has 5.5 g [...] floor. ??? Place frequently used items in yzma-qi-rgvvi places ??? Keep electrical cables out of [...] ??? Using the bathroom. ??? Using household manager discovery or toxic chemicals. ??? Touching or taking [...] Assistance with quitting is available by contacting 1-225-NGCZ-NOW. This is a free resource providing counseling, [...] computer, smartphone, or tablet. Just go to [employer] to get started. Questions? Call . Test [...] between ( 7 and 22 ) Patient Name:ICNDY LABOY I have received and understand this information and was given the opportunity to ask questions. Patient/Neuropsychiatric Aide Name: Patient/Neuropsychiatric Aide Signature: Relationship to Patient: Clinician/Hospital Neuropsychiatric Aide Signature: Date: documented in this encounter Plan of Treatment Not on file documented as of this encounter Visit Diagnoses Not on filedocumented in this encounter
--- OUTSIDE RECORDS SUMMARY | 2024-09-10 13:01 | XMS_ITS | Encounter Summary ---
Author Organization [employer] ([place], [place], [place], [place]) Address [address] [place] [address] Care Team Providers Care Car Inspection And Repair Manager Name Role Phone Unavailable Primary Care Provider Unavailabl e Encounter Details Date Type Department Care Team (Late st Contact Info) Description 07/16/2018 Transcribed Document [facility] [address] [place] [address] Raj Ching MD [address] [place] [address] Social History Tobacco Use Types Packs/Day [...] Signature: __Cadence perez RN DS Phone #: __[phone] This is a permanent part of the Medical Record documented in this encounter Plan of Treatment Not on file documented as of this encounter Visit Diagnoses Not on filedocumented in this encounter
--- OUTSIDE RECORDS SUMMARY | 2024-09-10 13:01 | XMS_ITS | Encounter Summary ---
Author Organization [employer] ([place], [place], [place], [place]) Address [address] [place] [address] Care Team Providers Care Numerical Control Lathe Operator Name Role Phone Unavailable Primary Care Provider Unavailabl e Encounter Details Date Type Department Care Team (Late st Contact Info) Description 06/28/2018 Transcribed Document [facility] [place] Family Medicine [facility] [place] [address] ProviderKristel MD [facility] [place] [address] Social History Tobacco Use Types [...] Hip Pain Primary Care Provider RANDAL ALBARADO (REF)MD-[facility] History of Present Illness This patient [...]
--- OUTSIDE RECORDS SUMMARY | 2024-09-10 13:01 | XMS_ITS | Encounter Summary ---
Author Organization [employer] ([place], [place], [place], [place]) Address [address] [place] [address] Care Team Providers Care Unit Aide Tech Name Role Phone Unavailable Primary Care Provider Unavailabl e Encounter Details Date Type Department Care Team (Late st Contact Info) Description 07/16/2018 Transcribed Document [facility] [place] Family Medicine [address] [place] [address] ProviderKristel MD [address] [place] [address] Social History Tobacco Use Types [...] 07/16/2018 9:53 EDT by NAYA MINOR, Care Management-Flask Carrier Initial Assessment I Previously Documented Living Environment : No qualifying data available. Living Situation : Home Patient Lives With : Alone Emergency Contact #1 : Sera Emergency Contact #1 Emergency Contact #1 Relationship : daughter Emergency Contact #2 : Nae Emergency Contact #2 Emergency Contact #2 Relationship : daughter NAYA MINOR, Care Management-Flask Carrier - 07/16/2018 9:53 EDT Initial Assessment II Sensory and Motor Deficits : Other: AYESHA Current Home Treatments and Equipment : Bedside commode, Shower chair, Walker NAYA MINOR, Care Management-Flask Carrier - 07/16/2018 9:53 EDT Discharge Needs I Anticipated Discharge Date : 07/16/2018 EDT Anticipated Discharge To, CM : Home with home health Current Home Treatment/Equipment : Current Home Treatment/Equipment No qualifying data available. NAYA MINOR, Care Management-Flask Carrier - 07/16/2018 9:53 EDT Discharge Needs II Professional Skilled Services : Professional Skilled Services No qualifying data available. Services and Community Resources : Home Health Needs Assistance with Transportation : No Discharge Options Discussed with Patient : [facility], Home Health NAYA MINOR Care Management-Flask Carrier - 07/16/2018 9:53 EDT documented in this encounter Plan of Treatment Not on file documented as of this encounter Visit Diagnoses Not on filedocumented in this encounter
--- OUTSIDE RECORDS SUMMARY | 2024-09-10 13:01 | XMS_ITS | Encounter Summary ---
Author Organization [employer] ([place], [place], [place], [place]) Address [address] [place] [address] Care Team Providers Care Limousine Driver Name Role Phone Unavailable Primary Care Provider Unavailabl e Encounter Details Date Type Department Care Team (Late st Contact Info) Description 07/16/2018 Transcribed Document [facility] [place] [address] [place] [address] ProviderKristel MD [address] [place] [address] Social History Tobacco Use Types [...] Barley. Bulgur wheat. Millet. Bran muffins. Popcorn. Peak wafer crackers. Vegetables Sweet potatoes. Spinach. Kale. Artichokes. Cabbage. Broccoli. Green peas. Carrots. Squash. Fruits Berries. Pears. Apples. Oranges. Avocados. Prunes and raisins. Dried figs. Meats and Other Protein Sources [place], kidney, christianson, and soy beans. Split peas. [...] gabriel has 11 g of protein. ?? [place]reid seeds ??? 1 oz has 5.5 g [...] floor. ?? Place frequently used items in tddz-wb-xcpsa places ?? Keep electrical cables out of [...] ?? Using the bathroom. ?? Using household clip riveter or toxic chemicals. ?? Touching or taking [...]
--- OUTSIDE RECORDS SUMMARY | 2024-09-10 13:01 | XMS_ITS | Encounter Summary ---
Author Organization [employer] ([place], [place], [place], [place]) Address [address] [place] [address] Care Team Providers Care Valet Name Role Phone Unavailable Primary Care Provider Unavailabl e Encounter Details Date Type Department Care Team (Late st Contact Info) Description 07/16/2018 Transcribed Document [facility] [place] Family Medicine [address] [place] [address] ProviderKristel MD [address] [place] [address] Social History Tobacco Use Types [...] 07/16/2018 9:54 EDT by NAYA MINOR Care Management-Renewals Specialist Care Management Progress Note Discharge Arrangements : [...] Sent to Post Acute Providers : Yes MILY, NAYA, Care Management-Renewals Specialist - 07/16/2018 9:54 EDT Electronically signed by Rosario, [facility] Conversion Laboratory Technology Teacher Cerner at 06/29/2022 1:33 PM CDT documented in this encounter Plan of Treatment Not on file documented as of this encounter Visit Diagnoses Not on filedocumented in this encounter
--- OUTSIDE RECORDS SUMMARY | 2024-09-10 13:01 | XMS_ITS | Encounter Summary ---
Author Organization [facility] Address [address] [place] [address] Care Team Providers Care Cook Helper Meat Name Role Phone Nae Cortés APRN Primary Care Provider +1- [phone] Reason for Referral * Consultation (Routine) - Authorized Specialty Diagnoses / Procedures Referred By Radha santacruz Referred To Contact Nephrology Diagnoses Elevated BUN Elevated creatine kinase Nae Cortés APRN [address] [address] Phone: tel: fax: [facility] [address] [facility] [address], [place] [address] Phone: tel: fax: Referral ID Status Reason Start Date Expiration Date Visits Requested Visits Authorized [id number] Authorized Specialty Services Required 08/27/2024 02/26/2026 1 1 Encounter Details Date Type Department Care Team (Late st Contact Info) Description 08/27/2024 Community Orders [facility] [address] [place] [address] Nae Cortés APRN [address] [address] Elevated BUN (Primary Dx); Elevated [...] Description 10/17/2024 11:20 AM EDT [facility] [address] [facility] 5[address] [place] [address] Bjorn Galarza MD [address] [facility] [address] [place] [address] 10/20/2024 11:00 AM EDT Office Visit [facility] [place] [facility]phrology, Bone & Mineral Metabolism [address] [address], [address] [place] [address] Sergei Gan MD [address] [place] [address] Scheduled Referrals Name Type Priority Associated Diagnoses Order Schedule Ambulatory referral to Nephrology Outpatient Referral Routine Elevated BUN Elevated creatine kinase Expected: 08/27/2024 (Approximate), Expires: 02/28/2026 documented as of this encounter Visit Diagnoses Diagnosis Elevated BUN- Primary Other abnormal blood chemistry Elevated creatine kinase Other nonspecific abnormal serum enzyme levels documented in this encounter Care Teams Cook Helper Meat Relationship Specialty Start Date End Date Nae Cortés APRN [address] [address] PCP - General 09/05/24 documented as of this encounter
--- OUTSIDE RECORDS SUMMARY | 2024-09-10 13:01 | XMS_ITS | Encounter Summary ---
Author Organization [employer] ([place], [place], [place], [place]) Address [address] [place] [address] Care Team Providers Care Theatrical Trouper Name Role Phone Unavailable Primary Care Provider Unavailabl e Encounter Details Date Type Department Care Team (Late st Contact Info) Description 07/16/2018 Transcribed Document [facility] [place] Family Medicine [address] [place] [address] ProviderKristel MD [address] [place] [address] Social History Tobacco Use Types [...] Conversion Note - Kristel ProviderMD - 07/16/2018 11:00 AM CDT Pain [...] form. Electronically signed by Tatiana Ponce Conversion Substation Electrician Supervisor Cerremy at 06/29/2022 1:43 PM CDT documented in this encounter Plan of Treatment Not on file documented as of this encounter Visit Diagnoses Not on filedocumented in this encounter
--- OUTSIDE RECORDS SUMMARY | 2024-09-10 13:01 | XMS_ITS | Encounter Summary ---
Author Organization [facility] Address [address] [place] [address] Care Team Providers Care Engineering Job Titles Name Role Phone Nae Cortés HEEL FINISHER Primary Care Provider +1- [phone] Encounter Details Date Type Department Care Team (Late Contact Info) Description 12/06/2023 Orders Only External Location [address] [place] [address] Provider, External Social History Tobacco Use Types [...] Description 10/17/2024 11:20 AM EDT Office Visit [facility] [address] [facility] 5th Floor [address], [address] [place] [address] Bjorn Galarza MD [address] [facility] [address] [place] [address] 10/20/2024 11:00 AM EDT Office Visit [facility] Nephrology, Bone & Mineral Metabolism [address] [facility], [address] [place] [address] Sergei Gan MD [address] [place] [address] documented as of this encounter [...] Diagnoses Not on filedocumented in this encounter Care Teams Engineering Job Titles Relationship Specialty Start Date End Date Nae Cortés APRN [address] [place] [address] PCP - General 09/05/24 documented as of this encounter
[2024-09-10] MEDS: 0.9 % SODIUM CHLORIDE 50 ML VIAL 100 ML IV (13:21)
[2024-09-10] MEDS: SODIUM CHLORIDE 0.9% 10ML SYR (RAD ONLY) 10 ML IV (13:21)
[2024-09-10] MEDS: IOPAMIDOL-370 (76%);100ML BOTTLE 120 ML IV (13:21)
== END 2024-09-10 23:59 | disposition home or self-care (01) ==
LOC: RAD 12:56
PROVIDERS: PCP Nurse Practitioner Family; Visit Provider Nurse Practitioner
DX: I71.43 Infrarenal abdominal aortic aneurysm, without rupture (principal); I74.5 Embolism and thrombosis of iliac artery; I70.203 Unspecified atherosclerosis of native arteries of extremities, bilateral legs
CPT/HCPCS: 75635; Q9967

== ENCOUNTER 2024-10-14 12:08 | Outpatient (CLI) | payer MEDICARE, MEDICAID, SELFPAY ==
--- OUTSIDE RECORDS SUMMARY | 2024-10-14 12:12 | XMS_ITS | Encounter Summary ---
Author Organization [employer] ([place], [place], [place], [place]) Address [address] [place] [address] Care Team Providers Care Ranch Supervisor Name Role Phone Unavailable Primary Care Provider Unavailabl e Encounter Details Date Type Department Care Team (Late st Contact Info) Description 07/15/2018 Transcribed Document [facility] [place] [address] [place] [address] ProviderKristel MD [address] [place] [address] Social History Tobacco Use Types [...] LABOY /Sex: 1945 Female Med Rec #: [id number] Physician: DEREK DURAN MD-ORT Financial #: [id number] Pt. Type: I Room/Bed: 513/1 Admit/Disch: 07/15/18 04:51:00 - [place] [facility] [place] PreOp Case Times Entry 1 In Preop 07/15/18 05:40:00 Ready for Holding n/a Room Patient Ready for 07/15/18 07:12:00 Surgery Patient Out of Preop 07/15/18 07:25:00 Patient Out of n/a Holding Room Last Modified By: CHADWICK CHAN 07/15/18 12:29:59 [facility] PreOp Case Times Audit 07/15/18 12:29:59 Pump Installer: MAY Modifier: CATLETDD <+> 1 Patient Out of Preop Finalized By: CHADWICK CHAN Document Signatures Signed By: CHADWICK CHAN 07/15/18 12:30 documented in this encounter Plan of Treatment Not on file documented as of this encounter Visit Diagnoses Not on filedocumented in this encounter
--- OUTSIDE RECORDS SUMMARY | 2024-10-14 12:12 | XMS_ITS | Encounter Summary ---
Author Organization [employer] ([place], [place], [place], [place]) Address [address] [place] [address] Care Team Providers Care Content Engineer Name Role Phone Unavailable Primary Care Provider Unavailabl e Encounter Details Date Type Department Care Team (Late st Contact Info) Description 07/16/2018 Transcribed Document [facility] [address] [place] [address] Raj Ching MD [address] [place] [address] Social History Tobacco Use Types Packs/Day [...] Signature: __Cadence perez RN DS Phone #: __[phone] This is a permanent part of the Medical Record documented in this encounter Plan of Treatment Not on file documented as of this encounter Visit Diagnoses Not on filedocumented in this encounter
--- OUTSIDE RECORDS SUMMARY | 2024-10-14 12:12 | XMS_ITS | Encounter Summary ---
Author Organization [employer] ([place], [place], [place], [place]) Address [address] [place] [address] Care Team Providers Care Club Concierge Name Role Phone Unavailable Primary Care Provider Unavailabl e Encounter Details Date Type Department Care Team (Late st Contact Info) Description 07/15/2018 Transcribed Document [facility] [place] Family Medicine [address] [place] [address] ProviderKristel MD [address] [place] [address] Social History Tobacco Use Types [...] home DANA PALMA OTR/L 07/16/2018 10:58 EDT Heater Worker Goals, OT Other LTG Grid Goal #1 [...] DANA PALMA OTR/Mari - 07/16/2018 10:58 EDT Electronically signed by Tatiana Ponce Conversion Director Employee Safety And Health Cerner at 06/29/2022 1:25 PM CDT documented in this encounter Plan of Treatment Not on file documented as of this encounter Visit Diagnoses Not on filedocumented in this encounter
--- OUTSIDE RECORDS SUMMARY | 2024-10-14 12:12 | XMS_ITS | Encounter Summary ---
Author Organization [employer] ([place], [place], [place], [place]) Address [address] [place] [address] Care Team Providers Care Public Health Officer Name Role Phone Unavailable Primary Care Provider Unavailabl e Encounter Details Date Type Department Care Team (Late st Contact Info) Description 06/28/2018 Transcribed Document [facility] [place] Family Medicine [facility] [place] [address] ProviderKristel MD [address] [place] [address] Social History Tobacco Use Types [...] Source : Stated Height Entry Format : [place] Height, Feet : 5 ft(Converted to: 152 cm, 60 Inch) Height, Inches : 1 Inch(Converted to: 0 ft 1 Inch, 2.54 cm) Clinical Height : 154.94 cm Weight Source : Standing scale Weight Entry Format : [place] Clinical Dosing Weight : 65 kg Weight, Pounds : 143 lb Body Surface Area (BSA) : 1.64 m2 Body Mass Index : 27.1 kg/m2 (HI) [place] Body Weight : 47 kg CLARISSA GUERRERO [...] #2 Relationship : daughter Primary Language : Danish Communication Barrier : None CLARISSA GUERRERO RN [...]
--- OUTSIDE RECORDS SUMMARY | 2024-10-14 12:12 | XMS_ITS | Encounter Summary ---
Author Organization [employer] ([place], [place], [place], [place]) Address [address] [place] [address] Care Team Providers Care Sliding Joint Maker Name Role Phone Unavailable Primary Care Provider Unavailabl e Encounter Details Date Type Department Care Team (Late st Contact Info) Description 07/15/2018 Transcribed Document [facility] Family Medicine [address] [place] [address] ProviderKristel MD [address] [place] [address] Social History Tobacco Use Types [...] : Right Right UE Active ROM : [facility] Right UE Strength : [facility] Left UE Active ROM : [facility] Left UE Strength : [facility] VERO TAMEZ, PT - 07/15/2018 12:39 EDT [...] Stand to Sit : Rehab Minimal assistance VREO TAMEZ, PT - 07/15/2018 12:39 EDT Gait [...] VERO TAMEZ, PT - 07/15/2018 12:39 EDT Intermediate Goals Other PT LTG Grid Goal #1 [...] TAMEZ, PT - 07/15/2018 12:39 EDT VERO TAEMZ, PT - 07/15/2018 12:39 EDT Treatment Note [...] VERO TAMEZ, PT - 07/15/2018 12:39 EDT Electronically signed by Tatiana Ponce Conversion Financial Assistance Specialist Cerner at 06/29/2022 1:34 PM CDT documented in this encounter Plan of Treatment Not on file documented as of this encounter Visit Diagnoses Not on filedocumented in this encounter
--- OUTSIDE RECORDS SUMMARY | 2024-10-14 12:12 | XMS_ITS | Encounter Summary ---
Author Organization [facility] Address [address] [place] [address] Care Team Providers Care Glass Calibrator Name Role Phone Nae Cortés TRAM Primary Care Provider +1- [phone] Encounter Details Date Type Department Care Team (Late st Contact Info) Description 09/11/2024 Telephone [facility] Met[facility] [address] [facility], [address] [place] [address] Sergei Gan MD [address] [place] [address] Social History Tobacco Use Types Packs/Day Years Used Date Smoking Tobacco: Never Assessed Comments Unknown Sex and Gender Information Value Date Recorded Sex Assigned at Not on file Legal Sex Female 6:12 PM EDT Gender Identity Not on file Sexual Orientation Not on file documented as of this encounter Miscellaneous Notes * Telephone Encounter - Tavia Ravi - 09/11/2024 10:52 AM EDT Sent secure chat to Osmany Martines MA * Telephone Encounter - Seda Burch - 09/11/2024 10:33 AM EDT Clinical Concern/Question Reason for Call: Patient's daughter asking, if possible, to send lab order to [facility] Best contact number: Other: [phone] Optimal time of day to reach caller: ANYTIME Additional comments/information from caller: They received the hard copy but just in case they loseit Note: Please do not reply to this message. Follow-up communication and further actions as a result of this message need to be communicated with the patient directly, if the patient is not active onMyChart. If the patient is active on MyChart, they will receive notification of the communication/outcome via MyChart. documented in this encounter Plan of Treatment Upcoming Encounters Date Type Department Care Team (Late st Contact Info) Description 10/17/2024 11:20 AM EDT Office Visit [facility] [address] [place] [address] Bjorn Galarza MD [address] [facility] [address] [place] [address] 10/20/2024 11:00 AM EDT Office Visit [facility] Nephrology, Bone & Mineral Metabolism [address], [address] [place] [address] Sergei Gan MD [address] [place] [address] documented as of this encounter Visit Diagnoses Not on filedocumented in this encounter Care Teams Glass Calibrator Relationship Specialty Start Date End Date Nae Cortés APRN [address] [place] [id number] PCP - General 09/05/24 documented as of this encounter
--- OUTSIDE RECORDS SUMMARY | 2024-10-14 12:12 | XMS_ITS | Encounter Summary ---
Author Organization [facility] Address [address] [place] [address] Care Team Providers Care Compound Filler Name Role Phone Nae Cortés TRAM Primary Care Provider +1- [phone] Reason for Visit * Reason Onset Date Comments HCN Clinical Concern/Question 10/13/2024 Encounter Details Date Type Department Care Team (Late st Contact Info) Description 10/13/2024 Telephone [facility] [address] [facility] 5th [address] [place] [address] Bjorn Galarza MD [address] [facility] [address] [place] [address] HCN Clinical Concern/Question Social History Tobacco Use Types Packs/Day Years Used Date Smoking Tobacco: Never Assessed Comments Unknown Sex and Gender Information Value Date Recorded Sex Assigned at Not on file Legal Sex Female 6:12 PM EDT Gender Identity Not on file Sexual Orientation Not on file documented as of this encounter Miscellaneous Notes * Telephone Encounter - Elian Stoll - 10/13/2024 9:34 AM EDT Clinical Concern/Question Reason for Call: Chandana Arriaza calling back to speak to Nita about patient. Needing some clarification on what's needed. Please call Chandni to discuss. Thank you Best contact number: Other: [phone] Optimal time of day to reach caller: ANYTIME Additional comments/information from caller: None Note: Please do not reply to this [...] Description 10/17/2024 11:20 AM EDT Office Visit [facility] [address] [facility] 5th Floor [address] [place] [address] Bjorn Galarza MD [address] [facility] [address] [place] [address] 10/20/2024 11:00 AM EDT Office Visit [facility] Nephrology, Bone & Mineral Metabolism [address] [facility], [address] [place] [address] Sergei Gan MD [address] [place] [address] documented as of this encounter Visit Diagnoses Not on filedocumented in this encounter Care Teams Compound Filler Relationship Specialty Start Date End Date Nae Cortés APRN [address] [place] [id number] PCP - General 09/05/24 documented as of this encounter
--- OUTSIDE RECORDS SUMMARY | 2024-10-14 12:12 | XMS_ITS | Encounter Summary ---
Author Organization [employer] ([place], [place], [place], [place]) Address [address] [place] [address] Care Team Providers Care Promotions Assistant Sales Marketing Name Role Phone Unavailable Primary Care Provider Unavailabl e Encounter Details Date Type Department Care Team (Late st Contact Info) Description 07/16/2018 Transcribed Document [facility] Radiology [address] [place] [address] Ronal Robert MD [address] [place] [address] Social History Tobacco Use Types Packs/Day [...] tab QHS Primary Care Provider RANDAL ALBARADO (REF)[facility] Time spent 35 minutes documented in this encounter Plan of Treatment Not on file documented as of this encounter Visit Diagnoses Not on filedocumented in this encounter
--- OUTSIDE RECORDS SUMMARY | 2024-10-14 12:12 | XMS_ITS | Encounter Summary ---
Author Organization [employer] ([place], [place], [place], [place]) Address [address] [place] [address] Care Team Providers Care Paste Plant Supervisor Name Role Phone Unavailable Primary Care Provider Unavailabl e Encounter Details Date Type Department Care Team (Late st Contact Info) Description 07/16/2018 Transcribed Document [facility] [place] Family Medicine [address] [place] [address] ProviderKristel MD [address] [place] [address] Social History Tobacco Use Types [...] Kristel ProviderMD - 07/16/2018 12:02 [place] [address] CINDY LABOY :1945 Visit Time:07/15/2018 Your Visit Summary Your Care Team Admitting Physician - RONAL ROBERT MD Attending Physician - DEREK DURAN MD-MENDYT Primary Care Physician - RANDAL ALBARADO (REF)[facility] Referring Physician - DEREK DURAN [...] 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 TO HER OWN HOME [phone] PT HAS ALL NEEDED DME Follow-Up Appointments Follow Up with JAIDEN LEBRON PA-C When 08/26/2018 10:00 AM EDT Comments Appointment has been made Where: [address] [facility] [address] [place] [address]- Follow Up with Follow up with primary [...] Barley. Bulgur wheat. Millet. Bran muffins. Popcorn. [place] wafer crackers. Vegetables Sweet potatoes. Spinach. Kale. Artichokes. Cabbage. Broccoli. Green peas. Carrots. Squash. Fruits Berries. Pears. Apples. Oranges. Avocados. Prunes and raisins. Dried figs. Meats and Other Protein Sources Harvel, kidney, christianson, and soy beans. Split peas. [...] gabriel has 11 g of protein. ??? Beaver seeds ??? 1 oz has 5.5 g [...] floor. ??? Place frequently used items in flrp-yz-birsc places ??? Keep electrical cables out of [...] ??? Using the bathroom. ??? Using household lombardi developer or toxic chemicals. ??? Touching or taking [...] Assistance with quitting is available by contacting 6-609-INLL-NOW. This is a free resource providing counseling, [...] Be sure to sign up for the [facility] patient portal, which gives you 02/10 access to your medical information ??? including these discharge instructions ??? using your computer, smartphone, or tablet. Just go to [employer] to get started. Questions? Call . Test [...] was given the opportunity to ask questions. Patient/Horse And Wagon Driver Name: Patient/Horse And Wagon Driver Signature: Relationship to Patient: Clinician/Hospital Horse And Wagon Driver Signature: Date: documented in this encounter Plan of Treatment Not on file documented as of this encounter Visit Diagnoses Not on filedocumented in this encounter
--- OUTSIDE RECORDS SUMMARY | 2024-10-14 12:12 | XMS_ITS | Encounter Summary ---
Author Organization [employer] ([place], [place], [place], [place]) Address [address] [place] [address] Care Team Providers Care Gas Appliance Servicer Name Role Phone Unavailable Primary Care Provider Unavailabl e Encounter Details Date Type Department Care Team (Late st Contact Info) Description 07/19/2018 Transcribed Document [facility] Family Medicine [address] [place] [address] ProviderKristel MD [address] [place] [address] Social History Tobacco Use Types [...]
--- OUTSIDE RECORDS SUMMARY | 2024-10-14 12:12 | XMS_ITS | Encounter Summary ---
Author Organization [employer] ([place], [place], [place], [place]) Address [address] [place] [address] Care Team Providers Care Teacher Theater Arts Name Role Phone Unavailable Primary Care Provider Unavailabl e Encounter Details Date Type Department Care Team (Late st Contact Info) Description 07/15/2018 Transcribed Document [facility] [place] Family Medicine [address] [place] [address] ProviderKristel MD [address] [place] [address] Social History Tobacco Use Types [...] LABOY /Sex: 1945 Female Med Rec #: [id number] Physician: DEREK DURAN MD-ORT Financial #: [id number] Pt. Type: I Room/Bed: / Admit/Disch: 07/15/18 04:51:00 - [place]: [facility] [place]Op Case Attendance Entry 1 Entry 2 Entry 3 Case Attendee Ney Ann ST Austin, Martha Wells RN Role Performed Scrub, Second Scrub, First Plate Developer, First Time In 07/15/18 07:28:00 07/15/18 07:28:00 [...] Brown, Frankie Brooks, Aysha Guerra MD-ORT Tech [employer] Counter Person Role Performed Surgeon/Proceduralist, Assistive Personnel Celluloid Trimmer First Time In 07/15/18 07:59:00 07/15/18 07:28:00 [...] Case Attendee CLARITZA VEGAS CSA LUNSFORD, JAMES, JOB SERVICE CONSULTANT MAHAMED BE, PAC Role Performed Compress Machine Operator, First JOB SERVICE CONSULTANT/Nurse Sulfonation Equipment Operator Physician physical laboratory assistant Time In 07/15/18 07:28:00 07/15/18 07:28:00 [...] [facility] IntraOp Case Attendance Audit 07/15/18 09:35:34 Marine Plumber: KARLOS Modifier: KARLOS 8 <+> Time Out 8 <*> Procedure Hip Total Anterior Approach 9 <+> Time Out 9 <*> Procedure Hip Total Anterior Approach 10 <+> Time Out 10 <*> Procedure Hip Total Anterior Approach 07/15/18 09:35:33 Marine Plumber: KARLOS Modifier: KARLOS 1 <+> Time Out [...] Procedure Hip Total Anterior Approach 07/15/18 08:26:33 Marine Plumber: KARLOS Modifier: KARLOS 7 <+> Time Out 7 <*> Procedure Hip Total Anterior Approach 9 <*> Time In 07/15/18 07:28:00 9 <*> Procedure Hip Total Anterior Approach 07/15/18 08:01:40 Marine Plumber: KARLOS Modifier: KARLOS 1 <*> Case Attendee DEREK DURAN MD-ORKevin 1 <*> Role Performed Surgeon/Proceduralist, First 1 <*> Time In 07/15/18 07:28:00 1 <*> Procedure Hip Total Anterior Approach 2 <*> Case Attendee Martha Torrez, RN 2 <*> Role Performed Plate Developer, First 2 <*> Time In 07/15/18 07:28:00 [...] Approach 5 <*> Case Attendee Deedee Brown, Pressing Department Supervisor 5 <*> Role Performed Assistive Personnel 5 <*> Time In 07/15/18 07:28:00 5 <*> Procedure Hip Total Anterior Approach 6 <*> Case Attendee CLARITZA VEGAS, CSA 6 <*> Role Performed Compress Machine Operator, First 6 <*> Time In 07/15/18 07:28:00 6 <*> Procedure Hip Total Anterior Approach 7 <*> Case Attendee MAHAMED BE, MIGUELINA 7 <*> Role Performed Physician physical laboratory assistant 7 <*> Time In 07/15/18 07:28:00 7 <*> Procedure Hip Total Anterior Approach 8 <*> Case Attendee OTHER, ATTENDEE 8 <*> Role Performed Vendor 8 <*> Time In 07/15/18 07:28:00 8 <*> Procedure Hip Total Anterior Approach 8 <-> Other Attendee JER DIXON 9 <*> Case Attendee Aysha Brooks, Auto Parts Counter Person 9 <*> Role Performed Celluloid Trimmer 9 <*> Time In 07/15/18 07:28:00 9 <*> Procedure Hip Total Anterior Approach 10 <*> Case Attendee CELSO QUISPE CRNA 10 <*> Role Performed JOB SERVICE CONSULTANT/Nurse Sulfonation Equipment Operator 10 <+> Time In 10 <*> Procedure Hip Total Anterior Approach 10 <+> Other Attendee 07/15/18 07:52:23 Marine Plumber: KARLOS Modifier: KARLOS 1 <+> Time In [...] [facility] IntraOp Case Times Audit 07/15/18 09:35:17 Marine Plumber: KARLOS Modifier: JORDYNBLAND <+> 1 Out Room Time <+> 1 Stop Time 07/15/18 09:08:56 Marine Plumber: KARLOS Modifier: JORDYNBLAND <+> 1 Stop Time 07/15/18 08:01:26 Marine Plumber: MARTHABLAND Modifier: JORDYNBLAND <+> 1 Start Time [...] [facility] IntraOp Counts Verification Audit 07/15/18 08:50:53 Marine Plumber: KARLOS Modifier: SALENAAND <+> 2 Procedure <+> [...] RN 07/15/18 07:07:36 [facility] IntraOp General Case Wrapper Hands Sprayer 1 Case Information OR OR 01 E Case Level 1 Room Verified Yes Wound Class I - Clean Specialty SN Orthopedic Anesthesia Type General ASA Class 4 Diagnosis Preop Diagnosis DJD RIGHT HIP Postop Same As Preop No Postop Diagnosis DICTATED BY MD Last Modified By: Martha Torrez RN 07/15/18 07:53:11 [facility] IntraOp General Case Data Audit 07/15/18 07:53:11 Marine Plumber: KARLOS Modifier: KARLOS <+> 1 ASA Class <+> 1 Preop Diagnosis [facility] IntraOp Implant Log Entry 1 Entry 2 Entry 3 Type Implant (Synthetic) Implant (Synthetic) Implant (Synthetic) Implant Log Implant Type Hardware Hardware Hardware Tissue Implant Type Implant SHELL ACET LOGICAL 48MM LNER LGCL CP 50MM STEM HIP COXA CLLR Identification -[id number] ORIGIN [id number] Description Implant Quantity 1 1 1 Implant Site RIGHT HIP RIGHT HIP RIGHT HIP Implant Identification Model Number Implant Identification Serial Number Implant [id number] Identification Lot Number Implant Paxeon Reconstruction Paxeon Reconstruction Paxeon Reconstruction Identification Foreclosure Paralegal Name: Implant [id number] Identification Catalog Number Implant Size Implant Has an Yes Yes Yes Expiration Date Implant Expiration 06/10/23 02/08/23 04/11/23 Date Wasted Radioactive Material Time Implanted Tissue Implant Continue for Tissue Implant Documentation Tissue Identification Number Graft Prep Per Foreclosure Paralegal Instructions: Tissue Preparation Method: Reconstitution Solution: Reconstitution Solution Lot Number Reconstitution Solution Expiration Date: Thawing Solution Thawing Solution Lot Number Thawing Solution Expiration Date Preparation Materials, Other Preparation Materials, Other Lot Number Preparation Materials, Other Expiration Date Tissue Prepared/Processed By Foreclosure Paralegal Paperwork Completed Implant Type Comment Last Modified By: Martha Torrez RN Bland, Jordyn A, RN Bland, Jordyn A, RN 07/15/18 08:26:09 07/15/18 08:26:09 07/15/18 08:47:20 Entry 4 Type Implant (Synthetic) Implant Log Implant Type Hardware Tissue Implant Type Implant HEAD FEM CERC [id number] 32MM Identification -[id number] Description Implant Quantity 1 Implant Site RIGHT HIP Implant Identification Model Number Implant Identification Serial Number Implant [id number] Identification Lot Number Implant Paxeon Reconstruction Identification Foreclosure Paralegal Name: Implant [id number] Identification Catalog Number Implant Size Implant Has an Yes Expiration Date Implant Expiration 04/11/23 Date Wasted Radioactive Material Time Implanted Tissue Implant Continue for Tissue Implant Documentation Tissue Identification Number Graft Prep Per Foreclosure Paralegal Instructions: Tissue Preparation Method: Reconstitution Solution: Reconstitution Solution Lot Number Reconstitution Solution Expiration Date: Thawing Solution Thawing Solution Lot Number Thawing Solution Expiration Date Preparation Materials, Other Preparation Materials, Other Lot Number Preparation Materials, Other Expiration Date Tissue Prepared/Processed By Foreclosure Paralegal Paperwork Completed Implant Type Comment Last Modified By: Martha Torrez RN 07/15/18 08:47:20 [facility] IntraOp Implant Log Audit 07/15/18 08:47:20 Marine Plumber: KARLOS Modifier: KARLOS <+> 3 Implant Identification Description <+> 3 Implant Identification Lot Number <+> 3 Implant Identification Foreclosure Paralegal Name: <+> 3 Implant Expiration Date <+> 3 Implant Identification Catalog Number <+> 4 Implant Identification Description <+> 4 Implant Identification Lot Number <+> 4 Implant Identification Foreclosure Paralegal Name: <+> 4 Implant Expiration Date <+> 4 Implant Identification Catalog Number 07/15/18 08:26:09 Marine Plumber: KARLOS Modifier: KARLOS <+> 1 Implant Identification Description <+> 1 Implant Identification Lot Number <+> 1 Implant Identification Foreclosure Paralegal Name: <+> 1 Implant Expiration Date <+> 1 Implant Identification Catalog Number <+> 2 Implant Identification Description <+> 2 Implant Identification Lot Number <+> 2 Implant Identification Foreclosure Paralegal Name: <+> 2 Implant Expiration Date <+> 2 Implant Identification Catalog Number 07/15/18 07:54:53 Marine Plumber: KARLOS Modifier: KARLOS <+> 3 Implant Site [...] vancomycin 1Gm vial - ANESTHETIC 1000MG/10 ML [id number] COCKTAIL-ROGER [id number] Combo Med List Time Administered Route of [...] LUNSFORD, JAMES, LUIS, Deedee Brown, Frankie Martell, Mratha Torrez, RN Position Verified Positioning Yes Verified [...] Intra Op Sign Out Audit 07/15/18 09:35:26 Marine Plumber: KARLOS Modifier: KARLOS <+> 1 RN Sign [...] [facility] IntraOp Surgical Procedures Audit 07/15/18 09:08:57 Marine Plumber: KARLOS Modifier: KARLOS <+> 1 Start <+> [...] [facility] IntraOp Time Out Audit 07/15/18 08:01:30 Marine Plumber: KARLOS Modifier: KARLOS 1 <+> Time Out Pause Time 1 <*> Procedure to be Performed Hip Total Anterior Approach 07/15/18 07:56:31 Marine Plumber: KARLOS Modifier: KARLOS 1 <+> Beta Pat Administered 1 <*> Procedure to be Performed Hip Total Anterior Approach [facility] IntraOp X-Ray and Images Entry 1 X-Ray/Imaging Type Fluoroscopy Fluoroscopy Type C-Arm Site RIGHT HIP Security Rep Name Aysha Brooks, Auto Parts Counter Person Protective Devices Yes Used Last Modified By: Martha Torrez RN 07/15/18 07:56:43 Case Comments <None> Finalized By: Martha Torrez, RN Document Signatures Signed By: Martha Torrez RN 07/15/18 09:37 documented in this encounter Plan of Treatment Not on file documented as of this encounter Visit Diagnoses Not on filedocumented in this encounter
--- OUTSIDE RECORDS SUMMARY | 2024-10-14 12:12 | XMS_ITS | Encounter Summary ---
Author Organization [employer] ([place], [place], [place], [place]) Address [address] [place] [address] Care Team Providers Care Telecom Network Manager Name Role Phone Unavailable Primary Care Provider Unavailabl e Encounter Details Date Type Department Care Team (Late st Contact Info) Description 07/16/2018 Transcribed Document [facility] [place] [place] Family Medicine [address] [place] [address] ProviderKristel MD [address] [place] [address] Social History Tobacco Use Types [...] On: 07/16/2018 9:10 EDT by Meche Oshea boom boss Documentation Patient Disposition, General : Discharge Discharge [...] 07/16/2018 9:10 EDT Electronically signed by Rosario [facility] Conversion Malt Liquors Sales Supervisor Cerner at 06/29/2022 1:27 PM CDT documented in this encounter Plan of Treatment Not on file documented as of this encounter Visit Diagnoses Not on filedocumented in this encounter
--- OUTSIDE RECORDS SUMMARY | 2024-10-14 12:12 | XMS_ITS | Encounter Summary ---
Author Organization [employer] ([place], [place], [place], [place]) Address [address] [place] [address] Care Team Providers Care Cooking Instructor Name Role Phone Unavailable Primary Care Provider Unavailmorris e Encounter Details Date Type Department Care Team (Late st Contact Info) Description 07/16/2018 Transcribed Document [facility] [place] Family Medicine [address] [place] [address] ProviderKristel MD [address] [place] [address] Social History Tobacco Use Types [...]
--- OUTSIDE RECORDS SUMMARY | 2024-10-14 12:12 | XMS_ITS | Encounter Summary ---
Author Organization [employer] ([place], [place], [place], [place]) Address [address] [place] [address] Care Team Providers Care Sheeter Waxer Operator Name Role Phone Unavailable Primary Care Provider Unavailabl e Encounter Details Date Type Department Care Team (Late st Contact Info) Description 07/15/2018 Transcribed Document [facility] [place] [address] [place] [address] ProviderKristel MD [address] [place] [address] Social History Tobacco Use Types [...] Kristel ProviderMD - 07/15/2018 8:01 AM CDT [facility] [place] Summary Primary Physician: DEREK DURAN MD-ORKevin Finalized Date/Time: 07/15/18 10:28:25 Pt. Name: EDSON LABOY /Sex: 1945 Female Med Rec #: [id number] Physician: DEREK DURAN MD-ORT Financial #: [id number] Pt. Type: I Room/Bed: 3/ Admit/Disch: 07/15/18 04:51:00 - Institution: [facility] OR PACU Case Times Entry 1 In PACU I 07/15/18 09:21:00 Ready for PACU 07/15/18 09:51:00 Discharge Discharge from PACU 07/15/18 10:10:00 I Last Modified By: Nikki Wang RN 07/15/18 10:27:52 [facility] Main OR PACU Case Times Audit 07/15/18 10:27:52 Nurse Plastics: HELFEP Modifier: HELFEP <+> 1 Ready for PACU Discharge <+> 1 Discharge from PACU I [facility] Main OR PACU Acuity Entry 1 Start Time 07/15/18 09:51:00 Stop Time 07/15/18 10:10:00 Acuity Level [facility] PACU Acuity I Last Modified By: Nikki Wang RN 07/15/18 10:28:21 Finalized By: Nikki Wang RN Document Signatures Signed By: Nikki Wang RN 07/15/18 10:28 Electronically signed by Rosario [facility] Conversion Boiler House Inspector Cerner at 06/29/2022 1:40 PM CDT documented in this encounter Plan of Treatment Not on file documented as of this encounter Visit Diagnoses Not on filedocumented in this encounter
--- OUTSIDE RECORDS SUMMARY | 2024-10-14 12:12 | XMS_ITS | Encounter Summary ---
Author Organization [employer] ([place], [place], [place], [place]) Address [address] [place] [address] Care Team Providers Care Rn Liaison Name Role Phone Unavailable Primary Care Provider Unavailabl e Encounter Details Date Type Department Care Team (Late st Contact Info) Description 07/15/2018 Transcribed Document [facility] [place] Family Medicine [address] [place] [address] ProviderKristel MD [address] [place] [address] Social History Tobacco Use Types [...] Policy Numbers : Insurance 1 Health Plan: [employer] PPO Policy Number: [id number] Authorization Number: [id number] Insurance Primary Name : [employer] Medicare Authorization Status-Primary : Awaiting callback Authorization Number-Primary : [id number] Authorized Service Begin Date-Primary : 07/15/2018 EDT [...]
--- OUTSIDE RECORDS SUMMARY | 2024-10-14 12:12 | XMS_ITS | Encounter Summary ---
Author Organization [employer] ([place], [place], [place], [place]) Address [address] [place] [address] Care Team Providers Care Chemistry Research Assistant Name Role Phone Unavailable Primary Care Provider Unavailabl e Encounter Details Date Type Department Care Team (Late st Contact Info) Description 07/16/2018 Transcribed Document [facility] [place] [address] [place] [address] ProviderKristel MD [address] [place] [address] Social History Tobacco Use Types [...] - 07/16/2018 9:10 EDT Electronically signed by Tatiana Ponce Conversion Certified Pesticide Applicator Cerner at 06/29/2022 1:38 PM CDT documented in this encounter Plan of Treatment Not on file documented as of this encounter Visit Diagnoses Not on filedocumented in this encounter
--- OUTSIDE RECORDS SUMMARY | 2024-10-14 12:12 | XMS_ITS | Encounter Summary ---
Author Organization [employer] ([place], [place], [place], [place]) Address [address] [place] [address] Care Team Providers Care Sugar Coating Hand Name Role Phone Unavailable Primary Care Provider Unavailabl e Encounter Details Date Type Department Care Team (Late st Contact Info) Description 07/15/2018 Transcribed Document [facility] [place] Family Medicine [address] [place] [address] ProviderKristel MD [address] [place] [address] Social History Tobacco Use Types [...] 07/15/2018 6:15 EDT by Earlene Sheriff Patient Outsole Cementer Machine Height and Weight, Clinical Dosing Height Source : Stated Height Entry Format : [place] Height, Feet : 5 ft(Converted to: 152 cm, 60 Inch) Height, Inches : 1 Inch(Converted to: 0 ft 1 Inch, 2.54 cm) Clinical Height : 154.94 cm Weight Source : Standing scale Weight Entry Format : [place] Clinical Dosing Weight : 63.18 kg Weight, Pounds : 139 lb Body Surface Area (BSA) : 1.62 m2 Body Mass Index : 26.3 kg/m2 (HI) [place] Body Weight : 47 kg Earlene Sheriff Patient Outsole Cementer Machine - 07/15/2018 6:15 EDT Electronically signed by Rosario [facility] Conversion Lead Cargoman Cerner at 06/29/2022 1:18 PM CDT documented in this encounter Plan of Treatment Not on file documented as of this encounter Visit Diagnoses Not on filedocumented in this encounter
--- OUTSIDE RECORDS SUMMARY | 2024-10-14 12:12 | XMS_ITS | Encounter Summary ---
Author Organization [employer] ([place], [place], [place], [place]) Address [address] [place] [address] Care Team Providers Care Assembler Dielectric Heater Name Role Phone Unavailable Primary Care Provider Grady peres Encounter Details Date Type Department Care Team (Late st Contact Info) Description 07/15/2018 Transcribed Document [facility] Family Medicine [address] [place] [address] ProviderKristel MD [address] [place] [address] Social History Tobacco Use Types [...]
--- OUTSIDE RECORDS SUMMARY | 2024-10-14 12:12 | XMS_ITS | Encounter Summary ---
Author Organization [facility] Address [address] [place] [address] Care Team Providers Care Truck Driver Supervisor Name Role Phone MilanaNae ramirez Mari UGALDE Primary Care Provider [phone] Encounter Details Date Type Department Care Team (Late st Contact Info) Description 09/11/2024 Telephone [facility] [address] [facility] [address] [place] [address] Bjorn Galarza MD [address] [facility] [address] [place] [address] Social History Tobacco Use Types Packs/Day Years Used Date Smoking Tobacco: Never Assessed Comments Unknown Sex and Gender Information Value Date Recorded Sex Assigned at Not on file Legal Sex Female 6:12 PM EDT Gender Identity Not on file Sexual Orientation Not on file documented as of this encounter Miscellaneous Notes * Telephone Encounter - Nae López Mari - 09/15/2024 10:11 AM EDT Status Update Call #1 1st call regarding the status of the initial request. Best contact number: Other: [phone] Optimal time of day to reach caller: anytime Additional comments/information from caller: Patient's daughter called back to see if we can complete appt after initial visit via . Informed we do in person appointments for DATA NETWORK ARCHITECT's. Thanks! Note: Please do not reply to this message. Follow-up communication and further actions as a result of this message need to be communicated with the patient directly, if the patient is not active onMyChart. If the patient is active on MyChart, they will receive notification of the communication/outcome via MyChart. * Telephone Encounter - Natali Murray - 09/11/2024 3:05 PM EDT Clinical Concern/Question Reason for Call: patient daughter is calling stating that it is difificult for pt to travel to [place]. Asking if appt with dr galarza can be TH? Ct was done yesterday at [facility]. Best contact number: Other: [phone] Optimal time of day to reach caller: [...] Description 10/17/2024 11:20 AM EDT Office Visit [facility] [address] [facility] [address] [place] [address] Bjorn Galarza MD [address] [facility] [address] [place] [address] 10/20/2024 11:00 AM EDT Office Visit [facility] Nephrology, Bone & Mineral Metabolism [address] [facility], [address] [place] [address] Sergei Gan MD [address] [place] [address] documented as of this encounter Visit Diagnoses Not on filedocumented in this encounter Care Teams Truck Driver Supervisor Relationship Specialty Start Date End Date Nae Cortés APRN [address] [place] [address] PCP - General 09/05/24 documented as of this encounter
--- OUTSIDE RECORDS SUMMARY | 2024-10-14 12:12 | XMS_ITS | Encounter Summary ---
Author Organization [employer] ([place], [place], [place], [place]) Address [address] [place] [address] Care Team Providers Care Supervisor Landscape Name Role Phone Unavailable Primary Care Provider Unavailabl e Encounter Details Date Type Department Care Team (Late st Contact Info) Description 07/15/2018 Transcribed Document [facility] [place] [address] [place] [address] ProviderKristel MD [address] [place] [address] Social History Tobacco Use Types [...] Obtained From : Patient Primary Language : Cuban Preferred Communication Mode : Verbal Communication Barrier [...] IV Therapy or IV Access : Yes Sacnhez Gait/Transferring : Impaired Sanchez Mental Status : Oriented to own ability Sanchez Fall Risk Score : 70 SANCHEZ Fall Scale Risk Level : 46 or > High Risk [place] Fall Interventions : Adequate lighting, Bed in [...] : Refuses FDA approved medications Implant/Device Type, Director Pharmacy Services and Model : left hip replacement, poss. [...] Source : Stated Height Entry Format : O[place]ong Height, Feet : 5 ft(Converted to: 152 cm, 60 Inch) Height, Inches : 1 Inch(Converted to: 0 ft 1 Inch, 2.54 cm) Clinical Height : 154.94 cm Weight Source : Standing scale Weight Entry Format : [place]blong Clinical Dosing Weight : 63.18 kg Weight, Pounds : 139 lb Body Surface Area (BSA) : 1.62 m2 Body Mass Index : 26.3 kg/m2 (HI) [place] Body Weight : 47 kg Nilda Claros [...] Region : No Tuberculosis Symptoms : None Nilad Claros Rn - 07/15/2018 16:39 EDT Influenza [...] Nilda Claros Rn - 07/15/2018 16:39 EDT documented in this encounter Plan of Treatment Not on file documented as of this encounter Visit Diagnoses Not on filedocumented in this encounter
--- OUTSIDE RECORDS SUMMARY | 2024-10-14 12:12 | XMS_ITS | Encounter Summary ---
Author Organization [employer] ([place], [place], [place], [place]) Address [address] [place] [address] Care Team Providers Care Coal Tower Operator Name Role Phone Unavailable Primary Care Provider Unavailabl e Encounter Details Date Type Department Care Team (Late st Contact Info) Description 07/16/2018 Transcribed Document [facility] [place] [address] [place] [address] ProviderKristel MD [address] [place] [address] Social History Tobacco Use [...] 07/16/2018 9:54 EDT by NAYA MINOR Care Management-Key Attendant Care Management Progress Note Discharge Arrangements : [...] Acute Providers : Yes MILY, NAYA, Care Management-Key Attendant - 07/16/2018 9:54 EDT Electronically signed by Rosario, [facility] Conversion Baby Formula Worker Cerner at 06/29/2022 1:33 PM CDT documented in this encounter Plan of Treatment Not on file documented as of this encounter Visit Diagnoses Not on filedocumented in this encounter
--- OUTSIDE RECORDS SUMMARY | 2024-10-14 12:12 | XMS_ITS | Encounter Summary ---
Author Organization [facility] [employer] ([place], [place], [place], [place]) Address [address] [place] [address] Care Team Providers Care Feather Curling Machine Operator Name Role Phone Unavailable Primary Care Provider Unavailabl e Encounter Details Date Type Department Care Team (Late st Contact Info) Description 07/15/2018 Transcribed Document [facility] [place] [address] [place] [address] ProviderKristel MD [address] [place] [address] Social History Tobacco Use Types [...] Precautions in Place : Fall prevention measures OCSAR FRANZ OTR/L - 07/15/2018 12:28 EDT General [...] Assist, minimal Toileting Device : Commode, bedside, [id number] commode Toilet Transfer Assist Level : Assist, [...] OSCAR FRANZ OTR/L - 07/15/2018 12:28 EDT Epic Cadence Analyst Goals, OT Other LTG Grid Goal #1 [...] OSCAR FRANZ OTR/L - 07/15/2018 12:28 EDT OSACR FRANZ OTR/L - 07/15/2018 12:28 EDT Treatment [...] - 07/15/2018 12:28 EDT Electronically signed by [facility], [facility] Conversion Software Design Analyst Cerner at 06/29/2022 1:44 PM CDT documented in this encounter Plan of Treatment Not on file documented as of this encounter Visit Diagnoses Not on filedocumented in this encounter
--- OUTSIDE RECORDS SUMMARY | 2024-10-14 12:12 | XMS_ITS | Encounter Summary ---
Author Organization [employer] ([place], [place], [place], [place]) Address [address] [place] [address] Care Team Providers Care Bridge Builder Name Role Phone Unavailable Primary Care Provider Unavailabl e Encounter Details Date Type Department Care Team (Late st Contact Info) Description 07/15/2018 Transcribed Document [facility] [place] [address] [place] [address] ProviderKristel MD [address] [place] [address] Social History Tobacco Use Types [...] Source : Stated Height Entry Format : [place] Height, Feet : 5 ft(Converted to: 152 cm, 60 Inch) Height, Inches : 1 Inch(Converted to: 0 ft 1 Inch, 2.54 cm) Clinical Height : 154.94 cm Weight Source : Standing scale Weight Entry Format : [place] Clinical Dosing Weight : 63.18 kg Weight, Pounds : 139 lb Body Surface Area (BSA) : 1.62 m2 Body Mass Index : 26.3 kg/m2 (HI) [place] Body Weight : 47 kg Nicole Coley Rn - 07/15/2018 6:34 EDT Health Histories Smoking Status : 10 or more cigarettes (1/2 pack or more)/day in last 30 days Smokeless Tobacco Status : Never Desires Tobacco Cessation Medication : No Reason for No Tobacco Cessation Medication : Refuses FDA approved medications Implant/Device Type, Drop Forger Helper and Model : left hip replacement, poss. gallbladder clamps Nicole Cloey Rn - 07/15/2018 6:34 EDT Social History [...] Obtained From : Patient Primary Language : Lithuanian Preferred Communication Mode : Verbal Communication Barrier [...] Scale Risk Level : 25-45 Medium Risk [place] Fall Interventions : Adequate lighting, Bed [...] rendition version of the form. Maggi Coma [place] Best Motor Response : Obey commands [place] Best Verbal Response : Oriented Maggi Eye Opening Response : Spontaneous Maggi Coma Score : 15 Nicole Coley Rn - 07/15/2018 6:34 EDT documented in this encounter Plan of Treatment Not on file documented as of this encounter Visit Diagnoses Not on filedocumented in this encounter
--- OUTSIDE RECORDS SUMMARY | 2024-10-14 12:12 | XMS_ITS | Encounter Summary ---
Author Organization [employer] ([place], [place], [place], [place]) Address [address] [place] [address] Care Team Providers Care Sr. Director Name Role Phone Unavailable Primary Care Provider Unavailabl e Encounter Details Date Type Department Care Team (Late st Contact Info) Description 07/15/2018 Transcribed Document [facility] [place] [address] [place] [address] ProviderKristel MD [address] [place] [address] Social History Tobacco Use Types [...]
--- OUTSIDE RECORDS SUMMARY | 2024-10-14 12:12 | XMS_ITS | Encounter Summary ---
Author Organization [employer] ([place], [place], [place], [place]) Address [address] [place] [address] Care Team Providers Care Ship Boat Or Barge Mate Name Role Phone Unavailable Primary Care Provider Unavailabl e Encounter Details Date Type Department Care Team (Late st Contact Info) Description 07/16/2018 Transcribed Document [facility] [place] [facility] [place] [address] ProviderKristel MD [address] [place] [address] Social History Tobacco Use Types [...]
--- OUTSIDE RECORDS SUMMARY | 2024-10-14 12:12 | XMS_ITS | Encounter Summary ---
Author Organization [employer] ([place], [place], [place], [place]) Address [address] [place] [address] Care Team Providers Care Investment Associate Name Role Phone Unavailable Primary Care Provider Unavailabl e Encounter Details Date Type Department Care Team (Late st Contact Info) Description 07/15/2018 Transcribed Document [facility] [place] [facility] [place] [address] ProviderKristel MD [address] [place] [address] Social History Tobacco Use Types [...] tab daily Gabapentin 300mg 1 tab QHS Electronically signed by Tatiana Ponce Conversion Manufacturing Engineer Automotive Cerner at 06/29/2022 1:44 PM CDT documented in this encounter Plan of Treatment Not on file documented as of this encounter Visit Diagnoses Not on filedocumented in this encounter
--- OUTSIDE RECORDS SUMMARY | 2024-10-14 12:12 | XMS_ITS | Encounter Summary ---
Author Organization [facility] Address [address] [place] [address] Care Team Providers Care Certified Phlebotomy Technician Name Role Phone Nae Cortés CHIP MIXING MACHINE OPERATOR Primary Care Provider [phone]- [phone] Encounter Details Date Type Department Care Team (Late Contact Info) Description 12/06/2023 Orders Only External Location [address] [place] [id number] Provider, External Social History Tobacco Use Types [...] Description 10/17/2024 11:20 AM EDT Office Visit [facility] [address] 5th Floor [address] [place] [address] Bjorn Galarza MD [address] [place] [address] 10/20/2024 11:00 AM EDT Office Visit [facility] Nephrology, Bone & Mineral Metabolism [address], [address] [place] [address] Sergei Gan MD [address] [place] [address] documented as of this encounter [...] on filedocumented in this encounter Care Teams Certified Phlebotomy Technician Relationship Specialty Start Date End Date Nae Cortés APRN [address] [place] [address] PCP - General 09/05/24 documented as of this encounter
--- OUTSIDE RECORDS SUMMARY | 2024-10-14 12:12 | XMS_ITS | Encounter Summary ---
Author Organization [employer] ([place], [place], [place], [place]) Address [address] [place] [address] Care Team Providers Care Outside Machinist Apprentice Name Role Phone Unavailable Primary Care Provider Unavailabl e Encounter Details Date Type Department Care Team (Late st Contact Info) Description 07/16/2018 Transcribed Document [facility] [place] [address] [place] [address] ProviderKristel MD [address] [place] [address] Social History Tobacco Use [...] Kristel ProviderMD - 07/16/2018 12:09 [place] [address] CINDY LABOY :1945 Visit Time:07/15/2018 Your Visit Summary Your Care Team Admitting Physician - RONAL ROBERT MD Attending Physician - DEREK DURAN MD-MENDYT Primary Care Physician - RANDAL ALBARADO (REF)[facility] Referring Physician - DEREK DURAN MD-ORT Your Diagnosis S/P total hip arthroplasty Unilateral primary osteoarthritis, right hip, Unilateral primary osteoarthritis, right hip These Are Your Goals I want to mow the yard. Interventions: Work with PT Discharge Vitals Heart Rate 72 Blood Pressure 105/62 What to do next Instructions From Your Care Team [facility], PT WILL NEED TO INFORM HOME HEALTH DIRECTLY OF WHEN SHE WILL CHANGE 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 TO HER OWN HOME [phone] PT HAS ALL NEEDED DME Follow-Up Appointments Follow Up with JAIDEN LEBRON PA-C When 08/26/2018 10:00 AM EDT Comments Appointment has been made Where: [address] [facility] [address] [place] [address]- Follow Up with Follow up with primary [...] Barley. Bulgur wheat. Millet. Bran muffins. Popcorn. [place] wafer crackers. Vegetables Sweet potatoes. Spinach. Kale. Artichokes. Cabbage. Broccoli. Green peas. Carrots. Squash. Fruits Berries. Pears. Apples. Oranges. Avocados. Prunes and raisins. Dried figs. Meats and Other Protein Sources [place], kidney, [place], and soy beans. Split peas. [...] gabriel has 11 g of protein. ??? [place] seeds ??? 1 oz has 5.5 g [...] floor. ??? Place frequently used items in zmek-jd-gdtfk places ??? Keep electrical cables out of [...] ??? Using the bathroom. ??? Using household permit agent or toxic chemicals. ??? Touching or taking [...] Assistance with quitting is available by contacting 7-033-TUZT-NOW. This is a free resource providing counseling, [...] computer, smartphone, or tablet. Just go to [employer] to get started. Questions? Call . Test [...] was given the opportunity to ask questions. Patient/Rug Cleaner Hand Name: Patient/Rug Cleaner Hand Signature: Relationship to Patient: Clinician/Hospital Rug Cleaner Hand Signature: Date: documented in this encounter Plan of Treatment Not on file documented as of this encounter Visit Diagnoses Not on filedocumented in this encounter
--- OUTSIDE RECORDS SUMMARY | 2024-10-14 12:12 | XMS_ITS | Encounter Summary ---
Author Organization [employer] ([place], [place], [place], [place]) Address [address] [place] [address] Care Team Providers Care Rewards Consultant Name Role Phone Unavailable Primary Care Provider Unavailabl e Encounter Details Date Type Department Care Team (Late st Contact Info) Description 07/15/2018 Transcribed Document [facility] Radiology [address] [place] [address] [place] [address] [place] [address] [address] Social History Tobacco Use Types [...] None. Primary Care Provider RANDAL ALBARADO (MD [facility] Chief Complaint Right hip pain History [...] Medical SVT (supraventricular tachycardia) / SNOMED CT 28693302 / Confirmed Hypertension / SNOMED CT 6652835084 / Confirmed Hypothyroidism / SNOMED CT 91370216 / Confirmed Anxiety disorder / SNOMED CT 794327225 / Confirmed COPD (chronic obstructive pulmonary disease) / SNOMED CT 03755981 / Confirmed Osteoarthritis / SNOMED CT 5523930028 / Confirmed Hyperlipidemia / SNOMED CT 99678502 / Confirmed At risk for sleep apnea / IMO 89889168 / Confirmed, Active Problems (8) Anxiety disorder At risk for sleep apnea COPD (chronic obstructive pulmonary disease) Hyperlipidemia Hypertension Hypothyroidism Osteoarthritis SVT (supraventricular tachycardia) Histories Past Medical History: Active Problems (8) Anxiety disorder At risk for sleep apnea COPD (chronic obstructive pulmonary disease) Hyperlipidemia Hypertension Hypothyroidism Osteoarthritis SVT (supraventricular tachycardia) Family History: Significant for cancer Procedure history: Thyroidectomy (19748845). Tonsillectomy (685974086). Cholecystectomy (93652440). Tubal ligation (714535804). - Spontaneous vaginal delivery. left hip replacment. [...]
--- OUTSIDE RECORDS SUMMARY | 2024-10-14 12:12 | XMS_ITS | Encounter Summary ---
Author Organization [employer] ([place], [place], [place], [place]) Address [address] [place] [address] Care Team Providers Care Hybrid Tester Name Role Phone Unavailable Primary Care Provider Unavailabl e Encounter Details Date Type Department Care Team (Late st Contact Info) Description 07/16/2018 Transcribed Document [facility] [place] [address] [place] [address] ProviderKristel MD [address] [place] [address] Social History Tobacco Use Types [...]
--- OUTSIDE RECORDS SUMMARY | 2024-10-14 12:12 | XMS_ITS | Encounter Summary ---
Author Organization [employer] ([place], [place], [place], [place]) Address [address] [place] [address] Care Team Providers Care Customer Operations Intern Name Role Phone Unavailable Primary Care Provider Unavailabl e Encounter Details Date Type Department Care Team (Late st Contact Info) Description 07/15/2018 Transcribed Document [facility] [place] [address] [place] [address] ProviderKristel MD [address] [place] [address] Social History Tobacco Use Types [...] NIRU AIKEN, PT - 07/16/2018 10:39 EDT Soils Technician Goals Other PT LTG Grid Goal #1 [...]
--- OUTSIDE RECORDS SUMMARY | 2024-10-14 12:12 | XMS_ITS | Encounter Summary ---
Author Organization [facility] Address [address] [place] [address] Care Team Providers Care Maintenance Shop Clerk Name Role Phone Nae Cortés TRAM Primary Care Provider [phone]- [phone] Encounter Details Date Type Department Care Team (Late st Contact Info) Description 10/10/2024 Telephone [facility] [address] [place] [address] [place] [address] Social History Tobacco Use Types Packs/Day Years Used Date Smoking Tobacco: Never Assessed Comments Unknown Sex and Gender Information Value Date Recorded Sex Assigned at Not on file Legal Sex Female 6:12 PM EDT Gender Identity Not on file Sexual Orientation Not on file documented as of this encounter Miscellaneous Notes * Telephone Encounter - Sweta Jones - 10/10/2024 3:28 PM EDT Returned call of pt's daughter, Sera, explained parking and location of clinic in [facility] * Telephone Encounter - Sweta Jones - 10/10/2024 2:03 PM EDT Patient Name: Cindy Braxton :1945 Date:10/10/2024 Affiliate site: [place] Referring Physician: [place] Education/ Information provided: This Nurse Liaison left voicemail for Cindy Braxton prior to an appointment on 10/17/2024. Provided patient with liaison contact information and encouraged patient to call with any questions, concerns or assistance needs. Will follow up with patient after appointment. Sweta Jones [facility] Nurse Liaison [phone] documented in this encounter Plan of Treatment Upcoming Encounters Date Type Department Care Team (Late st Contact Info) Description 10/17/2024 11:20 AM EDT Office Visit [facility] [address] [facility] 5th Floor [address] [place] [address] jBorn Galarza MD [address] [facility] [address] [place] [address] 10/20/2024 11:00 AM EDT Office Visit [facility] Nephrology, Bone & Mineral Metabolism [address] [facility] [facility], [address] [place] [address] Sergei Gan MD [address] [place] [address] documented as of this encounter Visit Diagnoses Not on filedocumented in this encounter Care Teams Maintenance Shop Clerk Relationship Specialty Start Date End Date Nae Cortés APRN [address] [address] PCP - General 09/05/24 documented as of this encounter
--- OUTSIDE RECORDS SUMMARY | 2024-10-14 12:12 | XMS_ITS | Encounter Summary ---
Author Organization [employer] ([place], [place], [place], [place]) Address [address] [place] [address] Care Team Providers Care Jewel Flat Surfacer Name Role Phone Unavailable Primary Care Provider Unavailabl e Encounter Details Date Type Department Care Team (Late st Contact Info) Description 07/16/2018 Transcribed Document [facility] [place] [address] [place] [address] ProviderKristel MD [address] [place] [address] Social History Tobacco Use Types [...] 07/16/2018 9:54 EDT by NAYA MINOR Care Management-Nutrition Faculty Member Final Discharge Planning Discharge Arrangements : Patient Post-Acute Information Patient Name: CINDY BRAXTON Gender: Female : [birth year] Age: 73 Years No Post-Acute Placement(s) Listed No Post-Acute Service(s) Listed No [place] Referral(s) Listed NAYA MINOR, Care Management-Nutrition Faculty Member - 07/16/2018 9:54 EDT Accts Placement Outside [facility] Account #1 Service : [employer] [facility] Organization : PHYSICAL THERAPY NAYA MINOR Care Management-Nutrition Faculty Member - 07/16/2018 9:54 EDT Discharge To Care Management : Home Health Services (Related/SOC within 3 days)-06 NAYA MINOR Care Management-Nutrition Faculty Member - 07/16/2018 9:54 EDT Electronically signed by Rosario [facility] Conversion Landscape Architecture Professor Cerner at 06/29/2022 1:31 PM CDT documented in this encounter Plan of Treatment Not on file documented as of this encounter Visit Diagnoses Not on filedocumented in this encounter
--- OUTSIDE RECORDS SUMMARY | 2024-10-14 12:12 | XMS_ITS | Encounter Summary ---
Author Organization [employer] ([place], [place], [place], [place]) Address [address] [place] [address] Care Team Providers Care Outside Sales Account Manager Name Role Phone Unavailable Primary Care Provider Unavailmorris e Encounter Details Date Type Department Care Team (Late st Contact Info) Description 07/15/2018 Transcribed Document [facility] [place] [address] [place] [address] ProviderKristel MD [address] [place] [address] Social History Tobacco Use Types [...] form. Electronically signed by Tatiana Ponce Conversion Aircraft Engine Mechanic Supervisor Cerner at 06/29/2022 1:24 PM CDT documented in this encounter Plan of Treatment Not on file documented as of this encounter Visit Diagnoses Not on filedocumented in this encounter
--- OUTSIDE RECORDS SUMMARY | 2024-10-14 12:12 | XMS_ITS | Encounter Summary ---
Author Organization [employer] ([place], [place], [place], [place]) Address [address] [place] [address] Care Team Providers Care Waste Removalist Name Role Phone Unavailable Primary Care Provider Unavailmorris e Encounter Details Date Type Department Care Team (Late st Contact Info) Description 07/16/2018 Transcribed Document [facility] [place] [address] [place] [address] ProviderKristel MD [address] [place] [address] Social History Tobacco Use Types [...] Historical ProviderMD - 07/16/2018 2:00 AM CDT Laminating Press Operator Details Entered On: 07/16/2018 2:49 EDT Performed [...]
--- OUTSIDE RECORDS SUMMARY | 2024-10-14 12:12 | XMS_ITS | Encounter Summary ---
Author Organization [employer] ([place], [place], [place], [place]) Address [address] [place] [address] Care Team Providers Care Flat Examiner Name Role Phone Unavailable Primary Care Provider Unavailabl e Encounter Details Date Type Department Care Team (Late st Contact Info) Description 07/22/2018 Transcribed Document [facility] [place] Medicine [address] [place] [address] ProviderKristel MD [address] [place] [address] Social History Tobacco Use Types [...] Policy Numbers : Insurance 1 Health Plan: [employer] PPO Policy Number: [id number] Authorization Number: [id number] Insurance Primary Name : [employer] Medicare Authorization Status-Primary : Notification only Reference Number-Primary : [id number] Authorization Number-Primary : [id number] Authorized Service Begin Date-Primary : 07/15/2018 EDT Authorization Comments-Primary : approved per availity for inpt Historical Authorization Comments-Primary : Comment 1: Uploaded clinicals to [employer] Medicare via [employer] by . (ERICK JONES RN-Utilization Review 07/15/2018 15:49) LYNN REID RN-Utilization Review - 07/22/2018 12:50 EDT Electronically signed by [facility], [facility] Conversion Overhead Cleaner Cerner at 06/29/2022 1:34 PM CDT documented in this encounter Plan of Treatment Not on file documented as of this encounter Visit Diagnoses Not on filedocumented in this encounter
--- OUTSIDE RECORDS SUMMARY | 2024-10-14 12:12 | XMS_ITS | Clinical Summary ---
Author Organization [employer] ([place], [place], [place], [place]) Address [address] [place] [address] Care Team Providers Care Cook Sauce Name Role Phone Unavailable Primary Care Provider [...] Date Bryson rded Speak language other than Yi at home Not on file 03/30/2023 Want [...] 04/21/2020 Falls Risk Screening 03/12/2024 Influenza Vaccine (#1) 2024 2, 12/29/2019, 12/31/2018, Additional history exists DTAP/TDAP/TD VACCINES (3 - T d or Tdap) 06/03/2031 06/02/2021, 05/16/1996 Pneumococcal 50+ years Completed 12/04/2016, 2015
--- OUTSIDE RECORDS SUMMARY | 2024-10-14 12:12 | XMS_ITS | Referral Summary ---
Author Organization [employer] ([place], [place], [place], [place]) Address [address] [place] [address] Care Team Providers Care Visual Display Associate Name Role Phone Unavailable Primary Care [...] Date Bryson rded Speak language other than Tajik at home Not on file 03/30/2023 Want [...]
--- OUTSIDE RECORDS SUMMARY | 2024-10-14 12:12 | XMS_ITS | Encounter Summary ---
Author Organization [employer] ([place], [place], [place], [place]) Address [address] [place] [address] Care Team Providers Care Gang Drill Operator Name Role Phone Unavailable Primary Care Provider Unavailabl e Encounter Details Date Type Department Care Team (Late st Contact Info) Description 06/28/2018 Transcribed Document [facility] [place] [address] [place] [address] ProviderKristel MD [address] [place] [address] Social History Tobacco Use Types [...]
--- OUTSIDE RECORDS SUMMARY | 2024-10-14 12:12 | XMS_ITS | Encounter Summary ---
Author Organization Healthcare Address [address] [place] [address] Care Team Providers Care Splicing Supervisor Name Role Phone Nae Cortés TRESTLEMAN Primary Care Provider +1- [phone] Encounter Details Date Type Department Care Team (Late Contact Info) Description 09/05/2024 Orders Only [facility] [address] [place] [address] Hedy Wright Stage 3 chronic [...] [place] [facility] [address] [facility] 5th Floor Wing [address], [address] [place] [address] Bjorn Galarza MD [address] [facility] [address] [place] [address] 10/20/2024 11:00 AM EDT Office Visit Professional [facility] Nephrology, Bone & Mineral Metabolism [address] [facility], [address] [place] [address] Sergei Gan MD [address] [place] [address] Scheduled Orders Name Type Priority Associated Diagnoses [...] insufficiency documented in this encounter Care Teams Splicing Supervisor Relationship Specialty Start Date End Date Nae Cortés APRN [facility] [id number] PCP - General 09/05/24 documented as of this encounter
--- OUTSIDE RECORDS SUMMARY | 2024-10-14 12:12 | XMS_ITS | Encounter Summary ---
Author Organization [facility] ([place], [place], [place], [place]) Address [address] [place] [address] Care Team Providers Care Corporate Relations Director Name Role Phone Unavailable Primary Care Provider Unavailabl e Encounter Details Date Type Department Care Team (Late st Contact Info) Description 06/28/2018 Transcribed Document [facility] [place] [facility] [place] [address] ProviderKristel MD [facility] [place] [address] Social History Tobacco Use Types [...] Hip Pain Primary Care Provider RANDAL ALBARADO (REF)[facility] History of Present Illness This patient is [...]
--- OUTSIDE RECORDS SUMMARY | 2024-10-14 12:12 | XMS_ITS | Encounter Summary ---
Author Organization Healthcare Address [address] [place] [address] Care Team Providers Care Plasterer Maintenance Name Role Phone Unavailable Primary Care Provider Unavailabl e Encounter Details Date Type Department Care Team ([facility] Contact Info) Description 08/22/2024 Orders Only External Location [address] [place] [address] Provider, External Social History Tobacco Use Types [...] [place] [facility] [address] [facility] 5th Floor Wing [address], [address] [place] [address] Bjorn Galarza MD [address] [facility] [address] [place] [address] 10/20/2024 11:00 AM EDT Office Visit Professional [employer] [facility] Nephrology, Bone & Mineral Metabolism [address] [facility], [address] [place] [address] Sergei Gan MD [address] [place] [address] documented as of this encounter [...]
--- OUTSIDE RECORDS SUMMARY | 2024-10-14 12:13 | XMS_ITS | Encounter Summary ---
Author Organization [employer] ([place], [place], [place], [place]) Address [address] [place] [address] Care Team Providers Care Perinatal Tech Name Role Phone Unavailable Primary Care Provider Grady peres Encounter Details Date Type Department Care Team (Late st Contact Info) Description 07/16/2018 Transcribed Document [facility] Family Medicine [address] [place] [address] ProviderKristel MD [address] [place] [address] Social History Tobacco Use Types [...]
--- OUTSIDE RECORDS SUMMARY | 2024-10-14 12:13 | XMS_ITS | Encounter Summary ---
Author Organization [facility] Address [address] [place] [address] Care Team Providers Care Autocad Operator Name Role Phone Nae Cortés APRN Primary Care Provider +1- [phone] Reason for Referral * Consultation (Routine) - Authorized Specialty Diagnoses / Procedures Referred By Radha santacruz Referred To Contact Nephrology Diagnoses Elevated BUN Elevated creatine kinase Nae Cortés APRN [address] [address] Phone: tel: fax: [facility] [address] [facility] [address] [address] Phone: tel: fax: Referral ID Status Reason Start Date Expiration Date Visits Requested Visits Authorized [id number] Authorized Specialty Services Required 08/27/2024 02/26/2026 1 1 Encounter Details Date Type Department Care Team (Late st Contact Info) Description 08/27/2024 Community Orders Community Practice [address] [place] [address] Nae Cortés APRN [address] [address] Elevated BUN (Primary Dx); Elevated [...] Description 10/17/2024 11:20 AM EDT [facility] [address] [facility] 5th Floor Wing D, [address] [place] [address] Bjorn Galarza MD [address] [facility] [address] [place] [address] 10/20/2024 11:00 AM EDT Office Visit Professional [facility] Nephrology, Bone & Mineral Metabolism [address] [facility], [address] [place] [address] Sergei Gan MD [address] [place] [address] Scheduled Referrals Name Type Priority Associated Diagnoses Order Schedule Ambulatory referral to Nephrology Outpatient Referral Routine Elevated BUN Elevated creatine kinase Expected: 08/27/2024 (Approximate), Expires: 02/28/2026 documented as of this encounter Visit Diagnoses Diagnosis Elevated BUN- Primary Other abnormal blood chemistry Elevated creatine kinase Other nonspecific abnormal serum enzyme levels documented in this encounter Care Teams Autocad Operator Relationship Specialty Start Date End Date Nae Cortés APRN [address] [address] PCP - General 09/05/24 documented as of this encounter
--- OUTSIDE RECORDS SUMMARY | 2024-10-14 12:13 | XMS_ITS | Encounter Summary ---
Author Organization [employer] ([place], [place], [place], [place]) Address [address] [place] [address] Care Team Providers Care Finish Molder Name Role Phone Unavailable Primary Care Provider Unavailabl e Encounter Details Date Type Department Care Team (Late st Contact Info) Description 07/16/[address] [facility] [place] [address] [place] [address] ProviderKristel MD [address] [place] [address] Social History Tobacco Use Types [...]
--- OUTSIDE RECORDS SUMMARY | 2024-10-14 12:13 | XMS_ITS | Encounter Summary ---
Author Organization [employer] ([place], [place], [place], [place]) Address [address] [place] [address] Care Team Providers Care Rubber Press Tender Name Role Phone Unavailable Primary Care Provider Unavailabl e Encounter Details Date Type Department Care Team (Late st Contact Info) Description 07/16/2018 Transcribed Document [facility] [place] [address] [place] [address] ProviderKristel MD [address] [place] [address] Social History Tobacco Use Types [...] 07/16/2018 9:53 EDT by NAYA MINOR, Care Management-Call Center Professional Initial Assessment I Previously Documented Living Environment : No qualifying data available. Living Situation : Home Patient Lives With : Alone Emergency Contact #1 : Sera Emergency Contact #1 Emergency Contact #1 Relationship : daughter Emergency Contact #2 : Nae Emergency Contact #2 Emergency Contact #2 Relationship : daughter NAYA MINOR, Care Management-Call Center Professional - 07/16/2018 9:53 EDT Initial Assessment II Sensory and Motor Deficits : Other: AYESHA Current Home Treatments and Equipment : Bedside commode, Shower chair, Walker NAYA MINOR, Care Management-Call Center Professional - 07/16/2018 9:53 EDT Discharge Needs I Anticipated Discharge Date : 07/16/2018 EDT Anticipated Discharge To, CM : Home with home health Current Home Treatment/Equipment : Current Home Treatment/Equipment No qualifying data available. NAYA MINOR, Care Management-Call Center Professional - 07/16/2018 9:53 EDT Discharge Needs II Professional Skilled Services : Professional Skilled Services No qualifying data available. Services and Community Resources : Home Health Needs Assistance with Transportation : No Discharge Options Discussed with Patient : [facility], Home Health NAYA MINOR Care Management-Call Center Professional - 07/16/2018 9:53 EDT documented in this encounter Plan of Treatment Not on file documented as of this encounter Visit Diagnoses Not on filedocumented in this encounter
--- OUTSIDE RECORDS SUMMARY | 2024-10-14 12:13 | XMS_ITS | Encounter Summary ---
Author Organization [employer] ([place], [place], [place], [place]) Address [address] [place] [address] Care Team Providers Care Power Line Installer Name Role Phone Unavailable Primary Care Provider Unavailabl e Encounter Details Date Type Department Care Team (Late st Contact Info) Description 07/16/2018 Transcribed Document [facility] [place] [address] [place] [address] ProviderKristel MD [address] [place] [address] Social History Tobacco Use Types [...] Kristel ProviderMD - 07/16/2018 12:10 [place] [address] CINDY LABOY :1945 Visit Time:07/15/2018 Your Visit Summary Your Care Team Admitting Physician - RONAL ROBERT MD Attending Physician - DEREK DURAN MD-MENDYT Primary Care Physician - ARNDAL ALBARADO (REF)MD-[facility] Referring Physician - DEREK DURAN MD-ORT Your Diagnosis S/P total hip arthroplasty Unilateral primary osteoarthritis, right hip, Unilateral primary osteoarthritis, right hip These Are Your Goals I want to mow the yard. Interventions: Work with PT Discharge Vitals Heart Rate 72 Blood Pressure 105/62 What to do next Instructions From Your Care Team [facility], PT WILL NEED TO INFORM HOME HEALTH DIRECTLY OF WHEN SHE WILL CHANGE 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 TO HER OWN HOME [phone] PT HAS ALL NEEDED DME Follow-Up Appointments Follow Up with JAIDEN LEBRON PA-C When 08/26/2018 10:00 AM EDT Comments Appointment has been made Where: [address] [facility] [address] [place] [address]- Follow Up with Follow up with primary [...] Barley. Bulgur wheat. Millet. Bran muffins. Popcorn. [place] wafer crackers. Vegetables Sweet potatoes. Spinach. Kale. Artichokes. Cabbage. Broccoli. Green peas. Carrots. Squash. Fruits Berries. Pears. Apples. Oranges. Avocados. Prunes and raisins. Dried figs. Meats and Other Protein Sources [place], kidney, [place], and soy beans. Split peas. [...] gabriel has 11 g of protein. ??? [place] seeds ??? 1 oz has 5.5 g [...] floor. ??? Place frequently used items in nroc-er-gzbeu places ??? Keep electrical cables out of [...] ??? Using the bathroom. ??? Using household family law paralegal or toxic chemicals. ??? Touching or taking [...] Assistance with quitting is available by contacting 9-672-FCKB-NOW. This is a free resource providing counseling, [...] Be sure to sign up for the [facility] patient portal, which gives you 02/10 access to your medical information ??? including these discharge instructions ??? using your computer, smartphone, or tablet. Just go to [employer] to get started. Questions? Call . Test [...] was given the opportunity to ask questions. Patient/Cow Buyer Name: Patient/Cow Buyer Signature: Relationship to Patient: Clinician/Hospital Cow Buyer Signature: Date: documented in this encounter Plan of Treatment Not on file documented as of this encounter Visit Diagnoses Not on filedocumented in this encounter
--- OUTSIDE RECORDS SUMMARY | 2024-10-14 12:13 | XMS_ITS | Encounter Summary ---
Author Organization [employer] ([place], [place], [place], [place]) Address [address] [place] [address] Care Team Providers Care Hospice Patient Care Secretary Name Role Phone Unavailable Primary Care Provider Grady peres Encounter Details Date Type Department Care Team (Late st Contact Info) Description 07/16/2018 Transcribed Document [facility] [place] [address] [place] [address] ProviderKristel MD [address] [place] [address] Social History Tobacco Use Types [...]
--- OUTSIDE RECORDS SUMMARY | 2024-10-14 12:13 | XMS_ITS | Encounter Summary ---
Author Organization [employer] ([place], [place], [place], [place]) Address [address] [place] [address] Care Team Providers Care Product Safety Officer Name Role Phone Unavailable Primary Care Provider Unavailabl e Encounter Details Date Type Department Care Team (Late st Contact Info) Description 07/16/2018 Transcribed Document [facility] [place] [address] [place] [address] ProviderKristel MD [address] [place] [address] Social History Tobacco Use Types [...]
--- OUTSIDE RECORDS SUMMARY | 2024-10-14 12:13 | XMS_ITS | Encounter Summary ---
Author Organization [employer] ([place], [place], [place], [place]) Address [address] [place] [address] Care Team Providers Care Novelty Chain Maker Name Role Phone Unavailable Primary Care Provider Unavailabl e Encounter Details Date Type Department Care Team (Late st Contact Info) Description 07/16/2018 Transcribed Document [facility] [place] [address] [place] [address] ProviderKristel MD [address] [place] [address] Social History Tobacco Use Types [...] Barley. Bulgur wheat. Millet. Bran muffins. Popcorn. [place] wafer crackers. Vegetables Sweet potatoes. Spinach. Kale. Artichokes. Cabbage. Broccoli. Green peas. Carrots. Squash. Fruits Berries. Pears. Apples. Oranges. Avocados. Prunes and raisins. Dried figs. Meats and Other Protein Sources [place], kidney, [place], and soy beans. Split peas. [...] gabriel has 11 g of protein. ?? [place] seeds ??? 1 oz has 5.5 g [...] floor. ?? Place frequently used items in qrtb-nf-xvmoq places ?? Keep electrical cables out of [...] ?? Using the bathroom. ?? Using household clinic mgr or toxic chemicals. ?? Touching or taking [...] 5. Step down with your stronger leg. Electronically signed by Tatiana Ponce Conversion Metal Furniture Assembly Supervisor Cerner at 06/29/2022 1:19 PM CDT documented in this encounter Plan of Treatment Not on file documented as of this encounter Visit Diagnoses Not on filedocumented in this encounter
--- OUTSIDE RECORDS SUMMARY | 2024-10-14 12:13 | XMS_ITS | Clinical Summary ---
Author Organization [facility] Address [address] [place] [address] Care Team Providers Care Cured Meat Packing Supervisor Name Role Phone Nae Cortés TRAM Primary Care Provider +1- [phone] Encounters Date Type Department Care Team Description 10/13/[address] [facility] Comprehensive Vascular Clinic [address] [facility] 5th Floor Wing [address], [address] [place] [address] Bjorn Galarza MD [facility] Clinical Concern/Question 10/10/2024 Telephone [facility] [address] [place] [address] Sweta Jones 09/11/2024 Telephone [email or web address] Vascular Clinic [address] [facility] 5th Floor Wing [address], [address] [place] [address] Bjorn Galarza MD 09/11/2024 Telephone [facility] Nephrology, Bone & Mineral Metabolism [address] [facility], [address] [place] [address] Sergei Gan MD 09/05/2024 Orders Only [facility] [address] [place] [address] Hedy Wright Stage 3 chronic kidney disease, unspecified whether stage 3a or 3b CKD (CMS/HCC) (Primary Dx); Vitamin D insufficiency 08/28/2024 Orders Only [facility] [address] [place] [address] Maya Krueger, RN Infrarenal abdominal aortic aneurysm (AAA) without rupture (CMS/HCC) (Primary Dx) 08/27/2024 Community Orders Community Practice [address] [place] [address] Nae Cortés APRN Elevated BUN (Primary Dx); Elevated creatine kinase 08/22/2024 Orders Only External Location [address] [place] [address] Provider, External from Last 3 Months Social [...] Description 10/17/2024 11:20 AM EDT Office Visit [facility] [address] [facility] 5th Floor Wing [address], [address] [place] [address] Bjorn Galarza MD [address] [facility] [address] [place] [address] 10/20/2024 11:00 AM EDT Office Visit Professional [facility] Nephrology, Bone & Mineral Metabolism [address] [facility], [address] [place] [address] Sergei Gan MD [address] [place] [address] Health Maintenance Due Date Last Done Comments [facility]-Bone Density Scan 1945 [facility]-Depression Screening 1945 [facility]-Hepatitis C Screening 1945 [facility]-Medicare Annual Wellness (AWV) 1945 [facility]-/Child/Adol SDOH Screenings 1945 [facility]- SDOH Screenings 1964 [facility]-Adult SDOH Screenings 1964 [facility]-Zoster Vaccines (1 of 2) 1996 [facility]-RSV Vaccine: 60+ Years or (1 - 1-dose 75+ series) 2021 [id number] Vaccine (3 - 2023- season) 2023 05/19/2020, 04/21/2020 [facility]-Influenza Vaccine (#1) 11/10/202401/25, 01/19/2022, 12/29/2019, Additional history exists [facility]-DTaP,Tdap,and Td [...] Final Result from Last 3 Months Insurance [facility] MEDIC[facility] Care Teams Cured Meat Packing Supervisor Relationship Specialty Start Date End Date Nae Cortés APRN [address] [place] [phone] PCP - General 09/05/24
--- OUTSIDE RECORDS SUMMARY | 2024-10-14 12:13 | XMS_ITS | Encounter Summary ---
Author Organization [facility] Address [address] [place] [address] Care Team Providers Care Hospitalist Name Role Phone Unavailable Primary Care Provider Unavailabl e Reason for Referral * Consultation (Routine) - Authorized Specialty Diagnoses / Procedures Referred By Contact Referred To Contact Vascular Surgery / Comprehensive Vascular Clinic Diagnoses Infrarenal abdominal aortic aneurysm (AAA) without rupture (CMS/HCC) Roselia Washington APRN [address] [facility] [address] [place] [address] Phone: tel: fax: [facility] Comprehensive Vascular Clinic [address] [facility] 5th Floor Wing [address], [address] [place] [address] Phone: tel: fax: Referral ID Status Reason Start Date Expiration Date Visits Requested Visits Authorized [id number] Authorized Specialty Services Required 08/28/2024 02/27/2026 1 1 Scheduling Instructions Requesting VALENTIN appt for infrarenal AAA 4.9 x 4.6. Requested powershare of images. Encounter Details Date Type Department Care Team (Late st Contact Info) Description 08/28/2024 Orders Only [facility] [place] [facility] [address] [place] [address] Maya Krueger, RN HOSP. SPECIAL DIAGNOSTIC FACILITIES [...] Description 10/17/2024 11:20 AM EDT Office Visit [facility] Vascular Clinic [address] [facility] 5th Floor Wing [address], [address] [place] [address] Bjorn Galarza MD [address] [facility] [address] [place] [address] 10/20/2024 11:00 AM EDT Office Visit [facility] Nephrology, Bone & Mineral Metabolism [address] [facility], [address] [place] [address] Sergei Gan MD [address] [place] [address] Scheduled Referrals Name Type Priority Associated Diagnoses Order Schedule Ambulatory referral to Vascular Surgery Outpatient Referral Routine Infrarenal abdominal aortic aneurysm (AAA) without rupture (CMS/HCC) Expected: 08/28/2024, Expires: 03/01/2026 documented as of this encounter Visit Diagnoses Diagnosis Infrarenal abdominal aortic aneurysm (AAA) without rupture (CMS/HCC)- Primary documented in this encounter
[2024-10-14 12:16] LABS: Microscopic, Urine URINE MICROSCOPIC (MICROSCOPIC)
[2024-10-14 12:37] LABS: Hematocrit 37.5 % (37.0-47.0); Hemoglobin 11.8 g/dL (12.2-16.2); Immature Granulocytes % 0.3 %; Mean Corpuscular HGB Conc 31.5 g/dL (31.8-35.4); Mean Corpuscular Hemoglobin 29.7 pg (27.0-31.2); Mean Corpuscular Volume 94.5 fl (81-99); Nucleated Red Blood Cells % 0 %; Platelet Count 258 K/mm3 (142-424); Red Blood Count 3.97 M/mm3 (4.20-5.40); Red Cell Distribution Width-SD 46.2 fL; White Blood Count 6.7 K/mm3 (4.8-10.8)
[2024-10-14 12:44] LABS: Bilirubin,Urine Negative (Negative); Color,Urine YELLOW (Yellow); Glucose,Urine (UA) 3+ (Negative); Ketones,Urine Negative (Negative); Leukocyte Esterase,Urine Negative (Negative); PH,Urine 6.0 (5.0-8.5); Protein,Urine Negative (Negative); Specific Gravity, Urine 1.010 (1.005-1.030); Urobilinogen,Urine 0.2 EU/dl (0.2)
[2024-10-14 13:14] LABS: Squamous Epithelial Cell,Urine Occasional #/hpf (0-5)
[2024-10-14 14:15] LABS: Albumin Level 4.2 g/dl (3.5-5.0); Anion Gap 11.6 mEq/L (5-15); Blood Urea Nitrogen 16 mg/dl (7-17); Calcium 9.6 mg/dl (8.4-10.2); Carbon Dioxide 27 mmol/L (22.0-30.0); Chloride 96 mmol/L (98-107); Creatinine,Serum 0.80 mg/dl (0.52-1.04); Estimated Glomerular Filt Rate 69 ml/min (>60); GFR (African American) 84 ML/MIN (>60); Glucose 107 mg/dl (74-100); Phosphorous 4.2 mg/dl (2.5-4.5); Potassium 4.6 mmoL/L (3.5-5.1); Sodium 130 mmol/L (136-145)
[2024-10-14 14:32] LABS: 25-OH Vitamin D, Total 45.5 ng/mL (30-100)
== END 2024-10-14 23:59 | disposition home or self-care (01) ==
LOC: LAB 12:10
PROVIDERS: PCP Nurse Practitioner Family; Visit Provider Student in an Organized Health Care Education/Training Program
DX: N18.30 Chronic kidney disease, stage 3 unspecified (principal)
CPT/HCPCS: 36415; 80069; 81001; 82306; 82570; 83970; 84156; 85025

== ENCOUNTER 2024-11-21 12:45 | Outpatient (CLI) | payer MEDICARE, MEDICAID, SELFPAY ==
--- OUTSIDE RECORDS SUMMARY | 2024-10-17 11:20 | XMS_ITS | Encounter Summary ---
Author Organization [facility] Address [address] 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 (CMS/HCC) Procedures CT Angio Abdomen Pelvis Bjorn Galarza MD [address] [facility] [address] [place] [address] Phone: tel: fax: Referral ID Status Reason Start Date Expiration Date V isits Requested Visits Authorized [id number] Pending Review 10/17/2024 04/18/2026 1 1 Reason for Visit * Reason Comments Aortic Aneurysm * Consultation (Routine) - Closed Specialty Diagnoses / Procedures Referred By Contact Referred To Contact [facility] Diagnoses Infrarenal abdominal aortic aneurysm (AAA) without rupture (CMS/HCC) Roselia Washington APRN [address] [facility] [address] [place] [address] Phone: tel: fax: [facility] [address] [place] [address] Phone: tel: fax: Referral ID Status Reason Start Date Expiration Date V isits Requested Visits Authorized [id number] Closed Specialty Services Required 08/28/2024 02/27/2026 1 1 Encounter Details Date Type Department Care Team (Latest Contact Info) Description 10/17/2024 11:20 AM EDT Office Visit [facility] [address] [place] [address] Bjorn Galarza MD [address] [facility] [address] [place] [address] 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 Never 10/17/2024 Q2: How many drinks containi ng alcohol do you have on a typical day when you are drinking? Patient does not drink Q3: How often do you have si x or more drinks on one occasion? Never 10/17/2024 Comments Unknown Sex and Gender Information Value Date Recorded Sex Assigned at Not on file Legal Sex Female 6:12 PM EDT Gender Identity Not on file Sexual Orientation Not on file documented as of this encounter Last Filed Vital Signs Vital Sign Reading Time Taken Comments Blood Pressure 111/71 10/17/2024 11:28 AM EDT Pulse 68 10/17/2024 11:28 AM EDT Temperature 36.4 C (97.5 F) 10/17/2024 11:25 AM EDT Respiratory Rate - - Oxygen Saturation - - Inhaled Oxygen Concentration - - Weight 53.5 kg (118 lb) 10/17/2024 11:25 AM EDT Height 154.9 cm (5' 1 ) 10/17/2024 11:25 AM EDT Body Mass Index 22.3 10/17/2024 11:25 AM EDT documented in this encounter Functional Status * AUDIT-C Score Answer Date of Assessment Author 0 10/17/2024 11:29 AM EDT Saúl Herrera * Question Answer Date of Assessment Author Q1: How often do you have a drink containing alcohol? Never 10/17/2024 11:29 AM EDT Saúl Herrera Q2: How many drinks containing alcohol do you have on a typical day when you are drinking? Patient does not drink 10/17/2024 11:29 AM EDT Saúl Herrera Q3: How often do you have six or more drinks on one occasion? Never 10/17/2024 11:29 AM EDT Saúl Herrrea documented as of this encounter Miscellaneous Notes * Progress Notes - Phillip Kramer MD - 10/17/2024 11:20 AM EDT Dear Nae Cortés APRN, HPI 79-year-old female seen today in clinic as a new patient. She is here in the vascular clinic to discuss repair visceral abdominal aortic aneurysm. 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 She has a past medical history including COPD, chronic kidney disease, congestive heart failure, and pulmonary hypertension. Dependent on a wheelchair for long distances. Denies any symptoms from her aneurysm. Vascular Surgery History: none I personally and independently reviewed and interpreted the CT Images from today's visit which showed: CTA abdomen and pelvis reviewed: Bilobed paravisceral abdominal aortic aneurysm with maximal diameter measured at 4.0 cm. Her chronic comorbid conditions that impact our treatment planning include: I reviewed the following co-morbidities which are stable and controlled: There are no active problems to display for this patient. The following portions of the chart were reviewed this encounter and updated as appropriate: Tobacco Allergies Meds Problems Med Hx Surg Hx Fam Hx Subjective Review of Systems Constitutional: Negative for chills, fatigue, fever and unexpected weight change. HENT: Negative for congestion and facial swelling. Eyes: Negative for discharge and itching. Respiratory: Negative for cough and shortness of breath. Cardiovascular: Negative for chest pain and leg swelling. Gastrointestinal: Negative for abdominal pain and blood in stool. Endocrine: Negative for polydipsia and polyphagia. Genitourinary: Negative for difficulty urinating and dysuria. Musculoskeletal: Negative for arthralgias, back pain and myalgias. Skin: Negative for rash and wound. Allergic/Immunologic: Negative for environmental allergies and food allergies. Neurological: Negative for syncope, speech difficulty, weakness and numbness. Hematological: Negative for adenopathy. Does not bruise/bleed easily. Psychiatric/Behavioral: Negative for agitation and behavioral problems. Objective Physical Exam Assessment/Plan In Summary: Cindy Braxton is a 79 y.o. year old female who we saw today in clinic. 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 Thoroughly discussed disease etiology and surgical options. Currently patient does not meet criteria for repair. We will see her back in 6 months with a repeat CT angiogram of her abdomen and pelvis for surveillance of her aneurysm. Phillip Kramer MD The patient was counseled on the importance of: - aspirin therapy for overall cardiovascular health - tobacco avoidance (a total time of 4-10 minutes was undertaken, addressing the role of tobacco incardiovascular disease and disease progression) - statin therapy for control of hyperlipidemia and plaque stabilization - blood pressure monitoring - proper nutrition, exercise and maintaining a healthy weight. Cosigned by Bjorn Galarza MD at 10/17/2024 6:46 PM EDT Associated attestation - Bjorn Galarza MD - 10/17/2024 6:46 PM EDT I saw and evaluated the patient with the resident/fellow. I discussed the case with the resident/fellow and agree with the findings and plan as documented. This patient has a paravisceral abdominal aortic aneurysm. I reconstructed this patient's CTA on 3Dim[employer] software and on centerline her maximum diameter is 4 cm. She has small iliac vessels and isnot a candidate for open aortic aneurysm repair. We will continue to monitor her aneurysm with serial CTA. If the time comes for her to undergo aneurysm repair, I suspect her best option would be perform a TAMBE with common iliac artery conduit via a retroperitoneal exposure. 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 (CMS/HCC) 1 Occurrences starting 10/17/2024 until 04/19/2026 documented as of this encounter Visit Diagnoses Diagnosis 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
--- OUTSIDE RECORDS SUMMARY | 2024-10-20 11:00 | XMS_ITS | Encounter Summary ---
Author Organization [facility] Address [address] [place] [address] Care Team Providers Care Brownell Operator Name Role Phone Nae Cortés DROP HAMMER OPERATOR HELPER Primary Care Provider [phone] Reason for Referral * Consultation (Routine) - Authorized Specialty Diagnoses / Procedures Referred By Radha santacruz Referred To Contact Diagnoses Chronic diastolic heart failure (CMS/HCC) Acute kidney injury (BETH) with acute tubular necrosis (ATN) (CMS/HCC) Sergei Gan MD [address] [place] [phone] Phone: tel: fax: Referral ID Status Reason Start Date Expiration Date V isits Requested Visits Authorized [id number] Authorized 10/20/2024 04/21/2026 1 1 Reason for Visit * Reason Comments Consult * Consultation (Routine) - Closed Specialty Diagnoses / Procedures Referred By Contmary t Referred To Contact Nephrology Diagnoses Elevated BUN Elevated creatine kinase Milana Nae Guerra, DROP HAMMER OPERATOR HELPER [address] [place] [address] Phone: tel: fax: [facility] [address] [facility] [address] [address] Phone: tel: fax: Referral ID Status Reason Start Date Expiration Date V isits Requested Visits Authorized [id number] Closed Specialty Services Required 08/27/2024 02/26/2026 1 1 Encounter Details Date Type Department Care Team (Late st Contact Info) Description 10/20/2024 11:00 AM EDT Office Visit [facility] Nephrology, Bone & Mineral Metabolism [address] [facility], [address] [place] [address] Sergei Gan MD [address] [place] [address] Chronic diastolic heart failure (CMS/HCC) (Primary Dx); Hypervolemia associated with renal insufficiency; Other emphysema (CMS/HCC); Malignant neoplasm of female breast, unspecified estrogen receptor status, unspecified laterality, unspecified site of breast; Acute kidney injury (BETH) with acute tubular necrosis (ATN) (CMS/HCC); Hyponatremia Social History Tobacco Use Types Packs/Day Years Used Date Smoking Tobacco: Every Day Cigarettes 1 53.1 Started: 10/18/1970 Smokeless Tobacco: Never Alcohol Use Standard Drinks/Week Comments Never 0 (1 standard drink = 0.6 oz pur e alcohol) PHQ-2 Answer Date Recorded Patient Health Questionnaire-2 Score 3 10/20/2024 PHQ-9 Answer Date Recorded Patient Health Questionnaire-9 Score 4 10/20/2024 AUDIT-C Answer Date Recorded Q1: How often [...] Sign Reading Time Taken Comments Blood Pressure 112/67 10/20/2024 11:07 AM EDT Pulse 77 10/20/2024 11:07 AM EDT Temperature - - Respiratory Rate - - Oxygen Saturation - - Inhaled Oxygen Concentration - - Weight 53.5 kg (118 lb) 10/20/2024 11:07 AM EDT Height 154.9 cm (5' 1 ) 10/20/2024 11:07 AM EDT Body Mass Index 22.3 10/20/2024 11:07 AM EDT documented in this encounter Functional Status * Over the past 2 weeks, how often have you been bothered by any of the following problems? Question Answer Date of Assessment Author Little interest or pleasure in doing things Not at all 10/20/2024 11:23 AM EDT Becca Haskins Feeling down, depressed, or hopeless Nearly every day 10/20/2024 11:23 AM EDT Becca Haskins Patient Health Questionnaire-2 Score 3 10/20/2024 11:23 AM EDT Becca Haskins * Question Answer Date of Assessment Author Trouble falling or staying asleep, or sleeping too much Not at all 10/20/2024 11:23 AM Becca Graf Feeling tired or having terrie le energy Several days 10/20/2024 11:23 AM EDBecca Freeman Poor appetite or overeating Not at all 10/20/2024 11 :23 AM EDT Becca Haskins Feeling bad about yourself - or that you are a failure or have let yourself or your family down Not at all 10/20/2024 11:23 AM EDT Becca Gallegos Trouble concentrating on thi ngs, such as reading the newspaper or watching television Not at all 10/20/2024 11:23 AM Becca Graf Moving or speaking so slowly that other people could have noticed? Or the opposite - being so fidgety or restless that you have been moving around a lot more than usual. Not at all 10/20/2024 11:23 AM CHANTELT Becca Haskins Thoughts that you would be b ravi off or hurting yourself in some way Not at all 10/20/2024 11:23 AM Becca Graf Patient Health Questionnaire -9 Score 4 10/20/2024 11:23 AM Becca Graf * If you checked off any problems on this questionnaire so far, Question Answer Date of Assessment Author How difficult have these problems made it for you to do your work, take care of things at home, or get along with other people? Not difficult at all 10/20/2024 11:23 AM EDT Becca Haskins * How difficult have these problems made it for you to do your work, take care of things at home, or get along with other people? Answer Date of Assessment Author Not difficult at all 10/20/2024 11:23 AM EDT Becca Gallegos documented as of this encounter Miscellaneous Notes * Progress Notes - Sergei Gan MD - 10/20/2024 11:00 AM EDT Nephrology Outpatient Clinic New Consult Note General Nephrology Clinic Patient: Cindy Braxton Primary Care Provider: Nae Cortés APRN Referring Provider: Nae Cortés APRN Reason for consult: Hyponatremia and acute kidney injury vs CKD Telehealth Statement Patient Verification Patient identity has been confirmed using name and date of ? Yes Authorizations and Agreements/Telemedicine Consent sent and consent confirmed? Yes Patient Location: Home/Other Patient confirms they are physically located in [place]? Yes If the patient is not physically located in [place], the provider has confirmed with [facility] thatthe provider is authorized to provide services in patient's stated location? N/A Provider Location: [facility] facility Audio and video or audio only? Audio and video Total visit time: 30 minutes HPI/Subjective Cindy Braxton is a 79 y.o. female with a PMH of COPD, CHF, HTN, AAA, Breast cancer x2, presented to hospital ~1 year ago with with hypoxemia. At that hospital visit, they diagnosed her with COPD, CHF, and she was started on several new medications including spironolactone 25 mg , Jardiance 10mg , irbesartan 75 mg, amlodipine 5 mg, bumetanide 1 mg, 99 mg potassium tablet Today she is at home with her 2 daughters. They provide additional details throughout the interview. She used to be very swollen in her legs, but this has improved with use of diuretics. She has consistent blood pressures in the 110s- 120s systolic at home. She has not been falling and does not feeldizzy at rest. She does feel unsteady on her feet when walking around the house. She drinks a lot of fluids throughout the day. She will have 3-4 cups of coffee, some milk, and 3-4 bottles of water each day. She urinates a lot as well. No other acute complaints today. ROS Review of Systems History: Past Medical History[1] Problem List[2] Surgical History[3] Family History[4] Social History Socioeconomic History Marital status: Spouse name: Not on file Number of children: Not on file Years of education: Not on file Highest education level: Not on file Occupational History Not on file Tobacco Use Smoking status: Every Day Current packs/day: 1.00 Average packs/day: 1 pack/day for 53.0 years (53.0 ttl pk-yrs) Types: Cigarettes Start date: 10/18/1971 Smokeless tobacco: Never Substance and Sexual Activity Alcohol use: Never Drug use: Defer Sexual activity: Defer Other Topics Concern Not on file Social History Narrative Not on file Social Drivers of Health Financial Resource Strain: Not on file Food Insecurity: No Food Insecurity (03/30/2023) Received from [employer] ([place], [place], [place], [place]) Food Insecurity Food run out past 12 months: Not on file Food did not last past 12 months: Not on file Transportation Needs: Not on file Physical Activity: Not on file Stress: Not on file Social Connections: Low Risk (03/30/2023) Received from [employer] ([place], [place], [place], [place]) Family and Community Support Help with Day to Day Activities: Not on file Feeling Lonely or Isolated: Not on file Intimate Partner Violence: Not on file Housing Stability: Not on file Allergies[5] Medications: Current Medications: Current Outpatient Medications Medication Instructions albuterol 108 (90 Base) MCG/ACT inhaler ALPRAZolam (Xanax) 0.5 MG tablet amLODIPine (NORVASC) 5 mg, Daily anastrozole (ARIMIDEX) 1 mg, Daily Bevespi Aerosphere 9-4.8 MCG/ACT aerosol 2 puffs, 2 times daily bumetanide (BUMEX) 1 mg, 2 times daily citalopram (CELEXA) 40 mg, Daily Cyanocobalamin (Vitamin B-12) 2500 MCG sublingual tablet dicyclomine (Bentyl) 20 MG tablet TAKE 1 TABLET BY MOUTH TWICE DAILY NEEDED FOR IBS HYDROcodone-acetaminophen (Calhoun) 5-325 MG tablet irbesartan (Avapro) 75 MG tablet Jardiance 10 MG levothyroxine (SYNTHROID, LEVOXYL) 150 mcg, Daily multivitamin (Theragran) tablet 1 tablet, Daily Potassium 99 MG tablet spironolactone (Aldactone) 25 MG tablet Objective Visit Vitals BP 112/67 (BP Location: Left arm, Patient Position: Sitting, BP Cuff Size: Adult) Pulse 77 Ht 1.549 m (5' 1 ) Wt 53.5 kg (118 lb) BMI 22.30 kg/m?? Smoking Status Every Day BSA 1.52 m?? Heart Rate: [77] 77 BP: (112)/(67) 112/67 Physical Exam: Physical Exam Constitutional: Appearance: Normal appearance. HENT: Head: Normocephalic. Right Ear: External ear normal. Left Ear: External ear normal. Nose: Nose normal. Mouth/Throat: Mouth: Mucous membranes are moist. Pulmonary: Effort: Pulmonary effort is normal. Neurological: General: No focal deficit present. Mental Status: She is alert and oriented to person, place, and time. Psychiatric: Mood and Affect: Mood normal. Behavior: Behavior normal. Thought Content: Thought content normal. Judgment: Judgment normal. Physical exam limited by telehealth Laboratory: I have personally reviewed these lab results and discuss their significance below. LAB RESULTS Renal Panel: No results found for: NA , K , CL , CO2 , BUN , BUNPRE , BUNPOST , CREATININE , EGFR , CA , GLU , PHOS , ALBUMIN CBC: No results found for: WBC , RBC , HGB , HCT , PLT , MCV , MCH , MCHC , RDW , NRBC Iron studies: No results found for: FERRITIN , IRON , IRONSAT , TIBC Urine studies: No results found for: CAR , CAUR , CALCIUMUR , PHOSUR , [id number] , LECMS75IQX , CREATUR MBD: No results found for: PTH , CA , CALCIUM , ICAS , PHOS , MG VITAMIN D 25 No results found for: VITD25 VITAMIN D 1,25 No results found for: VITD32 Paraproteinemia Labs: No results found for: SPEP , KAPPALAMBDA Nutritional: No results found for: PREALBUMIN , VITD25 Endocrine profile: No results found for: TESTOSTERONE , TESTOST , FSH , LH , PROLACTIN , TSH , U4HDMIM , FREET4 , CORTISOL Imaging: Impression & Plan: #Acute kidney injury 2/2 medications #Right renal artery stenosis #Possible CKD stage 3a/b Etiology: Newly diagnosed heart failure, patient placed on numerous medications which can decrease eGFR temporarily such as her Irbesartan, spironolactone, and Jardiance. She is particularly sensitive to these medications because of her renal artery stenosis noted on the CT of her abdomen/pelvis Etiology of CKD Likely some degree of CKD given her multiple medical comorbidities. She has significant vascular disease and heart disease so likely has some hypertensive nephrosclerosis. Baseline serum creatinine: unclear, most recent creatinine was 1.6 Electrolytes, acid/base, volume status wnl Urine: no significant hematuria/proteinuria Anatomy: noted renal artery stenosis on ct abdomen Risk factor reduction to slow progression of kidney disease: -BP Control goal BP <130/80 -DM control goal A1c <7.0% -Lifestyle management: ---Maintain healthy weight: Body mass index is 22.3 kg/m??. Is at goal ---Diet recommendations: Heart healthy and Low sodium <2g/day ---Daily exercise 20-30 minutes as tolerated -Avoid NSAIDs -CALVIN blockade: Irbesartan + Fritz -SGLT2 inhibitor: Jardiance #Hyponatremia, mild to moderate most recent sodium level 127 -Not on a thiazide. She is on fritz and bumex to treat her hypervolemia from heart failure. She drinks a LOT of fluids which is likely to main etiology of hre hyponatremia so we discussed limiting water and other fluids intake. I do not recommend increasing sodium intake given it will make her heart failure worse. -Other possible etiology would be her SSRI citalopram, she has been on this medication for many years but SIADH can occur at any time. I will check urine sodium and urine osm to see what etiology is.She would benefit from magnesium supplement if her mag level is low. #Chronic combined congestive heart failure #COPD #Hypervolemia #Hypertension -on irbesartan, spironolactone, bumetanide, potassium 99 mg Recommendations and plan: -I have reviewed Ms. Braxton's laboratory studies and recent notes and we discussed her elevated creatinine value and likely etiology being related to all of the new medicatiosn she is on and her renal artery stenosis. I cannot determine her baseline creatinine at this time, but I do suspect a degree of CKD perhaps stage 3a/b with GFR in the 30s-40s. I will repeat labs in 2-3 months and see her at [facility] in [place]. -Continue all medications at current doses -Recommended and counseled her to decrease fluid intake to help with hyponatremia -Consider reducing dose of citalopram from 40mg to 20 mg in case this is playing a role in her hyponatremia --> check urine sodium and osm to r/o SIADH -Avoid NSAIDs RTC in 2-3 months in [facility] Sergei Gan MD Division of Nephrology [facility] Counseling Documentation: The patient was counseled regarding COUNSELING TOPICS: diagnostic results, prognosis, risks and benefit of treatment options, risk factor reductions, instructions for management, patient and family education, medication changes, diagnostic impressions, Heart healthy diet, regular physical activity and weight control, Avoidance of NSAIDs and other nephrotoxins, and ocean transportation intermediary nature of condition. Education provided was verbal counseling.Additional time was spent in care coordination including medical record review. ENCOUNTER TIMING: I personally spent a total of 45 minutes on this encounter. This time includes face to face with patient, counseling and discussion, lab/result interpretation, coordination of follow-up care, document review. The total time of encounter was 45 minutes and greater than 50% of the visit was spent in c ounseling/coordination of care. . MDM: - was based on the following: Labs reviewed Urine studies: UA Past imaging reviewed Old chart reviewed Imaging directly visualized and personally interpreted CT ABDOMEN/CHEST renal artery stenosis on the right Comorbidities complicating the care of the patient chronic heart failure, COPD ORDERS PLACED THIS ENCOUNTER Orders Placed This Encounter Procedures CBC W/O Differential Standing Status: Future Expected Date: 11/19/2024 Expiration Date: 04/23/2026 Release to patient in [facility]: Immediate Urinalysis with reflex microscopic (Culture NOT Included) Standing Status: Future Expected Date: 11/19/2024 Expiration Date: 04/23/2026 Release to patient in [facility]: Immediate Vitamin D 25 Hydroxy Standing Status: Future Expected Date: 11/19/2024 Expiration Date: 04/23/2026 Release to patient in [facility]: Immediate PTH Intact Total Standing Status: Future Expected Date: 11/19/2024 Expiration Date: 04/23/2026 Release to patient in [facility]: Immediate Albumin-creatinine ratio, urine, random Standing Status: Future Expected Date: 11/19/2024 Expiration Date: 04/23/2026 [facility] Protein, Random, Urine with Creatinine Standing Status: Future Expected Date: 11/19/2024 Expiration Date: 04/23/2026 [facility] Renal Function Panel, Plasma Standing Status: Future Expected Date: 11/19/2024 Expiration Date: 04/23/2026 [facility] Osmolality, urine Standing Status: Future Expected Date: 11/19/2024 Expiration Date: 04/23/2026 [facility] Im[facility] [1] Sodium, urine, random Standing Status: Future Expected Date: 11/19/2024 Expiration Date: 04/23/2026 Release to patient in [facility]: Immediate [1] Follow Up Nephrology [facility] Standing Status: Future Expected Date: 12/20/2024 Expiration Date: 11/20/2025 Referral Priority: Routine Referral Type: Consultation Number of Visits Requested: 1 Problem List Items Addressed This Visit Chronic diastolic heart failure (CMS/HCC) - Primary Relevant Orders CBC W/O Differential Urinalysis with reflex microscopic (Culture NOT Included) Vitamin D 25 Hydroxy PTH Intact Total Albumin-creatinine ratio, urine, random Protein, Random, Urine with Creatinine Renal Function Panel, Plasma Follow Up Nephrology Hypervolemia associated with renal insufficiency Other emphysema (CMS/HCC) Malignant neoplasm of female breast Acute kidney injury (BETH) with acute tubular necrosis (ATN) (CMS/HCC) Relevant Orders CBC W/O Differential Urinalysis with reflex microscopic (Culture NOT Included) Vitamin D 25 Hydroxy PTH Intact Total Albumin-creatinine ratio, urine, random Protein, Random, Urine with Creatinine Renal Function Panel, Plasma Follow Up Nephrology Hyponatremia Relevant Orders CBC W/O Differential Urinalysis with reflex microscopic (Culture NOT Included) Vitamin D 25 Hydroxy PTH Intact Total Albumin-creatinine ratio, urine, random Protein, Random, Urine with Creatinine Renal Function Panel, Plasma Osmolality, urine Sodium, urine, random I confirm that I have addressed the patient's longitudinal multifaceted and complex health related active and chronic conditions that will require ongoing care with myself or someone on my team. [1] Past Medical History: Diagnosis Date Abdominal aortic aneurysm (AAA) (CMS/HCC) Breast cancer COPD (chronic obstructive pulmonary disease) ([facility]/HCC) Depressed Heart failure Kidney disease Pulmonary hypertension (CMS/HCC) SVT (supraventricular tachycardia) ([facility]) [2] There is no problem list on file for this patient. [3] Past Surgical History: Procedure Laterality Date BREAST LUMPECTOMY CATARACT EXTRACTION Bilateral CHOLECYSTECTOMY GALLBLADDER SURGERY HIP ARTHROPLASTY Bilateral THYROIDECTOMY, PARTIAL TUBAL LIGATION [4] Family History Family history unknown: Yes [5] Allergies Allergen Reactions Diclofenac Swelling Pseudoephedrine Hcl Hives Amoxicillin Diarrhea Antihistamines, Diphenhydramine-Type Headache Doxycycline Diarrhea Duloxetine Other - please document in the comment field Sleepiness Ketoprofen Dermatitis Latex Dermatitis Tape/Bandaid Adhesive Dermatitis documented in this encounter Plan of Treatment Upcoming Encounters Date Type Department Care Team (Late st Contact Info) Description 01/16/2025 11:20 AM EST Office Visit [address] [place] [address] Sergei Gan MD [address] [place] [phone] Scheduled Orders Name Type Priority Associated Diagnoses Orde r Schedule CBC W/O Differential Lab Routine Chronic diastolic heart failure ([facility]/HCC) Acute kidney injury (BETH) with acute tubular necrosis (ATN) ([facility]) Hyponatremia Expected: 11/19/2024 (Approximate), Expires: 04/23/2026 Urinalysis with reflex microscopic (Culture NOT Included) Lab Routine Chronic diastolic heart failure ([facility]/HCC) Acute kidney injury (BETH) with acute tubular necrosis (ATN) (CMS/HCC) Hyponatremia Expected: 11/19/2024 (Approximate), Expires: 04/23/2026 Vitamin D 25 Hydroxy Lab Routine Chronic diastolic heart failure (CMS/HCC) Acute kidney injury (BETH) with acute tubular necrosis (ATN) (CMS/HCC) Hyponatremia Expected: 11/19/2024 (Approximate), Expires: 04/23/2026 PTH Intact Total Lab Routine Chronic diastolic heart failure (CMS/HCC) Acute kidney injury (BETH) with acute tubular necrosis (ATN) (CMS/HCC) Hyponatremia Expected: 11/19/2024 (Approximate), Expires: 04/23/2026 Albumin-creatinine ratio, urine, random Lab Routine Chronic diastolic heart failure (CMS/HCC) Acute kidney injury (BETH) with acute tubular necrosis (ATN) (CMS/HCC) Hyponatremia Expected: 11/19/2024 (Approximate), Expires: 04/23/2026 Protein, Random, Urine with Creatinine Lab Routine Chronic diastolic heart failure (CMS/HCC) Acute kidney injury (BETH) with acute tubular necrosis (ATN) (CMS/HCC) Hyponatremia Expected: 11/19/2024 (Approximate), Expires: 04/23/2026 Renal Function Panel, Plasma Lab Routine Chronic diastolic heart failure (CMS/HCC) Acute kidney injury (BETH) with acute tubular necrosis (ATN) (CMS/HCC) Hyponatremia Expected: 11/19/2024 (Approximate), Expires: 04/23/2026 Osmolality, urine Lab Routine Hyponatremia Expected: 11/19/2024 (Approximate), Expires: 04/23/2026 Sodium, urine, random Lab Routine Hyponatremia Expected: 11/19/2024 (Approximate), Expires: 04/23/2026 Scheduled Referrals Name Type Priority Associated Diagnoses Order Schedule Follow Up Nephrology Outpatient Referral Routine Chronic diastolic heart failure (CMS/HCC) Acute kidney injury (BETH) with acute tubular necrosis (ATN) (CMS/HCC) Expected: 12/20/2024 (Approximate), Expires: 11/20/2025 documented as of this encounter Visit Diagnoses Diagnosis Chronic diastolic heart failure (CMS/HCC)- Primary Chronic diastolic heart failure Hypervolemia associated with renal insufficiency Other emphysema (CMS/HCC) Other emphysema Malignant neoplasm of female breast, unspecified estrogen receptor status, unspecified laterality, unspecified site of breast Acute kidney injury (BETH) with acute tubular necrosis (ATN) (CMS/HCC) Hyponatremia Hyposmolality and/or hyponatremia documented in this encounter Additional Health Concerns Assessment Noted Time PHQ-9 Depression Total Score: 4 10/21/19 25 11:23 AM EDT A fall risk assessment has been complete d for the patient 10/20/2024 11:27 AM EDT A Body Mass Index follow-up plan has been documented for the patient 10/21/2024 10:09 AM EDT documented as of this encounter Care Teams Brownell Operator Relationship Specialty Start Date End Date Nae Cortés APRN [address] [facility] [address] [place] [address] PCP - General 09/05/24 documented as of this encounter
--- OUTSIDE RECORDS SUMMARY | 2024-11-21 12:49 | XMS_ITS | Encounter Summary ---
Author Organization [employer] ([place], [place], [place], [place]) Address [address] [place] [address] Care Team Providers Care Control Analyst Name Role Phone Unavailable Primary Care Provider Unavailabl e Encounter Details Date Type Department Care Team (Late st Contact Info) Description 07/15/2018 Transcribed Document [facility] [place] [address] [place] [address] ProviderKristel MD [address] [place] [address] Social History Tobacco Use Types [...] NIRU AIKEN, PT - 07/16/2018 10:39 EDT M[facility] Goals Other PT LTG Grid Goal #1 [...] NIRU AIKEN PT - 07/16/2018 10:39 EDT Electronically signed by Tatiana Ponce Conversion Sales Representative [employer] at 06/29/2022 1:43 PM CDT documented in this encounter Plan of Treatment Not on file documented as of this encounter Visit Diagnoses Not on filedocumented in this encounter
--- OUTSIDE RECORDS SUMMARY | 2024-11-21 12:49 | XMS_ITS | Clinical Summary ---
Author Organization [employer] ([place], [place], [place], [place]) Address [address] [place] [address] Care Team Providers Care Glost Tile Shader Name Role Phone Unavailable Primary Care Provider [...] Date Bryson rded Speak language other than Martiniquais at home Not on file 03/30/2023 Want [...] or (1 - 1-dose 75+ series) 2021 Falls Risk Screening 03/12/2024 COVID-19 VACCINE (2024-2 6 season) 2024 05/19/2020, 04/21/2020 Influenza Vaccine (#1) 2024 2, 12/29/2019, 12/31/2018, Additional history exists DTAP/TDAP/TD VACCINES (3 - T d or Tdap) 06/03/2031 06/02/2021, 05/16/1996 Pneumococcal 50+ years Completed 12/04/2016, 2015
--- OUTSIDE RECORDS SUMMARY | 2024-11-21 12:49 | XMS_ITS | Encounter Summary ---
Author Organization [employer] ([place], [place], [place], [place]) Address [address] [place] [address] Care Team Providers Care Contract Technical Writer Name Role Phone Unavailable Primary Care Provider Unavailabl e Encounter Details Date Type Department Care Team (Late st Contact Info) Description 07/15/2018 Transcribed Document [facility] [place] Family Medicine [address] [place] [address] ProviderKristel MD [address] [place] [address] Social History Tobacco Use Types [...] : Right Right UE Active ROM : [facility] Right UE Strength : [facility] Left UE Active ROM : [facility] Left UE Strength : [facility] VERO TAMEZ, PT - 07/15/2018 12:39 EDT [...] VERO TAMEZ, PT - 07/15/2018 12:39 EDT Long-Term Goals Other PT LTG Grid Goal #1 [...] EDT Electronically signed by Tatiana Ponce Conversion Respiratory Therapy Technician Cerner at 06/29/2022 1:34 PM CDT documented in this encounter Plan of Treatment Not on file documented as of this encounter Visit Diagnoses Not on filedocumented in this encounter
--- OUTSIDE RECORDS SUMMARY | 2024-11-21 12:49 | XMS_ITS | Encounter Summary ---
Author Organization [employer] ([place], [place], [place], [place]) Address [address] [place] [address] Care Team Providers Care Granite Sandblaster Apprentice Name Role Phone Unavailable Primary Care Provider Unavailabl e Encounter Details Date Type Department Care Team (Late st Contact Info) Description 07/15/2018 Transcribed Document [facility] [place] [address] [place] [address] ProviderKristel MD [address] [place] [address] Social History Tobacco Use Types [...] Assist, minimal Toileting Device : Commode, bedside, [id number] commode Toilet Transfer Assist Level : Assist, [...] OSCAR FRANZ OTR/L - 07/15/2018 12:28 EDT Kettle Coordinator Goals, OT Other LTG Grid Goal #1 [...] - 07/15/2018 12:28 EDT Electronically signed by [facility], [facility] Conversion Tent Worker Cerner at 06/29/2022 1:44 PM CDT documented in this encounter Plan of Treatment Not on file documented as of this encounter Visit Diagnoses Not on filedocumented in this encounter
--- OUTSIDE RECORDS SUMMARY | 2024-11-21 12:49 | XMS_ITS | Encounter Summary ---
Author Organization [employer] ([place], [place], [place], [place]) Address [address] [place] [address] Care Team Providers Care Automatic Buffing Wheel Former Name Role Phone Unavailable Primary Care Provider Unavailabl e Encounter Details Date Type Department Care Team (Late st Contact Info) Description 07/15/2018 Transcribed Document [facility] [place] Medicine [facility] [place] [address] ProviderKristel MD [address] [place] [address] Social History Tobacco Use Types [...]
--- OUTSIDE RECORDS SUMMARY | 2024-11-21 12:50 | XMS_ITS | Encounter Summary ---
Author Organization [employer] ([place], [place], [place], [place]) Address [address] [place] [address] Care Team Providers Care Sanitarian Inspector Name Role Phone Unavailable Primary Care Provider Unavailmorris e Encounter Details Date Type Department Care Team (Late st Contact Info) Description 07/15/2018 Transcribed Document [facility] [place] Family Medicine [address] [place] [address] ProviderKristel MD [address] [place] [address] Social History Tobacco Use Types [...]
--- OUTSIDE RECORDS SUMMARY | 2024-11-21 12:50 | XMS_ITS | Encounter Summary ---
Author Organization [employer] ([place], [place], [place], [place]) Address [address] [place] [address] Care Team Providers Care Stock Plan Administrator Name Role Phone Unavailable Primary Care Provider Unavailabl e Encounter Details Date Type Department Care Team (Late st Contact Info) Description 07/15/2018 Transcribed Document [facility] [place] [address] [place] [address] ProviderKristel MD [address] [place] [address] Social History Tobacco Use Types [...] Obtained From : Patient Primary Language : Bahraini Preferred Communication Mode : Verbal Communication Barrier [...] Level : 46 or > High Risk [place] Fall Interventions : Adequate lighting, Bed in [...] : Refuses FDA approved medications Implant/Device Type, Hand Rug Cleaner and Model : left hip replacement, poss. [...] Source : Stated Height Entry Format : [place] Height, Feet : 5 ft(Converted to: 152 cm, 60 Inch) Height, Inches : 1 Inch(Converted to: 0 ft 1 Inch, 2.54 cm) Clinical Height : 154.94 cm Weight Source : Standing scale Weight Entry Format : [place] Clinical Dosing Weight : 63.18 kg Weight, Pounds : 139 lb Body Surface Area (BSA) : 1.62 m2 Body Mass Index : 26.3 kg/m2 (HI) [place] Body Weight : 47 kg Nilda Claros [...]
--- OUTSIDE RECORDS SUMMARY | 2024-11-21 12:50 | XMS_ITS | Encounter Summary ---
Author Organization [employer] ([place], [place], [place], [place]) Address [address] [place] [address] Care Team Providers Care Network Engineer Administrator Name Role Phone Unavailable Primary Care Provider Unavailabl e Encounter Details Date Type Department Care Team (Late st Contact Info) Description 07/15/2018 Transcribed Document [facility] [place] Family Medicine [address] [place] [address] ProviderKristel MD [address] [place] [address] Social History Tobacco Use Types [...] MD-ORT Finalized Date/Time: 07/15/18 12:30:00 Pt. Name: CIDNY LABOY /Sex: 1945 Female Med Rec #: [id number] Physician: DEREK DURAN MD-ORT Financial #: [id number] Pt. Type: I Room/Bed: 513/1 Admit/Disch: 07/15/18 04:51:00 - [place] [facility] [place] PreOp Case Times Entry 1 In Preop 07/15/18 05:40:00 Ready for Holding n/a Room Patient Ready for 07/15/18 07:12:00 Surgery Patient Out of Preop 07/15/18 07:25:00 Patient Out of n/a Holding Room Last Modified By: CHADWICK CHAN 07/15/18 12:29:59 SJE PreOp Case Times Audit 07/15/18 12:29:59 Environmental Restoration Planner: MAY Modifier: [email or web address] <+> 1 Patient Out of Preop Finalized By: CHADWICK CHAN Document Signatures Signed By: CHADWICK CHAN 07/15/18 12:30 documented in this encounter Plan of Treatment Not on file documented as of this encounter Visit Diagnoses Not on filedocumented in this encounter
--- OUTSIDE RECORDS SUMMARY | 2024-11-21 12:50 | XMS_ITS | Encounter Summary ---
Author Organization [employer] ([place], [place], [place], [place]) Address [address] [place] [address] Care Team Providers Care Manager Chinese Name Role Phone Unavailable Primary Care Provider Unavailabl e Encounter Details Date Type Department Care Team (Late st Contact Info) Description 07/22/2018 Transcribed Document [facility] [place] Family Medicine [address] [place] [address] ProviderKristel MD [address] [place] [address] Social History Tobacco Use Types [...] Policy Numbers : Insurance 1 Health Plan: [employer] PPO Policy Number: [id number] Authorization Number: [id number] Insurance Primary Name : [employer] Medicare Authorization Status-Primary : Notification only Reference Number-Primary : [id number] Authorization Number-Primary : [id number] Authorized Service Begin Date-Primary : 07/15/2018 EDT Authorization Comments-Primary : approved per availity for inpt Historical Authorization Comments-Primary : Comment 1: Uploaded clinicals to [employer] Medicare via [employer] by . (ERICK JONES RN-Utilization Review 07/15/2018 15:49) LYNN REID RN-Utilization Review - 07/22/2018 12:50 EDT Electronically signed by [facility] Conversion Revenue Stamp Cutter Cerner at 06/29/2022 1:34 PM CDT documented in this encounter Plan of Treatment Not on file documented as of this encounter Visit Diagnoses Not on filedocumented in this encounter
--- OUTSIDE RECORDS SUMMARY | 2024-11-21 12:50 | XMS_ITS | Encounter Summary ---
Author Organization [employer] ([place], [place], [place], [place]) Address [address] [place] [address] Care Team Providers Care Field Control Inspector Name Role Phone Unavailable Primary Care Provider Unavailabl e Encounter Details Date Type Department Care Team (Late st Contact Info) Description 07/19/2018 Transcribed Document [facility] [place] Family Medicine [address] [place] [address] ProviderKristel MD [address] [place] [address] Social History Tobacco Use Types [...]
--- OUTSIDE RECORDS SUMMARY | 2024-11-21 12:50 | XMS_ITS | Encounter Summary ---
Author Organization [facility] Address [address] [place] [address] Care Team Providers Care C++ Professor Name Role Phone Nae Cortés APRN Primary Care Provider [phone] Encounter Details Date Type Department Care Team (Late st Contact Info) Description 09/10/2024 Orders Only External Location [address] [place] [address] Roselia Washington APRN [address] [facility] [address] [facility] [address] [place] [address] Social History Tobacco Use Types Packs/Day Years [...] Description 01/16/2025 11:20 AM EST [facility] [address] [place] [id number] Sergei Gan MD [address] [place] [address] documented as of this encounter Procedures Procedure Name Priority Date/Time Associated Diagnosis Comments CT OUTSIDE IMAGES 09/10/2024 1:16 PM EDT documented in this encounter Results * CT OUTSIDE IMAGES (09/10/2024 1:16 PM EDT) Anatomical Region Laterality Modality Computed Tomogra phy 09/10/2024 1:16 PM EDT Roselia Washington SANITATION SUPERVISOR IMG CT PROCEDURES Arianna hurd Result documented in this encounter Visit Diagnoses Not on filedocumented in this encounter Care Teams C++ Professor Relationship Specialty Start Date End Date Nae Cortés, SANITATION SUPERVISOR [address] [place] [address] PCP - General 09/05/24 documented as of this encounter
--- OUTSIDE RECORDS SUMMARY | 2024-11-21 12:50 | XMS_ITS | Encounter Summary ---
Author Organization [employer] ([place], [place], [place], [place]) Address [address] [place] [address] Care Team Providers Care Librarian Helper Name Role Phone Unavailable Primary Care Provider Unavailabl e Encounter Details Date Type Department Care Team (Late st Contact Info) Description 07/15/2018 Transcribed Document [facility] [place] Family Medicine [address] [place] [address] ProviderKristel MD [address] [place] [address] Social History Tobacco Use Types [...] Source : Stated Height Entry Format : [place] Height, Feet : 5 ft(Converted to: 152 cm, 60 Inch) Height, Inches : 1 Inch(Converted to: 0 ft 1 Inch, 2.54 cm) Clinical Height : 154.94 cm Weight Source : Standing scale Weight Entry Format : [place] Clinical Dosing Weight : 63.18 kg Weight, Pounds : 139 lb Body Surface Area (BSA) : 1.62 m2 Body Mass Index : 26.3 kg/m2 (HI) [place] Body Weight : 47 kg Nicole Coley Rn - 07/15/2018 6:34 EDT Health Histories Smoking Status : 10 or more cigarettes (1/2 pack or more)/day in last 30 days Smokeless Tobacco Status : Never Desires Tobacco Cessation Medication : No Reason for No Tobacco Cessation Medication : Refuses FDA approved medications Implant/Device Type, Petroleum Refinery Worker and Model : left hip replacement, [...] Obtained From : Patient Primary Language : Ivorian Preferred Communication Mode : Verbal Communication Barrier [...] Scale Risk Level : 25-45 Medium Risk [place] Fall Interventions : Adequate lighting, Bed in [...] the text rendition version of the form. [place] Coma [place] Best Motor Response : Obey commands [place] Best Verbal Response : Oriented Maggi Eye Opening Response : Spontaneous [place] Coma Score : 15 Nicole Coley Rn - 07/15/2018 6:34 EDT documented in this encounter Plan of Treatment Not on file documented as of this encounter Visit Diagnoses Not on filedocumented in this encounter
--- OUTSIDE RECORDS SUMMARY | 2024-11-21 12:50 | XMS_ITS | Encounter Summary ---
Author Organization [employer] ([place], [place], [place], [place]) Address [address] [place] [address] Care Team Providers Care Music Publicist Name Role Phone Unavailable Primary Care Provider Unavailabl e Encounter Details Date Type Department Care Team (Late st Contact Info) Description 07/15/2018 Transcribed Document [facility] [place] [address] [place] [address] ProviderKristel MD [address] [place] [address] Social History Tobacco Use Types [...] home DANA PALMA OTR/L 07/16/2018 10:58 EDT Crime Scene Analyst Goals, OT Other LTG Grid Goal [...]
--- OUTSIDE RECORDS SUMMARY | 2024-11-21 12:50 | XMS_ITS | Encounter Summary ---
Author Organization [employer] ([place], [place], [place], [place]) Address [address] [place] [address] Care Team Providers Care Remote Sensing Analyst Name Role Phone Unavailable Primary Care Provider Unavailabl e Encounter Details Date Type Department Care Team (Late st Contact Info) Description 07/16/2018 Transcribed Document [facility] [place] [address] ProviderKristel MD [address] [place] [address] Social History Tobacco Use Types [...]
--- OUTSIDE RECORDS SUMMARY | 2024-11-21 12:50 | XMS_ITS | Encounter Summary ---
Author Organization [employer] ([place], [place], [place], [place]) Address [address] [place] [address] Care Team Providers Care Devops Name Role Phone Unavailable Primary Care Provider Unavailabl e Encounter Details Date Type Department Care Team (Late st Contact Info) Description 07/15/2018 Transcribed Document [facility] [place] Family Medicine [address] [place] [address] ProviderKristel MD [address] [place] [address] Social History Tobacco Use Types [...] LABOY /Sex: 1945 Female Med Rec #: [id number] Physician: DEREK DURAN MD-ORT Financial #: [id number] Pt. Type: I Room/Bed: / Admit/Disch: 07/15/18 04:51:00 - [place] [facility] [place] IntraOp Case Attendance Entry 1 Entry 2 Entry 3 Case Attendee Ney Ann ST Austin, Martha Wells RN Role Performed Scrub, Second Scrub, First Smoking Pipe Coater, First Time In 07/15/18 07:28:00 07/15/18 07:28:00 [...] Brown, Frankie Brooks, Aysha Guerra MD-ORT Tech Lab Scientist Role Performed Surgeon/Proceduralist, Assistive Personnel Gem Technician First Time In 07/15/18 07:59:00 07/15/18 07:28:00 [...] Case Attendee CLARITZA VEGAS CSA LUNSFORD, JAMES, SOAP DRIER OPERATOR MAHAMED BE, PAC Role Performed Project Eng, First SOAP DRIER OPERATOR/Nurse Actuarial Clerk Physician cable splicer assistant Time In 07/15/18 07:28:00 07/15/18 07:28:00 [...] SJE IntraOp Case Attendance Audit 07/15/18 09:35:34 Machine Pecan Gatherer: KARLOS Modifier: KARLOS 8 <+> Time Out 8 <*> Procedure Hip Total Anterior Approach 9 <+> Time Out 9 <*> Procedure Hip Total Anterior Approach 10 <+> Time Out 10 <*> Procedure Hip Total Anterior Approach 07/15/18 09:35:33 Machine Pecan Gatherer: KARLOS Modifier: KARLOS 1 <+> Time Out [...] Procedure Hip Total Anterior Approach 07/15/18 08:26:33 Machine Pecan Gatherer: KARLOS Modifier: KARLOS 7 <+> Time Out 7 <*> Procedure Hip Total Anterior Approach 9 <*> Time In 07/15/18 07:28:00 9 <*> Procedure Hip Total Anterior Approach 07/15/18 08:01:40 Machine Pecan Gatherer: KARLOS Modifier: KARLOS 1 <*> Case Attendee DEREK DURAN MD-ORKevin 1 <*> Role Performed Surgeon/Proceduralist, First 1 <*> Time In 07/15/18 07:28:00 1 <*> Procedure Hip Total Anterior Approach 2 <*> Case Attendee Martha Torrez, RN 2 <*> Role Performed Smoking Pipe Coater, First 2 <*> Time In 07/15/18 07:28:00 [...] Approach 5 <*> Case Attendee Deedee Brown, Entry Driver Operator 5 <*> Role Performed Assistive Personnel 5 <*> Time In 07/15/18 07:28:00 5 <*> Procedure Hip Total Anterior Approach 6 <*> Case Attendee CLARITZA VEGAS, CSA 6 <*> Role Performed Project Eng, First 6 <*> Time In 07/15/18 07:28:00 6 <*> Procedure Hip Total Anterior Approach 7 <*> Case Attendee MAHAMED BE, MIGUELINA 7 <*> Role Performed Physician cable splicer assistant 7 <*> Time In 07/15/18 07:28:00 7 <*> Procedure Hip Total Anterior Approach 8 <*> Case Attendee OTHER, ATTENDEE 8 <*> Role Performed Vendor 8 <*> Time In 07/15/18 07:28:00 8 <*> Procedure Hip Total Anterior Approach 8 <-> Other Attendee JER DIXON 9 <*> Case Attendee Aysha Brooks, Lab Scientist 9 <*> Role Performed Gem Technician 9 <*> Time In 07/15/18 07:28:00 9 <*> Procedure Hip Total Anterior Approach 10 <*> Case Attendee CELSO QUISPE CRNA 10 <*> Role Performed SOAP DRIER OPERATOR/Nurse Actuarial Clerk 10 <+> Time In 10 <*> Procedure Hip Total Anterior Approach 10 <+> Other Attendee 07/15/18 07:52:23 Machine Pecan Gatherer: KARLOS Modifier: KARLOS 1 <+> Time In [...] Stop Time 07/15/18 09:08:00 Last Modified By: Mratha Torrez RN 07/15/18 09:35:17 [facility] IntraOp Case Times Audit 07/15/18 09:35:17 Machine Pecan Gatherer: KARLOS Modifier: JORDYNBLAND <+> 1 Out Room Time <+> 1 Stop Time 07/15/18 09:08:56 Machine Pecan Gatherer: KARLOS Modifier: JORDYNBLAND <+> 1 Stop Time 07/15/18 08:01:26 Machine Pecan Gatherer: MARTHABLAND Modifier: JORDYNBLAND <+> 1 Start Time [...] SJE IntraOp Counts Verification Audit 07/15/18 08:50:53 Machine Pecan Gatherer: KARLOS Modifier: SALENAAND <+> 2 Procedure <+> [...] RN 07/15/18 07:07:36 [facility] IntraOp General Case Agricultural Equipment Operator 1 Case Information OR OR 01 E Case Level 1 Room Verified Yes Wound Class I - Clean Specialty SN Orthopedic Anesthesia Type General ASA Class 4 Diagnosis Preop Diagnosis DJD RIGHT HIP Postop Same As Preop No Postop Diagnosis DICTATED BY MD Last Modified By: Martha Torrez RN 07/15/18 07:53:11 [facility] IntraOp General Case Data Audit 07/15/18 07:53:11 Machine Pecan Gatherer: KARLOS Modifier: KAROLS <+> 1 ASA Class <+> 1 Preop Diagnosis [facility] IntraOp Implant Log Entry 1 Entry 2 Entry 3 Type Implant (Synthetic) Implant (Synthetic) Implant (Synthetic) Implant Log Implant Type Hardware Hardware Hardware Tissue Implant Type Implant SHELL ACET LOGICAL 48MM LNER LGCL CP 50MM STEM HIP COXA CLLR Identification -[id number] ORIGIN [id number] Description Implant Quantity 1 1 1 Implant Site RIGHT HIP RIGHT HIP RIGHT HIP Implant Identification Model Number Implant Identification Serial Number Implant [id number] Identification Lot Number Implant Paxeon Reconstruction Paxeon Reconstruction Paxeon Reconstruction Identification Welder Apprentice Arc Name: Implant [id number] Identification Catalog Number Implant Size Implant Has an Yes Yes Yes Expiration Date Implant Expiration 06/10/23 02/08/23 04/11/23 Date Wasted Radioactive Material Time Implanted Tissue Implant Continue for Tissue Implant Documentation Tissue Identification Number Graft Prep Per Welder Apprentice Arc Instructions: Tissue Preparation Method: Reconstitution Solution: Reconstitution Solution Lot Number Reconstitution Solution Expiration Date: Thawing Solution Thawing Solution Lot Number Thawing Solution Expiration Date Preparation Materials, Other Preparation Materials, Other Lot Number Preparation Materials, Other Expiration Date Tissue Prepared/Processed By Welder Apprentice Arc Paperwork Completed Implant Type Comment Last Modified By: Martha Torrez RN Bland, Jordyn A, RN Bland, Jordyn A, RN 07/15/18 08:26:09 07/15/18 08:26:09 07/15/18 08:47:20 Entry 4 Type Implant (Synthetic) Implant Log Implant Type Hardware Tissue Implant Type Implant HEAD FEM CERC [id number] 32MM Identification -[id number] Description Implant Quantity 1 Implant Site RIGHT HIP Implant Identification Model Number Implant Identification Serial Number Implant [id number] Identification Lot Number Implant Paxeon Reconstruction Identification Welder Apprentice Arc Name: Implant [id number] Identification Catalog Number Implant Size Implant Has an Yes Expiration Date Implant Expiration 04/11/23 Date Wasted Radioactive Material Time Implanted Tissue Implant Continue for Tissue Implant Documentation Tissue Identification Number Graft Prep Per Welder Apprentice Arc Instructions: Tissue Preparation Method: Reconstitution Solution: Reconstitution Solution Lot Number Reconstitution Solution Expiration Date: Thawing Solution Thawing Solution Lot Number Thawing Solution Expiration Date Preparation Materials, Other Preparation Materials, Other Lot Number Preparation Materials, Other Expiration Date Tissue Prepared/Processed By Welder Apprentice Arc Paperwork Completed Implant Type Comment Last Modified By: Martha Torrez RN 07/15/18 08:47:20 [facility] IntraOp Implant Log Audit 07/15/18 08:47:20 Machine Pecan Gatherer: KARLOS Modifier: KARLOS <+> 3 Implant Identification Description <+> 3 Implant Identification Lot Number <+> 3 Implant Identification Welder Apprentice Arc Name: <+> 3 Implant Expiration Date <+> 3 Implant Identification Catalog Number <+> 4 Implant Identification Description <+> 4 Implant Identification Lot Number <+> 4 Implant Identification Welder Apprentice Arc Name: <+> 4 Implant Expiration Date <+> 4 Implant Identification Catalog Number 07/15/18 08:26:09 Machine Pecan Gatherer: KARLOS Modifier: KARLOS <+> 1 Implant Identification Description <+> 1 Implant Identification Lot Number <+> 1 Implant Identification Welder Apprentice Arc Name: <+> 1 Implant Expiration Date <+> 1 Implant Identification Catalog Number <+> 2 Implant Identification Description <+> 2 Implant Identification Lot Number <+> 2 Implant Identification Welder Apprentice Arc Name: <+> 2 Implant Expiration Date <+> 2 Implant Identification Catalog Number 07/15/18 07:54:53 Machine Pecan Gatherer: KARLOS Modifier: KARLOS <+> 3 Implant Site [...] vancomycin 1Gm vial - ANESTHETIC 1000MG/10 ML [id number] COCKTAIL-ROGER [id number] Combo Med List Time Administered Route of [...] Intra Op Sign Out Audit 07/15/18 09:35:26 Machine Pecan Gatherer: KARLOS Modifier: KARLOS <+> 1 RN Sign [...] S[facility] IntraOp Surgical Procedures Audit 07/15/18 09:08:57 Machine Pecan Gatherer: KARLOS Modifier: KARLOS <+> 1 Start <+> [...] S[facility] IntraOp Time Out Audit 07/15/18 08:01:30 Machine Pecan Gatherer: KARLOS Modifier: KARLOS 1 <+> Time Out Pause Time 1 <*> Procedure to be Performed Hip Total Anterior Approach 07/15/18 07:56:31 Machine Pecan Gatherer: KARLOS Modifier: KARLOS 1 <+> Beta Pat Administered 1 <*> Procedure to be Performed Hip Total Anterior Approach [facility] IntraOp X-Ray and Images Entry 1 X-Ray/Imaging Type Fluoroscopy Fluoroscopy Type C-Arm Site RIGHT HIP Highway Commissioner Name Aysha Brooks, Lab Scientist Protective Devices Yes Used Last Modified By: Martha Torrez RN 07/15/18 07:56:43 Case Comments <None> Finalized By: Martha Torrez, RN Document Signatures Signed By: Martha Torrez RN 07/15/18 09:37 documented in this encounter Plan of Treatment Not on file documented as of this encounter Visit Diagnoses Not on filedocumented in this encounter
--- OUTSIDE RECORDS SUMMARY | 2024-11-21 12:50 | XMS_ITS | Encounter Summary ---
Author Organization [employer] ([place], [place], [place], [place]) Address [address] [place] [address] Care Team Providers Care Student Admissions Clerk Name Role Phone Unavailable Primary Care Provider Unavailabl e Encounter Details Date Type Department Care Team (Late st Contact Info) Description 07/15/2018 Transcribed Document [facility] [place] [address] [place] [address] ProviderKristel MD [address] [place] [address] Social History Tobacco Use Types [...] Policy Numbers : Insurance 1 Health Plan: [employer] PPO Policy Number: [id number] Authorization Number: [id number] Insurance Primary Name : [employer] Medicare Authorization Status-Primary : Awaiting callback Authorization Number-Primary : [id number] Authorized Service Begin Date-Primary : 07/15/2018 EDT [...]
--- OUTSIDE RECORDS SUMMARY | 2024-11-21 12:50 | XMS_ITS | Encounter Summary ---
Author Organization [employer] ([place], [place], [place], [place]) Address [address] [place] [address] Care Team Providers Care Mandarin Chinese Teacher Name Role Phone Unavailable Primary Care Provider Grady peres Encounter Details Date Type Department Care Team (Late st Contact Info) Description 07/15/2018 Transcribed Document [facility] [place] [address] [place] [address] ProviderKristel MD [address] [place] [address] Social History Tobacco Use Types [...]
--- OUTSIDE RECORDS SUMMARY | 2024-11-21 12:50 | XMS_ITS | Encounter Summary ---
Author Organization [facility] Address [address] [place] [address] Care Team Providers Care Systems Applications Programming Lead Name Role Phone Nae Cortés TRAM Primary Care Provider +1- [phone] Encounter Details Date Type Department Care Team ([facility] Contact Info) Description 10/17/2024 Telephone [facility] [address], [address] [place] [address] Osmany Martines [facility] [address] [place] [address] Social History Tobacco Use Types Packs/Day Years [...] encounter Miscellaneous Notes * Telephone Encounter - Osmany Martines - 10/17/2024 9:57 AM EDT Confirmed appointment and sent mychart link to [facility] to set Mychart up for telehealth visit [facility] documented in this encounter Plan of Treatment Upcoming Encounters Date Type Department Care Team (Late st Contact Info) Description 01/16/2025 11:20 AM EST Office Visit [facility] [address] [facility] [address], [place] [address] Sergei Gan MD [address] [place] [phone] documented as of this encounter Visit Diagnoses Not on filedocumented in this encounter Additional Health Concerns Assessment Noted Time A fall risk assessment has been complete d for the patient 10/17/2024 11:43 AM EDT A Body Mass Index follow-up plan has been documented for the patient 10/17/2024 6:46 PM EDT documented as of this encounter Care Teams Systems Applications Programming Lead Relationship Specialty Start Date End Date Nae Cortés APRN [address] [place], [place] [id number] PCP - General 09/05/24 documented as of this encounter
--- OUTSIDE RECORDS SUMMARY | 2024-11-21 12:50 | XMS_ITS | Encounter Summary ---
Author Organization [employer] ([place], [place], [place], [place]) Address [address] [place] [address] Care Team Providers Care Optical Fabrication Technician Name Role Phone Unavailable Primary Care Provider Unavailabl e Encounter Details Date Type Department Care Team (Late st Contact Info) Description 07/15/2018 Transcribed Document [facility] [place] Family Medicine [address] [place] [address] ProviderKristel MD [address] [place] [address] Social History Tobacco Use Types [...] Kristel ProviderMD - 07/15/2018 8:01 AM CDT [facility] [place] Summary Primary Physician: DEREK DURAN MD-ORKevin Finalized Date/Time: 07/15/18 10:28:25 Pt. Name: EDSON LABOY /Sex: 1945 Female Med Rec #: [id number] Physician: DEREK DURAN MD-ORT Financial #: [id number] Pt. Type: I Room/Bed: 3/ Admit/Disch: 07/15/18 04:51:00 - Institution: [facility] OR PACU Case Times Entry 1 In PACU I 07/15/18 09:21:00 Ready for PACU 07/15/18 09:51:00 Discharge Discharge from PACU 07/15/18 10:10:00 I Last Modified By: Nikki Wang RN 07/15/18 10:27:52 [facility] Main OR PACU Case Times Audit 07/15/18 10:27:52 Filling Separator: HELFEP Modifier: HELFEP <+> 1 Ready for PACU Discharge <+> 1 Discharge from PACU I [facility] Main OR PACU Acuity Entry 1 Start Time 07/15/18 09:51:00 Stop Time 07/15/18 10:10:00 Acuity Level [facility] PACU Acuity I Last Modified By: Nikki Wang RN 07/15/18 10:28:21 Finalized By: Nikki Wang RN Document Signatures Signed By: Nikki Wang RN 07/15/18 10:28 Electronically signed by Rosario [facility] Conversion Bus Attendant Cerner at 06/29/2022 1:40 PM CDT documented in this encounter Plan of Treatment Not on file documented as of this encounter Visit Diagnoses Not on filedocumented in this encounter
--- OUTSIDE RECORDS SUMMARY | 2024-11-21 12:50 | XMS_ITS | Encounter Summary ---
Author Organization [facility] Address [address] [place] [address] Care Team Providers Care Business Applications Developer Name Role Phone Nae Cortés NEWS BROADCASTER Primary Care Provider +1- [phone] Encounter Details Date Type Department Care Team (Latest Contact Info) Description 10/17/2024 Travel Social History Tobacco Use Types Packs/Day Years [...] on file documented as of this encounter Functional Status * AUDIT-C Score [...] occasion? Never 10/17/2024 11:29 AM EDT Saúl Herrera documented as of this encounter Plan of Treatment Upcoming Encounters Date Type Department Care Team (Late st Contact Info) Description 01/16/2025 11:20 AM EST Office Visit [facility] [address] [facility] [address] [place] [address] Sergei Gan MD [address] [place] [address] documented as of this encounter Visit Diagnoses Not on filedocumented in this encounter Additional Health Concerns Assessment Noted Time A fall risk assessment has been complete d for the patient 10/17/2024 11:43 AM EDT A Body Mass Index follow-up plan has been documented for the patient 10/17/2024 6:46 PM EDT documented as of this encounter Care Teams Business Applications Developer Relationship Specialty Start Date End Date Nae Cortés APRN [address] [place], [place] [id number] PCP - General 09/05/24 documented as of this encounter
--- OUTSIDE RECORDS SUMMARY | 2024-11-21 12:50 | XMS_ITS | Encounter Summary ---
Author Organization [employer] ([place], [place], [place], [place]) Address [address] [place] [address] Care Team Providers Care Rotoprinter Name Role Phone Unavailable Primary Care Provider Unavailabl e Encounter Details Date Type Department Care Team (Late st Contact Info) Description 07/15/2018 Transcribed Document [facility] [place] [address] [place] [address] ProviderKristel MD [address] [place] [address] Social History Tobacco Use Types [...] Electronically signed by Tatiana Ponce Conversion Substation Design Draftsperson Cerner at 06/29/2022 1:35 PM CDT documented in this encounter Plan of Treatment Not on file documented as of this encounter Visit Diagnoses Not on filedocumented in this encounter
--- OUTSIDE RECORDS SUMMARY | 2024-11-21 12:50 | XMS_ITS | Referral Summary ---
Author Organization [employer] ([place], [place], [place], [place]) Address [address] [place] [address] Care Team Providers Care Chronic Manager Name Role Phone Unavailable Primary Care [...] Date Bryson rded Speak language other than Estonian at home Not on file 03/30/2023 Want [...]
--- OUTSIDE RECORDS SUMMARY | 2024-11-21 12:51 | XMS_ITS | Encounter Summary ---
Author Organization [employer] ([place], [place], [place], [place]) Address [address] [place] [address] Care Team Providers Care Printed Forms Proofreader Name Role Phone Unavailable Primary Care Provider Grady peres Encounter Details Date Type Department Care Team (Late st Contact Info) Description 07/16/2018 Transcribed Document [facility] [address] [place] [address] ProviderKristel MD [address] [place] [address] Social History Tobacco Use Types [...]
--- OUTSIDE RECORDS SUMMARY | 2024-11-21 12:51 | XMS_ITS | Encounter Summary ---
Author Organization [employer] ([place], [place], [place], [place]) Address [address] [place] [address] Care Team Providers Care Hall Monitor Name Role Phone Unavailable Primary Care Provider Unavailabl e Encounter Details Date Type Department Care Team (Late st Contact Info) Description 07/16/2018 Transcribed Document [facility] [place] [address] [place] [address] ProviderKristel MD [address] [place] [address] Social History Tobacco Use Types [...] 07/16/2018 9:54 EDT by NAYA MINOR Care Management-Accounting File Clerk Care Management Progress Note Discharge Arrangements : [...] Acute Providers : Yes MILY, NAYA, Care Management-Accounting File Clerk - 07/16/2018 9:54 EDT Electronically signed by Rosario, [facility] Conversion Practice Specialist Cerner at 06/29/2022 1:33 PM CDT documented in this encounter Plan of Treatment Not on file documented as of this encounter Visit Diagnoses Not on filedocumented in this encounter
--- OUTSIDE RECORDS SUMMARY | 2024-11-21 12:51 | XMS_ITS | Encounter Summary ---
Author Organization [facility] Address [address] [place] [address] Care Team Providers Care Heel Turner Name Role Phone Nae Cortés TRAM Primary Care Provider +1- [phone] Encounter Details Date Type Department Care Team (Late st Contact Info) Description 10/10/2024 Telephone [facility] [place] [facility] [address] [place] [address] [place] [address] Social History Tobacco Use Types Packs/Day Years [...] explained parking and location of clinic in [facility] * Telephone Encounter - Sweta Jones - 10/10/2024 2:03 PM EDT Patient Name: Cindy Braxton :1945 Date:10/10/2024 Affiliate site: [place] Referring Physician: [place] Education/ Information provided: This Nurse Liaison left voicemail for Cindy Braxton prior to an appointment on 10/17/2024. Provided patient with liaison contact information and encouraged patient to call with any questions, concerns or assistance needs. Will follow up with patient after appointment. Sweta Jones [facility] Nurse Liaison [phone] documented in this encounter Plan of Treatment Upcoming Encounters Date Type Department Care Team (Late st Contact Info) Description 01/16/2025 11:20 AM EST Office Visit [facility] [address] [facility] [address], [place] [address] Sergei Gan MD [address] [place] [phone] documented as of this encounter Visit Diagnoses Not on filedocumented in this encounter Care Teams Heel Turner Relationship Specialty Start Date End Date Nae Cortés APRN [address] [facility] [address] [place], [place] [id number] PCP - General 09/05/24 documented as of this encounter
--- OUTSIDE RECORDS SUMMARY | 2024-11-21 12:51 | XMS_ITS | Encounter Summary ---
Author Organization [employer] ([place], [place], [place], [place]) Address [address] [place] [address] Care Team Providers Care Digital Pre Press Operator Name Role Phone Unavailable Primary Care Provider Unavailabl e Encounter Details Date Type Department Care Team (Late st Contact Info) Description 07/16/2018 Transcribed Document [facility] [place] Family Medicine [address] [place] [address] ProviderKristel MD [address] [place] [address] Social History Tobacco Use Types [...]
--- OUTSIDE RECORDS SUMMARY | 2024-11-21 12:51 | XMS_ITS | Encounter Summary ---
Author Organization [employer] ([place], [place], [place], [place]) Address [address] [place] [address] Care Team Providers Care Bariatric Nurse Name Role Phone Unavailable Primary Care Provider Unavailmorris e Encounter Details Date Type Department Care Team (Late st Contact Info) Description 07/16/2018 Transcribed Document [facility] [place] [address] [place] [address] ProviderKristel MD [address] [place] [address] Social History Tobacco Use Types [...] Historical ProviderMD - 07/16/2018 2:00 AM CDT Pantographer Details Entered On: 07/16/2018 2:49 EDT Performed [...]
--- OUTSIDE RECORDS SUMMARY | 2024-11-21 12:51 | XMS_ITS | Encounter Summary ---
Author Organization [employer] ([place], [place], [place], [place]) Address [address] [place] [address] Care Team Providers Care Respiratory Director Name Role Phone Unavailable Primary Care Provider Unavailabl e Encounter Details Date Type Department Care Team (Late st Contact Info) Description 07/16/2018 Transcribed Document [facility] [place] [address] [place] [address] ProviderKristel MD [address] [place] [address] Social History Tobacco Use Types [...] On: 07/16/2018 9:10 EDT by Meche Oshea solution designer Documentation Patient Disposition, General : Discharge Discharge [...] 07/16/2018 9:10 EDT Electronically signed by Rosario [facility] Conversion Documentation Designer Cerner at 06/29/2022 1:27 PM CDT documented in this encounter Plan of Treatment Not on file documented as of this encounter Visit Diagnoses Not on filedocumented in this encounter
--- OUTSIDE RECORDS SUMMARY | 2024-11-21 12:51 | XMS_ITS | Encounter Summary ---
Author Organization [employer] ([place], [place], [place], [place]) Address [address] [place] [address] Care Team Providers Care Premium Note Interest Calculator Clerk Name Role Phone Unavailable Primary Care Provider Unavailabl e Encounter Details Date Type Department Care Team (Late st Contact Info) Description 06/28/2018 Transcribed Document [facility] [place] Medicine [facility] [address] ProviderKristel MD [facility] [place] [address] Social History Tobacco Use Types [...] Hip Pain Primary Care Provider RANDAL ALBARADO ([facility] History of Present Illness This patient [...]
--- OUTSIDE RECORDS SUMMARY | 2024-11-21 12:51 | XMS_ITS | Encounter Summary ---
Author Organization [facility] Address [address] [place] [address] Care Team Providers Care Offset Lithographic Press Setter Name Role Phone Nae Cortés JEWEL INSERTER Primary Care Provider +1- [phone] Encounter Details Date Type Department Care Team (Late st Contact Info) Description 12/06/2023 Orders Only External Location [address] [place] [address] Provider, External Social History Tobacco Use Types [...] Description 01/16/2025 11:20 AM EST Office Visit [facility] [address] [place] [phone] Sergei Gan MD [address] [place] [address] documented as of this encounter Procedures Procedure Name Priority Date/Time Associated Diagnosis Comments IR OUTSIDE IMAGES 12/06/2023 1:21 PM EDT documented in this encounter Results * IR OUTSIDE IMAGES (12/06/2023 1:21 PM EDT) Anatomical Region Laterality Modality X-Ray Angiograph y 12/06/2023 1:21 PM EDT us External Provider IMG IR PROCEDURES Final Result documented in this encounter Visit Diagnoses Not on filedocumented in this encounter Care Teams Offset Lithographic Press Setter Relationship Specialty Start Date End Date Nae Cortés APRN [address] [place] [address] PCP - General 09/05/24 documented as of this encounter
--- OUTSIDE RECORDS SUMMARY | 2024-11-21 12:51 | XMS_ITS | Encounter Summary ---
Author Organization [employer] ([place], [place], [place], [place]) Address [address] [place] [address] Care Team Providers Care Manager Learning Name Role Phone Unavailable Primary Care Provider Unavailabl e Encounter Details Date Type Department Care Team (Late st Contact Info) Description 07/16/2018 Transcribed Document [facility] [place] Family Medicine [address] [place] [address] ProviderKristel MD [address] [place] [address] Social History Tobacco Use Types [...] 07/16/2018 9:54 EDT by NAYA MINOR Care Management-Railroad Track Mechanic Final Discharge Planning Discharge Arrangements : Patient Post-Acute Information Patient Name: CINDY BRAXTON Gender: Female : [birth year] Age: 73 Years No Post-Acute Placement(s) Listed No Post-Acute Service(s) Listed No [place] Referral(s) Listed NAYA MINOR, Care Management-Railroad Track Mechanic - 07/16/2018 9:54 EDT Accts Placement Outside [facility] Account #1 Service : [facility] Organization : PHYSICAL THERAPY NAYA MINOR Care Management-Railroad Track Mechanic - 07/16/2018 9:54 EDT Discharge To Care Management : Home Health Services (Related/SOC within 3 days)-06 NAYA MINOR Care Management-Railroad Track Mechanic - 07/16/2018 9:54 EDT Electronically signed by Rosario [facility] Conversion Tan Room Supervisor Cerner at 06/29/2022 1:31 PM CDT documented in this encounter Plan of Treatment Not on file documented as of this encounter Visit Diagnoses Not on filedocumented in this encounter
--- OUTSIDE RECORDS SUMMARY | 2024-11-21 12:51 | XMS_ITS | Encounter Summary ---
Author Organization [facility] Address [address] [place] [address] Care Team Providers Care Data Warehousing Manager Name Role Phone Nae Cortés APRN Primary Care Provider +1- [phone] Reason for Referral * Consultation (Routine) - Closed Specialty Diagnoses / Procedures Referred By Radha santacruz Referred To Contact Nephrology Diagnoses Elevated BUN Elevated creatine kinase Nae Cortés APRN [address] [address] Phone: tel: fax: [address] [address] Phone: tel: fax: Referral ID Status Reason Start Date Expiration Date V isits Requested Visits Authorized [id number] Closed Specialty Services Required 08/27/2024 02/26/2026 1 1 Encounter Details Date Type Department Care Team (Late st Contact Info) Description 08/27/2024 [facility] [address] [place] [address] Nae Cortés APRN [address] [address] Elevated BUN (Primary Dx); Elevated [...] 01/16/2025 11:20 AM EST Office Visit [facility] [address] [facility] [address], [place] [address] Sergei Gan MD [address] [place] [phone] Scheduled Referrals Name Type Priority Associated Diagnoses Order Schedule Ambulatory referral to Nephrology Outpatient Referral Routine Elevated BUN Elevated creatine kinase Expected: 08/27/2024 (Approximate), Expires: 02/28/2026 documented as of this encounter Visit Diagnoses Diagnosis Elevated BUN- Primary Other abnormal blood chemistry Elevated creatine kinase Other nonspecific abnormal serum enzyme levels documented in this encounter Care Teams Data Warehousing Manager Relationship Specialty Start Date End Date Nae Cortés APRN [address] [address] PCP - General 09/05/24 documented as of this encounter
--- OUTSIDE RECORDS SUMMARY | 2024-11-21 12:51 | XMS_ITS | Encounter Summary ---
Author Organization [employer] ([place], [place], [place], [place]) Address [address] [place] [address] Care Team Providers Care College Archivist Name Role Phone Unavailable Primary Care Provider Unavailabl e Encounter Details Date Type Department Care Team (Late st Contact Info) Description 06/28/2018 Transcribed Document [facility] [address] [place] [address] ProviderKristel MD [address] [place] [address] Social History Tobacco Use [...]
--- OUTSIDE RECORDS SUMMARY | 2024-11-21 12:51 | XMS_ITS | Encounter Summary ---
Author Organization [employer] ([place], [place], [place], [place]) Address [address] [place] [address] Care Team Providers Care Asphalt Mixer Name Role Phone Unavailable Primary Care Provider Unavailabl e Encounter Details Date Type Department Care Team (Late st Contact Info) Description 07/15/2018 Transcribed Document [facility] Radiology [address] [place] [address] [place] [address] [place] [address] [address] Social History Tobacco Use Types [...] None. Primary Care Provider RANDAL ALBARADO ([place] [facility] Chief Complaint Right hip pain History [...] Medical SVT (supraventricular tachycardia) / SNOMED CT 26044563 / Confirmed Hypertension / SNOMED CT 5700082216 / Confirmed Hypothyroidism / SNOMED CT 20800784 / Confirmed Anxiety disorder / SNOMED CT 778602096 / Confirmed COPD (chronic obstructive pulmonary disease) / SNOMED CT 43251718 / Confirmed Osteoarthritis / SNOMED CT 5650169501 / Confirmed Hyperlipidemia / SNOMED CT 25478103 / Confirmed At risk for sleep apnea / IMO [id number] / Confirmed, Active Problems (8) Anxiety disorder At risk for sleep apnea COPD (chronic obstructive pulmonary disease) Hyperlipidemia Hypertension Hypothyroidism Osteoarthritis SVT (supraventricular tachycardia) Histories Past Medical History: Active Problems (8) Anxiety disorder At risk for sleep apnea COPD (chronic obstructive pulmonary disease) Hyperlipidemia Hypertension Hypothyroidism Osteoarthritis SVT (supraventricular tachycardia) Family History: Significant for cancer Procedure history: Thyroidectomy (55478638). Tonsillectomy (545124480). Cholecystectomy (91610556). Tubal ligation (349974088). - Spontaneous vaginal delivery. left hip replacment. [...]
--- OUTSIDE RECORDS SUMMARY | 2024-11-21 12:51 | XMS_ITS | Encounter Summary ---
Author Organization [facility] ([place], [place], [place], [place]) Address [address] [place] [address] Care Team Providers Care Brothel Keeper Name Role Phone Unavailable Primary Care Provider Unavailabl e Encounter Details Date Type Department Care Team (Late st Contact Info) Description 07/16/2018 Transcribed Document [facility] [address] [place] [address] Raj Ching MD [address] [place] [address] Social History Tobacco Use Types Packs/Day [...] Signature: __Cadence perez RN DS Phone #: __[phone] This is a permanent part of the Medical Record documented in this encounter Plan of Treatment Not on file documented as of this encounter Visit Diagnoses Not on filedocumented in this encounter
--- OUTSIDE RECORDS SUMMARY | 2024-11-21 12:51 | XMS_ITS | Encounter Summary ---
Author Organization [facility] Address [address] [place] [address] Care Team Providers Care Pet Nutrition Specialist Name Role Phone Nae Cortés TECHNICAL ARCHITECT Primary Care Provider +1- [phone] Encounter Details Date Type Department Care Team (Late st Contact Info) Description 12/06/2023 Orders Only External Location [address] [place] [address] Provider, External Social History Tobacco Use Types [...] Description 01/16/2025 11:20 AM EST Office Visit [facility] [address] [place] [phone] Sergei Gan MD [address] [place] [address] documented as of this encounter Procedures Procedure [...] on filedocumented in this encounter Care Teams Pet Nutrition Specialist Relationship Specialty Start Date End Date Nae Cortés APRN [address] [place] [address] PCP - General 09/05/24 documented as of this encounter
--- OUTSIDE RECORDS SUMMARY | 2024-11-21 12:51 | XMS_ITS | Encounter Summary ---
Author Organization [employer] ([place], [place], [place], [place]) Address [address] [place] [address] Care Team Providers Care Day Camp Unit Leader Name Role Phone Unavailable Primary Care Provider Unavailabl e Encounter Details Date Type Department Care Team (Late st Contact Info) Description 07/16/2018 Transcribed Document [facility] Family Medicine [address] [place] [address] ProviderKristel MD [address] [place] [address] Social History Tobacco Use Types [...] Kristel ProviderMD - 07/16/2018 12:02 [place] [address] CINDY LABOY :1945 Visit Time:07/15/2018 Your Visit Summary Your Care Team Admitting Physician - RONAL ROBERT MD Attending Physician - DEREK DURAN MD-MENDYT Primary Care Physician - RANDAL ALBARADO (REF)[facility] Referring Physician - DEREK DURAN MD-ORT Your Diagnosis S/P total hip arthroplasty Unilateral primary osteoarthritis, right hip, Unilateral primary osteoarthritis, right hip These Are Your Goals I want to mow the yard. Interventions: Work with PT Discharge Vitals Heart Rate 72 Blood Pressure 105/62 What to do next Instructions From Your Care Team [facility], PT WILL NEED TO INFORM HOME HEALTH DIRECTLY OF WHEN SHE WILL CHANGE 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 TO HER OWN HOME [phone] PT HAS ALL NEEDED DME Follow-Up Appointments Follow Up with JAIDEN LEBRON PA-C When 08/26/2018 10:00 AM EDT Comments Appointment has been made Where: [address] [facility] [address] [place] [address]- Follow Up with Follow up with primary [...] Barley. Bulgur wheat. Millet. Bran muffins. Popcorn. [place]al[place] wafer crackers. Vegetables Sweet potatoes. Spinach. Kale. Artichokes. Cabbage. Broccoli. Green peas. Carrots. Squash. Fruits Berries. Pears. Apples. Oranges. Avocados. Prunes and raisins. Dried figs. Meats and Other Protein Sources [place], kidney, christianson, and soy beans. Split peas. [...] gabriel has 11 g of protein. ??? [place] seeds ??? 1 oz has 5.5 g [...] floor. ??? Place frequently used items in mojy-yx-ldbjr places ??? Keep electrical cables out of [...] ??? Using the bathroom. ??? Using household fish checker or toxic chemicals. ??? Touching or taking [...] Assistance with quitting is available by contacting 3-745-ZIQT-NOW. This is a free resource providing counseling, [...] computer, smartphone, or tablet. Just go to [employer] to get started. Questions? Call . Test [...] was given the opportunity to ask questions. Patient/Broiler Chef Or Cook Name: Patient/Broiler Chef Or Cook Signature: Relationship to Patient: Clinician/Hospital Broiler Chef Or Cook Signature: Date: documented in this encounter Plan of Treatment Not on file documented as of this encounter Visit Diagnoses Not on filedocumented in this encounter
--- OUTSIDE RECORDS SUMMARY | 2024-11-21 12:51 | XMS_ITS | Encounter Summary ---
Author Organization [employer] ([place], [place], [place], [place]) Address [address] [place] [address] Care Team Providers Care Electrical Research Engineer Name Role Phone Unavailable Primary Care Provider Unavailmorris e Encounter Details Date Type Department Care Team (Late st Contact Info) Description 07/16/2018 Transcribed Document [facility] Family Medicine [address] [place] [address] ProviderKristel MD [address] [place] [address] Social History Tobacco Use Types [...]
--- OUTSIDE RECORDS SUMMARY | 2024-11-21 12:51 | XMS_ITS | Encounter Summary ---
Author Organization [employer] ([place], [place], [place], [place]) Address [address] [place] [address] Care Team Providers Care Second Chef Name Role Phone Unavailable Primary Care Provider Unavailabl e Encounter Details Date Type Department Care Team (Late st Contact Info) Description 07/16/2018 Transcribed Document [facility] Family Medicine [address] [place] [address] ProviderKristel MD [address] [place] [address] Social History Tobacco Use Types [...]
--- OUTSIDE RECORDS SUMMARY | 2024-11-21 12:51 | XMS_ITS | Encounter Summary ---
Author Organization [facility] Address [address] [place] [address] Care Team Providers Care Consulting Group Analyst Name Role Phone Nae Cortés TRAM Primary Care Provider +1- [phone] Encounter Details Date Type Department Care Team (Late st Contact Info) Description 10/21/2024 Telephone [facility] [place] [address] [place] [address] [place] [address] Social History Tobacco Use Types Packs/Day Years [...] * Telephone Encounter - Sweta Jones - 10/21/2024 12:17 PM EDT Patient Name:Cindy Braxton : 1945 Date:10/21/2024 [facility] Site: [place] Referring Physician: [facility]/ Seen: Vascular/Dr. Galarza Future scheduling/testing needs: to have CT scan and clinic f/u in approx 6 months. This [facility] Nurse Liaison contacted Cindy Braxton's daughter, following their appointment on 10/17/2024. Explained Liaison services offered through the [facility]. Inquired about appointment details and if patient had any questions or concerns. Asked patient if they were to have a follow up appointment or testing. Patient denied need for assistance for scheduling at this time. Informed patient that liaisons are always available should a need/concern arise, also given the vascular scheduling phone number. Liaison contact information provided. Will follow up in 3 months to ensure continuum of care. Sweta Jones [facility] Nurse Liaison [phone] documented in this encounter Plan of Treatment Upcoming Encounters Date Type Department Care Team (Late st Contact Info) Description 01/16/2025 11:20 AM EST Office Visit [address] [address] Sergei Gan MD [address] [place] [phone] documented as of this encounter Visit [...] documented as of this encounter Care Teams Consulting Group Analyst Relationship Specialty Start Date End Date Nae Cortés APRN [address] [place] [address] PCP - General 09/05/24 documented as of this encounter
--- OUTSIDE RECORDS SUMMARY | 2024-11-21 12:51 | XMS_ITS | Clinical Summary ---
Author Organization [facility] Address [address] [place] [address] Care Team Providers Care Art Professor Name Role Phone Nae Cortés TRAM Primary Care Provider +1- [phone] Allergies Active Allergy Reactions Criticality Noted Date Comments Amoxicillin Diarrhea Low 10/17/2024 Antihistamines, Diphenhydramine-Type Headache Low 10/20/2024 Diclofenac Swelling High 10/17/2024 Doxycycline Diarrhea Low 10/17/2024 Duloxetine Other - please document in the comment field Low 10/17/2024 Sleepiness Ketoprofen Dermatitis Low 10/17/2024 Latex Dermatitis Low 10/17/2024 Pseudoephedrine Hcl Hives Medium 10/20/2024 Tape/Bandaid Adhesive Dermatitis Low 10/17/2024 Medications anastrozole (Arimidex) 1 MG chemo tablet Take 1 tablet (1 mg total) by mouth daily. 09/26/2024 Active amLODIPine (Norvasc) 5 MG tablet Take 1 tablet by mouth daily. 09/15/2024 Active ALPRAZolam (Xanax) 0.5 MG tablet 10/17/2024 Active bumetanide (Bumex) 1 MG tablet Take 1 tablet by mouth 2 times a day. 10/04/2024 Active citalopram (CeleXA) 40 MG tablet Take 1 tablet by mouth daily. 10/01/2024 Active dicyclomine (Bentyl) 20 MG tablet TAKE 1 TABLET BY MOUTH TWICE DAILY NEEDED FOR IBS 10/12/2024 Active Jardiance 10 MG 10/16/2024 Act arcelia HYDROcodone-acet aminophen ([place]) 5-325 MG tablet 10/17/2024 Active irbesartan (Avapro) 75 MG tablet 10/16/2024 Active levothyroxine (Synthroid, Levoxyl) 150 MCG tablet Take 1 tablet by mouth daily. 06/14/2024 Active albuterol 108 (90 Base) MCG/ACT inhaler 11/19/2023 Act arcelia Bevespi Aerosphere 9-4.8 MCG/ACT aerosol Inhale 2 puffs 2 times a day. 09/16/2024 Active spironolactone (Aldactone) 25 MG tablet 10/16/2024 Active Potassium 99 MG tablet 03/12/2016 Active Cyanocobalamin (Vitamin B-12) 2500 MCG sublingual tablet 03/12/2021 Active multivitamin (Theragran) tablet Take 1 tablet by mouth daily. Active Active Problems Problem Noted Date Diagnosed Date Chronic diastolic heart failure 10/20/2024 Hypervolemia associated with renal insufficiency 10/20/2024 Other emphysema 10/20/2024 Malignant neoplasm of female breast 10/20/2024 Acute kidney injury (BETH) with acute tubular nec rosis (ATN) 10/20/2024 Hyponatremia 10/20/2024 Encounters Date Type Department Care Team Description 10/21/2024 Telephone [facility] [place] [address] [place] [address] Sweta Jones 10/20/2024 11:00 AM EDT Office Visit [facility] Nephrology, Bone & Mineral Metabolism [address] [facility], [address] [place] [address] Sergei Gan MD Chronic diastolic heart failure (CMS/HCC) (Primary Dx); Hypervolemia associated with renal insufficiency; Other emphysema (CMS/HCC); Malignant neoplasm of female breast, unspecified estrogen receptor status, unspecified laterality, unspecified site of breast; Acute kidney injury (BETH) with acute tubular necrosis (ATN) (CMS/HCC); Hyponatremia 10/20/2024 Travel 10/17/2024 11:20 AM EDT Office Visit [facility] [address] [place] [address] Bjorn Galarza MD 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 [place] [address] Sweta Jones 09/11/2024 Telephone [facility] [address] [facility] [address] [place] [address] Bjorn Galarza MD 09/11/2024 [facility] Nephrology, Bone & Mineral Metabolism [address] [facility] [place] [address] Sergei Gan MD 09/10/2024 Orders Only External Location [address] [place] [address] Roselia Washignton APRN 09/05/2024 Orders Only [address] [place] [address] Hedy Wright Stage 3 chronic kidney disease, unspecified whether stage 3a or 3b CKD (CMS/HCC) (Primary Dx); Vitamin D insufficiency 08/28/2024 Orders Only [facility] [address] [place] [address] Maya Krueger, RN Infrarenal abdominal aortic aneurysm (AAA) without rupture (CMS/HCC) (Primary Dx) 08/27/2024 [facility] [address] [place] [address] Nae Cortés, HEALTH AID Elevated BUN (Primary Dx); Elevated creatine kinase 08/22/2024 Orders Only External Location [address] [place] [address] Provider, External from Last 3 Months Social [...] on file Sexual Orientation Not on file Last Filed Vital Signs Vital Sign Reading Time Taken Comments Blood Pressure 112/67 10/20/2024 11:07 AM EDT Pulse 77 10/20/2024 11:07 AM EDT Temperature 36.4 C (97.5 F) 10/17/2024 11:25 AM EDT Respiratory Rate - - Oxygen Saturation - - Inhaled Oxygen Concentration - - Weight 53.5 kg (118 lb) 10/20/2024 11:07 AM EDT Height 154.9 cm (5' 1 ) 10/20/2024 11:07 AM EDT Body Mass Index 22.3 10/20/2024 11:07 AM EDT Plan of Treatment Upcoming Encounters Date Type Department Care Team (Late st Contact Info) Description 01/16/2025 11:20 AM EST Office Visit [address] [place] [address] Sergei Gan MD [address] [place] [address] Health Maintenance Due Date Last Done Comments [facility]-Bone Density Scan 1945 [facility]-Diabetes: Hemoglobin A1C 1945 [facility]-Hepatitis C Screening 1945 [facility]-Medicare Annual Wellness (AWV) 1945 [facility]-/Child/Adol SDOH Screenings 1945 Diabetes: Dental Exam 1956 [facility]- SDOH Screenings 1964 [facility]-Adult SDOH Screenings 1964 [facility]-Zoster Vaccines (1 of 2) 1965 [facility]-Lung Cancer Screening 1996 [id number] Vaccine (3 - Moderna risk series) 06/16/2020 05/19/2020, 04/21/2020 [facility]-RSV Vaccine: 60+ Years or (1 - 1-dose 75+ series) 2021 [facility]-Influenza Vaccine (#1) 11/10/202401/25, 01/19/2022, 12/29/2019, Additional history exists [facility]-Depression Screening 10/20/2025 10/20/2024, 08/03/2024 [facility]-DTaP,Tdap,and Td Vaccines (2 - Td or [...] CT OUTSIDE IMAGES 09/10/2024 1:16 PM EDT US ABDOMEN OUTSIDE IMAGES 08/22/2024 9:32 AM EDT from Last 3 Months Results * CT OUTSIDE IMAGES (09/10/2024 1:16 PM EDT) Anatomical Region Laterality Modality Computed Tomogra phy 09/10/2024 1:16 PM EDT us [facility] IMG CT PROCEDURES Arianna l Result * US ABDOMEN OUTSIDE IMAGES (08/22/2024 9:32 AM EDT) Anatomical Region Laterality Modality Ultrasound 08/22/2024 9:32 AM EDT us External Provider IMG US PROCEDURES Final Result from Last 3 [place] [address] [employer] [employer] Advance Directives Documents on File Type Date Recorded 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
--- OUTSIDE RECORDS SUMMARY | 2024-11-21 12:51 | XMS_ITS | Encounter Summary ---
Author Organization [employer] ([place], [place], [place], [place]) Address [address] [place] [address] Care Team Providers Care Ocular Pathologist Name Role Phone Unavailable Primary Care Provider Unavailabl e Encounter Details Date Type Department Care Team (Late st Contact Info) Description 07/16/2018 Transcribed Document [facility] Radiology [address] [place] [address] Ronal Robert MD [address] [place] [address] Social History Tobacco Use Types Packs/Day [...] tab QHS Primary Care Provider RANDAL ALBARADO (REF)[facility] Time spent 35 minutes documented in this encounter Plan of Treatment Not on file documented as of this encounter Visit Diagnoses Not on filedocumented in this encounter
--- OUTSIDE RECORDS SUMMARY | 2024-11-21 12:51 | XMS_ITS | Encounter Summary ---
Author Organization [employer] ([place], [place], [place], [place]) Address [address] [place] [address] Care Team Providers Care Special Needs Bus Driver Name Role Phone Unavailable Primary Care Provider Unavailabl e Encounter Details Date Type Department Care Team (Late st Contact Info) Description 06/28/2018 Transcribed Document [facility] Family Medicine [facility] [place] [address] ProviderKristel MD [address] [place] [address] Social History Tobacco Use [...] Source : Stated Height Entry Format : Iraan Height, Feet : 5 ft(Converted to: 152 cm, 60 Inch) Height, Inches : 1 Inch(Converted to: 0 ft 1 Inch, 2.54 cm) Clinical Height : 154.94 cm Weight Source : Standing scale Weight Entry Format : Iraan Clinical Dosing Weight : 65 kg Weight, Pounds : 143 lb Body Surface Area (BSA) : 1.64 m2 Body Mass Index : 27.1 kg/m2 (HI) [place] Body Weight : 47 kg CLARISSA GUERRERO [...] #2 Relationship : daughter Primary Language : Armenian Communication Barrier : None CLARISSA GUERRERO RN [...]
--- OUTSIDE RECORDS SUMMARY | 2024-11-21 12:51 | XMS_ITS | Encounter Summary ---
Author Organization [employer] ([place], [place], [place], [place]) Address [address] [place] [address] Care Team Providers Care Fisher Weir Name Role Phone Unavailable Primary Care Provider Unavailabl e Encounter Details Date Type Department Care Team (Late st Contact Info) Description 07/16/2018 Transcribed Document [facility] Family Medicine [address] [place] [address] ProviderKristel MD [address] [place] [address] Social History Tobacco Use Types [...]
--- OUTSIDE RECORDS SUMMARY | 2024-11-21 12:51 | XMS_ITS | Encounter Summary ---
Author Organization [employer] ([place], [place], [place], [place]) Address [address] [place] [address] Care Team Providers Care Consumer Experience Consultant Name Role Phone Unavailable Primary Care Provider Unavailabl e Encounter Details Date Type Department Care Team (Late st Contact Info) Description 07/16/2018 Transcribed Document [facility] Family Medicine [address] [place] [address] ProviderKristel MD [address] [place] [address] Social History Tobacco Use Types [...] Kristel ProviderMD - 07/16/2018 12:09 [place] [address] CINDY LABOY :1945 Visit Time:07/15/2018 Your Visit Summary Your Care Team Admitting Physician - RONAL ROBERT MD Attending Physician - DEREK DURAN MD-MENDYT Primary Care Physician - RANDAL ALBARADO (REF)[facility] Referring Physician - DEREK DURAN MD-ORT Your Diagnosis S/P total hip arthroplasty Unilateral primary osteoarthritis, right hip, Unilateral primary osteoarthritis, right hip These Are Your Goals I want to mow the yard. Interventions: Work with PT Discharge Vitals Heart Rate 72 Blood Pressure 105/62 What to do next Instructions From Your Care Team [facility], PT WILL NEED TO INFORM HOME HEALTH DIRECTLY OF WHEN SHE WILL CHANGE 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 TO HER OWN HOME [phone] PT HAS ALL NEEDED DME Follow-Up Appointments Follow Up with JAIDEN LEBRON PA-C When 08/26/2018 10:00 AM EDT Comments Appointment has been made Where: [address] [facility] [address] [place] [address]- Follow Up with Follow up with primary [...] Barley. Bulgur wheat. Millet. Bran muffins. Popcorn. [place] wafer crackers. Vegetables Sweet potatoes. Spinach. Kale. Artichokes. Cabbage. Broccoli. Green peas. Carrots. Squash. Fruits Berries. Pears. Apples. Oranges. Avocados. Prunes and raisins. Dried figs. Meats and Other Protein Sources [place], kidney, christianson, and soy beans. Split peas. [...] gabriel has 11 g of protein. ??? [place] seeds ??? 1 oz has 5.5 g [...] floor. ??? Place frequently used items in jffp-dy-ixpdv places ??? Keep electrical cables out of [...] Using the bathroom. ??? Using household senior core java developer or toxic chemicals. ??? Touching or [...] Assistance with quitting is available by contacting 5-442-EIYY-NOW. This is a free resource providing counseling, [...] computer, smartphone, or tablet. Just go to [employer] to get started. Questions? Call . Test [...] was given the opportunity to ask questions. Patient/Tobacco Cloth Reclaimer Name: Patient/Tobacco Cloth Reclaimer Signature: Relationship to Patient: Clinician/Hospital Tobacco Cloth Reclaimer Signature: Date: documented in this encounter Plan of Treatment Not on file documented as of this encounter Visit Diagnoses Not on filedocumented in this encounter
--- OUTSIDE RECORDS SUMMARY | 2024-11-21 12:51 | XMS_ITS | Encounter Summary ---
Author Organization [facility] Address [address] [place] [address] Care Team Providers Care High School Agriculture Teacher Name Role Phone Nae Cortés NURSES SUPERINTENDENT Primary Care Provider +1- [phone] Encounter Details Date Type Department Care Team (Latest Contact Info) Description 10/20/2024 Travel Social History Tobacco Use Types Packs/Day [...] as of this encounter Functional Status * Over the past 2 weeks, how often have you been bothered by any of the following problems? Question Answer Date of Assessment Author Little interest or pleasure in doing things Not at all 10/20/2024 11:23 AM EDBecca Freeman Feeling down, depressed, or hopeless Nearly every day 10/20/2024 11:23 AM Becca Graf Patient Health Questionnaire-2 Score 3 10/20/2024 11:23 AM Becca Graf * Question Answer Date of Assessment Author Trouble falling or staying asleep, or sleeping too much Not at all 10/20/2024 11:23 AM Becca Graf Feeling tired or having terrie le energy Several days 10/20/2024 11:23 AM Becca Graf Poor appetite or overeating Not at all 10/20/2024 11 :23 AM Becca Graf Feeling bad about yourself - or that you are a failure or have let yourself or your family down Not at all 10/20/2024 11:23 AM Becca Maharaj Trouble concentrating on thi ngs, such as reading the newspaper or watching television Not at all 10/20/2024 11:23 AM Becca Graf Moving or speaking so slowly that other people could have noticed? Or the opposite - being so fidgety or restless that you have been moving around a lot more than usual. Not at all 10/20/2024 11:23 AM Becca Graf Thoughts that you would be b ravi [...] Not difficult at all 10/20/2024 11:23 AM Becca Graf * How difficult have these problems made it for you to do your work, take care of things at home, or get along with other people? Answer Date of Assessment Author Not difficult at all 10/20/2024 11:23 AM Becca Maharaj documented as of this encounter Plan of Treatment Upcoming Encounters Date Type Department Care Team (Late st Contact Info) Description 01/16/2025 11:20 AM EST Office Visit [facility] [address] [facility] [address] [place] [address] Sergei Gan MD [address] [place] [phone] documented as of this encounter Visit Diagnoses Not on filedocumented in this encounter Additional Health Concerns Assessment Noted Time PHQ-9 Depression Total Score: 4 10/21/19 11:23 AM EDT A fall risk assessment has been complete d for the patient 10/20/2024 11:27 AM EDT A Body Mass Index follow-up plan has been documented for the patient 10/21/2024 10:09 AM EDT documented as of this encounter Care Teams High School Agriculture Teacher Relationship Specialty Start Date End Date Nae Cortés APRN [address] [address] PCP - General 09/05/24 documented as of this encounter
--- OUTSIDE RECORDS SUMMARY | 2024-11-21 12:51 | XMS_ITS | Encounter Summary ---
Author Organization [employer] ([place], [place], [place], [place]) Address [address] [place] [address] Care Team Providers Care Plastic Shaper Name Role Phone Unavailable Primary Care Provider Unavailabl e Encounter Details Date Type Department Care Team (Late st Contact Info) Description 07/15/2018 Transcribed Document [facility] Family Medicine [address] [place] [address] ProviderKristel MD [address] [place] [address] Social History Tobacco Use Types [...] 07/15/2018 6:15 EDT by Earlene Sheriff Patient Greeting Card Editor Height and Weight, Clinical Dosing Height Source : Stated Height Entry Format : Colbert Height, Feet : 5 ft(Converted to: 152 cm, 60 Inch) Height, Inches : 1 Inch(Converted to: 0 ft 1 Inch, 2.54 cm) Clinical Height : 154.94 cm Weight Source : Standing scale Weight Entry Format : Colbert Clinical Dosing Weight : 63.18 kg Weight, Pounds : 139 lb Body Surface Area (BSA) : 1.62 m2 Body Mass Index : 26.3 kg/m2 (HI) [place] Body Weight : 47 kg Earlene Sheriff Patient Greeting Card Editor - 07/15/2018 6:15 EDT Electronically signed by Rosario [facility] Conversion Clothing Cutter Cerner at 06/29/2022 1:18 PM CDT documented in this encounter Plan of Treatment Not on file documented as of this encounter Visit Diagnoses Not on filedocumented in this encounter
--- OUTSIDE RECORDS SUMMARY | 2024-11-21 12:51 | XMS_ITS | Encounter Summary ---
Author Organization Healthcare Address [address] [place] [address] Care Team Providers Care Environmental Planning Engineer Name Role Phone Nae Cortés PRODUCTION COUNTER Primary Care Provider [phone] Reason for Visit * Reason Onset Date Comments HCN Clinical Concern/Question 10/13/2024 Encounter Details Date Type Department Care Team (Late st Contact Info) Description 10/13/2024 [facility]phone [facility] [address] [facility] 5th Floor [address] [place] [address] Bjorn Galarza MD [address] [facility] [address] [place] [address] HCN Clinical Concern/Question Social History [...] EDT Clinical Concern/Question Reason for Call: Chandana [facility] calling back to speak to Nita about patient. Needing some clarification on what's needed. Please call Chandni to discuss. Thank you Best contact number: Other: [phone] Optimal time of day to reach caller: [...] Description 01/16/2025 11:20 AM EST Office Visit [facility] [address] [facility] [address], [place] [address] Sergei Gan MD [address] [place] [phone] documented as of this encounter Visit Diagnoses Not on filedocumented in this encounter Care Teams Environmental Planning Engineer Relationship Specialty Start Date End Date Nae Cortés APRN [address] [place] [address] PCP - General 09/05/24 documented as of this encounter
--- OUTSIDE RECORDS SUMMARY | 2024-11-21 12:52 | XMS_ITS | Encounter Summary ---
Author Organization [employer] ([place], [place], [place], [place]) Address [address] [place] [address] Care Team Providers Care Digital Media Manager Name Role Phone Unavailable Primary Care Provider Unavailabl e Encounter Details Date Type Department Care Team (Late st Contact Info) Description 07/16/2018 Transcribed Document [facility] [place] [address] [place] [address] ProviderKristel MD [address] [place] [address] Social History Tobacco Use Types [...] Barley. Bulgur wheat. Millet. Bran muffins. Popcorn. [place] wafer crackers. Vegetables Sweet potatoes. Spinach. Kale. Artichokes. Cabbage. Broccoli. Green peas. Carrots. Squash. Fruits Berries. Pears. Apples. Oranges. Avocados. Prunes and raisins. Dried figs. Meats and Other Protein Sources [place], kidney, christianson, and soy beans. Split peas. [...] gabriel has 11 g of protein. ?? [place] seeds ??? 1 oz has 5.5 g [...] floor. ?? Place frequently used items in qdqo-da-ojxai places ?? Keep electrical cables out of [...] ?? Using the bathroom. ?? Using household contracts analyst or toxic chemicals. ?? Touching or taking [...] leg. Electronically signed by Tatiana Ponce Conversion Museum Informatics Specialist Cerner at 06/29/2022 1:19 PM CDT documented in this encounter Plan of Treatment Not on file documented as of this encounter Visit Diagnoses Not on filedocumented in this encounter
--- OUTSIDE RECORDS SUMMARY | 2024-11-21 12:52 | XMS_ITS | Encounter Summary ---
Author Organization [employer] ([place], [place], [place], [place]) Address [address] [place] [address] Care Team Providers Care Strength And Conditioning Coach Name Role Phone Unavailable Primary Care Provider Unavailabl e Encounter Details Date Type Department Care Team (Late st Contact Info) Description 07/16/2018 Transcribed Document [facility] [place] [address] [place] [address] ProviderKristel MD [address] [place] [address] Social History Tobacco Use Types [...]
--- OUTSIDE RECORDS SUMMARY | 2024-11-21 12:52 | XMS_ITS | Encounter Summary ---
Author Organization [email or web address] ([place], [place], [place], [place]) Address [address] [place] [address] Care Team Providers Care Relationship Banker Name Role Phone Unavailable Primary Care Provider Grady peres Encounter Details Date Type Department Care Team (Late st Contact Info) Description 07/16/2018 Transcribed Document [facility] [place] [address] [place] [address] ProviderKristel MD [address] [place] [address] Social History Tobacco Use Types [...]
--- OUTSIDE RECORDS SUMMARY | 2024-11-21 12:52 | XMS_ITS | Encounter Summary ---
Author Organization [employer] ([place], [place], [place], [place]) Address [address] [place] [address] Care Team Providers Care Traffic Rate Computer Name Role Phone Unavailable Primary Care Provider Unavailabl e Encounter Details Date Type Department Care Team (Late st Contact Info) Description 07/16/[address] [facility] [place] Family Medicine [address] [place] [address] ProviderKristel MD [address] [place] [address] Social History Tobacco Use Types [...] 07/16/2018 9:53 EDT by NAYA MINOR, Care Management-Barista Initial Assessment I Previously Documented Living Environment : No qualifying data available. Living Situation : Home Patient Lives With : Alone Emergency Contact #1 : Sera Emergency Contact #1 Emergency Contact #1 Relationship : daughter Emergency Contact #2 : Nae Emergency Contact #2 Emergency Contact #2 Relationship : daughter NAYA MINOR, Care Management-Barista - 07/16/2018 9:53 EDT Initial Assessment II Sensory and Motor Deficits : Other: AYESHA Current Home Treatments and Equipment : Bedside commode, Shower chair, Walker NAYA MINOR, Care Management-Barista - 07/16/2018 9:53 EDT Discharge Needs I Anticipated Discharge Date : 07/16/2018 EDT Anticipated Discharge To, CM : Home with home health Current Home Treatment/Equipment : Current Home Treatment/Equipment No qualifying data available. NAYA MINOR, Care Management-Barista - 07/16/2018 9:53 EDT Discharge Needs II Professional Skilled Services : Professional Skilled Services No qualifying data available. Services and Community Resources : Home Health Needs Assistance with Transportation : No Discharge Options Discussed with Patient : [facility] [place] NAYA MINOR Care Management-Barista - 07/16/2018 9:53 EDT documented in this encounter Plan of Treatment Not on file documented as of this encounter Visit Diagnoses Not on filedocumented in this encounter
--- OUTSIDE RECORDS SUMMARY | 2024-11-21 12:52 | XMS_ITS | Encounter Summary ---
Author Organization [employer] ([place], [place], [place], [place]) Address [address] [place] [address] Care Team Providers Care File Clerk Data Entry Name Role Phone Unavailable Primary Care Provider Unavailabl e Encounter Details Date Type Department Care Team (Late st Contact Info) Description 07/16/2018 Transcribed Document [facility] Family Medicine [address] [place] [address] ProviderKristel MD [address] [place] [address] Social History Tobacco Use Types [...] Kristel ProviderMD - 07/16/2018 12:10 [place] [address] CINDY LABOY :1945 Visit Time:07/15/2018 Your Visit Summary Your Care Team Admitting Physician - RONAL ROBERT MD Attending Physician - DEREK DURAN MD-MENDYT Primary Care Physician - RANDAL ALBARADO (REF[facility] Referring Physician - DEREK DURAN MD-ORT Your Diagnosis S/P total hip arthroplasty Unilateral primary osteoarthritis, right hip, Unilateral primary osteoarthritis, right hip These Are Your Goals I want to mow the yard. Interventions: Work with PT Discharge Vitals Heart Rate 72 Blood Pressure 105/62 What to do next Instructions From Your Care Team [facility] FOR PHYSICAL THERAPY, PT WILL NEED TO INFORM HOME HEALTH DIRECTLY OF WHEN SHE WILL CHANGE 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 TO HER OWN HOME [phone] PT HAS ALL NEEDED DME Follow-Up Appointments Follow Up with JAIDEN LEBRON PA-C When 08/26/2018 10:00 AM EDT Comments Appointment has been made Where: [address] [facility] [address] [place] [address]- Follow Up with Follow up with primary [...] Barley. Bulgur wheat. Millet. Bran muffins. Popcorn. [place] wafer crackers. Vegetables Sweet potatoes. Spinach. Kale. Artichokes. Cabbage. Broccoli. Green peas. Carrots. Squash. Fruits Berries. Pears. Apples. Oranges. Avocados. Prunes and raisins. Dried figs. Meats and Other Protein Sources [place], kidney, christianson, and soy beans. Split peas. [...] gabriel has 11 g of protein. ??? [place] seeds ??? 1 oz has 5.5 g [...] floor. ??? Place frequently used items in tmdx-bm-mhjzc places ??? Keep electrical cables out of [...] ??? Using the bathroom. ??? Using household retort condenser attendant or toxic chemicals. ??? Touching or taking [...] Assistance with quitting is available by contacting 1-338-APOS-NOW. This is a free resource providing counseling, [...] computer, smartphone, or tablet. Just go to [employer] to get started. Questions? Call . Test [...] was given the opportunity to ask questions. Patient/Multiple Punch Press Operator Name: Patient/Multiple Punch Press Operator Signature: Relationship to Patient: Clinician/Hospital Multiple Punch Press Operator Signature: Date: documented in this encounter Plan of Treatment Not on file documented as of this encounter Visit Diagnoses Not on filedocumented in this encounter
[2024-11-21 13:09] LABS: Hematocrit 40.2 % (37.0-47.0); Hemoglobin 12.5 g/dL (12.2-16.2); Immature Granulocytes % 0.2 %; Mean Corpuscular HGB Conc 31.1 g/dL (31.8-35.4); Mean Corpuscular Hemoglobin 29.3 pg (27.0-31.2); Mean Corpuscular Volume 94.1 fl (81-99); Nucleated Red Blood Cells % 0 %; Platelet Count 235 K/mm3 (142-424); Red Blood Count 4.27 M/mm3 (4.20-5.40); Red Cell Distribution Width-SD 45.6 fL; White Blood Count 5.4 K/mm3 (4.8-10.8)
[2024-11-21 14:14] LABS: Hemoglobin A1C 5.9 % (4.0-6.0)
[2024-11-21 14:19] LABS: Thyroid Stimulating Hormone 1.76 uIU/mL (0.465-4.68)
[2024-11-21 14:38] LABS: Vitamin B12 847 pg/mL (239-931)
[2024-11-21 15:01] LABS: Folate > 20.00 ng/mL
[2024-11-21 15:05] LABS: Chloride 93 mmol/L (98-107); Potassium 4.8 mmoL/L (3.5-5.1); Sodium 132 mmol/L (136-145)
[2024-11-21 15:08] LABS: Anion Gap 14.8 mEq/L (5-15); Blood Urea Nitrogen 20 mg/dl (7-17); Carbon Dioxide 29 mmol/L (22.0-30.0); Creatinine,Serum 0.90 mg/dl (0.52-1.04); Estimated Glomerular Filt Rate 61 ml/min (>60); GFR (African American) 73 ML/MIN (>60); Iron 59 ug/dL (37-170)
[2024-11-21 15:09] LABS: Calcium 9.7 mg/dl (8.4-10.2); Glucose 94 mg/dl (74-100)
[2024-11-21 15:17] LABS: Total Iron Binding Capacity 393 ug/dL (265-497)
[2024-11-21 15:44] LABS: Ferritin 28.5 ng/ml (11.1-264)
== END 2024-11-21 23:59 | disposition home or self-care (01) ==
LOC: LAB 12:47
PROVIDERS: PCP Nurse Practitioner Family; Visit Provider Nurse Practitioner Family
DX: E03.9 Hypothyroidism, unspecified (principal); R73.09 Other abnormal glucose; D64.9 Anemia, unspecified
CPT/HCPCS: 36415; 80048; 82607; 82728; 82746; 83036; 83540; 83550; 84443; 85025

== ENCOUNTER 2025-01-01 18:37 | Inpatient (IN) | payer MEDICARE, MEDICAID, SELFPAY ==
[2025-01-01] VITALS (15 sets, daily range): BP systolic 98–125; BP diastolic 52–77; PULSE 70–80; RESP 11–27; TEMP 36.6–36.9; O2SAT 89–97; BMI 22.6; BMI 23.7
--- OUTSIDE RECORDS SUMMARY | 2025-01-01 18:48 | XMS_ITS | Encounter Summary ---
Author Organization [employer] ([place], [place], [place], [place]) Address [address] [place] [address] Care Team Providers Care Weapons System Instrument Mechanic Name Role Phone Unavailable Primary Care Provider Unavailabl e Encounter Details Date Type Department Care Team (Late st Contact Info) Description 07/15/2018 Transcribed Document [facility] [place] Family Medicine [address] [place] [address] ProviderKristel MD [address] [place] [address] Social History Tobacco Use Types [...] Kristel ProviderMD - 07/15/2018 8:01 AM CDT [facility] [place] Main OR PACU Summary Primary Physician: DEREK DURAN MD-ORKevin Finalized Date/Time: 07/15/18 10:28:25 Pt. Name: EDSON LABOY /Sex: 1945 Female Med Rec #: [id number] Physician: DEREK DURAN MD-ORT Financial #: [id number] Pt. Type: I Room/Bed: 3/ Admit/Disch: 07/15/18 04:51:00 - Institution: [facility] OR PACU Case Times Entry 1 In PACU I 07/15/18 09:21:00 Ready for PACU 07/15/18 09:51:00 Discharge Discharge from PACU 07/15/18 10:10:00 I Last Modified By: Nikki Wang RN 07/15/18 10:27:52 [facility] Main OR PACU Case Times Audit 07/15/18 10:27:52 Electromechanical Assembly Technician: HELFEP Modifier: HELFEP <+> 1 Ready for PACU Discharge <+> 1 Discharge from PACU I [facility] Main OR PACU Acuity Entry 1 Start Time 07/15/18 09:51:00 Stop Time 07/15/18 10:10:00 Acuity Level [facility] PACU Acuity I Last Modified By: Nikki Wang RN 07/15/18 10:28:21 Finalized By: Nikki Wang RN Document Signatures Signed By: Nikki Wang RN 07/15/18 10:28 Electronically signed by Rosario [facility] Conversion Mobile Electronics Installer Cerner at 06/29/2022 1:40 PM CDT documented in this encounter Plan of Treatment Not on file documented as of this encounter Visit Diagnoses Not on filedocumented in this encounter
--- OUTSIDE RECORDS SUMMARY | 2025-01-01 18:48 | XMS_ITS | Encounter Summary ---
Author Organization Healthcare Address [address] [place] [address] Care Team Providers Care Marketing Designer Name Role Phone Nae Cortés MANAGER SALES AND MARKETING Primary Care Provider +1- [phone] Encounter Details Date Type Department Care Team (Late st Contact Info) Description 09/10/2024 Orders Only External Location [address] [place] [address] Roselia Washington APRN [address] [facility] [address] [address] Social History Tobacco Use Types Packs/Day Years [...] Description 01/16/2025 11:20 AM EST Office Visit [facility] [address] [place] [phone] Sergei Gan MD [address] [place] [phone] 04/17/2025 11:00 AM EST Appointment [facility] [address] [place] [phone] documented as of this encounter Procedures Procedure Name Priority Date/Time Associated Diagnosis Comments CT OUTSIDE IMAGES 09/10/2024 1:16 PM EDT documented in this encounter Results * CT OUTSIDE IMAGES (09/10/2024 1:16 PM EDT) Anatomical Region Laterality Modality Computed Tomogra phy 09/10/2024 1:16 PM EDT Roselia Washington MANAGER SALES AND MARKETING IMG CT PROCEDURES Arianna hurd Result documented in this encounter Visit Diagnoses Not on filedocumented in this encounter Care Teams Marketing Designer Relationship Specialty Start Date End Date Nae Cortés APRN [address] [place] [address] PCP - General 09/05/24 documented as of this encounter
--- OUTSIDE RECORDS SUMMARY | 2025-01-01 18:48 | XMS_ITS | Encounter Summary ---
Author Organization [employer] ([place], [place], [place], [place]) Address [address] [place] [address] Care Team Providers Care Vice President Planning Name Role Phone Unavailable Primary Care Provider Unavailabl e Encounter Details Date Type Department Care Team (Late st Contact Info) Description 07/22/2018 Transcribed Document [facility] [place] Medicine [address] [place] [address] ProviderKristel MD [address] [place] [address] Social History Tobacco Use Types [...] Policy Numbers : Insurance 1 Health Plan: [employer] PPO Policy Number: [id number] Authorization Number: [id number] Insurance Primary Name : [employer] Medicare Authorization Status-Primary : Notification only Reference Number-Primary : [id number] Authorization Number-Primary : [id number] Authorized Service Begin Date-Primary : 07/15/2018 EDT Authorization Comments-Primary : approved per availity for inpt Historical Authorization Comments-Primary : Comment 1: Uploaded clinicals to [employer] Medicare via [employer] by . (ERICK JONES RN-Utilization Review 07/15/2018 15:49) LYNN REID RN-Utilization Review - 07/22/2018 12:50 EDT Electronically signed by [facility] Conversion Flour Blender Helper Cerner at 06/29/2022 1:34 PM CDT documented in this encounter Plan of Treatment Not on file documented as of this encounter Visit Diagnoses Not on filedocumented in this encounter
--- OUTSIDE RECORDS SUMMARY | 2025-01-01 18:48 | XMS_ITS | Clinical Summary ---
Author Organization [facility] Address [address] [place] [address] Phone Care Team Providers Care Applied Statistician Name Role Phone RANDAL ALBARADO MD Primary Care Provider [phone] Harjinder GARBER, Bjorn Naranjo Unavailable [phone] Reason for Visit and Chief Complaint BRACE FITTING Problems Includes: Problems addressed during this encounter and other active Problems All Visits Onset Date Resolved Date Provider Condition S tatus Joint Pain Hip Left 11/10/2021 Masood basilio PA-C Active Last Documented On 2 9:30AM ; [facility] Joint Pain Hip Right 10/22/2015 Raúl Merritt MD Active Last Documented On 6 12:14PM ; [facility] Plan of Treatment No Plan of Treatment Recorded Assessments Includes: Assessments from this encounter No Assessments Recorded Medical Equipment - Implanted Devices Includes: Current Devices No Medical Equipment Recorded Medications Includes: Medications discussed during this encounter and other current Medications Current Medications (continue as prescribed) Levothyroxine Sodium 150 MCG Oral Tablet 11/10/2021 Provider: Diagnosis: Last Documented On 2 10:28AM By Alem Aden ; [facility] ALPRAZolam 0.5 MG Oral Tablet 11/10/2021 Provider: Diagnosis: Last Documented On 2 10:28AM By Alem Aden ; [facility] Diclofenac Sodium 75 MG Oral Tablet Delayed Release Provider: Diagnosis: Last Documented On 2 10:29AM By Alem Aden ; [facility] Nadolol 40 MG Oral Tablet 09/27/2021 Provider: Sa yogi Cortés APRN Diagnosis: Last Documented On 2 10:29AM By Alem Aden ; [facility] Dicyclomine HCl 20 MG Oral Tablet 09/15/2021 Provide r: Nae Cortés APRN Diagnosis: Last Documented On 2 10:29AM By Alem Aden ; [facility] Citalopram Hydrobromide 20 M G Oral Tablet 08/12/2021 Provider: Nae jones APRN Diagnosis: Last Documented On 2 10:29AM By Alem Aden ; [facility], [facility] Losartan Potassium 100 MG Or al Tablet 07/14/2021 Provider: Nae jones APRN Diagnosis: Last Documented On 2 10:29AM By Alem Aden ; [facility] Furosemide 20 MG Oral Tablet 05/03/2021 Provider: Nae Cortés APRN Diagnosis: Last Documented On 2 10:29AM By Alem Aden ; [facility], [facility] Medications Administered Includes: Administered Medications from this encounter No Administered Medications Recorded Results Includes: Results discussed during this encounter No Results Recorded For Specified Dates History of Present Illness Includes: History of Present Illness from this encounter No History of Present Illness Recorded Social History No Social History Recorded - Smoking Status Unknown Medical History Includes: Medical History addressed during this encounter No Medical History Recorded Family History Includes: Family History addressed during this encounter No Family History Recorded Review of Systems Includes: Review of Systems from this encounter No Review of Systems Recorded Mental Status Includes: Mental Status from this encounter No Mental Status Recorded Functional Status Includes: Functional Status from this encounter No Functional Status Recorded Physical Exam Includes: Physical Exam from this encounter No Physical Exam Recorded Allergies Includes: Active Allergies Substance Type Reaction Onset Date Resolved Date Statu s Ketoprofen Allergy 04/22/2018 Active Last Documented On 2 9:30AM ; [facility] Diclofenac Potassium Allergy 04/22/2018 Active Last Documented On 2 9:30AM ; [facility], [facility] Antihistamine Decongestant Allergy 04/22/2018 Active Last Documented On 2 9:30AM ; [facility] Insurance Includes: Active Insurance Policies Plan Name Member ID Group # Subscriber Relationship Effect arcelia Dates 1 - [employer] [id number] Cindy Braxton Self 01/06 - Unknown Clinical Notes Includes: Clinical Notes from this encounter No Clinical Notes Recorded
--- OUTSIDE RECORDS SUMMARY | 2025-01-01 18:48 | XMS_ITS | Referral Summary ---
Author Organization [employer] ([place], [place], [place], [place]) Address [address] [place] [address] Care Team Providers Care Licensed Club Manager Name Role Phone Unavailable Primary Care [...] Date Bryson rded Speak language other than Bhutanese at home Not on file 03/30/2023 Want [...]
--- OUTSIDE RECORDS SUMMARY | 2025-01-01 18:48 | XMS_ITS | Encounter Summary ---
Author Organization [employer] ([place], [place], [place], [place]) Address [address] [place] [address] Care Team Providers Care Barge Pilot Name Role Phone Unavailable Primary Care Provider Unavailabl e Encounter Details Date Type Department Care Team (Late st Contact Info) Description 07/15/[address] [facility] [place] Family Medicine [facility] [place] [address] ProviderKristel MD [address] [place] [address] Social History Tobacco Use Types [...]
--- OUTSIDE RECORDS SUMMARY | 2025-01-01 18:48 | XMS_ITS | Encounter Summary ---
Author Organization [employer] ([place], [place], [place], [place]) Address [address] [place] [address] Care Team Providers Care Roustabout Head Name Role Phone Unavailable Primary Care Provider Unavailabl e Encounter Details Date Type Department Care Team (Late st Contact Info) Description 07/15/2018 Transcribed Document [facility] [place] Family Medicine [address] [place] [address] ProviderKristel MD [address] [place] [address] Social History Tobacco Use [...] Assist, minimal Toileting Device : Commode, bedside, Yzwnu-wv-onh commode Toilet Transfer Assist Level : Assist, [...] OSCAR FRANZ OTR/L - 07/15/2018 12:28 EDT Whipped Topping Supervisor Goals, OT Other LTG Grid Goal [...] - 07/15/2018 12:28 EDT Electronically signed by [facility] Conversion Building Surveyor Cerner at 06/29/2022 1:44 PM CDT documented in this encounter Plan of Treatment Not on file documented as of this encounter Visit Diagnoses Not on filedocumented in this encounter
--- OUTSIDE RECORDS SUMMARY | 2025-01-01 18:48 | XMS_ITS | Encounter Summary ---
Author Organization [employer] ([place], [place], [place], [place]) Address [address] [place] [address] Care Team Providers Care Medical Device Sales Representative Name Role Phone Unavailable Primary Care Provider Unavailabl e Encounter Details Date Type Department Care Team (Late st Contact Info) Description 07/15/2018 Transcribed Document [facility] [place] Family Medicine [address] [place] [address] ProviderKristel MD [address] [place] [address] Social History Tobacco Use Types [...] Source : Stated Height Entry Format : [place] Height, Feet : 5 ft(Converted to: 152 cm, 60 Inch) Height, Inches : 1 Inch(Converted to: 0 ft 1 Inch, 2.54 cm) Clinical Height : 154.94 cm Weight Source : Standing scale Weight Entry Format : [place] Clinical Dosing Weight : 63.18 kg Weight, Pounds : 139 lb Body Surface Area (BSA) : 1.62 m2 Body Mass Index : 26.3 kg/m2 (HI) [place] Body Weight : 47 kg Nicole Coley Rn - 07/15/2018 6:34 EDT Health Histories Smoking Status : 10 or more cigarettes (1/2 pack or more)/day in last 30 days Smokeless Tobacco Status : Never Desires Tobacco Cessation Medication : No Reason for No Tobacco Cessation Medication : Refuses FDA approved medications Implant/Device Type, Respiratory Care Assistant and Model : left hip replacement, poss. [...] Obtained From : Patient Primary Language : Maori Preferred Communication Mode : Verbal Communication Barrier [...] Scale Risk Level : 25-45 Medium Risk [place] Fall Interventions : Adequate lighting, Bed in [...] the text rendition version of the form. [place] Coma [place] Best Motor Response : Obey commands [place] Best Verbal Response : Oriented [place] Eye Opening Response : Spontaneous Maggi Coma Score : 15 Nicole Coley Rn - 07/15/2018 6:34 EDT documented in this encounter Plan of Treatment Not on file documented as of this encounter Visit Diagnoses Not on filedocumented in this encounter
--- OUTSIDE RECORDS SUMMARY | 2025-01-01 18:48 | XMS_ITS | Encounter Summary ---
Author Organization [employer] ([place], [place], [place], [place]) Address [address] [place] [address] Care Team Providers Care Regulatory Compliance Director Name Role Phone Unavailable Primary Care Provider Unavailabl e Encounter Details Date Type Department Care Team (Late st Contact Info) Description 07/15/2018 Transcribed Document [facility] [place] Family Medicine [address] [place] [address] ProviderKristel MD [address] [place] [address] Social History Tobacco Use Types [...] LABOY /Sex: 1945 Female Med Rec #: [id number] Physician: DEREK DURAN MD-ORT Financial #: [id number] Pt. Type: I Room/Bed: / Admit/Disch: 07/15/18 04:51:00 - Institution: [facility] IntraOp Case Attendance Entry 1 Entry 2 Entry 3 Case Attendee Ney Ann ST Austin, Martha Wells RN Role Performed Scrub, Second Scrub, First Intellectual Property Counsel, First Time In 07/15/18 07:28:00 07/15/18 07:28:00 [...] Brown, Frankie Brooks, Aysha Guerra MD-ORT Tech Animal Nursery Worker Role Performed Surgeon/Proceduralist, Assistive Personnel Sweatband Cutting Machine Operator First Time In 07/15/18 07:59:00 07/15/18 07:28:00 [...] Case Attendee CLARITZA VEGAS CSA LUNSFORD, JAMES, INSTRUCTIONAL DESIGN SPECIALIST MAHAMED BE, PAC Role Performed Benefits Specialist Recruiter, First INSTRUCTIONAL DESIGN SPECIALIST/Nurse Seed Sales Manager Physician legal document assistant Time In 07/15/18 07:28:00 07/15/18 07:28:00 [...] [facility] IntraOp Case Attendance Audit 07/15/18 09:35:34 Drywall Hanger Framer: KARLOS Modifier: KARLOS 8 <+> Time Out 8 <*> Procedure Hip Total Anterior Approach 9 <+> Time Out 9 <*> Procedure Hip Total Anterior Approach 10 <+> Time Out 10 <*> Procedure Hip Total Anterior Approach 07/15/18 09:35:33 Drywall Hanger Framer: KARLOS Modifier: KARLOS 1 <+> Time Out [...] Procedure Hip Total Anterior Approach 07/15/18 08:26:33 Drywall Hanger Framer: KARLOS Modifier: KARLOS 7 <+> Time Out 7 <*> Procedure Hip Total Anterior Approach 9 <*> Time In 07/15/18 07:28:00 9 <*> Procedure Hip Total Anterior Approach 07/15/18 08:01:40 Drywall Hanger Framer: KARLOS Modifier: KARLOS 1 <*> Case Attendee DEREK DURAN MD-ORKevin 1 <*> Role Performed Surgeon/Proceduralist, First 1 <*> Time In 07/15/18 07:28:00 1 <*> Procedure Hip Total Anterior Approach 2 <*> Case Attendee Martha Torrez, RN 2 <*> Role Performed Intellectual Property Counsel, First 2 <*> Time In 07/15/18 07:28:00 [...] Approach 5 <*> Case Attendee Deedee Brown, Maintenance Man 5 <*> Role Performed Assistive Personnel 5 <*> Time In 07/15/18 07:28:00 5 <*> Procedure Hip Total Anterior Approach 6 <*> Case Attendee CLARITZA VEGAS, CSA 6 <*> Role Performed Benefits Specialist Recruiter, First 6 <*> Time In 07/15/18 07:28:00 6 <*> Procedure Hip Total Anterior Approach 7 <*> Case Attendee MAHAMED BE, MIGUELINA 7 <*> Role Performed Physician legal document assistant 7 <*> Time In 07/15/18 07:28:00 7 <*> Procedure Hip Total Anterior Approach 8 <*> Case Attendee OTHER, ATTENDEE 8 <*> Role Performed Vendor 8 <*> Time In 07/15/18 07:28:00 8 <*> Procedure Hip Total Anterior Approach 8 <-> Other Attendee JER DIXON 9 <*> Case Attendee Aysha Brooks, Animal Nursery Worker 9 <*> Role Performed Sweatband Cutting Machine Operator 9 <*> Time In 07/15/18 07:28:00 9 <*> Procedure Hip Total Anterior Approach 10 <*> Case Attendee CELSO QUISPE CRNA 10 <*> Role Performed INSTRUCTIONAL DESIGN SPECIALIST/Nurse Seed Sales Manager 10 <+> Time In 10 <*> Procedure Hip Total Anterior Approach 10 <+> Other Attendee 07/15/18 07:52:23 Drywall Hanger Framer: KARLOS Modifier: KARLOS 1 <+> Time In [...] [facility] IntraOp Case Times Audit 07/15/18 09:35:17 Drywall Hanger Framer: KARLOS Modifier: JORDYNBLAND <+> 1 Out Room Time <+> 1 Stop Time 07/15/18 09:08:56 Drywall Hanger Framer: KARLOS Modifier: JORDYNBLAND <+> 1 Stop Time 07/15/18 08:01:26 Drywall Hanger Framer: MARTHABLAND Modifier: JORDYNBLAND <+> 1 Start Time [...] SJE IntraOp Counts Verification Audit 07/15/18 08:50:53 Drywall Hanger Framer: KARLOS Modifier: SALENAAND <+> 2 Procedure <+> [...] RN 07/15/18 07:07:36 [facility] IntraOp General Case Paid Search Manager 1 Case Information OR OR 01 E Case Level 1 Room Verified Yes Wound Class I - Clean Specialty SN Orthopedic Anesthesia Type General ASA Class 4 Diagnosis Preop Diagnosis DJD RIGHT HIP Postop Same As Preop No Postop Diagnosis DICTATED BY MD Last Modified By: Martha Torrez RN 07/15/18 07:53:11 [facility] IntraOp General Case Data Audit 07/15/18 07:53:11 Drywall Hanger Framer: KARLOS Modifier: KARLOS <+> 1 ASA Class <+> 1 Preop Diagnosis [facility]JE IntraOp Implant Log Entry 1 Entry 2 Entry 3 Type Implant (Synthetic) Implant (Synthetic) Implant (Synthetic) Implant Log Implant Type Hardware Hardware Hardware Tissue Implant Type Implant SHELL ACET LOGICAL 48MM LNER LGCL CP 50MM STEM HIP COXA CLLR Identification -[id number] ORIGIN [id number] Description Implant Quantity 1 1 1 Implant Site RIGHT HIP RIGHT HIP RIGHT HIP Implant Identification Model Number Implant Identification Serial Number Implant [id number] Identification Lot Number Implant Paxeon Reconstruction Paxeon Reconstruction Paxeon Reconstruction Identification Cost Consultant Name: Implant [id number] Identification Catalog Number Implant Size Implant Has an Yes Yes Yes Expiration Date Implant Expiration 06/10/23 02/08/23 04/11/23 Date Wasted Radioactive Material Time Implanted Tissue Implant Continue for Tissue Implant Documentation Tissue Identification Number Graft Prep Per Cost Consultant Instructions: Tissue Preparation Method: Reconstitution Solution: Reconstitution Solution Lot Number Reconstitution Solution Expiration Date: Thawing Solution Thawing Solution Lot Number Thawing Solution Expiration Date Preparation Materials, Other Preparation Materials, Other Lot Number Preparation Materials, Other Expiration Date Tissue Prepared/Processed By Cost Consultant Paperwork Completed Implant Type Comment Last Modified By: Martha Torrez RN Bland, Jordyn A, RN Bland, Jordyn A, RN 07/15/18 08:26:09 07/15/18 08:26:09 07/15/18 08:47:20 Entry 4 Type Implant (Synthetic) Implant Log Implant Type Hardware Tissue Implant Type Implant HEAD FEM CERC [id number] 32MM Identification -[id number] Description Implant Quantity 1 Implant Site RIGHT HIP Implant Identification Model Number Implant Identification Serial Number Implant [id number] Identification Lot Number Implant Paxeon Reconstruction Identification Cost Consultant Name: Implant [id number] Identification Catalog Number Implant Size Implant Has an Yes Expiration Date Implant Expiration 04/11/23 Date Wasted Radioactive Material Time Implanted Tissue Implant Continue for Tissue Implant Documentation Tissue Identification Number Graft Prep Per Cost Consultant Instructions: Tissue Preparation Method: Reconstitution Solution: Reconstitution Solution Lot Number Reconstitution Solution Expiration Date: Thawing Solution Thawing Solution Lot Number Thawing Solution Expiration Date Preparation Materials, Other Preparation Materials, Other Lot Number Preparation Materials, Other Expiration Date Tissue Prepared/Processed By Cost Consultant Paperwork Completed Implant Type Comment Last Modified By: Martha Torrez RN 07/15/18 08:47:20 [facility] IntraOp Implant Log Audit 07/15/18 08:47:20 Drywall Hanger Framer: KARLOS Modifier: KARLOS <+> 3 Implant Identification Description <+> 3 Implant Identification Lot Number <+> 3 Implant Identification Cost Consultant Name: <+> 3 Implant Expiration Date <+> 3 Implant Identification Catalog Number <+> 4 Implant Identification Description <+> 4 Implant Identification Lot Number <+> 4 Implant Identification Cost Consultant Name: <+> 4 Implant Expiration Date <+> 4 Implant Identification Catalog Number 07/15/18 08:26:09 Drywall Hanger Framer: KARLOS Modifier: KARLOS <+> 1 Implant Identification Description <+> 1 Implant Identification Lot Number <+> 1 Implant Identification Cost Consultant Name: <+> 1 Implant Expiration Date <+> 1 Implant Identification Catalog Number <+> 2 Implant Identification Description <+> 2 Implant Identification Lot Number <+> 2 Implant Identification Cost Consultant Name: <+> 2 Implant Expiration Date <+> 2 Implant Identification Catalog Number 07/15/18 07:54:53 Drywall Hanger Framer: KARLOS Modifier: KARLOS <+> 3 Implant Site [...] vancomycin 1Gm vial - ANESTHETIC 1000MG/10 ML [id number] COCKTAIL-ROGER [id number] Combo Med List Time Administered Route of [...] Intra Op Sign Out Audit 07/15/18 09:35:26 Drywall Hanger Framer: KARLOS Modifier: KARLOS <+> 1 RN Sign [...] SJE IntraOp Surgical Procedures Audit 07/15/18 09:08:57 Drywall Hanger Framer: KARLOS Modifier: KARLOS <+> 1 Start <+> [...] SJE IntraOp Time Out Audit 07/15/18 08:01:30 Drywall Hanger Framer: KARLOS Modifier: KARLOS 1 <+> Time Out Pause Time 1 <*> Procedure to be Performed Hip Total Anterior Approach 07/15/18 07:56:31 Drywall Hanger Framer: KARLOS Modifier: KARLOS 1 <+> Beta Pat Administered 1 <*> Procedure to be Performed Hip Total Anterior Approach SJE IntraOp X-Ray and Images Entry 1 X-Ray/Imaging Type Fluoroscopy Fluoroscopy Type C-Arm Site RIGHT HIP Sr Technical Sales Consultant Name Aysha Brooks, Animal Nursery Worker Protective Devices Yes Used Last Modified By: Martha Torrez RN 07/15/18 07:56:43 Case Comments <None> Finalized By: Martha Torrez, RN Document Signatures Signed By: Martha Torrez RN 07/15/18 09:37 documented in this encounter Plan of Treatment Not on file documented as of this encounter Visit Diagnoses Not on filedocumented in this encounter
--- OUTSIDE RECORDS SUMMARY | 2025-01-01 18:48 | XMS_ITS | Encounter Summary ---
Author Organization [employer] ([place], [place], [place], [place]) Address [address] [place] [address] Care Team Providers Care Apparatus Engineering Technologist Name Role Phone Unavailable Primary Care Provider Unavailabl e Encounter Details Date Type Department Care Team (Late st Contact Info) Description 07/15/2018 Transcribed Document [facility] [place] Family Medicine [address] [place] [address] ProviderKristel MD [address] [place] [address] Social History Tobacco Use Types [...] : Right Right UE Active ROM : [facility] Right UE Strength : [facility] Left UE Active ROM : [facility] Left UE Strength : [facility] VERO TAMEZ, PT - 07/15/2018 12:39 EDT [...] VERO TAMEZ, PT - 07/15/2018 12:39 EDT Logistics Coordinator Goals Other PT LTG Grid Goal #1 [...]
--- OUTSIDE RECORDS SUMMARY | 2025-01-01 18:48 | XMS_ITS | Encounter Summary ---
Author Organization [employer] ([place], [place], [place], [place]) Address [address] [place] [address] Care Team Providers Care Warehouse Attendant Name Role Phone Unavailable Primary Care Provider Unavailmorris e Encounter Details Date Type Department Care Team (Late st Contact Info) Description 07/15/2018 Transcribed Document [facility] [place] Family Medicine [address] [place] [address] ProviderKristel MD [address] [place] [address] Social History Tobacco Use Types [...]
--- OUTSIDE RECORDS SUMMARY | 2025-01-01 18:48 | XMS_ITS ---
Care Plan - [facility], [facility] Created on: January 01, 2025 Cindy Braxton : 1945 Sex: Female Author Organization [facility] , [facility] Address [address] [facility] [place] [address] Phone Care Team Providers Care Plasterer Spot Name Role Phone RANDAL ALBARADO MD Primary Care Provider [phone] Bjorn Grande MD Unavailable [phone]
--- OUTSIDE RECORDS SUMMARY | 2025-01-01 18:48 | XMS_ITS | Encounter Summary ---
Author Organization [employer] ([place], [place], [place], [place]) Address [address] [place] [address] Care Team Providers Care Neonatal Intensive Care Unit Nurse Name Role Phone Unavailable Primary Care Provider Unavailabl e Encounter Details Date Type Department Care Team (Late st Contact Info) Description 07/15/2018 Transcribed Document [facility] [place] [address] [place] [address] ProviderKristel MD [address] [place] [address] Social History Tobacco Use [...] home DANA PALMA OTR/L 07/16/2018 10:58 EDT Skilled Nursing Goals, OT Other LTG Grid Goal #1 [...]
--- OUTSIDE RECORDS SUMMARY | 2025-01-01 18:48 | XMS_ITS | Encounter Summary ---
Author Organization [employer] ([place], [place], [place], [place]) Address [address] [place] [address] Care Team Providers Care Cytogenetics Technologist Name Role Phone Unavailable Primary Care Provider Unavailabl e Encounter Details Date Type Department Care Team (Late st Contact Info) Description 07/19/2018 Transcribed Document [facility] [place] Family Medicine [address] [place] [address] ProviderKristel MD [address] [place] [address] Social History Tobacco Use Types [...]
--- OUTSIDE RECORDS SUMMARY | 2025-01-01 18:48 | XMS_ITS | Encounter Summary ---
Author Organization [employer] ([place], [place], [place], [place]) Address [address] [place] [address] Care Team Providers Care Official Court Reporter Name Role Phone Unavailable Primary Care Provider Unavailabl e Encounter Details Date Type Department Care Team (Late st Contact Info) Description 07/15/2018 Transcribed Document [facility] [place] [address] [place] [address] ProviderKristel MD [address] [place] [address] Social History Tobacco Use [...] NIRU AIKEN, PT - 07/16/2018 10:39 EDT Fpc Goals Other PT LTG Grid Goal #1 [...] EDT Electronically signed by Tatiana Ponce Conversion Food And Beverage Service Manager Cerner at 06/29/2022 1:43 PM CDT documented in this encounter Plan of Treatment Not on file documented as of this encounter Visit Diagnoses Not on filedocumented in this encounter
--- OUTSIDE RECORDS SUMMARY | 2025-01-01 18:48 | XMS_ITS | Encounter Summary ---
Author Organization [employer] ([place], [place], [place], [place]) Address [address] [place] [address] Care Team Providers Care Metal Casket Assembler Name Role Phone Unavailable Primary Care Provider Unavailabl e Encounter Details Date Type Department Care Team (Late st Contact Info) Description 07/16/2018 Transcribed Document [facility] [place] [facility] [place] [address] ProviderKristel MD [address] [place] [address] Social History Tobacco Use Types [...]
--- OUTSIDE RECORDS SUMMARY | 2025-01-01 18:48 | XMS_ITS | Encounter Summary ---
Author Organization [employer] ([place], [place], [place], [place]) Address [address] [place] [address] Care Team Providers Care Art Historian Name Role Phone Unavailable Primary Care Provider Unavailabl e Encounter Details Date Type Department Care Team (Late st Contact Info) Description 07/15/2018 Transcribed Document [facility] Radiology [address] [place] [address] [place] [address] [place] [address] [address] Social History Tobacco Use Types [...] None. Primary Care Provider RANDAL ALBARADO (MD [facility] Chief Complaint Right hip pain History [...] Medical SVT (supraventricular tachycardia) / SNOMED CT 88288237 / Confirmed Hypertension / SNOMED CT 3648943499 / Confirmed Hypothyroidism / SNOMED CT 82314838 / Confirmed Anxiety disorder / SNOMED CT 293893508 / Confirmed COPD (chronic obstructive pulmonary disease) / SNOMED CT 88308062 / Confirmed Osteoarthritis / SNOMED CT 7601043767 / Confirmed Hyperlipidemia / SNOMED CT 71327864 / Confirmed At risk for sleep apnea / IMO 52700307 / Confirmed, Active Problems (8) Anxiety disorder At risk for sleep apnea COPD (chronic obstructive pulmonary disease) Hyperlipidemia Hypertension Hypothyroidism Osteoarthritis SVT (supraventricular tachycardia) Histories Past Medical History: Active Problems (8) Anxiety disorder At risk for sleep apnea COPD (chronic obstructive pulmonary disease) Hyperlipidemia Hypertension Hypothyroidism Osteoarthritis SVT (supraventricular tachycardia) Family History: Significant for cancer Procedure history: Thyroidectomy (93541172). Tonsillectomy (836938908). Cholecystectomy (95229738). Tubal ligation (196430172). - Spontaneous vaginal delivery. left hip replacment. [...]
--- OUTSIDE RECORDS SUMMARY | 2025-01-01 18:48 | XMS_ITS | Encounter Summary ---
Author Organization [employer] ([place], [place], [place], [place]) Address [address] [place] [address] Care Team Providers Care Inspector Scales Name Role Phone Unavailable Primary Care Provider Unavailabl e Encounter Details Date Type Department Care Team (Late st Contact Info) Description 07/15/2018 Transcribed Document [facility] [place] Family Medicine [address] [place] [address] ProviderKristel MD [address] [place] [address] Social History Tobacco Use Types [...] Policy Numbers : Insurance 1 Health Plan: [email or web address] PPO Policy Number: [id number] Authorization Number: [id number] Insurance Primary Name : [employer] Medicare Authorization Status-Primary : Awaiting callback Authorization Number-Primary : [id number] Authorized Service Begin Date-Primary : 07/15/2018 EDT [...]
--- OUTSIDE RECORDS SUMMARY | 2025-01-01 18:48 | XMS_ITS | Encounter Summary ---
Author Organization [employer] ([place], [place], [place], [place]) Address [address] [place] [address] Care Team Providers Care Waste Management Engineer Name Role Phone Unavailable Primary Care Provider Unavailabl e Encounter Details Date Type Department Care Team (Late st Contact Info) Description 06/28/2018 Transcribed Document [facility] [place] Family Medicine [address] [place] [address] ProviderKristel MD [address] [place], [...]
--- OUTSIDE RECORDS SUMMARY | 2025-01-01 18:48 | XMS_ITS | Clinical Summary ---
Author Organization [employer] ([place], [place], [place], [place]) Address [address] [place] [address] Care Team Providers Care Warehouse Stocker Name Role Phone Unavailable Primary Care Provider [...] Date Bryson rded Speak language other than Cypriot at home Not on file 03/30/2023 Want [...]
--- OUTSIDE RECORDS SUMMARY | 2025-01-01 18:48 | XMS_ITS | Clinical Summary ---
Author Organization [facility] , [facility] Address [address] [address] Phone Care Team Providers Care Program Consultant Name Role Phone RANDAL ALBARADO MD Primary Care Provider [phone] Harjinder GARBER, Bjorn Naranjo Unavailable [phone] Reason for Visit and Chief Complaint BRACE FITTING Problems Includes: Problems addressed during this encounter and other active Problems All Visits Onset Date Resolved Date Provider Condition S tatus Joint Pain Hip Left 11/10/2021 Masood basilio PA-C Active Last Documented On 2 9:30AM ; [facility], [facility] Joint Pain Hip Right 10/22/2015 Raúl Merritt MD Active Last Documented On 6 12:14PM ; [facility], [facility] Plan of Treatment No Plan of [...] On 2 10:28AM By Alem Aden ; [facility], [facility] ALPRAZolam 0.5 MG Oral Tablet 11/10/2021 Provider: Diagnosis: Last Documented On 2 10:28AM By Alem Aden ; [facility], [facility] Diclofenac Sodium 75 MG Oral Tablet Delayed Release Provider: Diagnosis: Last Documented On 2 10:29AM By Alem Aden ; [facility] Nadolol 40 MG Oral Tablet 09/27/2021 Provider: Sa yogi Cortés APRN Diagnosis: Last Documented On 2 10:29AM By Alem Aden ; [facility] Dicyclomine HCl 20 MG Oral Tablet 09/15/2021 Provide r: Nae Cortés APRN Diagnosis: Last Documented On 2 10:29AM By Alem Aden ; [facility] Citalopram Hydrobromide 20 M G Oral Tablet 08/12/2021 Provider: Nae jones APRN Diagnosis: Last Documented On 2 10:29AM By Alem Aden ; [facility], [facility] Losartan Potassium 100 MG Or al Tablet 07/14/2021 Provider: Nae jones APRN Diagnosis: Last Documented On 2 10:29AM By Alem Aden ; [facility] Furosemide 20 MG Oral Tablet 05/03/2021 Provider: Nae Cortés APRN Diagnosis: Last Documented On 2 10:29AM By Alem Aden ; [facility], [facility] Medications Administered Includes: Administered Medications from [...] Active Last Documented On 2 9:30AM ; [facility] Diclofenac Potassium Allergy 04/22/2018 Active Last Documented On 2 9:30AM ; [facility], [facility] Antihistamine Decongestant Allergy 04/22/2018 Active Last Documented On 2 9:30AM ; [facility], [facility] Encounters Encounter Provider Location Date Check-In Time Check-Out Time Diagnosis BRACE FITTING Raúl Merritt MD [facility] 9 9:15AM 11:59PM Insurance Includes: Active Insurance Policies Plan Name Member ID Group # Subscriber Relationship Effect arcelia Dates 1 - [employer] [id number] Cindy Vicenta Fox Self 01/06 - Unknown Clinical Notes Includes: Clinical Notes from this encounter No Clinical Notes Recorded
--- OUTSIDE RECORDS SUMMARY | 2025-01-01 18:48 | XMS_ITS | Encounter Summary ---
Author Organization [employer] ([place], [place], [place], [place]) Address [address] [place] [address] Care Team Providers Care International Guest Coordinator Name Role Phone Unavailable Primary Care Provider Unavailabl e Encounter Details Date Type Department Care Team (Late st Contact Info) Description 07/15/2018 Transcribed Document [facility] [place] Family Medicine [address] [place] [address] ProviderKristel MD [address] [place] [address] Social History Tobacco Use Types [...] Obtained From : Patient Primary Language : Amharic Preferred Communication Mode : Verbal Communication Barrier [...] Level : 47 or > High Risk [place] Fall Interventions : Adequate lighting, Bed in [...] : Refuses FDA approved medications Implant/Device Type, Rigger Up and Model : left hip replacement, poss. [...] Updated: 06/28/2018 10:15:29 EDT by CLARISSA GUERRERO, LISANDOR) Height and Weight, Clinical Dosing Height Source : Stated Height Entry Format : [place] Height, Feet : 5 ft(Converted to: 152 cm, 60 Inch) Height, Inches : 1 Inch(Converted to: 0 ft 1 Inch, 2.54 cm) Clinical Height : 154.94 cm Weight Source : Standing scale Weight Entry Format : [place] Clinical Dosing Weight : 63.18 kg Weight, Pounds : 139 lb Body Surface Area (BSA) : 1.62 m2 Body Mass Index : 26.3 kg/m2 (HI) [place] Body Weight : 47 kg Nilda Claros [...] EDT Electronically signed by Rosario, Tatiana Conversion Events And Promotions Assistant Cerner at 06/29/2022 1:19 PM CDT documented in this encounter Plan of Treatment Not on file documented as of this encounter Visit Diagnoses Not on filedocumented in this encounter
--- OUTSIDE RECORDS SUMMARY | 2025-01-01 18:48 | XMS_ITS | Encounter Summary ---
Author Organization [employer] ([place], [place], [place], [place]) Address [address] [place] [address] Care Team Providers Care Commercial Artist Name Role Phone Unavailable Primary Care Provider Grady e Encounter Details Date Type Department Care Team (Late st Contact Info) Description 07/15/2018 Transcribed Document [facility] [place] [address] [place] [address] ProviderKristel MD [address] [place] [address] Social History Tobacco Use Types [...] form. Electronically signed by Tatiana Ponce Conversion Vertical Contour Band Saw Operator Cerner at 06/30/2022 11:59 AM CDT documented in this encounter Plan of Treatment Not on file documented as of this encounter Visit Diagnoses Not on filedocumented in this encounter
--- OUTSIDE RECORDS SUMMARY | 2025-01-01 18:48 | XMS_ITS | Encounter Summary ---
Author Organization [employer] ([place], [place], [place], [place]) Address [address] [place] [address] Care Team Providers Care Clay Dry Press Operator Name Role Phone Unavailable Primary Care Provider Unavailabl e Encounter Details Date Type Department Care Team (Late st Contact Info) Description 07/15/2018 Transcribed Document [facility] [place] Family Medicine [address] [place] [address] ProviderKristel MD [address] [place] [address] Social History Tobacco Use Types [...]
--- OUTSIDE RECORDS SUMMARY | 2025-01-01 18:48 | XMS_ITS | Encounter Summary ---
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 Height and Weight, Clinical Dosing Height Source : Stated Height Entry Format : [place] Height, Feet : 5 ft(Converted to: 152 cm, 60 Inch) Height, Inches : 1 Inch(Converted to: 0 ft 1 Inch, 2.54 cm) Clinical Height : 154.94 cm Weight Source : Standing scale Weight Entry Format : [place] Clinical Dosing Weight : 63.18 kg Weight, Pounds : 139 lb Body Surface Area (BSA) : 1.62 m2 Body Mass Index : 26.3 kg/m2 (HI) [place] Body Weight : 47 kg Earlene Sheriff 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
--- OUTSIDE RECORDS SUMMARY | 2025-01-01 18:48 | XMS_ITS | Encounter Summary ---
Author Organization [employer] ([place], [place], [place], [place]) Address [address] [place] [address] Care Team Providers Care Dope Maintenance Worker Name Role Phone Unavailable Primary Care Provider Unavailabl e Encounter Details Date Type Department Care Team (Late st Contact Info) Description 07/15/2018 Transcribed Document [facility] [place] Family Medicine [address] [place] [address] ProviderKristel MD [address] [place] [address] Social History Tobacco Use Types [...] LABOY /Sex: 1945 Female Med Rec #: [id number] Physician: DEREK DURAN MD-ORT Financial #: [id number] Pt. Type: I Room/Bed: 513/1 Admit/Disch: 07/15/18 04:51:00 [place] [facility] [place] Times Entry 1 In Preop 07/15/18 05:40:00 Ready for Holding n/a Room Patient Ready for 07/15/18 07:12:00 Surgery Patient Out of Preop 07/15/18 07:25:00 Patient Out of n/a Holding Room Last Modified By: CHADWICK CHAN 07/15/18 12:29:59 SJE PreOp Case Times Audit 07/15/18 12:29:59 Recreation Aide: MAY Modifier: CATLETDD <+> 1 Patient Out of Preop Finalized By: CHADWICK CHAN Document Signatures Signed By: CHADWICK CHAN 07/15/18 12:30 documented in this encounter Plan of Treatment Not on file documented as of this encounter Visit Diagnoses Not on filedocumented in this encounter
--- OUTSIDE RECORDS SUMMARY | 2025-01-01 18:48 | XMS_ITS | Encounter Summary ---
Author Organization [employer] ([place], [place], [place], [place]) Address [address] [place] [address] Care Team Providers Care Ocean Clam Boat Captain Name Role Phone Unavailable Primary Care Provider Unavailmorris e Encounter Details Date Type Department Care Team (Late st Contact Info) Description 07/16/2018 Transcribed Document [facility] [place] Family Medicine [address] [place] [address] ProviderKristel MD [address] [place] [address] Social History Tobacco Use Types [...] Karina Zimmer LPN - 07/16/2018 3:40 EDT Electronically signed by Tatiana Ponce Conversion [employer] Gunsmith Cerner at 06/29/2022 1:43 PM CDT documented in this encounter Plan of Treatment Not on file documented as of this encounter Visit Diagnoses Not on filedocumented in this encounter
--- OUTSIDE RECORDS SUMMARY | 2025-01-01 18:48 | XMS_ITS | Encounter Summary ---
Author Organization [employer] ([place], [place], [place], [place]) Address [address] [place] [address] Care Team Providers Care Ultrasound Technologist Sonographer Name Role Phone Unavailable Primary Care Provider Unavailabl e Encounter Details Date Type Department Care Team (Late st Contact Info) Description 07/16/2018 Transcribed Document [facility] [place] [address] [place] [address] ProviderKristel MD [address] [place] [address] Social History Tobacco Use Types [...] Kristel ProviderMD - 07/16/2018 12:02 [place] [address] CINDY LABOY :1945 Visit Time:07/15/2018 Your Visit Summary Your Care Team Admitting Physician - RONAL ROBERT MD Attending Physician - DEREK DURAN MD-MENDYT Primary Care Physician - RANDAL ALBARADO (REF)MD-[facility] Referring Physician - DEREK DURAN MD-ORT Your Diagnosis S/P total hip arthroplasty Unilateral primary osteoarthritis, right hip, Unilateral primary osteoarthritis, right hip These Are Your Goals I want to mow the yard. Interventions: Work with PT Discharge Vitals Heart Rate 72 Blood Pressure 105/62 What to do next Instructions From Your Care Team [facility], PT WILL NEED TO INFORM HOME HEALTH DIRECTLY OF WHEN SHE WILL CHANGE 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 TO HER OWN HOME [phone] PT HAS ALL NEEDED DME Follow-Up Appointments Follow Up with JAIDEN LEBRON PA-C When 08/26/2018 10:00 AM EDT Comments Appointment has been made Where: [address] [facility] [address] [place] [address]- Follow Up with Follow up with primary [...] Barley. Bulgur wheat. Millet. Bran muffins. Popcorn. [place]send wafer crackers. Vegetables Sweet potatoes. Spinach. Kale. Artichokes. Cabbage. Broccoli. Green peas. Carrots. Squash. Fruits Berries. Pears. Apples. Oranges. Avocados. Prunes and raisins. Dried figs. Meats and Other Protein Sources [place], kidney, christianson, and soy beans. Split peas. [...] gabriel has 11 g of protein. ??? Madelia seeds ??? 1 oz has 5.5 g [...] floor. ??? Place frequently used items in edkg-ey-rbaoq places ??? Keep electrical cables out of [...] ??? Using the bathroom. ??? Using household traveling inventory associate or toxic chemicals. ??? Touching or taking [...] Assistance with quitting is available by contacting 8-224-VKZS-NOW. This is a free resource providing counseling, [...] Be sure to sign up for the [facility] patient portal, which gives you 02/10 access to your medical information ??? including these discharge instructions ??? using your computer, smartphone, or tablet. Just go to [employer] ([employer] to get started. Questions? Call . Test [...] was given the opportunity to ask questions. Patient/Bevel Face Stoner And Polisher Name: Patient/Bevel Face Stoner And Polisher Signature: Relationship to Patient: Clinician/Hospital Bevel Face Stoner And Polisher Signature: Date: documented in this encounter Plan of Treatment Not on file documented as of this encounter Visit Diagnoses Not on filedocumented in this encounter
--- NOTE | 2025-01-01 18:49 | ECG_ITS ---
APPROVED REPORT Exam: Resting ECG HR:74 bpm ECG Measurements Heart Rate 74 AXES CA 219 P 69 QRSd 89 QRS 80 QT 391 T 66 QTc 418 Conclusion SINUS RHYTHM WITH MARKED SINUS ARRHYTHMIA WITH FIRST DEGREE AV BLOCK ABNORMAL ECG UNCONFIRMED REPORT Electronically signed by : MILDRED GONZALES, 01/02/2025 02:05:13
--- OUTSIDE RECORDS SUMMARY | 2025-01-01 18:49 | XMS_ITS | Encounter Summary ---
Author Organization [employer] ([place], [place], [place], [place]) Address [address] [place] [address] Care Team Providers Care Director Game Name Role Phone Unavailable Primary Care Provider Unavailabl e Encounter Details Date Type Department Care Team (Late st Contact Info) Description 06/28/2018 Transcribed Document [facility] [place] Family Medicine [facility] [place] [address] ProviderKristel MD [address] [place] [address] Social History Tobacco Use Types [...] Source : Stated Height Entry Format : [place] Height, Feet : 5 ft(Converted to: 152 cm, 60 Inch) Height, Inches : 1 Inch(Converted to: 0 ft 1 Inch, 2.54 cm) Clinical Height : 154.94 cm Weight Source : Standing scale Weight Entry Format : [place] Clinical Dosing Weight : 65 kg Weight, Pounds : 143 lb Body Surface Area (BSA) : 1.64 m2 Body Mass Index : 27.1 kg/m2 (HI) [place] Body Weight : 47 kg CLARISSA GUERRERO [...] #2 Relationship : daughter Primary Language : Urdu Communication Barrier : None CLARISSA GUERRERO RN [...]
--- OUTSIDE RECORDS SUMMARY | 2025-01-01 18:49 | XMS_ITS | Encounter Summary ---
Author Organization [employer] ([place], [place], [place]) Address [address] [place] [address] Care Team Providers Care Print Producer Name Role Phone Unavailable Primary Care Provider Unavailabl e Encounter Details Date Type Department Care Team (Late st Contact Info) Description 07/16/2018 Transcribed Document [facility] [address] [place] [address] Raj Ching MD [address] [place] [address] Social History Tobacco Use Types Packs/Day [...] Signature: __Cadence perez RN DS Phone #: __[phone] This is a permanent part of the Medical Record documented in this encounter Plan of Treatment Not on file documented as of this encounter Visit Diagnoses Not on filedocumented in this encounter
--- OUTSIDE RECORDS SUMMARY | 2025-01-01 18:49 | XMS_ITS | Encounter Summary ---
Author Organization [facility] Address [address] [place] [address] Care Team Providers Care Drum Printer Name Role Phone Nae Cortés TRAM Primary Care Provider [phone] Encounter Details Date Type Department Care Team (Late st Contact Info) Description 12/06/2023 Orders Only External Location [address] [place] [address] Provider, External Social History Tobacco Use Types [...] [facility] [address] [place] [id number] Sergei Gan MD [address] [place] [id number] 04/17/2025 11:00 AM EST Appointment [facility] [address] [place] [address] documented as of this encounter Procedures Procedure [...] on filedocumented in this encounter Care Teams Drum Printer Relationship Specialty Start Date End Date Nae Cortés APRN [address] [place] [address] PCP - General 09/05/24 documented as of this encounter
--- OUTSIDE RECORDS SUMMARY | 2025-01-01 18:49 | XMS_ITS | Clinical Summary ---
Author Organization [facility] Address [address] [place] [address] Phone Care Team Providers Care Barrel Marker Name Role Phone RANDAL ALBARADO MD Primary Care Provider [phone] Bjorn Grande MD Unavailable [phone] Reason for Referral Date Encounter Description Provider Reason for Referral 11/10/21 Follow Up Masood Brown PA-C Refer ral To Physician Reason for Visit and Chief Complaint The Chief Complaint is: left hip pain Problems Includes: Problems addressed during this encounter and other active Problems Current Visit Onset Date Resolved Date Provider Marck basilio Status Joint Pain Hip Left 11/10/2021 Masood basilio PA-C Active Last Documented On 2 9:30AM ; [facility] Past Visits Onset Date Resolved Date Provider Condition Status Joint Pain Hip Right 10/22/2015 Raúl Merritt MD Active Last Documented On 6 12:14PM ; [facility] Plan of Treatment Fall Risk Assessment: This patient has been identified as a fall risk. Balance/gait along with postural blood pressure, vision and home fall hazards have been assessed. Medications have been reviewed, and recommendations made with regard to contributing factors for future falls. Plan of care: Consideration of vitamin D supplementation along with balance and strength training with consideration for formal physical therapy has been discussed with the patient. - Last Documented On 11/10/2021 1:23PM ; [facility] 1. Hx left total hip arthroplasty 7 years ago, implant appears to be well fixed well-positioned 2. lumbar radiculopathy with possible SI joint pain. Patient has been seen by Dr. Payne's office in [place] and has had multiple rounds of cortisone injection. She has been offered an SI joint fusion as well and has a spinal cord stimulator. At this point patient wishes to return home with her family and discuss further options. If she wishes for second opinion would send referral to Dr. Bjorn Rosas at [facility] for spine work-up of left-sided low back pain and leg - Last Documented On 11/10/2021 1:23PM ; [facility] Instructions to patient Instructions for patient to see pcp for bp Last Documented On 2 9:30AM ; [facility] Intervention and counseling on cessation of tobacco use Last Documented On 2 9:30AM ; [facility] Education and Decision Aids were provided during visit for: Health seminar on smoking ce ssation Last Documented On 2 9:30AM ; [facility] Assessments Includes: Assessments from this encounter Findings History of left total hip arthroplasty, 7 years postop - Last Documented On 11/10/2021 1:23PM ; [facility] left leg radiculopathy as well as left SI joint pain - Last Documented On 11/10/2021 1:23PM ; [facility] Instructions Includes: Instructions from this encounter Instructions to patient Instructions for patient to see pcp for bp Last Documented On 2 9:30AM ; [facility] Intervention and counseling on cessation of tobacco use Last Documented On 2 9:30AM ; [facility] Education and Decision Aids were provided during visit for: Health seminar on smoking ce ssation Last Documented On 2 9:30AM ; [facility] Medical Equipment - Implanted Devices Includes: Current Devices No Medical Equipment Recorded Medications Includes: Medications discussed during this encounter and other current Medications Discontinued / Stopped on this date on 04/22/2018 Metoprolol Tartrate 50MG Oral Tablet Prov ider: Diagnosis: Last Documented On 2 10:28AM By Alem Aden ; [facility] Triamterene-HCTZ 37.5-25MG Oral Capsule P rovider: Diagnosis: Last Documented On 2 10:28AM By Alem Aden ; [facility] Current Medications (continue as prescribed) Levothyroxine Sodium 150 MCG Oral Tablet 11/10/2021 Provider: Diagnosis: Last Documented On 2 10:28AM By Alem Aden ; [facility] ALPRAZolam 0.5 MG Oral Tablet 11/10/2021 Provider: Diagnosis: Last Documented On 2 10:28AM By Alem Aden ; [facility] Diclofenac Sodium 75 MG Oral Tablet Delayed Release Provider: Diagnosis: Last Documented On 2 10:29AM By Alem Aden ; [facility] Nadolol 40 MG Oral Tablet 09/27/2021 Provider: Sa yogi Cortés APRN Diagnosis: Last Documented On 2 10:29AM By Alem Aden ; [facility] Dicyclomine HCl 20 MG Oral Tablet 09/15/2021 Provide r: Nae Cortés APRN Diagnosis: Last Documented On 2 10:29AM By Alem Aden ; [facility] Citalopram Hydrobromide 20 M G Oral Tablet 08/12/2021 Provider: Nae jones APRN Diagnosis: Last Documented On 2 10:29AM By Alem Aden ; [facility] Losartan Potassium 100 MG Or al Tablet 07/14/2021 Provider: Nae jones APRN Diagnosis: Last Documented On 2 10:29AM By Alem Aden ; [facility] Furosemide 20 MG Oral Tablet 05/03/2021 Provider: Nae Cortés APRN Diagnosis: Last Documented On 2 10:29AM By Alem Aden ; [facility] Past Medications on file Colace 100MG Oral Capsule 07/09/2018 - 10/07/2018 Provider: Raúl loja MD Diagnosis: 1-2 tabs daily FOR SURGERY DO NOT FILL UNTIL 07/15/18 Last Documented On 9 11:30AM By Elizabeth Ricardo ; [facility] Dilaudid 2MG Oral Tablet 07/09/2018 - 07/11/2018 Provi mitali: Raúl Merritt MD Diagnosis: 1-2 po q6h prn pain (RESCUE PAIN)FOR SURGERY DO NOT FILL UNTIL 07/15/18 Last Documented On 9 11:30AM By Elizabeth Ricardo ; [facility], [facility] Neurontin 300MG Oral Capsule 07/09/2018 - 10/07/2018 Provider: Raúl loja MD Diagnosis: 1 every bedtime FOR SURGER Y DO NOT FILL UNTIL 07/15/18 Last Documented On 9 11:32AM By Elizabeth Ricardo ; [facility] traMADol HCl 50MG Oral Tablet 07/09/2018 - 07/14/2018 Provider: Raúl loja MD Diagnosis: 1-2 po q6h prn painFOR GREER KIESHA DO NOT FILL UNTIL 07/15/18 Last Documented On 9 11:33AM By Elizaebth Ricardo ; [facility] oxyCODONE HCl 5MG Oral Tablet 07/09/2018 - 07/14/2018 Provider: Raúl loja MD Diagnosis: 1-2 po q6h prn painFOR GREER KIESHA DO NOT FILL UNTIL 07/15/18 Last Documented On 9 11:32AM By Elizabeth Ricardo ; [facility] Acetaminophen 500MG Oral Tablet 07/09/2018 - 08/08/2018 Provider: Raúl Merritt MD Diagnosis: 2 three times a day FOR HOPSON RGERY DO NOT FILL UNTIL 07/15/18 Last Documented On 9 11:30AM By Elizabeth Ricardo ; [facility] Mupirocin 2% External Ointment 06/17/2018 - 06/22/2018 Provider: Raúl loja MD Diagnosis: Apply to nostrils 3 times a day 5 days prior to surgery. Last Documented On 9 2:45PM By Jazlyn Tom ; [facility], [facility] Medications Administered Includes: Administered Medications from this encounter No Administered Medications Recorded Vital Signs Includes: Vital Signs from this encounter Vital Name 11/10/2021 10:03A Blood Pressure Sitting (mmHg) 145/86 Pulse Rate-Sitting (bpm) 36 Height (in) 61 Weight (lb) 130 Body Mass Index (kg/m2) 24.6 Body Surface Area (m2) 1.6 Note: snb Last Documented: On 11/10/2021 10:04A M ; [facility] Results Includes: Results discussed during this encounter No Results Recorded For Specified Dates History of Present Illness Includes: History of Present Illness from this encounter HPI Cindy Braxton is a 76 year old female. - Allergy list reviewed - Problem list reviewed - Medication list reviewed - Medication list reviewed with patient - Patient pain level from 1-10: 8 - Yes, previous treatment. - History of Physical Therapy - History of Home Exercise - History of Injections Social History Description Last Updated Caffeine use 11/10/2021 Last Documented On 2 1:23PM ; [facility] No recent change in diet 11/10/2021 Last Documented On 2 1:23PM ; [facility] Yes, current smoker. 11/10/2021 Last Documented On 2 1:23PM ; [facility] Tobacco use 04/22/2018 Last Documented On 2 9:30AM ; [facility] Smoking status : Current everyday smoker 04/22/2018 Last Documented On 2 9:30AM ; [facility] Current smoker 04/22/2018 Last Documented On 2 9:30AM ; [facility] No recent change in diet 04/22/2018 Last Documented On 2 9:30AM ; [facility] Not exercising regularly 04/22/2018 Last Documented On 2 9:30AM ; [facility] Not using alcohol 04/22/2018 Last Documented On 2 9:30AM ; [facility] Not using drugs 04/22/2018 Last Documented On 2 9:30AM ; [facility] Procedures and Surgical History Includes: Procedures from this encounter Procedures Code Diagnosis Performing Provider Service L ocation Service Date intervention and counseling on cessation of tobacco use 4000F Last Documented On 2 9:30AM ; [facility] use of tobacco assessment performed 1000F Last Documented On 2 10:05AM ; [facility] patient screened for future fall risk: documentation of any fall with injury in past year 1100F Last Documented On 2 10:05AM ; [facility] follow-up visit in one month Last Documented On 2 10:05AM ; [facility] referral to physician Last Documented On 2 10:05AM ; [facility] Clinical summary provided to patient Last Documented On 2 9:30AM ; [facility] an X-ray was performed 19113 Last Documented On 2 10:30AM ; [facility] an MRI was performed 80174 Last Documented On 2 10:30AM ; [facility] Surgical History Last Updated History of History of Gallbladder 2021 Last Documented On 2 1:23PM ; [facility] History of total hip replacement 019 Last Documented On 2 9:30AM ; [facility] Medical History Includes: Medical History addressed during this encounter Description Last Updated History of arthritis 11/10/2021 Last Documented On 2 1:23PM ; [facility] History of diverticulitis of colon 11/10 Last Documented On 2 1:23PM ; [facility] History of History of Emphysema 11/11/19 22 Last Documented On 2 1:23PM ; [facility] History of Hypertension 11/10/2021 Last Documented On 2 1:23PM ; [facility] History of Irregular Heartbeat 2 Last Documented On 2 1:23PM ; [facility] History of Thyroid Disease 11/10/2021 Last Documented On 2 1:23PM ; [facility] No recent immunization for flu 2 Last Documented On 2 1:23PM ; [facility] Recent immunization for pneumococcal pne umonia 2020 11/10/2021 Last Documented On 2 1:23PM ; [facility] cataracs 04/22/2018 Last Documented On 2 9:30AM ; [facility] Arthritic joint problems 04/22/2018 Last Documented On 2 9:30AM ; [facility] Gallbladder disease 04/22/2018 Last Documented On 2 9:30AM ; [facility] History of depression 04/22/2018 Last Documented On 2 9:30AM ; [facility] History of osteoporosis 04/22/2018 Last Documented On 2 9:30AM ; [facility] Family History Includes: Family History addressed during this encounter Description Last Updated Family history of systemic hypertension 11/10/2021 Last Documented On 2 1:23PM ; [facility] Family history of osteoporosis 9 Last Documented On 2 9:30AM ; [facility] Review of Systems Includes: Review of Systems from this encounter Systemic: Not feeling tired. Recent weight loss. No recent weight gain. No edema. Head: No headache and no sinus pain. Eyes: No vision problems, no vision problems, and no glaucomatous visual field defect. Cataracts and Glasses/Contacts. No Glaucoma. Otolaryngeal: Hearing loss. No tinnitus. No nasal symptoms. Cardiovascular: No chest pain or discomfort. Palpitations and Hypertension. No High Cholesterol. Pulmonary: No daytime asthma symptoms and no cough. Chronic cough. No wheezing. Gastrointestinal: No heartburn and no abdominal pain. No Indigestion, no Acid Reflux, no Peptic Ulcer, no GI Stomach Bleed, and no Ulcers. Endocrine: No hot flashes. Muscle weakness. No Diabetes and no Hypothyroid. Hyperthyroid. Hematologic: Easy bleeding and a tendency for easy bruising. No Anemia. Musculoskeletal: Arthritis, lower back pain, soft tissue swelling, and pain localized to one or more joints. Neurological: No dizziness, no convulsions, and no numbness. Psychological: Anxiety. No emotional lability. Depression. No insomnia. Not crying for no reason. Skin: No dry skin. No Ulcers, no Scars, no rash, and no ulcers. Allergic and Immunologic: Complaint of seasonal allergic reaction. reviewed 11/10/21 Mental Status Includes: Mental Status from this encounter Description Anxiety Functional Status Includes: Functional Status from this encounter No Functional Status Recorded Physical Exam Includes: Physical Exam from this encounter Allergies Includes: Active Allergies Substance Type Reaction Onset Date Resolved Date Statu s Ketoprofen Allergy 04/22/2018 Active Last Documented On 2 9:30AM ; [facility] Diclofenac Potassium Allergy 04/22/2018 Active Last Documented On 2 9:30AM ; [facility] Antihistamine Decongestant Allergy 04/22/2018 Active Last Documented On 2 9:30AM ; [facility] Encounters Encounter Provider Location Date Check-In Time Check-Out Time Diagnosis Follow Up Masood Brown PA-C [facility] 2 9:28AM 10:55AM Insurance Includes: Active Insurance Policies Plan Name Member ID Group # Subscriber Relationship Effect arcelia Dates 1 - [employer] [id number] Cindy Braxton Self 01/06 - Unknown Clinical Notes Includes: Clinical Notes from this encounter No Clinical Notes Recorded
--- OUTSIDE RECORDS SUMMARY | 2025-01-01 18:49 | XMS_ITS | Encounter Summary ---
Author Organization [employer] ([place], [place], [place], [place]) Address [address] [place] [id number] Care Team Providers Care Director Of Event Management Name Role Phone Unavailable Primary Care Provider Unavailmorris e Encounter Details Date Type Department Care Team (Late st Contact Info) Description 07/16/2018 Transcribed Document [facility] Family Medicine [address] [place] [address] ProviderKristel MD [address] [place] [address] Social History Tobacco Use Types [...] Historical ProviderMD - 07/16/2018 2:00 AM CDT Luggage Attendant Details Entered On: 07/16/2018 2:49 EDT Performed [...]
--- OUTSIDE RECORDS SUMMARY | 2025-01-01 18:49 | XMS_ITS | Encounter Summary ---
Author Organization [employer] ([place], [place], [place], [place]) Address [address] [place] [id number] Care Team Providers Care Rag Baler Name Role Phone Unavailable Primary Care Provider Unavailabl e Encounter Details Date Type Department Care Team (Late st Contact Info) Description 07/16/2018 Transcribed Document [facility] Family Medicine [address] [place] [address] ProviderKristel MD [address] [place] [address] Social History Tobacco Use Types [...] form. Electronically signed by Tatiana Ponce Conversion Surface Mount Technology Operator Cerremy at 06/29/2022 1:43 PM CDT documented in this encounter Plan of Treatment Not on file documented as of this encounter Visit Diagnoses Not on filedocumented in this encounter
--- OUTSIDE RECORDS SUMMARY | 2025-01-01 18:49 | XMS_ITS | Encounter Summary ---
Author Organization [employer] ([place], [place], [place], [place]) Address [address] [place] [address] Care Team Providers Care Hydraulic Oil Tool Operator Name Role Phone Unavailable Primary Care Provider Unavailabl e Encounter Details Date Type Department Care Team (Late st Contact Info) Description 06/28/2018 Transcribed Document [facility] [place] [facility] [place] [address] ProviderKristel MD [facility] [place] [address] Social History Tobacco Use Types [...] Hip Pain Primary Care Provider RANDAL ALBARADO (REF)[facility] History of Present Illness This patient [...]
--- OUTSIDE RECORDS SUMMARY | 2025-01-01 18:49 | XMS_ITS | Clinical Summary ---
Author Organization [facility] Address [address] [place] [address] Phone Care Team Providers Care Medical Dosimetrist Name Role Phone RANDAL ALBARADO MD Primary Care Provider [phone] Bjorn Grande MD Unavailable [phone] Reason for Visit and Chief Complaint The Chief Complaint is: right hip pain Problems Includes: Problems addressed during this encounter and other active Problems All Visits Onset Date Resolved Date Provider Condition S tatus Joint Pain Hip Left 11/10/2021 Masood basilio PA-C Active Last Documented On 2 9:30AM ; [facility] Joint Pain Hip Right 10/22/2015 Raúl Merritt MD Active Last Documented On 6 12:14PM ; [facility] Plan of Treatment Overall the patient is pleased with her progress, encouraged further participation in outpatient physical therapy for strengthening and conditioning of the hip musculature. Patient expressed understanding, follow-up one year postop for x- ray and exam - Last Documented On 08/27/2018 11:31AM ; [facility] Instructions to patient Instructions for patient to see pcp for bp Last Documented On 9 10:38AM ; [facility] Intervention and counseling on cessation of tobacco use Last Documented On 9 10:38AM ; [facility] Education and Decision Aids were provided during visit for: Health seminar on smoking ce ssation Last Documented On 9 10:38AM ; [facility] Assessments Includes: Assessments from this encounter Findings 6 weeks status post right anterior approach AYESHA - Last Documented On 08/27/2018 11:31AM ; [facility], [facility] History of left anterior approach AYESHA - Last Documented On 08/27/2018 11:31AM ; [facility], [facility] Instructions Includes: Instructions from this encounter Instructions to patient Instructions for patient to see pcp for bp Last Documented On 9 10:38AM ; [facility], [facility] Intervention and counseling on cessation of tobacco use Last Documented On 9 10:38AM ; [facility], [facility] Education and Decision Aids were provided during visit for: Health seminar on smoking ce ssation Last Documented On 9 10:38AM ; [facility], [facility] Medical Equipment - Implanted Devices Includes: Current Devices No Medical Equipment Recorded Medications Includes: Medications discussed during this encounter and other current Medications Current Medications (continue as prescribed) Levothyroxine Sodium 150 MCG Oral Tablet 11/10/2021 Provider: Diagnosis: Last Documented On 2 10:28AM By Alem Aden ; [facility], [facility] ALPRAZolam 0.5 MG Oral Tablet 11/10/2021 Provider: Diagnosis: Last Documented On 2 10:28AM By Alem Aden ; [facility], [facility] Diclofenac Sodium 75 MG Oral Tablet Delayed Release Provider: Diagnosis: Last Documented On 2 10:29AM By Alem Aden ; [facility], [facility] Nadolol 40 MG Oral Tablet 09/27/2021 Provider: Sa yogi Cortés APRN Diagnosis: Last Documented On 2 10:29AM By Alem Aden ; [facility], [facility] Dicyclomine HCl 20 MG Oral Tablet 09/15/2021 Provide r: Nae Cortés APRN Diagnosis: Last Documented On 2 10:29AM By Alem Aden ; [facility], [facility] Citalopram Hydrobromide 20 M G Oral Tablet 08/12/2021 Provider: Nae jones APRN Diagnosis: Last Documented On 2 10:29AM By Alem Aden ; [facility] Losartan Potassium 100 MG Or al Tablet 07/14/2021 Provider: Nae jones DRAW FRAME OPERATOR Diagnosis: Last Documented On 2 10:29AM By Alem Aden ; [facility] Furosemide 20 MG Oral Tablet 05/03/2021 Provider: Nae Cortés APRN Diagnosis: Last Documented On 2 10:29AM By Alem Aden ; [facility], [facility] Past Medications on file Colace 100MG Oral Capsule 07/09/2018 - 10/07/2018 Provider: Raúl loja MD Diagnosis: 1-2 tabs daily FOR SURGERY DO NOT FILL UNTIL 07/15/18 Last Documented On 9 11:30AM By Elizabeth Ricardo ; [facility], [facility] Dilaudid 2MG Oral Tablet 07/09/2018 - 07/11/2018 Provi mitali: Raúl Merritt MD Diagnosis: 1-2 po q6h prn pain (RESCUE PAIN)FOR SURGERY DO NOT FILL UNTIL 07/15/18 Last Documented On 9 11:30AM By Elizabeth Ricardo ; [facility], [facility] Neurontin 300MG Oral Capsule 07/09/2018 - 10/07/2018 Provider: Raúl loja MD Diagnosis: 1 every bedtime FOR SURGER Y DO NOT FILL UNTIL 07/15/18 Last Documented On 9 11:32AM By Elizabeth Ricardo ; [facility], [facility] traMADol HCl 50MG Oral Tablet 07/09/2018 - 07/14/2018 Provider: Raúl loja MD Diagnosis: 1-2 po q6h prn painFOR GREER KIESHA DO NOT FILL UNTIL 07/15/18 Last Documented On 9 11:33AM By Elizabeth Ricardo ; [facility] oxyCODONE HCl 5MG Oral Tablet 07/09/2018 - 07/14/2018 Provider: Raúl loja MD Diagnosis: 1-2 po q6h prn painFOR GREER KIESHA DO NOT FILL UNTIL 07/15/18 Last Documented On 9 11:32AM By Elizabeth Ricardo ; [facility], [facility] Acetaminophen 500MG Oral Tablet 07/09/2018 - 08/08/2018 Provider: Raúl Merritt MD Diagnosis: 2 three times a day FOR HOPSON RGERY DO NOT FILL UNTIL 07/15/18 Last Documented On 9 11:30AM By Elizabeth Ricardo ; [facility], [facility] Mupirocin 2% External Ointment 06/17/2018 - 06/22/2018 Provider: Raúl loja MD Diagnosis: Apply to nostrils 3 times a day 5 days prior to surgery. Last Documented On 9 2:45PM By Jazlyn Tom ; [facility], [facility] Medications Administered Includes: Administered Medications from this encounter No Administered Medications Recorded Vital Signs Includes: Vital Signs from this encounter Vital Name 08/26/2018 10:38A Blood Pressure Sitting (mmHg) 142/75 Pulse Rate-Sitting (bpm) 67 Height (in) 61 Weight (lb) 145 Body Mass Index (kg/m2) 27.4 Body Surface Area (m2) 1.6 Note: rj Last Documented: On 08/26/2018 10:39A M ; [facility], [facility] Results Includes: Results discussed during this encounter No Results Recorded For Specified Dates History of Present Illness Includes: History of Present Illness from this encounter HPI Cindy Braxton is a 73 year old female. - Medication list reviewed with patient. Social History Description Last Updated No caffeine use 11/10/2021 Last Documented On 9 10:37AM ; [facility] Tobacco use 04/22/2018 Last Documented On 9 10:37AM ; [facility] Smoking status : Current everyday smoker 04/22/2018 Last Documented On 9 10:37AM ; [facility] Current smoker 04/22/2018 Last Documented On 9 10:37AM ; [facility] No recent change in diet 04/22/2018 Last Documented On 9 10:37AM ; [facility] Not exercising regularly 04/22/2018 Last Documented On 9 10:37AM ; [facility] Not using alcohol 04/22/2018 Last Documented On 9 10:37AM ; [facility] Not using drugs 04/22/2018 Last Documented On 9 10:37AM ; [facility], [facility] Procedures and Surgical History Includes: Procedures from this encounter Procedures Code Diagnosis Performing Provider Service L ocation Service Date intervention and counseling on cessation of tobacco use 4000F Last Documented On 9 10:38AM ; [facility], [facility] Clinical summary provided to patient Last Documented On 9 10:38AM ; [facility], [facility] Surgical History Last Updated History of total hip replacement 019 Last Documented On 9 10:37AM ; [facility], [facility] Medical History Includes: Medical History addressed during this encounter Description Last Updated cataracs 04/22/2018 Last Documented On 9 10:37AM ; [facility], [facility] Arthritic joint problems 04/22/2018 Last Documented On 9 10:37AM ; [facility], [facility] Gallbladder disease 04/22/2018 Last Documented On 9 10:37AM ; [facility], [facility] History of depression 04/22/2018 Last Documented On 9 10:37AM ; [facility], [facility] History of osteoporosis 04/22/2018 Last Documented On 9 10:37AM ; [facility], [facility] Family History Includes: Family History addressed during this encounter Description Last Updated Family history of osteoporosis 9 Last Documented On 9 10:37AM ; [facility], [facility] Review of Systems Includes: Review of Systems from this encounter Systemic: Not feeling tired (fatigue), no recent weight loss, and no recent weight gain. No edema. Head: No headache and no sinus pain. Eyes: Vision problems. No vision problems and no glaucomatous visual field defect. Otolaryngeal: No hearing loss and no tinnitus. No nasal symptoms. Cardiovascular: No chest pain or discomfort. Palpitations. Pulmonary: No daytime asthma symptoms, no cough, and no chronic cough. No wheezing. Gastrointestinal: No heartburn and no abdominal pain. Endocrine: No hot flashes and no muscle weakness. Hematologic: No easy bleeding. A tendency for easy bruising. Musculoskeletal: Lower back pain. No soft tissue swelling. Pain localized to one or more joints. Neurological: No dizziness, no convulsions, and no numbness. Psychological: No anxiety, no emotional lability, no depression, and no insomnia. Not crying for no reason. Skin: No dry skin, no rash, and no ulcers. Allergic and Immunologic: Complaint of seasonal allergic reaction. Mental Status Includes: Mental Status from this encounter Description No anxiety Functional Status Includes: Functional Status from this encounter No Functional Status Recorded Physical Exam Includes: Physical Exam from this encounter Allergies Includes: Active Allergies Substance Type Reaction Onset Date Resolved Date Statu s Ketoprofen Allergy 04/22/2018 Active Last Documented On 2 9:30AM ; [facility], [facility] Diclofenac Potassium Allergy 04/22/2018 Active Last Documented On 2 9:30AM ; [facility] Antihistamine Decongestant Allergy 04/22/2018 Active Last Documented On 2 9:30AM ; [facility], [facility] Encounters Encounter Provider Location Date Check-In Time Check-Out Time Diagnosis Post Op Raúl Merritt MD [facility] 08/27/19 19 10:15AM 11:13AM Insurance Includes: Active Insurance Policies Plan Name Member ID Group # Subscriber Relationship Effect arcelia Dates 1 - [employer] [id number] Cindy Braxton Self 01/06 - Unknown Clinical Notes Includes: Clinical Notes from this encounter No Clinical Notes Recorded
--- OUTSIDE RECORDS SUMMARY | 2025-01-01 18:50 | XMS_ITS | Encounter Summary ---
Author Organization Healthcare Address [address] [place] [address] Care Team Providers Care Frozen Yogurt Maker Name Role Phone Nae Cortés TRAM Primary Care Provider [phone] Encounter Details Date Type Department Care Team (Late st Contact Info) Description 12/06/2023 Orders Only External Location [address] [place] [address] Provider, External Social History Tobacco [...] Description 01/16/2025 11:20 AM EST Office Visit [facility] [address] [place] [phone] Sergei Gan MD [address] [place] [phone] 04/17/2025 11:00 AM EST Appointment [facility] [address] [place] [address] documented as of this encounter [...] on filedocumented in this encounter Care Teams Frozen Yogurt Maker Relationship Specialty Start Date End Date Nae Cortés APRN [facility] [place] [address] PCP - General 09/05/24 documented as of this encounter
--- OUTSIDE RECORDS SUMMARY | 2025-01-01 18:50 | XMS_ITS | Encounter Summary ---
Author Organization [employer] ([place], [place], [place], [place]) Address [address] [place] [address] Care Team Providers Care Bridge Leverman Name Role Phone Unavailable Primary Care Provider Unavailabl e Encounter Details Date Type Department Care Team (Late st Contact Info) Description 07/16/2018 Transcribed Document [facility] Radiology [address] [place] [address] Ronal Robert MD [address] [place] [address] Social History Tobacco Use Types Packs/Day [...] tab QHS Primary Care Provider RANDAL ALBARADO (REF)[facility] Time spent 35 minutes documented in this encounter Plan of Treatment Not on file documented as of this encounter Visit Diagnoses Not on filedocumented in this encounter
--- OUTSIDE RECORDS SUMMARY | 2025-01-01 18:50 | XMS_ITS | Encounter Summary ---
Author Organization [employer] ([place], [place], [place], [place]) Address [address] [place] [address] Care Team Providers Care Government Employee Name Role Phone Unavailable Primary Care Provider Unavailabl e Encounter Details Date Type Department Care Team (Late st Contact Info) Description 07/16/2018 Transcribed Document [facility] [place] Medicine [address] [place] [address] ProviderKristel MD [address] [place] [address] Social History Tobacco Use Types [...] 07/16/2018 9:54 EDT by NAYA MINOR Care Management-Last Code Striper Care Management Progress Note Discharge Arrangements : [...] Acute Providers : Yes MILY, NAYA, Care Management-Last Code Striper - 07/16/2018 9:54 EDT Electronically signed by Rosario, [facility] Conversion Director Industrial Nursing Cerner at 06/29/2022 1:33 PM CDT documented in this encounter Plan of Treatment Not on file documented as of this encounter Visit Diagnoses Not on filedocumented in this encounter
--- OUTSIDE RECORDS SUMMARY | 2025-01-01 18:50 | XMS_ITS | Encounter Summary ---
Author Organization [facility] Address [address] [place] [address] Care Team Providers Care Conveyor Weigher Operator Name Role Phone Nae Cortés APRN Primary Care Provider [phone] Reason for Referral * Consultation (Routine) - Closed Specialty Diagnoses / Procedures Referred By Radha santacruz Referred To Contact Nephrology Diagnoses Elevated BUN Elevated creatine kinase Nae Cortés APRN [address] [address] Phone: tel: fax: [address] [address] Phone: tel: fax: Referral ID Status Reason Start Date Expiration Date V isits Requested Visits Authorized [id number] Closed Specialty Services Required 08/27/2024 02/26/2026 1 1 Encounter Details Date Type Department Care Team (Late st Contact Info) Description 08/27/2024 [facility] [address] [place] [address] Nae Cortés APRN [address] [address] Elevated BUN (Primary Dx); Elevated [...] Office Visit [facility] [address] [facility] [address], [place] [phone] Sergei Gan MD [address] [place] [address] 04/17/2025 11:00 AM EST Appointment [facility] [address] [place] [address] Scheduled Referrals Name Type Priority Associated Diagnoses Order Schedule Ambulatory referral to Nephrology Outpatient Referral Routine Elevated BUN Elevated creatine kinase Expected: 08/27/2024 (Approximate), Expires: 02/28/2026 documented as of this encounter Visit Diagnoses Diagnosis Elevated BUN- Primary Other abnormal blood chemistry Elevated creatine kinase Other nonspecific abnormal serum enzyme levels documented in this encounter Care Teams Conveyor Weigher Operator Relationship Specialty Start Date End Date Nae Cortés APRN [address] [place], [place] [id number] PCP - General 09/05/24 documented as of this encounter
--- OUTSIDE RECORDS SUMMARY | 2025-01-01 18:50 | XMS_ITS | Encounter Summary ---
Author Organization [employer] ([place], [place], [place], [place]) Address [address] [place] [address] Care Team Providers Care Coach Tour Driver Name Role Phone Unavailable Primary Care Provider Unavailabl e Encounter Details Date Type Department Care Team (Late st Contact Info) Description 07/16/[address] [facility] Family Medicine [address] [place] [address] ProviderKristel MD [address] [place] [address] Social History Tobacco Use Types [...] Kristel ProviderMD - 07/16/2018 12:09 [place] [address] CINDY LABOY :1945 Visit Time:07/15/2018 Your Visit Summary Your Care Team Admitting Physician - RONAL ROBERT MD Attending Physician - DEREK DURAN MD-MENDYT Primary Care Physician - RANDAL ALBARADO (REF)MD-[facility] [employer] [facility] Referring Physician - DEREK DURAN MD-ORT Your Diagnosis S/P total hip arthroplasty Unilateral primary osteoarthritis, right hip, Unilateral primary osteoarthritis, right hip These Are Your Goals I want to mow the yard. Interventions: Work with PT Discharge Vitals Heart Rate 72 Blood Pressure 105/62 What to do next Instructions From Your Care Team [facility], PT WILL NEED TO INFORM HOME HEALTH DIRECTLY OF WHEN SHE WILL CHANGE 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 TO HER OWN HOME [phone] PT HAS ALL NEEDED DME Follow-Up Appointments Follow Up with JAIDEN LEBRON PA-C When 08/26/2018 10:00 AM EDT Comments Appointment has been made Where: [address] [address] [place] [address]- Follow Up with Follow up with primary [...] Bulgur wheat. Millet. Bran muffins. Popcorn. [place] wafer crackers. Vegetables Sweet potatoes. Spinach. Kale. Artichokes. Cabbage. Broccoli. Green peas. Carrots. Squash. Fruits Berries. Pears. Apples. Oranges. Avocados. Prunes and raisins. Dried figs. Meats and Other Protein Sources [place], kidney, christianson, and soy beans. Split peas. [...] gabriel has 11 g of protein. ??? [place] seeds ??? 1 oz has 5.5 g [...] floor. ??? Place frequently used items in lccp-lh-pmmeq places ??? Keep electrical cables out of [...] ??? Using the bathroom. ??? Using household jewelry mold maker or toxic chemicals. ??? Touching or taking [...] Assistance with quitting is available by contacting 5-759-TPSE-NOW. This is a free resource providing counseling, [...] computer, smartphone, or tablet. Just go to [employer] to get started. Questions? Call . Test [...] was given the opportunity to ask questions. Patient/Dynamic Balancer Name: Patient/Dynamic Balancer Signature: Relationship to Patient: Clinician/Hospital Dynamic Balancer Signature: Date: documented in this encounter Plan of Treatment Not on file documented as of this encounter Visit Diagnoses Not on filedocumented in this encounter
--- OUTSIDE RECORDS SUMMARY | 2025-01-01 18:50 | XMS_ITS | Encounter Summary ---
Author Organization [employer] ([place], [place], [place], [place]) Address [address] [place] [address] Care Team Providers Care Dispatcher Clerk Name Role Phone Unavailable Primary Care Provider Unavailabl e Encounter Details Date Type Department Care Team (Late st Contact Info) Description 07/16/2018 Transcribed Document [facility] Family Medicine [address] [place] [address] ProviderKristel MD [address] [place] [address] Social History Tobacco Use Types [...]
--- OUTSIDE RECORDS SUMMARY | 2025-01-01 18:50 | XMS_ITS | Encounter Summary ---
Author Organization [employer] ([place], [place], [place], [place]) Address [address] [place] [address] Care Team Providers Care Insulation Professional Name Role Phone Unavailable Primary Care Provider Unavailabl e Encounter Details Date Type Department Care Team (Late st Contact Info) Description 07/16/2018 Transcribed Document [facility] [place] [address] [place] [address] ProviderKristel MD [address] [place] [address] Social History Tobacco Use Types [...] On: 07/16/2018 9:10 EDT by Meche Oshea psychiatric rn Documentation Patient Disposition, General : Discharge Discharge [...] 07/16/2018 9:10 EDT Electronically signed by Rosario [facility] Conversion Account Executive Trainee Cerner at 06/29/2022 1:27 PM CDT documented in this encounter Plan of Treatment Not on file documented as of this encounter Visit Diagnoses Not on filedocumented in this encounter
--- OUTSIDE RECORDS SUMMARY | 2025-01-01 18:50 | XMS_ITS | Clinical Summary ---
Author Organization Healthcare Address [address] [place] [address] Care Team Providers Care Classroom Monitor Name Role Phone Nae Cortés TRAM Primary Care Provider [phone] Allergies Active Allergy Reactions Criticality Noted Date [...] 10 MG 10/16/2024 Act arcelia HYDROcodone-acet aminophen ([place]) 5-325 MG tablet 10/17/2024 Active irbesartan (Avapro) [...] Type Department Care Team Description 10/21/2024 Telephone [facility] Corwith Iraj [address] [facility] [place] [address] Sweta Jones 10/20/2024 11:00 AM EDT Office Visit [facility] Nephrology, Bone & Mineral Metabolism [address] [place] [address] Sergei Gan MD Chronic diastolic heart failure (CMS/HCC) (Primary Dx); Hypervolemia associated with renal insufficiency; Other emphysema (CMS/HCC); Malignant neoplasm of female breast, unspecified estrogen receptor status, unspecified laterality, unspecified site of breast; Acute kidney injury (BETH) with acute tubular necrosis (ATN) (CMS/HCC); Hyponatremia 10/20/2024 Travel 10/17/2024 11:20 AM EDT Office Visit [facility] [address] [place] [address] Bjorn Galarza MD 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 [place] [address] Sweta Jones from Last 3 Months Social History Tobacco Use Types Packs/Day Years Used Date Smoking Tobacco: Every Day Cigarettes 1 53.2 Started: 10/18/1971 Smokeless Tobacco: Never Tobacco Cessation:Ready [...] 11:20 AM EST Office Visit [facility] [address] [place] [address] Sergei Gan MD [address] [place] [address] 04/17/2025 11:00 AM EST Appointment [facility] [address] [place] [address] Health Maintenance Due Date Last Done Comments [facility]-Bone Density Scan 1945 [facility]-Diabetes: Hemoglobin A1C 1945 [facility]-Hepatitis C Screening 1945 [facility]-Medicare Annual Wellness (AWV) 1945 [facility]-Infant/Child/Adol SDOH Screenings 1945 Diabetes: Dental Exam 1956 [facility]- SDOH Screenings 1964 [facility]-Adult SDOH Screenings 1964 [facility]-Zoster Vaccines (1 of 2) 1965 Lung Cancer Screening Shared Decision Making 1996 [facility]-Lung Cancer Screening 1996 [id number] Vaccine (3 - Moderna risk series) 06/16/2020 05/19/2020, 04/21/2020 [facility]-RSV Vaccine: 60+ Years or (1 - 1-dose 75+ series) 2021 [facility]-Influenza Vaccine (#1) 11/10/202401/25, 01/19/2022, 12/29/2019, Additional history exists [facility]-Depression Screening 10/20/2025 10/20/2024, 10/10 [facility]-DTaP,Tdap,and Td Vaccines (2 - Td or [...] on patient's age to complete this [place] [address] [employer] MEDICARE Advance Directives Documents on File Type Date Recorded Patient Pack Changer Expl anation Power of Art Handler 11/12/2024 Power of A ttorney Care Teams Classroom Monitor Relationship Specialty Start Date End Date Nae Cortés APRN [address] [phone] PCP - General 09/05/24
--- OUTSIDE RECORDS SUMMARY | 2025-01-01 18:50 | XMS_ITS | Encounter Summary ---
Author Organization [employer] ([place], [place], [place], [place]) Address [address] [place] [address] Care Team Providers Care Durability Technician Name Role Phone Unavailable Primary Care Provider Unavailabl e Encounter Details Date Type Department Care Team (Late st Contact Info) Description 07/16/2018 Transcribed Document [facility] [place] [address] [place] [address] ProviderKristel MD [address] [place] [address] Social History Tobacco Use Types [...] 07/16/2018 9:54 EDT by NAYA MINOR Care Management-Loading Dock Hand Final Discharge Planning Discharge Arrangements : Patient Post-Acute Information Patient Name: CINDY BRAXTON Gender: Female : [birth year] Age: 73 Years No Post-Acute Placement(s) Listed No Post-Acute Service(s) Listed No Curaspan Referral(s) Listed NAYA MINOR, Care Management-Loading Dock Hand - 07/16/2018 9:54 EDT Accts Placement [facility] Account [facility]1 Service : [facility] Organization : PHYSICAL THERAPY NAYA MINOR Care Management-Loading Dock Hand - 07/16/2018 9:54 EDT Discharge To Care Management : Home Health Services (Related/SOC within 3 days)-06 NAYA MINOR Care Management-Loading Dock Hand - 07/16/2018 9:54 EDT Electronically signed by Rosario [facility] Conversion Slice Cutting Machine Operator Helper Cerner at 06/29/2022 1:31 PM CDT documented in this encounter Plan of Treatment Not on file documented as of this encounter Visit Diagnoses Not on filedocumented in this encounter
--- OUTSIDE RECORDS SUMMARY | 2025-01-01 18:51 | XMS_ITS | Encounter Summary ---
Author Organization [employer] ([place], [place], [place], [place]) Address [address] [place] [address] Care Team Providers Care Occupational Therapy Program Director Name Role Phone Unavailable Primary Care Provider Unavailabl e Encounter Details Date Type Department Care Team (Late st Contact Info) Description 07/16/2018 Transcribed Document [facility] [place] [address] [place] [address] ProviderKristel MD [address] [place] [address] Social History Tobacco Use Types [...]
--- OUTSIDE RECORDS SUMMARY | 2025-01-01 18:51 | XMS_ITS | Encounter Summary ---
Author Organization [employer] ([place], [place], [place], [place]) Address [address] [place] [address] Care Team Providers Care Warehouse Person Name Role Phone Unavailable Primary Care Provider Unavailabl e Encounter Details Date Type Department Care Team (Late st Contact Info) Description 07/16/2018 Transcribed Document [facility] [place] [address] [place] [address] ProviderKristel MD [address] [place] [address] Social History Tobacco Use Types [...] 07/16/2018 9:53 EDT by NAYA MINOR, Care Management-Toe Sewer Initial Assessment I Previously Documented Living Environment : No qualifying data available. Living Situation : Home Patient Lives With : Alone Emergency Contact #1 : Sera Emergency Contact #1 Emergency Contact #1 Relationship : daughter Emergency Contact #2 : Nae Emergency Contact #2 Emergency Contact #2 Relationship : daughter NAYA MINOR, Care Management-Toe Sewer - 07/16/2018 9:53 EDT Initial Assessment II Sensory and Motor Deficits : Other: AYESHA Current Home Treatments and Equipment : Bedside commode, Shower chair, Walker NAYA MINOR, Care Management-Toe Sewer - 07/16/2018 9:53 EDT Discharge Needs I Anticipated Discharge Date : 07/16/2018 EDT Anticipated Discharge To, CM : Home with home health Current Home Treatment/Equipment : Current Home Treatment/Equipment No qualifying data available. NAYA MINOR, Care Management-Toe Sewer - 07/16/2018 9:53 EDT Discharge Needs II Professional Skilled Services : Professional Skilled Services No qualifying data available. Services and Community Resources : Home Health Needs Assistance with Transportation : No Discharge Options Discussed with Patient : [facility] [place] Home Health NAYA MINOR Care Management-Toe Sewer - 07/16/2018 9:53 EDT documented in this encounter Plan of Treatment Not on file documented as of this encounter Visit Diagnoses Not on filedocumented in this encounter
--- OUTSIDE RECORDS SUMMARY | 2025-01-01 18:51 | XMS_ITS | Encounter Summary ---
Author Organization [employer] ([place], [place], [place], [place]) Address [address] [place] [address] Care Team Providers Care Vice Chairman Name Role Phone Unavailable Primary Care Provider Unavailabl e Encounter Details Date Type Department Care Team (Late st Contact Info) Description 07/16/2018 Transcribed Document [facility] [place] [address] [place] [address] ProviderKristel MD [address] [place] [address] Social History Tobacco Use Types [...] EDT Electronically signed by Tatiana Ponce Conversion Volunteer Patient Representative Cerner at 06/29/2022 1:22 PM CDT documented in this encounter Plan of Treatment Not on file documented as of this encounter Visit Diagnoses Not on filedocumented in this encounter
--- OUTSIDE RECORDS SUMMARY | 2025-01-01 18:51 | XMS_ITS | Encounter Summary ---
Author Organization [employer] ([place], [place], [place], [place]) Address [address] [place] [address] Care Team Providers Care Environmental Auditor Name Role Phone Unavailable Primary Care Provider Unavailabl e Encounter Details Date Type Department Care Team (Late st Contact Info) Description 07/16/2018 Transcribed Document [facility] [place] Medicine [address] [place] [address] ProviderKristel MD [address] [place] [address] Social History Tobacco Use Types [...] Barley. Bulgur wheat. Millet. Bran muffins. Popcorn. Arley wafer crackers. Vegetables Sweet potatoes. Spinach. Kale. Artichokes. Cabbage. Broccoli. Green peas. Carrots. Squash. Fruits Berries. Pears. Apples. Oranges. Avocados. Prunes and raisins. Dried figs. Meats and Other Protein Sources [place], kidney, [place], and soy beans. Split peas. [...] cup has 6???7 g of protein. ?? Ógmez (cooked) ??? 3 oz has 24 g [...] gabriel has 11 g of protein. ?? [place] seeds ??? 1 oz has 5.5 g [...] floor. ?? Place frequently used items in hfmo-pn-dufjv places ?? Keep electrical cables out of [...] ?? Using the bathroom. ?? Using household fabrication technician or toxic chemicals. ?? Touching or taking [...]
--- OUTSIDE RECORDS SUMMARY | 2025-01-01 18:51 | XMS_ITS | Clinical Summary ---
Author Organization [facility] , [facility] Address [address] [place] [address] Phone Care Team Providers Care Cmm Inspector Name Role Phone RANDAL ALBARADO MD Primary Care Provider [phone] Bjorn Grande MD Unavailable [phone] Reason for Visit and Chief Complaint The Chief Complaint is: right hip pain Problems Includes: Problems addressed during this encounter and other active Problems All Visits Onset Date Resolved Date Provider Condition S tatus Joint Pain Hip Left 11/10/2021 Masood basilio PA-C Active Last Documented On 2 9:30AM ; [facility] Joint Pain Hip Right 10/22/2015 Raúl Merritt MD Active Last Documented On 6 12:14PM ; [facility] Plan of Treatment Patient comes in today with an early follow-up. It is to note she has not been wearing her CHELLE hose because they cause bruising. I discussed with the patient the risk of having bruising versus the risk of having of deep vein thrombosis/pulmonary and pleasant outweighs the risk of having her topical bruising. I also discussed with the right lower extremity swelling the CHELLE hose would help alleviate this. We discussed briefly also pain management using the medications given to her from surgery. The daughter and family voiced understanding of the above recommendations for 22 hour CHELLE hose used throughout the day as well as the changes to her pain medication dosing. She is to follow-up as scheduled on August 26 - Last Documented On 07/19/2018 9:14AM ; [facility] Instructions to patient Instructions for patient to see pcp for bp Last Documented On 9 8:36AM ; [facility] Intervention and counseling on cessation of tobacco use Last Documented On 9 8:36AM ; [facility] Education and Decision Aids were provided during visit for: Health seminar on smoking ce ssation Last Documented On 9 8:36AM ; [facility] Assessments Includes: Assessments from this encounter Findings Early follow-up after right anterior total hip - Last Documented On 07/19/2018 9:14AM ; [facility] Instructions Includes: Instructions from this encounter Instructions to patient Instructions for patient to see pcp for bp Last Documented On 9 8:36AM ; [facility] Intervention and counseling on cessation of tobacco use Last Documented On 9 8:36AM ; [facility] Education and Decision Aids were provided during visit for: Health seminar on smoking ce ssation Last Documented On 9 8:36AM ; [facility] Medical Equipment - Implanted Devices Includes: Current Devices No Medical Equipment Recorded Medications Includes: Medications discussed during this encounter and other current Medications Current Medications (continue as prescribed) Levothyroxine Sodium 150 MCG Oral Tablet 11/10/2021 Provider: Diagnosis: Last Documented On 2 10:28AM By Alem Aden ; [facility] ALPRAZolam 0.5 MG Oral Tablet 11/10/2021 Provider: Diagnosis: Last Documented On 2 10:28AM By Alem Aden ; [facility] Diclofenac Sodium 75 MG Oral Tablet Delayed Release Provider: Diagnosis: Last Documented On 2 10:29AM By Alem Aden ; [facility] Nadolol 40 MG Oral Tablet 09/27/2021 Provider: Sa yogi Cortés APRN Diagnosis: Last Documented On 2 10:29AM By Alem Aden ; [facility] Dicyclomine HCl 20 MG Oral Tablet 09/15/2021 Provide r: Nae Cortés APRN Diagnosis: Last Documented On 2 10:29AM By Alem Aden ; [facility] Citalopram Hydrobromide 20 M G Oral Tablet 08/12/2021 Provider: Nae jones APRN Diagnosis: Last Documented On 2 10:29AM By Alem Aden ; [facility] Losartan Potassium 100 MG Or al Tablet 07/14/2021 Provider: Nae jones APRN Diagnosis: Last Documented On 2 10:29AM By Alem Aden ; [facility] Furosemide 20 MG Oral Tablet 05/03/2021 Provider: Nae Cortés APRN Diagnosis: Last Documented On 2 10:29AM By Alem Aden ; [facility], [facility] Past Medications on file Colace 100MG Oral Capsule 07/09/2018 - 10/07/2018 Provider: Raúl loja MD Diagnosis: 1-2 tabs daily FOR SURGERY DO NOT FILL UNTIL 07/15/18 Last Documented On 9 11:30AM By Elizabeth Ricardo ; [facility] Dilaudid 2MG Oral Tablet 07/09/2018 - 07/11/2018 Provi mitali: Raúl Merritt MD Diagnosis: 1-2 po q6h prn pain (RESCUE PAIN)FOR SURGERY DO NOT FILL UNTIL 07/15/18 Last Documented On 9 11:30AM By Elizabeth Ricardo ; [facility], [facility] Neurontin 300MG Oral Capsule 07/09/2018 - 10/07/2018 Provider: Raúl loja MD Diagnosis: 1 every bedtime FOR SURGER Y DO NOT FILL UNTIL 07/15/18 Last Documented On 9 11:32AM By Elizabeth Ricardo ; [facility] traMADol HCl 50MG Oral Tablet 07/09/2018 - 07/14/2018 Provider: Raúl loja MD Diagnosis: 1-2 po q6h prn painFOR GREER KIESHA DO NOT FILL UNTIL 07/15/18 Last Documented On 9 11:33AM By Elizabeth Ricardo ; [facility] oxyCODONE HCl 5MG Oral Tablet 07/09/2018 - 07/14/2018 Provider: Raúl loja MD Diagnosis: 1-2 po q6h prn painFOR GREER KIESHA DO NOT FILL UNTIL 07/15/18 Last Documented On 9 11:32AM By Elizabeth Ricardo ; [facility] Acetaminophen 500MG Oral Tablet 07/09/2018 - 08/08/2018 Provider: Raúl Merritt MD Diagnosis: 2 three times a day FOR HOPSON RGERY DO NOT FILL UNTIL 07/15/18 Last Documented On 9 11:30AM By Elizabeth Ricardo ; [facility] Mupirocin 2% External Ointment 06/17/2018 - 06/22/2018 Provider: Raúl loja MD Diagnosis: Apply to nostrils 3 times a day 5 days prior to surgery. Last Documented On 9 2:45PM By Jazlyn Tom ; [facility] Medications Administered Includes: Administered Medications from this encounter No Administered Medications Recorded Vital Signs Includes: Vital Signs from this encounter Vital Name 07/19/2018 08:40A Blood Pressure Sitting (mmHg) 120/76 Pulse Rate-Sitting (bpm) 66 Height (in) 61 Weight (lb) 145 Body Mass Index (kg/m2) 27.4 Body Surface Area (m2) 1.6 Note: rj Last Documented: On 07/19/2018 8:40AM ; [facility] Results Includes: Results discussed during this encounter No Results Recorded For Specified Dates History of Present Illness Includes: History of Present Illness from this encounter CHRISTY Braxton is a 73 year old female. - Medication list reviewed with patient. Social History Description Last Updated No caffeine use 11/10/2021 Last Documented On 9 8:36AM ; [facility] Tobacco use 04/22/2018 Last Documented On 9 8:36AM ; [facility] Smoking status : Current everyday smoker 04/22/2018 Last Documented On 9 8:36AM ; [facility] Current smoker 04/22/2018 Last Documented On 9 8:36AM ; [facility] No recent change in diet 04/22/2018 Last Documented On 9 8:36AM ; [facility] Not exercising regularly 04/22/2018 Last Documented On 9 8:36AM ; [facility] Not using alcohol 04/22/2018 Last Documented On 9 8:36AM ; [facility] Not using drugs 04/22/2018 Last Documented On 9 8:36AM ; [facility] Procedures and Surgical History Includes: Procedures from this encounter Procedures Code Diagnosis Performing Provider Service L ocation Service Date intervention and counseling on cessation of tobacco use 4000F Last Documented On 9 8:36AM ; [facility] Clinical summary provided to patient Last Documented On 9 8:36AM ; [facility] history of an X-ray was performed 29545 Last Documented On 9 8:36AM ; [facility] history of a CT scan was performed 12074 Last Documented On 9 8:36AM ; [facility] Surgical History Last Updated History of total hip replacement 019 Last Documented On 9 8:36AM ; [facility] Medical History Includes: Medical History addressed during this encounter Description Last Updated cataracs 04/22/2018 Last Documented On 9 8:36AM ; [facility] Arthritic joint problems 04/22/2018 Last Documented On 9 8:36AM ; [facility] Gallbladder disease 04/22/2018 Last Documented On 9 8:36AM ; [facility] History of depression 04/22/2018 Last Documented On 9 8:36AM ; [facility] History of osteoporosis 04/22/2018 Last Documented On 9 8:36AM ; [facility] Family History Includes: Family History addressed during this encounter Description Last Updated Family history of osteoporosis 9 Last Documented On 9 8:36AM ; [facility] Review of Systems Includes: Review of [...] Active Last Documented On 2 9:30AM ; [facility] Diclofenac Potassium Allergy 04/22/2018 Active Last Documented On 2 9:30AM ; [facility] Antihistamine Decongestant Allergy 04/22/2018 Active Last Documented On 2 9:30AM ; [facility] Encounters Encounter Provider Location Date Check-In Time Check-Out Time Diagnosis Post Op Raúl Merritt MD [facility] 07/20/19 19 8:30AM 9:14AM Insurance Includes: Active Insurance Policies Plan Name Member ID Group # Subscriber Relationship Effect arcelia Dates 1 - [employer] [id number] Cindy Braxton Self 01/06 - Unknown Clinical Notes Includes: Clinical Notes from this encounter No Clinical Notes Recorded
--- OUTSIDE RECORDS SUMMARY | 2025-01-01 18:51 | XMS_ITS | Encounter Summary ---
Author Organization [employer] ([place], [place], [place], [place]) Address [address] [place] [address] Care Team Providers Care Net Programmer Name Role Phone Unavailable Primary Care Provider Grady peres Encounter Details Date Type Department Care Team (Late st Contact Info) Description 07/16/2018 Transcribed Document [facility] [place] [address] [place] [address] ProviderKristel MD [address] [place] [address] Social History Tobacco Use Types [...]
--- OUTSIDE RECORDS SUMMARY | 2025-01-01 18:51 | XMS_ITS | Encounter Summary ---
Author Organization [employer] ([place], [place], [place], [place]) Address [address] [place] [address] Care Team Providers Care Metal Box Maker Name Role Phone Unavailable Primary Care Provider Unavailabl e Encounter Details Date Type Department Care Team (Late st Contact Info) Description 07/16/2018 Transcribed Document [facility] [place] [address] [place] [address] ProviderKristel MD [address] [place] [address] Social History Tobacco Use Types [...] Kristel ProviderMD - 07/16/2018 12:10 [place] [address] CINDY LABOY :1945 Visit Time:07/15/2018 Your Visit Summary Your Care Team Admitting Physician - RONAL ROBERT MD Attending Physician - DEREK DURAN MD-MENDYT Primary Care Physician - RANDAL ALBARADO (REF)[facility] Referring Physician - DEREK DURAN MD-ORT Your Diagnosis S/P total hip arthroplasty Unilateral primary osteoarthritis, right hip, Unilateral primary osteoarthritis, right hip These Are Your Goals I want to mow the yard. Interventions: Work with PT Discharge Vitals Heart Rate 72 Blood Pressure 105/62 What to do next Instructions From Your Care Team [facility] FOR PHYSICAL THERAPY, PT WILL NEED TO INFORM HOME HEALTH DIRECTLY OF WHEN SHE WILL CHANGE 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 TO HER OWN HOME [phone] PT HAS ALL NEEDED DME Follow-Up Appointments Follow Up with JAIDEN LEBRON PA-C When 08/26/2018 10:00 AM EDT Comments Appointment has been made Where: [address] [address]- Follow Up with Follow up with primary [...] Barley. Bulgur wheat. Millet. Bran muffins. Popcorn. Zenia wafer crackers. Vegetables Sweet potatoes. Spinach. Kale. Artichokes. Cabbage. Broccoli. Green peas. Carrots. Squash. Fruits Berries. Pears. Apples. Oranges. Avocados. Prunes and raisins. Dried figs. Meats and Other Protein Sources [place], kidney, [place], and soy beans. Split peas. [...] gabriel has 11 g of protein. ??? [place] seeds ??? 1 oz has 5.5 g [...] floor. ??? Place frequently used items in dmly-eu-lkuum places ??? Keep electrical cables out of [...] ??? Using the bathroom. ??? Using household dyehouse worker or toxic chemicals. ??? Touching or [...] Assistance with quitting is available by contacting 7-884-LLYE-NOW. This is a free resource providing counseling, [...] Be sure to sign up for the [facility] patient portal, which gives you 02/10 access to your medical information ??? including these discharge instructions ??? using your computer, smartphone, or tablet. Just go to [employer] to get started. Questions? Call . Test [...] was given the opportunity to ask questions. Patient/Cephalometric Tracer Name: Patient/Cephalometric Tracer Signature: Relationship to Patient: Clinician/Hospital Cephalometric Tracer Signature: Date: documented in this encounter Plan of Treatment Not on file documented as of this encounter Visit Diagnoses Not on filedocumented in this encounter
--- OUTSIDE RECORDS SUMMARY | 2025-01-01 18:51 | XMS_ITS | Encounter Summary ---
Author Organization [employer] ([place], [place], [place], [place]) Address [address] [place] [address] Care Team Providers Care Professor Of Surgery Name Role Phone Unavailable Primary Care Provider Grady peres Encounter Details Date Type Department Care Team (Late st Contact Info) Description 07/16/2018 Transcribed Document [facility] [place] Family Medicine [address] [place] [address] ProviderKristel MD [address] [place] [address] Social History Tobacco Use Types [...] Karina Zimmer LPN - 07/16/2018 6:43 EDT Electronically signed by Tatiana Ponce Conversion Water Resources Business Segment Leader Cerner at 06/29/2022 1:25 PM CDT documented in this encounter Plan of Treatment Not on file documented as of this encounter Visit Diagnoses Not on filedocumented in this encounter
--- NOTE | 2025-01-01 19:02 | ED_ITS ---
<Statement entered by Ayleen Stahl DO - 01/03/25 00:31> I was consulted by the JEFFREY, and we discussed the complexity of problems being addressed. I approve the treatment and management plan for this patient's care in the emergency department, thus performing a substantial portion of the medical decision making. Ayleen Stahl DO Discharge Plan Disposition Patient Disposition: Admitted Condition: Fair Clinical Impressions Clinical Impression: Left lower lobe pneumonia, Hyponatremia, Acute kidney injury, Generalized weakness Discharge ED Provider: Ayleen Stahl General Adult HPI General Chief complaint: Weakness Stated complaint: Hypotension/Weakness Time Seen by Provider: 01/01/25 18:50 Mode of Arrival: EMS Source of Information: Patient, Relative and Medical Record Description of Symptoms (Recalled from ER Triage Doc. by RN): Patient states she has been feeling weak since this morning and has been unable to walk. EMS states patient's blood pressure was low when they got to her residence. History of Present Illness HPI narrative: 79-year-old female presents to the emergency department with generalized weakness fatigue, difficulty ambulating that started this morning, patient states when she woke up, she felt very weak in my legs , stayed in bed all day, had some minimal p.o. intake this morning, patient's daughters at the bedside endorse some confusion, patient states that she felt confused , and weak , this morning, daughters did not arrive at the patient's house at around 430, states that she was confused and very lethargic , was very weak , thus prompted EMS call. Patient denies any fever chills chest pain, did have some shortness of breath this morning, patient tells me she think she panicked , does have history of COPD and utilizes 2 L nasal cannula as needed at home, current everyday smoker. Patient denies any abdominal pain, nausea vomiting constipation, no diarrhea no urinary type symptomatology, denies any melena hematochezia or hematemesis, by my examination GCS of 14 at the bedside, some confusion about day initially, oriented to year person and place, other past medical history is consistent with unruptured AAA, with regular vascular surgery follow-up, most recent in October, COPD, CKD, prior history of breast cancer on the , status post lumpectomy, pulmonary hypertension, hypothyroidism, chronic opioid/benzodiazepine therapy, MAUREEN/MDD, HFpEF, lumbar facet disease, osteoarthritis. Initial triage vitals per EMS initially noted some hypotension, was given 1 L IV NS and route, improvement, blood pressure is stable upon my initial assessment of the patient, no tachypnea no tachycardia patient ambulates with assistance at baseline, no saddle anesthesia no urinary bladder or bowel dysfunction no radicular type symptomatology. Please note that above description of symptoms, in this electronic medical record under categorization of recalled from ER triage doctor by RN are reflective of an initial nursing assessment, however, is not reflective of my full history and physical exam that was personally taken and clarified. Consequentially, this preceding description of symptoms, which may include the patient's categorized chief complaint in the EMR, do not reflect my personal clinical impression, and the ultimate description of history of present illness and patient stated complaints should be deferred to this section of the note. Unless stated otherwise or congruent with this section of the note, additional signs, symptoms, or incongruence should be interpreted as inaccurate with my clinical impression. Onset (ago): hour(s) Related Data Home Medications ?Medication ?Instructions ?Recorded ?Confirmed cholecalciferol (vitamin D3) 125 125 mcg PO DAILY 10/1111/21/24 mcg (5,000 unit) capsule alprazolam 0.5 mg tablet 0.5 mg PO QIDP PRN Anxiety 0 11/08/23 11/21/24 citalopram 40 mg tablet 20 mg PO BID 11/08/23 mecobalamin (vitamin B12) 2,500 2,500 mcg PO DAILY 11/21/24 mcg chewable tablet potassium 99 mg tablet 99 mg PO DAILY 11/08/2311/10 dicyclomine 20 mg tablet 20 mg PO BID 06/04/24 bumetanide 1 mg tablet 1 mg PO DAILY 06/23/2411/21 hydrocodone 5 mg-acetaminophen 325 1 tab PO TID PRN 11/21/24 mg tablet levothyroxine 125 mcg tablet 150 mcg PO DAILY 11/04/24 11/21/24 (Levoxyl) Previous Rx's ?Medication ?Instructions ?Recorded diclofenac sodium 75 mg 75 mg PO BID #60 tabs tablet,delayed release empagliflozin 10 mg tablet 10 mg PO DAILY 30 days #30 tabs 11/09/23 (Jardiance) spironolactone 25 mg tablet 25 mg PO DAILY 30 days #30 tabs 11/09/23 irbesartan 75 mg tablet 75 mg PO DAILY #30 tabs 08/02 albuterol sulfate 90 mcg/actuation 2 puff inhalation Q 6H PRN 11/23/23 aerosol inhaler shortness of breath or wheez ing 90 days #8.5 grams ipratropium 0.5 mg-albuterol 3 mg 3 ml inhalation QID PRN shortness 11/23/23 (2.5 mg base)/3 mL nebulization of breath or wheezing 90 days #270 soln mL amlodipine 5 mg tablet 5 mg PO DAILY 30 days #30 ta bs 12/26/23 fluticasone propionate 50 2 spray intranasal DAILY 90 days 01/17/24 mcg/actuation nasal #16 grams spray,suspension (Flonase Allergy Relief) montelukast 10 mg tablet See Rx Instructions .Route 0 10/16/24 .COMPLEX #90 tabs glycopyrrolate 9 mcg-formoterol 2 puff inhalation BID 90 days 12/17/24 4.8 mcg HFA aerosol inhaler #10.7 grams (Bevespi Aerosphere) anastrozole 1 mg tablet See Rx Instructions .Route 1 .COMPLEX #90 tabs Allergies Allergy/AdvReac Type Severity Reaction Status Date / Time doxycycline Allergy Mild Unknown Verified 11/21/24 11:52 allergy reaction adhesive Allergy Unknown Unknown Verified 11/21/24 11:52 allergy reaction Antihistamines - Allergy Unknown Unknown Verified 11/21/24 11:52 Ethylenediamine allergy reaction latex (LATEX) Allergy Unknown Rash Verified 11/21/24 11:52 duloxetine AdvReac Unknown Fatigued Verified 11/21/24 11:52 ketoprofen AdvReac Unknown I-RASH Verified 11/21/24 11:52 amoxicillin AdvReac Diarrhea Verified 11/21/24 11:52 [facility] Disclaimer: The information contained in this section may have been updated after the patient was seen, as this information can be updated by other users. Medical History Abnormal electrocardiogram [ECG] [EKG] Allergic rhinitis COPD mixed type Weight loss Poor appetite Diarrhea Chronic respiratory failure with hypoxia Lung nodule History of smoking 30 or more pack years Tobacco abuse Abdominal aortic aneurysm (AAA) Pulmonary hypertension Pleural effusion (HFpEF) heart failure with preserved ejection fraction Tobacco dependence SVT (supraventricular tachycardia) Hypothyroid Emphysema/COPD Anxiety Hypertension COPD exacerbation Arthritis of hip Surgical History Hx of removal of cyst H/O tubal ligation History of partial mastectomy of left breast History of colonoscopy History of cataract surgery H/O thyroidectomy History of laparoscopic cholecystectomy History of total hip replacement Family History Daughter Cancer lung Social History Smoking Status: Current every day smoker tobacco type: cigarettes packs per day: 1 second hand exposure: Yes alcohol intake: never substance use type: denies use current occupational status: retired Travel in the last 8 weeks?: None household members: spouse housing: house current occupational exposures/hazards: No caffeine: Yes Have you lived/traveled outside [place] in past 30 days?: No Contact w/someone who lives/traveled outside [place] past 30 days?: No Exposure to someone with infectious disease in past 14 days?: No Do you have a fever (greater than 100.4 F or 38 C)?: No Have you tested positive for COVID-19?: No Exposed to someone with COVID-19 in past 14 days?: No Do you have a sore throat?: No Do you have a cough?: No Do you have any weakness?: Yes Do you have any diarrhea?: No Are you experiencing any unusual bleeding?: No Do you have any muscle aches/pain?: No Do you have any abdominal pain?: No Are you experiencing loss of taste or smell?: No Other Medical History Have you received the Flu Vaccine for this season: No Have you received the Pneumonia Vaccine: Yes ROS Obtained: Yes All systems reviewed & no additional complaints except as documented Physical Exam General General appearance: alert and in no apparent distress Comment: GCS of 14, some disorientation to exact today, oriented to year person and place Head Head exam: atraumatic and normocephalic Eye Eye exam: Present PERRL and EOMI ENT ENT exam: Present mucous membranes moist Neck Neck exam: Present normal inspection Chest Chest inspection: Present normal inspection and symmetric chest wall rise Respiratory Respiratory exam: Present normal lung sounds bilaterally; Absent respiratory distress Cardiovascular Cardiovascular exam: Present regular rate and normal rhythm Abdominal Exam Abdominal exam: Present soft; Absent tenderness, guarding or rebound Extremities Exam Extremities exam: Present normal inspection Neurological Exam Neurological exam: Present alert and other (Generalized global weakness noted, patient lifts extremities to command, no gross sensation deficit, no focal neurological deficit.); Absent oriented X3 Psychiatric Psychiatric exam: Present normal affect Skin Skin exam: Present warm and dry Medical Decision Making Medical Records Medical records reviewed: Yes I reviewed the patient's medical records. Screening: Per USPSTF and CDC recommendations, given the prevalence of disease in our region, it is our hospital?s policy to screen for HIV and viral Hepatitis for all patients aged 18 and over and those with ongoing risk factors. Adalid Inquiry Pt receiving controlled substance: No Adalid was queried for this patient: No Vital Signs: 01/01/25 18:44 01/01/25 19:00 01/01/25 19:30 Temperature 97.8 F Temperature Source Oral Pulse Rate Pulse Rate [Right Brachial] 73 Respiratory Rate 16 25 H 22 Blood Pressure 125/72 113/71 Blood Pressure [Right Arm] 107/52 L Blood Pressure Mean Blood Pressure Mean [Right Arm] 70 Blood Pressure Source Blood Pressure Source [Right Arm] Automatic Cuff Blood Pressure Position Blood Pressure Position [Right Arm] Sitting 02 Sat by Pulse Oximetry 96 96 95 Oxygen Delivery Method Room Air Oxygen Flow Rate (LPM) 01/01/25 19:45 01/01/25 20:14 01/01/25 20:15 Temperature Temperature Source Pulse Rate 70 Pulse Rate [Right Brachial] Respiratory Rate 25 H 18 23 Blood Pressure Blood Pressure [Right Arm] Blood Pressure Mean Blood Pressure Mean [Right Arm] Blood Pressure Source Blood Pressure Source [Right Arm] Blood Pressure Position Blood Pressure Position [Right Arm] 02 Sat by Pulse Oximetry Oxygen Delivery Method Oxygen Flow Rate (LPM) 01/01/25 20:30 01/01/25 20:30 01/01/25 20:48 Temperature Temperature Source Pulse Rate 80 77 Pulse Rate [Right Brachial] Respiratory Rate 24 Blood Pressure 99/61 L 99/61 L Blood Pressure [Right Arm] Blood Pressure Mean 72 Blood Pressure Mean [Right Arm] Blood Pressure Source Automatic Cuff Blood Pressure Source [Right Arm] Blood Pressure Position Supine Blood Pressure Position [Right Arm] 02 Sat by Pulse Oximetry 89 L 96 Oxygen Delivery Method Nasal Cannula Oxygen Flow Rate (LPM) 2 01/01/25 21:04 01/01/25 21:15 01/01/25 21:30 Temperature Temperature Source Pulse Rate 75 Pulse Rate [Right Brachial] Respiratory Rate 18 19 13 Blood Pressure 123/77 Blood Pressure [Right Arm] Blood Pressure Mean Blood Pressure Mean [Right Arm] Blood Pressure Source Blood Pressure Source [Right Arm] Blood Pressure Position Blood Pressure Position [Right Arm] 02 Sat by Pulse Oximetry 96 Oxygen Delivery Method Oxygen Flow Rate (LPM) 01/01/25 21:31 01/01/25 21:31 01/01/25 21:45 Temperature Temperature Source Pulse Rate 73 Pulse Rate [Right Brachial] Respiratory Rate 11 L 27 H Blood Pressure 105/61 L Blood Pressure [Right Arm] Blood Pressure Mean 75 Blood Pressure Mean [Right Arm] Blood Pressure Source Blood Pressure Source [Right Arm] Blood Pressure Position Blood Pressure Position [Right Arm] 02 Sat by Pulse Oximetry 97 Oxygen Delivery Method Oxygen Flow Rate (LPM) 01/01/25 21:50 Temperature 97.8 F Temperature Source Oral Pulse Rate 73 Pulse Rate [Right Brachial] Respiratory Rate 27 H Blood Pressure 105/61 L Blood Pressure [Right Arm] Blood Pressure Mean Blood Pressure Mean [Right Arm] Blood Pressure Source Automatic Cuff Blood Pressure Source [Right Arm] Blood Pressure Position Supine Blood Pressure Position [Right Arm] 02 Sat by Pulse Oximetry Oxygen Delivery Method Nasal Cannula Oxygen Flow Rate (LPM) 2 Lab Data Lab results reviewed: Yes I reviewed the patient's lab results. Lab Results 01/01/25 18:40: WBC 12.5 H, RBC 3.75 L, Hgb 11.0 L, Hct 34.5 L, MCV 92.0, MCH 29.3, MCHC 31.9, RDW 13.7, Plt Count 221, MPV 9.3, Neut % (Auto) 88.6 H, Lymph % (Auto) 3.4 L, [place] % (Auto) 6.3, Eos % (Auto) 0.0 L, Baso % (Auto) 0.3, Neut # (Auto) 11.1 H, Lymph # (Auto) 0.4 L, [place] # (Auto) 0.8, Eos # (Auto) 0.0, Baso # (Auto) 0.0, Total Counted 100, Neutrophils % (Manual) 91 H, Lymphocytes % (Manual) 5 L, Monocytes % (Manual) 4, Sodium 124 L, Potassium 4.4, Chloride 90 L , Carbon Dioxide 28, Anion Gap 10.4, BUN 24 H, Creatinine 1.10 H, Estimated Creat Clear 36, Estimated GFR 48 L, Est GFR ( Amer) 58 L, Glucose 151 H, Calcium 8.8, Magnesium 2.0, Total Bilirubin 0.8, AST 34, ALT 28, Alkaline Phosphatase 49, Total Creatine Kinase 73, Troponin I < 0.01, NT-Pro-B Natriuret Pep 1470 H, Total Protein 7.4, Albumin 4.1, Globulin 3.3 H, Albumin/Globulin Ratio 1.2, Lipase 28 01/01/25 19:42: VBG pH 7.34, VBG pCO2 50.3, VBG pO2 35.3, VBG HCO3 26.7, VBG Total CO2 28.2 H, VBG O2 Saturation 66.3, VBG Base Excess 0.9, VBG Lactic Acid 2.4 H 01/01/25 20:30: Lactate 1.6 01/01/25 21:10: Urine Color Yellow, Urine Appearance Clear, Urine pH 6.0, Ur Specific [place] <= 1.005, Urine Protein Negative, Urine Glucose (UA) 2+, Urine Ketones Negative, Urine Blood Negative, Urine Nitrate Negative, Urine Bilirubin Negative, Urine Urobilinogen 0.2, Ur Leukocyte Esterase Negative, Urine RBC 3-5, Urine WBC Occasional, Ur Squamous Epith Cells Occasional, Urine Bacteria 3+, U rine Opiates Screen Positive H, Urine Methadone Screen Negative, Ur Barbituates Screen Negative, Ur Phencyclidine Scrn Negative, Ur Amphetamines Screen Negative, U Benzodiazepines Scrn Positive H, Urine Cocaine Screen Negative, U Marijuana (THC) Screen Negative 01/01/25 18:40 01/01/25 18:40 Orders (Tests/Meds): ED MEDICATIONS Generic Name Dose Route Start Last Admin Trade Name Freq PRN Reason Stop Dose Admin Sodium Chloride 10 ml 01/01/25 20:19 01/01/25 20:20 Sodium Chloride 0.9% 10ml Syr (Rad Only) IV 01/31/25 20:18 10 ml NEEDED PRN Administration Maintain IV Site Discontinued Medications Generic Name Dose Route Start Last Admin Trade Name Freq PRN Reason Stop Dose Admin Sodium Chloride 1,000 mls @ 999 mls/hr 01/01/25 19:25 01/01/25 21:38 Sod Chlor 0.9% 1000ml Bag IV 01/01/25 20:25 Infused .Q1H1M ONE Infusion Ceftriaxone Sodium 1 gm/ 50 mls @ 100 mls/hr 01/01/25 20:49 01/01/25 21:31 Sodium Chloride IV 01/01/25 21:18 Infused ONCE ONE Infusion Azithromycin 500 mg/ Sodium 250 mls @ 250 mls/hr 01/01/25 20:50 01/01/25 21:32 Chloride IV 01/01/25 20:51 250 mls/hr ONCE ONE Administration Iopamidol 150 ml 01/01/25 20:19 01/01/25 20:20 Iopamidol-370 (76%);100ml Bottle IV 01/01/25 20:20 150 ml ONCE ONE Administration Sodium Chloride 100 ml 01/01/25 20:19 01/01/25 20:20 0.9 % Sodium Chloride 50 Ml Vial IV 01/01/25 20:20 100 ml ONCE ONE Administration ORDERS Category Date Time Status CT angio abdomen pelvis Stat Cat Scan 01/01/25 19:[address] angio chest PE protocol Stat Cat Scan 01/01/25 19:[address] angio head Stat Cat Scan 01/01/25 19:[address] angio neck Stat Cat Scan 01/01/25 19:[address] head/brain wo con Stat Cat Scan 01/01/25 19:21 Completed XR chest portable Stat Exams 01/01/25 19:20 Completed CK [Creatine Kinase] Stat Lab 01/01/25 18:40 Completed Complete Blood Count Auto Diff Stat Lab 01/01/25 18:40 Completed Comprehensive Metabolic Panel Stat Lab 01/01/25 18:40 Completed Drug Screen,Urine Stat Lab 01/01/25 21:10 Completed Lactic Acid Stat Lab 01/01/25 20:30 Completed Lipase Stat Lab 01/01/25 18:40 Completed Magnesium Stat Lab 01/01/25 18:40 Completed NT Pro Brain Natriuretic Pep. Stat Lab 01/01/25 18:40 Completed Troponin I Q3H Lab 01/01/25 22:30 Ordered Troponin I Q3H Lab 01/02/25 01:30 Ordered Troponin I Stat Lab 01/01/25 18:40 Completed Urinalysis and Microscopic Stat Lab 01/01/25 21:10 Completed Urine Culture Stat Micro 01/01/25 21:10 Received VBG [Venous Blood Gas] Stat RT 01/01/25 19:42 Completed Medical Decision Narrative: 79-year-old female presents the emergency department via EMS for generalized weakness altered mental status noted today, differential diagnose include but not limited to encephalopathy, uremic encephalopathy, metabolic encephalopathy, TIA/CVA, acute hypovolemia, cardiac arrhythmia, electrolyte disturbance, failure to thrive, acute kidney injury, acute UTI, medication noncompliance, medication side effect among others. I discussed this patient's case with the attending physician Dr. Stahl Will obtain basic laboratory studies, EKG, VBG, chest x-ray, CT head without contrast, CTA head and neck, CTA chest, CTA abdomen pelvis, creatinine kinase level UDS level lactic acid lipase level magnesium level, urinalysis, troponin and proBNP, will give IV 1 L NS CBC is noted for mild leukocytosis 12.5, erythrocytopenia 3.75, hemoglobin is 11 hematocrit 34.5 CMP is noted for mild hyponatremia at 124, BUN elevation 24, creatinine elevation at 1.1, CMP is notable for proBNP elevation at 1470 Initial troponin is less than 0.01 VBG is notable for venous lactic acid level is elevated I reviewed the patient's chest x-ray along the corresponding radiologic report, left upper lobe pneumonia. I reviewed the patient's CT head without contrast along the corresponding radiologic report, no acute intracranial abnormality. 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 I reviewed the patient's CTA chest with and without contrast PE protocol, left upper lobe pneumonia, left, carotid artery stenosis 3 cm right adrenal adenoma, 5 cm infrarenal abdominal aortic aneurysm incompletely imaged. Will give 1 g IV ceftriaxone and 500 mg IV azithromycin for community-acquired pneumonia. No lactic acidosis I reviewed the patient's CTA abdomen pelvis with and without contrast, along the corresponding radiologic report, 5 cm fusiform infrarenal abdominal aortic aneurysm without rupture bilateral total hip arthroplasty. I discussed this patient's case with Karl Farr APRN at approximately 9:22 PM he is in agreement with current admission plan for hyponatremia pneumonia generalized weakness and acute kidney injury, patient be admitted to [facility]. I discussed this recommendation for admission with patient family bedside patient and family are in agreement with the current treatment plan/admission plan. Patient having some lower back pain, will give her at home dose 5 mg p.o. Weinert for pain. UA is unremarkable. UDS positive for benzodiazepines, microscopic analysis of the urine is 3-5 RBCs occasional WBCs occasional squamous epithelial cells and 3+ bacteria. Critical Care Critical Care Time Critical Care Time: No
--- NOTE | 2025-01-01 19:20 | XR_ITS ---
PROCEDURE INFORMATION: Exam: XR Chest Exam date and time: 01/01/2025 7:25 PM Age: 79 years old Clinical indication: Shortness of breath; Additional info: AMS generalized weakness TECHNIQUE: Imaging protocol: Radiologic exam of the chest. Views: 1 view. COMPARISON: CT CHEST WO CON 05/14/2024 1:06 PM FINDINGS: Lungs: There has been interval development of moderate left apical pulmonary infiltrate. Interstitial prominence in the left lower lung appears stable. Right lung appears largely clear. Pleural spaces: Unremarkable. No pleural effusion. No pneumothorax. Heart/Mediastinum: Unremarkable. No cardiomegaly. Bones/joints: Moderate thoracolumbar scoliosis. No acute osseous abnormality. IMPRESSION: Left upper lobe pneumonia
--- NOTE | 2025-01-01 19:21 | CT_ITS ---
PROCEDURE INFORMATION: Exam: CTA Head With Contrast, Arteriography Exam date and time: 01/01/2025 7:58 PM Age: 79 years old Clinical indication: Weakness; Additional info: Generalized weakness TECHNIQUE: Imaging protocol: Computed tomographic angiography of the head with contrast. Exam focused on the arteries. 3D rendering (Not supervised by radiologist): MIP and/or 3D reconstructed images were created by the technologist. Radiation optimization: All CT scans at this facility use at least one of these dose optimization techniques: automated exposure control; mA and/or kV adjustment per patient size (includes targeted exams where dose is matched to clinical indication); or iterative reconstruction. Contrast material: ISOVUE; Contrast volume: 70 ml; Contrast route: INTRAVENOUS (IV); COMPARISON: CT ANGIO HEAD 01/01/2025 7:58 PM FINDINGS: ANTERIOR CIRCULATION: Right internal carotid artery: Intracranial segment is patent with no significant stenosis. No aneurysm. Right middle cerebral artery: No occlusion or significant stenosis. No aneurysm. Right anterior cerebral artery: No occlusion or significant stenosis. No aneurysm. Left internal carotid artery: Intracranial segment is patent with no significant stenosis. No aneurysm. Left middle cerebral artery: No occlusion or significant stenosis. No aneurysm. Left anterior cerebral artery: No occlusion or significant stenosis. No aneurysm. POSTERIOR CIRCULATION: Right vertebral artery: No occlusion or significant stenosis. No aneurysm. Left vertebral artery: No occlusion or significant stenosis. No aneurysm. Basilar artery: No occlusion or significant stenosis. No aneurysm. Right posterior cerebral artery: No occlusion or significant stenosis. No aneurysm. Left posterior cerebral artery: No occlusion or significant stenosis. No aneurysm. Brain: No definite mass, mass effect, or midline shift. Cerebral ventricles: No ventriculomegaly. Bones/joints: Unremarkable. No acute fracture. Soft tissues: Unremarkable. IMPRESSION: No large vessel stenosis or occlusion.
--- NOTE | 2025-01-01 19:21 | CT_ITS ---
PROCEDURE INFORMATION: Exam: CTA Neck With Contrast Exam date and time: 01/01/2025 8:05 PM Age: 79 years old Clinical indication: Weakness; Additional info: Generalized weakness TECHNIQUE: Imaging protocol: Computed tomographic angiography of the neck with contrast. Exam focused on the cervical segments of the vasculature. 3D rendering (Not supervised by radiologist): MIP and/or 3D reconstructed images were created by the technologist. Radiation optimization: All CT scans at this facility use at least one of these dose optimization techniques: automated exposure control; mA and/or kV adjustment per patient size (includes targeted exams where dose is matched to clinical indication); or iterative reconstruction. Contrast material: ISOVUE; Contrast volume: 70 ml; Contrast route: INTRAVENOUS (IV); COMPARISON: CT ANGIO HEAD 01/01/2025 7:58 PM FINDINGS: Right common carotid artery: No stenosis. No dissection or occlusion. Right internal carotid artery: No stenosis of the extracranial segment. No dissection or occlusion. Right external carotid artery: Moderate stenosis of the origin of the right external carotid artery. Left common carotid artery: Partially calcified mural thrombus produces just under 50% stenosis of the left common carotid artery. Left internal carotid artery: No stenosis of the extracranial segment. No dissection or occlusion. Left external carotid artery: Moderate stenosis of the origin of the left external carotid artery. Right vertebral artery: Congenitally small right vertebral artery with no definite focal stenosis or occlusion. Left vertebral artery: No stenosis. No dissection or occlusion. Soft tissues: Normal. No significant soft tissue swelling. Bones/joints: No acute fracture. Lungs: There is diffuse airspace disease throughout the posterior aspect of the left upper lobe compatible with acute pneumonia. IMPRESSION: 1. Mild stenosis of the left CCA. No significant ICA stenosis 2. Moderate bilateral ECA stenosis 3. 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 4. Left upper lobe pneumonia noted in the chest REFERENCES: NASCET CRITERIA. The degree of stenosis in the cervical segment of the internal carotid artery is based on NASCET criteria. Normal is no stenosis. Mild is less than 50% stenosis. Moderate is 50-69% stenosis. Severe is 70% to 99% stenosis. Total occlusion is no detectable patent lumen.
--- NOTE | 2025-01-01 19:21 | CT_ITS ---
PROCEDURE INFORMATION: Exam: CT Head Without Contrast Exam date and time: 01/01/2025 8:01 PM Age: 79 years old Clinical indication: Altered mental status/memory loss; Additional info: Ams/generalized weakness TECHNIQUE: Imaging protocol: Computed tomography of the head without contrast. Radiation optimization: All CT scans at this facility use at least one of these dose optimization techniques: automated exposure control; mA and/or kV adjustment per patient size (includes targeted exams where dose is matched to clinical indication); or iterative reconstruction. COMPARISON: CT ANGIO HEAD 01/01/2025 7:58 PM FINDINGS: Brain: Normal. No hemorrhage. Unremarkable white matter. No mass effect. Cerebral ventricles: No ventriculomegaly. Paranasal sinuses: Visualized sinuses are unremarkable. No fluid levels. Mastoid air cells: Visualized mastoid air cells are well aerated. Bones: Unremarkable. No acute fracture. Soft tissues: Unremarkable. IMPRESSION: No acute intracranial abnormality.
--- NOTE | 2025-01-01 19:24 | CT_ITS ---
PROCEDURE INFORMATION: Exam: CTA Abdomen and Pelvis With Contrast Exam date and time: 01/01/2025 8:10 PM Age: 79 years old Clinical indication: Other: Weakness; Additional info: AMS, weakness, HX of aaa TECHNIQUE: Imaging protocol: Computed tomographic angiography of the abdomen and pelvis with contrast. Exam focused on the arteries. 3D rendering (Not supervised by radiologist): MIP and/or 3D reconstructed images were created by the technologist. Radiation optimization: All CT scans at this facility use at least one of these dose optimization techniques: automated exposure control; mA and/or kV adjustment per patient size (includes targeted exams where dose is matched to clinical indication); or iterative reconstruction. Contrast material: ISOVUE; Contrast volume: 70 ml; Contrast route: INTRAVENOUS (IV); COMPARISON: CT ANGIO ABDOMEN/FEMORAL 09/10/2024 1:16 PM FINDINGS: Aorta: 5 cm fusiform infrarenal abdominal aortic aneurysm without rupture. Celiac and mesenteric arteries: No occlusion or significant stenosis. Renal arteries: No occlusion or significant stenosis. Right iliac arteries: No occlusion or significant stenosis. Left iliac arteries: No occlusion or significant stenosis. Liver: No mass. Gallbladder and biliary ducts: Unremarkable. No calcified stones. No ductal dilation. Pancreas: Unremarkable. No mass. No ductal dilation. Spleen: Unremarkable. No splenomegaly. Adrenal glands: Unremarkable. No mass. Kidneys and ureters: Unremarkable. No solid mass. No hydronephrosis. Stomach and bowel: Unremarkable. No obstruction. No mucosal thickening. Appendix: No evidence of appendicitis. Intraperitoneal space: Unremarkable. No free air. No significant fluid collection. Lymph nodes: Unremarkable. No enlarged lymph nodes. Urinary bladder: Unremarkable. No mass. Reproductive: Pessary in place. Bones/joints: Bilateral total hip arthroplasty. Soft tissues: Unremarkable. IMPRESSION: 1. 5 cm fusiform infrarenal abdominal aortic aneurysm without rupture. 2. Bilateral total hip arthroplasty.
--- NOTE | 2025-01-01 19:24 | CT_ITS ---
PROCEDURE INFORMATION: Exam: CTA Chest With Contrast Exam date and time: 01/01/2025 8:10 PM Age: 79 years old Clinical indication: Other: Weakness; Additional info: AMS, weakness, HX of aaa TECHNIQUE: Imaging protocol: Computed tomographic angiography of the chest with contrast. Exam focused on the arteries. 3D rendering (Not supervised by radiologist): MIP and/or 3D reconstructed images were created by the technologist. Radiation optimization: All CT scans at this facility use at least one of these dose optimization techniques: automated exposure control; mA and/or kV adjustment per patient size (includes targeted exams where dose is matched to clinical indication); or iterative reconstruction. Contrast material: ISOVUE; Contrast volume: 70 ml; Contrast route: INTRAVENOUS (IV); COMPARISON: CT CHEST WO CON 05/14/2024 1:06 PM FINDINGS: Pulmonary arteries: Normal. No pulmonary emboli. Great vessels off aortic arch: Left common carotid artery stenosis. Aorta: 5 cm infrarenal abdominal aortic aneurysm, incompletely imaged. Lungs: Left upper lobe pneumonia. Pleural spaces: Unremarkable. No pneumothorax. No pleural effusion. Heart: Unremarkable. No cardiomegaly. No pericardial effusion. Lymph nodes: Unremarkable. No enlarged lymph nodes. Adrenal glands: 3 cm right adrenal adenoma. Bones/joints: Unremarkable. No acute fracture. Soft tissues: Unremarkable. IMPRESSION: 1. Left upper lobe pneumonia. 2. Left common carotid artery stenosis. 3. 3 cm right adrenal adenoma. 4. 5 cm infrarenal abdominal aortic aneurysm, incompletely imaged.
[2025-01-01 19:25] LABS: Hematocrit 34.5 % (37.0-47.0); Hemoglobin 11.0 g/dL (12.2-16.2); Immature Granulocytes % 1.4 %; Mean Corpuscular HGB Conc 31.9 g/dL (31.8-35.4); Mean Corpuscular Hemoglobin 29.3 pg (27.0-31.2); Mean Corpuscular Volume 92.0 fl (81-99); Nucleated Red Blood Cells % 0 %; Platelet Count 221 K/mm3 (142-424); Red Blood Count 3.75 M/mm3 (4.20-5.40); Red Cell Distribution Width-SD 46.4 fL; White Blood Count 12.5 K/mm3 (4.8-10.8)
[2025-01-01 19:27] LABS: Albumin Level 4.1 g/dl (3.5-5.0); Chloride 90 mmol/L (98-107); Potassium 4.4 mmoL/L (3.5-5.1); Sodium 124 mmol/L (136-145)
[2025-01-01 19:30] LABS: Alanine Aminotransferase 28 U/L (12-78); Albumin/Globulin Ratio 1.2 (1.1-1.8); Alkaline Phosphatase 49 U/L (38-126); Anion Gap 10.4 mEq/L (5-15); Aspartate Amino Transferase 34 U/L (14-36); Bilirubin,Total 0.8 mg/dl (0.2-1.3); Blood Urea Nitrogen 24 mg/dl (7-17); Calcium 8.8 mg/dl (8.4-10.2); Carbon Dioxide 28 mmol/L (22.0-30.0); Creatine Kinase 73 U/L (30-135); Creatinine Clearance Estimated 36 mL/min (50-200); Creatinine,Serum 1.10 mg/dl (0.52-1.04); Estimated Glomerular Filt Rate 48 ml/min (>60); GFR (African American) 58 ML/MIN (>60); Globulin 3.3 g/dL (1.3-3.2); Glucose 151 mg/dl (74-100); Lipase 28 U/L (23-300); Magnesium 2.0 mg/dl (1.6-2.3); Total Protein,Serum 7.4 g/dl (6.3-8.2)
[2025-01-01 19:40] LABS: NT Pro Brain Natriuretic Pep. 1470 pg/mL (0-450)
[2025-01-01 19:48] LABS: Total Cells Counted 100; Troponin I < 0.01 ng/ml (0.00-0.034)
[2025-01-01 19:54] LABS: VBG HCO3 26.7 mmol/L (23-30); VBG PH 7.34 mmol/L (7.31-7.41); VBG PO2 35.3 mmol/L (28-40)
[2025-01-01 19:58] LABS: Lactate Venous 2.4 mmol/L (0.4-2.0); VBG PCO2 50.3 mmol/L (35-51)
[2025-01-01] MEDS: 0.9 % SODIUM CHLORIDE 1000ML 1,000 ML 999 ML IV (20:17)
[2025-01-01] MEDS: IOPAMIDOL-370 (76%);100ML BOTTLE 150 ML IV (20:20)
[2025-01-01] MEDS: 0.9 % SODIUM CHLORIDE 50 ML VIAL 100 ML IV (20:20)
[2025-01-01] MEDS: SODIUM CHLORIDE 0.9% 10ML SYR (RAD ONLY) 10 ML IV (20:20)
[2025-01-01 21:16] LABS: Microscopic, Urine URINE MICROSCOPIC (MICROSCOPIC)
[2025-01-01 21:19] LABS: Bilirubin,Urine Negative (Negative); Color,Urine YELLOW (Yellow); Glucose,Urine (UA) 2+ (Negative); Ketones,Urine Negative (Negative); Leukocyte Esterase,Urine Negative (Negative); PH,Urine 6.0 (5.0-8.5); Protein,Urine Negative (Negative); Specific Gravity, Urine <= 1.005 (1.005-1.030); Urobilinogen,Urine 0.2 EU/dl (0.2)
[2025-01-01] MEDS: AZITHROMYCIN 500 MG in 0.9 % SODIUM CHLORIDE 250 ML 250 MG IV (21:32)
[2025-01-01 21:35] LABS: Bacteria,Urine 3+ /lpf; Squamous Epithelial Cell,Urine Occasional #/hpf (0-5); WBC,Urine Occasional #/hpf (0-3)
[2025-01-01 21:39] LABS: Barbiturates Screen,Urine Negative ng/ml (<200); Benzodiazepines Screen,Urine Positive ng/ml (<200)
[2025-01-01 21:40] LABS: Amphetamine/Metha Screen,Urine Negative ng/ml (<1000)
[2025-01-01 21:42] LABS: Methadone Screen,Urine Negative ng/ml (<300)
[2025-01-01 21:43] LABS: Opiate Screen,Urine Positive ng/ml (<300); Phencyclidine Screen,Urine Negative ng/ml (<25)
--- NOTE | 2025-01-01 21:44 | PC.NURSE ---
Report given to Laureen MCMAHON on [employer]
--- NOTE | 2025-01-01 22:09 | P.HP_ITS ---
<Statement entered by Al Bailey MD - 01/02/25 15:46> Rounded on patient after nurse practitioner. Personally examined and interviewed patient. Agree with exam findings and care plan as documented. On evaluation, patient's PSI/port score is 98. This is due to age, hyponatremia, heart failure history, and being female. Meeting inpatient criteria for her pneumonia and her hyponatremia. Monitoring sodium every 6 hours. Correction rate between 8 to 10 mEq. Concern for total volume hyponatremia as her urine sodium is 6 and serum sodium was 124. Improved to 129 on morning labs. Fluoride 90. Seeing some improvement in her weakness with improvement in her sodium. Continuing broad-spectrum antibiotics for pneumonia. Weaned to 1 L oxygen on morning rounds with O2 sats remaining above 90%. Wean as tolerated. Therapy working with patient. History of Present Illness *Admission Date: 01/01/25 *Reason for visit:: Weakness *History of present illness: [facility] emergency room,This is a 79-year-old female with past medical history significant for COPD (has as needed home O2 at 2 L), hyponatremia, breast cancer, allergic rhinitis, lung nodule, AAA, pulmonary hypertension, HFpEF, SVT, hypothyroidism, emphysema, anxiety, hypertension, and arthritis of the hip who presents with a chief complaint of confusion, fatigue, difficulty walking, and generalized weakness. Due to patient's symptoms, she presented to the emergency room for evaluation. While in the emergency room, CT scan of the chest revealed left upper lobe pneumonia, left common carotid artery stenosis, 3 cm right adrenal adenoma, and 5 cm infrarenal abdominal aortic aneurysm. Patient also had some low serum sodium levels. As a result, patient has been admitted for further management. During my evaluation of the patient, patient states that she has been having generalized weakness without any focal deficits. She reports difficulty ambulating today. Daughter was reporting some confusion but they reports she is now at her baseline. Moreover, patient states she has had a decreased p.o. intake. Patient is currently prescribed citalopram and Bumex daily. She appears to be hypovolemic. She is currently denying any chest pain, lightheadedness, dizziness, fever, chills, rigors, nausea, vomiting, headache, PND, orthopnea, lower extremity swelling, or diarrhea. 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 CT scan of the head was negative for any acute intracranial process. Additional pertinent vitals obtained include a white blood cell count of 12.5, red blood cell count of 3.75, hemoglobin [place] 0.0, hematocrit 34.5, neutrophils 88.6%, sodium of 124, chloride of 90, BUN 24, creatinine 1.10, GFR 48, blood glucose 451, and BNP of 1470. [facility] Disclaimer: The information contained in this section may have been updated after the patient was seen, as this information can be updated by other users. Medical History (Updated 01/01/25 @ 22:45 by Laureen Mccray RN) Breast cancer Abnormal electrocardiogram [ECG] [EKG] Allergic rhinitis COPD mixed type Weight loss Poor appetite Diarrhea Chronic respiratory failure with hypoxia Lung nodule History of smoking 30 or more pack years Tobacco abuse Abdominal aortic aneurysm (AAA) Pulmonary hypertension Pleural effusion (HFpEF) heart failure with preserved ejection fraction Tobacco dependence SVT (supraventricular tachycardia) Hypothyroid Emphysema/COPD Anxiety Hypertension COPD exacerbation Arthritis of hip Surgical History Hx of removal of cyst H/O tubal ligation History of partial mastectomy of left breast History of colonoscopy History of cataract surgery H/O thyroidectomy History of laparoscopic cholecystectomy History of total hip replacement Family History Daughter Cancer lung Social History (Updated 01/01/25 @ 22:45 by Laureen Mccray RN) Smoking Status: Current every day smoker tobacco type: cigarettes packs per day: 1 second hand exposure: Yes alcohol intake: never substance use type: denies use current occupational status: retired Travel in the last 8 weeks?: None household members: spouse housing: house current occupational exposures/hazards: No caffeine: Yes Have you lived/traveled outside [place] in past 30 days?: No Contact w/someone who lives/traveled outside US past 30 days?: No Exposure to someone with infectious disease in past 14 days?: No Do you have a fever (greater than 100.4 F or 38 C)?: No Have you tested positive for COVID-19?: No Exposed to someone with COVID-19 in past 14 days?: No Do you have a sore throat?: No Do you have a cough?: No Do you have any weakness?: Yes Are you experiencing any nausea/vomitting?: No Do you have any diarrhea?: No Are you experiencing any unusual bleeding?: No Do you have any muscle aches/pain?: No Do you have any abdominal pain?: No Are you experiencing loss of taste or smell?: No Other Medical History Have you received the Flu Vaccine for this season: No Have you received the Pneumonia Vaccine: Yes Review of Systems Review of Systems Review of systems:: pertinent systems reviewed and negative unless documented below Constitutional Constitutional: Reports fatigue, Reports poor appetite, Reports lethargy, Reports malaise and Reports weakness Eyes Eyes: Reports system reviewed and no additional complaints, except as documented ENT Ears, Nose, Mouth, and Throat: Reports system reviewed and no additional complaints, except as documented *Cardiovascular Cardiovascular: Reports system reviewed and no additional complaints, except as documented *Respiratory Respiratory: Reports system reviewed and no additional complaints, except as documented *Gastrointestinal Gastrointestinal: Reports system reviewed and no additional complaints, except as documented *Genitourinary Genitourinary: Reports system reviewed and no additional complaints, except as documented *Musculoskeletal Musculoskeletal: Reports muscle weakness Integumentary/Breasts Skin/Breast: Reports system reviewed and no additional complaints, except as documented *Neurologic Neurologic: Reports confusion and Reports weakness Psychiatric Psychiatric: Reports confusion Endocrine Endocrine: Reports fatigue Hematologic/Lymphatic Hematologic/Lymphatic: Reports system reviewed and no additional complaints, except as documented Allergic/Immunologic Allergic/Immunologic: Reports system reviewed and no additional complaints, except as documented Meds Home Medications and Allergies Home Medications ?Medication ?Instructions ?Recorded ?Confirmed ?Type cholecalciferol (vitamin D3) 125 125 mcg PO DAILY 10/1101/01/25 History mcg (5,000 unit) capsule diclofenac sodium 75 mg 75 mg PO BID #60 tabs 01/01/25 Rx tablet,delayed release alprazolam 0.5 mg tablet 0.5 mg PO QIDP PRN Anxiety 0 11/08/23 01/01/25 History citalopram 40 mg tablet 20 mg PO BID 11/08/23 History mecobalamin (vitamin B12) 2,500 2,500 mcg PO DAILY 01/01/25 History mcg chewable tablet potassium 99 mg tablet 99 mg PO DAILY 11/08/2312/11 History empagliflozin 10 mg tablet 10 mg PO DAILY 30 days #30 tabs 11/09/23 01/01/25 Rx (Jardiance) spironolactone 25 mg tablet 25 mg PO DAILY 30 days #30 tabs 11/09/23 01/01/25 Rx albuterol sulfate 90 mcg/actuation 2 puff inhalation Q 6H PRN 11/23/23 01/01/25 Rx aerosol inhaler shortness of breath or wheez ing 90 days #8.5 grams ipratropium 0.5 mg-albuterol 3 mg 3 ml inhalation QID PRN shortness 11/23/23 01/01/25 Rx (2.5 mg base)/3 mL nebulization of breath or wheezing 90 days #270 soln mL amlodipine 5 mg tablet 5 mg PO DAILY 30 days #30 ta bs 12/26/23 01/01/25 Rx dicyclomine 20 mg tablet 20 mg PO BID 06/04/24 History bumetanide 1 mg tablet 1 mg PO BID 06/23/24 5 History hydrocodone 5 mg-acetaminophen 325 1 tab PO TID PRN Pa in (Scale Score 10/28/24 01/01/25 History mg tablet 4-6) glycopyrrolate 9 mcg-formoterol 2 puff inhalation BID 90 days 12/17/24 01/01/25 Rx 4.8 mcg HFA aerosol inhaler #10.7 grams (Bevespi Aerosphere) anastrozole 1 mg tablet 1 mg PO DAILY 01/01/2501/01 History irbesartan 75 mg tablet 37.5 mg PO DAILY 01/01/25 History melatonin 5 mg tablet 5 mg PO HS PRN Sleep 5 01/01/25 History montelukast 10 mg tablet 10 mg PO HS 01/01/25 5 History levothyroxine 150 mcg tablet 150 mcg PO DAILY 01/02/25 01/02/25 History New Prescriptions to Start Prescriptions: Allergies Allergy/AdvReac Type Severity Reaction Status Date / Time doxycycline Allergy Mild Unknown Verified 11/21/24 11:52 allergy reaction adhesive Allergy Unknown Unknown Verified 11/21/24 11:52 allergy reaction Antihistamines - Allergy Unknown Unknown Verified 11/21/24 11:52 Ethylenediamine allergy reaction latex (LATEX) Allergy Unknown Rash Verified 11/21/24 11:52 duloxetine AdvReac Unknown Fatigued Verified 11/21/24 11:52 ketoprofen AdvReac Unknown I-RASH Verified 11/21/24 11:52 amoxicillin AdvReac Diarrhea Verified 11/21/24 11:52 Exam Data for Last 24 hours Vital signs and Labs for Last 24 Hours: Temp Pulse Resp BP Pulse Ox O2 Del Method O2 Flow Rate 97.8 F 73 27 H 105/61 L 97 Nasal Cannula 2 01/01/25 21:50 01/01/25 21:50 01/01/25 21:50 01/01/25 21:50 01/01/25 21:45 01/01/25 21:50 01/01/25 21:50 Laboratory Results - last 24 hr 01/01/25 18:40: WBC 12.5 H, RBC 3.75 L, Hgb 11.0 L, Hct 34.5 L, MCV 92.0, MCH 29.3, MCHC 31.9, RDW 13.7, Plt Count 221, MPV 9.3, Neut % (Auto) 88.6 H, Lymph % (Auto) 3.4 L, [place] % (Auto) 6.3, Eos % (Auto) 0.0 L, Baso % (Auto) 0.3, Neut # (Auto) 11.1 H, Lymph # (Auto) 0.4 L, [place] # (Auto) 0.8, Eos # (Auto) 0.0, Baso # (Auto) 0.0, Total Counted 100, Neutrophils % (Manual) 91 H, Lymphocytes % (Manual) 5 L, Monocytes % (Manual) 4, Sodium 124 L, Potassium 4.4, Chloride 90 L , Carbon Dioxide 28, Anion Gap 10.4, BUN 24 H, Creatinine 1.10 H, Estimated Creat Clear 36, Estimated GFR 48 L, Est GFR ( Amer) 58 L, Glucose 151 H, Calcium 8.8, Magnesium 2.0, Total Bilirubin 0.8, AST 34, ALT 28, Alkaline Phosphatase 49, Total Creatine Kinase 73, Troponin I < 0.01, NT-Pro-B Natriuret Pep 1470 H, Total Protein 7.4, Albumin 4.1, Globulin 3.3 H, Albumin/Globulin Ratio 1.2, Lipase 28 01/01/25 19:42: VBG pH 7.34, VBG pCO2 50.3, VBG pO2 35.3, VBG HCO3 26.7, VBG Total CO2 28.2 H, VBG O2 Saturation 66.3, VBG Base Excess 0.9, VBG Lactic Acid 2.4 H 01/01/25 20:30: Lactate 1.6 01/01/25 21:10: Urine Color Yellow, Urine Appearance Clear, Urine pH 6.0, Ur Specific [place] <= 1.005, Urine Protein Negative, Urine Glucose (UA) 2+, Urine Ketones Negative, Urine Blood Negative, Urine Nitrate Negative, Urine Bilirubin Negative, Urine Urobilinogen 0.2, Ur Leukocyte Esterase Negative, Urine RBC 3-5, Urine WBC Occasional, Ur Squamous Epith Cells Occasional, Urine Bacteria 3+, Urine Opiates Screen Positive H, Urine Methadone Screen Negative, Ur Barbituates Screen Negative, Ur Phencyclidine Scrn Negative, Ur Amphetamines Screen Negative, U Benzodiazepines Scrn Positive H, Urine Cocaine Screen Negative, U Marijuana (THC) Screen Negative I & O for Last 24 hours: Intake & Output 12/29/24 12/30/24 12/31/24 01/01/25 23:59 23:59 23:59 23:59 Intake Total 1050 / 1050 Balance 1050 / 1050 Weight 54.431 kg Constitutional Constitutional: no acute distress and cooperative *Routine HEENT Exam Head: Present normocephalic and atraumatic Eye: Present EOMI and PERRL ENT: Present mucous membranes moist *Routine Neck Exam Neck: Present supple, full ROM and trachea midline *Routine Respiratory Exam Respiratory: Present rhonchi, normal respiratory effort, able to speak in complete sentences and symmetric chest movement *Routine Cardiovascular Exam Cardiovascular: Present RRR, Normal S1 and Normal S2 *Routine Abdominal Exam Abdominal: Present soft and normoactive bowel sounds *Routine Rectal Exam Rectal:: deferred *Routine Genitalia Exam Genitalia:: deferred *Routine Extremities Exam Extremities: Present full ROM, pulses intact and normal capillary refill Routine Back/Spine/Pelvis Exam Back/Spine: Present full ROM *Routine Skin Exam Skin: Present intact, dry, warm and normal turgor *Routine Neurological Exam Neurological: Present alert, oriented X3, CN II-XII intact and moving all extremities Routine Psychiatric Exam Psychiatric: Present normal affect, normal thought process, cooperative, good insight, good judgment and anxious H&P: Result Impressions 79-year-old female presents with a chief complaint of generalized weakness, fatigue, and difficulty ambulating was noted to have a left upper lobe community-acquired pneumonia and hyponatremia. She is currently prescribed Bumex and SSRI which may be contributing to patient's hyponatremia. Patient appears to be hypovolemic Assessment and Plan *Assessment and plan (1) Left lower lobe pneumonia: Status: Acute Qualifiers: Pneumonia type: due to unspecified organism Qualified Code(s): J18.9 - Pneumonia, unspecified organism Category: Medical Code(s): J18.9 - Pneumonia, unspecified organism (2) Hyponatremia: Status: Acute Category: Medical Code(s): E87.1 - Hypo-osmolality and hyponatremia (3) Acute kidney injury: Status: Acute Category: Medical Code(s): N17.9 - Acute kidney failure, unspecified (4) Generalized weakness: Status: Acute Category: Medical Code(s): R53.1 - Weakness (5) Leukocytosis: Status: Acute Qualifiers: Leukocytosis type: unspecified Qualified Code(s): D72.829 - Elevated white blood cell count, unspecified Category: Medical Code(s): D72.829 - Elevated white blood cell count, unspecified (6) Lactic acidosis: Status: Acute Category: Medical Code(s): E87.20 - Acidosis, unspecified (7) Altered mental status: Status: Acute Qualifiers: Altered mental status type: unspecified Qualified Code(s): R41.82 - Altered mental status, unspecified Category: Medical Code(s): R41.82 - Altered mental status, unspecified Plan Assessment: Left upper lobe community-acquired bacterial pneumonia Altered mental status: Most likely in the setting of metabolic encephalopathy; improved Lactic acidosis Leukocytosis with left shift - Patient's mentation is back to her baseline - Currently patient CT scan is without any findings consistent with acute stroke - Patient is also without any focal extremity deficits - If patient's confusion persist or continued weakness, will consider MRI of the brain with and without contrast - Will continue to treat community-acquired pneumonia with 1 g of Rocephin IV daily and 250 mg azithromycin p.o. daily - Will trend patient's venous lactic acid - Blood cultures x 2 - Obtain procalcitonin in the a.m. Hyponatremia Acute kidney injury: Most likely prerenal; baseline creatinine is within normal limits - May be multifactorial in the setting of decreased p.o. intake and hypovolemia - Patient is currently receiving SSRI and Bumex - Will temporarily hold these medications until patient's sodium is therapeutic - Since patient is without any prolonged confusion, will continue gentle IV hydration and monitor sodium to ensure it does not increase more than 6-8 mEq over 24-hour time spent - Once patient becomes euvolemic and serum sodium is close to 130, we can discontinue patient's IV hydration - Will monitor for overcorrection of volume - Will monitor patient's creatinine and if worsen will obtain urine studies and renal ultrasound 3 cm adrenal adenoma - Currently patient is without any significant symptomology of adrenal dysfunction - Will consider outpatient workup - Any persistent hypotension will obtain cortisol level 5 cm AAA - Is stable without any evidence of dissecting Breast cancer (hers 2) - Will continue patient's anastrozole 1 mg tablet daily once med rec is updated Plan: Admit patient to the MedSurg unit Supplemental oxygen to maintain oxygen saturation greater 92% Physical therapy Cardiac diet CBC/BMP daily BMP every 6 hours Normal saline at 75 mL an hour 5000 units of heparin SQ twice daily 5 mg [place] as needed every 4 hours moderate to severe pain 21 mg nicotine patch daily 4 mg Zofran IV push to 8 hours for nausea vomit Full code All discussed this case with attending physician Dr. Bailey and I look forward to more input
[2025-01-01] MEDS: 0.9 % SODIUM CHLORIDE 1000ML 1,000 ML 75 ML IV (22:18)
[2025-01-01 22:28] LABS: Sodium,Urine Random 6.0 mmol/L (30-90)
[2025-01-01] MEDS: NICOTINE 21MG/24HR PATCH 21 MG TD (23:00)
[2025-01-01] MEDS: HYDROCODONE/APAP 5/325 MG TABLET 1 TAB PO (23:01)
[2025-01-01] MEDS: MELATONIN 5MG TABLET 5 MG PO (23:01)
[2025-01-01 23:25] LABS: Reflex Lactic Add Lactic Reflex
[2025-01-02] VITALS: BP 101/52; PULSE 72; RESP 18; TEMP 36.9; O2SAT 98
[2025-01-02 01:10] LABS: Lactic Acid Follow Up (RFLX 1) 2.3 mmol/L (0.7-2.1)
[2025-01-02 01:21] LABS: Troponin I < 0.01 ng/ml (0.00-0.034)
[2025-01-02 03:09] LABS: Reflex Lactic (2 hrs) Add Lactic Reflex
[2025-01-02 03:49] LABS: Troponin I < 0.01 ng/ml (0.00-0.034)
--- NOTE | 2025-01-02 03:51 | PC.NURSE ---
Alert and oriented since arriving to floor. Complained of pain on arrival to floor and anxiety, treated per may. Patient rested well. 0330 patient woke up feeling anxious, treated per may, O2 sat 87%, placed on 4L NC at this time, 92%. Patient remains on 4L NC. Patient complains of left breast pain on inhalation, patient is not ready for pain medication. No other complaints. Uses purewick. Very weak in bed. Lung sounds diminished. Call light in reach. Daughter remains at bedside.
[2025-01-02 04:00] VITALS: BP 109/56; PULSE 81; RESP 16; TEMP 38; O2SAT 98; BMI 23.6
[2025-01-02] MEDS: ACETAMINOPHEN 325MG TAB 650 MG PO ×3 (05:41→23:49)
[2025-01-02 06:23] VITALS: TEMP 37.2
[2025-01-02 08:00] VITALS: BP 107/69; PULSE 86; RESP 16; TEMP 36.9; O2SAT 95
[2025-01-02] MEDS: AZITHROMYCIN 250MG TABLET 250 MG PO (09:02)
[2025-01-02] MEDS: AMLODIPINE 5MG TABLET 5 MG PO (09:02)
[2025-01-02] MEDS: LEVOTHYROXINE 150MCG (0.15MG)TAB 150 MCG PO (09:02)
[2025-01-02] MEDS: EMPAGLIFLOZIN 10MG TABLET 10 MG PO (09:02)
[2025-01-02] MEDS: HEPARIN SODIUM 5,000 UNIT/ML VIAL 5000 UNIT SUBCUT ×2 (09:03→20:04)
[2025-01-02] MEDS: IRBESARTAN 75MG TABLET 37.5 MG PO (09:03)
[2025-01-02] MEDS: HYDROCODONE/APAP 5/325 MG TABLET 1 TAB PO (09:09)
[2025-01-02 09:11] LABS: Chloride 98 mmol/L (98-107); Potassium 3.9 mmoL/L (3.5-5.1); Sodium 129 mmol/L (136-145)
[2025-01-02 09:13] LABS: Hematocrit 34.0 % (37.0-47.0); Hemoglobin 10.9 g/dL (12.2-16.2); Immature Granulocytes % 1.1 %; Mean Corpuscular HGB Conc 32.1 g/dL (31.8-35.4); Mean Corpuscular Hemoglobin 30.2 pg (27.0-31.2); Mean Corpuscular Volume 94.2 fl (81-99); Nucleated Red Blood Cells % 0 %; Platelet Count 188 K/mm3 (142-424); Red Blood Count 3.61 M/mm3 (4.20-5.40); Red Cell Distribution Width-SD 48.6 fL; White Blood Count 10.9 K/mm3 (4.8-10.8)
[2025-01-02 09:14] LABS: Anion Gap 7.9 mEq/L (5-15); Blood Urea Nitrogen 16 mg/dl (7-17); Carbon Dioxide 27 mmol/L (22.0-30.0); Creatinine Clearance Estimated 42 mL/min (50-200); Creatinine,Serum 0.90 mg/dl (0.52-1.04); Estimated Glomerular Filt Rate 61 ml/min (>60); GFR (African American) 73 ML/MIN (>60)
[2025-01-02 09:15] LABS: Calcium 7.8 mg/dl (8.4-10.2); Glucose 127 mg/dl (74-100)
[2025-01-02] MEDS: ANASTROZOLE 1 MG 1 EACH PO (09:42)
--- NOTE | 2025-01-02 10:05 | HMH.OTEV ---
OT Evaluation Rehab OT IP Evaluation Start: 01/02/25 08:12 Freq: ONCE Status: Active Protocol: Document 01/02/25 10:00 VALERIE (Rec: 01/02/25 10:05 VALERIE [id number]) Rehab OT IP Assessment Subjective History [facility],This is a 79-year-old female with past medical history significant for COPD ( has as needed home O2 at 2 L), hyponatremia, breast cancer, allergic rhinitis, lung nodule, AAA, pulmonary hypertension, HFpEF, SVT, hypothyroidism, emphysema, anxiety, hypertension, and arthritis of the hip who presents with a chief complaint of confusion, fatigue, difficulty walking, and generalized weakness. Due to patient's symptoms, she presented to the emergency room for evaluation. While in the emergency room, CT scan of the chest revealed left upper lobe pneumonia, left common carotid artery stenosis, 3 cm right adrenal adenoma, and 5 cm infrarenal abdominal aortic aneurysm. Patient also had some low serum sodium levels. As a result, patient has been admitted for further management. During my evaluation of the patient, patient states that she has been having generalized weakness without any focal deficits. She reports difficulty ambulating today. Daughter was reporting some confusion but they reports she is now at her baseline. Moreover, patient states she has had a decreased p.o. intake. Patient is currently prescribed citalopram and Bumex daily. She appears to be hypovolemic. She is currently denying any chest pain, lightheadedness, dizziness, fever, chills, rigors, nausea, vomiting, headache, PND, orthopnea, lower extremity swelling, or diarrhea. 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 CT scan of the head was negative for any acute intracranial process. Additional pertinent vitals obtained include a white blood cell count of 12.5, red blood cell count of 3.75, hemoglobin Alex 0.0, hematocrit 34.5, neutrophils 88.6%, sodium of 124, chloride of 90, BUN 24, creatinine 1.10, GFR 48, blood glucose 451, and BNP of 1470. Patient lives alone in 1 story home with 1 EMILY. Independent with ADLs and fx'l mobility tasks. Has a rollator and RW at home, but does not use them. Drives locally. Has paid services come a [employer] house 1x/month . Family assist with housekeeping tasks at well. Subjective I need to use the restroom. Assisted Patient to completed functional mobility within the environment with RW and toileting task. Patient able to complete all transfers with SBA/CGA for safety. No LOB noted. Patient continent of bowel and bladder mgt tr this date. Left Patient sitting on toilet with call light in reach and 02 donned with family in room at end of session. EDucated Patient and patient's family re: using call light when patient is finish with toileting tasks. Objective Patient Orientation Person,Place,Name,Birthday Right Upper WFL Extremity Gross ROM Left Upper Extremity WFL Gross ROM Bed Mobility bed mobility - supine/sit Assist Level Supervision/Stand by Transfer Training Sit/Stand Transfer,Sit/Stand/Step Transfer Assist Level Contact Guard/Hand Hold Lower Body Dressing Standby Assistance Ability Rehab OT IP prob,goals,plan Problems Date of Evaluation: 01/02/25 OT IP Problems Bed Mobility,Transfers,Balance,Self care,Safety Rehab Potential Rehab Potential Good Equipment Needs Assistive Devices Rolling / Wheeled Walker Plan OT intervention Plan Bed Mobility,Transfers,Balance,Self care,Safety, Therapeutic Exercise OT Plan Frequency Daily Duration LOS Discharge Goals Bed Mobility Ability Independent Sit to Stand Chair Contact Guard/Hand Hold Transfer Ability Chair Transfer Contact Guard/Hand Hold Ability Chair Transfer Sit to/from Ambulatory Technique Chair Transfer Rolling Walker Assistive Devices Discharge Plan OT Discharge Plan Recommend patient to return home with services. Patient to continue skilled OT Services while here at [facility] in order to address safety awareness with ADLs and fx'l mobility tasks. Eval Complexity Eval Charge Codes 65851 - Low Complexity PHYSICIAN CERTIFICATION: I certify the specified therapy services for Cindy Braxton are required, authorized, and reviewed every 30 days.
--- NOTE | 2025-01-02 10:34 | HMH.PTEV ---
Physical Therapy Evaluation Rehab PT IP Evaluation Start: 01/01/25 22:01 Freq: ONCE Status: Active Protocol: Document 01/02/25 09:17 KASSI (Rec: 01/02/25 10:34 KASSI [id number]) Subjective/History History History Per H&P: [facility],This is a 79-year-old female with past medical history significant for COPD (has as needed home O2 at 2 L), hyponatremia, breast cancer, allergic rhinitis, lung nodule, AAA, pulmonary hypertension, HFpEF, SVT, hypothyroidism, emphysema, anxiety, hypertension, and arthritis of the hip who presents with a chief complaint of confusion, fatigue, difficulty walking, and generalized weakness. Due to patient's symptoms, she presented to the emergency room for evaluation. While in the emergency room, CT scan of the chest revealed left upper lobe pneumonia, left common carotid artery stenosis, 3 cm right adrenal adenoma, and 5 cm infrarenal abdominal aortic aneurysm. Patient also had some low serum sodium levels. As a result, patient has been admitted for further management. During my evaluation of the patient, patient states that she has been having generalized weakness without any focal deficits. She reports difficulty ambulating today. Daughter was reporting some confusion but they reports she is now at her baseline. Moreover, patient states she has had a decreased p.o. intake. Patient is currently prescribed citalopram and Bumex daily. She appears to be hypovolemic. She is currently denying any chest pain, lightheadedness, dizziness, fever, chills, rigors, nausea, vomiting, headache, PND, orthopnea, lower extremity swelling, or diarrhea. 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 CT scan of the head was negative for any acute intracranial process. Additional pertinent vitals obtained include a white blood cell count of 12.5, red blood cell count of 3.75, hemoglobin [place] 0.0, hematocrit 34.5, neutrophils 88.6%, sodium of 124, chloride of 90, BUN 24, creatinine 1.10, GFR 48, blood glucose 451, and BNP of 1470. Subjective Subjective Pt reports she normally lives alone in a single-story home with 3 EMILY. Pt normally able to ambulate IND without AD but does furniture walk. Pt's daughter present to assist in history taking. Pt's daughter reports family lives nearby and motion detected cameras are installed in pt's home. Pt denies any falls in past 30 days. Pt reports recent difficulty with ambulation and standing. [facility] How much help from another person do you currently need... Turning from your A little back to your side while in a flat bed without using bedrails? Moving from lying on A little back to sitting on the side of a flat bed without using bedrails? Moving to and from a A little bed to a chair ( including a wheelchair)? Standing up from a A little chair using your arms? (e.g., wheelchair, bedside chair) Walking in hospital A little room? Climbing 3-5 steps A little with a railing? Mobility Score 18 Mobility Level [facility] Mobility 6 Walk 10 steps or more Mobility Calculator Rehab PT IP Eval Objective Appearance Patient Behavior Appropriate,Cooperative Patient Orientation Person,Situation Difficulty following none instructions Speech Pattern Clear Ambulation Patient Able to Yes Ambulate Ambulation Observation IP General Gait Wide Based Gait,Decrease Stride Lngth (R),Decrease Pattern Observation Stride Lngth (L) Ambulation Distance 30 (feet) Ambulation Assistive Rolling Walker Device Ambulation Ability Contact Guard/Hand Hold Balance Ability to Arise Able, uses arms to help Sitting Balance Steady, safe Standing Balance Steady, wide stance Dynamic Sitting Good Balance Ability Dynamic Standing Fair Balance Ability Transfers Bed Transfer Ability Minimal x 1 (25% assist) Sit to Stand Bed Minimal x 1 (25% assist) Transfer Ability Rehab PT IP prob,goals,plan Problems Date of Evaluation: 01/02/25 PT IP Problems Bed Mobility,Transfers,Gait,Balance,Self care,Safety Rehab Potential Rehab Potential Good Plan PT Intervention Plan Bed Mobility,Transfers,Gait,Balance,Self care,Safety, Therapeutic Exercise Other Intervention 1-2 times Plan PT Plan Frequency Daily Duration LOS Discharge Goals Bed Transfer Ability Supervision/Stand by Sit to Stand Chair Supervision/Stand by Transfer Ability Ambulation Distance 50 (feet) Discharge Plan PT Discharge Plan Initial physical therapy evaluation performed. Patient presents below baseline at this time in functional mobility, transfers, gait, and strength. Pt would benefit from skilled PT while at [facility] to prevent further functional decline and maximize safety with mobility. Pt most appropriate to d/c home with assistance provided by family d/t current level of mobility and home set-up. PT recommending home health PT services to address deficits. If pt does not have family assistance/supervision at home, pt would benefit from skilled inpatient rehabilitation. Eval Complexity Eval Charge Codes 43658 - Moderate Complexity PHYSICIAN CERTIFICATION: I certify the specified therapy services for Cindy Braxton are required, authorized, and reviewed every 30 days.
[2025-01-02 11:25] LABS: RBC Morphology Normal; Total Cells Counted 100
[2025-01-02 11:27] LABS: Procalcitonin 4.26 ng/mL (0.0-2.0)
[2025-01-02 12:13] LABS: Chloride 98 mmol/L (98-107); Potassium 3.9 mmoL/L (3.5-5.1); Sodium 127 mmol/L (136-145)
[2025-01-02 12:16] LABS: Anion Gap 6.9 mEq/L (5-15); Blood Urea Nitrogen 17 mg/dl (7-17); Calcium 7.8 mg/dl (8.4-10.2); Carbon Dioxide 26 mmol/L (22.0-30.0); Creatinine Clearance Estimated 42 mL/min (50-200); Creatinine,Serum 0.90 mg/dl (0.52-1.04); Estimated Glomerular Filt Rate 61 ml/min (>60); GFR (African American) 73 ML/MIN (>60); Glucose 104 mg/dl (74-100)
--- NOTE | 2025-01-02 12:20 | SW/DCPLANNER ---
Addendum entered by Sheryl Alexander 01/02/25 13:17: [facility] is able to accept patient. Camelia Langston Original Note: Spoke with patient regarding home health services once she is medically stable and ready for discharge. Patient stated that she is interested in home health services and that she does not have a preference in what agency i send her information to. Im going to fax patient's information to [facility] and will update once i hear back if they can accept patient or not. Camelia Langston
[2025-01-02] MEDS: 0.9 % SODIUM CHLORIDE 1000ML 1,000 ML 75 ML IV ×2 (12:57→23:56)
--- OUTSIDE RECORDS SUMMARY | 2025-01-02 13:18 | XMS_ITS | Encounter Summary ---
Author Organization [employer] ([place], [place], [place], [place]) Address [address] [place] [address] Care Team Providers Care Section Gang Name Role Phone Unavailable Primary Care Provider Unavailabl e Encounter Details Date Type Department Care Team (Late st Contact Info) Description 07/15/2018 Transcribed Document [facility] [place] Family Medicine [address] [place] [address] ProviderKristel MD [address] [place] [address] Social History Tobacco Use [...] 07/15/2018 10:18 PT Treatment Instructions Ordered By: DREEK DURAN MD-ORT 07/15/2018 12:49 PT Additional Treatment [...] NIRU AIKEN, PT - 07/16/2018 10:39 EDT Longterm Goals Other PT LTG Grid Goal #1 [...]
--- OUTSIDE RECORDS SUMMARY | 2025-01-02 13:18 | XMS_ITS | Clinical Summary ---
Author Organization [employer] ([place], [place], [place], [place]) Address [address] [place] [address] Care Team Providers Care Telephone Operators Supervisor Name Role Phone Unavailable Primary Care [...] Date Bryson rded Speak language other than [place] at home Not on file 03/30/2023 Want [...]
--- OUTSIDE RECORDS SUMMARY | 2025-01-02 13:19 | XMS_ITS | Encounter Summary ---
Author Organization [employer] ([place], [place], [place], [place]) Address [address] [place] [address] Care Team Providers Care Maintenance Worker House Trailer Name Role Phone Unavailable Primary Care Provider Unavailmorris e Encounter Details Date Type Department Care Team (Late st Contact Info) Description 07/15/2018 Transcribed Document [facility] [place] [address] [place] [address] ProviderKristel MD [address] [place] [address] Social History Tobacco Use Types [...]
--- OUTSIDE RECORDS SUMMARY | 2025-01-02 13:19 | XMS_ITS | Encounter Summary ---
Author Organization [employer] ([place], [place], [place], [place]) Address [address] [place] [address] Care Team Providers Care Nurseryperson Name Role Phone Unavailable Primary Care Provider Unavailabl e Encounter Details Date Type Department Care Team (Late st Contact Info) Description 07/15/2018 Transcribed Document [facility] [place] Family Medicine [place] [address] ProviderKristel MD [address] [place] [address] Social History Tobacco Use Types [...]
--- OUTSIDE RECORDS SUMMARY | 2025-01-02 13:19 | XMS_ITS | Encounter Summary ---
Author Organization [employer] ([place], [place], [place], [place]) Address [address] [place] [address] Care Team Providers Care Continuous Improvement Coordinator Name Role Phone Unavailable Primary Care Provider Unavailabl e Encounter Details Date Type Department Care Team (Late st Contact Info) Description 07/19/2018 Transcribed Document [facility] [place] [place] Family Medicine [address] [place] [address] ProviderKristel MD [address] [place] [address] Social History Tobacco Use Types [...]
--- OUTSIDE RECORDS SUMMARY | 2025-01-02 13:19 | XMS_ITS | Encounter Summary ---
Author Organization [employer] ([place], [place], [place], [place]) Address [address] [place] [address] Care Team Providers Care Soil Field Technician Name Role Phone Unavailable Primary Care Provider Unavailabl e Encounter Details Date Type Department Care Team (Late st Contact Info) Description 07/15/2018 Transcribed Document [facility] [place] [facility] [place] [address] [place] [address] ProviderKristel MD [address] [place] [address] Social History Tobacco Use Types [...] home DANA PALMA OTR/L 07/16/2018 10:58 EDT [facility] Goals, OT Other LTG Grid Goal #1 [...] Ea 15 Min : 1 DANA PALMA OTR/Mrai - 07/16/2018 10:58 EDT documented in this encounter Plan of Treatment Not on file documented as of this encounter Visit Diagnoses Not on filedocumented in this encounter
--- OUTSIDE RECORDS SUMMARY | 2025-01-02 13:19 | XMS_ITS ---
Care Plan - [facility], [facility] Created on: January 02, 2025 Cindy Braxton : 1945 Sex: Female Author Organization [facility] Address [address] [place] [address] Phone Care Team Providers Care Diabetes Specialist Name Role Phone RANDAL ALBARADO MD Primary Care Provider [phone] Bjorn Grande MD Unavailable [phone]
--- OUTSIDE RECORDS SUMMARY | 2025-01-02 13:19 | XMS_ITS | Encounter Summary ---
Author Organization [employer] ([place], [place]) Address [address] [place] [address] Care Team Providers Care Trailers And Motor Homes Salesperson Name Role Phone Unavailable Primary Care Provider Unavailabl e Encounter Details Date Type Department Care Team (Late st Contact Info) Description 07/15/2018 Transcribed Document [facility] [place] Family Medicine [address] [place] [address] ProviderKristel MD [address] [place] [address] Social History Tobacco Use Types [...] Assist, minimal Toileting Device : Commode, bedside, [id number] commode Toilet Transfer Assist Level : Assist, [...] OSCAR FRANZ OTR/L - 07/15/2018 12:28 EDT Certified Personal Trainer Goals, OT Other LTG Grid Goal #1 [...] - 07/15/2018 12:28 EDT Electronically signed by [facility], [facility] Conversion Coin Purse Assembler Cerner at 06/29/2022 1:44 PM CDT documented in this encounter Plan of Treatment Not on file documented as of this encounter Visit Diagnoses Not on filedocumented in this encounter
--- OUTSIDE RECORDS SUMMARY | 2025-01-02 13:19 | XMS_ITS | Encounter Summary ---
Author Organization [employer] ([place], [place], [place], [place]) Address [address] [place] [address] Care Team Providers Care Deck Builder Name Role Phone Unavailable Primary Care Provider Unavailabl e Encounter Details Date Type Department Care Team (Late st Contact Info) Description 07/15/2018 Transcribed Document [facility] [address] [place] [address] ProviderKristel MD [address] [place] [address] Social History Tobacco Use Types [...] Source : Stated Height Entry Format : [place] Height, Feet : 5 ft(Converted to: 152 cm, 60 Inch) Height, Inches : 1 Inch(Converted to: 0 ft 1 Inch, 2.54 cm) Clinical Height : 154.94 cm Weight Source : Standing scale Weight Entry Format : [place] Clinical Dosing Weight : 63.18 kg Weight, Pounds : 139 lb Body Surface Area (BSA) : 1.62 m2 Body Mass Index : 26.3 kg/m2 (HI) [place] Body Weight : 47 kg Nicole Coley Rn - 07/15/2018 6:34 EDT Health Histories Smoking Status : 10 or more cigarettes (1/2 pack or more)/day in last 30 days Smokeless Tobacco Status : Never Desires Tobacco Cessation Medication : No Reason for No Tobacco Cessation Medication : Refuses FDA approved medications Implant/Device Type, Hay Rake Operator and Model : left hip replacement, poss. [...] Obtained From : Patient Primary Language : Sami Preferred Communication Mode : Verbal Communication Barrier [...] Scale Risk Level : 25-45 Medium Risk [place] Fall Interventions : Adequate lighting, Bed in [...] the text rendition version of the form. [place] Coma [place] Best Motor Response : Obey commands [place] Best Verbal Response : Oriented [place] Eye Opening Response : Spontaneous Maggi Coma Score : 15 Nicole Coley Rn - 07/15/2018 6:34 EDT documented in this encounter Plan of Treatment Not on file documented as of this encounter Visit Diagnoses Not on filedocumented in this encounter
--- OUTSIDE RECORDS SUMMARY | 2025-01-02 13:19 | XMS_ITS | Encounter Summary ---
Author Organization [employer] ([place], [place], [place], [place]) Address [address] [place] [address] Care Team Providers Care Applied Psychology Professor Name Role Phone Unavailable Primary Care Provider Unavailabl e Encounter Details Date Type Department Care Team (Late st Contact Info) Description 07/15/2018 Transcribed Document [facility] [place] Family Medicine [address] [place] [address] ProviderKristel MD [address] [place] [address] Social History Tobacco Use Types [...] LABOY /Sex: 1945 Female Med Rec #: [id number] Physician: DEREK DURAN MD-ORT Financial #: [id number] Pt. Type: I Room/Bed: 513/1 Admit/Disch: 07/15/18 04:51:00 - Institution: [facility] PreOp Case Times Entry 1 In Preop 07/15/18 05:40:00 Ready for Holding n/a Room Patient Ready for 07/15/18 07:12:00 Surgery Patient Out of Preop 07/15/18 07:25:00 Patient Out of n/a Holding Room Last Modified By: CHADWICK CHAN 07/15/18 12:29:59 SJE PreOp Case Times Audit 07/15/18 12:29:59 Automation Tender: MAY Modifier: CATLETDD <+> 1 Patient Out of Preop Finalized By: CHADWICK CHAN Document Signatures Signed By: CHADWICK CHAN 07/15/18 12:30 documented in this encounter Plan of Treatment Not on file documented as of this encounter Visit Diagnoses Not on filedocumented in this encounter
--- OUTSIDE RECORDS SUMMARY | 2025-01-02 13:19 | XMS_ITS | Encounter Summary ---
Author Organization [employer] ([place], [place], [place], [place]) Address [address] [place] [address] Care Team Providers Care Sales Executive Name Role Phone Unavailable Primary Care Provider Unavailabl e Encounter Details Date Type Department Care Team (Late st Contact Info) Description 07/15/2018 Transcribed Document [facility] [place] [address] [place] [address] ProviderKristel MD [address] [place] [address] Social History Tobacco Use Types [...] LABOY /Sex: 1945 Female Med Rec #: [id number] Physician: DEREK DURAN MD-ORT Financial #: [id number] Pt. Type: I Room/Bed: / Admit/Disch: 07/15/18 04:51:00 - [place] [facility] [place] Case Attendance Entry 1 Entry 2 Entry 3 Case Attendee Ney Ann ST Austin, Martha Wells RN Role Performed Scrub, Second Scrub, First Rn Hematology, First Time In 07/15/18 07:28:00 07/15/18 07:28:00 [...] Brown, Frankie Brooks, Aysha Guerra MD-ORT Tech Child And Family Therapist Role Performed Surgeon/Proceduralist, Assistive Personnel Aboriginal Education Teacher First Time In 07/15/18 07:59:00 07/15/18 07:28:00 [...] Case Attendee CLARITZA VEGAS CSA LUNSFORD, JAMES, CARPENTER MAHAMED BE, PAC Role Performed Weigh Machine Operator, First CARPENTER/Nurse Bank Secrecy Act Officer Physician coding assistant Time In 07/15/18 07:28:00 07/15/18 07:28:00 [...] [facility] IntraOp Case Attendance Audit 07/15/18 09:35:34 Publications Sales Representative: KARLOS Modifier: KARLOS 8 <+> Time Out 8 <*> Procedure Hip Total Anterior Approach 9 <+> Time Out 9 <*> Procedure Hip Total Anterior Approach 10 <+> Time Out 10 <*> Procedure Hip Total Anterior Approach 07/15/18 09:35:33 Publications Sales Representative: KARLOS Modifier: KARLOS 1 <+> Time Out [...] Procedure Hip Total Anterior Approach 07/15/18 08:26:33 Publications Sales Representative: KARLOS Modifier: KARLOS 7 <+> Time Out 7 <*> Procedure Hip Total Anterior Approach 9 <*> Time In 07/15/18 07:28:00 9 <*> Procedure Hip Total Anterior Approach 07/15/18 08:01:40 Publications Sales Representative: KARLOS Modifier: KARLOS 1 <*> Case Attendee DEREK DURAN MD-ORKevin 1 <*> Role Performed Surgeon/Proceduralist, First 1 <*> Time In 07/15/18 07:28:00 1 <*> Procedure Hip Total Anterior Approach 2 <*> Case Attendee Martha Torrez, RN 2 <*> Role Performed Rn Hematology, First 2 <*> Time In 07/15/18 07:28:00 [...] Approach 5 <*> Case Attendee Deedee Brown, Mission Worker 5 <*> Role Performed Assistive Personnel 5 <*> Time In 07/15/18 07:28:00 5 <*> Procedure Hip Total Anterior Approach 6 <*> Case Attendee CLARITZA VEGAS, CSA 6 <*> Role Performed Weigh Machine Operator, First 6 <*> Time In 07/15/18 07:28:00 6 <*> Procedure Hip Total Anterior Approach 7 <*> Case Attendee MAHAMED BE, MIGUELINA 7 <*> Role Performed Physician coding assistant 7 <*> Time In 07/15/18 07:28:00 7 <*> Procedure Hip Total Anterior Approach 8 <*> Case Attendee OTHER, ATTENDEE 8 <*> Role Performed Vendor 8 <*> Time In 07/15/18 07:28:00 8 <*> Procedure Hip Total Anterior Approach 8 <-> Other Attendee JER DIXON 9 <*> Case Attendee Aysha Brooks, Child And Family Therapist 9 <*> Role Performed Aboriginal Education Teacher 9 <*> Time In 07/15/18 07:28:00 9 <*> Procedure Hip Total Anterior Approach 10 <*> Case Attendee CELSO QUISPE CRNA 10 <*> Role Performed CARPENTER/Nurse Bank Secrecy Act Officer 10 <+> Time In 10 <*> Procedure Hip Total Anterior Approach 10 <+> Other Attendee 07/15/18 07:52:23 Publications Sales Representative: KARLOS Modifier: KARLOS 1 <+> Time In [...] [facility] IntraOp Case Times Audit 07/15/18 09:35:17 Publications Sales Representative: KARLOS Modifier: JORDYNBLAND <+> 1 Out Room Time <+> 1 Stop Time 07/15/18 09:08:56 Publications Sales Representative: KARLOS Modifier: JORDYNBLAND <+> 1 Stop Time 07/15/18 08:01:26 Publications Sales Representative: MARTHABLAND Modifier: JORDYNBLAND <+> 1 Start Time [...] [facility] IntraOp Counts Verification Audit 07/15/18 08:50:53 Publications Sales Representative: KARLOS Modifier: SALENAAND <+> 2 Procedure <+> [...] RN 07/15/18 07:07:36 [facility] IntraOp General Case Train Brakeman 1 Case Information OR OR 01 E Case Level 1 Room Verified Yes Wound Class I - Clean Specialty SN Orthopedic Anesthesia Type General ASA Class 4 Diagnosis Preop Diagnosis DJD RIGHT HIP Postop Same As Preop No Postop Diagnosis DICTATED BY MD Last Modified By: Martha Torrez RN 07/15/18 07:53:11 [facility] [place] Case Data Audit 07/15/18 07:53:11 Publications Sales Representative: KARLOS Modifier: KARLOS <+> 1 ASA Class <+> 1 Preop Diagnosis [facility] IntraOp Implant Log Entry 1 Entry 2 Entry 3 Type Implant (Synthetic) Implant (Synthetic) Implant (Synthetic) Implant Log Implant Type Hardware Hardware Hardware Tissue Implant Type Implant SHELL ACET LOGICAL 48MM LNER LGCL CP 50MM STEM HIP COXA CLLR Identification -[id number] ORIGIN [id number] Description Implant Quantity 1 1 1 Implant Site RIGHT HIP RIGHT HIP RIGHT HIP Implant Identification Model Number Implant Identification Serial Number Implant [id number] Identification Lot Number Implant Paxeon Reconstruction Paxeon Reconstruction Paxeon Reconstruction Identification Type Mapper Name: Implant [id number] Identification Catalog Number Implant Size Implant Has an Yes Yes Yes Expiration Date Implant Expiration 06/10/23 02/08/23 04/11/23 Date Wasted Radioactive Material Time Implanted Tissue Implant Continue for Tissue Implant Documentation Tissue Identification Number Graft Prep Per Type Mapper Instructions: Tissue Preparation Method: Reconstitution Solution: Reconstitution Solution Lot Number Reconstitution Solution Expiration Date: Thawing Solution Thawing Solution Lot Number Thawing Solution Expiration Date Preparation Materials, Other Preparation Materials, Other Lot Number Preparation Materials, Other Expiration Date Tissue Prepared/Processed By Type Mapper Paperwork Completed Implant Type Comment Last Modified By: Martha Torrez RN Bland, Jordyn A, RN Bland, Jordyn A, RN 07/15/18 08:26:09 07/15/18 08:26:09 07/15/18 08:47:20 Entry 4 Type Implant (Synthetic) Implant Log Implant Type Hardware Tissue Implant Type Implant HEAD FEM CERC [id number] 32MM Identification -[id number] Description Implant Quantity 1 Implant Site RIGHT HIP Implant Identification Model Number Implant Identification Serial Number Implant [id number] Identification Lot Number Implant Paxeon Reconstruction Identification Type Mapper Name: Implant [id number] Identification Catalog Number Implant Size Implant Has an Yes Expiration Date Implant Expiration 04/11/23 Date Wasted Radioactive Material Time Implanted Tissue Implant Continue for Tissue Implant Documentation Tissue Identification Number Graft Prep Per Type Mapper Instructions: Tissue Preparation Method: Reconstitution Solution: Reconstitution Solution Lot Number Reconstitution Solution Expiration Date: Thawing Solution Thawing Solution Lot Number Thawing Solution Expiration Date Preparation Materials, Other Preparation Materials, Other Lot Number Preparation Materials, Other Expiration Date Tissue Prepared/Processed By Type Mapper Paperwork Completed Implant Type Comment Last Modified By: Martha Torrez RN 07/15/18 08:47:20 [facility] [place] Implant Log Audit 07/15/18 08:47:20 Publications Sales Representative: KARLOS Modifier: KARLOS <+> 3 Implant Identification Description <+> 3 Implant Identification Lot Number <+> 3 Implant Identification Type Mapper Name: <+> 3 Implant Expiration Date <+> 3 Implant Identification Catalog Number <+> 4 Implant Identification Description <+> 4 Implant Identification Lot Number <+> 4 Implant Identification Type Mapper Name: <+> 4 Implant Expiration Date <+> 4 Implant Identification Catalog Number 07/15/18 08:26:09 Publications Sales Representative: KARLOS Modifier: KARLOS <+> 1 Implant Identification Description <+> 1 Implant Identification Lot Number <+> 1 Implant Identification Type Mapper Name: <+> 1 Implant Expiration Date <+> 1 Implant Identification Catalog Number <+> 2 Implant Identification Description <+> 2 Implant Identification Lot Number <+> 2 Implant Identification Type Mapper Name: <+> 2 Implant Expiration Date <+> 2 Implant Identification Catalog Number 07/15/18 07:54:53 Publications Sales Representative: KARLOS Modifier: KARLOS <+> 3 Implant Site [...] vancomycin 1Gm vial - ANESTHETIC 1000MG/10 ML [id number] COCKTAIL-ROGER [id number] Combo Med List Time Administered Route of [...] Intra Op Sign Out Audit 07/15/18 09:35:26 Publications Sales Representative: KARLOS Modifier: KARLOS <+> 1 RN Sign [...] [facility] IntraOp Surgical Procedures Audit 07/15/18 09:08:57 Publications Sales Representative: KARLOS Modifier: KARLOS <+> 1 Start <+> [...] [facility] IntraOp Time Out Audit 07/15/18 08:01:30 Publications Sales Representative: KARLOS Modifier: KARLOS 1 <+> Time Out Pause Time 1 <*> Procedure to be Performed Hip Total Anterior Approach 07/15/18 07:56:31 Publications Sales Representative: KARLOS Modifier: KARLOS 1 <+> Beta Pat Administered 1 <*> Procedure to be Performed Hip Total Anterior Approach [facility] IntraOp X-Ray and Images Entry 1 X-Ray/Imaging Type Fluoroscopy Fluoroscopy Type C-Arm Site RIGHT HIP Pulley Worker Name Aysha Brooks, Child And Family Therapist Protective Devices Yes Used Last Modified By: Martha Torrez RN 07/15/18 07:56:43 Case Comments <None> Finalized By: Martha Torrez, RN Document Signatures Signed By: Martha Torrez RN 07/15/18 09:37 documented in this encounter Plan of Treatment Not on file documented as of this encounter Visit Diagnoses Not on filedocumented in this encounter
--- OUTSIDE RECORDS SUMMARY | 2025-01-02 13:19 | XMS_ITS | Encounter Summary ---
Author Organization [employer] ([place], [place], [place], [place]) Address [address] [place] [address] Care Team Providers Care Graduate Student Name Role Phone Unavailable Primary Care Provider Unavailabl e Encounter Details Date Type Department Care Team (Late st Contact Info) Description 07/15/2018 Transcribed Document [facility] [place] [address] [place] [address] ProviderKristel MD [address] [place] [address] Social History Tobacco Use Types [...] Policy Numbers : Insurance 1 Health Plan: [employer] PPO Policy Number: [id number] Authorization Number: [id number] Insurance Primary Name : When You Wish Medicare Authorization Status-Primary : Awaiting callback Authorization Number-Primary : [id number] Authorized Service Begin Date-Primary : 07/15/2018 EDT [...]
--- OUTSIDE RECORDS SUMMARY | 2025-01-02 13:19 | XMS_ITS | Encounter Summary ---
Author Organization [employer] ([place], [place], [place], [place]) Address [address] [place] [address] Care Team Providers Care Environmental Adviser Name Role Phone Unavailable Primary Care Provider Unavailabl e Encounter Details Date Type Department Care Team (Late st Contact Info) Description 07/15/2018 Transcribed Document [facility] [place] [address] [place] [address] ProviderKristel MD [address] [place] [address] Social History Tobacco Use Types [...] : Right Right UE Active ROM : [facility] Right UE Strength : [facility] Left UE Active ROM : [facility] Left UE Strength : [facility] VERO TAMEZ, PT - 07/15/2018 12:39 [...] VERO TAMEZ, PT - 07/15/2018 12:39 EDT Rn Dermatology Goals Other PT LTG Grid Goal #1 [...]
--- OUTSIDE RECORDS SUMMARY | 2025-01-02 13:19 | XMS_ITS | Encounter Summary ---
Author Organization Healthcare Address [address] [place] [address] Care Team Providers Care Owner Oral Surgeon Name Role Phone Nae Cortés NATURAL RESOURCE ECONOMIST Primary Care Provider [phone] Encounter Details Date Type Department Care Team (Late st Contact Info) Description 09/10/2024 Orders Only External Location [address] [place] [phone] Roselia Washington APRN [address] [facility] [address] [address] Social History Tobacco Use Types [...] [facility] [address] [place] [phone] Sergei Gan MD [address] [place] [id number] 04/17/2025 11:00 AM EST Appointment [facility] [address] [place] [phone] documented as of this encounter Procedures Procedure Name Priority Date/Time Associated Diagnosis Comments CT OUTSIDE IMAGES 09/10/2024 1:16 PM EDT documented in this encounter Results * CT OUTSIDE IMAGES (09/10/2024 1:16 PM EDT) Anatomical Region Laterality Modality Computed Tomogra phy 09/10/2024 1:16 PM EDT Roselia Washington NATURAL RESOURCE ECONOMIST IMG CT PROCEDURES Arianna hurd Result documented in this encounter Visit Diagnoses Not on filedocumented in this encounter Care Teams Owner Oral Surgeon Relationship Specialty Start Date End Date Nae Cortés APRN [address] [place] [address] PCP - General 09/05/24 documented as of this encounter
--- OUTSIDE RECORDS SUMMARY | 2025-01-02 13:19 | XMS_ITS | Encounter Summary ---
Author Organization [employer] ([place], [place], [place], [place]) Address [address] [place] [address] Care Team Providers Care Liability Claims Manager Name Role Phone Unavailable Primary Care Provider Unavailabl e Encounter Details Date Type Department Care Team (Late st Contact Info) Description 07/16/2018 Transcribed Document [facility] [place] [facility] [place] [address] ProviderKristel MD [address] [place] [address] Social History Tobacco Use Types [...]
--- OUTSIDE RECORDS SUMMARY | 2025-01-02 13:19 | XMS_ITS | Encounter Summary ---
Author Organization [employer] ([place], [place], [place], [place]) Address [address] [place] [address] Care Team Providers Care Business Objects Developer Name Role Phone Unavailable Primary Care Provider Grady e Encounter Details Date Type Department Care Team (Late st Contact Info) Description 07/15/2018 Transcribed Document [facility] [place] [address] [place] [address] ProviderKristel MD [address] [place] [address] Social History Tobacco Use Types [...] LPN Intervention Information: oxyCODONE Performed by Karina Zmimer LPN on 07/15/2018 22:33:00 EDT oxyCODONE,10mg Oral,Pain [...]
--- OUTSIDE RECORDS SUMMARY | 2025-01-02 13:19 | XMS_ITS | Encounter Summary ---
Author Organization [employer] ([place], [place], [place], [place]) Address [address] [place] [address] Care Team Providers Care Triage Assistant Name Role Phone Unavailable Primary Care Provider Unavailabl e Encounter Details Date Type Department Care Team (Late st Contact Info) Description 07/22/2018 Transcribed Document [facility] [place] [address] [place] [address] ProviderKristel MD [address] [place] [address] Social History Tobacco Use [...] Policy Numbers : Insurance 1 Health Plan: [employer] PPO Policy Number: [id number] Authorization Number: [id number] Insurance Primary Name : [employer] Medicare Authorization Status-Primary : Notification only Reference Number-Primary : [id number] Authorization Number-Primary : [id number] Authorized Service Begin Date-Primary : 07/15/2018 EDT Authorization Comments-Primary : approved per availity for inpt Historical Authorization Comments-Primary : Comment 1: Uploaded clinicals to [employer] Medicare via [employer] by . (ERICK JONES RN-Utilization Review 07/15/2018 15:49) LYNN REID RN-Utilization Review - 07/22/2018 12:50 EDT Electronically signed by [facility], [facility] Conversion Floor Sweeper Cerner at 06/29/2022 1:34 PM CDT documented in this encounter Plan of Treatment Not on file documented as of this encounter Visit Diagnoses Not on filedocumented in this encounter
--- OUTSIDE RECORDS SUMMARY | 2025-01-02 13:19 | XMS_ITS | Referral Summary ---
Author Organization [employer] ([place], [place], [place], [place]) Address [address] [place] [address] Care Team Providers Care Core Drier Name Role Phone Unavailable Primary Care Provider [...] Date Bryson rded Speak language other than [place]orese at home Not on file 03/30/2023 Want [...]
--- OUTSIDE RECORDS SUMMARY | 2025-01-02 13:19 | XMS_ITS | Encounter Summary ---
Author Organization [employer] ([place], [place], [place], [place]) Address [address] [place] [address] Care Team Providers Care Caisson Worker Name Role Phone Unavailable Primary Care Provider Unavailabl e Encounter Details Date Type Department Care Team (Late st Contact Info) Description 07/15/2018 Transcribed Document [facility] [place] [address] [place] [address] ProviderKristel MD [address] [place] [address] Social History Tobacco Use Types [...] Advance Directive Verified/on Chart : No Nilda Clarso Rn - 07/15/2018 16:37 EDT Anesthesia/Transfusion History [...] Obtained From : Patient Primary Language : Macedonian Preferred Communication Mode : Verbal Communication Barrier [...] Level : 47 or > High Risk [place] Fall Interventions : Adequate lighting, Bed in [...] : Refuses FDA approved medications Implant/Device Type, Print Developer Automatic and Model : left hip replacement, poss. [...] Source : Stated Height Entry Format : [place] Height, Feet : 5 ft(Converted to: 152 cm, 60 Inch) Height, Inches : 1 Inch(Converted to: 0 ft 1 Inch, 2.54 cm) Clinical Height : 154.94 cm Weight Source : Standing scale Weight Entry Format : [place] Clinical Dosing Weight : 63.18 kg Weight, Pounds : 139 lb Body Surface Area (BSA) : 1.62 m2 Body Mass Index : 26.3 kg/m2 (HI) [place] Body Weight : 47 kg Nilda Claros [...]
--- OUTSIDE RECORDS SUMMARY | 2025-01-02 13:19 | XMS_ITS | Encounter Summary ---
Author Organization [employer] ([place], [place], [place], [place]) Address [address] [place] [address] Care Team Providers Care Manufacturing Technician Name Role Phone Unavailable Primary Care Provider Unavailabl e Encounter Details Date Type Department Care Team (Late st Contact Info) Description 07/15/2018 Transcribed Document [facility] [place] [address] [place] [address] ProviderKristel MD [address] [place] [address] Social History Tobacco Use [...] Kristel ProviderMD - 07/15/2018 8:01 AM CDT [facility] [place] PACU Summary Primary Physician: DEREK DURAN MD-ORKevin Finalized Date/Time: 07/15/18 10:28:25 Pt. Name: EDSON LABOY /Sex: 1945 Female Med Rec #: [id number] Physician: DEREK DURAN MD-ORT Financial #: [id number] Pt. Type: I Room/Bed: 3/ Admit/Disch: 07/15/18 04:51:00 - Institution: [facility] OR PACU Case Times Entry 1 In PACU I 07/15/18 09:21:00 Ready for PACU 07/15/18 09:51:00 Discharge Discharge from PACU 07/15/18 10:10:00 I Last Modified By: Nikki Wang RN 07/15/18 10:27:52 [facility] Main OR PACU Case Times Audit 07/15/18 10:27:52 Multimedia Producer: HELFEP Modifier: HELFEP <+> 1 Ready for PACU Discharge <+> 1 Discharge from PACU I [facility] Main OR PACU Acuity Entry 1 Start Time 07/15/18 09:51:00 Stop Time 07/15/18 10:10:00 Acuity Level [facility] PACU Acuity I Last Modified By: Nikki Wang RN 07/15/18 10:28:21 Finalized By: Nikki Wang RN Document Signatures Signed By: Nikki Wang RN 07/15/18 10:28 Electronically signed by [facility] Conversion Ice Cream Scooper Cerner at 06/29/2022 1:40 PM CDT documented in this encounter Plan of Treatment Not on file documented as of this encounter Visit Diagnoses Not on filedocumented in this encounter
--- OUTSIDE RECORDS SUMMARY | 2025-01-02 13:19 | XMS_ITS | Encounter Summary ---
Author Organization [employer] ([place], [place], [place], [place]) Address [address] [place] [address] Care Team Providers Care Shellfish Harvester Name Role Phone Unavailable Primary Care Provider Unavailabl e Encounter Details Date Type Department Care Team (Late st Contact Info) Description 07/15/2018 Transcribed Document [facility] [place] [address] [place] [address] ProviderKristel MD [address] [place] [address] Social History Tobacco Use Types [...]
--- OUTSIDE RECORDS SUMMARY | 2025-01-02 13:20 | XMS_ITS | Encounter Summary ---
Author Organization [employer] ([place], [place], [place], [place]) Address [address] [place] [address] Care Team Providers Care Melter Assistant Name Role Phone Unavailable Primary Care Provider Unavailabl e Encounter Details Date Type Department Care Team (Late st Contact Info) Description 07/16/2018 Transcribed Document [facility] [place] [address] [place] [address] ProviderKristel MD [address] [place] [address] Social History Tobacco Use Types [...]
--- OUTSIDE RECORDS SUMMARY | 2025-01-02 13:20 | XMS_ITS | Encounter Summary ---
Author Organization [facility] ([place], [place], [place], [place]) Address [address] [place] [address] Care Team Providers Care Air And Missile Defense Crewmember Name Role Phone Unavailable Primary Care Provider Unavailabl e Encounter Details Date Type Department Care Team (Late st Contact Info) Description 06/28/2018 Transcribed Document [facility] [place] [facility] [place] [address] ProviderKristel MD [address] [place] [address] Social History Tobacco Use Types [...] Source : Stated Height Entry Format : [place] Height, Feet : 5 ft(Converted to: 152 cm, 60 Inch) Height, Inches : 1 Inch(Converted to: 0 ft 1 Inch, 2.54 cm) Clinical Height : 154.94 cm Weight Source : Standing scale Weight Entry Format : [place] Clinical Dosing Weight : 65 kg Weight, Pounds : 143 lb Body Surface Area (BSA) : 1.64 m2 Body Mass Index : 27.1 kg/m2 (HI) [place] Body Weight : 47 kg CLARISSA GUERRERO [...] : No Tuberculosis Symptoms : None CLARISSA GUERREOR RN - 06/28/2018 10:15 EDT Anesthesia/Transfusion History [...] #2 Relationship : daughter Primary Language : Estonian Communication Barrier : None CLARISSA GUERRERO RN [...]
--- OUTSIDE RECORDS SUMMARY | 2025-01-02 13:20 | XMS_ITS | Clinical Summary ---
Author Organization [facility] , [facility] Address [address] [place] [address] Phone Care Team Providers Care Bread Jockey Name Role Phone RANDAL ALBARADO MD Primary Care Provider [phone] Bjorn Grande MD Unavailable [phone] Reason for Visit and Chief Complaint BRACE FITTING Problems Includes: Problems addressed during this encounter and other active Problems All Visits Onset Date Resolved Date Provider Condition S tatus Joint Pain Hip Left 11/10/2021 Masood basilio PA-C Active Last Documented On 2 9:30AM ; [facility], [facility] Joint Pain Hip Right 10/22/2015 Raúl Merritt MD Active Last Documented On 6 12:14PM ; [facility], [facility] Plan of Treatment No Plan of [...] On 2 10:28AM By Alem Aden ; [facility], [facility] ALPRAZolam 0.5 MG Oral Tablet 11/10/2021 Provider: Diagnosis: Last Documented On 2 10:28AM By Alem Aden ; [facility], [facility] Diclofenac Sodium 75 MG Oral Tablet Delayed Release Provider: Diagnosis: Last Documented On 2 10:29AM By Alem Aden ; [facility] Nadolol 40 MG Oral Tablet 09/27/2021 Provider: Sa yogi Cortés APRN Diagnosis: Last Documented On 2 10:29AM By Alem Aden ; [facility] Dicyclomine HCl 20 MG Oral Tablet 09/15/2021 Provide r: Nae Cortés APRN Diagnosis: Last Documented On 2 10:29AM By Alem Aden ; [facility] Citalopram Hydrobromide 20 M G Oral Tablet 08/12/2021 Provider: Nae jones APRN Diagnosis: Last Documented On 2 10:29AM By Alem Aden ; [facility], [facility] Losartan Potassium 100 MG Or al Tablet 07/14/2021 Provider: Nae jones APRN Diagnosis: Last Documented On 2 10:29AM By Alem Aden ; [facility] Furosemide 20 MG Oral Tablet 05/03/2021 Provider: Nae Cortés APRN Diagnosis: Last Documented On 2 10:29AM By Alem Aden ; [facility], [facility] Medications Administered Includes: Administered Medications from [...] Active Last Documented On 2 9:30AM ; [facility] Diclofenac Potassium Allergy 04/22/2018 Active Last Documented On 2 9:30AM ; [facility], [facility] Antihistamine Decongestant Allergy 04/22/2018 Active Last Documented On 2 9:30AM ; [facility], [facility] Encounters Encounter Provider Location Date Check-In Time Check-Out Time Diagnosis BRACE FITTING Raúl Merritt MD [facility] 9 9:15AM 11:59PM Insurance Includes: Active Insurance Policies Plan Name Member ID Group # Subscriber Relationship Effect arcelia Dates 1 - [employer] [id number] Cindy Vicenta Fox Self 01/06 - Unknown Clinical Notes Includes: Clinical Notes from this encounter No Clinical Notes Recorded
--- OUTSIDE RECORDS SUMMARY | 2025-01-02 13:20 | XMS_ITS | Encounter Summary ---
Author Organization [employer] ([place], [place], [place], [place]) Address [address] [place] [address] Care Team Providers Care Bank Clerk Name Role Phone Unavailable Primary Care Provider Unavailabl e Encounter Details Date Type Department Care Team (Late st Contact Info) Description 07/16/2018 Transcribed Document [facility] [address] [place] [address] Raj Ching MD [address] [place] [address] Social History Tobacco Use Types Packs/Day [...] Signature: __Cadence perez RN DS Phone #: __[phone] This is a permanent part of the Medical Record documented in this encounter Plan of Treatment Not on file documented as of this encounter Visit Diagnoses Not on filedocumented in this encounter
--- OUTSIDE RECORDS SUMMARY | 2025-01-02 13:20 | XMS_ITS | Encounter Summary ---
Author Organization [employer] ([place], [place], [place], [place]) Address [address] [place] [address] Care Team Providers Care Ice Grinder Name Role Phone Unavailable Primary Care Provider Unavailabl e Encounter Details Date Type Department Care Team (Late st Contact Info) Description 07/16/2018 Transcribed Document [facility] Family Medicine [address] [place] [address] ProviderKristel MD [address] [place] [address] Social History Tobacco Use [...] 07/16/2018 9:54 EDT by NAYA MINOR Care Management-Policy Adviser Care Management Progress Note Discharge Arrangements : [...] Acute Providers : Yes MILY, NAYA, Care Management-Policy Adviser - 07/16/2018 9:54 EDT Electronically signed by Rosario, [facility] Conversion Corrosion Prevention Metal Sprayer Cerner at 06/29/2022 1:33 PM CDT documented in this encounter Plan of Treatment Not on file documented as of this encounter Visit Diagnoses Not on filedocumented in this encounter
--- OUTSIDE RECORDS SUMMARY | 2025-01-02 13:20 | XMS_ITS | Encounter Summary ---
Author Organization [employer] ([place], [place], [place], [place]) Address [address] [place] [address] Care Team Providers Care Bilingual Administrative Assistant Name Role Phone Unavailable Primary Care Provider Unavailabl e Encounter Details Date Type Department Care Team (Late st Contact Info) Description 07/16/2018 Transcribed Document [facility] Family Medicine [address] [place] [address] ProviderKristel MD [address] [place] [address] Social History Tobacco Use Types [...]
--- OUTSIDE RECORDS SUMMARY | 2025-01-02 13:20 | XMS_ITS | Encounter Summary ---
Author Organization [employer] ([place], [place], [place], [place]) Address [address] [place] [address] Care Team Providers Care Aeronautics Teacher Name Role Phone Unavailable Primary Care Provider Unavailabl e Encounter Details Date Type Department Care Team (Late st Contact Info) Description 07/16/2018 Transcribed Document [facility] Radiology 1 [place] [address] Ronal Robert MD [address] [place] [address] Social History Tobacco Use Types Packs/Day [...] tab QHS Primary Care Provider RANDAL ALBARADO (REF)[facility] Time spent 35 minutes documented in this encounter Plan of Treatment Not on file documented as of this encounter Visit Diagnoses Not on filedocumented in this encounter
--- OUTSIDE RECORDS SUMMARY | 2025-01-02 13:20 | XMS_ITS | Encounter Summary ---
Author Organization [employer] ([place], [place], [place], [place]) Address [address] [place] [address] Care Team Providers Care Reimbursement Director Name Role Phone Unavailable Primary Care Provider Unavailabl e Encounter Details Date Type Department Care Team (Late st Contact Info) Description 07/15/2018 Transcribed Document [facility] Radiology 1 [place] [address] [place] [address] [place] [address] [address] Social History Tobacco Use Types [...] None. Primary Care Provider RANDAL ALBARADO (MD [facility] Chief Complaint Right hip pain [...] Medical SVT (supraventricular tachycardia) / SNOMED CT 64998083 / Confirmed Hypertension / SNOMED CT 7345885995 / Confirmed Hypothyroidism / SNOMED CT 64820318 / Confirmed Anxiety disorder / SNOMED CT 619069714 / Confirmed COPD (chronic obstructive pulmonary disease) / SNOMED CT 33985271 / Confirmed Osteoarthritis / SNOMED CT 8450102530 / Confirmed Hyperlipidemia / SNOMED CT 38566583 / Confirmed At risk for sleep apnea / IMO [id number] / Confirmed, Active Problems (8) Anxiety disorder At risk for sleep apnea COPD (chronic obstructive pulmonary disease) Hyperlipidemia Hypertension Hypothyroidism Osteoarthritis SVT (supraventricular tachycardia) Histories Past Medical History: Active Problems (8) Anxiety disorder At risk for sleep apnea COPD (chronic obstructive pulmonary disease) Hyperlipidemia Hypertension Hypothyroidism Osteoarthritis SVT (supraventricular tachycardia) Family History: Significant for cancer Procedure history: Thyroidectomy (40293915). Tonsillectomy (707864854). Cholecystectomy (99666363). Tubal ligation (456440736). - Spontaneous vaginal delivery. left hip replacment. [...]
--- OUTSIDE RECORDS SUMMARY | 2025-01-02 13:20 | XMS_ITS | Encounter Summary ---
Author Organization [employer] ([place], [place]) Address [address] [place] [address] Care Team Providers Care Library Services Assistant Name Role Phone Unavailable Primary Care Provider Unavailabl e Encounter Details Date Type Department Care Team (Late st Contact Info) Description 07/16/2018 Transcribed Document [facility] Family Medicine [address] [place] [address] ProviderKristel MD [address] [place] [address] Social History Tobacco Use Types [...] 07/16/2018 9:54 EDT by NAYA MINOR Care Management-Laboratory Inspector Final Discharge Planning Discharge Arrangements : Patient Post-Acute Information Patient Name: CINDY BRAXTON Gender: Female : [birth year] Age: 73 Years No Post-Acute Placement(s) Listed No Post-Acute Service(s) Listed No [place] Referral(s) Listed NAYA MINOR, Care Management-Laboratory Inspector - 07/16/2018 9:54 EDT Accts Placement Outside [facility] Account #1 Service : [facility] Organization : PHYSICAL THERAPY NAYA MINOR Care Management-Laboratory Inspector - 07/16/2018 9:54 EDT Discharge To Care Management : Home Health Services (Related/SOC within 3 days)-06 NAYA MINOR Care Management-Laboratory Inspector - 07/16/2018 9:54 EDT Electronically signed by Rosario [facility] Conversion Machine Icer Cerner at 06/29/2022 1:31 PM CDT documented in this encounter Plan of Treatment Not on file documented as of this encounter Visit Diagnoses Not on filedocumented in this encounter
--- OUTSIDE RECORDS SUMMARY | 2025-01-02 13:20 | XMS_ITS | Clinical Summary ---
Author Organization [facility] , [facility] Address [address] [place] [address] Phone Care Team Providers Care Offset Lithographic Press Operator Name Role Phone RANDAL ALBARADO MD Primary Care Provider [phone] Bjorn Grande MD Unavailable [phone] [...] Documented On 2 9:30AM ; [facility] Past Visits Onset Date Resolved Date Provider Condition Status Joint Pain Hip Right 10/22/2015 Raúl Merritt MD Active Last Documented On 6 12:14PM ; [facility] Plan of Treatment Fall Risk Assessment: [...] - Last Documented On 11/10/2021 1:23PM ; [facility] 1. Hx left total hip arthroplasty 7 years ago, implant appears to be well fixed well-positioned 2. lumbar radiculopathy with possible SI joint pain. Patient has been seen by Dr. Payne's office in [place] and has had multiple rounds of cortisone injection. She has been offered an SI joint fusion as well and has a spinal cord stimulator. At this point patient wishes to return home with her family and discuss further options. If she wishes for second opinion would send referral to Dr. Bjorn Rosas at [facility] for spine work-up of left-sided low back pain and leg - Last Documented On 11/10/2021 1:23PM ; [facility], [facility] Instructions to patient Instructions for patient to see pcp for bp Last Documented On 2 9:30AM ; [facility] Intervention and counseling on cessation of tobacco use Last Documented On 2 9:30AM ; [facility] Education and Decision Aids were provided during visit for: Health seminar on smoking ce ssation Last Documented On 2 9:30AM ; [facility] Assessments Includes: Assessments from this encounter Findings History of left total hip arthroplasty, 7 years postop - Last Documented On 11/10/2021 1:23PM ; [facility] left leg radiculopathy as well as left SI joint pain - Last Documented On 11/10/2021 1:23PM ; [facility], [facility] Instructions Includes: Instructions from this encounter Instructions to patient Instructions for patient to see pcp for bp Last Documented On 2 9:30AM ; [facility] Intervention and counseling on cessation of tobacco use Last Documented On 2 9:30AM ; [facility] Education and Decision Aids were provided during visit for: Health seminar on smoking ce ssation Last Documented On 2 9:30AM ; [facility], [facility] Medical Equipment - Implanted Devices Includes: Current Devices No Medical Equipment Recorded Medications Includes: Medications discussed during this encounter and other current Medications Discontinued / Stopped on this date on 04/22/2018 Metoprolol Tartrate 50MG Oral Tablet Prov ider: Diagnosis: Last Documented On 2 10:28AM By Alem Aden ; [facility], [facility] Triamterene-HCTZ 37.5-25MG Oral Capsule P rovider: Diagnosis: Last Documented On 2 10:28AM By Alem Aden ; [facility], [facility] Current Medications (continue as prescribed) Levothyroxine Sodium 150 MCG Oral Tablet 11/10/2021 Provider: Diagnosis: Last Documented On 2 10:28AM By Alem Aden ; [facility] ALPRAZolam 0.5 MG Oral Tablet 11/10/2021 Provider: Diagnosis: Last Documented On 2 10:28AM By Alem Aden ; [facility], [facility] Diclofenac Sodium 75 MG Oral Tablet Delayed Release Provider: Diagnosis: Last Documented On 2 10:29AM By Alem Aden ; [facility], [facility] Nadolol 40 MG Oral Tablet 09/27/2021 Provider: Sa yogi Cortés APRN Diagnosis: Last Documented On 2 10:29AM By Alem Aden ; [facility], [facility] Dicyclomine HCl 20 MG Oral Tablet 09/15/2021 Provide r: Nae Cortés APRN Diagnosis: Last Documented On 2 10:29AM By Alem Aden ; [facility], [facility] Citalopram Hydrobromide 20 M G Oral Tablet 08/12/2021 Provider: Nae jones APRN Diagnosis: Last Documented On 2 10:29AM By Alem Aden ; [facility], [facility] Losartan Potassium 100 MG Or al Tablet 07/14/2021 Provider: Nae jones APRN Diagnosis: Last Documented On 2 10:29AM By Alem Aden ; [facility], [facility] Furosemide 20 MG Oral Tablet 05/03/2021 Provider: Nae Cortés APRN Diagnosis: Last Documented On 2 10:29AM By Alem Aden ; [facility], [facility] Past Medications on file Colace 100MG Oral Capsule 07/09/2018 - 10/07/2018 Provider: Raúl loja MD Diagnosis: 1-2 tabs daily FOR SURGERY DO NOT FILL UNTIL 07/15/18 Last Documented On 9 11:30AM By Elizabeth Ricardo ; [facility], [facility] Dilaudid 2MG Oral Tablet 07/09/2018 - 07/11/2018 Provi mitali: Raúl Merritt MD Diagnosis: 1-2 po q6h prn pain (RESCUE PAIN)FOR SURGERY DO NOT FILL UNTIL 07/15/18 Last Documented On 9 11:30AM By Elizabeth Ricardo ; [facility], [facility] Neurontin 300MG Oral Capsule 07/09/2018 - 10/07/2018 Provider: Raúl loja MD Diagnosis: 1 every bedtime FOR SURGER Y DO NOT FILL UNTIL 07/15/18 Last Documented On 9 11:32AM By Elizabeth Ricardo ; [facility], [facility] traMADol HCl 50MG Oral Tablet 07/09/2018 - 07/14/2018 Provider: Raúl loja MD Diagnosis: 1-2 po q6h prn painFOR GREER KIESHA DO NOT FILL UNTIL 07/15/18 Last Documented On 9 11:33AM By Elizabeth Ricardo ; [facility], [facility] oxyCODONE HCl 5MG Oral Tablet 07/09/2018 - 07/14/2018 Provider: Raúl loja MD Diagnosis: 1-2 po q6h prn painFOR GREER KIESHA DO NOT FILL UNTIL 07/15/18 Last Documented On 9 11:32AM By Elizabeth Ricardo ; [facility], [facility] Acetaminophen 500MG Oral Tablet 07/09/2018 - 08/08/2018 Provider: Raúl Merritt MD Diagnosis: 2 three times a day FOR HOPSON RGERY DO NOT FILL UNTIL 07/15/18 Last Documented On 9 11:30AM By Elizabeth Ricardo ; [facility], [facility] Mupirocin 2% External Ointment 06/17/2018 - 06/22/2018 Provider: Raúl loja MD Diagnosis: Apply to nostrils 3 times a day 5 days prior to surgery. Last Documented On 9 2:45PM By Jazlyn Tom ; [facility], [facility] Medications Administered Includes: Administered Medications from this encounter No Administered Medications Recorded Vital Signs Includes: Vital Signs from this encounter Vital Name 11/10/2021 10:03A Blood Pressure Sitting (mmHg) 145/86 Pulse Rate-Sitting (bpm) 36 Height (in) 61 Weight (lb) 130 Body Mass Index (kg/m2) 24.6 Body Surface Area (m2) 1.6 Note: snb Last Documented: On 11/10/2021 10:04A M ; [facility], [facility] Results Includes: Results discussed during this [...] Documented On 2 1:23PM ; [facility] No recent change in diet 11/10/2021 [...] Documented On 2 9:30AM ; [facility] No recent change in diet 04/22/2018 Last Documented On 2 9:30AM ; [facility] Not exercising regularly 04/22/2018 Last Documented On 2 9:30AM ; [facility] Not using alcohol 04/22/2018 Last Documented On 2 9:30AM ; [facility] Not using drugs 04/22/2018 Last Documented On 2 9:30AM ; [facility] Procedures and Surgical History Includes: Procedures from this encounter Procedures Code Diagnosis Performing Provider Service L ocation Service Date intervention and counseling on cessation of tobacco use 4000F Last Documented On 2 9:30AM ; [facility] use of tobacco assessment performed 1000F Last Documented On 2 10:05AM ; [facility] patient screened for future fall risk: documentation of any fall with injury in past year 1100F Last Documented On 2 10:05AM ; [facility] follow-up visit in one month Last Documented On 2 10:05AM ; [facility] referral to physician Last Documented On 2 10:05AM ; [facility] Clinical summary provided to patient Last Documented On 2 9:30AM ; [facility] an X-ray was performed 92762 Last Documented On 2 10:30AM ; [facility] an MRI was performed [id number] Last Documented On 2 10:30AM ; [facility] Surgical History Last Updated History of History of Gallbladder 2021 Last Documented On 2 1:23PM ; [facility] History of total hip replacement 019 Last Documented On 2 9:30AM ; [facility] Medical History Includes: Medical History addressed during this encounter Description Last Updated History of arthritis 11/10/2021 Last Documented On 2 1:23PM ; [facility] History of diverticulitis of colon 11/10 Last Documented On 2 1:23PM ; [facility] History of History of Emphysema 11/11/19 22 Last Documented On 2 1:23PM ; [facility] History of Hypertension 11/10/2021 Last Documented On 2 1:23PM ; [facility] History of Irregular Heartbeat 2 Last Documented On 2 1:23PM ; [facility] History of Thyroid Disease 11/10/2021 Last Documented On 2 1:23PM ; [facility] No recent immunization for flu 2 Last Documented On 2 1:23PM ; [facility], [facility] Recent immunization for pneumococcal pne umonia 2020 11/10/2021 Last Documented On 2 1:23PM ; [facility], [facility] cataracs 04/22/2018 Last Documented On 2 9:30AM ; [facility], [facility] Arthritic joint problems 04/22/2018 Last Documented On 2 9:30AM ; [facility], [facility] Gallbladder disease 04/22/2018 Last Documented On 2 9:30AM ; [facility], [facility] History of depression 04/22/2018 Last Documented On 2 9:30AM ; [facility], [facility] History of osteoporosis 04/22/2018 Last Documented On 2 9:30AM ; [facility], [facility] Family History Includes: Family History addressed during this encounter Description Last Updated Family history of systemic hypertension 11/10/2021 Last Documented On 2 1:23PM ; [facility] Family history of osteoporosis 9 Last Documented On 2 9:30AM ; [facility], [facility] Review of Systems Includes: Review of [...] Active Last Documented On 2 9:30AM ; [facility], [facility] Diclofenac Potassium Allergy 04/22/2018 Active Last Documented On 2 9:30AM ; [facility], [facility] Antihistamine Decongestant Allergy 04/22/2018 Active Last Documented On 2 9:30AM ; [facility], [facility] Encounters Encounter Provider Location Date Check-In Time Check-Out Time Diagnosis Follow Up Masood Brown PA-C [facility] 2 9:28AM 10:55AM Insurance Includes: Active Insurance Policies Plan Name Member ID Group # Subscriber Relationship Effect arcelia Dates 1 - [employer] [id number] Cindy Braxton Self 01/06 - Unknown Clinical Notes Includes: Clinical Notes from this encounter No Clinical Notes Recorded
--- OUTSIDE RECORDS SUMMARY | 2025-01-02 13:20 | XMS_ITS | Encounter Summary ---
Author Organization [employer] ([place], [place], [place], [place]) Address [address] [place] [address] Care Team Providers Care Vessel Scrapper Helper Name Role Phone Unavailable Primary Care Provider Unavailmorris e Encounter Details Date Type Department Care Team (Late st Contact Info) Description 07/16/2018 Transcribed Document [facility] [place] Medicine [address] [place] [address] ProviderKristel MD [address] [place] [address] Social History Tobacco Use Types [...]
--- OUTSIDE RECORDS SUMMARY | 2025-01-02 13:20 | XMS_ITS | Encounter Summary ---
Author Organization [facility] Address [address] [place] [address] Care Team Providers Care Lead Press Operator Name Role Phone Nae Cortés APRN Primary Care Provider +1- [phone] Reason for Referral * Consultation (Routine) - Closed Specialty Diagnoses / Procedures Referred By Radha santacruz Referred To Contact Nephrology Diagnoses Elevated BUN Elevated creatine kinase Nae Cortés APRN [address] [address] Phone: tel: fax: [address] [address] Phone: tel: fax: Referral ID Status Reason Start Date Expiration Date V isits Requested Visits Authorized [id number] Closed Specialty Services Required 08/27/2024 02/26/2026 1 1 Encounter Details Date Type Department Care Team (Late st Contact Info) Description 08/27/2024 Community [facility] Community Practice [address] [place] [address] Nae Cortés APRN [address] [address] Elevated BUN (Primary Dx); Elevated [...] Description 01/16/2025 11:20 AM EST Office Visit [facility] [address] [facility] [address] [phone] Sergei Gan MD [address] [place] [phone] 04/17/2025 11:00 AM EST Appointment [facility] [address] [place] [address] Scheduled Referrals Name Type Priority Associated Diagnoses Order Schedule Ambulatory referral to Nephrology Outpatient Referral Routine Elevated BUN Elevated creatine kinase Expected: 08/27/2024 (Approximate), Expires: 02/28/2026 documented as of this encounter Visit Diagnoses Diagnosis Elevated BUN- Primary Other abnormal blood chemistry Elevated creatine kinase Other nonspecific abnormal serum enzyme levels documented in this encounter Care Teams Lead Press Operator Relationship Specialty Start Date End Date Nae Cotrés APRN [address] [place], [place] [id number] PCP - General 09/05/24 documented as of this encounter
--- OUTSIDE RECORDS SUMMARY | 2025-01-02 13:20 | XMS_ITS | Encounter Summary ---
Author Organization [employer] ([place], [place], [place], [place]) Address [address] [place] [address] Care Team Providers Care Marine Radio Installer And Servicer Name Role Phone Unavailable Primary Care Provider Unavailabl e Encounter Details Date Type Department Care Team (Late st Contact Info) Description 06/28/2018 Transcribed Document [facility] [place] Family Medicine [address] [place] [address] ProviderKristel MD [address] [place] [address] Social History Tobacco Use Types [...]
--- OUTSIDE RECORDS SUMMARY | 2025-01-02 13:20 | XMS_ITS | Clinical Summary ---
Author Organization Healthcare Address [address] [place] [address] Care Team Providers Care Parts Sales Associate Name Role Phone Nae Cortés TRAM Primary Care Provider +1- [phone] Allergies Active Allergy Reactions Criticality Noted Date [...] 10 MG 10/16/2024 Act arcelia HYDROcodone-acet aminophen ([place]) 5-325 MG tablet 10/17/2024 Active irbesartan (Avapro) [...] Type Department Care Team Description 10/21/2024 Telephone [facility] [place] [facility] [address] [facility] [place] [address] Sweta Jones 10/20/2024 11:00 AM EDT Office Visit [facility] Nephrology, Bone & Mineral Metabolism [address], [address] [place] [address] Sergei Gan MD Chronic diastolic heart failure (CMS/HCC) (Primary Dx); Hypervolemia associated with renal insufficiency; Other emphysema (CMS/HCC); Malignant neoplasm of female breast, unspecified estrogen receptor status, unspecified laterality, unspecified site of breast; Acute kidney injury (BETH) with acute tubular necrosis (ATN) (CMS/HCC); Hyponatremia 10/20/2024 Travel 10/17/2024 11:20 AM EDT Office Visit [facility] [address] 5[address] [place] [address] Bjorn Galarza MD 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 [place] [address] Sweta Jones from Last 3 [...] 11:20 AM EST Office Visit [facility] [address] [place] [address] Sergei Gan MD [address] [place] [address] 04/17/2025 11:00 AM EST Appointment [facility] [address] [place] [address] Health Maintenance Due Date Last Done Comments [facility]-Bone Density Scan 1945 [facility]-Diabetes: Hemoglobin A1C 1945 [facility]-Hepatitis C Screening 1945 [facility]-Medicare Annual Wellness (AWV) 1945 [facility]-Infant/Child/Adol SDOH Screenings 1945 Diabetes: Dental Exam 1956 [facility]- SDOH Screenings 1964 [facility]-Adult SDOH Screenings 1964 [facility]-Zoster Vaccines (1 of 2) 1965 Lung Cancer Screening Shared Decision Making 1996 [facility]-Lung Cancer Screening 1996 [id number] Vaccine (3 - Moderna risk series) 06/16/2020 [...] age to complete [place] [address] HU[employer]NA MEDICARE Advance Directives Documents on File Type Date Recorded Patient Fundraising Coordinator Expl anation Power of Assistance Representative 11/12/2024 Power of A ttorney Care Teams Parts Sales Associate Relationship Specialty Start Date End Date Nae Cortés APRN [address] [place] [phone] PCP - General 09/05/24
--- OUTSIDE RECORDS SUMMARY | 2025-01-02 13:20 | XMS_ITS | Encounter Summary ---
Author Organization [employer] ([place], [place], [place], [place]) Address [address] [place] [address] Care Team Providers Care Inspector Grain Mill Products Name Role Phone Unavailable Primary Care Provider Unavailmorris e Encounter Details Date Type Department Care Team (Late st Contact Info) Description 07/16/2018 Transcribed Document [facility] [place] [address] [place] [address] ProviderKristel MD [address] [place] [address] Social History Tobacco Use Types [...] Historical ProviderMD - 07/16/2018 2:00 AM CDT Irrigator Sprinkling System Details Entered On: 07/16/2018 2:49 EDT Performed [...]
--- OUTSIDE RECORDS SUMMARY | 2025-01-02 13:20 | XMS_ITS | Encounter Summary ---
Author Organization [employer] ([place], [place], [place], [place]) Address [address] [place] [address] Care Team Providers Care Sales Market Leader Name Role Phone Unavailable Primary Care Provider Unavailabl e Encounter Details Date Type Department Care Team (Late st Contact Info) Description 07/16/2018 Transcribed Document [facility] [place] [address] [place] [address] ProviderKristel MD [address] [place] [address] Social History Tobacco Use Types [...] On: 07/16/2018 9:10 EDT by Meche Oshea nascar pit crew person Documentation Patient Disposition, General : Discharge Discharge [...] 07/16/2018 9:10 EDT Electronically signed by [facility] Conversion Ag Service Manager Cerner at 06/29/2022 1:27 PM CDT documented in this encounter Plan of Treatment Not on file documented as of this encounter Visit Diagnoses Not on filedocumented in this encounter
--- OUTSIDE RECORDS SUMMARY | 2025-01-02 13:20 | XMS_ITS | Encounter Summary ---
Author Organization Healthcare Address [address] [place] [address] Care Team Providers Care Software Maintenance Engineer Name Role Phone Nae Cortés TRAM Primary Care Provider +1- [phone] Encounter Details Date Type Department Care Team (Late st Contact Info) Description 12/06/2023 Orders Only External Location [address] [place] [address] Provider, External Social History Tobacco [...] Description 01/16/2025 11:20 AM EST Office Visit [facility] [address] [place] [phone] Sergei Gan MD [address] [place] [phone] 04/17/2025 11:00 AM EST Appointment [facility] [address] [place] [address] documented as of this encounter [...] on filedocumented in this encounter Care Teams Software Maintenance Engineer Relationship Specialty Start Date End Date Nae Cortés APRN [facility] [place] [address] PCP - General 09/05/24 documented as of this encounter
--- OUTSIDE RECORDS SUMMARY | 2025-01-02 13:20 | XMS_ITS | Encounter Summary ---
Author Organization [employer] ([place], [place], [place], [place]) Address [address] [place] [address] Care Team Providers Care Elevator Repair Mechanic Name Role Phone Unavailable Primary Care Provider Unavailabl e Encounter Details Date Type Department Care Team (Late st Contact Info) Description 06/28/2018 Transcribed Document [facility] Family Medicine [facility] [place] [address] ProviderKristel MD [facility] [place] [address] Social History Tobacco Use Types [...] Hip Pain Primary Care Provider RANDAL ALBARADO (REF)MD-[facility] History of Present Illness This patient is [...]
--- OUTSIDE RECORDS SUMMARY | 2025-01-02 13:20 | XMS_ITS | Clinical Summary ---
Author Organization [facility] Address [address] [place] [address] Phone Care Team Providers Care Copyholder Name Role Phone RANDAL ALBARADO MD Primary Care Provider [phone] Bjorn Grande MD Unavailable [phone] Reason for Visit and Chief Complaint The Chief Complaint is: right hip pain Problems Includes: Problems addressed during this encounter and other active Problems All Visits Onset Date Resolved Date Provider Condition S tatus Joint Pain Hip Left 11/10/2021 Masood basilio PA-C Active Last Documented On 2 9:30AM ; [facility] Joint Pain Hip Right 10/22/2015 Raúl Merritt MD Active Last Documented On 6 12:14PM ; [facility] Plan of Treatment Overall the patient is pleased with her progress, encouraged further participation in outpatient physical therapy for strengthening and conditioning of the hip musculature. Patient expressed understanding, follow-up one year postop for x- ray and exam - Last Documented On 08/27/2018 11:31AM ; [facility] Instructions to patient Instructions for patient to see pcp for bp Last Documented On 9 10:38AM ; [facility], [facility] Intervention and counseling on cessation of tobacco use Last Documented On 9 10:38AM ; [facility] Education and Decision Aids were provided during visit for: Health seminar on smoking ce ssation Last Documented On 9 10:38AM ; [facility] Assessments Includes: Assessments from this encounter Findings 6 weeks status post right anterior approach AYESHA - Last Documented On 08/27/2018 11:31AM ; [facility], [facility] History of left anterior approach AYESHA - Last Documented On 08/27/2018 11:31AM ; [facility], [facility] Instructions Includes: Instructions from this encounter Instructions to patient Instructions for patient to see pcp for bp Last Documented On 9 10:38AM ; [facility], [facility] Intervention and counseling on cessation of tobacco use Last Documented On 9 10:38AM ; [facility], [facility] Education and Decision Aids were provided during visit for: Health seminar on smoking ce ssation Last Documented On 9 10:38AM ; [facility], [facility] Medical Equipment - Implanted Devices Includes: Current Devices No Medical Equipment Recorded Medications Includes: Medications discussed during this encounter and other current Medications Current Medications (continue as prescribed) Levothyroxine Sodium 150 MCG Oral Tablet 11/10/2021 Provider: Diagnosis: Last Documented On 2 10:28AM By Alem Aden ; [facility], [facility] ALPRAZolam 0.5 MG Oral Tablet 11/10/2021 Provider: Diagnosis: Last Documented On 2 10:28AM By Alem Aden ; [facility], [facility] Diclofenac Sodium 75 MG Oral Tablet Delayed Release Provider: Diagnosis: Last Documented On 2 10:29AM By Alem Aden ; [facility], [facility] Nadolol 40 MG Oral Tablet 09/27/2021 Provider: Sa yogi Cortés APRN Diagnosis: Last Documented On 2 10:29AM By Alem Aden ; [facility], [facility] Dicyclomine HCl 20 MG Oral Tablet 09/15/2021 Provide r: Nae Cortés APRN Diagnosis: Last Documented On 2 10:29AM By Alem Aden ; [facility], [facility] Citalopram Hydrobromide 20 M G Oral Tablet 08/12/2021 Provider: Nae jones APRN Diagnosis: Last Documented On 2 10:29AM By Alem Aden ; [facility] Losartan Potassium 100 MG Or al Tablet 07/14/2021 Provider: Nae jones AUTOMATION TECHNOLOGIST Diagnosis: Last Documented On 2 10:29AM By Alem Aden ; [facility] Furosemide 20 MG Oral Tablet 05/03/2021 Provider: Nae Cortés APRN Diagnosis: Last Documented On 2 10:29AM By Alem Aden ; [facility], [facility] Past Medications on file Colace 100MG Oral Capsule 07/09/2018 - 10/07/2018 Provider: Raúl loja MD Diagnosis: 1-2 tabs daily FOR SURGERY DO NOT FILL UNTIL 07/15/18 Last Documented On 9 11:30AM By Elizabeth Ricardo ; [facility], [facility] Dilaudid 2MG Oral Tablet 07/09/2018 - 07/11/2018 Provi mitali: Raúl Merritt MD Diagnosis: 1-2 po q6h prn pain (RESCUE PAIN)FOR SURGERY DO NOT FILL UNTIL 07/15/18 Last Documented On 9 11:30AM By Elizabeth Ricardo ; [facility], [facility] Neurontin 300MG Oral Capsule 07/09/2018 - 10/07/2018 Provider: Raúl loja MD Diagnosis: 1 every bedtime FOR SURGER Y DO NOT FILL UNTIL 07/15/18 Last Documented On 9 11:32AM By Elizabeth Ricardo ; [facility], [facility] traMADol HCl 50MG Oral Tablet 07/09/2018 - 07/14/2018 Provider: Raúl loja MD Diagnosis: 1-2 po q6h prn painFOR GREER KIESHA DO NOT FILL UNTIL 07/15/18 Last Documented On 9 11:33AM By Elizabeth Ricardo ; [facility], [facility] oxyCODONE HCl 5MG Oral Tablet 07/09/2018 - 07/14/2018 Provider: Raúl loja MD Diagnosis: 1-2 po q6h prn painFOR GREER KIESHA DO NOT FILL UNTIL 07/15/18 Last Documented On 9 11:32AM By Elizabeth Ricardo ; [facility], [facility] Acetaminophen 500MG Oral Tablet 07/09/2018 - 08/08/2018 Provider: Raúl Merritt MD Diagnosis: 2 three times a day FOR HOPSON RGERY DO NOT FILL UNTIL 07/15/18 Last Documented On 9 11:30AM By Elizabeth Ricardo ; [facility], [facility] Mupirocin 2% External Ointment 06/17/2018 - 06/22/2018 Provider: Raúl loja MD Diagnosis: Apply to nostrils 3 times a day 5 days prior to surgery. Last Documented On 9 2:45PM By Jazlyn Tom ; [facility], [facility] Medications Administered Includes: Administered Medications from this encounter No Administered Medications Recorded Vital Signs Includes: Vital Signs from this encounter Vital Name 08/26/2018 10:38A Blood Pressure Sitting (mmHg) 142/75 Pulse Rate-Sitting (bpm) 67 Height (in) 61 Weight (lb) 145 Body Mass Index (kg/m2) 27.4 Body Surface Area (m2) 1.6 Note: rj Last Documented: On 08/26/2018 10:39A M ; [facility], [facility] Results Includes: Results discussed during this encounter No Results Recorded For Specified Dates History of Present Illness Includes: History of Present Illness from this encounter HPI Cindy Braxton is a 73 year old female. - Medication list reviewed with patient. Social History Description Last Updated No caffeine use 11/10/2021 Last Documented On 9 10:37AM ; [facility] Tobacco use 04/22/2018 Last Documented On 9 10:37AM ; [facility] Smoking status : Current everyday smoker 04/22/2018 Last Documented On 9 10:37AM ; [facility] Current smoker 04/22/2018 Last Documented On 9 10:37AM ; [facility] No recent change in diet 04/22/2018 Last Documented On 9 10:37AM ; [facility] Not exercising regularly 04/22/2018 Last Documented On 9 10:37AM ; [facility] Not using alcohol 04/22/2018 Last Documented On 9 10:37AM ; [facility], [facility] Not using drugs 04/22/2018 Last Documented On 9 10:37AM ; [facility], [facility] Procedures and Surgical History Includes: Procedures from this encounter Procedures Code Diagnosis Performing Provider Service L ocation Service Date intervention and counseling on cessation of tobacco use 4000F Last Documented On 9 10:38AM ; [facility], [facility] Clinical summary provided to patient Last Documented On 9 10:38AM ; [facility], [facility] Surgical History Last Updated History of total hip replacement 019 Last Documented On 9 10:37AM ; [facility], [facility] Medical History Includes: Medical History addressed during this encounter Description Last Updated cataracs 04/22/2018 Last Documented On 9 10:37AM ; [facility], [facility] Arthritic joint problems 04/22/2018 Last Documented On 9 10:37AM ; [facility], [facility] Gallbladder disease 04/22/2018 Last Documented On 9 10:37AM ; [facility], [facility] History of depression 04/22/2018 Last Documented On 9 10:37AM ; [facility], [facility] History of osteoporosis 04/22/2018 Last Documented On 9 10:37AM ; [facility], [facility] Family History Includes: Family History addressed during this encounter Description Last Updated Family history of osteoporosis 9 Last Documented On 9 10:37AM ; [facility], [facility] Review of Systems Includes: Review of Systems [...] Active Last Documented On 2 9:30AM ; [facility], [facility] Diclofenac Potassium Allergy 04/22/2018 Active Last Documented On 2 9:30AM ; [facility] Antihistamine Decongestant Allergy 04/22/2018 Active Last Documented On 2 9:30AM ; [facility], [facility] Encounters Encounter Provider Location Date Check-In Time Check-Out Time Diagnosis Post Op Raúl Merritt MD [facility] 08/27/19 19 10:15AM 11:13AM Insurance Includes: Active Insurance Policies Plan Name Member ID Group # Subscriber Relationship Effect arcelia Dates 1 - [employer]ICARE [id number] Cindy Braxton Self 01/06 - Unknown Clinical Notes Includes: Clinical Notes from this encounter No Clinical Notes Recorded
--- OUTSIDE RECORDS SUMMARY | 2025-01-02 13:20 | XMS_ITS | Encounter Summary ---
Author Organization [employer] ([place], [place], [place], [place]) Address [address] [place] [address] Care Team Providers Care Digital Product Manager Name Role Phone Unavailable Primary Care Provider Unavailabl e Encounter Details Date Type Department Care Team (Late st Contact Info) Description 07/16/2018 Transcribed Document [facility] [place] [address] [place] [address] ProviderKristel MD [address] [place] [address] Social History Tobacco Use Types [...] Kristel ProviderMD - 07/16/2018 12:02 [place] [address] CINDY LABOY :1945 Visit Time:07/15/2018 Your Visit Summary Your Care Team Admitting Physician - RONAL ROBERT MD Attending Physician - DEREK DURAN MD-MENDYT Primary Care Physician - RANDAL ALBARADO (REF)MD-[facility] Referring Physician - DEREK DURAN MD-ORT Your Diagnosis S/P total hip arthroplasty Unilateral primary osteoarthritis, right hip, Unilateral primary osteoarthritis, right hip These Are Your Goals I want to mow the yard. Interventions: Work with PT Discharge Vitals Heart Rate 72 Blood Pressure 105/62 What to do next Instructions From Your Care Team [facility] FOR [facility], PT WILL NEED TO INFORM HOME HEALTH DIRECTLY OF WHEN SHE WILL CHANGE 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 TO HER OWN HOME [phone] PT HAS ALL NEEDED DME Follow-Up Appointments Follow Up with JAIDEN LEBRON PA-C When 08/26/2018 10:00 AM EDT Comments Appointment has been made Where: [address] [facility] [address] [place] [address]- Follow Up with Follow up with primary [...] Barley. Bulgur wheat. Millet. Bran muffins. Popcorn. Freedom wafer crackers. Vegetables Sweet potatoes. Spinach. Kale. Artichokes. Cabbage. Broccoli. Green peas. Carrots. Squash. Fruits Berries. Pears. Apples. Oranges. Avocados. Prunes and raisins. Dried figs. Meats and Other Protein Sources [place], kidney, [place], and soy beans. Split peas. [...] gabriel has 11 g of protein. ??? Benld seeds ??? 1 oz has 5.5 g [...] floor. ??? Place frequently used items in rizu-ll-bkikg places ??? Keep electrical cables out of [...] ??? Using the bathroom. ??? Using household international sales representative or toxic chemicals. ??? Touching or taking [...] Assistance with quitting is available by contacting 9-537-SBIF-NOW. This is a free resource providing counseling, [...] sure to sign up for the [facility] patient portal, which gives you 02/10 access to your medical information ??? including these discharge instructions ??? using your computer, smartphone, or tablet. Just go to [employer] to get started. Questions? Call . Test [...] was given the opportunity to ask questions. Patient/Collector Name: Patient/Collector Signature: Relationship to Patient: Clinician/Hospital Collector Signature: Date: documented in this encounter Plan of Treatment Not on file documented as of this encounter Visit Diagnoses Not on filedocumented in this encounter
--- OUTSIDE RECORDS SUMMARY | 2025-01-02 13:20 | XMS_ITS | Encounter Summary ---
Author Organization [employer] ([place], [place], [place], [place]) Address [address] [place] [address] Care Team Providers Care Hose Inspector Name Role Phone Unavailable Primary Care Provider Unavailabl e Encounter Details Date Type Department Care Team (Late st Contact Info) Description 07/16/2018 Transcribed Document [facility] [place] [address] [place] [address] ProviderKristel MD [address] [place] [address] Social History Tobacco Use Types [...] Kristel ProviderMD - 07/16/2018 12:09 [place] [address] CINDY LABOY :1945 Visit Time:07/15/2018 Your Visit Summary Your Care Team Admitting Physician - RONAL ROBERT MD Attending Physician - DEREK DURAN MD-MENDYT Primary Care Physician - RANDAL ALBARADO (REF[facility] Referring Physician - DEREK DURAN MD-ORT Your Diagnosis S/P total hip arthroplasty Unilateral primary osteoarthritis, right hip, Unilateral primary osteoarthritis, right hip These Are Your Goals I want to mow the yard. Interventions: Work with PT Discharge Vitals Heart Rate 72 Blood Pressure 105/62 What to do next Instructions From Your Care Team [facility], PT WILL NEED TO INFORM HOME HEALTH DIRECTLY OF WHEN SHE WILL CHANGE 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 TO HER OWN HOME [phone] PT HAS ALL NEEDED DME Follow-Up Appointments Follow Up with JAIDEN LEBRON PA-C When 08/26/2018 10:00 AM EDT Comments Appointment has been made Where: [address] [facility] [address] [place] [address]- Follow Up with Follow up with primary [...] Barley. Bulgur wheat. Millet. Bran muffins. Popcorn. [place]as wafer crackers. Vegetables Sweet potatoes. Spinach. Kale. Artichokes. Cabbage. Broccoli. Green peas. Carrots. Squash. Fruits Berries. Pears. Apples. Oranges. Avocados. Prunes and raisins. Dried figs. Meats and Other Protein Sources [place], kidney, [place], and soy beans. Split peas. [...] gabriel has 11 g of protein. ??? [place] seeds ??? 1 oz has 5.5 g [...] floor. ??? Place frequently used items in tzbv-tb-pudzn places ??? Keep electrical cables out of [...] ??? Using the bathroom. ??? Using household shingle weaver or toxic chemicals. ??? Touching or taking [...] Assistance with quitting is available by contacting 3-554-CUAK-NOW. This is a free resource providing counseling, [...] computer, smartphone, or tablet. Just go to [employer] to get started. Questions? Call . Test [...] was given the opportunity to ask questions. Patient/Multifocal Button Inspector Name: Patient/Multifocal Button Inspector Signature: Relationship to Patient: Clinician/Hospital Multifocal Button Inspector Signature: Date: documented in this encounter Plan of Treatment Not on file documented as of this encounter Visit Diagnoses Not on filedocumented in this encounter
--- OUTSIDE RECORDS SUMMARY | 2025-01-02 13:20 | XMS_ITS | Encounter Summary ---
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 Height and Weight, Clinical Dosing Height Source : Stated Height Entry Format : [place] Height, Feet : 5 ft(Converted to: 152 cm, 60 Inch) Height, Inches : 1 Inch(Converted to: 0 ft 1 Inch, 2.54 cm) Clinical Height : 154.94 cm Weight Source : Standing scale Weight Entry Format : [place] Clinical Dosing Weight : 63.18 kg Weight, Pounds : 139 lb Body Surface Area (BSA) : 1.62 m2 Body Mass Index : 26.3 kg/m2 (HI) [place] Body Weight : 47 kg Earlene Sheriff Patient Fur Blowing Machine Operator - 07/15/2018 6:15 EDT Electronically signed by Rosario [facility] Conversion Fisheries Biologist Cerner at 06/29/2022 1:18 PM CDT documented in this encounter Plan of Treatment Not on file documented as of this encounter Visit Diagnoses Not on filedocumented in this encounter
--- OUTSIDE RECORDS SUMMARY | 2025-01-02 13:20 | XMS_ITS | Encounter Summary ---
Author Organization Healthcare Address [address] [place] [address] Care Team Providers Care Furniture Packer Name Role Phone Nae Cortés TRAM Primary Care Provider [phone] Encounter Details Date Type Department Care Team (Late st Contact Info) Description 12/06/2023 Orders Only External Location [address] [place] [address] Provider, External Social History Tobacco [...] Description 01/16/2025 11:20 AM EST Office Visit [facility] [address] [place] [phone] Sergei Gan MD [address] [place] [phone] 04/17/2025 11:00 AM EST Appointment [facility] [address] [place] [address] documented as of this encounter [...] on filedocumented in this encounter Care Teams Furniture Packer Relationship Specialty Start Date End Date Nae Cortés APRN [address] [place] [address] PCP - General 09/05/24 documented as of this encounter
--- OUTSIDE RECORDS SUMMARY | 2025-01-02 13:21 | XMS_ITS | Clinical Summary ---
Author Organization [facility] Address [address] [place] [address] Phone Care Team Providers Care Director Of Emergency Nursing Name Role Phone RANDAL ALBARADO MD Primary Care Provider [phone] Bjorn Grande MD Unavailable [phone] Reason for Visit and Chief Complaint The Chief Complaint is: right hip pain Problems Includes: Problems addressed during this encounter and other active Problems All Visits Onset Date Resolved Date Provider Condition S tatus Joint Pain Hip Left 11/10/2021 Masood basilio PA-C Active Last Documented On 2 9:30AM ; [facility] Joint Pain Hip Right 10/22/2015 Raúl Merritt MD Active Last Documented On 6 12:14PM ; [facility] Plan of Treatment Patient comes in [...] - Last Documented On 07/19/2018 9:14AM ; [facility] Instructions to patient Instructions for patient [...] 2 10:28AM By Alem Aden ; [facility] ALPRAZolam 0.5 MG Oral Tablet 11/10/2021 Provider: Diagnosis: Last Documented On 2 10:28AM By Alem Aden ; [facility] Diclofenac Sodium 75 MG Oral Tablet Delayed Release Provider: Diagnosis: Last Documented On 2 10:29AM By Alem Aden ; [facility] Nadolol 40 MG Oral Tablet 09/27/2021 Provider: Sa yogi Cortés APRN Diagnosis: Last Documented On 2 10:29AM By Alem Aden ; [facility] Dicyclomine HCl 20 MG Oral Tablet 09/15/2021 Provide r: Nae Cortés APRN Diagnosis: Last Documented On 2 10:29AM By Alem Aden ; [facility] Citalopram Hydrobromide 20 M G Oral Tablet 08/12/2021 Provider: Nae jones APRN Diagnosis: Last Documented On 2 10:29AM By Alem Aden ; [facility] Losartan Potassium 100 MG Or al Tablet 07/14/2021 Provider: Nae jones APRN Diagnosis: Last Documented On 2 10:29AM By Alem Aden ; [facility] Furosemide 20 MG Oral Tablet 05/03/2021 Provider: Nae Cortés APRN Diagnosis: Last Documented On 2 10:29AM By Alem Aden ; [facility] Past Medications on file Colace 100MG Oral Capsule 07/09/2018 - 10/07/2018 Provider: Raúl loja MD Diagnosis: 1-2 tabs daily FOR SURGERY DO NOT FILL UNTIL 07/15/18 Last Documented On 9 11:30AM By Elizabeth Ricardo ; [facility], [facility] Dilaudid 2MG Oral Tablet 07/09/2018 - 07/11/2018 Provi mitali: Raúl Merritt MD Diagnosis: 1-2 po q6h prn pain (RESCUE PAIN)FOR SURGERY DO NOT FILL UNTIL 07/15/18 Last Documented On 9 11:30AM By Elizabeth Ricardo ; [facility] Neurontin 300MG Oral Capsule 07/09/2018 - 10/07/2018 Provider: Raúl loja MD Diagnosis: 1 every bedtime FOR SURGER Y DO NOT FILL UNTIL 07/15/18 Last Documented On 9 11:32AM By Elizabeth Ricardo ; [facility] traMADol HCl 50MG Oral Tablet 07/09/2018 - 07/14/2018 Provider: Raúl loja MD Diagnosis: 1-2 po q6h prn painFOR GREER KIESHA DO NOT FILL UNTIL 07/15/18 Last Documented On 9 11:33AM By Elizabeth Ricardo ; [facility] oxyCODONE HCl 5MG Oral Tablet 07/09/2018 - 07/14/2018 Provider: Raúl loja MD Diagnosis: 1-2 po q6h prn painFOR GREER KIESHA DO NOT FILL UNTIL 07/15/18 Last Documented On 9 11:32AM By Elizabeth Ricardo ; [facility] Acetaminophen 500MG Oral Tablet 07/09/2018 - 08/08/2018 [...] Documented On 9 8:36AM ; [facility] No recent change in diet 04/22/2018 Last Documented On 9 8:36AM ; [facility] Not exercising regularly 04/22/2018 Last Documented On 9 8:36AM ; [facility] Not using alcohol 04/22/2018 Last Documented On 9 8:36AM ; [facility] Not using drugs 04/22/2018 Last Documented On 9 8:36AM ; [facility], [facility] Procedures and Surgical History Includes: Procedures from this encounter Procedures Code Diagnosis Performing Provider Service L ocation Service Date intervention and counseling on cessation of tobacco use 4000F Last Documented On 9 8:36AM ; [facility] Clinical summary provided to patient Last Documented On 9 8:36AM ; [facility] history of an X-ray was performed 94137 Last Documented On 9 8:36AM ; [facility] history of a [facility] scan was performed 90135 Last Documented On 9 8:36AM ; [facility] Surgical History Last Updated History of total hip replacement 019 Last Documented On 9 8:36AM ; [facility] Medical History Includes: Medical History addressed during this encounter Description Last Updated cataracs 04/22/2018 Last Documented On 9 8:36AM ; [facility] Arthritic joint problems 04/22/2018 Last Documented On 9 8:36AM ; [facility] Gallbladder disease 04/22/2018 Last Documented On 9 8:36AM ; [facility] History of depression 04/22/2018 Last Documented On 9 8:36AM ; [facility] History of osteoporosis 04/22/2018 Last Documented On 9 8:36AM ; [facility], [facility] Family History Includes: Family History addressed during this encounter Description Last Updated Family history of osteoporosis 9 Last Documented On 9 8:36AM ; [facility] Review of Systems Includes: Review of Systems [...] Active Last Documented On 2 9:30AM ; [facility] Diclofenac Potassium Allergy 04/22/2018 Active Last Documented On 2 9:30AM ; [facility] Antihistamine Decongestant Allergy 04/22/2018 Active Last Documented On 2 9:30AM ; [facility] Encounters Encounter Provider Location Date Check-In Time Check-Out Time Diagnosis Post Op Raúl Merritt MD [facility] 07/20/19 19 8:30AM 9:14AM Insurance Includes: Active Insurance Policies Plan Name Member ID Group # Subscriber Relationship Effect arcelia Dates 1 - [employer] [id number] Cindy Braxton Self 01/06 - Unknown Clinical Notes Includes: Clinical Notes from this encounter No Clinical Notes Recorded
--- OUTSIDE RECORDS SUMMARY | 2025-01-02 13:21 | XMS_ITS | Encounter Summary ---
Author Organization [employer] ([place], [place], [place], [place]) Address [address] [place] [address] Care Team Providers Care Nutrition Aides Teacher Name Role Phone Unavailable Primary Care Provider Unavailabl e Encounter Details Date Type Department Care Team (Late st Contact Info) Description 07/16/2018 Transcribed Document [facility] [place] [address] [place] [address] ProviderKristel MD [address] [place] [address] Social History Tobacco Use Types [...]
--- OUTSIDE RECORDS SUMMARY | 2025-01-02 13:21 | XMS_ITS | Encounter Summary ---
Author Organization [employer] ([place], [place], [place], [place]) Address [address] [place] [address] Care Team Providers Care Heel Dipper Name Role Phone Unavailable Primary Care Provider Unavailabl e Encounter Details Date Type Department Care Team (Late st Contact Info) Description 07/16/2018 Transcribed Document [facility] [place] [address] [place] [address] ProviderKristel MD [address] [place] [address] Social History Tobacco [...] Barley. Bulgur wheat. Millet. Bran muffins. Popcorn. [place] wafer crackers. Vegetables Sweet potatoes. Spinach. Kale. Artichokes. Cabbage. Broccoli. Green peas. Carrots. Squash. Fruits Berries. Pears. Apples. Oranges. Avocados. Prunes and raisins. Dried figs. Meats and Other Protein Sources [place], kidney, [place], and soy beans. Split peas. [...] gabriel has 11 g of protein. ?? [place] seeds ??? 1 oz has 5.5 g [...] floor. ?? Place frequently used items in eqeg-ww-crnup places ?? Keep electrical cables out of [...] ?? Using the bathroom. ?? Using household dba manager or toxic chemicals. ?? Touching or taking [...]
--- OUTSIDE RECORDS SUMMARY | 2025-01-02 13:21 | XMS_ITS | Encounter Summary ---
Author Organization [employer] ([place], [place], [place], [place]) Address [address] [place] [address] Care Team Providers Care Senior Application Software Engineer Name Role Phone Unavailable Primary Care Provider Grady peres Encounter Details Date Type Department Care Team (Late st Contact Info) Description 07/16/2018 Transcribed Document [facility] [place] [address] [place] [address] ProviderKristel MD [address] [place] [address] Social History Tobacco Use Types [...]
--- OUTSIDE RECORDS SUMMARY | 2025-01-02 13:21 | XMS_ITS | Encounter Summary ---
Author Organization [employer] ([place], [place], [place], [place]) Address [address] [place] [address] Care Team Providers Care China Painter Name Role Phone Unavailable Primary Care Provider Grady peres Encounter Details Date Type Department Care Team (Late st Contact Info) Description 07/16/2018 Transcribed Document [facility] [place] [address] [place] [address] ProviderKristel MD [address] [place], [...]
--- OUTSIDE RECORDS SUMMARY | 2025-01-02 13:21 | XMS_ITS | Encounter Summary ---
Author Organization [employer] ([place], [place], [place], [place]) Address [address] [place] [id number] Care Team Providers Care Station Manager Name Role Phone Unavailable Primary Care Provider Unavailabl e Encounter Details Date Type Department Care Team (Late st Contact Info) Description 07/16/2018 Transcribed Document [facility] [place] [address] [place] [address] ProviderKristel MD [address] [place] [address] Social History Tobacco Use Types [...] EDT Pain Scale Intensity : 3 Lani Yosusef Rn - 07/16/2018 9:54 EDT Image 4 - Images currently included in the form version of this document have not been included in the text rendition version of the form. documented in this encounter Plan of Treatment Not on file documented as of this encounter Visit Diagnoses Not on filedocumented in this encounter
--- OUTSIDE RECORDS SUMMARY | 2025-01-02 13:21 | XMS_ITS ---
Author Organization [facility] Address [address] [place] [address] Phone Care Team Providers Care Boilermaker Industrial Boilers Name Role Phone RANDAL ALBARADO MD Primary Care Provider [phone] Bjorn Grande MD Unavailable [phone] Reason for Referral Date Encounter Description Provider Reason for Referral 11/10/21 Follow Up Masood Brown PA-C Refer ral To Physician Problems Includes: Active, inactive, and resolved Problems All Visits Onset Date Resolved Date Provider Condition S tatus Joint Pain Hip Left 11/10/2021 Masood basilio PA-C Active Last Documented On 2 9:30AM ; [facility] Joint Pain Hip Right 10/22/2015 Raúl Merritt MD Active Last Documented On 6 12:14PM ; [facility] Plan of Treatment Instructions to patient Instructions for patient to see pcp for bp Last Documented On 2 9:30AM ; [facility] Intervention and counseling on cessation of tobacco use Last Documented On 2 9:30AM ; [facility] Instructions for patient to see pcp for bp Last Documented On 9 10:38AM ; [facility] Intervention and counseling on cessation of tobacco use Last Documented On 9 10:38AM ; [facility] Instructions for patient to see pcp for bp Last Documented On 9 8:36AM ; [facility] Intervention and counseling on cessation of tobacco use Last Documented On 9 8:36AM ; [facility] Instructions for patient to see pcp for bp Last Documented On 9 11:33AM ; [facility] Intervention and counseling on cessation of tobacco use Last Documented On 9 11:32AM ; [facility] Education and Decision Aids were provided during visit for: Health seminar on smoking ce ssation Last Documented On 2 9:30AM ; [facility] Health seminar on smoking ce ssation Last Documented On 9 10:38AM ; [facility] Health seminar on smoking ce ssation Last Documented On 9 8:36AM ; [facility] Health seminar on smoking ce ssation Last Documented On 9 11:32AM ; [facility] Assessments Includes: Assessments for all patient encounters No Assessments Recorded Instructions Includes: Instructions for all patient encounters Instructions to patient Instructions for patient to see pcp for bp Last Documented On 2 9:30AM ; [facility] Intervention and counseling on cessation of tobacco use Last Documented On 2 9:30AM ; [facility] Instructions for patient to see pcp for bp Last Documented On 9 10:38AM ; [facility] Intervention and counseling on cessation of tobacco use Last Documented On 9 10:38AM ; [facility] Instructions for patient to see pcp for bp Last Documented On 9 8:36AM ; [facility] Intervention and counseling on cessation of tobacco use Last Documented On 9 8:36AM ; [facility] Instructions for patient to see pcp for bp Last Documented On 9 11:33AM ; [facility] Intervention and counseling on cessation of tobacco use Last Documented On 9 11:32AM ; [facility] Education and Decision Aids were provided during visit for: Health seminar on smoking ce ssation Last Documented On 2 9:30AM ; [facility] Health seminar on smoking ce ssation Last Documented On 9 10:38AM ; [facility] Health seminar on smoking ce ssation Last Documented On 9 8:36AM ; [facility] Health seminar on smoking ce ssation Last Documented On 9 11:32AM ; [facility] Equipment - Implanted Devices Includes: Current and historical Devices No Medical Equipment Recorded Medications Includes: Current and historical Medications Current Medications (continue as prescribed) Levothyroxine Sodium 150 MCG Oral Tablet 11/10/2021 Provider: Diagnosis: Last Documented On 2 10:28AM By Alem Aden ; [facility] ALPRAZolam 0.5 MG Oral Tablet 11/10/2021 Provider: Diagnosis: Last Documented On 2 10:28AM By Alem Aden ; [facility] Diclofenac Sodium 75 MG Oral Tablet Delayed Release Provider: Diagnosis: Last Documented On 2 10:29AM By Alem Aden ; [facility] Nadolol 40 MG Oral Tablet 09/27/2021 Provider: Sa yogi Cortés APRN Diagnosis: Last Documented On 2 10:29AM By Alem Aden ; [facility] Dicyclomine HCl 20 MG Oral Tablet 09/15/2021 Provide r: Nae Cortés APRN Diagnosis: Last Documented On 2 10:29AM By Alem Aden ; [facility] Citalopram Hydrobromide 20 M G Oral Tablet 08/12/2021 Provider: Nae jones APRN Diagnosis: Last Documented On 2 10:29AM By Alem Aden ; [facility] Losartan Potassium 100 MG Or al Tablet 07/14/2021 Provider: Nae jones APRN Diagnosis: Last Documented On 2 10:29AM By Alem Aden ; [facility] Furosemide 20 MG Oral Tablet 05/03/2021 Provider: Nae Cortés APRN Diagnosis: Last Documented On 2 10:29AM By Alem Aden ; [facility] Past Medications on file Colace 100MG Oral Capsule 07/09/2018 - 10/07/2018 Provider: Raúl loja MD Diagnosis: 1-2 tabs daily FOR SURGERY DO NOT FILL UNTIL 07/15/18 Last Documented On 9 11:30AM By Elizabeth Ricardo ; [facility] Dilaudid 2MG Oral Tablet 07/09/2018 - 07/11/2018 Provi mitali: Raúl Merritt MD Diagnosis: 1-2 po q6h prn pain (RESCUE PAIN)FOR SURGERY DO NOT FILL UNTIL 07/15/18 Last Documented On 9 11:30AM By Elizabeth Ricardo ; [facility] Neurontin 300MG Oral Capsule 07/09/2018 - 10/07/2018 Provider: Raúl loja MD Diagnosis: 1 every bedtime FOR SURGER Y DO NOT FILL UNTIL 07/15/18 Last Documented On 9 11:32AM By Elizabeth Ricardo ; [facility] traMADol HCl 50MG Oral Tablet 07/09/2018 - 07/14/2018 Provider: Raúl loja MD Diagnosis: 1-2 po q6h prn painFOR GREER KIESHA DO NOT FILL UNTIL 07/15/18 Last Documented On 9 11:33AM By Elizabeth Ricardo ; [facility] oxyCODONE HCl 5MG Oral Tablet 07/09/2018 - 07/14/2018 Provider: Raúl loja MD Diagnosis: 1-2 po q6h prn painFOR GREER KIESHA DO NOT FILL UNTIL 07/15/18 Last Documented On 9 11:32AM By Elizabeth Ricardo ; [facility] Neurontin 300MG Oral Capsule 07/09/2018 - 07/09/2018 Provider: Raúl loja MD Diagnosis: 1 every bedtime FOR SURGER Y DO NOT FILL UNTIL 07/15/18 Last Documented On 9 11:31AM By Elizabeth Ricardo ; [facility] Acetaminophen 500MG Oral Tablet 07/09/2018 - 08/08/2018 Provider: Raúl Merritt MD Diagnosis: 2 three times a day FOR HOPSON RGERY DO NOT FILL UNTIL 07/15/18 Last Documented On 9 11:30AM By Elizabeth Ricardo ; [facility] Mupirocin 2% External Ointment 06/17/2018 - 06/22/2018 Provider: Raúl loja MD Diagnosis: Apply to nostrils 3 times a day 5 days prior to surgery. Last Documented On 9 2:45PM By Jazlyn Tom ; [facility] Metoprolol Tartrate 50MG Oral Tablet 04/22/2018 - 03/2021 Provider: Diagnosis: Last Documented On 2 10:28AM By Alem Aden ; [facility] Levothyroxine Sodium 150MCG Oral Tablet 04/22/2018 - 0 11/10/2021 Provider: Diagnosis: Last Documented On 2 10:28AM By Alem Aden ; [facility], [facility] Triamterene-HCTZ 37.5-25MG Oral Capsule 04/22/2018 - 0 11/10/2021 Provider: Diagnosis: Last Documented On 2 10:28AM By Alem Aden ; [facility] ALPRAZolam 0.5MG Oral Tablet 04/22/2018 - 11/10/2021 Regina barrettder: Diagnosis: Last Documented On 2 10:28AM By Alem Aden ; [facility] Medications Administered Includes: Administered Medications in patient's chart No Administered Medications Recorded Results Includes: Results from 01/03/2024 through 01/02/2025 No Results Recorded For Specified Dates History of Present Illness History of Present Illness not supported for this document type No History of Present Illness Recorded Social History Description Last Updated Caffeine use 11/10/2021 Last Documented On 2 1:23PM ; [facility] No recent change in diet 11/10/2021 Last Documented On 2 1:23PM ; [facility] Yes, current smoker. 11/10/2021 Last Documented On 2 1:23PM ; [facility] Tobacco use 04/22/2018 Last Documented On 9 4:38PM ; [facility], [facility] Smoking status : Current everyday smoker 04/22/2018 Last Documented On 9 4:38PM ; [facility] Current smoker 04/22/2018 Last Documented On 9 4:38PM ; [facility], [facility] No recent change in diet 04/22/2018 Last Documented On 9 4:38PM ; [facility], [facility] Not exercising regularly 04/22/2018 Last Documented On 9 4:38PM ; [facility], [facility] Not using alcohol 04/22/2018 Last Documented On 9 4:38PM ; [facility], [facility] Not using drugs 04/22/2018 Last Documented On 9 4:38PM ; [facility] Procedures and Surgical History Surgical History Last Updated History of History of Gallbladder 2021 Last Documented On 2 1:23PM ; [facility], [facility] History of total hip replacement 019 Last Documented On 9 4:38PM ; [facility], [facility] Medical History Includes: Medical History in patient's chart Description Last Updated History of arthritis 11/10/2021 Last Documented On 2 1:23PM ; [facility] History of diverticulitis of colon 11/10 Last Documented On 2 1:23PM ; [facility], [facility] History of History of Emphysema 11/11/19 22 Last Documented On 2 1:23PM ; [facility], [facility] History of Hypertension 11/10/2021 Last Documented On 2 1:23PM ; [facility] History of Irregular Heartbeat 2 Last Documented On 2 1:23PM ; [facility], [facility] History of Thyroid Disease 11/10/2021 Last Documented On 2 1:23PM ; [facility] No recent immunization for flu 2 Last Documented On 2 1:23PM ; [facility] Recent immunization for pneumococcal pne umonia 2020 11/10/2021 Last Documented On 2 1:23PM ; [facility], [facility] cataracs 04/22/2018 Last Documented On 9 4:38PM ; [facility], [facility] Arthritic joint problems 04/22/2018 Last Documented On 9 4:38PM ; [facility], [facility] Gallbladder disease 04/22/2018 Last Documented On 9 4:38PM ; [facility] History of depression 04/22/2018 Last Documented On 9 4:38PM ; [facility] History of osteoporosis 04/22/2018 Last Documented On 9 4:38PM ; [facility] Family History Includes: Family History in patient's chart Description Last Updated Family history of systemic hypertension 11/10/2021 Last Documented On 2 1:23PM ; [facility], [facility] Family history of osteoporosis 9 Last Documented On 9 4:38PM ; [facility] Review of Systems Review of Systems not supported for this document type No Review of Systems Recorded Mental Status Description Anxiety Functional Status No Functional Status Recorded Physical Exam Physical Exam not supported for this document type No Physical Exam Recorded Allergies Includes: Active, inactive, and resolved Allergies Substance Type Reaction Onset Date Resolved Date Statu s Ketoprofen Allergy 04/22/2018 Active Last Documented On 2 9:30AM ; [facility] Diclofenac Potassium Allergy 04/22/2018 Active Last Documented On 2 9:30AM ; [facility] Antihistamine Decongestant Allergy 04/22/2018 Active Last Documented On 2 9:30AM ; [facility] Insurance Includes: Active Insurance Policies Plan Name Member ID Group # Subscriber Relationship Effect arcelia Dates 1 - [employer] [id number] Cindy Braxton Self 01/06 - Unknown Clinical Notes Includes: Signed Clinical Notes starting from 02/23/2022 No Clinical Notes Recorded
--- OUTSIDE RECORDS SUMMARY | 2025-01-02 13:21 | XMS_ITS | Encounter Summary ---
Author Organization [employer] ([place], [place], [place], [place]) Address [address] [place] [address] Care Team Providers Care Plastering Supervisor Name Role Phone Unavailable Primary Care Provider Unavailabl e Encounter Details Date Type Department Care Team (Late st Contact Info) Description 07/16/2018 Transcribed Document [facility] Family Medicine [address] [place] [address] ProviderKristel MD [address] [place] [address] Social History Tobacco Use Types [...] 07/16/2018 9:53 EDT by NAYA MINOR, Care Management-Shoe Lacer Initial Assessment I Previously Documented Living Environment : No qualifying data available. Living Situation : Home Patient Lives With : Alone Emergency Contact #1 : Sera Emergency Contact #1 Emergency Contact #1 Relationship : daughter Emergency Contact #2 : Nae Emergency Contact #2 Emergency Contact #2 Relationship : daughter NAYA MINOR, Care Management-Shoe Lacer - 07/16/2018 9:53 EDT Initial Assessment II Sensory and Motor Deficits : Other: AYESHA Current Home Treatments and Equipment : Bedside commode, Shower chair, Walker NAYA MINOR, Care Management-Shoe Lacer - 07/16/2018 9:53 EDT Discharge Needs I Anticipated Discharge Date : 07/16/2018 EDT Anticipated Discharge To, CM : Home with home health Current Home Treatment/Equipment : Current Home Treatment/Equipment No qualifying data available. NAYA MINOR, Care Management-Shoe Lacer - 07/16/2018 9:53 EDT Discharge Needs II Professional Skilled Services : Professional Skilled Services No qualifying data available. Services and Community Resources : Home Health Needs Assistance with Transportation : No Discharge Options Discussed with Patient : [facility] [place], Home Health NAYA MINOR Care Management-Shoe Lacer - 07/16/2018 9:53 EDT documented in this encounter Plan of Treatment Not on file documented as of this encounter Visit Diagnoses Not on filedocumented in this encounter
--- OUTSIDE RECORDS SUMMARY | 2025-01-02 13:21 | XMS_ITS | Encounter Summary ---
Author Organization [employer] ([place], [place], [place], [place]) Address [address] [place] [address] Care Team Providers Care Records Coordinator Name Role Phone Unavailable Primary Care Provider Unavailabl e Encounter Details Date Type Department Care Team (Late st Contact Info) Description 07/16/2018 Transcribed Document [facility] Family Medicine [address] [place] [address] ProviderKristel MD [address] [place] [address] Social History Tobacco Use Types [...] Kristel ProviderMD - 07/16/2018 12:10 [place] [address] CINDY LABOY :1945 Visit Time:07/15/2018 Your Visit Summary Your Care Team Admitting Physician - RONAL ROBERT MD Attending Physician - DEREK DURAN MD-MENDYT Primary Care Physician - RANDAL ALBARADO (REF)MD-[facility] Referring Physician - DEREK DURAN MD-ORT Your Diagnosis S/P total hip arthroplasty Unilateral primary osteoarthritis, right hip, Unilateral primary osteoarthritis, right hip These Are Your Goals I want to mow the yard. Interventions: Work with PT Discharge Vitals Heart Rate 72 Blood Pressure 105/62 What to do next Instructions From Your Care Team [facility], PT WILL NEED TO INFORM HOME HEALTH DIRECTLY OF WHEN SHE WILL CHANGE 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 TO HER OWN HOME [phone] PT HAS ALL NEEDED DME Follow-Up Appointments Follow Up with JAIDEN LEBRON PA-C When 08/26/2018 10:00 AM EDT Comments Appointment has been made Where: [address] [place] [address]- Follow Up with Follow up with primary [...] Barley. Bulgur wheat. Millet. Bran muffins. Popcorn. [place] wafer crackers. Vegetables Sweet potatoes. Spinach. Kale. Artichokes. Cabbage. Broccoli. Green peas. Carrots. Squash. Fruits Berries. Pears. Apples. Oranges. Avocados. Prunes and raisins. Dried figs. Meats and Other Protein Sources [place], kidney, christ[place], and soy beans. Split peas. [...] gabriel has 11 g of protein. ??? [place] seeds ??? 1 oz has 5.5 g [...] floor. ??? Place frequently used items in [id number] places ??? Keep electrical cables out of [...] ??? Using the bathroom. ??? Using household blood bank technologist or toxic chemicals. ??? Touching or taking [...] Assistance with quitting is available by contacting 1-045-ICDP-NOW. This is a free resource providing counseling, [...] computer, smartphone, or tablet. Just go to [employer] to get started. Questions? Call . Test [...] was given the opportunity to ask questions. Patient/Nutter Up Name: Patient/Nutter Up Signature: Relationship to Patient: Clinician/Hospital Nutter Up Signature: Date: documented in this encounter Plan of Treatment Not on file documented as of this encounter Visit Diagnoses Not on filedocumented in this encounter
--- NOTE | 2025-01-02 15:48 | EXP.ACUTE.PN ---
Subjective *Date: 01/02/25 *Time: 22:08 Interval history: Feeling little better this morning. Weaned oxygen on morning rounds, able to drop to 1 L on rounds. White count improved to 10. Sodium improved to 129. Patient's weakness improving. Denies chest pain, nausea, vomiting. Family at bedside. Working with therapy. Medical Exam Vital signs and Labs for Last 24 Hours: Vital Signs Temp Pulse Pulse Resp BP BP Pulse Ox 01/02/25 14:53 01/02/25 13:00 01/02/25 10:52 01/02/25 08:10 01/02/25 08:00 01/02/25 08:00 98.5 F 86 16 107/69 L 95 01/02/25 06:56 01/02/25 06:23 98.9 F 01/02/25 05:00 01/02/25 04:00 100.4 F H 81 16 109/56 L 98 01/02/25 03:00 01/02/25 01:00 01/02/25 00:00 98.4 F 72 18 101/52 L 98 01/01/25 23:00 01/01/25 22:00 98.4 F 79 18 98/59 L 94 L 01/01/25 21:50 97.8 F 73 27 H 105/61 L 01/01/25 21:45 73 27 H 97 01/01/25 21:38 01/01/25 21:31 105/61 L 01/01/25 21:31 11 L 01/01/25 21:30 75 13 01/01/25 21:15 19 01/01/25 21:04 18 123/77 96 01/01/25 20:48 77 99/61 L 96 01/01/25 20:30 99/61 L 01/01/25 20:30 80 24 89 L 01/01/25 20:15 70 23 01/01/25 20:14 18 01/01/25 19:45 25 H 01/01/25 19:30 22 113/71 95 01/01/25 19:00 25 H 125/72 96 01/01/25 18:44 97.8 F 73 16 107/52 L 96 O2 Del Method O2 Flow Rate 01/02/25 14:53 Nasal Cannula 1 01/02/25 13:00 Nasal Cannula 1 01/02/25 10:52 Nasal Cannula 1 01/02/25 08:10 Nasal Cannula 4 01/02/25 08:00 Nasal Cannula 4 01/02/25 08:00 Nasal Cannula 4 01/02/25 06:56 Nasal Cannula 4 01/02/25 06:23 01/02/25 05:00 Nasal Cannula 4 01/02/25 04:00 Nasal Cannula 2 01/02/25 03:00 Nasal Cannula 4 01/02/25 01:00 Nasal Cannula 2 01/02/25 00:00 Nasal Cannula 2 01/01/25 23:00 Nasal Cannula 2 01/01/25 22:00 Nasal Cannula 3 01/01/25 21:50 Nasal Cannula 2 01/01/25 21:45 01/01/25 21:38 Nasal Cannula 2 01/01/25 21:31 01/01/25 21:31 01/01/25 21:30 01/01/25 21:15 01/01/25 21:04 01/01/25 20:48 Nasal Cannula 2 01/01/25 20:30 01/01/25 20:30 01/01/25 20:15 01/01/25 20:14 01/01/25 19:45 01/01/25 19:30 01/01/25 19:00 01/01/25 18:44 Room Air Intake and Output 01/01/25 01/02/25 01/02/25 23:59 07:59 15:59 Intake Total 1300 / 1480 180 / 1730 1550 / 1730 Output Total 875 / 1025 150 / 1025 Balance 1300 / 780 -695 / 705 1400 / 705 Intake: Intake, Oral Amount 180 / 730 550 / 730 Intake, Total IV Amount 1300 / 1300 1000 / 1000 0.9 % Sodium Chloride 1000ML 1, 1000 / 1000 000 ml @ 75 mls/hr IV .[id number] [facility] Rx#:[id number] 0.9 % Sodium Chloride 1000ML 1, 1000 / 1000 000 ml @ 999 mls/hr IV .[id number] ONE Rx#:[id number] Azithromycin 500 mg In 0.9 % 250 / 250 Sodium Chloride 250 ml @ 250 mls/hr IV ONCE ONE Rx#:[id number] Ceftriaxone Sodium 1 gm In 0.9 50 / 50 % Sodium Chloride 50 ml @ 100 mls/hr IV ONCE ONE Rx#:[id number] Output: Output, Urine Amount 875 / 1025 150 / 1025 Other: Number of Unmeasured Voids 1 Weight 56.926 kg 56.79 kg Patient Weight 01/02/25 23:59 Weight 56.79 kg Laboratory Results - last 24 hr 01/01/25 18:40: WBC 12.5 H, RBC 3.75 L, Hgb 11.0 L, Hct 34.5 L, MCV 92.0, MCH 29.3, MCHC 31.9, RDW 13.7, Plt Count 221, MPV 9.3, Neut % (Auto) 88.6 H, Lymph % (Auto) 3.4 L, [place] % (Auto) 6.3, Eos % (Auto) 0.0 L, Baso % (Auto) 0.3, Neut # (Auto) 11.1 H, Lymph # (Auto) 0.4 L, [place] # (Auto) 0.8, Eos # (Auto) 0.0, Baso # (Auto) 0.0, Total Counted 100, Neutrophils % (Manual) 91 H, Lymphocytes % (Manual) 5 L, Monocytes % (Manual) 4, Sodium 124 L, Potassium 4.4, Chloride 90 L, Carbon Dioxide 28, Anion Gap 10.4, BUN 24 H, Creatinine 1.10 H, Estimated Creat Clear 36, Estimated GFR 48 L, Est GFR ( Amer) 58 L, Glucose 151 H, Calcium 8.8, Magnesium 2.0, Total Bilirubin 0.8, AST 34, ALT 28, Alkaline Phosphatase 49, Total Creatine Kinase 73, Troponin I < 0.01, NT-Pro-B Natriuret Pep 1470 H, Total Protein 7.4, Albumin 4.1, Globulin 3.3 H, Albumin/Globulin Ratio 1.2, Lipase 28 01/01/25 19:42: VBG pH 7.34, VBG pCO2 50.3, VBG pO2 35.3, VBG HCO3 26.7, VBG Total CO2 28.2 H, VBG O2 Saturation 66.3, VBG Base Excess 0.9, VBG Lactic Acid 2.4 H 01/01/25 20:30: Lactate 1.6 01/01/25 21:10: Urine Color Yellow, Urine Appearance Clear, Urine pH 6.0, Ur Specific [place] <= 1.005, Urine Protein Negative, Urine Glucose (UA) 2+, Urine Ketones Negative, Urine Blood Negative, Urine Nitrate Negative, Urine Bilirubin Negative, Urine Urobilinogen 0.2, Ur Leukocyte Esterase Negative, Urine RBC 3-5, Urine WBC Occasional, Ur Squamous Epith Cells Occasional, Urine Bacteria 3+, Urine Sodium 6.0 L, Urine Opiates Screen Positive H, Urine Methadone Screen Negative, Ur Barbituates Screen Negative, Ur Phencyclidine Scrn Negative, Ur Amphetamines Screen Negative, U Benzodiazepines Scrn Positive H, Urine Cocaine Screen Negative, U Marijuana (THC) Screen Negative 01/02/25 00:28: Lactate 2.3 H, Troponin I < 0.01 01/02/25 03:13: Troponin I < 0.01 01/02/25 08:57: WBC 10.9 H, RBC 3.61 L, Hgb 10.9 L, Hct 34.0 L, MCV 94.2, MCH 30.2, MCHC 32.1, RDW 14.0, Plt Count 188, MPV 9.0, Neut % (Auto) 86.3 H, Lymph % (Auto) 4.8 L, [place] % (Auto) 7.5, Eos % (Auto) 0.0 L, Baso % (Auto) 0.3, Neut # (Auto) 9.4 H, Lymph # (Auto) 0.5 L, [place] # (Auto) 0.8, Eos # (Auto) 0.0, Baso # (Auto) 0.0, Total Counted 100, Neutrophils % (Manual) 88 H, Lymphocytes % (Manual) 8 L, Monocytes % (Manual) 4, Platelet Estimate Normal, RBC Morphology Normal, Sodium 129 L, Potassium 3.9, Chloride 98, Carbon Dioxide 27, Anion Gap 7.9, BUN 16 D, Creatinine 0.90, Estimated Creat Clear 42, Estimated GFR 61, Est GFR ( Amer) 73 D, Glucose 127 H, Lactate 1.5, Calcium 7.8 L, Procalcitonin 4.26 H 01/02/25 11:55: Sodium 127 L, Potassium 3.9, Chloride 98, Carbon Dioxide 26, Anion Gap 6.9, BUN 17, Creatinine 0.90, Estimated Creat Clear 42, Estimated GFR 61, Est GFR ( Amer) 73, Glucose 104 H, Calcium 7.8 L I & O for Labs for Last 24 Hours: Intake & Output 12/30/24 12/31/24 01/01/25 01/02/25 23:59 23:59 23:59 23:59 Intake Total 1300 / 1480 1730 / 1730 Output Total 1025 / 1025 Balance 1300 / 780 705 / 705 Weight 56.926 kg 56.79 kg Microbiology Reports for the Last 24 Hours: Microbiology 01/02/25 06:00 Sputum - Expectorated Sputum Gram Stain - Final Constitutional: Present no acute distress, chronically ill appearing and cooperative Head: Present atraumatic and normocephalic ENT: Present normal exam Respiratory: Present normal respiratory effort; Absent rhonchi, wheezes or crackles Cardiac: Present Reg Rate and Rhythm GI: Present soft and normal bowel sounds; Absent distention or tenderness Extremities: Absent edema Skin: Present intact; Absent erythema Neuro: Present Grossly Intact, alert, awake, oriented x 3 and moves all extremities Assessment and Plan *Assessment and plan (1) Left lower lobe pneumonia: Status: Acute Qualifiers: Pneumonia type: due to unspecified organism Qualified Code(s): J18.9 - Pneumonia, unspecified organism Category: Medical Code(s): J18.9 - Pneumonia, unspecified organism (2) Hyponatremia: Status: Acute Category: Medical Code(s): E87.1 - Hypo-osmolality and hyponatremia (3) Acute kidney injury: Status: Acute Category: Medical Code(s): N17.9 - Acute kidney failure, unspecified (4) Generalized weakness: Status: Acute Category: Medical Code(s): R53.1 - Weakness (5) Leukocytosis: Status: Acute Qualifiers: Leukocytosis type: unspecified Qualified Code(s): D72.829 - Elevated white blood cell count, unspecified Category: Medical Code(s): D72.829 - Elevated white blood cell count, unspecified (6) Lactic acidosis: Status: Acute Category: Medical Code(s): E87.20 - Acidosis, unspecified (7) Altered mental status: Status: Acute Qualifiers: Altered mental status type: unspecified Qualified Code(s): R41.82 - Altered mental status, unspecified Category: Medical Code(s): R41.82 - Altered mental status, unspecified Plan On evaluation, patient's PSI/port score is 98. This is due to age, hyponatremia, heart failure history, and being female. Meeting inpatient criteria for her pneumonia and her hyponatremia. Showing improvement today. Continues to require inpatient management. Continuing broad-spectrum antibiotics with ceftriaxone and azithromycin. Anticipate discharge in the next day or 2. Plan for home health at time of discharge per therapy recommendations. Problems addressed as follows: Left upper lobe community-acquired bacterial pneumonia Altered mental status: Most likely in the setting of metabolic encephalopathy; improved Leukocytosis with left shift - Patient's mentation is back to her baseline, weakness improving - Continue 1 g of Rocephin IV daily and 250 mg azithromycin p.o. daily - Supplemental oxygen as needed for goal sats greater 90%. Weaned to 1 L on rounds. - Blood cultures x 2, pending final results, negative at this time - White count improved to 10.9, hemoglobin 10.9. Repeat CBC, CMP, magnesium ordered for the morning -Pro-Salvatore 4.26. Hyponatremia Acute kidney injury: Most likely prerenal; baseline creatinine is within normal limits - May be multifactorial in the setting of decreased p.o. intake and hypovolemia - Patient is currently receiving SSRI and Bumex - Urine sodium 6, monitoring every 6 hours. Concern for total body sodium deficiency. Improved to 129 this morning. - Correct between 8 to 10 mEq/day. - Once patient becomes euvolemic and serum sodium is close to 130, we can discontinue patient's IV hydration 3 cm adrenal adenoma - Currently patient is without any significant symptomology of adrenal dysfunction - Will consider outpatient workup 5 cm AAA: Is stable without any evidence of dissecting; defer management to patient's provider currently following Breast cancer (hers 2): Will continue patient's anastrozole 1 mg tablet daily once med rec is updated Full code Regular diet Heparin 5000 unit TID
--- NOTE | 2025-01-02 15:58 | PC.NURSE ---
PT IS SITTING ON SOB WITH FAMILY AT BEDSIDE. ALERT AND ORIENTED X4. EATING AND DRINKING FAIR. PT HAS AMBULATED TO THE BATHROOM WITH WALKER AND STANDBY ASSIST. LUNG SOUNDS DIMINISHED WITH SCATTERED RHONCHI. MEDICATED PER MAR FOR CHRONIC BACK PAIN. ROOM AIR SATURATION THIS AFTERNOON WAS 84-87%. O2 SATURATION MAINTAINS 92-96% ON 1 L NC. WILL CONTINUE TO MONITOR.
[2025-01-02 16:00] VITALS: BP 115/67; PULSE 90; RESP 14; TEMP 36.8; O2SAT 92
[2025-01-02 18:28] LABS: Chloride 98 mmol/L (98-107); Potassium 3.8 mmoL/L (3.5-5.1); Sodium 127 mmol/L (136-145)
[2025-01-02 18:31] LABS: Anion Gap 4.8 mEq/L (5-15); Blood Urea Nitrogen 17 mg/dl (7-17); Calcium 7.9 mg/dl (8.4-10.2); Carbon Dioxide 28 mmol/L (22.0-30.0); Creatinine Clearance Estimated 42 mL/min (50-200); Creatinine,Serum 0.90 mg/dl (0.52-1.04); Estimated Glomerular Filt Rate 61 ml/min (>60); GFR (African American) 73 ML/MIN (>60); Glucose 149 mg/dl (74-100)
[2025-01-02 20:00] VITALS: BP 127/64; PULSE 86; RESP 18; TEMP 36.9; O2SAT 97
[2025-01-02] MEDS: CEFTRIAXONE 1 GM 1 GM in 0.9 % SODIUM CHLORIDE 50 ML IV (20:04)
[2025-01-02] MEDS: MELATONIN 5MG TABLET 5 MG PO (21:24)
[2025-01-03] VITALS (7 sets, daily range): BP systolic 100–155; BP diastolic 49–81; PULSE 87–90; RESP 14–18; TEMP 36.6–38.2; O2SAT 1–95; BMI 25.2
[2025-01-03 01:41] LABS: Chloride 100 mmol/L (98-107); Potassium 3.9 mmoL/L (3.5-5.1); Sodium 127 mmol/L (136-145)
[2025-01-03 01:44] LABS: Anion Gap 5.9 mEq/L (5-15); Blood Urea Nitrogen 16 mg/dl (7-17); Calcium 7.6 mg/dl (8.4-10.2); Carbon Dioxide 25 mmol/L (22.0-30.0); Creatinine Clearance Estimated 42 mL/min (50-200); Creatinine,Serum 0.70 mg/dl (0.52-1.04); Estimated Glomerular Filt Rate 81 ml/min (>60); GFR (African American) 98 ML/MIN (>60); Glucose 104 mg/dl (74-100)
--- NOTE | 2025-01-03 03:56 | PC.NURSE ---
Alert and oriented. Complained of headache and anxiety, treated per may. O2 sat dropped while sleeping or after exertion, patient O2 sat has been titrated per need, currently 2L NC. Ambulates to restroom with walker. Fever over night, treated per may and resolved. Daughter remained at bedside. No other complaints. Lung sounds diminished. Call light in reach.
[2025-01-03] MEDS: HYDROCODONE/APAP 5/325 MG TABLET 1 TAB PO ×2 (04:35→15:58)
[2025-01-03 06:52] LABS: Hematocrit 33.1 % (37.0-47.0); Hemoglobin 10.3 g/dL (12.2-16.2); Immature Granulocytes % 1.6 %; Mean Corpuscular HGB Conc 31.1 g/dL (31.8-35.4); Mean Corpuscular Hemoglobin 30.0 pg (27.0-31.2); Mean Corpuscular Volume 96.5 fl (81-99); Nucleated Red Blood Cells % 0 %; Platelet Count 197 K/mm3 (142-424); Red Blood Count 3.43 M/mm3 (4.20-5.40); Red Cell Distribution Width-SD 50.4 fL; White Blood Count 10.5 K/mm3 (4.8-10.8)
[2025-01-03] MEDS: LEVOTHYROXINE 150MCG (0.15MG)TAB 150 MCG PO (06:53)
[2025-01-03 07:04] LABS: Chloride 100 mmol/L (98-107); Potassium 3.7 mmoL/L (3.5-5.1); Sodium 129 mmol/L (136-145)
[2025-01-03 07:07] LABS: Anion Gap 6.7 mEq/L (5-15); Blood Urea Nitrogen 15 mg/dl (7-17); Calcium 7.4 mg/dl (8.4-10.2); Carbon Dioxide 26 mmol/L (22.0-30.0); Creatinine Clearance Estimated 44 mL/min (50-200); Creatinine,Serum 0.70 mg/dl (0.52-1.04); Estimated Glomerular Filt Rate 81 ml/min (>60); GFR (African American) 98 ML/MIN (>60); Glucose 98 mg/dl (74-100)
[2025-01-03] MEDS: ANASTROZOLE 1 MG 1 EACH PO (09:19)
[2025-01-03] MEDS: SENNA 8.6MG TABLET 17.2 MG PO (09:21)
[2025-01-03] MEDS: IRBESARTAN 75MG TABLET 37.5 MG PO (09:21)
[2025-01-03] MEDS: EMPAGLIFLOZIN 10MG TABLET 10 MG PO (09:24)
[2025-01-03] MEDS: AZITHROMYCIN 250MG TABLET 250 MG PO (09:24)
[2025-01-03] MEDS: AMLODIPINE 5MG TABLET 5 MG PO (09:24)
[2025-01-03] MEDS: NICOTINE 21MG/24HR PATCH 21 MG TD (09:26)
[2025-01-03] MEDS: HEPARIN SODIUM 5,000 UNIT/ML VIAL 5000 UNIT SUBCUT ×2 (09:26→21:05)
[2025-01-03 11:49] LABS: RBC Morphology Normal; Total Cells Counted 100
[2025-01-03 14:18] LABS: Chloride 98 mmol/L (98-107); Potassium 3.7 mmoL/L (3.5-5.1); Sodium 128 mmol/L (136-145)
[2025-01-03 14:21] LABS: Anion Gap 9.7 mEq/L (5-15); Blood Urea Nitrogen 14 mg/dl (7-17); Calcium 8.1 mg/dl (8.4-10.2); Carbon Dioxide 24 mmol/L (22.0-30.0); Creatinine Clearance Estimated 44 mL/min (50-200); Creatinine,Serum 0.80 mg/dl (0.52-1.04); Estimated Glomerular Filt Rate 69 ml/min (>60); GFR (African American) 84 ML/MIN (>60); Glucose 87 mg/dl (74-100)
--- NOTE | 2025-01-03 15:16 | P.PN_ITS ---
Subjective *Date: 01/03/25 *Time: 15:16 Interval history: Required 2 L oxygen overnight. Temperature to 100.7. White count improving. No nausea or vomiting. Seeing slow improvement in sodium. 129 on morning labs. Tolerating p.o. intake. Still fatigued but doing better. Alert and oriented x 3 Medical Exam Vital signs and Labs for Last 24 Hours: Vital Signs Temp Pulse Resp BP Pulse Ox O2 Del Method O2 Flow Rate 01/03/25 08:55 Nasal Cannula 01/03/25 08:00 1 L Nasal Cannula 01/03/25 07:54 99.6 F 90 14 121/66 95 Nasal Cannula 2 01/03/25 06:51 Nasal Cannula 2 01/03/25 05:00 Nasal Cannula 2 01/03/25 04:00 98.9 F 90 14 130/58 L 93 L Nasal Cannula 2 01/03/25 03:00 Nasal Cannula 2 01/03/25 01:00 99.6 F 110/54 L 93 L Nasal Cannula 2 01/03/25 00:38 Nasal Cannula 1 01/03/25 00:00 100.7 F H 88 18 155/81 H 93 L Nasal Cannula 2 01/02/25 23:00 Nasal Cannula 2 01/02/25 21:00 Nasal Cannula 1 01/02/25 20:00 Nasal Cannula 1 01/02/25 20:00 98.5 F 86 18 127/64 97 Nasal Cannula 1 01/02/25 18:12 Nasal Cannula 1 01/02/25 16:51 Nasal Cannula 1 01/02/25 16:00 98.3 F 90 14 115/67 92 L Room Air 1 Intake and Output 01/02/25 01/03/25 01/03/25 23:59 07:59 15:59 Intake Total 1113.75 / 3143.75 300 / 420 120 / 420 Output Total 0 / 1025 0 / 0 0 / 0 Balance 1113.75 / 2118.75 300 / 420 120 / 420 Intake: Intake, Oral Amount 240 / 1270 300 / 420 120 / 420 Intake, Total IV Amount 873.75 / 1873.75 0.9 % Sodium Chloride 1000ML 1, 823.75 / 1823.75 000 ml @ 75 mls/hr IV .[id number] [facility] Rx#:[id number] Ceftriaxone 1 gm 1 gm In 0.9 % 50 / 50 Sodium Chloride 50 ml @ 100 mls /hr IV Q24H [facility] Rx#:[id number] Output: Output, Urine Amount 0 / 1025 0 / 0 0 / 0 Other: Number of Unmeasured Voids 1 1 Weight 60.781 kg Patient Weight 01/03/25 23:59 Weight 60.781 kg Laboratory Results - last 24 hr 01/02/25 18:10: Sodium 127 L, Potassium 3.8, Chloride 98, Carbon Dioxide 28, Anion Gap 4.8 L, BUN 17, Creatinine 0.90, Estimated Creat Clear 42, Estimated GFR 61, Est GFR ( Amer) 73, Glucose 149 H D, Calcium 7.9 L 01/03/25 00:33: Sodium 127 L, Potassium 3.9, Chloride 100, Carbon Dioxide 25, Anion Gap 5.9, BUN 16, Creatinine 0.70 D, Estimated Creat Clear 42, Estimated GFR 81, Est GFR ( Amer) 98 D, Glucose 104 H D, Calcium 7.6 L 01/03/25 06:13: WBC 10.5, RBC 3.43 L, Hgb 10.3 L, Hct 33.1 L, MCV 96.5, MCH 30.0, MCHC 31.1 L, RDW 14.3, Plt Count 197, MPV 9.1, Neut % (Auto) 83.9 H, Lymph % (Auto) 5.0 L, [place] % (Auto) 7.0, Eos % (Auto) 2.1, Baso % (Auto) 0.4, Neut # (Auto) 8.8 H, Lymph # (Auto) 0.5 L, [place] # (Auto) 0.7, Eos # (Auto) 0.2, Baso # (Auto) 0.0, Total Counted 100, Neutrophils % (Manual) 85 H, Lymphocytes % (Manual) 7 L, Monocytes % (Manual) 8, Platelet Estimate Normal, RBC Morphology Normal, Sodium 129 L, Potassium 3.7, Chloride 100, Carbon Dioxide 26, Anion Gap 6.7, BUN 15, Creatinine 0.70, Estimated Creat Clear 44, Estimated GFR 81, Est GFR ( Amer) 98, Glucose 98, Calcium 7.4 L 01/03/25 14:00: Sodium 128 L, Potassium 3.7, Chloride 98, Carbon Dioxide 24, Anion Gap 9.7, BUN 14, Creatinine 0.80, Estimated Creat Clear 44, Estimated GFR 69, Est GFR ( Amer) 84, Glucose 87, Calcium 8.1 L I & O for Labs for Last 24 Hours: Intake & Output 12/31/24 01/01/25 01/02/25 01/03/25 23:59 23:59 23:59 23:59 Intake Total 1300 / 1480 2843.75 / 3143.75 420 / 420 Output Total 1025 / 1025 0 / 0 Balance 1300 / 780 1818.75 / 2118.75 420 / 420 Weight 56.926 kg 56.79 kg 60.781 kg Microbiology Reports for the Last 24 Hours: Microbiology 01/01/25 21:10 Urine,Clean Catch Urine Culture - Final NO GROWTH AFTER 48 HOURS Constitutional: Present no acute distress, chronically ill appearing and cooperative Head: Present atraumatic and normocephalic ENT: Present normal exam Respiratory: Present normal respiratory effort; Absent rhonchi, wheezes or crackles Cardiac: Present Reg Rate and Rhythm GI: Present soft and normal bowel sounds; Absent distention or tenderness Extremities: Absent edema Skin: Present intact; Absent erythema Neuro: Present Grossly Intact, alert, awake, oriented x 3 and moves all extremities Assessment and Plan *Assessment and plan (1) Left lower lobe pneumonia: Status: Acute Qualifiers: Pneumonia type: due to unspecified organism Qualified Code(s): J18.9 - Pneumonia, unspecified organism Category: Medical Code(s): J18.9 - Pneumonia, unspecified organism (2) Hyponatremia: Status: Acute Category: Medical Code(s): E87.1 - Hypo-osmolality and hyponatremia (3) Acute kidney injury: Status: Acute Category: Medical Code(s): N17.9 - Acute kidney failure, unspecified (4) Generalized weakness: Status: Acute Category: Medical Code(s): R53.1 - Weakness (5) Leukocytosis: Status: Acute Qualifiers: Leukocytosis type: unspecified Qualified Code(s): D72.829 - Elevated white blood cell count, unspecified Category: Medical Code(s): D72.829 - Elevated white blood cell count, unspecified (6) Lactic acidosis: Status: Acute Category: Medical Code(s): E87.20 - Acidosis, unspecified (7) Altered mental status: Status: Acute Qualifiers: Altered mental status type: unspecified Qualified Code(s): R41.82 - Altered mental status, unspecified Category: Medical Code(s): R41.82 - Altered mental status, unspecified Plan On evaluation, patient's PSI/port score is 98. This is due to age, hyponatremia, heart failure history, and being female. Meeting inpatient criteria for her pneumonia and her hyponatremia. Showing improvement today. Continues to require inpatient management. Continuing broad-spectrum antibiotics with ceftriaxone and azithromycin. Anticipate discharge in the next day or 2. Plan for home health at time of discharge per therapy recommendations. Problems addressed as follows: Left upper lobe community-acquired bacterial pneumonia Altered mental status: Most likely in the setting of metabolic encephalopathy; improved Leukocytosis with left shift - Patient's mentation is back to her baseline, weakness improving - Continue 1 g of Rocephin IV daily for 5 days. Received 250 mg azithromycin p.o. today. Will administer 500 mg tomorrow to complete 1500 mg total course - Supplemental oxygen as needed for goal sats greater 90%. Weaned to 1 L on rounds. - Blood cultures x 2, pending final results, negative at this time - White count remains normal at 10.5, hemoglobin 10.3. Pro-Salvatore 4.26. Hyponatremia Acute kidney injury: - Most likely prerenal; baseline creatinine is within normal limits - May be multifactorial in the setting of decreased p.o. intake and hypovolemia - Patient is currently receiving SSRI and Bumex -BUN 15, creatinine 0.7. Potassium 3.7, chloride 100 - Urine sodium 6, monitoring every 6 hours. Concern for total body sodium deficiency. Improved to 129 this morning. Repeat BMP ordered for 2 PM. If does not increase further, will initiate 500 mg sodium chloride p.o. twice daily. - Correct between 8 to 10 mEq/day. - Discontinue IV fluid; administer 1 mg Bumex p.o. once. Cautious about volume overload - Repeat BMP, CBC ordered for the morning Hypertension HFpEF: Continue amlodipine 5 mg daily, Jardiance 10 mg daily, irbesartan 37.5 mg daily 3 cm adrenal adenoma - Currently patient is without any significant symptomology of adrenal dysfunction - Will consider outpatient workup 5 cm AAA: Is stable without any evidence of dissecting; defer management to patient's provider currently following Breast cancer (hers 2): Will continue patient's anastrozole 1 mg tablet daily once med rec is updated Full code Regular diet Heparin 5000 unit TID
[2025-01-03] MEDS: MAGNESIUM CITRATE 296ML BOTTLE 296 ML PO (15:57)
[2025-01-03] MEDS: BUMETANIDE 1 MG TABLET PO (15:59)
[2025-01-03] MEDS: SODIUM CHLORIDE 1,000MG TABLET 500 MG PO (15:59)
[2025-01-03] MEDS: CEFTRIAXONE 1 GM 1 GM in 0.9 % SODIUM CHLORIDE 50 ML IV (21:05)
[2025-01-03] MEDS: ACETAMINOPHEN 325MG TAB 650 MG PO (21:18)
[2025-01-03] MEDS: MELATONIN 5MG TABLET 5 MG PO (21:43)
[2025-01-04 02:20] VITALS: BP 132/73; PULSE 84; RESP 16; TEMP 36.9; O2SAT 94
[2025-01-04 04:00] VITALS: BMI 25.3
--- NOTE | 2025-01-04 05:30 | PC.NURSE ---
Alert and oriented. Bowel movement this shift. No complaints. Patient was checked hourly per policy. Vital signs done when patient woke up to use bathroom. 2L NC throughout night. Lung sounds diminished. Call light in reach.
[2025-01-04] MEDS: LEVOTHYROXINE 150MCG (0.15MG)TAB 150 MCG PO (06:56)
[2025-01-04 08:00] VITALS: BP 125/67; PULSE 74; RESP 16; TEMP 36.8; O2SAT 1; O2SAT 98
[2025-01-04 08:56] VITALS: BMI 25.3
[2025-01-04] MEDS: AZITHROMYCIN 250MG TABLET 500 MG PO (09:42)
[2025-01-04] MEDS: CHOLECALCIFEROL 1,000 UNITS (25MCG) TABLET 125 MCG PO (09:43)
[2025-01-04] MEDS: EMPAGLIFLOZIN 10MG TABLET 10 MG PO (09:46)
[2025-01-04] MEDS: ANASTROZOLE 1 MG 1 EACH PO (09:46)
[2025-01-04] MEDS: IRBESARTAN 75MG TABLET 37.5 MG PO (09:47)
[2025-01-04] MEDS: AMLODIPINE 5MG TABLET 5 MG PO (09:48)
[2025-01-04] MEDS: HEPARIN SODIUM 5,000 UNIT/ML VIAL 5000 UNIT SUBCUT (09:51)
[2025-01-04 10:17] LABS: Hematocrit 34.3 % (37.0-47.0); Hemoglobin 11.0 g/dL (12.2-16.2); Immature Granulocytes % 0.2 %; Mean Corpuscular HGB Conc 32.1 g/dL (31.8-35.4); Mean Corpuscular Hemoglobin 30.6 pg (27.0-31.2); Mean Corpuscular Volume 95.3 fl (81-99); Nucleated Red Blood Cells % 0.2 %; Platelet Count 240 K/mm3 (142-424); Red Blood Count 3.60 M/mm3 (4.20-5.40); Red Cell Distribution Width-SD 49.2 fL; White Blood Count 8.4 K/mm3 (4.8-10.8)
[2025-01-04] MEDS: SODIUM CHLORIDE 1,000MG TABLET 500 MG PO (10:48)
[2025-01-04] MEDS: HYDROCODONE/APAP 5/325 MG TABLET 1 TAB PO (10:56)
[2025-01-04 11:05] LABS: Chloride 97 mmol/L (98-107); Potassium 3.5 mmoL/L (3.5-5.1); Sodium 129 mmol/L (136-145)
[2025-01-04 11:08] LABS: Blood Urea Nitrogen 12 mg/dl (7-17); Creatinine Clearance Estimated 45 mL/min (50-200); Creatinine,Serum 0.70 mg/dl (0.52-1.04); Estimated Glomerular Filt Rate 81 ml/min (>60); GFR (African American) 98 ML/MIN (>60)
[2025-01-04 11:09] LABS: Anion Gap 8.5 mEq/L (5-15); Calcium 7.8 mg/dl (8.4-10.2); Carbon Dioxide 27 mmol/L (22.0-30.0); Glucose 145 mg/dl (74-100)
--- NOTE | 2025-01-04 11:13 | EXP.DC.SUM ---
General Admission date:: 01/01/25 Discharge date: 01/04/25 HPI HPI HPI: [facility],This is a 79-year-old female with past medical history significant for COPD (has as needed home O2 at 2 L), hyponatremia, breast cancer, allergic rhinitis, lung nodule, AAA, pulmonary hypertension, HFpEF, SVT, hypothyroidism, emphysema, anxiety, hypertension, and arthritis of the hip who presents with a chief complaint of confusion, fatigue, difficulty walking, and generalized weakness. Due to patient's symptoms, she presented to the emergency room for evaluation. While in the emergency room, CT scan of the chest revealed left upper lobe pneumonia, left common carotid artery stenosis, 3 cm right adrenal adenoma, and 5 cm infrarenal abdominal aortic aneurysm. Patient also had some low serum sodium levels. As a result, patient has been admitted for further management. During my evaluation of the patient, patient states that she has been having generalized weakness without any focal deficits. She reports difficulty ambulating today. Daughter was reporting some confusion but they reports she is now at her baseline. Moreover, patient states she has had a decreased p.o. intake. Patient is currently prescribed citalopram and Bumex daily. She appears to be hypovolemic. She is currently denying any chest pain, lightheadedness, dizziness, fever, chills, rigors, nausea, vomiting, headache, PND, orthopnea, lower extremity swelling, or diarrhea. 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 CT scan of the head was negative for any acute intracranial process. Additional pertinent vitals obtained include a white blood cell count of 12.5, red blood cell count of 3.75, hemoglobin Alex 0.0, hematocrit 34.5, neutrophils 88.6%, sodium of 124, chloride of 90, BUN 24, creatinine 1.10, GFR 48, blood glucose 451, and BNP of 1470. Hospital Course Hospital Course Hospital Course: The patient was admitted [facility] floor with telemetry monitoring. Imaging, labs and inflammatory markers were assessed and trended. Her laboratory studies identified improvement and stability. Her discharge sodium was 128 and her creatinine was 0.8. She identified improvement after her IV and oral antibiotic therapy and requested to be discharged home. On day of discharge I am accompanied by her nurse Hong and the patient is accompanied by her 2 daughters. Case management assisted with discharge needs including home health. She understands the importance of completing her oral antibiotic therapy and follow-up with her recruitment coordinator to discuss the broad differential diagnoses for hyponatremia including her home prescribed SSRI therapy. She will follow-up with her PCP and consultants as recommended. She understands importance of complete tobacco cessation to improve her health. Exam Data for Last 24 hours Vital signs and Labs for Last 24 Hours: Temp Pulse Resp BP Pulse Ox O2 Del Method O2 Flow Rate 98.3 F 74 16 125/67 98 Nasal Cannula 2 01/04/25 08:00 01/04/25 08:00 01/04/25 08:00 01/04/25 08:00 01/04/25 08:00 01/04/25 08:00 01/04/25 08:00 Laboratory Results - last 24 hr 01/03/25 06:13: Total Counted 100, Neutrophils % (Manual) 85 H, Lymphocytes % (Manual) 7 L, Monocytes % (Manual) 8, Platelet Estimate Normal, RBC Morphology Normal 01/03/25 14:00: Sodium 128 L, Potassium 3.7, Chloride 98, Carbon Dioxide 24, Anion Gap 9.7, BUN 14, Creatinine 0.80, Estimated Creat Clear 44, Estimated GFR 69, Est GFR ( Amer) 84, Glucose 87, Calcium 8.1 L 01/04/25 10:10: WBC 8.4, RBC 3.60 L, Hgb 11.0 L, Hct 34.3 L, MCV 95.3, MCH 30.6, MCHC 32.1, RDW 13.8, Plt Count 240, MPV 8.7, Neut % (Auto) 85.3 H, Lymph % (Auto) 7.0 L, Tift % (Auto) 6.4, Eos % (Auto) 0.9, Baso % (Auto) 0.2, Neut # (Auto) 7.2, Lymph # (Auto) 0.6 L, Tift # (Auto) 0.5, Eos # (Auto) 0.1, Baso # (Auto) 0.0 I & O for Last 24 hours: Intake & Output 01/01/25 01/02/25 01/03/25 01/04/25 23:59 23:59 23:59 23:59 Intake Total 1300 / 1480 2843.75 / 3143.75 1810 / 2110 580 / 580 Output Total 1025 / 1025 0 / 0 0 / 0 Balance 1300 / 780 1818.75 / 2118.75 181 / 2109 580 / 580 Weight 56.926 kg 56.79 kg 60.781 kg 60.963 kg Constitutional Constitutional: no acute distress and cooperative *Routine Respiratory Exam Respiratory: Present rhonchi, normal respiratory effort and symmetric chest movement *Routine Cardiovascular Exam Cardiovascular: Present RRR *Routine Extremities Exam Extremities: Absent edema *Routine Neurological Exam Neurological: Present alert, oriented X3, moving all extremities, vision grossly intact, hearing grossly intact and normal speech; Absent sensory deficit or motor deficit Routine Psychiatric Exam Psychiatric: Present normal affect, normal thought process, cooperative and good insight Results Data Completed and Pending Labs on day of discharge: Labs from last 24 hours 01/04/25 01/03/25 01/03/25 10:10 14:00 06:13 WBC 8.4 RBC 3.60 L Hgb 11.0 L Hct 34.3 L MCV 95.3 MCH 30.6 MCHC 32.1 RDW 13.8 Plt Count 240 MPV 8.7 Neut % (Auto) 85.3 H Lymph % (Auto) 7.0 L Tift % (Auto) 6.4 Eos % (Auto) 0.9 Baso % (Auto) 0.2 Neut # (Auto) 7.2 Lymph # (Auto) 0.6 L Tift # (Auto) 0.5 Eos # (Auto) 0.1 Baso # (Auto) 0.0 Total Counted 100 Neutrophils % (Manual) 85 H Lymphocytes % (Manual) 7 L Monocytes % (Manual) 8 Platelet Estimate Normal RBC Morphology Normal Sodium 128 L Potassium 3.7 Chloride 98 Carbon Dioxide 24 Anion Gap 9.7 BUN 14 Creatinine 0.80 Estimated Creat Clear 44 Estimated GFR 69 Est GFR ( Amer) 84 Glucose 87 Calcium 8.1 L DS: Diagnosis Discharge Diagnosis (1) Left lower lobe pneumonia: Status: Acute Code(s): J18.9 - Pneumonia, unspecified organism Qualifiers: Pneumonia type: due to unspecified organism Qualified Code(s): J18.9 - Pneumonia, unspecified organism (2) Hyponatremia: Status: Acute Code(s): E87.1 - Hypo-osmolality and hyponatremia (3) Acute kidney injury: Status: Acute Code(s): N17.9 - Acute kidney failure, unspecified (4) Generalized weakness: Status: Acute Code(s): R53.1 - Weakness (5) Leukocytosis: Status: Acute Code(s): D72.829 - Elevated white blood cell count, unspecified Qualifiers: Leukocytosis type: unspecified Qualified Code(s): D72.829 - Elevated white blood cell count, unspecified (6) Lactic acidosis: Status: Acute Code(s): E87.20 - Acidosis, unspecified (7) Altered mental status: Status: Acute Code(s): R41.82 - Altered mental status, unspecified Qualifiers: Altered mental status type: unspecified Qualified Code(s): R41.82 - Altered mental status, unspecified Meds Home Medications and Allergies Home Medications ?Medication ?Instructions ?Recorded ?Confirmed ?Type cholecalciferol (vitamin D3) 125 125 mcg PO DAILY 11/02/22 01/01/25 History mcg (5,000 unit) capsule diclofenac sodium 75 mg 75 mg PO BID #60 tabs 04/02/23 01/01/25 Rx tablet,delayed release alprazolam 0.5 mg tablet 0.5 mg PO QIDP PRN Anxiety 11/08/23 01/01/25 History citalopram 40 mg tablet 20 mg PO BID 11/08/23 01/01/25 History mecobalamin (vitamin B12) 2,500 2,500 mcg PO DAILY 11/08/23 01/01/25 History mcg chewable tablet potassium 99 mg tablet 99 mg PO DAILY 11/08/23 01/01/25 History Held on 01/04/25. Instructions: Resume on 01/14/25. Please discuss with your recruitment coordinator empagliflozin 10 mg tablet 10 mg PO DAILY 30 days #30 tabs 11/09/23 01/01/25 Rx (Jardiance) spironolactone 25 mg tablet 25 mg PO DAILY 30 days #30 tabs 11/09/23 01/01/25 Rx albuterol sulfate 90 mcg/actuation 2 puff inhalation Q6H PRN 11/23/23 01/01/25 Rx aerosol inhaler shortness of breath or wheezing 90 days #8.5 grams ipratropium 0.5 mg-albuterol 3 mg 3 ml inhalation QID PRN shortness 11/23/23 01/01/25 Rx (2.5 mg base)/3 mL nebulization of breath or wheezing 90 days #270 soln mL amlodipine 5 mg tablet 5 mg PO DAILY 30 days #30 tabs 12/26/23 01/01/25 Rx dicyclomine 20 mg tablet 20 mg PO BID 06/04/24 01/01/25 History bumetanide 1 mg tablet 1 mg PO BID 06/23/24 01/01/25 History hydrocodone 5 mg-acetaminophen 325 1 tab PO TID PRN Pain (Scale Score 10/28/24 01/01/25 History mg tablet 4-6) glycopyrrolate 9 mcg-formoterol 2 puff inhalation BID 90 days 12/17/24 01/01/25 Rx 4.8 mcg HFA aerosol inhaler #10.7 grams (Bevespi Aerosphere) anastrozole 1 mg tablet 1 mg PO DAILY 01/01/25 01/01/25 History irbesartan 75 mg tablet 37.5 mg PO DAILY 01/01/25 01/02/25 History melatonin 5 mg tablet 5 mg PO HS PRN Sleep 01/01/25 01/01/25 History montelukast 10 mg tablet 10 mg PO HS 01/01/25 01/02/25 History levothyroxine 150 mcg tablet 150 mcg PO DAILY 01/02/25 01/02/25 History azithromycin 500 mg tablet 500 mg PO DAILY 3 days #3 tabs 01/04/25 Rx New Prescriptions to Start Prescriptions: Blue Cazares Allergies Allergy/AdvReac Type Severity Reaction Status Date / Time doxycycline Allergy Mild Unknown Verified 11/21/24 11:52 allergy reaction adhesive Allergy Unknown Unknown Verified 11/21/24 11:52 allergy reaction Antihistamines - Allergy Unknown Unknown Verified 11/21/24 11:52 Ethylenediamine allergy reaction latex (LATEX) Allergy Unknown Rash Verified 11/21/24 11:52 duloxetine AdvReac Unknown Fatigued Verified 11/21/24 11:52 ketoprofen AdvReac Unknown I-RASH Verified 11/21/24 11:52 amoxicillin AdvReac Diarrhea Verified 11/21/24 11:52 Discharge Plan Disposition Patient Disposition: Home Health Service Condition: Fair Discharge Order Discharge Orders: Discharge Order (Routine); Ordered 01/04/25 Ordered By: Blue Haile Follow up Plan Follow up with: Sergei Gan MD [Referring, Nephrology] - Enter time for follow up Referral Note: Please keep follow-up appointment as previously scheduled. Shai Yang MD [Physician, Pulmonology] - 2 weeks Nae Cortés APRN [Primary Care Provider, Medical] - 01/06/25 9:45 am Prescriptions/Medication Reconciliation: New azithromycin 500 mg tablet 500 mg PO DAILY 3 Days Qty: 3 0RF Continued cholecalciferol (vitamin D3) 125 mcg (5,000 unit) capsule 125 mcg PO DAILY ipratropium-albuterol 0.5 mg-3 mg(2.5 mg base)/3 mL solution for nebulization 3 ml inhalation QID PRN (Reason: shortness of breath or wheezing) 90 Days Qty: 270 3RF albuterol sulfate 90 mcg/actuation HFA aerosol inhaler 2 puff inhalation Q6H PRN (Reason: shortness of breath or wheezing) 90 Days Qty: 8.5 3RF amlodipine 5 mg tablet 5 mg PO DAILY 30 Days Qty: 30 5RF bumetanide 1 mg tablet 1 mg PO BID dicyclomine 20 mg tablet 20 mg PO BID hydrocodone-acetaminophen 5-325 mg tablet 1 tab PO TID PRN (Reason: Pain (Scale Score 4-6)) Bevespi Aerosphere 9-4.8 mcg HFA aerosol inhaler 2 puff inhalation BID 90 Days Qty: 10.7 3RF diclofenac sodium 75 mg tablet,delayed release (DR/EC) 75 mg PO BID Qty: 60 0RF citalopram 40 mg tablet 20 mg PO BID alprazolam 0.5 mg tablet 0.5 mg PO QIDP PRN (Reason: Anxiety) mecobalamin (vitamin B12) 2,500 mcg Tablet,Chewable 2,500 mcg PO DAILY Jardiance 10 mg Tablet 10 mg PO DAILY 30 Days Qty: 30 0RF spironolactone 25 mg Tablet 25 mg PO DAILY 30 Days Qty: 30 0RF anastrozole 1 mg tablet 1 mg PO DAILY Rx Instructions: Take 1 tablet by mouth once daily irbesartan 75 mg tablet 37.5 mg PO DAILY montelukast 10 mg tablet 10 mg PO HS Rx Instructions: TAKE 1 TABLET BY MOUTH ONCE DAILY IN THE EVENING melatonin 5 mg Tablet 5 mg PO HS PRN (Reason: Sleep) levothyroxine 150 mcg tablet 150 mcg PO DAILY Patient Comments: TAKE 1 TABLET BY MOUTH ONCE DAILY IN THE MORNING ON AN EMPTY STOMACH Held potassium 99 mg Tablet 99 mg PO DAILY Hold Instructions: Resume on 01/14/25. Please discuss with your recruitment coordinator Problem Reconciliation Problems Reviewed?: Yes Patient Discharge Instructions ACTIVITY: Continue current activity DIET: cardiac Additional Instructions: Please discontinue smoking, it will improve your health Patient Instructions: DI for Pneumonia in Adults, DI for Hyponatremia, Stop Light Pneumonia, Stop Light COPD, Stop Light Heart Failure Print Language: Puerto Rican Providers Primary Care Provider: Nae Cortés Admit Provider: Lew Avina Attending Provider: Lew Avina
--- NOTE | 2025-01-05 10:41 | SW/DCPLANNER ---
Spoke with patient's daughter on the phone. patient's daughter stated that patient isnt feeling well today. Patient's daughter stated that she is aware of her upcoming appointments. Patient's daughter stated that she was not able to get her medicine picked up due to it not being sent so daughter called PCP and is getting filled now. Patient's daughter stated that she has no concerns or questions at this time. Camelia Langston
== END 2025-01-04 12:16 | disposition home health service (06) | DRG 640 ==
LOC: ER 21:26 → 2ND 21:51
PROVIDERS: Internal Medicine Adolescent Medicine; Nurse Practitioner Family; Physician Assistant; Admitting Provider Student in an Organized Health Care Education/Training Program; Emergency Provider Student in an Organized Health Care Education/Training Program; PCP Nurse Practitioner Family; Visit Provider Student in an Organized Health Care Education/Training Program
DX: E87.1 Hypo-osmolality and hyponatremia (principal); G93.41 Metabolic encephalopathy; J15.9 Unspecified bacterial pneumonia; J44.0 Chronic obstructive pulmonary disease with (acute) lower respiratory infection; N17.9 Acute kidney failure, unspecified; I50.32 Chronic diastolic (congestive) heart failure; E87.20 Acidosis, unspecified; I11.0 Hypertensive heart disease with heart failure; J43.9 Emphysema, unspecified; C50.919 Malignant neoplasm of unspecified site of unspecified female breast; E03.9 Hypothyroidism, unspecified; I71.43 Infrarenal abdominal aortic aneurysm, without rupture; E86.1 Hypovolemia; I65.23 Occlusion and stenosis of bilateral carotid arteries; D35.01 Benign neoplasm of right adrenal gland; F17.210 Nicotine dependence, cigarettes, uncomplicated; R53.1 Weakness; Z88.0 Allergy status to penicillin; Z88.1 Allergy status to other antibiotic agents; Z91.040 Latex allergy status; Z91.048 Other nonmedicinal substance allergy status; Z88.8 Allergy status to other drugs, medicaments and biological substances; Z79.890 Hormone replacement therapy; Z79.899 Other long term (current) drug therapy; Z71.6 Tobacco abuse counseling
CPT/HCPCS: 36415; 70450; 70496; 70498; 71045; 71275; 74174; 80048; 80053; 80307; 81001; 82550; 82803; 83605; 83690; 83735; 83880; 84145; 84484; 84540; 85007; 85025; 87070; 87086; 87205; 93005; 97162; 97165; 97530; 99285; J0456; J0696; J1644; J7030; J7050; Q9967

== ENCOUNTER 2025-01-08 15:36 | Outpatient (CLI) | payer MEDICARE, MEDICAID, SELFPAY ==
--- OUTSIDE RECORDS SUMMARY | 2025-01-08 15:39 | XMS_ITS | Encounter Summary ---
Author Organization [employer] ([place], [place], [place], [place]) Address [address] [place] [address] Care Team Providers Care Computer Meteorologist Name Role Phone Unavailable Primary Care Provider Unavailabl e Encounter Details Date Type Department Care Team (Late st Contact Info) Description 06/28/2018 Transcribed Document [facility] [place] Medicine [facility] [place] [address] ProviderKristel MD [facility] [place] [address] Social History Tobacco Use [...] Hip Pain Primary Care Provider RANDAL ALBARADO (REF)[facility] History of Present Illness This patient [...] for nitrites and LE Electronically signed by Tatiana Ponce Conversion Home Appliance Washing Machine Mechanic Cerner at 06/29/2022 1:33 PM CDT documented in this encounter Plan of Treatment Not on file documented as of this encounter Visit Diagnoses Not on filedocumented in this encounter
--- OUTSIDE RECORDS SUMMARY | 2025-01-08 15:39 | XMS_ITS | Encounter Summary ---
Author Organization [employer] ([place], [place], [place], [place]) Address [address] [place] [address] Care Team Providers Care Lastex Operator Name Role Phone Unavailable Primary Care Provider Unavailabl e Encounter Details Date Type Department Care Team (Late st Contact Info) Description 07/19/2018 Transcribed Document [facility] [place] Family Medicine [address] [place] [address] ProviderKristel MD [address] [place] [...]
--- OUTSIDE RECORDS SUMMARY | 2025-01-08 15:39 | XMS_ITS | Encounter Summary ---
Author Organization [employer] ([place], [place], [place], [place]) Address [address] [place] [address] Care Team Providers Care Gas Pipe Layer Name Role Phone Unavailable Primary Care Provider Unavailabl e Encounter Details Date Type Department Care Team (Late st Contact Info) Description 06/28/2018 Transcribed Document [facility] [place] [facility] [place] [address] ProviderKristel MD [address] [place] [address] Social History Tobacco Use Types [...] Source : Stated Height Entry Format : Beadle Height, Feet : 5 ft(Converted to: 152 cm, 60 Inch) Height, Inches : 1 Inch(Converted to: 0 ft 1 Inch, 2.54 cm) Clinical Height : 154.94 cm Weight Source : Standing scale Weight Entry Format : Beadle Clinical Dosing Weight : 65 kg Weight, Pounds : 143 lb Body Surface Area (BSA) : 1.64 m2 Body Mass Index : 27.1 kg/m2 (HI) [place] Body Weight : 47 kg CLARISSA GUERRERO [...] #2 Relationship : daughter Primary Language : Icelandic Communication Barrier : None CLARISSA GUERRERO RN [...]
--- OUTSIDE RECORDS SUMMARY | 2025-01-08 15:39 | XMS_ITS | Encounter Summary ---
Author Organization [facility] Address [address] [place] [address] Care Team Providers Care Stain Applicator Name Role Phone Nae Cortés CHANGE ADVISOR Primary Care Provider [phone] Reason for Visit * Reason Onset Date Comments HCN - Patient Message 01/08/2025 Encounter Details Date Type Department Care Team ([facility] st Contact Info) Description 01/08/2025 Telephone [facility] Nephrology, [facility] [address], [address] [place] [address] Sergei Gan MD [address] [place] [phone] HCN - Patient Message Social History Tobacco Use Types Packs/Day Years Used Date Smoking Tobacco: Every Day Cigarettes 1 53.2 Started: [birth year]/18/1970 Smokeless Tobacco: Never Alcohol Use [...] encounter Miscellaneous Notes * Telephone Encounter - Mey Zhu - 01/08/2025 8:59 AM EDT Clinical Concern/Question Reason for Call: pts daughter has questions about pts lab work. Pt was recently in the hospital andhad labs and she wants to know if that will work or if she needs to go get mor labs done. Best contact number: [phone] (mobile) Optimal time of day to reach caller: ANYTIME Additional comments/information from caller: None Note: Please do not reply to this message. Follow-up communication and further actions as a result of this message need to be communicated with the patient directly, if the patient is not active onMyChart. If the patient is active on MyChart, they will receive notification of the communication/outcome via [employer]. documented in this encounter Plan of Treatment Upcoming Encounters Date Type Department Care Team (Late st Contact Info) Description 01/16/2025 11:20 AM EST Office Visit [facility] [address] [place] [address] Sergei Gan MD [address] [place] [phone] 04/17/2025 11:00 AM EST Appointment [facility] [address] [place] [address] documented as of this encounter Visit Diagnoses [...] documented as of this encounter Care Teams Stain Applicator Relationship Specialty Start Date End Date Nae Cortés APRN [address] [place] [address] PCP - General 09/05/24 documented as of this encounter
--- OUTSIDE RECORDS SUMMARY | 2025-01-08 15:39 | XMS_ITS | Encounter Summary ---
Author Organization [employer] ([place], [place], [place], [place]) Address [address] [place] [address] Care Team Providers Care Director Equipment Name Role Phone Unavailable Primary Care Provider Unavailabl e Encounter Details Date Type Department Care Team (Late st Contact Info) Description 07/15/2018 Transcribed Document [facility] [place] Family Medicine [address] [place] [address] ProviderKristel MD [address] [place] [address] Social History Tobacco Use Types [...] LABOY /Sex: 1945 Female Med Rec #: [id number] Physician: DEREK DURAN MD-ORT Financial #: [id number] Pt. Type: I Room/Bed: 513/1 Admit/Disch: 07/15/18 04:51:00 - Institution: [facility] PreOp Case Times Entry 1 In Preop 07/15/18 05:40:00 Ready for Holding n/a Room Patient Ready for 07/15/18 07:12:00 Surgery Patient Out of Preop 07/15/18 07:25:00 Patient Out of n/a Holding Room Last Modified By: CHADWICK CHAN 07/15/18 12:29:59 [facility] PreOp Case Times Audit 07/15/18 12:29:59 Job Order Clerk: MAY Modifier: CATLETDD <+> 1 Patient Out of Preop Finalized By: CHADWICK CHAN Document Signatures Signed By: CHADWICK CHAN 07/15/18 12:30 documented in this encounter Plan of Treatment Not on file documented as of this encounter Visit Diagnoses Not on filedocumented in this encounter
--- OUTSIDE RECORDS SUMMARY | 2025-01-08 15:39 | XMS_ITS | Encounter Summary ---
Author Organization [employer] ([place], [place], [place], [place]) Address [address] [place] [address] Care Team Providers Care Global Sourcing Manager Name Role Phone Unavailable Primary Care Provider Unavailabl e Encounter Details Date Type Department Care Team (Late st Contact Info) Description 07/16/2018 Transcribed Document [facility] [place] Medicine [address] [place] [address] ProviderKristel MD [address] [place] [address] Social History Tobacco Use Types [...] 07/16/2018 9:54 EDT by NAYA MINOR Care Management-Experimental Welder Final Discharge Planning Discharge Arrangements : Patient Post-Acute Information Patient Name: CINDY BRAXTON Gender: Female : [birth year] Age: 73 Years No Post-Acute Placement(s) Listed No Post-Acute Service(s) Listed No [place] Referral(s) Listed NAYA MINOR, Care Management-Experimental Welder - 07/16/2018 9:54 EDT Accts Placement Outside [facility] Account #1 Service : ProFounder [facility] Organization : PHYSICAL THERAPY NAYA MINOR Care Management-Experimental Welder - 07/16/2018 9:54 EDT Discharge To Care Management : Home Health Services (Related/SOC within 3 days)-06 NAYA MINOR Care Management-Experimental Welder - 07/16/2018 9:54 EDT Electronically signed by Rosario [facility] Conversion Clinical Informatics Specialist Cerner at 06/29/2022 1:31 PM CDT documented in this encounter Plan of Treatment Not on file documented as of this encounter Visit Diagnoses Not on filedocumented in this encounter
--- OUTSIDE RECORDS SUMMARY | 2025-01-08 15:39 | XMS_ITS | Encounter Summary ---
Author Organization [employer] ([place], [place], [place], [place]) Address [address] [place] [address] Care Team Providers Care Wheel Assembler Name Role Phone Unavailable Primary Care Provider Unavailabl e Encounter Details Date Type Department Care Team (Late st Contact Info) Description 07/15/2018 Transcribed Document [facility] [place] [address] [place] [address] ProviderKristel MD [address] [place] [address] Social History Tobacco Use Types [...] Right Right UE Active ROM : [facility] Right UE Strength : [facility] Left UE Active ROM : [facility] Left UE Strength : [facility] VERO TAMEZ, PT - 07/15/2018 12:39 [...] VERO TAMEZ, PT - 07/15/2018 12:39 EDT Assembler Radio And Electrical Goals Other PT LTG Grid Goal #1 [...]
--- OUTSIDE RECORDS SUMMARY | 2025-01-08 15:39 | XMS_ITS | Encounter Summary ---
Author Organization [employer] ([place], [place], [place], [place]) Address [address] [place] [address] Care Team Providers Care Stripping Shovel Oiler Name Role Phone Unavailable Primary Care Provider Unavailmorris e Encounter Details Date Type Department Care Team (Late st Contact Info) Description 07/16/2018 Transcribed Document [facility] [place] [address] [place] [address] ProviderKristel MD [address] [place] [address] Social History Tobacco Use [...] EDT Electronically signed by Tatiana Ponce Conversion Carton Forming Machine Adjuster Cerner at 06/29/2022 1:43 PM CDT documented in this encounter Plan of Treatment Not on file documented as of this encounter Visit Diagnoses Not on filedocumented in this encounter
--- OUTSIDE RECORDS SUMMARY | 2025-01-08 15:39 | XMS_ITS | Encounter Summary ---
Author Organization [employer] ([place], [place], [place], [place]) Address [address] [place] [address] Care Team Providers Care Hawk Missile Air Defense Artillery Name Role Phone Unavailable Primary Care Provider Unavailabl e Encounter Details Date Type Department Care Team (Late st Contact Info) Description 06/28/2018 Transcribed Document [facility] [place] [address] [place] [address] ProviderKristel MD [address] [place], [...]
--- OUTSIDE RECORDS SUMMARY | 2025-01-08 15:39 | XMS_ITS | Encounter Summary ---
Author Organization [employer] ([place], [place], [place], [place]) Address [address] [place] [address] Care Team Providers Care Zinc Plating Machine Operator Name Role Phone Unavailable Primary Care Provider Unavailabl e Encounter Details Date Type Department Care Team (Late st Contact Info) Description 07/16/2018 Transcribed Document [facility] Radiology [address] [place] [address] Ronal Roebrt MD [address] [place] [address] Social History Tobacco Use Types Packs/Day [...] tab QHS Primary Care Provider RANDAL ALBARADO (REF)[facility] Time spent 35 minutes documented in this encounter Plan of Treatment Not on file documented as of this encounter Visit Diagnoses Not on filedocumented in this encounter
--- OUTSIDE RECORDS SUMMARY | 2025-01-08 15:39 | XMS_ITS | Encounter Summary ---
Author Organization [employer] ([place], [place], [place], [place]) Address [address] [place] [address] Care Team Providers Care Cocoa Bean Cleaner Name Role Phone Unavailable Primary Care Provider Unavailabl e Encounter Details Date Type Department Care Team (Late st Contact Info) Description 07/16/2018 Transcribed Document [facility] [place] Family Medicine [address] [place] [address] ProviderKristel MD [address] [place] [address] Social History Tobacco Use Types [...] 07/16/2018 9:54 EDT by NAYA MINOR Care Management-Tire Changer Aircraft Care Management Progress Note Discharge Arrangements : [...] Acute Providers : Yes MILY, NAYA, Care Management-Tire Changer Aircraft - 07/16/2018 9:54 EDT Electronically signed by Rosario, [facility] Conversion Senior Procurement Manager Cerner at 06/29/2022 1:33 PM CDT documented in this encounter Plan of Treatment Not on file documented as of this encounter Visit Diagnoses Not on filedocumented in this encounter
--- OUTSIDE RECORDS SUMMARY | 2025-01-08 15:39 | XMS_ITS | Clinical Summary ---
Author Organization [employer] ([place], [place], [place], [place]) Address [address] [place] [address] Care Team Providers Care Iron Piler Name Role Phone Unavailable Primary Care Provider [...] Date Bryson rded Speak language other than Palestinian at home Not on file 03/30/2023 Want [...]
--- OUTSIDE RECORDS SUMMARY | 2025-01-08 15:39 | XMS_ITS | Encounter Summary ---
Author Organization [employer] ([place], [place], [place], [place]) Address [address] [place] [address] Care Team Providers Care Meter Mechanic Name Role Phone Unavailable Primary Care Provider Unavailabl e Encounter Details Date Type Department Care Team (Late st Contact Info) Description 07/16/2018 Transcribed Document [facility] [place] [address] [place] [address] ProviderKristel MD [address] [place] [address] Social History Tobacco Use Types [...] Kristel ProviderMD - 07/16/2018 12:02 [place] [address] CINDY LABOY :1945 Visit Time:07/15/2018 Your Visit Summary Your Care Team Admitting Physician - RONAL ROBERT MD Attending Physician - DEREK DURAN MD-MENDYT Primary Care Physician - RANDAL ALBARADO (REF)[facility] Referring Physician - DEREK DURAN MD-ORT [...] 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 TO HER OWN HOME [phone] PT HAS ALL NEEDED DME Follow-Up Appointments Follow Up with JAIDEN LEBRON PA-C When 08/26/2018 10:00 AM EDT Comments Appointment has been made Where: [address] [facility] [address] [place] [address]- Follow Up with Follow up with primary [...] Barley. Bulgur wheat. Millet. Bran muffins. Popcorn. [place] wafer crackers. Vegetables Sweet potatoes. Spinach. Kale. Artichokes. Cabbage. Broccoli. Green peas. Carrots. Squash. Fruits Berries. Pears. Apples. Oranges. Avocados. Prunes and raisins. Dried figs. Meats and Other Protein Sources [place], kidney, christianson, and soy beans. Split peas. [...] gabriel has 11 g of protein. ??? Cardwell seeds ??? 1 oz has 5.5 g [...] floor. ??? Place frequently used items in yhvr-sg-qvaez places ??? Keep electrical cables out of [...] ??? Using the bathroom. ??? Using household layboy tender or toxic chemicals. ??? Touching or [...] Assistance with quitting is available by contacting 3-935-ZWJM-NOW. This is a free resource providing counseling, [...] computer, smartphone, or tablet. Just go to [employer] to get started. Questions? Call . Test [...] was given the opportunity to ask questions. Patient/Diversified Crops Farmworker Name: Patient/Diversified Crops Farmworker Signature: Relationship to Patient: Clinician/Hospital Diversified Crops Farmworker Signature: Date: documented in this encounter Plan of Treatment Not on file documented as of this encounter Visit Diagnoses Not on filedocumented in this encounter
--- OUTSIDE RECORDS SUMMARY | 2025-01-08 15:39 | XMS_ITS | Encounter Summary ---
Author Organization [employer] ([place], [place], [place], [place]) Address [address] [place] [address] Care Team Providers Care Color Buffer Name Role Phone Unavailable Primary Care Provider Unavailabl e Encounter Details Date Type Department Care Team (Late st Contact Info) Description 07/16/2018 Transcribed Document [facility] [place] Family Medicine [address] [place] [address] ProviderKristel MD [address] [place] [address] Social History Tobacco Use Types [...] EDT Electronically signed by Tatiana Ponce Conversion Dimension Specification Inspector Cerner at 06/29/2022 1:38 PM CDT documented in this encounter Plan of Treatment Not on file documented as of this encounter Visit Diagnoses Not on filedocumented in this encounter
--- OUTSIDE RECORDS SUMMARY | 2025-01-08 15:39 | XMS_ITS | Encounter Summary ---
Author Organization [employer] ([place], [place], [place], [place]) Address [address] [place] [address] Care Team Providers Care Refrigerating Machine Operator Name Role Phone Unavailable Primary Care Provider Grady peres Encounter Details Date Type Department Care Team (Late st Contact Info) Description 07/15/2018 Transcribed Document [facility] [place] [address] [place] [address] ProviderKristel MD [address] [place] [address] Social History Tobacco Use Types [...]
--- OUTSIDE RECORDS SUMMARY | 2025-01-08 15:39 | XMS_ITS | Encounter Summary ---
Author Organization Healthcare Address [address] [place] [address] Care Team Providers Care Clothing Sales Assistant Name Role Phone Nae Cortés FEED WEIGHER Primary Care Provider +1- [phone] Encounter Details Date Type Department Care Team (Late st Contact Info) Description 09/10/2024 Orders Only External Location [address] [place] [phone] Roselia [place] APRN [address] [facility] [address] [address] Social History Tobacco Use Types [...] Description 01/16/2025 11:20 AM EST Office Visit [facility] [address] [place] [phone] Sergei Gan MD [address] [place] [phone] 04/17/2025 11:00 AM EST Appointment [facility] [address] [place] [phone] documented as of this encounter Procedures Procedure Name Priority Date/Time Associated Diagnosis Comments CT OUTSIDE IMAGES 09/10/2024 1:16 PM EDT documented in this encounter Results * CT OUTSIDE IMAGES (09/10/2024 1:16 PM EDT) Anatomical Region Laterality Modality Computed Tomogra phy 09/10/2024 1:16 PM EDT Roselia Washington FEED WEIGHER IMG CT PROCEDURES Arianna hurd Result documented in this encounter Visit Diagnoses Not on filedocumented in this encounter Care Teams Clothing Sales Assistant Relationship Specialty Start Date End Date Nae Cortés APRN [address] [place] [address] PCP - General 09/05/24 documented as of this encounter
--- OUTSIDE RECORDS SUMMARY | 2025-01-08 15:39 | XMS_ITS | Encounter Summary ---
Author Organization [email or web address] ([place], [place], [place], [place]) Address [address] [place] [address] Care Team Providers Care Switchboard Operator Assistant Name Role Phone Unavailable Primary Care Provider Unavailabl e Encounter Details Date Type Department Care Team (Late st Contact Info) Description 07/15/2018 Transcribed Document [facility] [address] [place] [address] ProviderKristel MD [address] [place] [address] Social History Tobacco Use Types [...] Kristel ProviderMD - 07/15/2018 8:01 AM CDT [facility] [place] PACU Summary Primary Physician: DEREK DURAN MD-ORKevin Finalized Date/Time: 07/15/18 10:28:25 Pt. Name: EDSON LABOY /Sex: 1945 Female Med Rec #: [id number] Physician: DEREK DURAN MD-ORT Financial #: [id number] Pt. Type: I Room/Bed: 3/ Admit/Disch: 07/15/18 04:51:00 - Institution: [facility] OR PACU Case Times Entry 1 In PACU I 07/15/18 09:21:00 Ready for PACU 07/15/18 09:51:00 Discharge Discharge from PACU 07/15/18 10:10:00 I Last Modified By: Nikki Wang RN 07/15/18 10:27:52 [facility] Main OR PACU Case Times Audit 07/15/18 10:27:52 Enterprise Application Architect: HELFEP Modifier: HELFEP <+> 1 Ready for PACU Discharge <+> 1 Discharge from PACU I [facility] Main OR PACU Acuity Entry 1 Start Time 07/15/18 09:51:00 Stop Time 07/15/18 10:10:00 Acuity Level [facility] PACU Acuity I Last Modified By: Nikki Wang RN 07/15/18 10:28:21 Finalized By: Nikki Wang RN Document Signatures Signed By: Nikki Wang RN 07/15/18 10:28 Electronically signed by Rosario [facility] Conversion Filenet Admin Cerner at 06/29/2022 1:40 PM CDT documented in this encounter Plan of Treatment Not on file documented as of this encounter Visit Diagnoses Not on filedocumented in this encounter
--- OUTSIDE RECORDS SUMMARY | 2025-01-08 15:39 | XMS_ITS | Encounter Summary ---
Author Organization [employer] ([place], [place], [place], [place]) Address [address] [place] [address] Care Team Providers Care Traffic Representative Name Role Phone Unavailable Primary Care Provider Unavailabl e Encounter Details Date Type Department Care Team (Late st Contact Info) Description 07/16/[address] [facility] [place] Family Medicine [address] [place] [address] ProviderKristel MD [address] [place] [address] Social History Tobacco Use Types [...] form. Electronically signed by Tatiana Ponce Conversion Case Finishing Machine Adjuster Cerremy at 06/29/2022 1:43 PM CDT documented in this encounter Plan of Treatment Not on file documented as of this encounter Visit Diagnoses Not on filedocumented in this encounter
--- OUTSIDE RECORDS SUMMARY | 2025-01-08 15:39 | XMS_ITS | Encounter Summary ---
Author Organization [employer] ([place], [place], [place], [place]) Address [address] [place] [address] Care Team Providers Care Online Project Manager Name Role Phone Unavailable Primary Care Provider Unavailabl e Encounter Details Date Type Department Care Team (Late st Contact Info) Description 07/15/2018 Transcribed Document [facility] [place] Family Medicine [address] [place] [address] ProviderKristel MD [address] [place] [address] Social History Tobacco Use Types [...] Assist, minimal Toileting Device : Commode, bedside, [id number] commode Toilet Transfer Assist Level : Assist, [...] OSCAR FRANZ OTR/L - 07/15/2018 12:28 EDT Prom[employer] Group Ticket Sales Goals, OT Other LTG Grid Goal #1 [...] - 07/15/2018 12:28 EDT Electronically signed by [facility] Conversion Cryolite Recovery Operator Cerner at 06/29/2022 1:44 PM CDT documented in this encounter Plan of Treatment Not on file documented as of this encounter Visit Diagnoses Not on filedocumented in this encounter
--- OUTSIDE RECORDS SUMMARY | 2025-01-08 15:39 | XMS_ITS | Encounter Summary ---
Author Organization [employer] ([place], [place], [place], [place]) Address [address] [place] [address] Care Team Providers Care Pest Controller Name Role Phone Unavailable Primary Care Provider Unavailabl e Encounter Details Date Type Department Care Team (Late st Contact Info) Description 07/15/2018 Transcribed Document [facility] [place] [address] [place] [address] ProviderKristel MD [address] [place] [address] Social History Tobacco Use Types [...] 07/15/2018 6:15 EDT by Earlene Sheriff Patient Employee Operations Examiner Height and Weight, Clinical Dosing Height Source : Stated Height Entry Format : [place] Height, Feet : 5 ft(Converted to: 152 cm, 60 Inch) Height, Inches : 1 Inch(Converted to: 0 ft 1 Inch, 2.54 cm) Clinical Height : 154.94 cm Weight Source : Standing scale Weight Entry Format : [place] Clinical Dosing Weight : 63.18 kg Weight, Pounds : 139 lb Body Surface Area (BSA) : 1.62 m2 Body Mass Index : 26.3 kg/m2 (HI) [place] Body Weight : 47 kg Earlene Sheriff Patient Employee Operations Examiner - 07/15/2018 6:15 EDT Electronically signed by Rosario [facility] Conversion Emergency Management Director Cerner at 06/29/2022 1:18 PM CDT documented in this encounter Plan of Treatment Not on file documented as of this encounter Visit Diagnoses Not on filedocumented in this encounter
--- OUTSIDE RECORDS SUMMARY | 2025-01-08 15:39 | XMS_ITS | Encounter Summary ---
Author Organization Healthcare Address [address] [place] [address] Care Team Providers Care Material Mixer Name Role Phone Nae Cortés TRAM Primary Care Provider +1- [phone] Encounter Details Date Type Department Care Team (Late st Contact Info) Description 12/06/2023 Orders Only External Location [address] [place] [address] Provider, External Social History Tobacco [...] Description 01/16/2025 11:20 AM EST Office Visit [facility] [address] [place] [phone] Sergei Gan MD [address] [place] [phone] 04/17/2025 11:00 AM EST Appointment [facility] [address] [place] [address] documented as of this encounter [...] on filedocumented in this encounter Care Teams Material Mixer Relationship Specialty Start Date End Date Nae Cortés APRN [facility] [place] [address] PCP - General 09/05/24 documented as of this encounter
--- OUTSIDE RECORDS SUMMARY | 2025-01-08 15:39 | XMS_ITS | Encounter Summary ---
Author Organization [employer] ([place], [place], [place], [place]) Address [address] [place] [address] Care Team Providers Care Rn Birthing Name Role Phone Unavailable Primary Care Provider Unavailabl e Encounter Details Date Type Department Care Team (Late st Contact Info) Description 07/16/2018 Transcribed Document [facility] [place] [facility] [place] [address] ProviderKristel MD [address] [place] [address] Social History Tobacco Use Types [...]
--- OUTSIDE RECORDS SUMMARY | 2025-01-08 15:39 | XMS_ITS | Encounter Summary ---
Author Organization [employer] ([place], [place], [place], [place]) Address [address] [place] [address] Care Team Providers Care Carpenters Helper Name Role Phone Unavailable Primary Care Provider Unavailabl e Encounter Details Date Type Department Care Team (Late st Contact Info) Description 07/15/2018 Transcribed Document [facility] [place] [address] [place] [address] ProviderKristel MD [address] [place] [address] Social History Tobacco Use Types [...] LABOY /Sex: 1945 Female Med Rec #: [id number] Physician: DEREK DURAN MD-ORT Financial #: [id number] Pt. Type: I Room/Bed: / Admit/Disch: 07/15/18 04:51:00 - Institution: [facility] [place] IntraOp Case Attendance Entry 1 Entry 2 Entry 3 [address] Att[address]ey Ann [address] [place], Martha Wells RN Role Performed Scrub, Second Scrub, First Job Placement Officer, First Time In 07/15/18 07:28:00 07/15/18 07:28:00 [...] Brown, Frankie Brooks, Aysha Guerra MD-ORT Tech Abe Teacher Role Performed Surgeon/Proceduralist, Assistive Personnel Pulp Machine Operator First Time In 07/15/18 07:59:00 [...] Case Attendee CLARITZA VEGAS CSA LUNSFORD, JAMES, TUBERCULOSIS SPECIALIST MAHAMED BE, PAC Role Performed Coal Cager, First TUBERCULOSIS SPECIALIST/Nurse Filler And Trimmer Physician legal administrative assistant Time In 07/15/18 07:28:00 07/15/18 07:28:00 [...] [facility] IntraOp Case Attendance Audit 07/15/18 09:35:34 Panel Assembler: KARLOS Modifier: KARLOS 8 <+> Time Out 8 <*> Procedure Hip Total Anterior Approach 9 <+> Time Out 9 <*> Procedure Hip Total Anterior Approach 10 <+> Time Out 10 <*> Procedure Hip Total Anterior Approach 07/15/18 09:35:33 Panel Assembler: KARLOS Modifier: KARLOS 1 <+> Time Out [...] Procedure Hip Total Anterior Approach 07/15/18 08:26:33 Panel Assembler: KARLOS Modifier: KARLOS 7 <+> Time Out 7 <*> Procedure Hip Total Anterior Approach 9 <*> Time In 07/15/18 07:28:00 9 <*> Procedure Hip Total Anterior Approach 07/15/18 08:01:40 Panel Assembler: KARLOS Modifier: KARLOS 1 <*> Case Attendee DEREK DURAN MD-ORKevin 1 <*> Role Performed Surgeon/Proceduralist, First 1 <*> Time In 07/15/18 07:28:00 1 <*> Procedure Hip Total Anterior Approach 2 <*> Case Attendee Martha Torrez, RN 2 <*> Role Performed Job Placement Officer, First 2 <*> Time In 07/15/18 07:28:00 [...] Approach 5 <*> Case Attendee Deedee Brown, Faceter 5 <*> Role Performed Assistive Personnel 5 <*> Time In 07/15/18 07:28:00 5 <*> Procedure Hip Total Anterior Approach 6 <*> Case Attendee CLARITZA VEGAS, CSA 6 <*> Role Performed Coal Cager, First 6 <*> Time In 07/15/18 07:28:00 6 <*> Procedure Hip Total Anterior Approach 7 <*> Case Attendee MAHAMED BE, MIGUELINA 7 <*> Role Performed Physician legal administrative assistant 7 <*> Time In 07/15/18 07:28:00 7 <*> Procedure Hip Total Anterior Approach 8 <*> Case Attendee OTHER, ATTENDEE 8 <*> Role Performed Vendor 8 <*> Time In 07/15/18 07:28:00 8 <*> Procedure Hip Total Anterior Approach 8 <-> Other Attendee JER DIXON 9 <*> Case Attendee Aysha Brooks, Abe Teacher 9 <*> Role Performed Pulp Machine Operator 9 <*> Time In 07/15/18 07:28:00 9 <*> Procedure Hip Total Anterior Approach 10 <*> Case Attendee CELSO QUISPE CRNA 10 <*> Role Performed TUBERCULOSIS SPECIALIST/Nurse Filler And Trimmer 10 <+> Time In 10 <*> Procedure Hip Total Anterior Approach 10 <+> Other Attendee 07/15/18 07:52:23 Panel Assembler: KARLOS Modifier: KARLOS 1 <+> Time In [...] [facility] IntraOp Case Times Audit 07/15/18 09:35:17 Panel Assembler: KARLOS Modifier: JORDYNBLAND <+> 1 Out Room Time <+> 1 Stop Time 07/15/18 09:08:56 Panel Assembler: KARLOS Modifier: JORDYNBLAND <+> 1 Stop Time 07/15/18 08:01:26 Panel Assembler: MARTHABLAND Modifier: JORDYNBLAND <+> 1 Start Time [...] [facility] IntraOp Counts Verification Audit 07/15/18 08:50:53 Panel Assembler: KARLOS Modifier: SALENAAND <+> 2 Procedure <+> [...] RN 07/15/18 07:07:36 [facility] IntraOp General Case Lead Custodian 1 Case Information OR OR 01 E Case Level 1 Room Verified Yes Wound Class I - Clean Specialty SN Orthopedic Anesthesia Type General ASA Class 4 Diagnosis Preop Diagnosis DJD RIGHT HIP Postop Same As Preop No Postop Diagnosis DICTATED BY MD Last Modified By: Martha Torrez RN 07/15/18 07:53:11 [facility] IntraOp General Case Data Audit 07/15/18 07:53:11 Panel Assembler: KARLOS Modifier: KARLOS <+> 1 ASA Class <+> 1 Preop Diagnosis [facility] IntraOp Implant Log Entry 1 Entry 2 Entry 3 Type Implant (Synthetic) Implant (Synthetic) Implant (Synthetic) Implant Log Implant Type Hardware Hardware Hardware Tissue Implant Type Implant SHELL ACET LOGICAL 48MM LNER LGCL CP 50MM STEM HIP COXA CLLR Identification -[id number] ORIGIN [id number] Description Implant Quantity 1 1 1 Implant Site RIGHT HIP RIGHT HIP RIGHT HIP Implant Identification Model Number Implant Identification Serial Number Implant [id number] Identification Lot Number Implant Paxeon Reconstruction Paxeon Reconstruction Paxeon Reconstruction Identification Coordinator Hotels Name: Implant [id number] Identification Catalog Number Implant Size Implant Has an Yes Yes Yes Expiration Date Implant Expiration 06/10/23 02/08/23 04/11/23 Date Wasted Radioactive Material Time Implanted Tissue Implant Continue for Tissue Implant Documentation Tissue Identification Number Graft Prep Per Coordinator Hotels Instructions: Tissue Preparation Method: Reconstitution Solution: Reconstitution Solution Lot Number Reconstitution Solution Expiration Date: Thawing Solution Thawing Solution Lot Number Thawing Solution Expiration Date Preparation Materials, Other Preparation Materials, Other Lot Number Preparation Materials, Other Expiration Date Tissue Prepared/Processed By Coordinator Hotels Paperwork Completed Implant Type Comment Last Modified By: Martha Torrez RN Bland, Jordyn A, RN Bland, Jordyn A, RN 07/15/18 08:26:09 07/15/18 08:26:09 07/15/18 08:47:20 Entry 4 Type Implant (Synthetic) Implant Log Implant Type Hardware Tissue Implant Type Implant HEAD FEM CERC [id number] 32MM Identification -[id number] Description Implant Quantity 1 Implant Site RIGHT HIP Implant Identification Model Number Implant Identification Serial Number Implant [id number] Identification Lot Number Implant Paxeon Reconstruction Identification Coordinator Hotels Name: Implant [id number] Identification Catalog Number Implant Size Implant Has an Yes Expiration Date Implant Expiration 04/11/23 Date Wasted Radioactive Material Time Implanted Tissue Implant Continue for Tissue Implant Documentation Tissue Identification Number Graft Prep Per Coordinator Hotels Instructions: Tissue Preparation Method: Reconstitution Solution: Reconstitution Solution Lot Number Reconstitution Solution Expiration Date: Thawing Solution Thawing Solution Lot Number Thawing Solution Expiration Date Preparation Materials, Other Preparation Materials, Other Lot Number Preparation Materials, Other Expiration Date Tissue Prepared/Processed By Coordinator Hotels Paperwork Completed Implant Type Comment Last Modified By: Martha Torrez RN 07/15/18 08:47:20 [facility] [place] IntraOp Implant Log Audit 07/15/18 08:47:20 Panel Assembler: KARLOS Modifier: KARLOS <+> 3 Implant Identification Description <+> 3 Implant Identification Lot Number <+> 3 Implant Identification Coordinator Hotels Name: <+> 3 Implant Expiration Date <+> 3 Implant Identification Catalog Number <+> 4 Implant Identification Description <+> 4 Implant Identification Lot Number <+> 4 Implant Identification Coordinator Hotels Name: <+> 4 Implant Expiration Date <+> 4 Implant Identification Catalog Number 07/15/18 08:26:09 Panel Assembler: KARLOS Modifier: KARLOS <+> 1 Implant Identification Description <+> 1 Implant Identification Lot Number <+> 1 Implant Identification Coordinator Hotels Name: <+> 1 Implant Expiration Date <+> 1 Implant Identification Catalog Number <+> 2 Implant Identification Description <+> 2 Implant Identification Lot Number <+> 2 Implant Identification Coordinator Hotels Name: <+> 2 Implant Expiration Date <+> 2 Implant Identification Catalog Number 07/15/18 07:54:53 Panel Assembler: KARLOS Modifier: KARLOS <+> 3 Implant Site [...] vancomycin 1Gm vial - ANESTHETIC 1000MG/10 ML [id number] COCKTAIL-ROGER [id number] Combo Med List Time Administered Route of [...] Intra Op Sign Out Audit 07/15/18 09:35:26 Panel Assembler: KARLOS Modifier: KARLOS <+> 1 RN Sign [...] [facility] IntraOp Surgical Procedures Audit 07/15/18 09:08:57 Panel Assembler: KARLOS Modifier: KARLOS <+> 1 Start <+> [...] [facility] IntraOp Time Out Audit 07/15/18 08:01:30 Panel Assembler: KARLOS Modifier: KARLOS 1 <+> Time Out Pause Time 1 <*> Procedure to be Performed Hip Total Anterior Approach 07/15/18 07:56:31 Panel Assembler: KARLOS Modifier: KARLOS 1 <+> Beta Pat Administered 1 <*> Procedure to be Performed Hip Total Anterior Approach [facility] IntraOp X-Ray and Images Entry 1 X-Ray/Imaging Type Fluoroscopy Fluoroscopy Type C-Arm Site RIGHT HIP Tube Rebuilder Name Aysha Brooks, Abe Teacher Protective Devices Yes Used Last Modified By: Martha Torrez RN 07/15/18 07:56:43 Case Comments <None> Finalized By: Martha Torrez, RN Document Signatures Signed By: Martha Torrez RN 07/15/18 09:37 documented in this encounter Plan of Treatment Not on file documented as of this encounter Visit Diagnoses Not on filedocumented in this encounter
--- OUTSIDE RECORDS SUMMARY | 2025-01-08 15:39 | XMS_ITS | Encounter Summary ---
Author Organization [employer] ([place], [place], [place], [place]) Address [address] [place] [address] Care Team Providers Care Assistant Corporate Secretary Name Role Phone Unavailable Primary Care Provider Unavailabl e Encounter Details Date Type Department Care Team (Late st Contact Info) Description 07/15/[address] [facility] [place] Family Medicine [address] [place] [address] ProviderKristel MD [address] [place] [address] Social History Tobacco Use Types [...] Policy Numbers : Insurance 1 Health Plan: [employer] PPO Policy Number: [id number] Authorization Number: [id number] Insurance Primary Name : [employer] Medicare Authorization Status-Primary : Awaiting callback Authorization Number-Primary : [id number] Authorized Service Begin Date-Primary : 07/15/2018 EDT [...]
--- OUTSIDE RECORDS SUMMARY | 2025-01-08 15:39 | XMS_ITS | Encounter Summary ---
Author Organization [employer] ([place], [place], [place], [place]) Address [address] [place] [address] Care Team Providers Care Grooving Machine Operator Name Role Phone Unavailable Primary Care Provider Unavailabl e Encounter Details Date Type Department Care Team (Late st Contact Info) Description 07/15/2018 Transcribed Document [facility] [place] Family Medicine [address] [place] [address] ProviderKristel MD [address] [place] [address] Social History Tobacco Use Types [...] Youssef Rn Intervention Information: oxyCODONE Performed by Lnai Youssef Rn on 07/16/2018 11:09:00 EDT oxyCODONE,5mg [...]
--- OUTSIDE RECORDS SUMMARY | 2025-01-08 15:39 | XMS_ITS | Encounter Summary ---
Author Organization [employer] ([place], [place], [place], [place]) Address [address] [place] [address] Care Team Providers Care Die Filer Name Role Phone Unavailable Primary Care Provider Unavailabl e Encounter Details Date Type Department Care Team (Late st Contact Info) Description 07/15/2018 Transcribed Document [facility] [place] Family Medicine [address] [place] [address] ProviderKristel MD [address] [place] [address] Social History Tobacco Use Types [...] NIRU AIKEN, PT - 07/16/2018 10:39 EDT Detention Goals [...] EDT Electronically signed by Tatiana Ponce Conversion Technical Training Coordinator Cerner at 06/29/2022 1:43 PM CDT documented in this encounter Plan of Treatment Not on file documented as of this encounter Visit Diagnoses Not on filedocumented in this encounter
--- OUTSIDE RECORDS SUMMARY | 2025-01-08 15:39 | XMS_ITS | Encounter Summary ---
Author Organization [facility] Address [address] [place] [address] Care Team Providers Care Product Strategy Director Name Role Phone Nae Cortés TRAM Primary Care Provider +1- [phone] Encounter Details Date Type Department Care Team (Late st Contact Info) Description 12/06/2023 Orders Only External Location [address] [place] [address] Provider, External Social History Tobacco [...] Office Visit [facility] [address] [place] [phone] Sergei Gan MD [address] [place] [id number] 04/17/2025 11:00 AM EST Appointment [facility] Radiology [address] [place] [address] documented as of this encounter [...] on filedocumented in this encounter Care Teams Product Strategy Director Relationship Specialty Start Date End Date Nae Cortés APRN [address] [place] [address] PCP - General 09/05/24 documented as of this encounter
--- OUTSIDE RECORDS SUMMARY | 2025-01-08 15:39 | XMS_ITS | Referral Summary ---
Author Organization [employer] ([place], [place], [place], [place]) Address [address] [place] [address] Care Team Providers Care Rn Relief Charge Name Role Phone Unavailable Primary Care Provider [...] Date Bryson rded Speak language other than Australian at home Not on file 03/30/2023 Want [...]
--- OUTSIDE RECORDS SUMMARY | 2025-01-08 15:39 | XMS_ITS | Encounter Summary ---
Author Organization [employer] ([place], [place], [place], [place]) Address [address] [place] [address] Care Team Providers Care Corner Block Cutter Name Role Phone Unavailable Primary Care Provider Unavailabl e Encounter Details Date Type Department Care Team (Late st Contact Info) Description 07/15/2018 Transcribed Document [facility] [place] [address] [place] [address] ProviderKristel MD [address] [place] [address] Social History Tobacco Use Types [...] Source : Stated Height Entry Format : [place] Height, Feet : 5 ft(Converted to: 152 cm, 60 Inch) Height, Inches : 1 Inch(Converted to: 0 ft 1 Inch, 2.54 cm) Clinical Height : 154.94 cm Weight Source : Standing scale Weight Entry Format : [place] Clinical Dosing Weight : 63.18 kg Weight, Pounds : 139 lb Body Surface Area (BSA) : 1.62 m2 Body Mass Index : 26.3 kg/m2 (HI) [place] Body Weight : 47 kg Nicole Coley Rn - 07/15/2018 6:34 EDT Health Histories Smoking Status : 10 or more cigarettes (1/2 pack or more)/day in last 30 days Smokeless Tobacco Status : Never Desires Tobacco Cessation Medication : No Reason for No Tobacco Cessation Medication : Refuses FDA approved medications Implant/Device Type, Manager Camp and Model : left hip replacement, poss. [...] : No Tuberculosis Symptoms : None Nicole Cloey Rn - 07/15/2018 6:34 EDT Anesthesia/Transfusion History [...] Obtained From : Patient Primary Language : Italian Preferred Communication Mode : Verbal Communication Barrier [...] Scale Risk Level : 25-45 Medium Risk [place] Fall Interventions : Adequate lighting, Bed in [...] the text rendition version of the form. Unity Coma Unity Best Motor Response : Obey commands Unity Best Verbal Response : Oriented Unity Eye Opening Response : Spontaneous Maggi Coma Score : 15 Nicole Coley Rn - 07/15/2018 6:34 EDT documented in this encounter Plan of Treatment Not on file documented as of this encounter Visit Diagnoses Not on filedocumented in this encounter
--- OUTSIDE RECORDS SUMMARY | 2025-01-08 15:39 | XMS_ITS | Encounter Summary ---
Author Organization [facility] ([place], [place], [place], [place]) Address [address] [place] [address] Care Team Providers Care Grades 6 Through 8 Teacher Name Role Phone Unavailable Primary Care Provider Unavailabl e Encounter Details Date Type Department Care Team (Late st Contact Info) Description 07/16/2018 Transcribed Document [facility] [place] Family Medicine [address] [place] [address] ProviderKristel MD [address] [place] [address] Social History Tobacco Use Types [...] Kristel ProviderMD - 07/16/2018 12:09 [place] [address] CINDY LABOY :1945 Visit Time:07/15/2018 Your Visit Summary Your Care Team Admitting Physician - RONAL ROBERT MD Attending Physician - DEREK DURAN MD-MENDYT Primary Care Physician - RANDAL ALBARADO (REF[facility] Referring Physician - DEREK DURAN MD-ORT [...] 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 TO HER OWN HOME [phone] PT HAS ALL NEEDED DME Follow-Up Appointments Follow Up with JAIDEN LEBRON PA-C When 08/26/2018 10:00 AM EDT Comments Appointment has been made Where: [address] [facility] [address] [place] [address]- Follow Up with Follow up with primary [...] Barley. [place] wheat. Millet. Bran muffins. Popcorn. [place] wafer crackers. Vegetables Sweet potatoes. Spinach. Kale. Artichokes. Cabbage. Broccoli. Green peas. Carrots. Squash. Fruits Berries. Pears. Apples. Oranges. Avocados. Prunes and raisins. Dried figs. Meats and Other Protein Sources [place], kidney, [place], and soy beans. Split peas. [...] gabriel has 11 g of protein. ??? [place] seeds ??? 1 oz has 5.5 g [...] floor. ??? Place frequently used items in dbff-bd-upnsv places ??? Keep electrical cables out of [...] ??? Using the bathroom. ??? Using household transitional studies instructor or toxic chemicals. ??? Touching or taking [...] Assistance with quitting is available by contacting 2-288-QVNV-NOW. This is a free resource providing counseling, [...] sure to sign up for the [facility] patient portal, which gives you 02/10 access to your medical information ??? including these discharge instructions ??? using your computer, smartphone, or tablet. Just go to [employer] to get started. Questions? Call . Test [...] was given the opportunity to ask questions. Patient/Education Paraprofessional Name: Patient/Education Paraprofessional Signature: Relationship to Patient: Clinician/Hospital Education Paraprofessional Signature: Date: documented in this encounter Plan of Treatment Not on file documented as of this encounter Visit Diagnoses Not on filedocumented in this encounter
--- OUTSIDE RECORDS SUMMARY | 2025-01-08 15:39 | XMS_ITS | Encounter Summary ---
Author Organization [employer] ([place], [place], [place], [place]) Address [address] [place] [address] Care Team Providers Care Vest Finisher Name Role Phone Unavailable Primary Care Provider Unavailmorris e Encounter Details Date Type Department Care Team (Late st Contact Info) Description 07/15/2018 Transcribed Document [facility] [place] Family Medicine [address] [place] [address] ProviderKristel MD [address] [place], [...]
--- OUTSIDE RECORDS SUMMARY | 2025-01-08 15:39 | XMS_ITS | Encounter Summary ---
Author Organization [employer] ([place], [place], [place], [place]) Address [address] [place] [address] Care Team Providers Care Laboratory Mechanic Helper Name Role Phone Unavailable Primary Care Provider Unavailabl e Encounter Details Date Type Department Care Team (Late st Contact Info) Description 07/15/2018 Transcribed Document [facility] [place] Family Medicine [address] [place] [address] ProviderKristel MD [address] [place] [address] Social History Tobacco Use Types [...] home DANA PALMA OTR/L 07/16/2018 10:58 EDT Penitentiary Goals, OT Other LTG Grid Goal #1 [...]
--- OUTSIDE RECORDS SUMMARY | 2025-01-08 15:39 | XMS_ITS | Encounter Summary ---
Author Organization [employer] ([place], [place], [place], [place]) Address [address] [place] [address] Care Team Providers Care Device Engineer Name Role Phone Unavailable Primary Care Provider Unavailabl e Encounter Details Date Type Department Care Team (Late st Contact Info) Description 07/15/2018 Transcribed Document [facility] [place] [facility] [place] [address] ProviderKristel MD [address] [place] [address] Social History Tobacco Use Types [...] QHS Electronically signed by Tatiana Ponce Conversion Blueprinting Machine Operator Cerner at 06/29/2022 1:44 PM CDT documented in this encounter Plan of Treatment Not on file documented as of this encounter Visit Diagnoses Not on filedocumented in this encounter
--- OUTSIDE RECORDS SUMMARY | 2025-01-08 15:39 | XMS_ITS | Encounter Summary ---
Author Organization [facility] Address [address] [place] [address] Care Team Providers Care Career Development Engineer Name Role Phone Nae Cortés APRN Primary Care Provider +1- [phone] Reason for Referral * Consultation (Routine) - Closed Specialty Diagnoses / Procedures Referred By Radha santacruz Referred To Contact Nephrology Diagnoses Elevated BUN Elevated creatine kinase Nae Cortés APRN [address] [address] Phone: tel: fax: [address] [address] Phone: tel: fax: Referral ID Status Reason Start Date Expiration Date V isits Requested Visits Authorized [id number] Closed Specialty Services Required 08/27/2024 02/26/2026 1 1 Encounter Details Date Type Department Care Team (Late st Contact Info) Description 08/27/2024 Community [facility] Community Practice [address] [place] [address] Nae Cortés APRN [address] [address] Elevated BUN (Primary Dx); Elevated [...] 11:20 AM EST Office Visit [facility] [address] [facility] [address], [place] [phone] Sergei Gan MD [address] [place] [phone] 04/17/2025 11:00 AM EST Appointment [facility] Radiology [address] [place] [address] Scheduled Referrals Name Type Priority Associated Diagnoses Order Schedule Ambulatory referral to Nephrology Outpatient Referral Routine Elevated BUN Elevated creatine kinase Expected: 08/27/2024 (Approximate), Expires: 02/28/2026 documented as of this encounter Visit Diagnoses Diagnosis Elevated BUN- Primary Other abnormal blood chemistry Elevated creatine kinase Other nonspecific abnormal serum enzyme levels documented in this encounter Care Teams Career Development Engineer Relationship Specialty Start Date End Date Nae Cortés APRN [address] [place], [place] [id number] PCP - General 09/05/24 documented as of this encounter
--- OUTSIDE RECORDS SUMMARY | 2025-01-08 15:39 | XMS_ITS | Encounter Summary ---
Author Organization [employer] ([place], [place], [place], [place]) Address [address] [place] [address] Care Team Providers Care Bull Bucker Name Role Phone Unavailable Primary Care Provider Unavailabl e Encounter Details Date Type Department Care Team (Late st Contact Info) Description 07/22/2018 Transcribed Document [facility] [place] Family Medicine [address] [place] [address] ProviderKristel MD [address] [place] [address] Social History Tobacco Use Types [...] Policy Numbers : Insurance 1 Health Plan: [employer] PPO Policy Number: [id number] Authorization Number: [id number] Insurance Primary Name : [employer] Medicare Authorization Status-Primary : Notification only Reference Number-Primary : [id number] Authorization Number-Primary : [id number] Authorized Service Begin Date-Primary : 07/15/2018 EDT Authorization Comments-Primary : approved per availity for inpt Historical Authorization Comments-Primary : Comment 1: Uploaded clinicals to [employer] Medicare via [employer] by . (ERICK JONES RN-Utilization Review 07/15/2018 15:49) LYNN REID RN-Utilization Review - 07/22/2018 12:50 EDT Electronically signed by [facility], [facility] Conversion Ict Security Specialist Cerner at 06/29/2022 1:34 PM CDT documented in this encounter Plan of Treatment Not on file documented as of this encounter Visit Diagnoses Not on filedocumented in this encounter
--- OUTSIDE RECORDS SUMMARY | 2025-01-08 15:39 | XMS_ITS | Encounter Summary ---
Author Organization [employer] ([place], [place], [place], [place]) Address [address] [place] [address] Care Team Providers Care Cloth Finisher Name Role Phone Unavailable Primary Care Provider Unavailabl e Encounter Details Date Type Department Care Team (Late st Contact Info) Description 07/16/2018 Transcribed Document [facility] [address] [place] [address] Raj Ching MD [address] [place] [address] Social History Tobacco Use Types Packs/Day [...] Signature: __Cadence perez RN DS Phone #: __[phone] This is a permanent part of the Medical Record documented in this encounter Plan of Treatment Not on file documented as of this encounter Visit Diagnoses Not on filedocumented in this encounter
--- OUTSIDE RECORDS SUMMARY | 2025-01-08 15:39 | XMS_ITS | Encounter Summary ---
Author Organization [employer] ([place], [place], [place], [place]) Address [address] [place] [address] Care Team Providers Care Stull Hewer Name Role Phone Unavailable Primary Care Provider Unavailabl e Encounter Details Date Type Department Care Team (Late st Contact Info) Description 07/15/2018 Transcribed Document [facility] [place] [address] [place] [address] ProviderKristel MD [address] [place] [address] Social History Tobacco Use Types [...] Obtained From : Patient Primary Language : Spanish Preferred Communication Mode : Verbal Communication Barrier [...] Level : 46 or > High Risk [place] Fall Interventions : Adequate lighting, Bed in [...] : Refuses FDA approved medications Implant/Device Type, Sales Marketing Coordinator and Model : left hip replacement, poss. [...] Source : Stated Height Entry Format : [place] Height, Feet : 5 ft(Converted to: 152 cm, 60 Inch) Height, Inches : 1 Inch(Converted to: 0 ft 1 Inch, 2.54 cm) Clinical Height : 154.94 cm Weight Source : Standing scale Weight Entry Format : [place] Clinical Dosing Weight : 63.18 kg Weight, Pounds : 139 lb Body Surface Area (BSA) : 1.62 m2 Body Mass Index : 26.3 kg/m2 (HI) [place] Body Weight : 47 kg Nilda Claros [...]
--- OUTSIDE RECORDS SUMMARY | 2025-01-08 15:39 | XMS_ITS | Encounter Summary ---
Author Organization [employer] ([place], [place], [place], [place]) Address [address] [place] [address] Care Team Providers Care Development Mechanic Name Role Phone Unavailable Primary Care Provider Unavailabl e Encounter Details Date Type Department Care Team (Late st Contact Info) Description 07/15/2018 Transcribed Document [facility] Radiology [address] [place] [address] [place] [address] [place] [address] [address] Social History Tobacco Use Types [...] None. Primary Care Provider RANDAL ALBARADO (MD [facility] Chief Complaint Right hip pain History of [...] Medical SVT (supraventricular tachycardia) / SNOMED CT 45623393 / Confirmed Hypertension / SNOMED CT 8622105385 / Confirmed Hypothyroidism / SNOMED CT 08432652 / Confirmed Anxiety disorder / SNOMED CT 440101728 / Confirmed COPD (chronic obstructive pulmonary disease) / SNOMED CT 16849248 / Confirmed Osteoarthritis / SNOMED CT 9199720950 / Confirmed Hyperlipidemia / SNOMED CT 02121383 / Confirmed At risk for sleep apnea / IMO 54485943 / Confirmed, Active Problems (8) Anxiety disorder At risk for sleep apnea COPD (chronic obstructive pulmonary disease) Hyperlipidemia Hypertension Hypothyroidism Osteoarthritis SVT (supraventricular tachycardia) Histories Past Medical History: Active Problems (8) Anxiety disorder At risk for sleep apnea COPD (chronic obstructive pulmonary disease) Hyperlipidemia Hypertension Hypothyroidism Osteoarthritis SVT (supraventricular tachycardia) Family History: Significant for cancer Procedure history: Thyroidectomy (82692194). Tonsillectomy (836172288). Cholecystectomy (68825774). Tubal ligation (398294825). - Spontaneous vaginal delivery. left hip replacment. [...]
--- OUTSIDE RECORDS SUMMARY | 2025-01-08 15:39 | XMS_ITS | Encounter Summary ---
Author Organization [employer] ([place], [place], [place], [place]) Address [address] [place] [address] Care Team Providers Care Director Of Rotc Name Role Phone Unavailable Primary Care Provider Unavailmorris e Encounter Details Date Type Department Care Team (Late st Contact Info) Description 07/16/2018 Transcribed Document [facility] [place] [address] [place] [address] ProviderKristel MD [address] [place] [address] Social History Tobacco Use Types [...] Historical ProviderMD - 07/16/2018 2:00 AM CDT Clinical Pharmacy Manager Details Entered On: 07/16/2018 2:49 EDT Performed [...]
--- OUTSIDE RECORDS SUMMARY | 2025-01-08 15:40 | XMS_ITS | Encounter Summary ---
Author Organization [employer] ([place], [place], [place], [place]) Address [address] [place] [address] Care Team Providers Care Gutter Mouth Cutter Name Role Phone Unavailable Primary Care Provider Grady peres Encounter Details Date Type Department Care Team (Late st Contact Info) Description 07/16/2018 Transcribed Document [facility] [place] [address] [place] [address] ProviderKristel MD [address] [place] [address] Social History Tobacco Use Types [...]
--- OUTSIDE RECORDS SUMMARY | 2025-01-08 15:40 | XMS_ITS | Encounter Summary ---
Author Organization [employer] ([place], [place], [place], [place]) Address [address] [place] [address] Care Team Providers Care Agronomy Research Manager Name Role Phone Unavailable Primary Care Provider Unavailabl e Encounter Details Date Type Department Care Team (Late st Contact Info) Description 07/16/2018 Transcribed Document [facility] [place] [place] [address] [place] [address] ProviderKristel MD [address] [place] [address] Social History Tobacco Use Types [...] Barley. Bulgur wheat. Millet. Bran muffins. Popcorn. [place] wafer crackers. Vegetables Sweet potatoes. Spinach. Kale. Artichokes. Cabbage. Broccoli. Green peas. Carrots. Squash. Fruits Berries. Pears. Apples. Oranges. Avocados. Prunes and raisins. Dried figs. Meats and Other Protein Sources [place], kidney, [place], and soy beans. Split peas. [...] gabriel has 11 g of protein. ?? [place] seeds ??? 1 oz has 5.5 g [...] floor. ?? Place frequently used items in khve-nz-wjadk places ?? Keep electrical cables out of [...] ?? Using the bathroom. ?? Using household home care attendant or toxic chemicals. ?? Touching or taking [...]
--- OUTSIDE RECORDS SUMMARY | 2025-01-08 15:40 | XMS_ITS | Encounter Summary ---
Author Organization [employer] ([place], [place], [place], [place]) Address [address] [place] [address] Care Team Providers Care Boat Canvas Maker Installer Name Role Phone Unavailable Primary Care Provider Unavailabl e Encounter Details Date Type Department Care Team (Late st Contact Info) Description 07/16/2018 Transcribed Document [facility] [place] [address] [place] [address] ProviderKristel MD [address] [place] [address] Social History Tobacco Use Types [...] Kristel ProviderMD - 07/16/2018 12:10 [place] [address] CINDY LABOY :1945 Visit Time:07/15/2018 Your Visit Summary Your Care Team Admitting Physician - RONAL ROBERT MD Attending Physician - DEREK DURAN MD-MENDYT Primary Care Physician - RANDAL ALBARADO (REF)[facility] Referring Physician - DEREK DURAN MD-ORT Your [...] 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 TO HER OWN HOME [phone] PT HAS ALL NEEDED DME Follow-Up Appointments Follow Up with JAIDEN LEBRON PA-C When 08/26/2018 10:00 AM EDT Comments Appointment has been made Where: [address] [facility] [address] [place] [address]- Follow Up with Follow up with primary [...] Barley. Bulgur wheat. Millet. Bran muffins. Popcorn. [place] wafer crackers. Vegetables Sweet potatoes. Spinach. Kale. Artichokes. Cabbage. Broccoli. Green peas. Carrots. Squash. Fruits Berries. Pears. Apples. Oranges. Avocados. Prunes and raisins. Dried figs. Meats and Other Protein Sources [place], kidney, [place], and soy beans. Split peas. [...] gabriel has 11 g of protein. ??? [place] seeds ??? 1 oz has 5.5 g [...] floor. ??? Place frequently used items in wuzo-cm-ltmwo places ??? Keep electrical cables out of [...] ??? Using the bathroom. ??? Using household state fire marshal or toxic chemicals. ??? Touching or taking [...] Assistance with quitting is available by contacting 9-149-DQIR-NOW. This is a free resource providing counseling, [...] computer, smartphone, or tablet. Just go to [employer] to get started. Questions? Call . Test [...] was given the opportunity to ask questions. Patient/Electrician'S Assistant Name: Patient/Electrician'S Assistant Signature: Relationship to Patient: Clinician/Hospital Electrician'S Assistant Signature: Date: documented in this encounter Plan of Treatment Not on file documented as of this encounter Visit Diagnoses Not on filedocumented in this encounter
--- OUTSIDE RECORDS SUMMARY | 2025-01-08 15:40 | XMS_ITS | Encounter Summary ---
Author Organization [employer] ([place], [place], [place], [place]) Address [address] [place] [address] Care Team Providers Care Hot Tar Roofer Name Role Phone Unavailable Primary Care Provider Unavailabl e Encounter Details Date Type Department Care Team (Late st Contact Info) Description 07/16/2018 Transcribed Document [facility] [place] Family Medicine [address] [place] [address] ProviderKristel MD [address] [place] [address] Social History Tobacco Use Types [...]
--- OUTSIDE RECORDS SUMMARY | 2025-01-08 15:40 | XMS_ITS | Encounter Summary ---
Author Organization [employer] ([place], [place], [place], [place]) Address [address] [place] [address] Care Team Providers Care Supervisor Film Processing Name Role Phone Unavailable Primary Care Provider Unavailabl e Encounter Details Date Type Department Care Team (Late st Contact Info) Description 07/16/2018 Transcribed Document [facility] [place] [address] [place] [address] ProviderKristel MD [address] [place] [address] Social History Tobacco Use Types [...] 07/16/2018 9:53 EDT by NAYA MINOR, Care Management-Code And Test Clerk Initial Assessment I Previously Documented Living Environment : No qualifying data available. Living Situation : Home Patient Lives With : Alone Emergency Contact #1 : Sera Emergency Contact #1 Emergency Contact #1 Relationship : daughter Emergency Contact #2 : Nae Emergency Contact #2 Emergency Contact #2 Relationship : daughter NAYA MINOR, Care Management-Code And Test Clerk - 07/16/2018 9:53 EDT Initial Assessment II Sensory and Motor Deficits : Other: AYESHA Current Home Treatments and Equipment : Bedside commode, Shower chair, Walker NAYA MINOR, Care Management-Code And Test Clerk - 07/16/2018 9:53 EDT Discharge Needs I Anticipated Discharge Date : 07/16/2018 EDT Anticipated Discharge To, CM : Home with home health Current Home Treatment/Equipment : Current Home Treatment/Equipment No qualifying data available. NAYA MINOR, Care Management-Code And Test Clerk - 07/16/2018 9:53 EDT Discharge Needs II Professional Skilled Services : Professional Skilled Services No qualifying data available. Services and Community Resources : Home Health Needs Assistance with Transportation : No Discharge Options Discussed with Patient : [facility] [place] NAYA MINOR Care Management-Code And Test Clerk - 07/16/2018 9:53 EDT Electronically signed by Tatiana Ponce Conversion Screen Printing Equipment Setter Cerner at 06/29/2022 1:23 PM CDT documented in this encounter Plan of Treatment Not on file documented as of this encounter Visit Diagnoses Not on filedocumented in this encounter
--- OUTSIDE RECORDS SUMMARY | 2025-01-08 15:40 | XMS_ITS | Encounter Summary ---
Author Organization [employer] ([place], [place], [place], [place]) Address [address] [place] [address] Care Team Providers Care Loss Control Engineer Name Role Phone Unavailable Primary Care Provider Unavailabl e Encounter Details Date Type Department Care Team (Late st Contact Info) Description 07/16/2018 Transcribed Document [facility] [place] [address] [place] [address] ProviderKristel MD [address] [place] [address] Social History Tobacco Use Types [...] EDT Electronically signed by Tatiana Ponce Conversion Facilities Management Executive Cerner at 06/29/2022 1:22 PM CDT documented in this encounter Plan of Treatment Not on file documented as of this encounter Visit Diagnoses Not on filedocumented in this encounter
--- OUTSIDE RECORDS SUMMARY | 2025-01-08 15:40 | XMS_ITS | Encounter Summary ---
Author Organization [employer] ([place], [place], [place], [place]) Address [address] [place] [address] Care Team Providers Care Clothing Sales Assistant Name Role Phone Unavailable Primary Care Provider Grady peres Encounter Details Date Type Department Care Team (Late st Contact Info) Description 07/16/2018 Transcribed Document [facility] [place] [address] [place] [address] ProviderKristel MD [address] [place] [address] Social History Tobacco Use Types [...] EDT Electronically signed by Tatiana Ponce Conversion Melt House Centrifugal Operator Cerner at 06/29/2022 1:21 PM CDT documented in this encounter Plan of Treatment Not on file documented as of this encounter Visit Diagnoses Not on filedocumented in this encounter
--- OUTSIDE RECORDS SUMMARY | 2025-01-08 15:40 | XMS_ITS | Clinical Summary ---
Author Organization Healthcare Address [address] [place] [address] Care Team Providers Care Marketing Proposal Specialist Name Role Phone Nae Cortés TRAM Primary Care Provider [phone] Allergies Active Allergy Reactions Criticality Noted Date [...] 10 MG 10/16/2024 Act arcelia HYDROcodone-acet aminophen ([place]) 5-325 MG tablet 10/17/2024 Active irbesartan (Avapro) [...] Encounters Date Type Department Care Team Description 01/08/2025 Telephone [facility] Nephrology, Bone & Mineral Metabolism [address], [address] [place] [address] Sergei Gan MD HCN - Patient Message 10/21/2024 Telephone [facility] [place] [address] [place] [address] Sweta Jones 10/20/2024 11:00 AM EDT Office Visit [facility] Nephrology, Bone & Mineral Metabolism [address], [address] [place] [address] Sergei Gan MD Chronic diastolic heart failure (CMS/HCC) (Primary Dx); Hypervolemia associated with renal insufficiency; Other emphysema (CMS/HCC); Malignant neoplasm of female breast, unspecified estrogen receptor status, unspecified laterality, unspecified site of breast; Acute kidney injury (BETH) with acute tubular necrosis (ATN) (CMS/HCC); Hyponatremia 10/20/2024 Travel 10/17/2024 11:20 AM EDT Office Visit [facility] [address] [place] [address] Bjorn Galarza MD 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, [address] [place] [address] Osmany Martines Jose A 10/13/2024 Telephone [facility] [address] [place] [address] Bjorn Galarza MD HCN Clinical Concern/Question 10/10/2024 Telephone [facility] [place] [address] [place] [address] Sweta Jones from Last 3 Months Social [...] Description 01/16/2025 11:20 AM EST Office Visit [facility] [address] [place] [address] Sergei Gan MD [address] [place] [address] 04/17/2025 11:00 AM EST Appointment [facility] [address] [place] [address] Health Maintenance Due Date Last Done Comments [facility]-Bone Density Scan 1945 [facility]-Diabetes: Hemoglobin A1C 1946 [facility]-Hepatitis C Screening 1945 [facility]-Medicare Annual Wellness (AWV) 1945 [facility]-Infant/Child/Adol SDOH Screenings 1946 Diabetes: Dental Exam 1956 [facility]- SDOH Screenings 1964 [facility]-Adult SDOH Screenings 1964 [facility]-Zoster Vaccines (1 of 2) 1965 Lung Cancer Screening Shared Decision Making 1996 [facility]-Lung Cancer Screening 1996 [id number] Vaccine (3 - Moderna risk series) 06/16/2020 [...] patient's age to complete this topic [place] [address] [facility] MEDIC[facility] Advance Directives Documents on File Type Date Recorded 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
--- OUTSIDE RECORDS SUMMARY | 2025-01-08 15:40 | XMS_ITS | Encounter Summary ---
Author Organization [employer] ([place], [place], [place], [place]) Address [address] [place] [address] Care Team Providers Care Geologic Technician Name Role Phone Unavailable Primary Care Provider Unavailabl e Encounter Details Date Type Department Care Team (Late st Contact Info) Description 07/16/2018 Transcribed Document [facility] [place] [address] [place] [address] ProviderKristel MD [address] [place] [address] Social History Tobacco Use Types [...] On: 07/16/2018 9:10 EDT by Meche Oshea broomcorn grader Documentation Patient Disposition, General : Discharge Discharge [...] 07/16/2018 9:10 EDT Electronically signed by Rosario [facility] Conversion Maintenance Team Member Cerner at 06/29/2022 1:27 PM CDT documented in this encounter Plan of Treatment Not on file documented as of this encounter Visit Diagnoses Not on filedocumented in this encounter
[2025-01-08 15:46] LABS: Microscopic, Urine URINE MICROSCOPIC (MICROSCOPIC)
[2025-01-08 16:17] LABS: Hematocrit 36.3 % (37.0-47.0); Hemoglobin 11.4 g/dL (12.2-16.2); Mean Corpuscular HGB Conc 31.4 g/dL (31.8-35.4); Mean Corpuscular Hemoglobin 29.5 pg (27.0-31.2); Mean Corpuscular Volume 93.8 fl (81-99); Nucleated Red Blood Cells % 0 %; Platelet Count 360 K/mm3 (142-424); Red Blood Count 3.87 M/mm3 (4.20-5.40); Red Cell Distribution Width-SD 47.6 fL; White Blood Count 6.4 K/mm3 (4.8-10.8)
[2025-01-08 16:59] LABS: Albumin Level 2.6 g/dl (3.5-5.0); Chloride 92 mmol/L (98-107); Potassium 3.8 mmoL/L (3.5-5.1); Sodium 132 mmol/L (136-145)
[2025-01-08 17:02] LABS: Carbon Dioxide 37 mmol/L (22.0-30.0); Phosphorous 3.9 mg/dl (2.5-4.5)
[2025-01-08 17:03] LABS: Calcium 9.4 mg/dl (8.4-10.2); Glucose 106 mg/dl (74-100)
[2025-01-08 17:06] LABS: Anion Gap 6.8 mEq/L (5-15)
[2025-01-08 17:08] LABS: Blood Urea Nitrogen 18 mg/dl (7-17); Creatinine,Serum 0.80 mg/dl (0.52-1.04); Estimated Glomerular Filt Rate 69 ml/min (>60); GFR (African American) 84 ML/MIN (>60)
[2025-01-08 17:19] LABS: 25-OH Vitamin D, Total 35.2 ng/mL (30-100)
[2025-01-08 18:22] LABS: Bilirubin,Urine Negative (Negative); Color,Urine YELLOW (Yellow); Glucose,Urine (UA) 3+ (Negative); Ketones,Urine Negative (Negative); Leukocyte Esterase,Urine Negative (Negative); PH,Urine 6.0 (5.0-8.5); Protein,Urine Negative (Negative); Specific Gravity, Urine <= 1.005 (1.005-1.030); Urobilinogen,Urine 0.2 EU/dl (0.2)
[2025-01-08 18:33] LABS: WBC,Urine Occasional #/hpf (0-3)
[2025-01-08 18:34] LABS: Sodium,Urine Random 64.0 mmol/L (30-90)
== END 2025-01-08 23:59 | disposition home or self-care (01) ==
LOC: LAB 15:37
PROVIDERS: PCP Nurse Practitioner Family; Visit Provider Student in an Organized Health Care Education/Training Program
DX: I50.32 Chronic diastolic (congestive) heart failure (principal); N17.0 Acute kidney failure with tubular necrosis; E87.1 Hypo-osmolality and hyponatremia
CPT/HCPCS: 36415; 80069; 81001; 82043; 82306; 82570; 83935; 83970; 84156; 84540; 85027

== ENCOUNTER 2025-01-23 13:29 | Outpatient (CLI) | payer MEDICARE, MEDICAID, SELFPAY ==
--- NOTE | 2025-01-23 13:45 | MM_ITS ---
PROCEDURE INFORMATION: Exam: US Right Breast, Complete MG Bilateral Diagnostic Breast Tomosynthesis Exam date and time: 01/23/2025 1:56 PM Age: 79 years old Clinical indication: Follow-up of a right cancer, history of left breast cancer and left lumpectomy. TECHNIQUE: Imaging protocol: Complete ultrasound of all four quadrants of the right breast and the retroareolar regions, including ultrasound of the axilla when performed. Bilateral Diagnostic tomosynthesis and 2D mammography including computer-aided detection (CAD) when performed. Unilateral or bilateral exam. COMPARISON: US BREAST RT COMPLETE 07/22/2024 1:51 PM FINDINGS: MAMMOGRAPHY: Breast composition: There are scattered areas of fibroglandular density. Breast mammogram findings: Normal postlumpectomy changes are seen on the left including post surgical distortion, benign-type calcifications, parenchymal density, and skin thickening. In the right breast, a stable biopsy tissue marker is noted in the upper-outer quadrant. Minimal surrounding distortion is present. ULTRASOUND: Breast ultrasound findings: In the right breast, 10 o'clock axis, 7 cm from the nipple, there is a hypoechoic mass with associated biopsy tissue marker that measures 0.6 x 0.3 x 0.6 cm. Overall, this is minimally changed to slightly smaller since 07/22/2024. No new or suspicious mass. No axillary adenopathy. 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 Further follow-up and management per the patient's Cancer Care team. ASSESSMENT: BI-RADS Category 6: Known Biopsy-Proven Malignancy.
== END 2025-01-23 23:59 | disposition home or self-care (01) ==
LOC: RAD 13:29
PROVIDERS: PCP Nurse Practitioner Family; Visit Provider Internal Medicine Medical Oncology
DX: Z12.31 Encounter for screening mammogram for malignant neoplasm of breast (principal); C50.411 Malignant neoplasm of upper-outer quadrant of right female breast; R92.323 Mammographic fibroglandular density, bilateral breasts; Z98.890 Other specified postprocedural states
CPT/HCPCS: 76641; 77062; 77066; G0279